=== PATIENT | female | born 1940 | race Caucasian/White ===

== ENCOUNTER → 2017-03-26 18:02 | Outpatient (CLI) | payer MEDICARE, BC, SELFPAY | PROVIDERS: Family Provider Family Medicine Geriatric Medicine; PCP Family Medicine Geriatric Medicine; Visit Provider Family Medicine Geriatric Medicine | DX: N39.0 Urinary tract infection, site not specified (principal) | CPT/HCPCS: 87086; 87088 ==

== ENCOUNTER → 2017-03-28 12:10 | Outpatient (CLI) | payer MEDICARE, BC, SELFPAY ==
[2017-03-28 13:37] LABS: Anion Gap 8 (5-15); BUN 12 mg/dL (7-18); BUN/Creat Ratio 18.7 RATIO (10-20); Chloride 98 mmol/L (98-107); Creatinine, Serum 0.64 mg/dL (0.55-1.02); EST Glomerular Filtration Rate 95 mL/min (>60); Est Glom Filt Rate - Afr Amer 115 mL/min (>60); Glucose 90 mg/dL (70-110); Magnesium 2.1 mg/dL (1.6-2.6); Potassium 3.8 mmol/L (3.5-5.1); Sodium Level 134 mmol/L (136-145); T4 Total, Thyroxin 9.8 ug/dL (4.8-13.9); Thyroid Stim Hormone (TSH) 2.08 uIU/mL (0.358-3.74)
== END ==
PROVIDERS: Family Provider Family Medicine Geriatric Medicine; PCP Family Medicine Geriatric Medicine; Visit Provider Internal Medicine Cardiovascular Disease
DX: I47.2 Ventricular tachycardia (principal); I10 Essential (primary) hypertension
CPT/HCPCS: 36415; 80048; 83735; 84436; 84443

== ENCOUNTER → 2017-04-12 06:36 | Outpatient (CLI) | payer MEDICARE, BC, SELFPAY ==
--- NOTE | 2017-04-12 09:44 | STRESSREP ---
Stress Test Report Date: 04/12/2017 Procedure: Oncologic stress nuclear imaging study Indications: Ventricular tachycardia; CAD; status post PCI; ICD: Preoperative cardiovascular evaluation Consent: Per the patient Procedure: The patient underwent pharmacologic (Regadenoson) evaluation with a peak heart rate of 83 bpm (58% predicted maximal heart rate) with a peak blood pressure 158/82 mmHg. The baseline ECG demonstrated normal sinus rhythm with anteroseptal MS pattern of indeterminate age cannot be excluded. The peak pharmacologic ECG demonstrated no obvious ECG changes. There was an occasional PVC pretest, during infusion, and recovery. The patient had no complaint of chest discomfort during pharmacologic infusion or recovery. The examination was discontinued secondary to completion of protocol. Impression: 1. Pharmacologic (Regadenoson) evaluation 2. Peak pharmacologic ECG with no obvious ECG changes 3. Occasional PVC pretest, during infusion, and recovery 4. Nuclear images pending Myocardial perfusion imaging study: Technique: The patient was injected with 11.1 mCi of technetium 99m Cardiolite and subsequently rest SPECT Cardiolite nuclear imaging was obtained in the horizontal long, vertical long, and short axis views. The patient underwent pharmacologic (Regadenoson) evaluation with a peak heart rate of 83 bpm (58% predicted maximal heart rate) with a peak blood pressure 158/82 mmHg area the patient was injected with 33.3 mCi of technetium 99m Cardiolite and subsequently stress SPECT Cardiolite nuclear imaging was obtained in the horizontal long, vertical long, and short axis views. A gated Cardiolite study at peak stress was obtained. Interpretation: Rest and stress SPECT Cardiolite nuclear imaging status post realignment, normalization, and attenuation correction, demonstrates an area of diminished absence of myocardial perfusion/tracer uptake involving portions of the basal towards distal lateral segments which status post stress appear to be somewhat more prominent compared with rest. There is notation of diminished end systolic thickening and brightening in the aforementioned areas. The gated Cardiolite study demonstrates diminished myocardial thickening and inward wall motion in the aforementioned areas. The reported LVEF is 34%. Impression: 1. Rest and stress SPECT current nuclear imaging demonstrate myocardial perfusion changes appearing compatible with an area of previous myocardial injury/infarction involving the basal towards distal lateral segments with post stress myocardial perfusion changes appearing compatible with mild roberto-infarct related myocardial ischemia. 2. The gated Cardiolite study reports an LVEF of 34%. This note was generated with [employer] software. It may contain incorrect words, spelling, and punctuation that were not noted in checking the note before signing.
--- NOTE | 2017-04-12 09:49 | STRESSREP_ITS ---
Stress Test Report Date: 04/12/2017 Procedure: Oncologic stress nuclear imaging study Indications: Ventricular tachycardia; CAD; status post PCI; ICD: Preoperative cardiovascular evaluation Consent: Per the patient Procedure: The patient underwent pharmacologic (Regadenoson) evaluation with a peak heart rate of 83 bpm (58% predicted maximal heart rate) with a peak blood pressure 158 /82 mmHg. The baseline ECG demonstrated normal sinus rhythm with anteroseptal MT pattern of indeterminate age cannot be excluded. The peak pharmacologic ECG demonstrated no obvious ECG changes. There was an occasional PVC pretest, during infusion, and recovery. The patient had no complaint of chest discomfort during pharmacologic infusion or recovery. The examination was discontinued secondary to completion of protocol. Impression: 1. Pharmacologic (Regadenoson) evaluation 2. Peak pharmacologic ECG with no obvious ECG changes 3. Occasional PVC pretest, during infusion, and recovery 4. Nuclear images pending Myocardial perfusion imaging study: Technique: The patient was injected with 11.1 mCi of technetium 99m Cardiolite and subsequently rest SPECT Cardiolite nuclear imaging was obtained in the horizontal long, vertical long, and short axis views. The patient underwent pharmacologic (Regadenoson) evaluation with a peak heart rate of 83 bpm (58% predicted maximal heart rate) with a peak blood pressure 158/82 mmHg area the patient was injected with 33.3 mCi of technetium 99m Cardiolite and subsequently stress SPECT Cardiolite nuclear imaging was obtained in the horizontal long, vertical long, and short axis views. A gated Cardiolite study at peak stress was obtained. Interpretation: Rest and stress SPECT Cardiolite nuclear imaging status post realignment, normalization, and attenuation correction, demonstrates an area of diminished absence of myocardial perfusion/tracer uptake involving portions of the basal towards distal lateral segments which status post stress appear to be somewhat more prominent compared with rest. There is notation of diminished end systolic thickening and brightening in the aforementioned areas. The gated Cardiolite study demonstrates diminished myocardial thickening and inward wall motion in the aforementioned areas. The reported LVEF is 34%. Impression: 1. Rest and stress SPECT current nuclear imaging demonstrate myocardial perfusion changes appearing compatible with an area of previous myocardial injury/infarction involving the basal towards distal lateral segments with post stress myocardial perfusion changes appearing compatible with mild roberto-infarct related myocardial ischemia. 2. The gated Cardiolite study reports an LVEF of 34%. This note was generated with [employer] software. It may contain incorrect words, spelling, and punctuation that were not noted in checking the note before signing.
--- NOTE | 2017-04-12 10:00 | ECHOD_ITS ---
Reason For Study: CAD Procedure This was a 2D Doppler, Color Flow transthoracic echocardiogram. The exam was of adequate technical quality. Exam performed in department. Left Ventricle Mildly dilated left ventricle. Moderate segmental systolic dysfunction (see wall motion). The estimated ejection fraction is 35 %. Transmitral diastolic flow velocities suggest moderate (stage 2) diastolic dysfunction (pseudonormal pattern). Lateral-Basal: Akinetic. Posterior-Basal: Hypokinetic. Mid-Lateral : Akinetic. Mid-Posterior: Akinetic. Lateral [place] : Hypokinetic. Right Ventricle Normal RV size. ICD or pacer leads identified within the right ventricle. Normal systolic function. Atria The left atrium is mildly enlarged. Normal right atrium. ICD or pacer leads identified within the right atrium. No doppler evidence for ASD. Mitral Valve There is no mitral annular calcification. Normal mitral valve. Trivial mitral valve insufficiency. Tricuspid Valve Normal tricuspid valve. Trivial tricuspid valve insufficiency. Right ventricular systolic pressure estimated to be 25 mmHg. Aortic Valve Trisinus/trileaflet aortic valve. Mild focal aortic valve calcification. Pulmonic Valve The pulmonic valve is not well visualized. Great Vessels Normal sized aortic root. Pericardium/Pleural No pericardial effusion. MMode/2D Measurements & Calculations LVIDd: 5.8 cm IVSd: 1.1 cm Ao root diam: 3.2 cm LVIDs: 5.2 cm LVPWd: 1.1 cm LA dimension: 4.5 cm RVDd: 2.8 cm FS: 9.5 % LAV(MOD-bp): 51.4 ml LA A4 area: 17.1 cm2 RA A4 area: 16.3 cm2 LAV(MOD-bp) Indexed: 31.1 ml/m2 LAV(MOD-sp2): 53.7 ml LAV(MOD-sp4): 45.3 ml Doppler Measurements & Calculations MV E max joshua: 60.4 cm/sec Lat Peak E' Joshua: 6.0 cm/sec Med Peak E' Joshua: 2.9 cm/sec MV A max joshua: 97.4 cm/sec E/E' lat: 10.1 E/E' med: 20.8 MV E/A: 0.62 Ao V2 max: 128.3 cm/sec LV V1 max: 82.4 cm/sec PA V2 max: 87.6 cm/sec Ao max P.6 mmHg LV V1 max P.7 mmHg TR max joshua: 232.4 cm/sec TR max P.6 mmHg Interpretation Summary Moderate segmental systolic dysfunction (see wall motion). The estimated ejection fraction is 35 %. The left atrium is mildly enlarged. Trivial mitral valve insufficiency. Trivial tricuspid valve insufficiency. Mild focal aortic valve calcification. Right ventricular systolic pressure estimated to be 25 mmHg. Transmitral diastolic flow velocities suggest diastolic dysfunction (pseudonormal pattern). ICD or pacer leads identified within the right atrium ICD or pacer leads identified within the right ventricle. Ordering Physician: Miller Weber Referring Physician: Enrike Dobbins Chi Performed By: Teagan Alan RDCS
== END ==
PROVIDERS: Family Provider Family Medicine Geriatric Medicine; PCP Family Medicine Geriatric Medicine; Visit Provider Internal Medicine Cardiovascular Disease
DX: I25.10 Atherosclerotic heart disease of native coronary artery without angina pectoris (principal); I47.2 Ventricular tachycardia
CPT/HCPCS: 78452; 93017; 93306; A9500; A4216; J2785

== ENCOUNTER → 2017-04-17 13:48 | Outpatient (CLI) | payer MEDICARE, BC, SELFPAY ==
--- NOTE | 2017-04-17 13:50 | RAD_ITS ---
STUDY: X-RAY CHEST REASON FOR EXAM: Female, 76 years old. Cardiac stent pacemaker TECHNIQUE: PA and lateral views of the chest. COMPARISON: June 05, 2014 chest x-ray FINDINGS: There is a left-sided pacer defibrillator. There is a stable calcified granuloma in the right apex measuring 3.7 mm. Otherwise, The lungs are clear and expanded. There is no demonstrated pleural abnormality. There is mild cardiac enlargement. Normal mediastinum and wili. Normal visualized pulmonary arteries. There is atherosclerotic tortuosity of the aortic arch and descending thoracic aorta. Normal visualized thoracic spine. Normal visualized ribs, clavicles, and shoulders. There is no demonstrated abnormality of the visualized soft tissue structures of the upper abdomen. RAD/Chest PA and Lateral IMPRESSION: Stable chest no evidence of acute focal infiltrate. Electronically Signed: Coral Marr MD at 15:34 EST Tel , Service support ,
== END ==
PROVIDERS: Family Provider Family Medicine Geriatric Medicine; PCP Family Medicine Geriatric Medicine; Visit Provider Internal Medicine Cardiovascular Disease
DX: I25.10 Atherosclerotic heart disease of native coronary artery without angina pectoris (principal); I25.5 Ischemic cardiomyopathy; Z95.810 Presence of automatic (implantable) cardiac defibrillator; I25.2 Old myocardial infarction; Z95.5 Presence of coronary angioplasty implant and graft
CPT/HCPCS: 71046

== ENCOUNTER → 2017-04-18 07:42 | Day surgery (SDC) | payer MEDICARE, BC, SELFPAY ==
[2017-04-17 08:17] VITALS: BMI 29.2
[2017-04-17 15:18] LABS: Hemoglobin 16.3 g/dl (12.0-15.0); Mean Corp Hgb Conc 32.6 g/gl (32-36); Mean Corpuscular Volume 79.6 fL (81-99); Mean Platelet Vol. 9.6 fl (6.2-12.0); Platelet Count 299 K/mm3 (150-450); RBC Distribution Width CV 17.5 % (11.6-14.6); RBC Distribution Width SD 50.5 fl (35.1-43.9); Red Blood Count 6.28 M/mm3 (4.2-5.4); White Blood Count 13.6 K/mm3 (4.4-11.0)
[2017-04-17 15:31] LABS: International Normalized Ratio 1.1; Prothrombin Time (Protime)PT. 13.9 SECONDS (11.7-14.9)
[2017-04-17 15:42] LABS: Scan Indicated on CBC? Y/N NO
--- NOTE | 2017-04-18 10:27 | CL.D_ITS ---
Patient Name: STANLEY RODRIGUEZ Study Date: 04/18/2017 Performing: Miller Weber MD Ht: 59.84 inches 152 cm : 1940 Wt: 149.91 lbs 68 kg Age: 76 Gender: female BSA: 1.65 PROCEDURE(S) PERFORMED GF85-ISI/COR/LV CLINICAL PROFILE AND INDICATIONS INDICATIONS: Ventricular Tachyarrythmias, Abnormal cardiac stress test Stress/Imaging Stress Test w/SPECT MPI: Yes Result: PositiveStress Test with SPECT MPI: Positive Angina Classification Anginal Classification w/in 2 Weeks: No symptoms CAD Presentations: Other: Ventricular Tachyarrhythmias CONCLUSIONS Elevated Left Ventricular End Diastolic Pressure Segmented LV systolic dysfunction- Mild LVEF: by LV gram 45 % [place] Multivessel CAD RECOMMENDATIONS Risk factor modification Medical therapy Staged percutaneous intervention DESCRIPTION OF PROCEDURE The patient arrived to the procedure lab. The risks and benefits of the procedure as well as a full d escription of our services here and current unavailability of surgical backup were fully explained to the patient and/or their significant other prior to the catheterization. The Timeout was completed, verifying the correct patient and procedure. The patient's procedural site was prepped and draped in the usual fashion. Local anesthetic was given subcutaneously to right groin region with Lidocaine 2%. Using a modified Seldinger technique, arterial access was obtained via the right femoral artery, a 4 Fr sheath was inserted Right Coronary Artery selective angiography was then performed in multiple vi ews using a 4 Fr. 3DRC catheter. Left Coronary Artery selective angiography was performed in multiple views using a 4 Fr. JL5 catheter. Left Ventriculography was performed in RIBEIRO projection using a 4 Fr . Pigtail catheter. LV to AO pullback pressures were then recorded.The arterial sheath was pulled and manual compression applied until hemostasis is achieved. CORONARY ANGIOGRAPHY DOMINANCE: Right Dominant LEFT HEART ASSESSMENT Left Ventricular Ejection Fraction: by LV Gram 45 % Inferior Basal Hypokinesis. Inferior Mid Hypokinesis Elevated Left Ventricular End Diastolic Pressure LVEDP: 24 mmHg LEFT MAIN: Mild luminal irregularities LEFT ANTERIOR DECENDING ARTERY: PROX LAD: Mild calcification, 25 % Stenosis MID LAD: 25 % Stenosis DIAGONAL 1: Ostial - 25 % Stenosis CIRCUMFLEX ARTERY: PROX CIRC: Previously placed stent is occluded OM 1: Mid - Fills late, faintly, and partially from left to left collateral flow RIGHT CORONARY ARTERY: Mild luminal irregularities OSTIAL RCA: Mild calcification MID RCA: Hazy: 75 % Stenosis COLLATERAL FLOW: Collateral flow from Left to Left Collateral flow from Right to Left VALVE FINDINGS: Normal Aortic Valve function Normal Mitral Valve function AORTIC ROOT: Angiographically normal COMPLICATIONS No Complications PROCEDURE MEDICATIONS Versed 1 mg IV Versed 1 mg IV Oxygen: 2 L/min via nasal cannula SUMMARY OF HEMODYNAMIC DATA Time AIR REST ECG 08:15:56 ECG 09:26:41 AO 123/71 (96) SA 09:47:18 LV 166/0, 24 09:57:01 LV 168/0, 23 09:57:07 LV 155/6, 22 09:58:02 LVp 154/3, 21 09:58:10 AOp 154/70 (103) 09:58:15 Signed By Miller Weber MD On 04/18/2017 10:26:40 Miller Weber MD
== END ==
PROVIDERS: Family Provider Family Medicine Geriatric Medicine; PCP Family Medicine Geriatric Medicine; Visit Provider Internal Medicine Cardiovascular Disease
DX: I25.10 Atherosclerotic heart disease of native coronary artery without angina pectoris (principal); R94.39 Abnormal result of other cardiovascular function study; I47.2 Ventricular tachycardia; I25.5 Ischemic cardiomyopathy; I10 Essential (primary) hypertension; Z95.810 Presence of automatic (implantable) cardiac defibrillator; Z95.5 Presence of coronary angioplasty implant and graft; I25.2 Old myocardial infarction; E78.5 Hyperlipidemia, unspecified; M19.90 Unspecified osteoarthritis, unspecified site; E87.6 Hypokalemia; D75.1 Secondary polycythemia; Z85.51 Personal history of malignant neoplasm of bladder; Z87.19 Personal history of other diseases of the digestive system; Z86.79 Personal history of other diseases of the circulatory system; Z90.49 Acquired absence of other specified parts of digestive tract; Z87.891 Personal history of nicotine dependence; Z79.82 Long term (current) use of aspirin; Z79.899 Other long term (current) drug therapy
CPT/HCPCS: 36415; 85027; 85610; 85730; 93458; 99152; 99153; J7040; Q9967; C1769; C1894

== ENCOUNTER → 2017-05-17 16:26 | Outpatient (CLI) | payer MEDICARE, BC, SELFPAY ==
--- NOTE | 2017-05-17 16:41 | RAD_ITS ---
STUDY: X-RAY CHEST REASON FOR EXAM: Female, 76 years old. Short of breath TECHNIQUE: PA and lateral COMPARISON: April 17, 2017 FINDINGS: There appears to be interstitial thickening bilaterally most pronounced the mid and lower lung zones. Tiny calcified granuloma in the right upper lobe.. There is no demonstrated pleural abnormality. Heart is mildly enlarged. Normal mediastinum and wili. Normal visualized pulmonary arteries. Tortuous aortic arch and descending thoracic aorta. Pacer noted on the left with electrode in right ventricle. Normal visualized thoracic spine. Normal visualized ribs, clavicles, and shoulders. There is no demonstrated abnormality of the visualized soft tissue structures of the upper abdomen. The interstitial thickening appears to have increased since prior exam particularly in the right lower lobe and possibly superimposed acute inflammatory changes not excluded. RAD/Chest PA and Lateral IMPRESSION: Bilateral interstitial thickening more pronounced in the right lower lobe which may be consistent with superimposed inflammatory disease Electronically Signed: César Guthrie MD at 17:45 EDT , Service support ,
--- NOTE | 2017-05-17 17:02 | EKG12_ITS ---
Test Reason : CP Blood Pressure : / mmHG Vent. Rate : 084 BPM Atrial Rate : 084 BPM P-R Int : 152 ms QRS Dur : 102 ms QT Int : 430 ms P-R-T Axes : 027 004 083 degrees QTc Int : 508 ms Sinus rhythm with frequent Premature ventricular complexes in a pattern of bigeminy Possible Left atrial enlargement Nonspecific ST and T wave abnormality Prolonged QT Abnormal ECG Confirmed by MARINO GRAVES, ANDREW ([id number]), visual effects editor KACIE POLK ([id number]) on 05/18/2017 8:12:40 AM Referred By: Enrike Dobbins Confirmed By:ANDREW PICHARDO MD
[2017-05-17 17:05] LABS: Absolute Lymphocyte Count 2.07 X10^3/ul (0.83-4.51); Absolute Neutrophil Count 13.4 X10^3/uL (2.0-7.7); Basophil# 0.04 X10^3/uL; Basophil% 0.2 % (0-1); Eosinophil# 0.02 X10^3/uL; Eosinophils% 0.1 % (0-5); Hemoglobin 15.6 g/dl (12.0-15.0); Lymphocyte # 2.07 X10^3/ul (4.0); Lymphocyte % 12.1 % (19-41); Mean Corp Hgb Conc 33.9 g/gl (32-36); Mean Corpuscular Hgb 26.5 pg (27.0-32.0); Mean Corpuscular Volume 78.2 fL (81-99); Mean Platelet Vol. 10.1 fl (6.2-12.0); Monocyte# 1.55 X10^3/uL; Monocyte% 9.1 % (0-10); Neutrophil # 13.37 X10^3/uL (2.7-7.7); Neutrophil % 78.2 % (47-70); Platelet Count 267 K/mm3 (150-450); RBC Distribution Width CV 18.4 % (11.6-14.6); RBC Distribution Width SD 51.8 fl (35.1-43.9); Red Blood Count 5.88 M/mm3 (4.2-5.4); White Blood Count 17.1 K/mm3 (4.4-11.0)
[2017-05-17 17:07] LABS: Differential Indicated SCAN CRITERIA MET; POSITIVE COUNT NO; POSITIVE DIFFERENTIAL YES; POSITIVE MORPHOLOGY NO
[2017-05-17 17:34] LABS: Anion Gap 8 (5-15); BUN 12 mg/dL (7-18); BUN/Creat Ratio 15.2 RATIO (10-20); CPK Total, Creatine Kinase 46 U/L (26-192); Chloride 96 mmol/L (98-107); Creatinine, Serum 0.79 mg/dL (0.55-1.02); EST Glomerular Filtration Rate 75 mL/min (>60); Est Glom Filt Rate - Afr Amer 90 mL/min (>60); Glucose 105 mg/dL (74-106); Potassium 3.6 mmol/L (3.5-5.1); Sodium Level 132 mmol/L (136-145)
[2017-05-17 18:09] LABS: Differential Comment SCANNED
[2017-05-19 08:36] LABS: Myoglobin, Serum 29 ng/mL (25-58)
== END ==
PROVIDERS: Family Provider Family Medicine Geriatric Medicine; PCP Family Medicine Geriatric Medicine; Visit Provider Family Medicine Geriatric Medicine
DX: R07.9 Chest pain, unspecified (principal); R06.02 Shortness of breath
CPT/HCPCS: 36415; 71046; 80048; 82550; 83874; 84484; 85025; 93005

== ENCOUNTER → 2017-05-18 10:38 | Outpatient (CLI) | payer MEDICARE, BC, SELFPAY | PROVIDERS: Family Provider Family Medicine Geriatric Medicine; PCP Family Medicine Geriatric Medicine; Visit Provider Family Medicine Geriatric Medicine | DX: R07.9 Chest pain, unspecified (principal) | CPT/HCPCS: 36415; 84484 ==

== ENCOUNTER 2017-06-07 11:52 | Day surgery (SDC) | payer MEDICARE, BC, SELFPAY ==
[2017-05-31 13:26] VITALS: BP 144/90; PULSE 62; RESP 16; TEMP 36.3; O2SAT 98; BMI 26.8
[2017-05-31 14:06] LABS: Hematocrit 48.3 % (37-47); Hemoglobin 15.8 g/dl (12.0-15.0); Mean Corp Hgb Conc 32.7 g/gl (32-36); Mean Corpuscular Hgb 26.1 pg (27.0-32.0); Mean Corpuscular Volume 79.7 fL (81-99); Mean Platelet Vol. 9.4 fl (6.2-12.0); Platelet Count 276 K/mm3 (150-450); RBC Distribution Width SD 51.6 fl (35.1-43.9); Red Blood Count 6.06 M/mm3 (4.2-5.4); White Blood Count 18.6 K/mm3 (4.4-11.0)
[2017-05-31 14:07] LABS: Scan Indicated on CBC? Y/N NO
[2017-06-07 12:09] VITALS: BP 153/90; PULSE 66; RESP 16; TEMP 36.1; O2SAT 99; BMI 26.8
[2017-06-07] MEDS: Clindamycin 900 MG/50 ML BAG 75 MG IV (13:36)
[2017-06-07] MEDS: Bupivacaine Mpf 0.5% 30 ML VIAL (13:49)
[2017-06-07 14:34] VITALS: BP 153/90; BP 183/85; PULSE 64; RESP 16; TEMP 36.1; O2SAT 97
[2017-06-07 14:45] VITALS: BP 146/82; BP 153/90; PULSE 62; RESP 16; O2SAT 96
[2017-06-07 15:00] VITALS: BP 141/76; BP 153/90; PULSE 60; RESP 16; O2SAT 97
[2017-06-07 15:03] VITALS: BP 138/75; BP 153/90; PULSE 74; RESP 16; TEMP 36.1; O2SAT 97
--- NOTE | 2017-06-07 15:15 | PCM.OPRPT ---
Problem List (1) Chronic dental infection Status: Acute Report of Operation Date of Procedure: 06/07/17 Pre-Operative Diagnosis: Chronic dental disease Post-Operative Diagnosis: Same Surgery/Procedure Performed:: Total Odontectomy Maxilla and removal tooth 29 Description of Surgical Findings:: Non restorable teeth Special Medications: None Specimen's removed: Teeth Drains: None Description of Procedure: Patient Identified in pre-op and the risks and benefits of the procedure were explained. Risks included pain ,injury to adjacent structures such as nerves and sinus cavities. Consent obtained. She was taken to OR and placed in supine position and then prepped and draped in the usual fashion for oral surgery. With the aid of IV sedation and local anesthesia the teeth were removed using full thickness flaps and elevation of the teeth. All sockets were de-granulated and suturing was done in a interrupted fashion. The patient tolerated it well and was taken to recovery in stable condition. The denture was placed at the completion of the procedure. All sponge and needle counts were correct.
[2017-06-07 15:26] VITALS: BP 153/90
== END 2017-06-07 15:31 | disposition home or self-care (01) ==
LOC: SDC 11:53 → AC 11:54
PROVIDERS: Family Provider Family Medicine Geriatric Medicine; PCP Family Medicine Geriatric Medicine; Visit Provider Dentist Oral and Maxillofacial Surgery
PROC: (CPT 41899; principal; 2017-06-07 13:15)
DX: K04.7 Periapical abscess without sinus (principal); Z85.51 Personal history of malignant neoplasm of bladder; F41.9 Anxiety disorder, unspecified; E78.00 Pure hypercholesterolemia, unspecified; Z79.899 Other long term (current) drug therapy; I49.3 Ventricular premature depolarization; I10 Essential (primary) hypertension; I25.5 Ischemic cardiomyopathy; I25.2 Old myocardial infarction; I25.10 Atherosclerotic heart disease of native coronary artery without angina pectoris; Z87.891 Personal history of nicotine dependence
CPT/HCPCS: 41899; 85027; J7120; J2405

== ENCOUNTER → 2017-06-19 15:58 | Outpatient (CLI) | payer MEDICARE, BC, SELFPAY ==
[2017-06-19 18:00] LABS: Absolute Lymphocyte Count 1.83 X10^3/ul (0.83-4.51); Absolute Neutrophil Count 9.3 X10^3/uL (2.0-7.7); Basophil# 0.03 X10^3/uL; Basophil% 0.2 % (0-1); Eosinophil# 0.06 X10^3/uL; Eosinophils% 0.5 % (0-5); Hematocrit 47.2 % (37-47); Hemoglobin 15.3 g/dl (12.0-15.0); Lymphocyte # 1.83 X10^3/ul (4.0); Lymphocyte % 14.8 % (19-41); Mean Corp Hgb Conc 32.4 g/gl (32-36); Mean Corpuscular Hgb 25.9 pg (27.0-32.0); Monocyte# 1.01 X10^3/uL; Monocyte% 8.2 % (0-10); Neutrophil # 9.34 X10^3/uL (2.7-7.7); Neutrophil % 75.8 % (47-70); POSITIVE COUNT NO; POSITIVE DIFFERENTIAL NO; POSITIVE MORPHOLOGY NO; Platelet Count 322 K/mm3 (150-450); RBC Distribution Width SD 49.4 fl (35.1-43.9); White Blood Count 12.3 K/mm3 (4.4-11.0)
[2017-06-19 18:27] LABS: ALB/GLOB Ratio 1.1 RATIO (0.9-2.4); AST(SGOT) 27 U/L (15-37); Alanine Aminotransfer ALT/SGPT 36 U/L (13-56); Albumin, Serum 3.5 g/dL (3.2-5.0); Alkaline Phosphatase 119 U/L (45-117); Anion Gap 8 (5-15); BUN 11 mg/dL (7-18); BUN/Creat Ratio 14.2 RATIO (10-20); Calcium,Total 8.9 mg/dL (8.5-10.1); Chloride 98 mmol/L (98-107); Creatinine, Serum 0.77 mg/dL (0.55-1.02); EST Glomerular Filtration Rate 77 mL/min (>60); Est Glom Filt Rate - Afr Amer 93 mL/min (>60); Globulin 3.3 g/dL (2.2-4.2); Glucose 89 mg/dL (74-106); Potassium 3.5 mmol/L (3.5-5.1); Protein, Total 6.8 g/dL (6.4-8.2); Sodium Level 133 mmol/L (136-145); Thyroid Stim Hormone (TSH) 1.92 uIU/mL (0.358-3.74)
[2017-06-20 09:50] LABS: Vitamin D,25 Hydroxy 21.3 ng/mL (29.95-100.01)
== END ==
PROVIDERS: Family Provider Family Medicine Geriatric Medicine; PCP Family Medicine Geriatric Medicine; Visit Provider Family Medicine Geriatric Medicine
DX: E55.9 Vitamin D deficiency, unspecified (principal); I10 Essential (primary) hypertension
CPT/HCPCS: 36415; 80053; 82306; 84443; 85025

== ENCOUNTER → 2017-09-25 13:23 | Outpatient (CLI) | payer MEDICARE, BC, SELFPAY ==
[2017-09-25 14:45] LABS: Absolute Lymphocyte Count 1.56 X10^3/ul (0.83-4.51); Absolute Neutrophil Count 9.5 X10^3/uL (2.0-7.7); Basophil# 0.04 X10^3/uL; Basophil% 0.3 % (0-1); Eosinophil# 0.11 X10^3/uL; Eosinophils% 0.9 % (0-5); Hematocrit 47.8 % (37-47); Hemoglobin 15.9 g/dl (12.0-15.0); Lymphocyte # 1.56 X10^3/ul (4.0); Lymphocyte % 12.7 % (19-41); Mean Corp Hgb Conc 33.3 g/gl (32-36); Mean Corpuscular Hgb 26.8 pg (27.0-32.0); Mean Corpuscular Volume 80.6 fL (81-99); Mean Platelet Vol. 9.8 fl (6.2-12.0); Monocyte# 1.09 X10^3/uL; Monocyte% 8.9 % (0-10); Neutrophil # 9.47 X10^3/uL (2.7-7.7); Platelet Count 279 K/mm3 (150-450); RBC Distribution Width CV 16.6 % (11.6-14.6); RBC Distribution Width SD 49.1 fl (35.1-43.9); Red Blood Count 5.93 M/mm3 (4.2-5.4); White Blood Count 12.3 K/mm3 (4.4-11.0)
[2017-09-25 14:47] LABS: POSITIVE COUNT NO; POSITIVE DIFFERENTIAL NO; POSITIVE MORPHOLOGY NO
[2017-09-25 14:50] LABS: International Normalized Ratio 1.1; Prothrombin Time (Protime)PT. 14.4 SECONDS (11.7-14.9)
[2017-09-25 15:06] LABS: Anion Gap 9 (5-15); BUN 13 mg/dL (7-18); BUN/Creat Ratio 18.9 RATIO (10-20); Calcium,Total 8.8 mg/dL (8.5-10.1); Chloride 96 mmol/L (98-107); Creatinine, Serum 0.69 mg/dL (0.55-1.02); EST Glomerular Filtration Rate 88 mL/min (>60); Est Glom Filt Rate - Afr Amer 106 mL/min (>60); Glucose 69 mg/dL (74-106); Potassium 3.7 mmol/L (3.5-5.1); Sodium Level 135 mmol/L (136-145)
== END ==
PROVIDERS: Family Provider Family Medicine Geriatric Medicine; PCP Family Medicine Geriatric Medicine; Visit Provider Internal Medicine Cardiovascular Disease
DX: R94.39 Abnormal result of other cardiovascular function study (principal); I10 Essential (primary) hypertension; I25.10 Atherosclerotic heart disease of native coronary artery without angina pectoris; I25.5 Ischemic cardiomyopathy; I25.2 Old myocardial infarction; Z79.899 Other long term (current) drug therapy
CPT/HCPCS: 36415; 80048; 85025; 85610

== ENCOUNTER 2017-10-02 10:03 | Observation (INO) | payer MEDICARE, BC, SELFPAY ==
[2017-10-01 09:58] VITALS: BMI 26.6
[2017-10-02] VITALS (63 sets, daily range): BP systolic 102–203; BP diastolic 56–108; PULSE 57–70; RESP 11–27; TEMP 36.6–36.8; O2SAT 19–100; BMI 27.5
--- NOTE | 2017-10-02 09:41 | CL.I_ITS ---
Patient Name: STANLEY RODRIGUEZ Study Date: 10/02/2017 Performing: August Pandey MD Ht: 61.81 inches 157 cm : 1940 Wt: 145.51 lbs 66 kg Age: 77 Gender: female BSA: 1.67 PROCEDURE(S) PERFORMED [id number] W OR WO PTCA, SINGLE CORONARY ARTERY CLINICAL PROFILE AND CO-MORBIDITIES Indications: Stable Known CAD, Cardiomyopathy, LV Dysfunction, Cardiac Arrythmia Heart Failure: NYHA Class: 2, Newly Diagnosed: No, Heart Failure Type: Systolic Stress/Imaging Stress Test w/SPECT MPI: Yes Result: Positive Intermediate Risk Stress Test with S PECT MPI: Positive Intermediate Risk Angina Classification Anginal Classification w/in 2 Weeks: No symptoms CAD Presentations: No Sxs, no angina. Comorbidities/Risk Factors: Hypertension Dyslipidemia Prior CHF Prior PCI Peripheral Arterial Disease CONCLUSIONS Successful PTCA/OLIVER of the of proximal RCA with a 3.5 x 38 Promus stent, post dilated throughout with a 4.0 x 12 NC balloon at 14 yulia; 75%-->0%, no dissection. Long 55 cm sheath used due to severe aorto iliac tortosity. RECOMMENDATIONS Highly recommend quitting all tobacco products Follow up with primary aquatic life laborer Risk factor modification ASA Indefinitley Plavix for at least 12 months Routine post interventional care Refer for Outpatient Cardiac Rehab Manual sheath removal per protocol Follow up with Dr. Weber Medical management of LCX ISR given mature L to L and R to L collaterals and akinetic lateral wall an d infarcted lateral wall on nuclear imaging. Unable to close RFA given severe aorto-iliac tortuosity. DESCRIPTION OF PROCEDURE The patient arrived to the procedure lab. The risks and benefits of the procedure as well as a full d escription of our services here and current unavailability of surgical backup were fully explained to the patient and/or their significant other prior to the catheterization. The Timeout was completed, verifying the correct patient and procedure. The patient's procedural site was prepped and draped in the usual fashion. Local anesthetic was given subcutaneously to right groin region with Lidocaine 2%. Using a modified Seldinger technique, arterial access was obtained via the right femoral artery, a 6 Fr sheath was inserted.. The images were reviewed and options discussed. A decision was then made to proceed with an Intervention, IVUS or other adjunct procedure. Arterial sheath was exchanged for a 6 Fr 45cm Sheath. HSII Guide catheter was inserted and engaged in to the RCA. BMW Guide wire was advanced to the RCA. 2.5x12 Emerge Balloon catheter was inserted. Ball oon catheter was advanced across lesion in the right coronary, proximal. PTCA balloon inflated at 8 a tms for 12 secs. PTCA balloon inflated at 6 atms for 10 secs. PTCA balloon inflated at 8 atms for 12 secs. Angiogram performed post balloon dilatation. 3.5x38 Synergy Drug Eluting stent was inserted. Dr ug Eluting stent was advanced across the lesion in the right coronary, proximal. 4x12 NC Emerge Ballo on catheter was inserted. Balloon catheter was advanced across lesion in the right coronary, proximal . PTCA balloon inflated at 4 atms for 12 secs. PTCA balloon inflated at 12 atms for 10 secs. PTCA bal loon inflated at 12 atms for 10 secs. PTCA balloon inflated at 14 atms for 8 secs. PTCA balloon infla guille at 16 atms for 12 secs. PTCA balloon inflated at 14 atms for 10 secs. Angiogram performed post st ent deployment. Arterial sheath was exchanged for a 6 Fr 11cm Sheath. The arterial sheath was suture d in place and capped INTERVENTION INFORMATION LESION SITE: RCA (Proximal) Lesion Complexity: High/C, lesion at bifurcation: No, thrombus present: No, lesion length: 38 mm, cul prit lesion: Yes Pre Stenosis: 75 % Pre intervention PRIMITIVO flow: 3 PROCEDURE: Drug Eluting Stent with pre and post dilatation Post Stenosis: 0 % Post intervention PRIMITIVO flow: 3 Lesion Devices: Benoit .014 BMW [place] Straight 190cm Medtronic 6 Fr HSII 100cm Guide Catheter Gamal Sci EMERGE MR 2.50x12 BALLOON Gamal Sci Synergy MR OLIVER 3.50x38 Gamal Sci NC EMERGE MR 4.00x12 BALLOON COMPLICATIONS No Complications PROCEDURE MEDICATIONS Versed 1 mg IV Versed 1 mg IV Morphine 2 mg IV Oxygen: 2 L/min via nasal cannula Heparin 6000 unit(s) IV 10/02/2017 08:57:52 Nitro 200 mcg IC 10/02/2017 08:59:45 Nitro 200 mcg IC 10/02/2017 08:59:45 Nitro glycerin 25mg / 250ml D5W @ 5 mcg/min IV started 10/02/2017 09:14:38 Nitro 200 mcg IC 10/02/2017 09:15:57 Nitro 200 mcg IC 10/02/2017 09:17:54 Zofran 4 mg IV 10/02/2017 09:40:38 SUMMARY OF HEMODYNAMIC DATA Time AIR REST ECG 07:07:20 AO 195/99 (129) SA 08:59:04 AO 138/62 (95) 09:05:58 Signed By August Pandey MD On 10/02/2017 09:41:41 Signed By August Pandey MD On 10/02/2017 09:40:59 August Pandey MD
[2017-10-02 09:46] LABS: ACT Activated Clotting Time 246 sec (74-137)
--- NOTE | 2017-10-02 10:36 | EKG12_ITS ---
Test Reason : POST-STENT Blood Pressure : / mmHG Vent. Rate : 061 BPM Atrial Rate : 061 BPM P-R Int : 162 ms QRS Dur : 114 ms QT Int : 486 ms P-R-T Axes : -07 -11 081 degrees QTc Int : 489 ms Normal sinus rhythm Nonspecific ST and T wave abnormality Prolonged QT Abnormal ECG Confirmed by JENAE GRAVES, DESIRAE ([id number]), manuscript editor KACIE POLK ([id number]) on 10/05/2017 2:22:54 PM Referred By: August Pandey Confirmed By:DESIRAE EMANUEL MD
[2017-10-02 10:51] LABS: ACT Activated Clotting Time 180 sec (74-137)
--- NOTE | 2017-10-02 12:49 | CRPHASE1 ---
Patient Data/Charges Phase II Referral:: [facility] Start Phase II:: FOLLOWING CARDIOLOGY OFFICE VISIT Risk Factors/Lifestyle Smoking Status: Former smoker Hx Hypertension: Yes Hx Diabetes Mellitus Type 1: No Hx Diabetes Mellitus Type 2: No Hx Metabolic Disorders: No Hx Dyslipidemia: Yes Hx Obesity: No Height: 5 ft 2 in - BMI 26.7 Post-Menopausal: Yes Stress: Home/Family Risk Factor for Sedentary Lifestyle: Moderate Risk Family History: Family History (Last Reviewed 09/03/17 @ 14:39 by Angelica Chan) Mother Heart disease Myocardial infarction Brother Cancer CAD (coronary artery disease) Brother CAD (coronary artery disease) Brother CAD (coronary artery disease) Past Cardiac Illness: Coronary Artery Disease, Myocardial Infarction, Previous PCI w/Stent Phase I Education Given On:: [place], Nutrition, Antiplatelet medication Issues Affecting Care:: None Knowledge of Condition:: Yes Learning Preferences: Verbal, Written Medical/Surgical History [place]:: No Angina:: No CAD:: Yes Cardiomyopathy:: Yes - HISTORY OF ISCHEMIC CARDIOMYOPATHY Diabetes:: No Hypertension:: Yes Dyslipidemia:: Yes PVD:: Yes Discharge/Home/Social Eval Discharge Disposition: Home
--- NOTE | 2017-10-02 12:52 | CRPHASE1_ITS ---
Patient Data/Charges Phase II Referral:: [facility] Start Phase II:: FOLLOWING CARDIOLOGY OFFICE VISIT Risk Factors/Lifestyle Smoking Status: Former smoker Hx Hypertension: Yes Hx Diabetes Mellitus Type 1: No Hx Diabetes Mellitus Type 2: No Hx Metabolic Disorders: No Hx Dyslipidemia: Yes Hx Obesity: No Height: 5 ft 2 in - BMI 26.7 Post-Menopausal: Yes Stress: Home/Family Risk Factor for Sedentary Lifestyle: Moderate Risk Family History: Family History (Last Reviewed 09/03/17 @ 14:39 by Angelica Chan) Mother Heart disease Myocardial infarction Brother Cancer CAD (coronary artery disease) Brother CAD (coronary artery disease) Brother CAD (coronary artery disease) Past Cardiac Illness: Coronary Artery Disease, Myocardial Infarction, Previous PCI w/Stent Phase I Education Given On:: [place], Nutrition, Antiplatelet medication Issues Affecting Care:: None Knowledge of Condition:: Yes Learning Preferences: Verbal, Written Medical/Surgical History [place]:: No Angina:: No CAD:: Yes Cardiomyopathy:: Yes - HISTORY OF ISCHEMIC CARDIOMYOPATHY Diabetes:: No Hypertension:: Yes Dyslipidemia:: Yes PVD:: Yes Discharge/Home/Social Eval Discharge Disposition: Home
--- NOTE | 2017-10-02 12:53 | CRPH1.INST_ITS ---
General Education CAD and cardiac anatomy and function:: Patient communicates acknowledgment Explanation of diagnoses and procedures:: Patient communicates acknowledgment Sign/Symptoms of KS:: Patient communicates acknowledgment Antiplatelet therapy: Patient communicates acknowledgment Proper use of NTG-SL: Patient communicates acknowledgment Emergency procedures and activation of EMS: Patient communicates acknowledgment Compliance of all prescribed medications: Patient communicates acknowledgment Smoking Patient Nicotine/Smoking Risk Factors Are:: Cigarettes Recommendations Include:: Previous smoker; encourage continued cessation Nicotine/Smoking Response Code:: Patient communicates acknowledgment Dyslipidemia Patient Dyslipidemia Risk Factors Are:: Total Cholesterol, Triglycerides, HDL, LDL Recommendations Include:: Lipid profile not available, Reviewed NCEP/ATP guidelines, Therapeutic Lifestyle Change dietary guidelines Dyslipidemia Response Code:: Patient communicates acknowledgment Overweight/Obesity Patient Overweight/Obesity Risk Factors Are:: BMI Normal [24-29 & > 65 years old ] Hypertension Recommendations Include:: Maintain BP <130/85, DASH dietary guidelines, Decrease /maintain normal body weight, Moderation of ETOH Hypertension:: Patient communicates acknowledgment Heart Disease Patient Heart Disease Risk Factors Are:: Previous cardiac event Heart Disease Response Code:: Patient communicates acknowledgment Diabetes Patient Diabetes Risk Factors Are:: No documented hx of diabetes Metabolic Syndrome Recommendations Include:: Does not meet criteria Sedentary Patient Sedentary Risk Factors Are:: Lack of regular exercise Recommendations Include:: Aerobic exercise 5-7 times/week for 20-30 minutes continuously, Benefits of regular exercise, Discussed home walking program, Monitored Outpatient Cardiac Rehab Sedentary Response Code:: Patient communicates acknowledgment Stress Recommendations Include:: Identification of stressors, and assessment of coping skills, Stress management techniques Stress Response Code:: Patient communicates acknowledgment
[2017-10-02] MEDS: 0.9% Normal Saline 1,000 ML 150 ML IV (12:55)
[2017-10-02] MEDS: hydroCHLOROthiazide 25 MG Tablet PO (16:37)
[2017-10-02] MEDS: fentaNYL 100 MCG/2 ML Ampul 25 MCG IV (17:58)
[2017-10-02] MEDS: Midazolam 2 MG/2 ML Syringe 1 MG IV (17:58)
[2017-10-02] MEDS: Morphine 2 MG/ML Syringe IV ×2 (18:29→22:46)
--- NOTE | 2017-10-02 19:41 | NURSING ---
174-Pt bedrest up at 1730. Got pt up to bedside commode with no issues. Pt urinated and then attempted to wipe. [place] a POP. Nurse looked at the floor and blood was on the floor. Immediately put pressure on cath site and called for help. RN x 4 lifted pt back to bed and immediately 2 RNs applied pressure. 174- Dr. Pandey paged via veneer slicing machine operator 1746-Updated Dr. Pandey. Per Dr. Pandey, give 1 mg versed IV x 1, 25 mcg fentanyl IV x 1, apply femstop at 40 mmhg of pressure after holding manual pressure for at least 30 minutes. Insert romero. Keep complete bedrest until tomorrow. 1757- fentanyl and versed given as ordered. 1821- pt still complaining of severe pain. Dr. Pandey paged. Ordered to give previously ordered 2 mg morphine. 1824-Manual pressure released. While holding manual pressure, hematoma noted and pressed out over pubic bone by 1 RN while 2 RN's held pressure. 1828-Morphine given. 184- romero placed. 184- Femstop placed.
[2017-10-02] MEDS: Metoprolol(XL)Succ 50 MG Tablet PO (21:59)
[2017-10-02] MEDS: Atorvastatin Calcium 40 MG Tablet PO (21:59)
[2017-10-02] MEDS: Lisinopril 20 MG Tablet PO (22:00)
[2017-10-02] MEDS: Zolpidem Tartrate 5 MG Tablet PO (22:00)
[2017-10-02] MEDS: 0.9% NaCl Peripheral Flush Adult/Peds IV (22:47)
[2017-10-03] VITALS (34 sets, daily range): BP systolic 106–180; BP diastolic 56–94; PULSE 57–69; RESP 14–26; TEMP 36.6–37; O2SAT 95–99
[2017-10-03 04:25] LABS: Hematocrit 40.9 % (37-47); Hemoglobin 13.8 g/dl (12.0-15.0); Mean Corp Hgb Conc 33.7 g/gl (32-36); Mean Corpuscular Hgb 26.6 pg (27.0-32.0); Mean Platelet Vol. 9.6 fl (6.2-12.0); Platelet Count 257 K/mm3 (150-450); RBC Distribution Width CV 16.8 % (11.6-14.6); RBC Distribution Width SD 48.2 fl (35.1-43.9); Red Blood Count 5.18 M/mm3 (4.2-5.4); Scan Indicated on CBC? Y/N NO; White Blood Count 14.2 K/mm3 (4.4-11.0)
[2017-10-03 04:42] LABS: Anion Gap 11 (5-15); BUN 10 mg/dL (7-18); BUN/Creat Ratio 17.3 RATIO (10-20); Calcium,Total 8.2 mg/dL (8.5-10.1); Chloride 99 mmol/L (98-107); Cholesterol 102 mg/dL (200); Creatinine, Serum 0.58 mg/dL (0.55-1.02); EST Glomerular Filtration Rate 108 mL/min (>60); Est Glom Filt Rate - Afr Amer 130 mL/min (>60); Estimated Creatinine Clearance 36.67 ml/min; Glucose 107 mg/dL (74-106); High Density Lipoprotein 63 mg/dL; Potassium 3.3 mmol/L (3.5-5.1); Sodium Level 135 mmol/L (136-145); Triglycerides 59 mg/dL; Very Low Density Lipoprotein 12 mg/dL (5-40)
[2017-10-03] MEDS: Aspirin E.C. 81 MG Tablet PO (07:45)
[2017-10-03] MEDS: hydroCHLOROthiazide 25 MG Tablet PO (07:45)
[2017-10-03] MEDS: Isosorbide Mononitrate 30 MG Tablet PO ×2 (07:45→11:34)
[2017-10-03] MEDS: Multivitamins,Therapeutic Tablet 1 TABLET PO (07:45)
[2017-10-03] MEDS: Metoprolol(XL)Succ 50 MG Tablet PO (07:46)
[2017-10-03] MEDS: Clopidogrel Bisulfate 75 MG Tablet PO (07:46)
[2017-10-03] MEDS: Lisinopril 20 MG Tablet PO (07:46)
--- NOTE | 2017-10-03 08:23 | NURSING ---
Give medications this am per dr. Pandey request. fem-stop off with shift manager nurse,desirae, at 0715.
--- NOTE | 2017-10-03 08:47 | PCM.DC.CCA ---
Discharge Diet: Low fat/ Low Cholesterol May shower in (days): 1 Lifting Restrictions: 10 pounds and also avoid any pushing or pulling for 3 days after your test. Call your doctor if your incision/area has: Continuous Slow Oozing, Increased Pain/ Swelling, Increased Redness, Foul Smelling Discharge, Swelling at the incision site Call your doctor if you observe: Fever of 101 or Higher, Shortness of breath, Chest pain Remove Dressing in (days):: 1 Cleanse incision/area with: Soap & Water Additional Dressing/Incision Instructions:: Keep the dressing (bandage) on until the next morning. You may then shower, but do not take a tub bath for 5 days after your test. It is normal to have some tenderness and discomfort at the puncture site. Sometimes bruising also occurs. However, if pain, numbness, or coldness occurs below the puncture site (in your leg, toes, arms or fingers) call your doctor at once. You may have a small, marble sized knot at the puncture site. This is normal. Do not rub it. It will go away in 4-6 weeks. Bleeding can occur from the area where the puncture was done. Blood may spurt or drip from the site. If blood spurts, apply pressure right away to stop bleeding and call 911. Although rare, bleeding into the tissue (hematoma) can also occur. If this happens, a large, firm area goose egg under the skin will appear. If any of these occur, lie down as flat as you can and have someone apply firm pressure to the cath site with a gauze pad or a clean washcloth for 10-15 minutes. Call 911 or go to the Emergency Department. Additional Instructions: You will need to stay on your plavix for at least one year before it is stopped for any reason Allergies/Adverse Reactions: Allergies doxazosin [From Cardura] Allergy (Severe, Verified 10/01/17 10:05) Itching Influenza Virus Vaccines Adverse Reaction (Verified 10/01/17 10:05) Unknown Medications to take at Discharge Alprazolam [Xanax] 0.25 tab PO DAILY 05/24/16 Aspirin [Aspirin EC] 81 mg PO DAILY 05/24/16 Multivitamins,Therapeutic [Multivitamin] 1 tab PO DAILY 05/24/16 Nitroglycerin 0.4 mg SL UD PRN MDD Q5min prn 05/24/16 atorvastatin 40 mg tablet 40 mg PO QDAY 03/27/17 lisinopril 10 mg tablet 20 mg PO BID tab 03/27/17 metoprolol succinate ER 50 mg tablet,extended release 24 hr 50 mg PO BID #180 tab 03/28/17 hydrochlorothiazide 25 mg tablet 25 mg PO DAILY #90 tab 06/18/17 isosorbide mononitrate ER 60 mg tablet,extended release 24 hr 30 mg PO QAM #30 tab 09/03/17 clopidogrel 75 mg tablet 75 mg PO QDAY #30 tab 09/20/17 Lorazepam [Ativan] 1 mg PO Q6H PRN PRN tablet 10/03/17 Primary Care Physician: Enrike Dobbins Chi, MD [Primary Care Provider] - Test Results: Test results from this visit will be discussed in further detail at your follow-up appointment, if applicable. Please Follow Up With: Kuldip Jeffrey NP-C When: 10/17/2017 at 0930 Cardiac Rehabilitation Info Cardiac Rehabilitation Program Information: Cardiac Rehabilitation is important for patients like you who are recovering from a heart problem. Cardiac rehabilitation programs are recognized as integral to the continued care of the patient with coronary heart disease. The cardiac rehabilitation program is designed to optimize a patient's physical, psychological, and social functioning. Health care director work in cardiac rehabilitation programs and assist you with getting the treatments you need to get stronger and healthier - like exercise, healthy eating habits, and medications. Cardiac rehabilitation has been show to help people with heart problems live longer and have better life enjoyment than people who do not go to cardiac rehabilitation. Please contact the Cardiac Rehabilitation Program at [facility] at in two weeks if you have not heard from them.
--- NOTE | 2017-10-03 08:53 | DCINST_ITS ---
Discharge Diet: Low fat/ Low Cholesterol May shower in (days): 1 Lifting Restrictions: 10 pounds and also avoid any pushing or pulling for 3 days after your test. Call your doctor if your incision/area has: Continuous Slow Oozing, Increased Pain/ Swelling, Increased Redness, Foul Smelling Discharge, Swelling at the incision site Call your doctor if you observe: Fever of 101 or Higher, Shortness of breath, Chest pain Remove Dressing in (days):: 1 Cleanse incision/area with: Soap & Water Additional Dressing/Incision Instructions:: Keep the dressing (bandage) on until the next morning. You may then shower, but do not take a tub bath for 5 days after your test. It is normal to have some tenderness and discomfort at the puncture site. Sometimes bruising also occurs. However, if pain, numbness, or coldness occurs below the puncture site (in your leg, toes, arms or fingers) call your doctor at once. You may have a small, marble sized knot at the puncture site. This is normal. Do not rub it. It will go away in 4-6 weeks. Bleeding can occur from the area where the puncture was done. Blood may spurt or drip from the site. If blood spurts, apply pressure right away to stop bleeding and call 911. Although rare, bleeding into the tissue (hematoma) can also occur. If this happens, a large, firm area goose egg under the skin will appear. If any of these occur, lie down as flat as you can and have someone apply firm pressure to the cath site with a gauze pad or a clean washcloth for 10-15 minutes. Call 911 or go to the Emergency Department. Additional Instructions: You will need to stay on your plavix for at least one year before it is stopped for any reason Allergies/Adverse Reactions: Allergies doxazosin [From Cardura] Allergy (Severe, Verified 10/01/17 10:05) Itching Influenza Virus Vaccines Adverse Reaction (Verified 10/01/17 10:05) Unknown Medications to take at Discharge Alprazolam [Xanax] 0.25 tab PO DAILY 05/24/16 Aspirin [Aspirin EC] 81 mg PO DAILY 05/24/16 Multivitamins,Therapeutic [Multivitamin] 1 tab PO DAILY 05/24/16 Nitroglycerin 0.4 mg SL UD PRN MDD Q5min prn 05/24/16 atorvastatin 40 mg tablet 40 mg PO QDAY 03/27/17 lisinopril 10 mg tablet 20 mg PO BID tab 03/27/17 metoprolol succinate ER 50 mg tablet,extended release 24 hr 50 mg PO BID #180 tab 03/28/17 hydrochlorothiazide 25 mg tablet 25 mg PO DAILY #90 tab 06/18/17 isosorbide mononitrate ER 60 mg tablet,extended release 24 hr 30 mg PO QAM #30 tab 09/03/17 clopidogrel 75 mg tablet 75 mg PO QDAY #30 tab 09/20/17 Lorazepam [Ativan] 1 mg PO Q6H PRN PRN tablet 10/03/17 Primary Care Physician: Enrike Dobbins Chi, MD [Primary Care Provider] - Test Results: Test results from this visit will be discussed in further detail at your follow- up appointment, if applicable. Please Follow Up With: Kuldip Jeffrey NP-C When: 10/17/2017 at 0930 Cardiac Rehabilitation Info Cardiac Rehabilitation Program Information: Cardiac Rehabilitation is important for patients like you who are recovering from a heart problem. Cardiac rehabilitation programs are recognized as integral to the continued care of the patient with coronary heart disease. The cardiac rehabilitation program is designed to optimize a patient's physical, psychological, and social functioning. Health customer care voice consultant work in cardiac rehabilitation programs and assist you with getting the treatments you need to get stronger and healthier - like exercise, healthy eating habits, and medications. Cardiac rehabilitation has been show to help people with heart problems live longer and have better life enjoyment than people who do not go to cardiac rehabilitation. Please contact the Cardiac Rehabilitation Program at [facility] at in two weeks if you have not heard from them.
--- NOTE | 2017-10-03 10:00 | EKG12_ITS ---
Test Reason : AM EJG Blood Pressure : / mmHG Vent. Rate : 060 BPM Atrial Rate : 060 BPM P-R Int : 170 ms QRS Dur : 116 ms QT Int : 486 ms P-R-T Axes : -05 -10 098 degrees QTc Int : 486 ms Normal sinus rhythm Left ventricular hypertrophy with QRS widening T wave abnormality, consider lateral ischemia Prolonged QT Abnormal ECG Confirmed by JENAE GRAVES, DESIRAE ([id number]), sound editor KACIE POLK ([id number]) on 10/05/2017 2:09:54 PM Referred By: August Pandey Confirmed By:DESIRAE EMANUEL MD
--- NOTE | 2017-10-03 10:06 | PCM.PN.CARD ---
Subjectve: Patient doing well this morning. Patient had an episode of right groin bleeding yesterday while she was on the commode, immediately carried back to her bed and direct manual pressure was held for an additional half hour. FemoStop device was placed overnight at 40 mmHg, and this morning her right groin is clean/dry/intact without evidence of thrills, hematoma or bruit, or tenderness. She has some mild ecchymosis in the medial portion but it is nontender. She has 2+ DP PT pulses bilaterally. Hemoglobin and creatinine appear to be within nominal limits. EKG this morning shows normal sinus rhythm with resolving J-point elevation in V1 V2. No chest pain overnight. Telemetry normal sinus rhythm with PVCs and ventricular triplets. No sustained ventricular arrhythmias. Nitro drip still in place given her hypertension from yesterday. Objective: Vital Signs Temp Pulse Resp BP Pulse Ox 98.6 F 65 16 126/61 H 95 10/03/17 07:00 10/03/17 09:00 10/03/17 09:00 10/03/17 09:00 10/03/17 09:00 Oxygen Flow Rate (L/min) 2 Oxygen Delivery Method Room Air Weight: 141 lb 5.061 oz Body Mass Index (BMI) 27.5 Intake and Output for Last 24 Hours 10/01/17 10/02/17 10/03/17 23:59 23:59 23:59 Intake Total 1378 / 1378 798.0 / 798.0 Output Total 450 / 450 Balance 1378 / 1378 348.0 / 348.0 General: Awake, Alert, Oriented x 3 HEENT: PERRL, EOMI, Sclera Non Icteric Neck: Supple, Good ROM, No Lymph Node Enlargement Lungs: Clear to auscultation Cardiovascular: Regular Rhythm, Normal S1, Normal S2, No Murmurs, No Rubs, No Gallops Vascular: No Carotid Bruits, Normal Femoral Pulses, Normal Radial Pulses, Normal Dorsalis Pedal Pulse, Normal Posterior Tibial Pulses Abdomen: Bowel Sounds Present, Soft, Non Tender, No HSM, No Organomegaly Extremities: No Cyanosis, No Clubbing, No edema Neurological: No Focal Motor or Sensory Deficit 10/03/17 04:17: WBC 14.2 H, RBC 5.18, Hgb 13.8, Hct 40.9, MCV 79.0 L, MCH 26.6 L, MCHC 33.7, RDW 16.8 H, RDW Differential 48.2 H, Plt Count 257, MPV 9.6 10/03/17 04:17: Sodium 135 L, Potassium 3.3 L, Chloride 99, Carbon Dioxide 25.0, Anion Gap 11, BUN 10, Creatinine 0.58, Est GFR (MDRD) Af Amer 130, Est GFR (MDRD) Non-Af 108, BUN/Creatinine Ratio 17.3, Glucose 107 H, Calcium 8.2 L, Triglycerides 59, Cholesterol 102, LDL Cholesterol 27, VLDL Cholesterol 12, HDL Cholesterol 63 Rhythm: EKG: ECHO: Stress Test: Cardiac Cath: PCI: CT Surgery: Holter monitor: EPS: PPM: CXR: Chest CT Scan: Medical Necessity - Tobacco Use Smoking Status: Former smoker Assessment/Plan 1. Coronary artery disease: No chest pain overnight. Patient did have some mouth and jaw pain after the angioplasty yesterday most likely from plaque shift down a small acute marginal branch. Her symptoms have completely resolved. Her EKG has normalized. She has no further chest pain or jaw pain. Her right groin appears to be clean/dry/intact without evidence of thrills, bruits or hematoma. She did have a groin bleed after 6 hours of bedrest yesterday, but I cannot detect any bruits that would suggest pseudoaneurysm at this time. I recommend the patient continue her aspirin, Plavix, Lopressor, Imdur, lisinopril, and hydrochlorothiazide. Would recommend titrating up her Imdur to maintain an MIP of greater than 60 and a systolic pressure in the 130s given her severe LV dysfunction. 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 2. Hyperlipidemia: Continue statin based medications. Repeat lipid profile after cardiac rehab. 3. The patient will be discharged home after we have successfully gotten her off her nitroglycerin drip and assuming her blood pressure and groin are stable. She will follow-up with Dr. Weber going forward. Code Visit Inpatient E&M: 48167 Subs Hosp L2
--- NOTE | 2017-10-03 10:11 | PN.CARD_ITS ---
Subjectve: Patient doing well this morning. Patient had an episode of right groin bleeding yesterday while she was on the commode, immediately carried back to her bed and direct manual pressure was held for an additional half hour. FemoStop device was placed overnight at 40 mmHg, and this morning her right groin is clean/dry/intact without evidence of thrills, hematoma or bruit, or tenderness. She has some mild ecchymosis in the medial portion but it is nontender. She has 2+ DP PT pulses bilaterally. Hemoglobin and creatinine appear to be within nominal limits. EKG this morning shows normal sinus rhythm with resolving J-point elevation in V1 V2. No chest pain overnight. Telemetry normal sinus rhythm with PVCs and ventricular triplets. No sustained ventricular arrhythmias. Nitro drip still in place given her hypertension from yesterday. Objective: Vital Signs Temp Pulse Resp BP Pulse Ox 98.6 F 65 16 126/61 H 95 10/03/17 07:00 10/03/17 09:00 10/03/17 09:00 10/03/17 09:00 10/03/17 09:00 Oxygen Flow Rate (L/min) 2 Oxygen Delivery Method Room Air Weight: 141 lb 5.061 oz Body Mass Index (BMI) 27.5 Intake and Output for Last 24 Hours 10/01/17 10/02/17 10/03/17 23:59 23:59 23:59 Intake Total 1378 / 1378 798.0 / 798.0 Output Total 450 / 450 Balance 1378 / 1378 348.0 / 348.0 General: Awake, Alert, Oriented x 3 HEENT: PERRL, EOMI, Sclera Non Icteric Neck: Supple, Good ROM, No Lymph Node Enlargement Lungs: Clear to auscultation Cardiovascular: Regular Rhythm, Normal S1, Normal S2, No Murmurs, No Rubs, No Gallops Vascular: No Carotid Bruits, Normal Femoral Pulses, Normal Radial Pulses, Normal Dorsalis Pedal Pulse, Normal Posterior Tibial Pulses Abdomen: Bowel Sounds Present, Soft, Non Tender, No HSM, No Organomegaly Extremities: No Cyanosis, No Clubbing, No edema Neurological: No Focal Motor or Sensory Deficit 10/03/17 04:17: WBC 14.2 H, RBC 5.18, Hgb 13.8, Hct 40.9, MCV 79.0 L, MCH 26.6 L , MCHC 33.7, RDW 16.8 H, RDW Differential 48.2 H, Plt Count 257, MPV 9.6 10/03/17 04:17: Sodium 135 L, Potassium 3.3 L, Chloride 99, Carbon Dioxide 25.0 , Anion Gap 11, BUN 10, Creatinine 0.58, Est GFR (MDRD) Af Amer 130, Est GFR ( MDRD) Non-Af 108, BUN/Creatinine Ratio 17.3, Glucose 107 H, Calcium 8.2 L, Triglycerides 59, Cholesterol 102, LDL Cholesterol 27, VLDL Cholesterol 12, HDL Cholesterol 63 Rhythm: EKG: ECHO: Stress Test: Cardiac Cath: PCI: CT Surgery: Holter monitor: EPS: PPM: CXR: Chest CT Scan: Medical Necessity - Tobacco Use Smoking Status: Former smoker Assessment/Plan 1. Coronary artery disease: No chest pain overnight. Patient did have some mouth and jaw pain after the angioplasty yesterday most likely from plaque shift down a small acute marginal branch. Her symptoms have completely resolved. Her EKG has normalized. She has no further chest pain or jaw pain. Her right groin appears to be clean/dry/intact without evidence of thrills, bruits or hematoma. She did have a groin bleed after 6 hours of bedrest yesterday, but I cannot detect any bruits that would suggest pseudoaneurysm at this time. I recommend the patient continue her aspirin, Plavix, Lopressor, Imdur, lisinopril, and hydrochlorothiazide. Would recommend titrating up her Imdur to maintain an MIP of greater than 60 and a systolic pressure in the 130s given her severe LV dysfunction. 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 2. Hyperlipidemia: Continue statin based medications. Repeat lipid profile after cardiac rehab. 3. The patient will be discharged home after we have successfully gotten her off her nitroglycerin drip and assuming her blood pressure and groin are stable. She will follow-up with Dr. Weber going forward. Code Visit Inpatient E&M: [id number] Subs Hosp L2
== END 2017-10-03 15:00 | disposition home or self-care (01) ==
LOC: ICU 19:57 → CLSP 10-03 09:19
PROVIDERS: Admitting Provider Internal Medicine Cardiovascular Disease; Family Provider Family Medicine Geriatric Medicine; PCP Family Medicine Geriatric Medicine; Visit Provider Internal Medicine Cardiovascular Disease
DX: I25.10 Atherosclerotic heart disease of native coronary artery without angina pectoris (principal); Z95.810 Presence of automatic (implantable) cardiac defibrillator; I25.5 Ischemic cardiomyopathy; E78.5 Hyperlipidemia, unspecified; Z95.5 Presence of coronary angioplasty implant and graft; R06.02 Shortness of breath; Z79.899 Other long term (current) drug therapy; Z79.82 Long term (current) use of aspirin; Z85.51 Personal history of malignant neoplasm of bladder; I25.2 Old myocardial infarction; Z87.891 Personal history of nicotine dependence; I11.0 Hypertensive heart disease with heart failure; I50.20 Unspecified systolic (congestive) heart failure; I73.9 Peripheral vascular disease, unspecified
CPT/HCPCS: 80048; 80061; 85027; 85347; 92928; 93005; 99152; 99153; J7030; J7040; A4216; C1725; C1769; C1874; C1887; C1894; C9600; J2405; Q9967

== ENCOUNTER 2017-10-04 07:44 | Inpatient (IN) | payer MEDICARE, BC, SELFPAY ==
[2017-10-04] VITALS (28 sets, daily range): BP systolic 92–193; BP diastolic 57–114; PULSE 74–169; RESP 16–24; TEMP 36–37.2; O2SAT 92–100; BMI 26.5; BMI 26.4
--- NOTE | 2017-10-04 07:54 | RAD_ITS ---
STUDY: X-RAY CHEST REASON FOR EXAM: Female, 77 years old. Acute chest pain this a.m. Heart catheterization with cardiac stent placement. TECHNIQUE: Single AP upright portable chest. COMPARISON: 05/17/2017 through 10/05/2014 chest studies FINDINGS: Left pacemaker/defibrillator battery projects over the left lateral hemithorax and shows a single contiguous intraventricularly which appears well-positioned. EKG wires overlie left thorax. The lungs show suboptimal inspiration with mild right greater than left elevated diaphragm but no finding of active focal pulmonary consolidation with air bronchograms, large pleural effusion or abnormally dilated pulmonary vascularity is seen of the aerated lung zones visualized. There is no demonstrated pleural abnormality. No large gross pneumothorax suggested. Moderate left greater right biapical hyperexpansion/hyperlucency changes appear stable consistent with COPD. Heart appears enlarged but heart size appears mildly accentuated by suboptimal inspiration. Stable appearing mediastinum and wili. Stable visualized pulmonary arteries. Stable moderately calcified visualized aortic knob. Stable severe degenerative visualized thoracic spine with mild S-shaped thoracic scoliosis. No acute osseous abnormality identified. There is no demonstrated abnormality of the visualized soft tissue structures of the upper abdomen. No subdiaphragmatic free air seen grossly. RAD/Chest 1 View (Portable) IMPRESSION: Mild suboptimal inspiration without active pulmonary disease identified. Cardiomegaly which appears stable and may be accentuated by suboptimal inspiration. No change position of pacemaker/defibrillator with single continuous appearing intraventricular lead. Stable appearing COPD. Electronically Signed: Gm Ward, at 8:51 EDT Tel , Service support ,
[2017-10-04] MEDS: Aspirin 81 MG TAB.CHEW 324 MG PO (07:58)
[2017-10-04] MEDS: morphine 8 MG/ML Syringe IV (08:05)
[2017-10-04] MEDS: Ondansetron 4 MG/2 ML Vial IV (08:06)
[2017-10-04] MEDS: Isosorbide Mononitrate 60 MG Tablet PO (08:13)
[2017-10-04] MEDS: LORazepam 2 MG/ML Syringe 1 MG IV ×3 (08:14→12:29)
[2017-10-04 08:18] LABS: Absolute Lymphocyte Count 1.58 X10^3/ul (0.83-4.51); Absolute Neutrophil Count 9.6 X10^3/uL (2.0-7.7); Basophil# 0.02 X10^3/uL; Basophil% 0.2 % (0-1); Eosinophil# 0.23 X10^3/uL; Eosinophils% 1.8 % (0-5); Hemoglobin 14.3 g/dl (12.0-15.0); Lymphocyte # 1.58 X10^3/ul (4.0); Lymphocyte % 12.5 % (19-41); Mean Corp Hgb Conc 32.5 g/gl (32-36); Mean Corpuscular Hgb 26.1 pg (27.0-32.0); Mean Corpuscular Volume 80.4 fL (81-99); Mean Platelet Vol. 9.7 fl (6.2-12.0); Monocyte# 1.12 X10^3/uL; Monocyte% 8.9 % (0-10); Neutrophil # 9.64 X10^3/uL (2.7-7.7); Neutrophil % 76.3 % (47-70); Platelet Count 216 K/mm3 (150-450); RBC Distribution Width CV 16.3 % (11.6-14.6); RBC Distribution Width SD 47.8 fl (35.1-43.9); Red Blood Count 5.47 M/mm3 (4.2-5.4); White Blood Count 12.6 K/mm3 (4.4-11.0)
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
[2017-10-04 08:25] LABS: POSITIVE COUNT NO; POSITIVE DIFFERENTIAL NO; POSITIVE MORPHOLOGY NO
[2017-10-04 08:26] LABS: Anion Gap 7 (5-15); BUN 7 mg/dL (7-18); BUN/Creat Ratio 10.9 RATIO (10-20); Calcium,Total 8.6 mg/dL (8.5-10.1); Chloride 97 mmol/L (98-107); Creatinine, Serum 0.64 mg/dL (0.55-1.02); EST Glomerular Filtration Rate 95 mL/min (>60); Est Glom Filt Rate - Afr Amer 115 mL/min (>60); Estimated Creatinine Clearance 36.67 ml/min; Glucose 110 mg/dL (74-106); Potassium 3.3 mmol/L (3.5-5.1); Sodium Level 133 mmol/L (136-145)
--- NOTE | 2017-10-04 08:27 | ED.RN ---
TROP 2.[address] LAB[address] DR SLADEED AWARE
--- NOTE | 2017-10-04 11:00 | ED.RN ---
trop 2.54 called from the lab. dr villalobosed aware
--- NOTE | 2017-10-04 11:29 | ED.DEP ---
ED Disposition - Plan for ED Patient: Chief Complaint: Chest Pain Instructions: ED Chest Pain Atypical Unkn Cause Referrals: Enrike Dobbins Chi, MD [Primary Care Provider] -
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
[2017-10-04] MEDS: Morphine 4 MG/ML Syringe IV (12:08)
--- NOTE | 2017-10-04 12:12 | ED.RN ---
magnet placed on patient at this time
[2017-10-04] MEDS: Metoprolol Tartrate 5 MG/5 ML Vial IV (12:13)
--- NOTE | 2017-10-04 12:16 | HP.PCM_ITS ---
Problem List (1) Chest pain Status: Acute History of Present Illness Date of Admission: 10/04/17 Chief Complaint: chest pain The patient is a 77 year old F with history of CAD status post stent which was placed 1 day ago, heart failure with reduced ejection fraction status post ICD placement, hypertension hyperlipidemia. She was admitted by the ED on 10/04/2017 with a complaint of chest pain. Chest pain was pressure-like, radiated up to her neck. She therefore came into the ED where she was found to have elevated blood pressure of 190/80. Troponin done in the ED was elevated at 2.9 and a second troponin had trended down to about 2.5. EKG done showed chronic V1 and V2 changes. Case was discussed with Dr. Pandey will place the stents the day before he thought that they may have been to a small vessel being occluded in the stenting procedure. Blood pressure came down to 03/27/2017 patient felt better and so she was going to be discharged. She has been discharged to go back home, she started complaining that her cardiac defibrillator had fired and so she was brought back to her bed and placed on a court monitor. She was found to be in A. fib with heart rate been in the 180s she was given a dose of Lopressor 5 mg which did not help. She was given a bolus of amiodarone and had regained about 120s. However patient is a 89 back into A. fib with RVR and was started on amiodarone drip. Case was discussed by ED doctor with policy intern who recommended that patient be cardioverted since she had been in sinus rhythm and had just gone into A. fib. An attempt at cardioversion was made after she was medicated with IV Ativan and she was cardioverted with 300 J which had no effect. She still remained in A. fib with RVR with heart rate being between the 150s-130s. Patient was seen and reviewed during cardioversion. Patient was drowsy due to Ativan that had been administered and only could tell me that she had had chest pain but could not really give me any further history. She documented above was as taken from the ED note and as tolerated by nurse was present when she was being taken. [] Past Medical History Past Medical History (Chronic Problems): Chronic Problems (Last Updated 10/03/17 @ 08:49 by JELANI Vail) Hypertension (Chronic) Atherosclerotic heart disease of [place] coronary artery without angina pectoris (Chronic) Successful PTCA/OLIVER of the of proximal RCA with a 3.5 x 38 Promus stent, post dilated throughout with a 4.0 x 12 NC balloon at 14 yulia; 75%-->0%, no dissection 10/02/2017 Presence of cardiac defibrillator (Chronic ~2005) gen change 11/02/11 Polycythemia (Chronic) Hx of heart artery stent (Chronic) Hypertension (Chronic) Dyslipidemia (Chronic) Medical History: Medical History (Last Updated 10/03/17 @ 08:49 by JELANI Vail) Abnormal stress test (Acute) R94.39 Hypertension (Chronic) I10 Atherosclerotic heart disease of [place] coronary artery without angina pectoris (Chronic) I25.10 Successful PTCA/OLIVER of the of proximal RCA with a 3.5 x 38 Promus stent, post dilated throughout with a 4.0 x 12 NC balloon at 14 yulia; 75%-->0%, no dissection 10/02/2017 Ischemic cardiomyopathy (Acute) I25.5 Ventricular tachycardia (Acute) I47.2 Presence of cardiac defibrillator (Chronic) Onset Date: ~2005 Z95.810 gen change 11/02/11 Long-term use of high-risk medication (Acute) Z79.899 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: ~1997 I25.2 Hyperlipidemia (Acute) E78.5 Arthritis M19.90 Bladder cancer C67.9 Bladder tumor D49.4 Erythrocytosis D75.1 GI bleed K92.2 Hypocalcemia E83.51 Hypokalemia E87.6 Polycythemia D75.1 Tobacco abuse Z72.0 A-fib I48.91 Arthritis M19.90 KNEES Back problem M53.9 Bladder cancer C67.9 Bladder tumor D49.4 Heart disease I51.9 Past heart attack Onset Date: ~1997 I25.2 Polycythemia vera D45 Allergies doxazosin [From Cardura] Allergy (Severe, Verified 10/04/17 07:49) Itching Influenza Virus Vaccines Adverse Reaction (Verified 10/04/17 07:49) Unknown Home Medications: Ambulatory Orders Medication Instructions Recorded Alprazolam [Xanax] 0.25 tab PO DAILY 05/24/16 Aspirin [Aspirin EC] 81 mg PO DAILY 05/24/16 Multivitamins,Therapeutic 1 tab PO DAILY 05/24/16 [Multivitamin] Nitroglycerin 0.4 mg SL UD PRN MDD Q5min prn 05/24/16 atorvastatin 40 mg tablet 40 mg PO QDAY 03/27/17 lisinopril 10 mg tablet 20 mg PO BID tab 03/27/17 metoprolol succinate ER 50 mg 50 mg PO BID #180 tab 03/28/17 tablet,extended release 24 hr hydrochlorothiazide 25 mg tablet 25 mg PO DAILY #90 tab 06/18/17 isosorbide mononitrate ER 60 mg 30 mg PO QAM #30 tab 09/03/17 tablet,extended release 24 hr clopidogrel 75 mg tablet 75 mg PO QDAY #30 tab 09/20/17 Lorazepam [Ativan] 1 mg PO Q6H PRN PRN tablet 10/03/17 Surgical History: Surgical History (Last Reviewed 09/03/17 @ 14:39 by Angelica Chan) History of back surgery Z98.890 History of cataract extraction Z98.49 History of cholecystectomy Z98.890, Z90.49 History of mandibular surgery Z98.890 H/O cataract extraction Z98.49 History of back surgery Z98.890 History of mandibular surgery Z98.890 Hx of cholecystectomy Z98.890, Z90.49 ICD SURGERY 2005 AND 2011 Surgical History: cholecystectomy, coronary bypass surgery, pacemaker implantation - with defibrillator x 2. resection of bladder tumor., tonsillectomy, - - jaw surgeries x 2. Cardiac stent placement. Psychiatric History: No pertinent psych hx Smoking Status: Current every day smoker - *Family History Maternal Family History: Family History (Last Reviewed 09/03/17 @ 14:39 by Angelica Chan) Mother Heart disease Myocardial infarction Brother Cancer CAD (coronary artery disease) Brother CAD (coronary artery disease) Brother CAD (coronary artery disease) History Items: No pertinent history Review of Systems Cardiovascular: Reports: Chest Pain, Chest Pressure Unable to obtain accurate/complete ROS d/t: unable to do a complete ROS as patient is quite drowsy from ativan given. VTE Information - Inpt Only VTE Present on Admission: No VTE Mechan Device Prophylaxis: SCD's VTE Pharm Prophylaxis ordered?: No Patient Problems: Active and Suspected Problems (Last Updated 08/08/18 @ 08:49 by JELANI Vail) Chest pain (Acute) - Physical Exam General: - - drowsy HEENT: Atraumatic, PERRLA, EOMI, Normocephalic Oral: Moist Mucosa Neck: Supple, No JVD, Negative Carotid Bruits Lungs: Clear to auscultation, Normal air movement, No rhonchi, No wheeze, No rales Cardiovascular: Normal S1, Normal S2, Tachycardic - irregularly irregular. Abdomen: Bowel Sounds Present, Soft, Non Tender, Non-Distended, No Hepato- splenomegaly Extremities: No clubbing, No cyanosis, No edema, Capillary Refill Less than 3 Seconds Skin: No rashes, No breakdown, - - ecchymotic patches over skin Musculoskeletal: No Tenderness to Palpation of Joints or Extremities Lymphatic: No Cervical, Supraclavicular, or Inguinal Adenopathy Neurological: Cranial nerves II-XII grossly intact, Neuro grossly intact, - - drowsy Psych/Mental Status: - - drowsy and lethargic Vital Signs Temp Pulse Resp BP Pulse Ox 98.4 F 169 H 20 H 121/78 H 100 10/04/17 07:45 10/04/17 12:09 10/04/17 12:09 10/04/17 12:09 10/04/17 12:09 Oxygen Flow Rate (L/min) 2 Oxygen Delivery Method Room Air Weight: 145 lb Body Mass Index (BMI) 26.5 Laboratory Tests Past 24 Hrs 10/04/17 10/04/17 10/04/17 07:50 07:50 10:30 WBC 12.6 H RBC 5.47 H Hgb 14.3 Hct 44.0 MCV 80.4 L MCH 26.1 L MCHC 32.5 RDW 16.3 H RDW Differential 47.8 H Plt Count 216 MPV 9.7 Immature Gran % (Auto) 0.300 Neut % (Auto) 76.3 H Lymph % (Auto) 12.5 L [place] % (Auto) 8.9 Eos % (Auto) 1.8 Baso % (Auto) 0.2 Absolute Neuts (auto) 9.6 H Absolute Lymphs (auto) 1.58 Total Counted Not Reportable Sodium 133 L Potassium 3.3 L Chloride 97 L Carbon Dioxide 29.0 Anion Gap 7 BUN 7 Creatinine 0.64 Estim Creat Clear Calc 36.67 Est GFR (MDRD) Af Amer 115 Est GFR (MDRD) Non-Af 95 BUN/Creatinine Ratio 10.9 Glucose 110 H Calcium 8.6 Troponin I 2.950 H* 2.540 H* Diagnostic Data Chest X-Ray 10/04/17 07:54 IMPRESSION: Mild suboptimal inspiration without active pulmonary disease identified. Cardiomegaly which appears stable and may be accentuated by suboptimal inspiration. No change position of pacemaker/defibrillator with single continuous appearing intraventricular lead. Stable appearing COPD. 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 Afib with RVR * has a history of AFib, which was rate controlled. * found to be in Afib with RVR today after presenting with a complaint of chest pain * HR didnt improve with administration of IV lopressor and amiodarone bolus * ICD started firing incessantly today * currently on IV amiodarone drip; didnt cardiovert with shocking with 300J * echo(): Mildly dilated left ventricle with moderate segmental systolic dysfunction and EF of 35%. He continues to left lateral basal wall and hypokinesia of the posterior basal, mid lateral and lateral apical julian. LA mildly enlarged; RVSP is 25mmHg' ICD or pacer leads in right atrium. * admit to ICU * continue iV amiodarone drip; start heparin drip. * urgent cardiology consult placed * will optimise magnesium and potassium levels * will check BNP * 2. CAD s/p stent * had stent placed in RCA 1 day ago * on aspirin, plavix, statin and beta maritza * presented with chest pain; troponin was elevated at 2.9 on admission; EKG showed some T wave inversions in leads V1-V2 * ED physician discussed with cardiology; they think it may be due to difficulty with a small vessel during stenting yesterday * troponin trended down to 2.4; will continue monitoring * 3. HFrEF * echo(04/15) as mentioned above * not on any diuretic, per EMR * will check BNP 4. HTN * fairly controlled * on HCTZ and lisinopril * 5. HYpokalemia * K is 3.3; will replace and monitor * will check magnesium levels to and monitor as needed. * DVT prophylaxis: start heparin drip GI prophylaxis: PPI Code status: full code This note was generated with [employer] dictation software. It may contain incorrect words, spelling, and punctuation that were not noted in checking the note before signing. Code Visit Inpatient E&M: 26587 Init Hosp L3
--- NOTE | 2017-10-04 14:33 | CASEMGMT ---
RN CM Assessment. See Link for details. -Pt's niece states pt is independent @ home, cares for self. Friend was staying with her after dc on Sun, will be able to stay with her again on this dc. Bisi PHILLIPSN RN ACM
[2017-10-04 15:34] LABS: International Normalized Ratio 1.2; Prothrombin Time (Protime)PT. 15.6 SECONDS (11.7-14.9)
[2017-10-04 15:35] LABS: Partial Thromboplast Time 28.6 Seconds (24.1-36.2)
[2017-10-04 16:15] LABS: M R Staph aureus DNA By PCR Negative (Negative); Probe Check PASS; Specimen Processing Control PASS
--- NOTE | 2017-10-04 16:35 | CON.PCM_ITS ---
Problem List (1) ICD (implantable cardioverter-defibrillator) discharge Status: Acute (2) Atrial fibrillation Status: Acute Qualifiers: Atrial fibrillation type: paroxysmal Qualified Code(s): I48.0 - Paroxysmal atrial fibrillation (3) Ventricular tachycardia Status: Chronic (4) Atherosclerotic heart disease of [place] coronary artery without angina pectoris Status: Chronic Qualifiers: [place] vs. transplanted heart: [place] heart Qualified Code(s): I25.10 - Atherosclerotic heart disease of [place] coronary artery without angina pectoris Comment: Successful PTCA/OLIVER of the of proximal RCA with a 3.5 x 38 Promus stent , post dilated throughout with a 4.0 x 12 NC balloon at 14 yulia; 75%-->0%, no dissection 10/02/2017 (5) Hx of heart artery stent Status: Chronic (6) Ischemic cardiomyopathy Status: Chronic (7) Dyslipidemia Status: Chronic (8) Hypertension Status: Chronic Qualifiers: Hypertension type: essential hypertension Qualified Code(s): I10 - Essential (primary) hypertension Reason for Consult Date of Consultation: 10/04/17 History of Present Illness: The patient is a 77 year old white female with a history of underlying CAD, status post PTCA/stent-remote/recent, ischemic mediated cardiomyopathy, ventricular tachycardia, status post ICD placement, superimposed on hyperlipidemia and hypertension, who is now referred for ICD discharge thought secondary to atrial fibrillation with rapid ventricular response. She recently underwent evaluation and care of her cardiovascular status leading to a recent RCA PTCA/stent performed by August Pandey MD on 10/02/2017. According to the ICU staff following that event, during her recuperative time, the patient did have cardiac catheterization site related hemorrhage/hematoma requiring prolonged manual compression. She was monitored overnight and the following day she was reported as being symptomatically and hemodynamically stable and was released home for continued outpatient follow-up. She presented back to the emergency department earlier this day with concerns of hypertension and chest discomfort. She was evaluated by the emergency department staff. They discussed the case with Dr. Pandey. It appeared the concern at the time was to treat her hypertension and continue with outpatient follow-up. She did have abnormal troponin I levels at the time which were apparently attributed to her PCI procedure and did not require additional evaluation or care. It appeared the patient was being prepared for release from the emergency department. She then experienced ICD discharge. According to the emergency department staff she had several episodes of ICD discharge. She was reassessed and there were concerns that her neck rhythm had changed and she had gone into atrial fibrillation with rapid ventricular response which may have arrived at the detector range for her ICD leading to ICD discharge. She was then treated with additional medical therapy. This included IV amiodarone. She did have slowing of her heart rate. She then underwent synchronized biphasic DC cardioversion by the emergency department staff. This was reported as 300 J ?1. Initially it was thought this was unsuccessful however on subsequent evaluation the patient was noted to have sinus rhythm with episodes of paroxysmal atrial fibrillation. She was then placed in the ICU for further evaluation and care. She was noted to have chest soreness from her ICD discharge and synchronized biphasic DC cardioversion. There was no acute respiratory related events. There was no report of any near-syncope or syncope. She had continued tenderness over her right inguinal area which demonstrated areas of ecchymoses. It was also noted during her evaluation that her potassium level was low. She was receiving potassium supplements in addition to the IV amiodarone. Her ICD was subsequently interrogated. Based upon the preliminary interrogation it did appear the patient had underlying atrial dysrhythmias with atrial fibrillation and/or atrial flutter with rapid ventricular response in the detect rate of her ICD leading to ICD discharge. The final interrogation report is pending. [] Past Medical History Allergies/Adverse Reactions: Allergies doxazosin [From Cardura] Allergy (Severe, Verified 10/04/17 07:49) Itching Influenza Virus Vaccines Adverse Reaction (Verified 10/04/17 07:49) Unknown Home Medications: Ambulatory Orders Medication Instructions Recorded Alprazolam [Xanax] 0.25 tab PO DAILY 05/24/16 Aspirin [Aspirin EC] 81 mg PO DAILY 05/24/16 Multivitamins,Therapeutic 1 tab PO DAILY 05/24/16 [Multivitamin] Nitroglycerin 0.4 mg SL UD PRN MDD Q5min prn 05/24/16 atorvastatin 40 mg tablet 40 mg PO QDAY 03/27/17 lisinopril 10 mg tablet 20 mg PO BID tab 03/27/17 metoprolol succinate ER 50 mg 50 mg PO BID #180 tab 03/28/17 tablet,extended release 24 hr hydrochlorothiazide 25 mg tablet 25 mg PO DAILY #90 tab 06/18/17 isosorbide mononitrate ER 60 mg 30 mg PO QAM #30 tab 09/03/17 tablet,extended release 24 hr clopidogrel 75 mg tablet 75 mg PO QDAY #30 tab 09/20/17 Lorazepam [Ativan] 1 mg PO Q6H PRN PRN tablet 10/03/17 Past Medical History (Chronic Problems): Chronic Problems (Last Updated 10/03/17 @ 08:49 by JELANI Vail) Hypertension (Chronic) Atherosclerotic heart disease of [place] coronary artery without angina pectoris (Chronic) Successful PTCA/OLIVER of the of proximal RCA with a 3.5 x 38 Promus stent, post dilated throughout with a 4.0 x 12 NC balloon at 14 yulia; 75%-->0%, no dissection 10/02/2017 Ischemic cardiomyopathy (Chronic) Ventricular tachycardia (Chronic) Presence of cardiac defibrillator (Chronic ~2005) gen change 11/02/11 Polycythemia (Chronic) Hx of heart artery stent (Chronic) Hypertension (Chronic) Dyslipidemia (Chronic) Surgical History: cholecystectomy, coronary bypass surgery, pacemaker implantation - with defibrillator x 2. resection of bladder tumor., tonsillectomy, - - jaw surgeries x 2. Cardiac stent placement. Psychiatric History: No pertinent psych hx - *Family History Maternal Family History: Family History (Last Reviewed 09/03/17 @ 14:39 by Angelica Chan) Mother Heart disease Myocardial infarction Brother Cancer CAD (coronary artery disease) Brother CAD (coronary artery disease) Brother CAD (coronary artery disease) History Items: No pertinent history Smoking Status: Current every day smoker Alcohol: None Drugs: None Review of Systems - Review of Systems General: Denies: Fever, Night Sweats, Fatigue Cardiovascular: Reports: Chest Discomfort, Palpitations. Denies: Shortness of Breath, Orthopnea, PND, Peripheral Edema, Lightheadedness, Dizziness, Near Syncope, Syncope Respiratory: Denies: Cough, Sputum Production, Hemoptysis Gastrointestinal: Denies: Hematemesis, Hematochezia, Melena Genitourinary: Denies: Dysuria, Hematuria Muscoloskeletal: Reports: - - Right inguinal area tenderness to palpation Objective: Vital Signs Temp Pulse Resp BP Pulse Ox 97.8 F 91 21 H 96/70 96 10/04/17 13:25 10/04/17 15:29 10/04/17 15:00 10/04/17 15:00 10/04/17 15:00 Oxygen Flow Rate (L/min) 15 Oxygen Delivery Method Room Air Weight: 143 lb 11.862 oz Body Mass Index (BMI) 26.4 General: Awake, Alert, Oriented x 3 Neck: No JVD Lungs: Clear to auscultation Cardiovascular: Regular Rhythm, Premature Ectopic Beats, Normal S1, Normal S2 Abdomen: Bowel Sounds Present, Soft, Non Tender Extremities: - - Right inguinal area ecchymoses 10/04/17 15:15: PT 15.6 H, INR 1.2, APTT 28.6 Rhythm: Sinus rhythm with episodes of paroxysmal atrial fibrillation EKG: Atrial fibrillation with rapid ventricular response with associated nonspecific ST and T-wave abnormality ECHO: 04/12/2017: Left ventricle with left ventricular regional wall motion abnormalities with an overall LVEF of 35%; mild left atrial enlargement; trivial MR/TR; mild focal aortic valve calcification; estimated RV systolic pressure of 25 mmHg; decreased diastolic compliance; ICD leads in the right atrium and right ventricle Stress Test: 04/12/2017: Pharmacologic stress nuclear imaging study: Findings compatible with an area of previous myocardial injury/infarction involving the basal towards distal lateral segments with post stress myocardial perfusion changes appearing compatible with mild roberto-infarct related myocardial ischemia with a gated LVEF of 34% Cardiac Cath: 04/18/2017: Left ventricle: Regional wall motion abnormalities with hypokinesis involving the inferior segments with an estimated LVEF of 45%; left main coronary artery with mild luminal irregularities; LAD with proximal mild calcification with 25% stenosis, mid 25% stenosis, and diagonal branch #1 with ostial 25% stenosis; LCx proximally stented and occluded, OM1 fills late faintly and partially from left to left collateral flow; RCA with ostial mild calcification and mid right hazy 75% stenosis; collateral flow from left to left and right to left PCI: 10/02/2017: RCA PTCA/OLIVER CXR: Preliminary evaluation: Post procedure related changes: No acute cardiopulmonary disease process: Please see official report Assessment/Plan 1. ICD discharge The patient did have ICD discharge (multiple). This appears to have been secondary to her atrial dysrhythmia/possible atrial flutter with rapid ventricular response. At the present time the patient is in the ICU. She is being monitored. She is being treated with respect to her hypokalemia as well as her cardiac dysrhythmia with a combination of electrolyte supplements and IV amiodarone. She has demonstrated return to sinus rhythm with paroxysmal atrial dysrhythmias. At the present time she will continue to be monitored. She will continue her medical management. Her ICD has been interrogated. The final report is pending. 2. Atrial fibrillation with rapid ventricular response The patient did demonstrate what appears to be atrial fibrillation and/or atrial fibrillation/flutter with rapid ventricular response. This appears to have triggered her ICD. This may be secondary to a combination of etiologies including her age, blood pressure, cardiovascular concerns, electrolyte concerns, etc. At the present time she is being monitored. Her electrolytes are being supplemented. Her cardiac rhythm is being evaluated and treated as noted above. 3. Ventricular tachycardia She does have a history of underlying ventricular tachycardia. This is thought related to her ischemic mediated cardiomyopathy. She does have an ICD in place. At the present time she will continue medical management. She is undergone revascularization therapy. Her ICD has been interrogated. It appears to been functioning appropriately. 4. CAD status post PCI remote and recent She does have a history of revascularization therapy as noted above. Again she will continue her current medical management and follow-up. She will be monitored for any other obvious acute changes status post her recent events. 5. Ischemic mediated cardiomyopathy She will be monitored for any obvious evidence of a change in her volume status such as acute CHF or pulmonary edema. She has undergone noninvasive and invasive evaluation as revascularization therapy. She will continue medical management. 6. Hyperlipidemia The patient will continue risk factor evaluation care as deemed appropriate. 7. Hypertension The patient has had issues with her blood pressure being elevated in the past. Her medications have been adjusted to try and compensate for this. Her blood pressures will be followed and her medications can be adjusted again as needed. Comment: The patient's case was discussed and reviewed with the [facility] emergency department staff. This note was generated with [employer] dictation software. It may contain incorrect words, spelling, and punctuation that were not noted in checking the note before signing.
[2017-10-04] MEDS: Clopidogrel Bisulfate 75 MG Tablet PO (17:54)
[2017-10-04] MEDS: Atorvastatin Calcium 40 MG Tablet PO (21:29)
[2017-10-04] MEDS: Metoprolol(XL)Succ 50 MG Tablet PO (21:29)
[2017-10-04] MEDS: Lisinopril 20 MG Tablet PO (21:30)
[2017-10-05] VITALS (33 sets, daily range): BP systolic 116–158; BP diastolic 67–125; PULSE 62–137; RESP 14–27; TEMP 36.2–37.4; O2SAT 94–100
[2017-10-05 04:34] LABS: Absolute Lymphocyte Count 1.07 X10^3/ul (0.83-4.51); Absolute Neutrophil Count 8.9 X10^3/uL (2.0-7.7); Basophil# 0.02 X10^3/uL; Basophil% 0.2 % (0-1); Eosinophil# 0.05 X10^3/uL; Eosinophils% 0.4 % (0-5); Hematocrit 39.3 % (37-47); Hemoglobin 12.8 g/dl (12.0-15.0); Lymphocyte # 1.07 X10^3/ul (4.0); Lymphocyte % 9.4 % (19-41); Mean Corp Hgb Conc 32.6 g/gl (32-36); Mean Corpuscular Hgb 26.1 pg (27.0-32.0); Mean Corpuscular Volume 80.2 fL (81-99); Mean Platelet Vol. 9.5 fl (6.2-12.0); Monocyte# 1.37 X10^3/uL; Neutrophil # 8.88 X10^3/uL (2.7-7.7); Neutrophil % 77.7 % (47-70); Platelet Count 168 K/mm3 (150-450); RBC Distribution Width CV 16.5 % (11.6-14.6); RBC Distribution Width SD 48.5 fl (35.1-43.9); White Blood Count 11.4 K/mm3 (4.4-11.0)
[2017-10-05 04:35] LABS: POSITIVE COUNT NO; POSITIVE DIFFERENTIAL NO; POSITIVE MORPHOLOGY NO
[2017-10-05 04:46] LABS: Anion Gap 10 (5-15); BUN 7 mg/dL (7-18); BUN/Creat Ratio 11.9 RATIO (10-20); Calcium,Total 8.2 mg/dL (8.5-10.1); Chloride 98 mmol/L (98-107); Creatinine, Serum 0.59 mg/dL (0.55-1.02); EST Glomerular Filtration Rate 105 mL/min (>60); Est Glom Filt Rate - Afr Amer 128 mL/min (>60); Estimated Creatinine Clearance 34.99 ml/min; Glucose 118 mg/dL (74-106); Magnesium 1.8 mg/dL (1.6-2.6); Potassium 3.9 mmol/L (3.5-5.1); Sodium Level 133 mmol/L (136-145)
[2017-10-05] MEDS: Amiodarone 200 MG Tablet 400 MG PO ×2 (07:58→22:11)
--- NOTE | 2017-10-05 08:58 | PCM.PN.CARD ---
Subjectve: Patient doing quite well this morning. Blood pressure much better controlled. Remains in sinus rhythm overnight. IV amiodarone drip infusing. No chest pain or angina. Telemetry showed normal sinus rhythm. Her right groin is clean/dry/intact, no thrills or bruit. Objective: Vital Signs Temp Pulse Resp BP Pulse Ox 97.2 F L 65 20 H 133/76 H 100 10/05/17 08:00 10/05/17 08:00 10/05/17 08:00 10/05/17 08:00 10/05/17 08:00 Oxygen Flow Rate (L/min) 15 Oxygen Delivery Method Room Air Weight: 147 lb 7.828 oz Body Mass Index (BMI) 26.4 Intake and Output for Last 24 Hours 10/03/17 10/04/17 10/05/17 23:59 23:59 23:59 Intake Total 1471 / 1471 103 / 103 Output Total 251 / 251 275 / 275 Balance 1220 / 1220 -172 / -172 General: Awake, Alert, Oriented x 3 HEENT: PERRL, EOMI, Sclera Non Icteric Neck: Supple, Good ROM, No Lymph Node Enlargement Lungs: Clear to auscultation Cardiovascular: Regular Rhythm, Normal S1, Normal S2, No Murmurs, No Rubs, No Gallops Vascular: No Carotid Bruits, Normal Femoral Pulses, Normal Radial Pulses, Normal Dorsalis Pedal Pulse, Normal Posterior Tibial Pulses Abdomen: Bowel Sounds Present, Soft, Non Tender, No HSM, No Organomegaly Extremities: No Cyanosis, No Clubbing, No edema Neurological: No Focal Motor or Sensory Deficit 10/04/17 15:15: PT 15.6 H, INR 1.2, APTT 28.6 10/05/17 04:00: Sodium 133 L, Potassium 3.9, Chloride 98, Carbon Dioxide 25.0, Anion Gap 10, BUN 7, Creatinine 0.59, Est GFR (MDRD) Af Amer 128, Est GFR (MDRD) Non-Af 105, BUN/Creatinine Ratio 11.9, Glucose 118 H, Calcium 8.2 L, Magnesium 1.8 10/05/17 04:00: WBC 11.4 H, RBC 4.90, Hgb 12.8, Hct 39.3, MCV 80.2 L, MCH 26.1 L, MCHC 32.6, RDW 16.5 H, RDW Differential 48.5 H, Plt Count 168, MPV 9.5, Immature Gran % (Auto) 0.300, Neut % (Auto) 77.7 H, Lymph % (Auto) 9.4 L, [place] % (Auto) 12.0 H, Eos % (Auto) 0.4, Baso % (Auto) 0.2, Absolute Neuts (auto) 8.9 H, Total Counted Not Reportable Rhythm: EKG: ECHO: Stress Test: Cardiac Cath: PCI: CT Surgery: Holter monitor: EPS: PPM: CXR: Chest CT Scan: Medical Necessity - Tobacco Use Smoking Status: Current every day smoker Assessment/Plan 1. Severe hypertension: The patient presented yesterday with hypertensive crisis and after adjusting her medications getting her blood pressure down she developed atrial fibrillation with RVR which apparently triggered her defibrillator to go off. Patient was given IV amiodarone and converted from atrial fibrillation to sinus rhythm which has remained durable. This is the second time her tib-fib later is gone off for both atrial and ventricular arrhythmias so I recommend that she continue lifelong amiodarone therapy. We will switch her from IV amiodarone to amiodarone 400 mg p.o. twice daily for 3 days followed by 200 mg a day. We will obtain an EKG this morning to track her QT corrected interval. In addition we will adjust the patient's Imdur to 30 mg p.o. twice daily in addition to her other antihypertensive medications. Assuming her blood pressure remained stable, she will be discharged home tomorrow. 2. Atrial fibrillation: Given the patient's severe LV dysfunction and paroxysmal atrial fibrillation which can trigger her detection zone on her defibrillator and cause any ICD discharge, I recommend lifelong amiodarone therapy. Continue Toprol as well. Would not recommend in a coagulation at this time. 3. Coronary artery disease: The patient is status post angioplasty and stenting to her RCA recently, would recommend continuing baby aspirin Plavix. She will be set up for cardiac rehab should she be a candidate in 2 weeks time. 4. Patient may be downgraded to PCU status, and will follow-up with Dr. Weber going forward. Code Visit Inpatient E&M: [id number] Subs Hosp L2
--- NOTE | 2017-10-05 09:01 | PN.CARD_ITS ---
Subjectve: Patient doing quite well this morning. Blood pressure much better controlled. Remains in sinus rhythm overnight. IV amiodarone drip infusing. No chest pain or angina. Telemetry showed normal sinus rhythm. Her right groin is clean/dry/ intact, no thrills or bruit. Objective: Vital Signs Temp Pulse Resp BP Pulse Ox 97.2 F L 65 20 H 133/76 H 100 10/05/17 08:00 10/05/17 08:00 10/05/17 08:00 10/05/17 08:00 10/05/17 08:00 Oxygen Flow Rate (L/min) 15 Oxygen Delivery Method Room Air Weight: 147 lb 7.828 oz Body Mass Index (BMI) 26.4 Intake and Output for Last 24 Hours 10/03/17 10/04/17 10/05/17 23:59 23:59 23:59 Intake Total 1471 / 1471 103 / 103 Output Total 251 / 251 275 / 275 Balance 1220 / 1220 -172 / -172 General: Awake, Alert, Oriented x 3 HEENT: PERRL, EOMI, Sclera Non Icteric Neck: Supple, Good ROM, No Lymph Node Enlargement Lungs: Clear to auscultation Cardiovascular: Regular Rhythm, Normal S1, Normal S2, No Murmurs, No Rubs, No Gallops Vascular: No Carotid Bruits, Normal Femoral Pulses, Normal Radial Pulses, Normal Dorsalis Pedal Pulse, Normal Posterior Tibial Pulses Abdomen: Bowel Sounds Present, Soft, Non Tender, No HSM, No Organomegaly Extremities: No Cyanosis, No Clubbing, No edema Neurological: No Focal Motor or Sensory Deficit 10/04/17 15:15: PT 15.6 H, INR 1.2, APTT 28.6 10/05/17 04:00: Sodium 133 L, Potassium 3.9, Chloride 98, Carbon Dioxide 25.0, Anion Gap 10, BUN 7, Creatinine 0.59, Est GFR (MDRD) Af Amer 128, Est GFR (MDRD ) Non-Af 105, BUN/Creatinine Ratio 11.9, Glucose 118 H, Calcium 8.2 L, Magnesium 1.8 10/05/17 04:00: WBC 11.4 H, RBC 4.90, Hgb 12.8, Hct 39.3, MCV 80.2 L, MCH 26.1 L , MCHC 32.6, RDW 16.5 H, RDW Differential 48.5 H, Plt Count 168, MPV 9.5, Immature Gran % (Auto) 0.300, Neut % (Auto) 77.7 H, Lymph % (Auto) 9.4 L, [place] % (Auto) 12.0 H, Eos % (Auto) 0.4, Baso % (Auto) 0.2, Absolute Neuts (auto) 8.9 H, Total Counted Not Reportable Rhythm: EKG: ECHO: Stress Test: Cardiac Cath: PCI: CT Surgery: Holter monitor: EPS: PPM: CXR: Chest CT Scan: Medical Necessity - Tobacco Use Smoking Status: Current every day smoker Assessment/Plan 1. Severe hypertension: The patient presented yesterday with hypertensive crisis and after adjusting her medications getting her blood pressure down she developed atrial fibrillation with RVR which apparently triggered her defibrillator to go off. Patient was given IV amiodarone and converted from atrial fibrillation to sinus rhythm which has remained durable. This is the second time her tib-fib later is gone off for both atrial and ventricular arrhythmias so I recommend that she continue lifelong amiodarone therapy. We will switch her from IV amiodarone to amiodarone 400 mg p.o. twice daily for 3 days followed by 200 mg a day. We will obtain an EKG this morning to track her QT corrected interval. In addition we will adjust the patient's Imdur to 30 mg p.o. twice daily in addition to her other antihypertensive medications. Assuming her blood pressure remained stable, she will be discharged home tomorrow. 2. Atrial fibrillation: Given the patient's severe LV dysfunction and paroxysmal atrial fibrillation which can trigger her detection zone on her defibrillator and cause any ICD discharge, I recommend lifelong amiodarone therapy. Continue Toprol as well. Would not recommend in a coagulation at this time. 3. Coronary artery disease: The patient is status post angioplasty and stenting to her RCA recently, would recommend continuing baby aspirin Plavix. She will be set up for cardiac rehab should she be a candidate in 2 weeks time. 4. Patient may be downgraded to PCU status, and will follow-up with Dr. Weber going forward. Code Visit Inpatient E&M: [id number] Subs Hosp L2
--- NOTE | 2017-10-05 09:03 | PCM.PN.HOSP ---
Patient Problems: Active and Suspected Problems (Last Updated 10/03/17 @ 08:49 by JELANI Vail) Chest pain (Acute) ICD (implantable cardioverter-defibrillator) discharge (Acute) Atrial fibrillation (Acute) Subjective: Patient is a 77-year-old female with a history of CAD status post stent which was placed on 10/03/2017, heart failure with reduced ejection fraction status post ICD placement, hypertension hyperlipidemia. She is admitted by the ED on 10/04/2017 with a complaint of chest pain. Blood pressure was found to be elevated in the ED at 190/18 troponins were also elevated at 2.9 with trend down to 2.5. Patient was scheduled to be discharged if the blood pressure came down with IV Lopressor but she was being discharged ICD fired and so she was brought back in and found to be in A. fib with RVR. Attempts to cardiovert her with stroking was not successful. Patient was admitted and managed for A. fib with RVR. He was started on amiodarone drip. Patient seen and examined. Patient looks much better than yesterday. She remains on amiodarone drip but has converted to sinus rhythm. She has been transitioned to oral amiodarone by cardiology and she is due to stop IV amiodarone ~ 6 hours after starting oral amiodarone. She denies any chest pain, but complains of a cough and says she can bring up the sputum. She denies any shortness of breath, dizziness or palpitations, diarrhea vomiting. Review of systems otherwise negative. Heparin drip was stopped yesterday per cardiology Vitals/I&O's: Vital Signs Temp Pulse Resp BP Pulse Ox 97.2 F L 65 20 H 133/76 H 100 10/05/17 08:00 10/05/17 08:00 10/05/17 08:00 10/05/17 08:00 10/05/17 08:00 Oxygen Flow Rate (L/min) 15 Oxygen Delivery Method Room Air Weight: 147 lb 7.828 oz Body Mass Index (BMI) 26.4 Intake and Output for Last 24 Hours 10/03/17 10/04/17 10/05/17 23:59 23:59 23:59 Intake Total 1471 / 1471 103 / 103 Output Total 251 / 251 275 / 275 Balance 1220 / 1220 -172 / -172 General: Alert, Oriented x3, Cooperative, No apparent distress HEENT: Atraumatic, PERRLA, EOMI, Normocephalic Oral: Moist Mucosa Neck: Supple, No JVD, Negative Carotid Bruits, No Nodes Lungs: Clear to auscultation, Normal air movement, No rhonchi, No wheeze, No rales Cardiovascular: Regular rate, Regular Rhythm, Normal S1, Normal S2, No murmurs Abdomen: Bowel Sounds Present, Soft, Non Tender, Non-Distended, No Hepato-splenomegaly Extremities: No clubbing, No cyanosis, No edema, Capillary Refill Less than 3 Seconds Skin: No rashes, No breakdown Musculoskeletal: No Tenderness to Palpation of Joints or Extremities Lymphatic: No Cervical, Supraclavicular, or Inguinal Adenopathy Neurological: Cranial nerves II-XII grossly intact, Motor Exam 5/5 strength throughout Psych/Mental Status: Normal Affect, Appropriate, Alert and oriented to time, place, person, mood and affect Laboratory Results 10/04/17 14:30: MRSA (PCR) Negative 10/04/17 15:15: PT 15.6 H, INR 1.2, APTT 28.6 10/05/17 04:00: Sodium 133 L, Potassium 3.9, Chloride 98, Carbon Dioxide 25.0, Anion Gap 10, BUN 7, Creatinine 0.59, Estim Creat Clear Calc 34.99, Est GFR (MDRD) Af Amer 128, Est GFR (MDRD) Non-Af 105, BUN/Creatinine Ratio 11.9, Glucose 118 H, Calcium 8.2 L, Magnesium 1.8 10/05/17 04:00: WBC 11.4 H, RBC 4.90, Hgb 12.8, Hct 39.3, MCV 80.2 L, MCH 26.1 L, MCHC 32.6, RDW 16.5 H, RDW Differential 48.5 H, Plt Count 168, MPV 9.5, Immature Gran % (Auto) 0.300, Neut % (Auto) 77.7 H, Lymph % (Auto) 9.4 L, [place] % (Auto) 12.0 H, Eos % (Auto) 0.4, Baso % (Auto) 0.2, Absolute Neuts (auto) 8.9 H, Absolute Lymphs (auto) 1.07, Total Counted Not Reportable Current Medications Alprazolam (Xanax) 0.25 mg PO DAILY [facility] Amiodarone HCl (Cordarone) 400 mg PO BID [facility] Last Admin: 10/05/17 07:58 Dose: 400 mg Aspirin (Ecotrin) 81 mg PO DAILY [facility] Atorvastatin Calcium (Lipitor) 40 mg PO QHS [facility] Last Admin: 10/04/17 21:29 Dose: 40 mg Clopidogrel Bisulfate (Plavix) 75 mg PO DAILY [facility] Last Admin: 10/04/17 17:54 Dose: 75 mg Heparin Sodium (Porcine) (Heparin Na) 0 unit IV UD PRN PRN Reason: Protocol Hydrochlorothiazide (Hctz) 25 mg PO DAILY [facility] Sodium Chloride () 250 mls @ 15 mls/hr IV .[id number] PRN PRN Reason: SALINE FLUSH Amiodarone HCl/Dextrose (Nexterone 360 Mg/200 Ml Bag) 360 mg in 200 mls @ 16.667 mls/hr CONT INF .Q12H [facility] PRN Reason: 0.5 MG/MIN Stop: 10/05/17 15:00 Isosorbide Mononitrate (Imdur) 30 mg PO BID [facility] Lisinopril (Zestril) 20 mg PO BID [facility] Last Admin: 10/04/17 21:30 Dose: 20 mg Lorazepam (Ativan) 1 mg PO Q6H PRN PRN PRN Reason: BACK SPASMS/ANXIETY Magnesium Hydroxide (Milk Of Magnesia) 30 ml PO DAILY PRN PRN PRN Reason: Constipation Metoprolol Succinate (Toprol Xl (Beta Ansley)) 50 mg PO BID [facility] Last Admin: 10/04/17 21:29 Dose: 50 mg Multivitamins (Multivitamin) 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 Afib with RVR Now rate and rhythm controlled. Was admitted and found to be in A. fib with RVR after presenting with chest pain and ICD firing Lasix times in the ED yesterday. Was shocked once in the ED but didnt cardiovert transitioned to oral amiodarone 400mg bid today; amiodarone drip to be stopped ~ 4-6 hours after starting PO amiodarone to be on oral amiodarone 400mg bic x 3 days, then to continue PO amiodarone 200mg daily. Per cardiology, will recommend lifelong amiodarone therapy. echo(): Mildly dilated left ventricle with moderate segmental systolic dysfunction and EF of 35%. He continues to left lateral basal wall and hypokinesia of the posterior basal, mid lateral and lateral apical but did not cardiovert.. LA mildly enlarged; RVSP is 25mmHg' ICD or pacer leads in right atrium. cardiology on board will monitor magnesium and potassium levels no anticoagulation o/a of history of GI blee 2. CAD s/p stent had stent placed in RCA 2 days ago on aspirin, plavix, statin and metoprolol imdur dose increased to 30mg bid. troponin was elevated on admission-2.9; per cardiology, thought it may have been due to difficulty with a small vessel during stenting 2 days ago. troponin trended down to 2.54 will monitor 3. HFrEF echo(04/15) as mentioned above on HCTZ; not on lasix. I'm not sure why BNP was only 51, therefore no evidence of acute exacerbation of heart failure 4. HTN controlled. was admitted with severely elevated blood pressure, [facility] BP being in in the 190s systolic. on HCTZ and lisinopril as well as metoprolol; imur increased to 30mg bid to help with BP control 5. HYpokalemia Potassium was 3.8 on admission and was replaced. Potassium is now 3.9. Magnesium is 1.8. Will monitor. DVT prophylaxis: SCDs; no anticoagulation o/a of history of GI bleed GI prophylaxis: PPI Code status: full code Disposition: for dc home tomorrow This note was generated with [employer] dictation software. It may contain incorrect words, spelling, and punctuation that were not noted in checking the note before signing. Code Visit Inpatient E&M: 83874 Subs Hosp L3
--- NOTE | 2017-10-05 09:11 | PN_ITS ---
Patient Problems: Active and Suspected Problems (Last Updated 10/03/17 @ 08:49 by JELANI Vail) Chest pain (Acute) ICD (implantable cardioverter-defibrillator) discharge (Acute) Atrial fibrillation (Acute) Subjective: Patient is a 77-year-old female with a history of CAD status post stent which was placed on 10/03/2017, heart failure with reduced ejection fraction status post ICD placement, hypertension hyperlipidemia. She is admitted by the ED on with a complaint of chest pain. Blood pressure was found to be elevated in the ED at 190/18 troponins were also elevated at 2.9 with trend down to 2.5. Patient was scheduled to be discharged if the blood pressure came down with IV Lopressor but she was being discharged ICD fired and so she was brought back in and found to be in A. fib with RVR. Attempts to cardiovert her with stroking was not successful. Patient was admitted and managed for A. fib with RVR. He was started on amiodarone drip. Patient seen and examined. Patient looks much better than yesterday. She remains on amiodarone drip but has converted to sinus rhythm. She has been transitioned to oral amiodarone by cardiology and she is due to stop IV amiodarone ~ 6 hours after starting oral amiodarone. She denies any chest pain , but complains of a cough and says she can bring up the sputum. She denies any shortness of breath, dizziness or palpitations, diarrhea vomiting. Review of systems otherwise negative. Heparin drip was stopped yesterday per cardiology Vitals/I&O's: Vital Signs Temp Pulse Resp BP Pulse Ox 97.2 F L 65 20 H 133/76 H 100 10/05/17 08:00 10/05/17 08:00 10/05/17 08:00 10/05/17 08:00 10/05/17 08:00 Oxygen Flow Rate (L/min) 15 Oxygen Delivery Method Room Air Weight: 147 lb 7.828 oz Body Mass Index (BMI) 26.4 Intake and Output for Last 24 Hours 10/03/17 10/04/17 10/05/17 23:59 23:59 23:59 Intake Total 1471 / 1471 103 / 103 Output Total 251 / 251 275 / 275 Balance 1220 / 1220 -172 / -172 General: Alert, Oriented x3, Cooperative, No apparent distress HEENT: Atraumatic, PERRLA, EOMI, Normocephalic Oral: Moist Mucosa Neck: Supple, No JVD, Negative Carotid Bruits, No Nodes Lungs: Clear to auscultation, Normal air movement, No rhonchi, No wheeze, No rales Cardiovascular: Regular rate, Regular Rhythm, Normal S1, Normal S2, No murmurs Abdomen: Bowel Sounds Present, Soft, Non Tender, Non-Distended, No Hepato- splenomegaly Extremities: No clubbing, No cyanosis, No edema, Capillary Refill Less than 3 Seconds Skin: No rashes, No breakdown Musculoskeletal: No Tenderness to Palpation of Joints or Extremities Lymphatic: No Cervical, Supraclavicular, or Inguinal Adenopathy Neurological: Cranial nerves II-XII grossly intact, Motor Exam 5/5 strength throughout Psych/Mental Status: Normal Affect, Appropriate, Alert and oriented to time, place, person, mood and affect Laboratory Results 10/04/17 14:30: MRSA (PCR) Negative 10/04/17 15:15: PT 15.6 H, INR 1.2, APTT 28.6 10/05/17 04:00: Sodium 133 L, Potassium 3.9, Chloride 98, Carbon Dioxide 25.0, Anion Gap 10, BUN 7, Creatinine 0.59, Estim Creat Clear Calc 34.99, Est GFR ( MDRD) Af Amer 128, Est GFR (MDRD) Non-Af 105, BUN/Creatinine Ratio 11.9, Glucose 118 H, Calcium 8.2 L, Magnesium 1.8 10/05/17 04:00: WBC 11.4 H, RBC 4.90, Hgb 12.8, Hct 39.3, MCV 80.2 L, MCH 26.1 L , MCHC 32.6, RDW 16.5 H, RDW Differential 48.5 H, Plt Count 168, MPV 9.5, Immature Gran % (Auto) 0.300, Neut % (Auto) 77.7 H, Lymph % (Auto) 9.4 L, [place] % (Auto) 12.0 H, Eos % (Auto) 0.4, Baso % (Auto) 0.2, Absolute Neuts (auto) 8.9 H, Absolute Lymphs (auto) 1.07, Total Counted Not Reportable Current Medications Alprazolam (Xanax) 0.25 mg PO DAILY [facility] Amiodarone HCl (Cordarone) 400 mg PO BID [facility] Last Admin: 10/05/17 07:58 Dose: 400 mg Aspirin (Ecotrin) 81 mg PO DAILY [facility] Atorvastatin Calcium (Lipitor) 40 mg PO QHS [facility] Last Admin: 10/04/17 21:29 Dose: 40 mg Clopidogrel Bisulfate (Plavix) 75 mg PO DAILY [facility] Last Admin: 10/04/17 17:54 Dose: 75 mg Heparin Sodium (Porcine) (Heparin Na) 0 unit IV UD PRN PRN Reason: Protocol Hydrochlorothiazide (Hctz) 25 mg PO DAILY [facility] Sodium Chloride () 250 mls @ 15 mls/hr IV .[id number] PRN PRN Reason: SALINE FLUSH Amiodarone HCl/Dextrose (Nexterone 360 Mg/200 Ml Bag) 360 mg in 200 mls @ 16.667 mls/hr CONT INF .Q12H [facility] PRN Reason: 0.5 MG/MIN Stop: 10/05/17 15:00 Isosorbide Mononitrate (Imdur) 30 mg PO BID [facility] Lisinopril (Zestril) 20 mg PO BID [facility] Last Admin: 10/04/17 21:30 Dose: 20 mg Lorazepam (Ativan) 1 mg PO Q6H PRN PRN PRN Reason: BACK SPASMS/ANXIETY Magnesium Hydroxide (Milk Of Magnesia) 30 ml PO DAILY PRN PRN PRN Reason: Constipation Metoprolol Succinate (Toprol Xl (Beta Ans[place])) 50 mg PO BID [facility] Last Admin: 10/04/17 21:29 Dose: 50 mg Multivitamins (Multivitamin) [facility] Nitroglycerin (Nitrostat) 0.4 mg SUBLINGUAL UD PRN PRN Reason: CARDIAC/CHEST PAIN Sodium Chloride () 5 - 30 ml IV UD PRN PRN Reason: SALINE FLUSH Medical Necessity - Tobacco Use Smoking Status: Current every day smoker Assessment/Plan All Active Problems (Last Updated 10/03/17 @ 08:49 by JELANI Vail) Chest pain (Acute) ICD (implantable cardioverter-defibrillator) discharge (Acute) Atrial fibrillation (Acute) Chronic dental infection (Acute) Abnormal stress test (Acute) Long-term use of high-risk medication (Acute) Old myocardial infarction (Resolved ~1997) Right WRIST monoarticular arthritis (Acute) Acute gouty arthritis (Acute) Cellulitis of right upper extremity (Acute) Hyperlipidemia (Acute) 1. Afib with RVR * Now rate and rhythm controlled. * Was admitted and found to be in A. fib with RVR after presenting with chest pain and ICD firing Lasix times in the ED yesterday. Was shocked once in the ED but didnt cardiovert * transitioned to oral amiodarone 400mg bid today; amiodarone drip to be stopped ~ 4-6 hours after starting PO amiodarone * to be on oral amiodarone 400mg bic x 3 days, then to continue PO amiodarone 200mg daily. Per cardiology, will recommend lifelong amiodarone therapy. * echo(): Mildly dilated left ventricle with moderate segmental systolic dysfunction and EF of 35%. He continues to left lateral basal wall and hypokinesia of the posterior basal, mid lateral and lateral apical but did not cardiovert.. LA mildly enlarged; RVSP is 25mmHg' ICD or pacer leads in right atrium. * cardiology on board * will monitor magnesium and potassium levels * no anticoagulation o/a of history of GI blee * * 2. CAD s/p stent * had stent placed in RCA 2 days ago * on aspirin, plavix, statin and metoprolol * imdur dose increased to 30mg bid. * troponin was elevated on admission-2.9; per cardiology, thought it may have been due to difficulty with a small vessel during stenting 2 days ago. * troponin trended down to 2.54 * will monitor * 3. HFrEF * echo(04/15) as mentioned above * on HCTZ; not on lasix. I'm not sure why * BNP was only 51, therefore no evidence of acute exacerbation of heart failure 4. HTN * controlled. was admitted with severely elevated blood pressure, [facility] BP being in in the 190s systolic. * on HCTZ and lisinopril as well as metoprolol; imur increased to 30mg bid to help with BP control * 5. HYpokalemia * Potassium was 3.8 on admission and was replaced. * Potassium is now 3.9. Magnesium is 1.8. Will monitor. * DVT prophylaxis: SCDs; no anticoagulation o/a of history of GI bleed GI prophylaxis: PPI Code status: full code Disposition: for dc home tomorrow This note was generated with [employer]ation software. It may contain incorrect words, spelling, and punctuation that were not noted in checking the note before signing. Code Visit Inpatient E&M: 47531 Subs Hosp L3
[2017-10-05] MEDS: Aspirin E.C. 81 MG Tablet PO (09:25)
[2017-10-05] MEDS: hydroCHLOROthiazide 25 MG Tablet PO (09:25)
[2017-10-05] MEDS: Multivitamins,Therapeutic Tablet 1 TABLET PO (09:25)
[2017-10-05] MEDS: Isosorbide Mononitrate 30 MG Tablet PO ×2 (09:25→22:11)
[2017-10-05] MEDS: Clopidogrel Bisulfate 75 MG Tablet PO (09:26)
[2017-10-05] MEDS: Lisinopril 20 MG Tablet PO ×2 (09:26→22:11)
[2017-10-05] MEDS: Metoprolol(XL)Succ 50 MG Tablet PO ×2 (09:26→22:11)
--- NOTE | 2017-10-05 16:14 | PCM.PN.BLA ---
Progress Note Patient is scheduled for a one week post hospital EKG and blood pressure check with [facility] MA on 10/12/2017 at 9:15 AM. She will keep already scheduled follow-up with [facility] office on 10/17/2017 at 9:30 AM with Kuldip Andino Nurse Practitioner.
[2017-10-05] MEDS: 0.9% NaCl Peripheral Flush Adult/Peds IV ×2 (16:30→23:09)
[2017-10-05] MEDS: Metoprolol Tartrate 5 MG/5 ML Vial IV (16:30)
[2017-10-05] MEDS: CLARIFY ORDER NOTE (17:18)
[2017-10-05] MEDS: dilTIAZem 25 MG/5 ML Vial 10 MG IV BOLUS (21:57)
[2017-10-05] MEDS: Atorvastatin Calcium 40 MG Tablet PO (22:12)
[2017-10-06] VITALS (10 sets, daily range): BP systolic 103–131; BP diastolic 59–89; PULSE 63–115; RESP 14–24; TEMP 36.6–36.9; O2SAT 93–98
[2017-10-06 06:33] LABS: Absolute Lymphocyte Count 1.22 X10^3/ul (0.83-4.51); Absolute Neutrophil Count 9.6 X10^3/uL (2.0-7.7); Basophil# 0.03 X10^3/uL; Basophil% 0.2 % (0-1); Eosinophil# 0.15 X10^3/uL; Eosinophils% 1.2 % (0-5); Hematocrit 40.4 % (37-47); Hemoglobin 13.6 g/dl (12.0-15.0); Lymphocyte # 1.22 X10^3/ul (4.0); Mean Corp Hgb Conc 33.7 g/gl (32-36); Mean Corpuscular Hgb 26.2 pg (27.0-32.0); Mean Corpuscular Volume 77.8 fL (81-99); Monocyte# 1.16 X10^3/uL; Monocyte% 9.5 % (0-10); Neutrophil # 9.55 X10^3/uL (2.7-7.7); Neutrophil % 78.8 % (47-70); Platelet Count 248 K/mm3 (150-450); RBC Distribution Width CV 16.4 % (11.6-14.6); RBC Distribution Width SD 46.4 fl (35.1-43.9); Red Blood Count 5.19 M/mm3 (4.2-5.4); White Blood Count 12.2 K/mm3 (4.4-11.0)
[2017-10-06 06:34] LABS: POSITIVE COUNT NO; POSITIVE DIFFERENTIAL NO; POSITIVE MORPHOLOGY NO
[2017-10-06 06:43] LABS: Anion Gap 12 (5-15); BUN 8 mg/dL (7-18); BUN/Creat Ratio 16.1 RATIO (10-20); Calcium,Total 8.3 mg/dL (8.5-10.1); Chloride 99 mmol/L (98-107); EST Glomerular Filtration Rate 128 mL/min (>60); Est Glom Filt Rate - Afr Amer 155 mL/min (>60); Estimated Creatinine Clearance 34.99 ml/min; Glucose 106 mg/dL (74-106); Magnesium 1.8 mg/dL (1.6-2.6); Potassium 3.5 mmol/L (3.5-5.1); Sodium Level 135 mmol/L (136-145)
[2017-10-06] MEDS: Multivitamins,Therapeutic Tablet 1 TABLET PO (09:46)
[2017-10-06] MEDS: Clopidogrel Bisulfate 75 MG Tablet PO (09:46)
[2017-10-06] MEDS: Metoprolol(XL)Succ 50 MG Tablet PO (09:46)
[2017-10-06] MEDS: Lisinopril 20 MG Tablet PO (09:46)
[2017-10-06] MEDS: Amiodarone 200 MG Tablet 400 MG PO (09:46)
[2017-10-06] MEDS: Aspirin E.C. 81 MG Tablet PO (09:47)
[2017-10-06] MEDS: Isosorbide Mononitrate 30 MG Tablet PO (09:47)
[2017-10-06] MEDS: hydroCHLOROthiazide 25 MG Tablet PO (09:47)
--- NOTE | 2017-10-06 10:52 | PCM.DC ---
- Discharge Diagnoses Current Active Problems: Current Active and Chronic Problems (Last Updated 10/03/17 @ 08:49 by JELANI Vail) Chest pain (Acute) ICD (implantable cardioverter-defibrillator) discharge (Acute) Atrial fibrillation (Acute) You will use the following diet at home:: Cardiac - <2 g sodium daily Your food should be the consistency of: Regular Your liquids should be the consistency of: Regular/Thin Discharge Activity: Return to Normal Activity Instructions: ED Chest Pain Atypical Unkn Cause Allergies/Adverse Reactions: Allergies doxazosin [From Cardura] Allergy (Severe, Verified 10/04/17 07:49) Itching Influenza Virus Vaccines Adverse Reaction (Verified 10/04/17 07:49) Unknown Medications to take at Discharge Alprazolam [Xanax] 0.25 tab PO DAILY 05/24/16 Aspirin [Aspirin EC] 81 mg PO DAILY 05/24/16 Multivitamins,Therapeutic [Multivitamin] 1 tab PO DAILY 05/24/16 Nitroglycerin 0.4 mg SL UD PRN MDD Q5min prn 05/24/16 atorvastatin 40 mg tablet 40 mg PO QDAY 03/27/17 lisinopril 10 mg tablet 20 mg PO BID tab 03/27/17 metoprolol succinate ER 50 mg tablet,extended release 24 hr 50 mg PO BID #180 tab 03/28/17 hydrochlorothiazide 25 mg tablet 25 mg PO DAILY #90 tab 06/18/17 clopidogrel 75 mg tablet 75 mg PO QDAY #30 tab 09/20/17 Lorazepam [Ativan] 1 mg PO Q6H PRN PRN tablet 10/03/17 Amiodarone HCl 200 mg PO BID #60 tab 10/06/17 Amiodarone HCl [Cordarone] 400 mg PO BID #6 tab 10/06/17 Isosorbide Mononitrate [Imdur] 30 mg PO BID #60 tab 10/06/17 The following prescriptions were given: Amiodarone HCl 200 mg PO BID #60 tab Amiodarone HCl [Cordarone] 400 mg PO BID #6 tab Isosorbide Mononitrate [Imdur] 30 mg PO BID #60 tab Primary Care Physician: Enrike Dobbins Chi, MD [Primary Care Provider] - Please follow up with your Primary Care Physician in: 2 weeks Test Results: Test results from this visit will be discussed in further detail at your follow-up appointment, if applicable. Please Follow Up With: August Pandey MD - EKG/BP check 10/12, follow up with PURCHASING SUPERVISOR 10/17 When: As directed Proposed Discharge Date: 10/06/17
--- NOTE | 2017-10-06 13:59 | PCM.DC.SUM ---
<Adolfo Snider - Last Filed: 10/06/17 13:59> Discharge Date and Diagnosis Date of Admission: 10/04/17 Date of Discharge: 10/06/17 - Primary Discharge Diagnosis AF with RVR Defibrillator discharge CAD s/p stent, recent, RCA HTN Anxiety - Secondary Discharge Diagnosis Chronic Problems (Last Updated 10/03/17 @ 08:49 by JELANI Vail) Hypertension (Chronic) Atherosclerotic heart disease of [place] coronary artery without angina pectoris (Chronic) Successful PTCA/OLIVER of the of proximal RCA with a 3.5 x 38 Promus stent, post dilated throughout with a 4.0 x 12 NC balloon at 14 yulia; 75%-->0%, no dissection 10/02/2017 Ischemic cardiomyopathy (Chronic) Ventricular tachycardia (Chronic) Presence of cardiac defibrillator (Chronic ~2005) gen change 11/02/11 Polycythemia (Chronic) Hx of heart artery stent (Chronic) Hypertension (Chronic) Dyslipidemia (Chronic) Hospital Course and Treatment Imaging Results: RAD/Chest 1 View (Portable) IMPRESSION: Mild suboptimal inspiration without active pulmonary disease identified. Cardiomegaly which appears stable and may be accentuated by suboptimal inspiration. No change position of pacemaker/defibrillator with single continuous appearing intraventricular lead. Stable appearing COPD. Consults: Gus/Dannie - cardiology Operations: None Procedures: None Summary of Care Provided: Physical exam on day of discharge: General: Resting comfortably NAD Psych: A/Ox3 normal affect HEENT: PEARRLA AT NC Neck: Supple NT CV: RRR no m/t/r/g/h Resp: CTA Abd: [id number] Soft NT no guarding or rigidity Ext: DP2+= no edema Skin: W/D normal turgor Lymph/Heme: No active bleeding or adenopathy Neuro: CN2-12 intact Hospital course: The patient is a 77 year old F with a hx of CAD who recently was discharged from the hospital following successful stent placement to the RCA, hx of ischemic cardiomyopathy with defibrillator in place, HLD, HTN, who presented to the ER after defibrillator discharged 6 times. She came to the ER following this and complaining of chest pain. She was found to be in Afib with RVR. Cardiology was contacted, and the ER physician cardioverted the patient unsuccessfully. She was given IV amiodarone. She was admitted to the PCU on amio drip. Her rate successfully converted to normal rate controlled sinus rhythm. She was transitioned to PO admio. She remained stable. She was not felt to be a candidate for OAC. She did have a hx of vaginal bleeding following a cardiac procedure and easy bruising with plavix. She was Rx's to continue 3 days total amiodarone 400mg BID, followed by 200 BID. She was discharged home in stable condition. 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 This patient was seen by Adolfo Snider PA-C under the supervision of Doctor Madhu. [] Discharge Diet: Low fat/ Low Cholesterol, 2000 mg Sodium Diet Discharge Activity: Return to Normal Activity Home Medications: Medications to take at Discharge Alprazolam [Xanax] 0.25 tab PO DAILY 05/24/16 Aspirin [Aspirin EC] 81 mg PO DAILY 05/24/16 Multivitamins,Therapeutic [Multivitamin] 1 tab PO DAILY 05/24/16 Nitroglycerin 0.4 mg SL UD PRN MDD Q5min prn 05/24/16 atorvastatin 40 mg tablet 40 mg PO QDAY 03/27/17 lisinopril 10 mg tablet 20 mg PO BID tab 03/27/17 metoprolol succinate ER 50 mg tablet,extended release 24 hr 50 mg PO BID #180 tab 03/28/17 hydrochlorothiazide 25 mg tablet 25 mg PO DAILY #90 tab 06/18/17 clopidogrel 75 mg tablet 75 mg PO QDAY #30 tab 09/20/17 Lorazepam [Ativan] 1 mg PO Q6H PRN PRN tablet 10/03/17 Amiodarone HCl 200 mg PO BID #60 tab 10/06/17 Amiodarone HCl [Cordarone] 400 mg PO BID #6 tab 10/06/17 Isosorbide Mononitrate [Imdur] 30 mg PO BID #60 tab 10/06/17 Following Prescrptions Were Given to Patient: Amiodarone HCl 200 mg PO BID #60 tab Amiodarone HCl [Cordarone] 400 mg PO BID #6 tab Isosorbide Mononitrate [Imdur] 30 mg PO BID #60 tab Primary Care Physician: Enrike Dobbins Chi, MD [Primary Care Provider] - Please follow up with your Primary Care Physician in: 2 weeks Please Follow Up With: August Pandey MD - EKG/BP check 10/12, follow up with CORPORATE DEVELOPMENT MANAGER 10/17 When: As directed Patient Instructions: ED Chest Pain Atypical Unkn Cause Disposition: Home Minutes spent on discharge:: 35 Patient Condition:: Stable Medical Necessity - Tobacco Use Smoking Status: Current every day smoker Meaningful Use Info Meaningful Use Diagnoses (Choose all that apply): None applicable <Alcon Leung E - Last Filed: 10/06/17 14:42> Discharge Date and Diagnosis - Secondary Discharge Diagnosis Chronic Problems (Last Updated 10/03/17 @ 08:49 by JELANI Vail) Hypertension (Chronic) Atherosclerotic heart disease of [place] coronary artery without angina pectoris (Chronic) Successful PTCA/OLIVER of the of proximal RCA with a 3.5 x 38 Promus stent, post dilated throughout with a 4.0 x 12 NC balloon at 14 yulia; 75%-->0%, no dissection 10/02/2017 Ischemic cardiomyopathy (Chronic) Ventricular tachycardia (Chronic) Presence of cardiac defibrillator (Chronic ~2005) gen change 11/02/11 Polycythemia (Chronic) Hx of heart artery stent (Chronic) Hypertension (Chronic) Dyslipidemia (Chronic) Hospital Course and Treatment Summary of Care Provided: Hospitalist note: Discharge summary above reviewed as well as physical examination and I agree with above discharge and treatment plan. Patient was admitted for chest pain, found to have A. fib with RVR in context of successful PTCA/OLIVER to proximal RCA 2 days before this admission. Patient came back 2 days after discharge with chest pain, found to be in A. fib with RVR and she underwent successful cardioversion and she converted back to sinus rhythm. She was treated with IV amiodarone drip and eventually, transitioned to oral amiodarone. During this admission, her troponin was elevated which is attributed to the recent heart catheter and stent placement. Cardiology consulted and recommended no interventions or more cardiac workup. After cardioversion, patient remained in sinus rhythm with stable heart rate, blood pressure and her other vital signs were stable. Patient discharged home in a stable medical condition, discharged on amiodarone, continued on aspirin, statins, Plavix, nitrates, metoprolol and lisinopril. She was not a candidate for anticoagulation because of history of vaginal bleeding and she has extensive bruises because of Plavix. Plan to follow-up with cardiology according to Dr. Pnadey recommendation, follow-up with PCP in 2 weeks. - Physical Exam General: Alert, Oriented x3, Cooperative, No apparent distress. HEENT: Atraumatic, PERRLA, EOMI. Neck: Supple, No JVD, Negative Carotid Bruits, Trachea Midline, Thyroid Normal. Lungs: Diminished breath sounds bilateral, otherwise clear, No rhonchi, No wheeze, No rales. Cardiovascular: Regular rate, Regular Rhythm, Normal S1, Normal S2, PMI Normal. Abdomen: Bowel Sounds Present, Soft, Non Tender, Non-Distended, No Hepato-splenomegaly. Extremities: No clubbing, No cyanosis, No edema Skin: No rashes, No breakdown Neurological: Neuro grossly intact Vital Signs are stable. This note was generated with [employer] dictation software. It may contain incorrect words, spelling, and punctuation that were not noted in checking the note before signing. Meaningful Use Info Meaningful Use Diagnoses (Choose all that apply): None applicable Code Visit Inpatient E&M: 46844 Disch Hosp
--- NOTE | 2017-10-06 14:05 | DS.PCM_ITS ---
<Adolfo Snider - Last Filed: 10/06/17 13:59> Discharge Date and Diagnosis Date of Admission: 10/04/17 Date of Discharge: 10/06/17 - Primary Discharge Diagnosis AF with RVR Defibrillator discharge CAD s/p stent, recent, RCA HTN Anxiety - Secondary Discharge Diagnosis Chronic Problems (Last Updated 10/03/17 @ 08:49 by JELANI Vail) Hypertension (Chronic) Atherosclerotic heart disease of [place] coronary artery without angina pectoris (Chronic) Successful PTCA/OLIVER of the of proximal RCA with a 3.5 x 38 Promus stent, post dilated throughout with a 4.0 x 12 NC balloon at 14 yulia; 75%-->0%, no dissection 10/02/2017 Ischemic cardiomyopathy (Chronic) Ventricular tachycardia (Chronic) Presence of cardiac defibrillator (Chronic ~2005) gen change 11/02/11 Polycythemia (Chronic) Hx of heart artery stent (Chronic) Hypertension (Chronic) Dyslipidemia (Chronic) Hospital Course and Treatment Imaging Results: RAD/Chest 1 View (Portable) IMPRESSION: Mild suboptimal inspiration without active pulmonary disease identified. Cardiomegaly which appears stable and may be accentuated by suboptimal inspiration. No change position of pacemaker/defibrillator with single continuous appearing intraventricular lead. Stable appearing COPD. Consults: Gus/Dannie - cardiology Operations: None Procedures: None Summary of Care Provided: Physical exam on day of discharge: General: Resting comfortably NAD Psych: A/Ox3 normal affect HEENT: [place] AT NC Neck: Supple NT CV: RRR no m/t/r/g/h Resp: CTA Abd: [id number] Soft NT no guarding or rigidity Ext: DP2+= no edema Skin: W/D normal turgor Lymph/Heme: No active bleeding or adenopathy Neuro: CN2-12 intact Hospital course: The patient is a 77 year old F with a hx of CAD who recently was discharged from the hospital following successful stent placement to the RCA, hx of ischemic cardiomyopathy with defibrillator in place, HLD, HTN, who presented to the ER after defibrillator discharged 6 times. She came to the ER following this and complaining of chest pain. She was found to be in Afib with RVR. Cardiology was contacted, and the ER physician cardioverted the patient unsuccessfully. She was given IV amiodarone. She was admitted to the PCU on amio drip. Her rate successfully converted to normal rate controlled sinus rhythm. She was transitioned to PO admio. She remained stable. She was not felt to be a candidate for OAC. She did have a hx of vaginal bleeding following a cardiac procedure and easy bruising with plavix. She was Rx's to continue 3 days total amiodarone 400mg BID, followed by 200 BID. She was discharged home in stable condition. She will need to follow up with her PCP and manager of international 1- 2 weeks. This patient was seen by Adolfo Snider PA-C under the supervision of Doctor Madhu. [] Discharge Diet: Low fat/ Low Cholesterol, 2000 mg Sodium Diet Discharge Activity: Return to Normal Activity Home Medications: Medications to take at Discharge Alprazolam [Xanax] 0.25 tab PO DAILY 05/24/16 Aspirin [Aspirin EC] 81 mg PO DAILY 05/24/16 Multivitamins,Therapeutic [Multivitamin] 1 tab PO DAILY 05/24/16 Nitroglycerin 0.4 mg SL UD PRN MDD Q5min prn 05/24/16 atorvastatin 40 mg tablet 40 mg PO QDAY 03/27/17 lisinopril 10 mg tablet 20 mg PO BID tab 03/27/17 metoprolol succinate ER 50 mg tablet,extended release 24 hr 50 mg PO BID #180 tab 03/28/17 hydrochlorothiazide 25 mg tablet 25 mg PO DAILY #90 tab 06/18/17 clopidogrel 75 mg tablet 75 mg PO QDAY #30 tab 09/20/17 Lorazepam [Ativan] 1 mg PO Q6H PRN PRN tablet 10/03/17 Amiodarone HCl 200 mg PO BID #60 tab 10/06/17 Amiodarone HCl [Cordarone] 400 mg PO BID #6 tab 10/06/17 Isosorbide Mononitrate [Imdur] 30 mg PO BID #60 tab 10/06/17 Following Prescrptions Were Given to Patient: Amiodarone HCl 200 mg PO BID #60 tab Amiodarone HCl [Cordarone] 400 mg PO BID #6 tab Isosorbide Mononitrate [Imdur] 30 mg PO BID #60 tab Primary Care Physician: Enrike Dobbins Chi, MD [Primary Care Provider] - Please follow up with your Primary Care Physician in: 2 weeks Please Follow Up With: August Pandey MD - EKG/BP check 10/12, follow up with FACTORY LABORER 10/17 When: As directed Patient Instructions: ED Chest Pain Atypical Unkn Cause Disposition: Home Minutes spent on discharge:: 35 Patient Condition:: Stable Medical Necessity - Tobacco Use Smoking Status: Current every day smoker Meaningful Use Info Meaningful Use Diagnoses (Choose all that apply): None applicable <Alcon Leung E - Last Filed: 10/06/17 14:42> Discharge Date and Diagnosis - Secondary Discharge Diagnosis Chronic Problems (Last Updated 10/03/17 @ 08:49 by JELANI Vail) Hypertension (Chronic) Atherosclerotic heart disease of [place] coronary artery without angina pectoris (Chronic) Successful PTCA/OLIVER of the of proximal RCA with a 3.5 x 38 Promus stent, post dilated throughout with a 4.0 x 12 NC balloon at 14 yulia; 75%-->0%, no dissection 10/02/2017 Ischemic cardiomyopathy (Chronic) Ventricular tachycardia (Chronic) Presence of cardiac defibrillator (Chronic ~2005) gen change 11/02/11 Polycythemia (Chronic) Hx of heart artery stent (Chronic) Hypertension (Chronic) Dyslipidemia (Chronic) Hospital Course and Treatment Summary of Care Provided: Hospitalist note: Discharge summary above reviewed as well as physical examination and I agree with above discharge and treatment plan. Patient was admitted for chest pain, found to have A. fib with RVR in context of successful PTCA/OLIVER to proximal RCA 2 days before this admission. Patient came back 2 days after discharge with chest pain, found to be in A. fib with RVR and she underwent successful cardioversion and she converted back to sinus rhythm. She was treated with IV amiodarone drip and eventually, transitioned to oral amiodarone. During this admission, her troponin was elevated which is attributed to the recent heart catheter and stent placement. Cardiology consulted and recommended no interventions or more cardiac workup. After cardioversion, patient remained in sinus rhythm with stable heart rate, blood pressure and her other vital signs were stable. Patient discharged home in a stable medical condition, discharged on amiodarone, continued on aspirin, statins, Plavix, nitrates, metoprolol and lisinopril. She was not a candidate for anticoagulation because of history of vaginal bleeding and she has extensive bruises because of Plavix. Plan to follow-up with cardiology according to Dr. Pandey recommendation, follow-up with PCP in 2 weeks. - Physical Exam General: Alert, Oriented x3, Cooperative, No apparent distress. HEENT: Atraumatic, PERRLA, EOMI. Neck: Supple, No JVD, Negative Carotid Bruits, Trachea Midline, Thyroid Normal. Lungs: Diminished breath sounds bilateral, otherwise clear, No rhonchi, No wheeze, No rales. Cardiovascular: Regular rate, Regular Rhythm, Normal S1, Normal S2, PMI Normal. Abdomen: Bowel Sounds Present, Soft, Non Tender, Non-Distended, No Hepato- splenomegaly. Extremities: No clubbing, No cyanosis, No edema Skin: No rashes, No breakdown Neurological: Neuro grossly intact Vital Signs are stable. This note was generated with [employer] dictation software. It may contain incorrect words, spelling, and punctuation that were not noted in checking the note before signing. Meaningful Use Info Meaningful Use Diagnoses (Choose all that apply): None applicable Code Visit Inpatient E&M: 98125 Disch Hosp
--- NOTE | 2017-10-08 12:00 | CASEMGMT ---
BEBO MILLER DC Phone Call: Call to home phone. Intro role of CM to patient's [id number] who is helping care for pt. DC DATE: 10/06/2017 LACE/STRATA: 10/ -Per [id number] pt is improving, however not sleeping well at night. No questions regarding medications, f/u or instructions. No f/u appointment has been made yet. BEBO MILLER offered to assist, but she declined, stating they would help her make appt. BEBO MILLER recommended they speak with nurse, let her know pt was in hospital and is having difficulty sleeping. They may assist in an earlier appointment. [id number] is agreeable. States no further questions or concerns. Bisi PHILLIPSN RN AC
== END 2017-10-06 12:04 | disposition home or self-care (01) | DRG 309 ==
LOC: ED 08:03 → ICU 12:32 → PCU 10-05 15:33
PROVIDERS: Admitting Provider Student in an Organized Health Care Education/Training Program; Emergency Provider Emergency Medicine; Family Provider Family Medicine Geriatric Medicine; PCP Family Medicine Geriatric Medicine; Visit Provider Hospitalist
DX: I48.91 Unspecified atrial fibrillation (principal); I50.20 Unspecified systolic (congestive) heart failure; I25.10 Atherosclerotic heart disease of native coronary artery without angina pectoris; I47.2 Ventricular tachycardia; Z95.5 Presence of coronary angioplasty implant and graft; E78.5 Hyperlipidemia, unspecified; F17.200 Nicotine dependence, unspecified, uncomplicated; E87.6 Hypokalemia; I25.5 Ischemic cardiomyopathy; I11.0 Hypertensive heart disease with heart failure; F41.9 Anxiety disorder, unspecified; D75.1 Secondary polycythemia; I25.2 Old myocardial infarction; Z95.810 Presence of automatic (implantable) cardiac defibrillator
CPT/HCPCS: 36415; 71045; 80048; 80061; 83735; 83880; 84484; 85025; 85027; 85347; 85610; 85730; 87641; 92928; 92960; 93005; 96365; 96366; 96375; 99152; 99153; 99218; 99285; J7030; J7040; A4216; C1725; C1769; C1874; C1887; C1894; C9600; G0378; G0379; J2405; Q9967

== ENCOUNTER → 2017-10-18 16:06 | Outpatient (CLI) | payer MEDICARE, BC, SELFPAY | PROVIDERS: Family Provider Family Medicine Geriatric Medicine; PCP Family Medicine Geriatric Medicine; Visit Provider Family Medicine Geriatric Medicine | DX: N39.0 Urinary tract infection, site not specified (principal) | CPT/HCPCS: 87077; 87086; 87088; 87186 ==

== ENCOUNTER → 2017-12-18 15:59 | Outpatient (CLI) | payer MEDICARE, BC, SELFPAY ==
[2017-12-18 17:16] LABS: Absolute Lymphocyte Count 1.17 X10^3/ul (0.83-4.51); Absolute Neutrophil Count 5.6 X10^3/uL (2.0-7.7); Basophil# 0.05 X10^3/uL; Basophil% 0.6 % (0-1); Eosinophil# 0.18 X10^3/uL; Eosinophils% 2.3 % (0-5); Hematocrit 45.5 % (37-47); Hemoglobin 15.3 g/dl (12.0-15.0); Lymphocyte # 1.17 X10^3/ul (4.0); Lymphocyte % 14.9 % (19-41); Mean Corp Hgb Conc 33.6 g/gl (32-36); Mean Corpuscular Hgb 26.3 pg (27.0-32.0); Mean Corpuscular Volume 78.2 fL (81-99); Mean Platelet Vol. 10.1 fl (6.2-12.0); Monocyte# 0.86 X10^3/uL; Neutrophil # 5.55 X10^3/uL (2.7-7.7); Neutrophil % 70.9 % (47-70); Platelet Count 353 K/mm3 (150-450); RBC Distribution Width CV 17.8 % (11.6-14.6); RBC Distribution Width SD 50.7 fl (35.1-43.9); Red Blood Count 5.82 M/mm3 (4.2-5.4); White Blood Count 7.8 K/mm3 (4.4-11.0)
[2017-12-18 17:29] LABS: POSITIVE COUNT NO; POSITIVE DIFFERENTIAL NO; POSITIVE MORPHOLOGY NO
[2017-12-18 17:36] LABS: ALB/GLOB Ratio 1.1 RATIO (0.9-2.4); AST(SGOT) 30 U/L (15-37); Alanine Aminotransfer ALT/SGPT 40 U/L (13-56); Albumin, Serum 3.7 g/dL (3.2-5.0); Alkaline Phosphatase 108 U/L (45-117); Anion Gap 9 (5-15); BUN 11 mg/dL (7-18); BUN/Creat Ratio 13.3 RATIO (10-20); Calcium,Total 9.2 mg/dL (8.5-10.1); Chloride 95 mmol/L (98-107); Creatinine, Serum 0.83 mg/dL (0.55-1.02); EST Glomerular Filtration Rate 71 mL/min (>60); Est Glom Filt Rate - Afr Amer 85 mL/min (>60); Globulin 3.5 g/dL (2.2-4.2); Glucose 99 mg/dL (74-106); Potassium 3.6 mmol/L (3.5-5.1); Protein, Total 7.2 g/dL (6.4-8.2); Sodium Level 133 mmol/L (136-145); Thyroid Stim Hormone (TSH) 3.39 uIU/mL (0.358-3.74)
[2017-12-18 18:11] LABS: Vitamin D,25 Hydroxy 18.6 ng/mL (29.95-100.01)
== END ==
PROVIDERS: Family Provider Family Medicine Geriatric Medicine; PCP Family Medicine Geriatric Medicine; Visit Provider Family Medicine Geriatric Medicine
DX: E55.9 Vitamin D deficiency, unspecified (principal); I10 Essential (primary) hypertension
CPT/HCPCS: 36415; 80053; 82306; 84443; 85025

== ENCOUNTER → 2018-01-03 16:51 | Outpatient (CLI) | payer MEDICARE, BC, SELFPAY | PROVIDERS: Family Provider Family Medicine Geriatric Medicine; PCP Family Medicine Geriatric Medicine; Visit Provider Family Medicine Geriatric Medicine | DX: N39.0 Urinary tract infection, site not specified (principal) | CPT/HCPCS: 87086; 87088; 87186 ==

== ENCOUNTER → 2018-06-18 | Outpatient (CLI) | payer MEDICARE, BC, SELFPAY ==
[2018-03-06 14:16] VITALS: BMI 27.5
[2018-06-18 17:19] LABS: ALB/GLOB Ratio 1.1 RATIO (0.9-2.4); AST(SGOT) 16 U/L (15-37); Alanine Aminotransfer ALT/SGPT 24 U/L (13-56); Albumin, Serum 3.6 g/dL (3.2-5.0); Alkaline Phosphatase 119 U/L (45-117); Anion Gap 7 (5-15); BUN 15 mg/dL (7-18); BUN/Creat Ratio 18.2 RATIO (10-20); Calcium,Total 9.1 mg/dL (8.5-10.1); Chloride 102 mmol/L (98-107); Creatinine, Serum 0.82 mg/dL (0.55-1.02); EST Glomerular Filtration Rate 71 mL/min (>60); Est Glom Filt Rate - Afr Amer 86 mL/min (>60); Globulin 3.3 g/dL (2.2-4.2); Glucose 95 mg/dL (74-106); Potassium 3.6 mmol/L (3.5-5.1); Protein, Total 6.9 g/dL (6.4-8.2); Sodium Level 136 mmol/L (136-145); Thyroid Stim Hormone (TSH) 1.88 uIU/mL (0.358-3.74)
[2018-06-18 17:24] LABS: Vitamin D,25 Hydroxy 24.5 ng/mL (29.95-100.01)
[2018-06-18 17:35] LABS: Absolute Lymphocyte Count 1.98 X10^3/ul (0.83-4.51); Absolute Neutrophil Count 7.4 X10^3/uL (2.0-7.7); Basophil# 0.07 X10^3/uL; Basophil% 0.7 % (0-1); Eosinophil# 0.22 X10^3/uL; Eosinophils% 2.1 % (0-5); Hematocrit 47.1 % (37-47); Hemoglobin 15.7 g/dl (12.0-15.0); Lymphocyte # 1.98 X10^3/ul (4.0); Lymphocyte % 18.8 % (19-41); Mean Corp Hgb Conc 33.3 g/gl (32-36); Mean Corpuscular Hgb 26.2 pg (27.0-32.0); Mean Corpuscular Volume 78.6 fL (81-99); Mean Platelet Vol. 9.6 fl (6.2-12.0); Monocyte% 7.6 % (0-10); Neutrophil # 7.43 X10^3/uL (2.7-7.7); Neutrophil % 70.7 % (47-70); Platelet Count 328 K/mm3 (150-450); RBC Distribution Width CV 16.8 % (11.6-14.6); RBC Distribution Width SD 47.6 fl (35.1-43.9); Red Blood Count 5.99 M/mm3 (4.2-5.4); White Blood Count 10.5 K/mm3 (4.4-11.0)
[2018-06-18 17:36] LABS: POSITIVE COUNT NO; POSITIVE DIFFERENTIAL NO; POSITIVE MORPHOLOGY NO
== END | disposition home or self-care (01) ==
LOC: POLAB3 14:49
PROVIDERS: Family Provider Family Medicine Geriatric Medicine; PCP Family Medicine Geriatric Medicine; Visit Provider Family Medicine Geriatric Medicine
DX: E55.9 Vitamin D deficiency, unspecified (principal); I10 Essential (primary) hypertension
CPT/HCPCS: 36415; 80053; 82306; 84443; 85025

== ENCOUNTER → 2018-06-26 | Outpatient (CLI) | payer MEDICARE, BC, SELFPAY ==
[2018-06-26 08:07] VITALS: BMI 27.5
--- NOTE | 2018-06-26 14:14 | RAD_ITS ---
STUDY: X-RAY - CERVICAL SPINE REASON FOR EXAM: Female, 77 years old. Pain. TECHNIQUE: 5 view(s) of the cervical spine were obtained. COMPARISON: None FINDINGS: There are degenerative changes of the anterior atlantoaxial articulation. Normal odontoid process. Normal cervical lordosis. There is multi-level endplate spondylosis. There is multi-level degenerative disc disease with multilevel disc space narrowing. Normal visualized intervertebral neuroforamina. The soft tissue structures are unremarkable. RAD/Cerv Spine 4 or 5 Views IMPRESSION: There is multi-level endplate spondylosis. There is multi-level degenerative disc disease with multilevel disc space narrowing. Electronically Signed: Stanley Colón, at 8:12 EDT Tel , Service support ,
--- NOTE | 2018-06-26 14:22 | RAD_ITS ---
STUDY: X-RAY - LEFT SHOULDER REASON FOR EXAM: Female, 77 years old. Pain. Fall. TECHNIQUE: 4 view(s) of the shoulder. COMPARISON: None. FINDINGS: There are degenerative changes of the glenohumeral articulation. There are degenerative changes of the acromioclavicular joint. Normal acromion. Normal humeral head and visualized proximal humerus. There is periarticular soft tissue calcification consistent with a calcific tendinitis. There is a pacemaker device in place projecting over the left hemithorax. RAD/Shoulder min 2 Views IMPRESSION: Degenerative changes. Calcific tendinitis. Electronically Signed: Padmini Bales MD at 17:27 EDT Tel , Service support ,
== END | disposition home or self-care (01) ==
LOC: HPRAD 14:13
PROVIDERS: Family Provider Family Medicine Geriatric Medicine; PCP Family Medicine Geriatric Medicine; Referring Provider Orthopaedic Surgery; Visit Provider Orthopaedic Surgery
DX: M54.2 Cervicalgia (principal); M25.512 Pain in left shoulder
CPT/HCPCS: 72050; 73030

== ENCOUNTER → 2018-08-15 | Outpatient (CLI) | payer MEDICARE, BC, SELFPAY ==
[2018-06-26 08:07] VITALS: BMI 27.5
--- NOTE | 2018-08-15 15:44 | RAD_ITS ---
STUDY: X-RAY - CERVICAL SPINE REASON FOR EXAM: Female, 78 years old. Neck pain, Fall one year ago. TECHNIQUE: view(s) of the cervical spine were obtained. COMPARISON: None FINDINGS: The odontoid and lateral masses appear intact and aligned without significant degenerative features. Prominent multilevel facet arthropathy/hypertrophy of the upper and mid cervical spine. Mild low cervical spine. Normal cervical body height and alignment with preserved lordosis. Mild disc narrowing is present at C3-C4, C4-C5, C5-C6. Prevertebral soft tissues normal. Airways normal. Prominent calcification of the carotid bulbs bilaterally. Apical lungs clear. RAD/Cerv Spine 2 or 3 Views IMPRESSION: Multilevel cervical spondylosis, mild multilevel degenerative disc disease, severe multilevel facet arthropathy/hypertrophy. Bilateral carotid atherosclerosis. Electronically Signed: Rickie Ivan MD at 15:44 EDT Tel , Service support ,
== END | disposition home or self-care (01) ==
LOC: RAD 15:42
PROVIDERS: Family Provider Family Medicine Geriatric Medicine; PCP Family Medicine Geriatric Medicine; Referring Provider Anesthesiology Pain Medicine; Visit Provider Anesthesiology Pain Medicine
DX: M54.2 Cervicalgia (principal)
CPT/HCPCS: 72040

== ENCOUNTER → 2018-08-26 | Outpatient (CLI) | payer MEDICARE, BC, SELFPAY ==
[2018-06-26 08:07] VITALS: BMI 27.5
--- NOTE | 2018-08-26 14:48 | CT_ITS ---
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 2D reformats were reviewed. A radiation dose optimization technique was used for this scan. COMPARISON: May 30, 2016 CT scan the abdomen and pelvis with sagittal and coronal reformats that include the lower thoracic, lumbar spine, and sacrum FINDINGS: # of images incl. paperwork: 440 Dextroscoliosis remains. Fusion of the L2 and L3 vertebral bodies is the same. The apex of the dextroscoliosis is at the L3 level. Left lateral subluxation of L1 on L2 is the same. Right lateral subluxation of L3 on L4 is the same. Right lateral subluxation of L4 on L5 is the same. Narrowing of disc space with disc gas phenomenon and enthesophytes about the lumbar spine is the same. Facet arthropathy is present throughout. Severe calcific atherosclerotic set plaque within the abdominal aorta with tortuosity, but without aneurysm is the same. Cardiac defibrillator/pacer lead persists. No hydronephrosis. The uterus is atrophic. At the L1-L2 level there is some gas extending posteriorly into the spinal canal in a left paraspinal position. This is indicative of severe degenerative disc disease, and annular tear, and disc gas phenomenon from the disc space herniating through a tear in the annulus fibrosis and extending anteriorly into the epidural space. Although the gas within this location is new since the the previous study, the presence of the gas within the epidural space does not imply that the annular tear is new. The severity of the degenerative disc disease at the L1-L2 level is similar. Mild spinal canal stenosis at the L2-L3 level. Moderate spinal canal stenosis at the L3-L4 level. Severe spinal canal stenosis is present at the L5-S1 level. This disease is due to malalignment, facet arthropathy, ligamentum thickening, and disc bulge. The severity of the spinal canal stenosis appears to be similar to the previous study. Comparing current study, series 3 image 68, the previous study, series [address]/Spine Lumbar without Contrast IMPRESSION: Severe multilevel degenerative disc disease. Severe enthesophytes and malalignment at many levels. Severe facet arthropathy at many levels. Chronic fusion of the L2 and L3 vertebral bodies with bulky enthesophytes at many levels. This degenerative disease disc disease, facet arthropathy, ligamentum thickening, and malalignment contributes to spinal canal stenosis at many levels. It is most severe at the L4-L5 level where it is severe. These findings appear to be very similar to previous CT scan the head and pelvis dated May 30, 2016. Individualized dose optimization techniques were used for this CT. at 0058 Reported and signed by: Kd George MD Electronically Signed: Kd George MD at 0:57 EDT Tel , Service support ,
== END | disposition home or self-care (01) ==
LOC: CT 14:47
PROVIDERS: Family Provider Family Medicine Geriatric Medicine; PCP Family Medicine Geriatric Medicine; Referring Provider Anesthesiology Pain Medicine; Visit Provider Anesthesiology Pain Medicine
DX: M54.9 Dorsalgia, unspecified (principal); M79.606 Pain in leg, unspecified
CPT/HCPCS: 72131

== ENCOUNTER → 2018-11-12 09:45 | Outpatient (CLI) | payer MEDICARE, BC, SELFPAY ==
[2018-10-09 14:12] VITALS: BMI 25.9
--- NOTE | 2018-11-13 09:31 | PFT ---
INTRODUCTION: The patient is a 78-year-old female that presents for pulmonary function studies secondary to a diagnosis of high risk medication use. Respiratory therapy reports good patient effort. Bronchodilators were used during testing. INTERPRETATION: Forced expiration spirometry demonstrates no evidence of a large airways obstructive ventilatory defect. There was no significant response to aerosolized bronchodilators, based upon strict ATS criteria. Spirograms are of suboptimal quality and terminate prior to 6 seconds, likely underestimating FVC. Body plethysmography was performed and reveals lung volumes to be within normal limits. Diffusing capacity by single breath CO is within normal limits at 82% of predicted. IMPRESSION: Normal pulmonary function studies.
== END ==
PROVIDERS: Family Provider Family Medicine Geriatric Medicine; PCP Family Medicine Geriatric Medicine; Referring Provider Internal Medicine Cardiovascular Disease; Visit Provider Internal Medicine Cardiovascular Disease
DX: I25.10 Atherosclerotic heart disease of native coronary artery without angina pectoris (principal); Z95.5 Presence of coronary angioplasty implant and graft; I25.5 Ischemic cardiomyopathy; I48.0 Paroxysmal atrial fibrillation; I47.2 Ventricular tachycardia; Z95.810 Presence of automatic (implantable) cardiac defibrillator; E78.5 Hyperlipidemia, unspecified; Z79.899 Other long term (current) drug therapy
CPT/HCPCS: 94060; 94726; 94729

== ENCOUNTER → 2018-12-17 16:00 | Outpatient (CLI) | payer MEDICARE, BC, SELFPAY ==
[2018-10-09 14:12] VITALS: BMI 25.9
--- NOTE | 2018-12-17 16:14 | RAD_ITS ---
STUDY: X-RAY - LEFT FOOT CLINICAL: Female, 78 years old. Foot pain. Swelling and bruising. TECHNIQUE: 3 view(s) of the foot. COMPARISON: None. FINDINGS: Normal talus, calcaneus, and tarsal bones. Normal visualized subtalar, talonavicular, calcaneocuboid, tarsal and tarsometatarsal articulations. Normal metatarsi. Normal metatarsophalangeal joint of the great toe. Normal tibial and fibular sesamoid bones. Normal interphalangeal joint of the great toe. Normal phalanges of the great toe. Normal second through fifth metatarsophalangeal joints. Normal interphalangeal joints and phalanges of the lesser toes. The soft tissue structures are unremarkable. RAD/Foot min 3 Views IMPRESSION: No fracture or dislocation. Electronically Signed: Yair Serrano DO at 22:44 EDT Tel [phone], Service support ,
--- NOTE | 2018-12-17 16:20 | RAD_ITS ---
STUDY: X-RAY - RIGHT FOOT CLINICAL: Female, 78 years old. Foot pain. Bruising and swelling. No injury. TECHNIQUE: 3 view(s) of the foot. COMPARISON: None. FINDINGS: Normal talus, calcaneus, and tarsal bones. Normal visualized subtalar, talonavicular, calcaneocuboid, tarsal and tarsometatarsal articulations. Normal metatarsi. 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 Normal tibial and fibular sesamoid bones. There is degenerative arthrosis of the interphalangeal joint of the great toe. Normal phalanges of the great toe. Normal second through fifth metatarsophalangeal joints. Normal interphalangeal joints and phalanges of the lesser toes. The soft tissue structures are unremarkable. RAD/Foot min 3 Views IMPRESSION: Degenerative changes of the first digit. Electronically Signed: Yair Serrano DO at 22:45 EDT Tel [phone], Service support ,
[2018-12-17 16:56] LABS: Absolute Lymphocyte Count 1.82 X10^3/uL (0.83-4.51); Absolute Neutrophil Count 10.5 X10^3/uL (2.0-7.7); Basophil# 0.12 X10^3/uL; Basophil% 0.9 % (0-1); Eosinophil# 0.14 X10^3/uL; Hematocrit 48.8 % (37-47); Hemoglobin 15.7 g/dL (12.0-15.0); Lymphocyte # 1.82 X10^3/ul (4.0); Lymphocyte % 13.1 % (19-41); Mean Corp Hgb Conc 32.2 g/dL (32-36); Mean Corpuscular Hgb 26.3 pg (27.0-32.0); Mean Corpuscular Volume 81.6 fL (81-99); Mean Platelet Vol. 9.3 fl (6.2-12.0); Monocyte# 1.24 X10^3/uL; Monocyte% 8.9 % (0-10); NRBC Flagged by Analyzer 0 % (0-5); Neutrophil # 10.45 X10^3/uL (2.7-7.7); Neutrophil % 75.2 % (47-70); Platelet Count 321 K/mm3 (150-450); RBC Distribution Width CV 17.1 % (11.6-14.6); RBC Distribution Width SD 47.8 fl (35.1-43.9); Red Blood Count 5.98 M/mm3 (4.2-5.4); White Blood Count 13.9 K/mm3 (4.4-11.0)
== END ==
PROVIDERS: Family Provider Family Medicine Geriatric Medicine; PCP Family Medicine Geriatric Medicine; Referring Provider Family Medicine Geriatric Medicine; Visit Provider Family Medicine Geriatric Medicine
DX: M79.671 Pain in right foot (principal); M79.672 Pain in left foot
CPT/HCPCS: 36415; 73630; 85025

== ENCOUNTER → 2018-12-24 | Outpatient (CLI) | payer MEDICARE, BC, SELFPAY ==
[2018-10-09 14:12] VITALS: BMI 25.9
[2018-12-24 17:48] LABS: Absolute Lymphocyte Count 1.53 X10^3/uL (0.83-4.51); Absolute Neutrophil Count 8.4 X10^3/uL (2.0-7.7); Basophil# 0.07 X10^3/uL; Basophil% 0.6 % (0-1); Eosinophil# 0.16 X10^3/uL; Eosinophils% 1.4 % (0-5); Hematocrit 49.4 % (37-47); Hemoglobin 15.7 g/dL (12.0-15.0); Lymphocyte # 1.53 X10^3/ul (4.0); Lymphocyte % 13.6 % (19-41); Mean Corp Hgb Conc 31.8 g/dL (32-36); Mean Corpuscular Hgb 25.9 pg (27.0-32.0); Mean Corpuscular Volume 81.5 fL (81-99); Mean Platelet Vol. 9.5 fl (6.2-12.0); Monocyte# 1.03 X10^3/uL; Monocyte% 9.1 % (0-10); NRBC Flagged by Analyzer 0 % (0-5); Neutrophil # 8.42 X10^3/uL (2.7-7.7); Neutrophil % 74.9 % (47-70); Platelet Count 305 K/mm3 (150-450); RBC Distribution Width CV 17.4 % (11.6-14.6); RBC Distribution Width SD 48.7 fl (35.1-43.9); Red Blood Count 6.06 M/mm3 (4.2-5.4); White Blood Count 11.3 K/mm3 (4.4-11.0)
[2018-12-24 18:05] LABS: ALB/GLOB Ratio 1.1 RATIO (0.9-2.4); AST(SGOT) 17 U/L (15-37); Alanine Aminotransfer ALT/SGPT 25 U/L (13-56); Albumin, Serum 3.5 g/dL (3.2-5.0); Alkaline Phosphatase 106 U/L (45-117); Anion Gap 5 (5-15); BUN 15 mg/dL (7-18); BUN/Creat Ratio 18.9 RATIO (10-20); Calcium,Total 8.8 mg/dL (8.5-10.1); Chloride 99 mmol/L (98-107); Creatinine, Serum 0.79 mg/dL (0.55-1.02); EST Glomerular Filtration Rate 74 mL/min (>60); Est Glom Filt Rate - Afr Amer 90 mL/min (>60); Globulin 3.3 g/dL (2.2-4.2); Glucose 90 mg/dL (74-106); Potassium 3.7 mmol/L (3.5-5.1); Protein, Total 6.8 g/dL (6.4-8.2); Sodium Level 133 mmol/L (136-145); Thyroid Stim Hormone (TSH) 2.75 uIU/mL (0.358-3.74); Uric Acid 3.6 mg/dL (2.6-6.0)
[2018-12-24 18:08] LABS: Vitamin D,25 Hydroxy 22.7 ng/mL (29.95-100.01)
== END | disposition home or self-care (01) ==
LOC: POLAB3 14:11
PROVIDERS: Family Provider Family Medicine Geriatric Medicine; PCP Family Medicine Geriatric Medicine; Visit Provider Family Medicine Geriatric Medicine
DX: E55.9 Vitamin D deficiency, unspecified (principal); I10 Essential (primary) hypertension; M10.9 Gout, unspecified
CPT/HCPCS: 36415; 80053; 82306; 84443; 84550; 85025

== ENCOUNTER 2019-02-17 13:30 | Outpatient (RCR) | payer MEDICARE, BC, SELFPAY ==
[2018-06-26 08:07] VITALS: BMI 27.5
--- NOTE | 2018-09-24 16:03 | HP.PTEVAL_ITS ---
Patient's Visit Information STANLEY RODRIGUEZ is a 78 year old F referred to Physical Therapy by Melissa Oconnell MD with a diagnosis of BACK PAIN AND SHOULDER PAIN. Date of Evaluation: 09/24/18 Physical Therapist: Koko Solis PT, Cert MDT, OCS - Visit Plan Frequency: 2x /Week Duration: 4 Weeks Plan: PT INTERVENTIONS POSTURE EX'S,RTC/SCAPLAR STRENGTHENING,ROM,DLS ABD/BACK,MODALTIES PRN - Subjective Findings: This 78 y/o female presents to physical therapy with back and shoulder pain. Patient slipped and fell foward 8 months ago. Location L > R shoulder and symmtical lumbar . Patient didnt see Dr Suazo did x-rays tried cortizone injection. Patient then seen DR Masterson tried epdural injections lumbar x2. Patient had CAT SCAN due to pacemaker. Patient has had lumbar surgery 20 years. Patient denies parathesai/tingling. Bowel/bladder -. Coughig/sneezing -. Patient shoulder pain is global affects ADL's and activities above 90 and self hyginE . Aggravating factors lumbar walking,standing bending. Alleviating factors sitting. Patient pain in lumbar and shoulder affects ADL'S and housework tasks. Patient pain affects QOL and function. SOCIAL: . VOCATION: retired - Pain Left Scapula Pain Intensity (Out of 10): 4 Pain Intensity Range: 10 Bilateral Back Pain Intensity (Out of 10): 3 - Objective POSTURE: mild foward posture thoracic. NEURO: denies parathesia/tingling,reflexes L3-4,L4-5,L5-S1 1/3. GAIT: reciprocal pattern mild foard posture. PALAPTION: L-S. AROM:left shoulder flexion 130 degrees,130 abd in scapation ,ER 75 degrees,IR 60 pain at range,right shoulder flexion 160 flexion/abduction ER 80 degrres. PROM: SHOULDER flexion 160,abd 160 degrres ,ER 75 degrres. MMT: RTC 4/5,deltoid 4-/5. LUMBAR ROM: flexion min loss,extension mod loss,side glides mod loss. MMT: quads/hams 4/5,hip flexion 4-/5,ankle 4/5. FLEXABLITY: hams min tight - Special Tests L/S Slump test left side: Negative L/S Slump test right side: Negative L/S Left Straight Leg Raise: Negative L/S Right Straight Leg Raise: Negative L Shoulder External Rotation Lag Test - RC Tear: Negative L Shoulder Supine Impingement Test - RC Tear: Negative L Shoulder Lift Off Test - Subscapular Tear: Negative L Shoulder Drop Sign - IS Test: Negative L Shoulder Empty Can - SS: Negative L Shoulder Belly Press - SupScap: Negative L Shoulder Neer - Impingement: Positive L Shoulder [place] - Impingement: Positive - Goals Goal 1:: Independant for HEP. Goal Time Frame: 4-6 Weeks Goal 2:: Patient decrease pain left shoulder and lumbar pain by 50% or greater to improve function Goal Time Frame: 4-6 Weeks Goal 3:: Patient bto increase AROM left shoulder flexion symmtrical to right to improve function/ADL'S Goal Time Frame: 2-4 Weeks Goal 4:: Patient to improve lumbar ROM for function of recovery Goal Time Frame: 4-6 Weeks Goal 5:: Patient increase dash owestry by 5 points or > to improve QOL. Goal Time Frame: 4-6 Weeks - Rehabilitation Potential Physical Therapy Diagnosis: This patient feel many months ago with over period of time left [place] pain and lumbar pain presisted with decrease ROM ,strength left shoulder ,back pain ,decrease posture affects ADLS'a nd function Rehabilitation Potential: Good - Anticipated Interventions Patient/Client Instruction: Educate patient on: Condition, Plan of Care For the Purpose of:: To decrease pain, To increase ROM, To improve muscle performance and motor function, To improve ability to perform ADL's, To increase tolerance to activity/condition/position, To improve ability of physical actions for home/community/work/leisure, To improve health of tissue, To decrease soft tissue restriction, To increase flexibility/ROM, To improve ability to perform tasks related to life management Therapeutic Exercise to Include: Strength training, Postural training, Flexibilty training, Dynamic Lumbar Stabilization, Scapular Strength/Stabilization Comment: RTC For the Purpose of:: To decrease pain, To increase ROM, To improve muscle performance and motor function, To improve ability to perform ADL's, To increase tolerance to activity/condition/position, To improve health of tissue, To decrease soft tissue restriction, To increase flexibility/ROM, To improve ability to perform tasks related to life management TENS: Yes IF ES: Yes Cryotherapy (ice pack, ice massage): Yes Thermo therapy (hot pack): Yes Ultrasound (thermal/non thermal): Yes For the Purpose of:: To decrease pain, To increase ROM, To improve nutrient delivery to tissue, To increase oxygenation perfusion, To improve health of ti ssue, To decrease soft tissue restriction Thank you for the opportunity to evaluate your patient. For Medicare and Medicare HMO plans, please review the plan of care and approve it. It will need to be FAXED BACK to us at [phone] for Medicare purposes. For Medicare only, by signing this I certify the plan of care. Please let me know if there are questions or concerns regarding this plan of care. Physician Signature: Date:
--- NOTE | 2018-10-29 14:32 | HP.PTREVAL_ITS ---
Melissa Oconnell MD, It has been my pleasure to treat STANLEY RODRIGUEZ over the last 9 visits for BACK PAIN AND SHOULDER PAIN. Please see the progress note below for an update on the physical therapy plan of care! Subjective: Doing okay .Exercises at home. Pain is back better. Shoulder is getting better [place] but reaching back Objective/Function: POSTURE: rounded. GAIT:receprocal pattetrn mild foward. LUMBAR ROM: flexion WFL,exyension mod loss,side glides mid loss. MMT: quads/hams 4/5,hip flexion 4-/5. AROM:shoulder flexion 132 degrees,ER 78 DEGREES,140 in scapular ,IR T9. MMT: RTC 4/5 supraspinatous 4-/5,deltoid 3+/5 Plan Plan: PRECAUTION: pacemaker ( estim). PT INTERVENTIONS 1-2XWK FOR 4WKS POSTURE EX'S,RTC/SCAPLAR STRENGTHENING,ROM,DLS ABD/BACK,MODALTIES -US /P Goals Goal 1:: Independant for HEP. Goal Time Frame: 4-6 Weeks Goal Progress: Progressing Goal 2:: Patient decrease pain left shoulder and lumbar pain by 50% or greater to improve function Goal Time Frame: 4-6 Weeks Goal Progress: Progressing Goal 3:: Patient bto increase AROM left shoulder flexion symmtrical to right to improve function/ADL'S Goal Time Frame: 2-4 Weeks Goal Progress: Progressing Goal 4:: Patient to improve lumbar ROM for function of recovery Goal Time Frame: 4-6 Weeks Goal Progress: Progressing Goal 5:: Patient increase dash owestry by 5 points or > to improve QOL. Goal Time Frame: 4-6 Weeks Goal Progress: Progressing Anticipated Interventions Patient/Client Instruction: Educate patient on: Condition, Plan of Care For the Purpose of:: To decrease pain, To increase ROM, To improve muscle performance and motor function, To improve ability to perform ADL's, To increase tolerance to activity/condition/position, To improve ability of physical actions for home/community/work/leisure, To improve health of tissue, To decrease soft tissue restriction, To increase flexibility/ROM, To improve ability to perform tasks related to life management Therapeutic Exercise to Include: Strength training, Postural training, Flexibilty training, Dynamic Lumbar Stabilization, Scapular Strength/Stabilization Comment: RTC For the Purpose of:: To decrease pain, To increase ROM, To improve muscle performance and motor function, To improve ability to perform ADL's, To increase tolerance to activity/condition/position, To improve health of tissue, To decrea se soft tissue restriction, To increase flexibility/ROM, To improve ability to perform tasks related to life management TENS: Yes IF ES: Yes Cryotherapy (ice pack, ice massage): Yes Thermo therapy (hot pack): Yes Ultrasound (thermal/non thermal): Yes For the Purpose of:: To decrease pain, To increase ROM, To improve nutrient delivery to tissue, To increase oxygenation perfusion, To improve health of tissue, To decrease soft tissue restriction Please do not hesitate to contact me at [phone] by phone or if you have questions or concerns regarding this new plan of care! Sincerely, Koko Solis, PT, Cert MDT, OCS
--- NOTE | 2019-01-16 14:59 | HP.PTREVAL ---
Melissa Oconnell MD, It has been my pleasure to treat STANLEY RODRIGUEZ over the last 17 visits for BACK PAIN AND SHOULDER PAIN. Please see the progress note below for an update on the physical therapy plan of care! Subjective: Doing okay better in back ,shoulder improve with ROM Objective/Function: POSTURE: mild thoracic kyphosis. GAIT: reciprocal pattern mild foward posture. NEURO: denies parathesia/tingling,redlexes intact. PALPATION: unremarkable. MMT: quads/hams 4/5,4/5 hip flexion ,ankle 4/5. RTC 4/5 DELTOID 4-/5,ANTERIOR 4-/5,LATERAL 3+/5 soreness. AROM: shoulder flexion,abd in scapation 130 degrees Plan Plan: PRECAUTION: pacemaker ( estim). PT INTERVENTIONS 1-XWK FOR 4WKS POSTURE EX'S,RTC/SCAPLAR STRENGTHENING,ROM,DLS ABD/BACK,MODALTIES -US /P Goals Goal 1:: Independant for HEP. Goal Time Frame: 4-6 Weeks Goal Progress: Progressing Goal 2:: Patient decrease pain left shoulder and lumbar pain by 60% or greater to improve function Goal Time Frame: 4-6 Weeks Goal Progress: Progressing Goal 3:: Patient to increase AROM left shoulder flexion symmtrical to right to improve function/ADL'S Goal Time Frame: 4-6 Weeks Goal Progress: Progressing Goal 4:: Patient to improve lumbar ROM for function of recovery Goal Time Frame: 4-6 Weeks Goal Progress: Progressing Goal 5:: Patient increase dash owestry by 5 points or > to improve QOL. Goal Time Frame: 4-6 Weeks Goal Progress: Progressing Anticipated Interventions Patient/Client Instruction: Educate patient on: Condition, Plan of Care For the Purpose of:: To decrease pain, To increase ROM, To improve muscle performance and motor function, To improve ability to perform ADL's, To increase tolerance to activity/condition/position, To improve ability of physical actions for home/community/work/leisure, To improve health of tissue, To decrease soft tissue restriction, To increase flexibility/ROM, To improve ability to perform tasks related to life management Therapeutic Exercise to Include: Strength training, Postural training, Flexibilty training, Dynamic Lumbar Stabilization, Scapular Strength/Stabilization Comment: RTC For the Purpose of:: To decrease pain, To increase ROM, To improve muscle performance and motor function, To improve ability to perform ADL's, To increase tolerance to activity/condition/position, To improve health of tissue, To decrease soft tissue restriction, To increase flexibility/ROM, To improve ability to perform tasks related to life management TENS: Yes IF ES: Yes Cryotherapy (ice pack, ice massage): Yes Thermo therapy (hot pack): Yes Ultrasound (thermal/non thermal): Yes For the Purpose of:: To decrease pain, To increase ROM, To improve nutrient delivery to tissue, To increase oxygenation perfusion, To improve health of tissue, To decrease soft tissue restriction Please do not hesitate to contact me at [phone] by phone or if you have questions or concerns regarding this new plan of care! Sincerely, Koko Solis, PT, Cert MDT, OCS
--- NOTE | 2019-02-17 14:16 | HP.PTDCSUM ---
HP - PT D/C Summary It has been my pleasure to treat STANLEY RODRIGUEZ under orders from Melissa Oconnell MD, for the diagnosis of BACK PAIN AND SHOULDER PAIN for a total of 21 visit(s). Discharge Date: 02/17/19 Please see the following information for a summary of their discharge status. - Subjective Subjective: Doing okay but I have more back pain today . Shoulder seems better. 2 days ago developed increase lumbar pain . - Pain Left Scapula Pain Intensity (Out of 10): 0 Bilateral Back Pain Intensity (Out of 10): 5 - Overall Improvement % Improvement: 50 - Objective Objective/Function: POSTURE: mild foward posture. GAIT: reciprocal pattern. PALPATION: unremarkable. AROM: shoulder flexion 130 degrees,abd 120mdegrees scapation,. MMT: 4/5 deltoid RTC 4-/5. LUMBAR ROM: flexion min loss,extension mod ,side glides mod loss. MMT: QUADS/HAMS 4/5,4-/5 HIP - Goals Goal 1:: Independant for HEP. Goal Progress: Goal Met Goal 2:: Patient decrease pain left shoulder and lumbar pain by 60% or greater to improve function Goal Progress: Progressing Goal 3:: Patient to increase AROM left shoulder flexion symmtrical to right to improve function/ADL'S Goal Progress: Progressing Goal 4:: Patient to improve lumbar ROM for function of recovery Goal Progress: Progressing Goal 5:: Patient increase dash owestry by 5 points or > to improve QOL. Goal Progress: Progressing - Plan Plan: D/C TO HEP - D/C Information Discharge Comments: HEP If there are questions or concerns regarding this patient's physical therapy, please feel free to call me at [phone]. Thank you for the referral of this patient. Sincerely, Koko Solis, PT, Cert MDT, OCS
== END 2019-02-17 19:00 | disposition home or self-care (01) ==
LOC: PT 13:30
PROVIDERS: Family Provider Family Medicine Geriatric Medicine; PCP Family Medicine Geriatric Medicine; Referring Provider Anesthesiology Pain Medicine; Visit Provider Anesthesiology Pain Medicine
DX: M54.9 Dorsalgia, unspecified (principal); M25.519 Pain in unspecified shoulder
CPT/HCPCS: 97110; 97162; 97530

== ENCOUNTER → 2019-06-24 15:52 | Outpatient (CLI) | payer MEDICARE, BC, SELFPAY ==
[2019-05-01 12:50] VITALS: BMI 25.9
[2019-06-24 16:53] LABS: Absolute Lymphocyte Count 1.68 X10^3/uL (0.83-4.51); Absolute Neutrophil Count 7.1 X10^3/uL (2.0-7.7); Basophil# 0.09 X10^3/uL; Basophil% 0.9 % (0-1); Hematocrit 50.3 % (37-47); Hemoglobin 16.3 g/dL (12.0-15.0); Lymphocyte # 1.68 X10^3/ul (4.0); Lymphocyte % 16.6 % (19-41); Mean Corp Hgb Conc 32.4 g/dL (32-36); Mean Corpuscular Hgb 26.4 pg (27.0-32.0); Mean Corpuscular Volume 81.4 fL (81-99); Mean Platelet Vol. 9.7 fl (6.2-12.0); Monocyte# 0.98 X10^3/uL; Monocyte% 9.7 % (0-10); NRBC Flagged by Analyzer 0 % (0-5); Neutrophil # 7.09 X10^3/uL (2.7-7.7); Neutrophil % 70.1 % (47-70); Platelet Count 339 K/mm3 (150-450); RBC Distribution Width CV 17.8 % (11.6-14.6); RBC Distribution Width SD 48.6 fl (35.1-43.9); Red Blood Count 6.18 M/mm3 (4.2-5.4); White Blood Count 10.1 K/mm3 (4.4-11.0)
[2019-06-24 17:19] LABS: Vitamin D,25 Hydroxy 26.8 ng/mL
[2019-06-24 17:29] LABS: ALB/GLOB Ratio 1.2 RATIO (0.9-2.4); AST(SGOT) 25 U/L (15-37); Alanine Aminotransfer ALT/SGPT 28 U/L (13-56); Alkaline Phosphatase 115 U/L (45-117); Anion Gap 6 (5-15); BUN 15 mg/dL (7-18); BUN/Creat Ratio 20.1 RATIO (10-20); Calcium,Total 9.2 mg/dL (8.5-10.1); Chloride 96 mmol/L (98-107); Creatinine, Serum 0.75 mg/dL (0.55-1.02); EST Glomerular Filtration Rate 79 mL/min (>60); Est Glom Filt Rate - Afr Amer 96 mL/min (>60); Globulin 3.4 g/dL (2.2-4.2); Glucose 99 mg/dL (74-106); Potassium 3.6 mmol/L (3.5-5.1); Protein, Total 7.4 g/dL (6.4-8.2); Sodium Level 132 mmol/L (136-145); Thyroid Stim Hormone (TSH) 2.91 uIU/mL (0.358-3.74)
== END ==
LOC: LAB.FUTURE 15:54 → LAB 15:56
PROVIDERS: PCP Family Medicine Geriatric Medicine; Referring Provider Family Medicine Geriatric Medicine; Visit Provider Family Medicine Geriatric Medicine
DX: I10 Essential (primary) hypertension (principal); E55.9 Vitamin D deficiency, unspecified
CPT/HCPCS: 36415; 80053; 82306; 84443; 85025

== ENCOUNTER → 2019-12-29 14:11 | Outpatient (CLI) | payer MEDICARE, BC, SELFPAY ==
[2019-07-31 14:00] VITALS: BMI 25.5
[2019-12-29 16:59] LABS: Absolute Lymphocyte Count 1.71 X10^3/uL (0.83-4.51); Absolute Neutrophil Count 8.9 X10^3/uL (2.0-7.7); Basophil# 0.07 X10^3/uL; Basophil% 0.6 % (0-1); Eosinophil# 0.05 X10^3/uL; Eosinophils% 0.4 % (0-5); Hematocrit 50.1 % (37-47); Lymphocyte # 1.71 X10^3/ul (4.0); Lymphocyte % 14.6 % (19-41); Mean Corp Hgb Conc 31.9 g/dL (32-36); Mean Corpuscular Hgb 27.2 pg (27.0-32.0); Mean Corpuscular Volume 85.1 fL (81-99); Mean Platelet Vol. 9.5 fl (6.2-12.0); Monocyte# 0.95 X10^3/uL; Monocyte% 8.1 % (0-10); NRBC Flagged by Analyzer 0 % (0-5); Neutrophil # 8.87 X10^3/uL (2.7-7.7); Neutrophil % 75.5 % (47-70); Platelet Count 363 K/mm3 (150-450); RBC Distribution Width CV 16.6 % (11.6-14.6); RBC Distribution Width SD 51.8 fl (35.1-43.9); Red Blood Count 5.89 M/mm3 (4.2-5.4); White Blood Count 11.7 K/mm3 (4.4-11.0)
[2019-12-29 17:20] LABS: AST(SGOT) 16 U/L (15-37); Alanine Aminotransfer ALT/SGPT 28 U/L (13-56); Albumin, Serum 3.5 g/dL (3.2-5.0); Alkaline Phosphatase 101 U/L (45-117); Anion Gap 7 (5-15); BUN 18 mg/dL (7-18); BUN/Creat Ratio 21.1 RATIO (10-20); Calcium,Total 8.9 mg/dL (8.5-10.1); Chloride 98 mmol/L (98-107); Creatinine, Serum 0.85 mg/dL (0.55-1.02); EST Glomerular Filtration Rate 68 mL/min (>60); Est Glom Filt Rate - Afr Amer 82 mL/min (>60); Globulin 3.5 g/dL (2.2-4.2); Glucose 95 mg/dL (74-106); Potassium 3.2 mmol/L (3.5-5.1); Sodium Level 134 mmol/L (136-145); Thyroid Stim Hormone (TSH) 2.59 uIU/mL (0.358-3.74)
== END ==
PROVIDERS: PCP Family Medicine Geriatric Medicine; Visit Provider Family Medicine Geriatric Medicine
DX: I10 Essential (primary) hypertension (principal); E55.9 Vitamin D deficiency, unspecified
CPT/HCPCS: 36415; 80053; 82306; 84443; 85025

== ENCOUNTER → 2020-01-09 11:31 | Outpatient (CLI) | payer MEDICARE, BC, SELFPAY ==
[2019-07-31 14:00] VITALS: BMI 25.5
[2020-01-09 12:49] LABS: Anion Gap 9 (5-15); BUN 11 mg/dL (7-18); Calcium,Total 8.9 mg/dL (8.5-10.1); Chloride 96 mmol/L (98-107); Creatinine, Serum 0.79 mg/dL (0.55-1.02); EST Glomerular Filtration Rate 75 mL/min (>60); Est Glom Filt Rate - Afr Amer 91 mL/min (>60); Glucose 101 mg/dL (74-106); Potassium 3.5 mmol/L (3.5-5.1); Sodium Level 132 mmol/L (136-145)
== END ==
PROVIDERS: PCP Family Medicine Geriatric Medicine; Visit Provider Family Medicine Geriatric Medicine
DX: E87.6 Hypokalemia (principal)
CPT/HCPCS: 36415; 80048

== ENCOUNTER → 2020-03-01 13:50 | Outpatient (CLI) | payer MEDICARE, BC, SELFPAY ==
[2019-07-31 14:00] VITALS: BMI 25.5
[2020-02-25 11:41] VITALS: BMI 25.5
--- NOTE | 2020-03-01 13:53 | CT_ITS ---
STUDY: CT CERVICAL SPINE WITHOUT CONTRAST REASON FOR EXAM: Female, 79 years old. NECK PAIN, HX-HTN, BLADDER CA, HAS DEFIBRILLATOR RADIATION DOSAGE (If Supplied By Facility): CTDIvol = ( 13.85 ) mGy, DLP = ( 260.29 ) mGycm TECHNIQUE: High resolution transaxial imaging was performed without contrast material. Sagittal and coronal images were reconstructed. Individualized dose optimization techniques were used for this CT. COMPARISON: None FINDINGS: Normal craniovertebral junction. There are degenerative changes of the anterior atlantoaxial articulation. There is an unfused odontoid process. There is straightening of the normal cervical lordosis. No acute fracture or compression deformity is present. C2-3: Normal endplates. Mild disc space narrowing and minimal annular bulging. Minimal anterolisthesis of C2 on C3 of 2 to 3 mm. Normal central canal and intervertebral neuroforamina. C3-4: Normal endplates. Minimal anterolisthesis of C3 on C4 of less than 2 mm. Mild to moderate disc space narrowing. Normal central canal and intervertebral neuroforamina. Moderate to significant lateral facet joint hypertrophy. C4-5: Mild posterior disc space narrowing. Anterior endplate osteophytes are present. Normal central canal. Severe left foraminal stenosis with nerve root compression is present secondary to significant facet joint hypertrophy and uncovertebral hypertrophy. Normal right neural foramen. C5-6: Moderate disc space narrowing with a diffuse disc osteophyte complex. Normal central canal. Moderate left foraminal stenosis with nerve root compression due to uncovertebral facet joint hypertrophy. Mild right foraminal stenosis without nerve root compression. C6-7: Moderate disc space narrowing with a diffuse disc osteophyte complex. Normal central canal and intervertebral neuroforamina. C7-T1: Normal endplates. Minimal anterolisthesis of C7 on T1 of less than 2 mm. Mild to moderate disc space narrowing. Normal central canal and intervertebral neuroforamina. Normal visualized soft tissue structures. Paraseptal cystic changes are seen in the lung apices. CT/Spine Cervical without Contras IMPRESSION: 1. Multilevel degenerative changes, as described above. 2. Largest severe foraminal stenosis with nerve root compression at C4-C5 and C5-C6. Electronically Signed: Gavin Mullins MD at 11:40 EST , Service support ,
== END ==
PROVIDERS: PCP Family Medicine Geriatric Medicine; Referring Provider Family Medicine Geriatric Medicine; Visit Provider Family Medicine Geriatric Medicine
DX: M54.2 Cervicalgia (principal)
CPT/HCPCS: 72125

== ENCOUNTER → 2020-03-31 16:07 | Outpatient (CLI) | payer MEDICARE, BC, SELFPAY ==
[2020-03-31 14:51] VITALS: BMI 25.6
--- NOTE | 2020-03-31 16:23 | RAD_ITS ---
STUDY: X-RAY CHEST REASON FOR EXAM: Female, 79 years old. AMIODARONE therapy. History of atrial fibrillation and tachycardia. TECHNIQUE: PA and lateral views of the chest. COMPARISON: 10/04/2017. FINDINGS: The lungs are clear and expanded. There is no demonstrated pleural abnormality. Normal size heart. Normal stable cardiac pacemaker/ICD. Mediastinum and wili. Normal visualized pulmonary arteries. There is atherosclerotic calcification of the aortic arch with tortuosity. There are degenerative changes of the thoracic spine with mild levoscoliosis. Normal visualized ribs, clavicles, and shoulders. There is no demonstrated abnormality of the visualized soft tissue structures of the upper abdomen. RAD/Chest PA and Lateral IMPRESSION: 1. No evidence of acute pulmonary disease. 2. Stable cardiac pacemaker. Electronically Signed: Yair Serrano DO at 16:53 EST Tel [phone], Service support ,
== END ==
PROVIDERS: PCP Family Medicine Geriatric Medicine; Referring Provider Internal Medicine Cardiovascular Disease; Visit Provider Internal Medicine Cardiovascular Disease
DX: I25.10 Atherosclerotic heart disease of native coronary artery without angina pectoris (principal); E78.5 Hyperlipidemia, unspecified; I25.5 Ischemic cardiomyopathy; I47.2 Ventricular tachycardia; I48.0 Paroxysmal atrial fibrillation; Z79.899 Other long term (current) drug therapy; Z95.5 Presence of coronary angioplasty implant and graft; Z95.810 Presence of automatic (implantable) cardiac defibrillator
CPT/HCPCS: 71046

== ENCOUNTER → 2020-07-07 14:58 | Outpatient (CLI) | payer MEDICARE, BC, SELFPAY ==
[2020-03-31 14:51] VITALS: BMI 25.6
[2020-07-07 17:03] LABS: Absolute Lymphocyte Count 1.37 X10^3/uL (0.83-4.51); Absolute Neutrophil Count 11.7 X10^3/uL (2.0-7.7); Basophil# 0.07 X10^3/uL; Basophil% 0.5 % (0-1); Eosinophil# 0.05 X10^3/uL; Eosinophils% 0.3 % (0-5); Hematocrit 48.3 % (37-47); Hemoglobin 15.5 g/dL (12.0-15.0); Lymphocyte # 1.37 X10^3/ul (0.83-4.51); Lymphocyte % 9.4 % (19-41); Mean Corp Hgb Conc 32.1 g/dL (32-36); Mean Corpuscular Hgb 25.8 pg (27.0-32.0); Mean Corpuscular Volume 80.4 fL (81-99); Mean Platelet Vol. 9.9 fl (6.2-12.0); Monocyte# 1.34 X10^3/uL; Monocyte% 9.2 % (0-10); NRBC Flagged by Analyzer 0 % (0-5); Neutrophil # 11.65 X10^3/uL (2.7-7.7); Neutrophil % 79.9 % (47-70); Platelet Count 328 K/mm3 (150-450); RBC Distribution Width CV 17.3 % (11.6-14.6); RBC Distribution Width SD 47.2 fl (35.1-43.9); Red Blood Count 6.01 M/mm3 (4.2-5.4); White Blood Count 14.6 K/mm3 (4.4-11.0)
[2020-07-07 17:25] LABS: Vitamin D,25 Hydroxy 25.9 ng/mL
[2020-07-07 17:29] LABS: ALB/GLOB Ratio 0.9 RATIO (0.9-2.4); AST(SGOT) 19 U/L (15-37); Alanine Aminotransfer ALT/SGPT 29 U/L (13-56); Albumin, Serum 3.3 g/dL (3.2-5.0); Alkaline Phosphatase 97 U/L (45-117); Anion Gap 9 (5-15); BUN 18 mg/dL (7-18); BUN/Creat Ratio 24.3 RATIO (10-20); Chloride 100 mmol/L (98-107); Creatinine, Serum 0.74 mg/dL (0.55-1.02); EST Glomerular Filtration Rate 80 mL/min (>60); Est Glom Filt Rate - Afr Amer 97 mL/min (>60); Globulin 3.5 g/dL (2.2-4.2); Glucose 82 mg/dL (74-106); Potassium 3.7 mmol/L (3.5-5.1); Protein, Total 6.8 g/dL (6.4-8.2); Sodium Level 135 mmol/L (136-145); Uric Acid 3.9 mg/dL (2.6-6.0)
== END ==
PROVIDERS: PCP Family Medicine Geriatric Medicine; Visit Provider Family Medicine Geriatric Medicine
DX: E55.9 Vitamin D deficiency, unspecified (principal); I10 Essential (primary) hypertension; M10.9 Gout, unspecified
CPT/HCPCS: 36415; 80053; 82306; 84443; 84550; 85025

== ENCOUNTER → 2021-01-10 14:40 | Outpatient (CLI) | payer MEDICARE, BC, SELFPAY ==
[2021-01-10 17:45] LABS: Absolute Lymphocyte Count 1.18 X10^3/uL (0.83-4.51); Absolute Neutrophil Count 14.1 X10^3/uL (2.0-7.7); Basophil# 0.09 X10^3/uL; Basophil% 0.5 % (0-1); Eosinophil# 0.03 X10^3/uL; Eosinophils% 0.2 % (0-5); Hematocrit 46.7 % (37-47); Hemoglobin 15.2 g/dL (12.0-15.0); Lymphocyte # 1.18 X10^3/ul (0.83-4.51); Lymphocyte % 7.1 % (19-41); Mean Corp Hgb Conc 32.5 g/dL (32-36); Mean Platelet Vol. 9.7 fl (6.2-12.0); Monocyte# 0.81 X10^3/uL; Monocyte% 4.9 % (0-10); NRBC Flagged by Analyzer 0 % (0-5); Neutrophil # 14.11 X10^3/uL (2.7-7.7); Neutrophil % 85.5 % (47-70); Platelet Count 401 K/mm3 (150-450); RBC Distribution Width CV 17.8 % (11.6-14.6); Red Blood Count 5.84 M/mm3 (4.2-5.4); White Blood Count 16.5 K/mm3 (4.4-11.0)
[2021-01-10 18:35] LABS: Vitamin D,25 Hydroxy 20.1 ng/mL
[2021-01-10 18:49] LABS: AST(SGOT) 20 U/L (15-37); Alanine Aminotransfer ALT/SGPT 29 U/L (13-56); Albumin, Serum 3.4 g/dL (3.2-5.0); Alkaline Phosphatase 85 U/L (45-117); Anion Gap 8 (5-15); BUN 22 mg/dL (7-18); BUN/Creat Ratio 24.9 RATIO (10-20); Calcium,Total 9.3 mg/dL (8.5-10.1); Chloride 95 mmol/L (98-107); Creatinine, Serum 0.88 mg/dL (0.55-1.02); EST Glomerular Filtration Rate 65 mL/min (>60); Est Glom Filt Rate - Afr Amer 79 mL/min (>60); Globulin 3.4 g/dL (2.2-4.2); Glucose 100 mg/dL (74-106); Potassium 3.6 mmol/L (3.5-5.1); Protein, Total 6.8 g/dL (6.4-8.2); Sodium Level 130 mmol/L (136-145); Thyroid Stim Hormone (TSH) 2.62 uIU/mL (0.358-3.74)
== END ==
PROVIDERS: PCP Family Medicine Geriatric Medicine; Visit Provider Family Medicine Geriatric Medicine
DX: I10 Essential (primary) hypertension (principal); E55.9 Vitamin D deficiency, unspecified
CPT/HCPCS: 36415; 80053; 82306; 84443; 85025

== ENCOUNTER → 2021-01-13 14:09 | Outpatient (CLI) | payer MEDICARE, BC, SELFPAY ==
[2021-01-13 18:50] LABS: Urine Sodium 41 mmol/L (Not Establ.)
[2021-01-13 21:24] LABS: Osmolality, Serum 273 mOsm/KG (280-301)
[2021-01-13 21:25] LABS: Osmolality, Urine 493 mOsm/KG
== END ==
PROVIDERS: PCP Family Medicine Geriatric Medicine; Visit Provider Family Medicine Geriatric Medicine
DX: E87.1 Hypo-osmolality and hyponatremia (principal)
CPT/HCPCS: 36415; 83930; 83935; 84300

== ENCOUNTER → 2021-07-12 | Outpatient (CLI) | payer MEDICARE, BC, SELFPAY ==
[2021-07-12 17:42] LABS: Absolute Lymphocyte Count 1.84 X10^3/uL (0.83-4.51); Absolute Neutrophil Count 7.7 X10^3/uL (2.0-7.7); Basophil% 0.9 % (0-1); Eosinophil# 0.34 X10^3/uL; Hematocrit 48.2 % (37-47); Hemoglobin 15.2 g/dL (12.0-15.0); Lymphocyte # 1.84 X10^3/ul (0.83-4.51); Lymphocyte % 16.5 % (19-41); Mean Corp Hgb Conc 31.5 g/dL (32-36); Mean Corpuscular Hgb 25.6 pg (27.0-32.0); Mean Corpuscular Volume 81.3 fL (81-99); Mean Platelet Vol. 9.8 fl (6.2-12.0); Monocyte# 1.09 X10^3/uL; Monocyte% 9.8 % (0-10); NRBC Flagged by Analyzer 0 % (0-5); Neutrophil # 7.73 X10^3/uL (2.7-7.7); Neutrophil % 69.4 % (47-70); Platelet Count 352 K/mm3 (150-450); RBC Distribution Width CV 16.3 % (11.6-14.6); RBC Distribution Width SD 47.7 fl (35.1-43.9); Red Blood Count 5.93 M/mm3 (4.2-5.4); White Blood Count 11.2 K/mm3 (4.4-11.0)
[2021-07-12 18:30] LABS: Vitamin D,25 Hydroxy 29.5 ng/mL
[2021-07-12 19:07] LABS: AST(SGOT) 20 U/L (15-37); Alanine Aminotransfer ALT/SGPT 23 U/L (13-56); Albumin, Serum 3.6 g/dL (3.2-5.0); Alkaline Phosphatase 102 U/L (45-117); Anion Gap 7 (5-15); BUN 20 mg/dL (7-18); BUN/Creat Ratio 19.8 RATIO (10-20); Calcium,Total 9.3 mg/dL (8.5-10.1); Chloride 100 mmol/L (98-107); Creatinine, Serum 1.01 mg/dL (0.55-1.02); EST Glomerular Filtration Rate 56 mL/min (>60); Est Glom Filt Rate - Afr Amer 68 mL/min (>60); Globulin 3.6 g/dL (2.2-4.2); Glucose 87 mg/dL (74-106); Potassium 3.6 mmol/L (3.5-5.1); Protein, Total 7.2 g/dL (6.4-8.2); Sodium Level 135 mmol/L (136-145); Thyroid Stim Hormone (TSH) 4.28 uIU/mL (0.358-3.74)
== END | disposition home or self-care (01) ==
LOC: POLAB3 14:06
PROVIDERS: PCP Family Medicine Geriatric Medicine; Visit Provider Family Medicine Geriatric Medicine
DX: I10 Essential (primary) hypertension (principal); M10.9 Gout, unspecified; E55.9 Vitamin D deficiency, unspecified
CPT/HCPCS: 36415; 80053; 82306; 84443; 84550; 85025

== ENCOUNTER → 2021-10-26 | Outpatient (CLI) | payer MEDICARE, BC, SELFPAY ==
--- NOTE | 2021-10-26 14:36 | RAD_ITS ---
STUDY: X-RAY XR Forearm 2 Views REASON FOR EXAM: Female, 81 years old. PAIN TECHNIQUE: XR Forearm 2 Views RIGHT COMPARISON: None. FINDINGS: There is no demonstrated soft tissue swelling. Normal visualized radius. Normal visualized ulna. RAD/Forearm 2 Views IMPRESSION: Normal x-ray examination of the radius and ulna. Electronically Signed: Geronimo Hernández MD at 16:59 EDT ,
--- NOTE | 2021-10-26 14:40 | RAD_ITS ---
STUDY: XR Wrist Min 3 Views REASON FOR EXAM: Female, 81 years old. PAIN IN RT WRIST TECHNIQUE: XR Wrist Min 3 Views RIGHT COMPARISON: 12.3.17 FINDINGS: There are no acute findings of the visualized distal radius and ulna. There are no acute findings of the radiocarpal articulation. Normal distal radioulnar articulation. Normal carpal bones. Normal carpal articulations. There are no acute findings of the carpometacarpal articulation of the thumb. Normal second through fifth carpometacarpal articulations. There are no acute findings of the visualized metacarpal bones. The soft tissue structures are unremarkable. RAD/Wrist min 3 Views IMPRESSION: There are no acute findings of the wrist. Electronically Signed: Geronimo Hernández MD at 17:11 EDT ,
[2021-10-26 16:37] LABS: Absolute Lymphocyte Count 1.41 X10^3/uL (0.83-4.51); Basophil# 0.07 X10^3/uL; Basophil% 0.5 % (0-1); Eosinophil# 0.14 X10^3/uL; Hematocrit 46.9 % (37-47); Hemoglobin 15.4 g/dL (12.0-15.0); Lymphocyte # 1.41 X10^3/ul (0.83-4.51); Lymphocyte % 10.2 % (19-41); Mean Corp Hgb Conc 32.8 g/dL (32-36); Mean Corpuscular Hgb 26.8 pg (27.0-32.0); Mean Corpuscular Volume 81.6 fL (81-99); Mean Platelet Vol. 10.2 fl (6.2-12.0); Monocyte# 1.12 X10^3/uL; Monocyte% 8.1 % (0-10); NRBC Flagged by Analyzer 0 % (0-5); Neutrophil % 79.7 % (47-70); Platelet Count 291 K/mm3 (150-450); RBC Distribution Width CV 17.3 % (11.6-14.6); RBC Distribution Width SD 49.3 fl (35.1-43.9); Red Blood Count 5.75 M/mm3 (4.2-5.4); White Blood Count 13.8 K/mm3 (4.4-11.0)
[2021-10-26 16:46] LABS: Erythrocyte Sedimentation Rate 28 mm/hr (0-30)
[2021-10-26 16:58] LABS: Anion Gap 8 (5-15); BUN 14 mg/dL (7-18); BUN/Creat Ratio 16.1 RATIO (10-20); Calcium,Total 9.2 mg/dL (8.5-10.1); Chloride 99 mmol/L (98-107); Creatinine, Serum 0.87 mg/dL (0.55-1.02); EST Glomerular Filtration Rate 66 mL/min (>60); Est Glom Filt Rate - Afr Amer 80 mL/min (>60); Glucose 127 mg/dL (74-106); Potassium 3.8 mmol/L (3.5-5.1); Sodium Level 133 mmol/L (136-145); Uric Acid 3.9 mg/dL (2.6-6.0)
== END | disposition home or self-care (01) ==
LOC: POLAB3 14:16 → RAD 14:31
PROVIDERS: PCP Family Medicine Geriatric Medicine; Visit Provider Family Medicine Geriatric Medicine
DX: M25.531 Pain in right wrist (principal); M10.9 Gout, unspecified
CPT/HCPCS: 36415; 73090; 73110; 80048; 84550; 85025; 85652; 86140

== ENCOUNTER → 2021-12-06 | Outpatient (CLI) | payer MEDICARE, BC, SELFPAY ==
--- NOTE | 2021-12-06 16:36 | CT_ITS ---
STUDY: CT BRAIN WITH AND WITHOUT CONTRAST REASON FOR EXAM: Female, 81 years old. VISUAL DISTURBANCES RADIATION DOSAGE (If Supplied By Facility): CTDIvol = ( 44.99 ) mGy, DLP = ( 1558.48 ) mGycm TECHNIQUE: Transaxial CT imaging of the brain was performed pre and post contrast administration. The examination was performed with intravenous administration of 100mL Isovue-370. Individualized dose optimization techniques were used for this CT. COMPARISON: None. FINDINGS: Normal soft tissue structures. There is orbital lens replacement. Normal calvarium. There is mild cerebral atrophy with widening of the extra-axial spaces and ventricular dilatation. There are areas of decreased attenuation within the white matter tracts of the supratentorial brain, consistent with microvascular disease changes. Normal basal ganglia and thalami. Normal brainstem. Normal cerebellum. There is no intracranial hemorrhage. There are no findings of an acute ischemic infarction. Normal visualized paranasal sinuses. There is no abnormal enhancement. CT/Brain/Head W/WO Contrast IMPRESSION: Chronic involutional changes of the brain. Electronically Signed: Carlos Issa MD at 18:23 EDT ,
--- NOTE | 2021-12-06 16:38 | CT_ITS ---
ACR Level 3 findings have been noted. An addendum which confirms receipt of the report will follow. STUDY: CTA HEAD AND NECK WITH CONTRAST REASON FOR EXAM: Female, 81 years old. VISUAL DISTURBANCE RADIATION DOSAGE (If Supplied By Facility): CTDIvol = ( 8.21 ) mGy, DLP = ( 200.87 ) mGycm TECHNIQUE: CT angiography was performed with a multi-detector CT scanner. Data acquisition was obtained from the skull base through the vertex following intravenous administration of 100mL Isovue-370. MIP images were reconstructed from the axial data set. Post-processing of the angiographic images was performed, with multiplanar reformation and 3D reconstruction. Individualized dose optimization techniques were used for this CT. COMPARISON: No relevant priors. FINDINGS: Normal bilateral petrous carotid arteries. 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 Normal left cavernous carotid artery with a normal supraclinoid bifurcation. Normal right A1 segments of the anterior cerebral artery. Normal left A1 segments of the anterior cerebral artery. Normal intact anterior communicating artery (ACOM). Normal bilateral A2 segments of the anterior cerebral arteries. Normal right M1 and M2 segments of the middle cerebral arteries, with a normal M1 bifurcation. Normal left M1 and M2 segments of the middle cerebral arteries, with a normal M1 bifurcation. 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 There is a persistent origin of the left posterior cerebral artery with absence of the posterior communicating artery (PCOM). There is a small atretic right vertebral artery with a dominant left vertebral artery. The basilar artery terminates in the superior cerebellar (SCA) arteries . Normal bilateral P1, P2 and visualized P3 segments of the posterior cerebral arteries. There is no demonstrated aneurysm of the [place] of [place]. There is no acute abnormality of the visualized brain. AORTIC ARCH: Normal visualized aortic arch. Normal origins of the brachiocephalic, left common carotid, and left subclavian arteries. RIGHT CAROTID ARTERIES: Normal right common carotid artery (CCA). There is moderate atherosclerotic plaque formation with moderate narrowing of the right carotid bulb. There is extensive atherosclerotic plaque formation of the origin of the right internal carotid artery with an estimated stenosis of greater than 70%. There is motion artifact degrading detail. There is atherosclerotic tortuous elongation of the cervical portion of the right internal carotid artery. Normal origin of the right external carotid artery (ECA). LEFT CAROTID ARTERIES: Normal left common carotid artery (CCA). There is mild atherosclerotic plaque formation with minimal narrowing of the left carotid bulb. There is mild atherosclerotic plaque formation of the origin of the left internal carotid artery with less than 50% cross sectional diameter stenosis. There is atherosclerotic tortuous elongation of the cervical portion of the left internal carotid artery. Normal origin of the left external carotid artery (ECA). VERTEBRAL ARTERIES: There is enhancement within the bilateral vertebral arteries with a small right vertebral artery, and a dominant left vertebral artery. 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 Severe right internal carotid artery stenosis. Electronically Signed: Carlos Issa MD at 18:37 EDT ,
== END | disposition home or self-care (01) ==
LOC: CT 16:34
PROVIDERS: PCP Family Medicine Geriatric Medicine; Referring Provider Ophthalmology; Visit Provider Ophthalmology
DX: H53.9 Unspecified visual disturbance (principal); H34.212 Partial retinal artery occlusion, left eye
CPT/HCPCS: 70470; 70498; Q9967

== ENCOUNTER 2022-01-11 13:56 | Outpatient (CLI) | payer MEDICARE, BC, SELFPAY ==
[2022-01-11 17:57] LABS: Absolute Lymphocyte Count 1.33 X10^3/uL (0.83-4.51); Absolute Neutrophil Count 7.8 X10^3/uL (2.0-7.7); Basophil# 0.09 X10^3/uL; Basophil% 0.9 % (0-1); Eosinophil# 0.18 X10^3/uL; Eosinophils% 1.7 % (0-5); Hematocrit 48.3 % (37-47); Hemoglobin 15.5 g/dL (12.0-15.0); Lymphocyte # 1.33 X10^3/ul (0.83-4.51); Lymphocyte % 12.8 % (19-41); Mean Corp Hgb Conc 32.1 g/dL (32-36); Mean Corpuscular Hgb 26.8 pg (27.0-32.0); Mean Corpuscular Volume 83.4 fL (81-99); Mean Platelet Vol. 10.1 fl (6.2-12.0); Monocyte# 0.91 X10^3/uL; Monocyte% 8.8 % (0-10); NRBC Flagged by Analyzer 0 % (0-5); Neutrophil # 7.79 X10^3/uL (2.7-7.7); Neutrophil % 75.2 % (47-70); Platelet Count 315 K/mm3 (150-450); RBC Distribution Width CV 16.3 % (11.6-14.6); RBC Distribution Width SD 49.6 fl (35.1-43.9); Red Blood Count 5.79 M/mm3 (4.2-5.4); White Blood Count 10.4 K/mm3 (4.4-11.0)
[2022-01-11 18:19] LABS: Vitamin D,25 Hydroxy 25.6 ng/mL
[2022-01-11 18:45] LABS: ALB/GLOB Ratio 1.1 RATIO (0.9-2.4); AST(SGOT) 19 U/L (15-37); Alanine Aminotransfer ALT/SGPT 22 U/L (13-56); Albumin, Serum 3.6 g/dL (3.2-5.0); Alkaline Phosphatase 100 U/L (45-117); Anion Gap 8 (5-15); BUN 13 mg/dL (7-18); BUN/Creat Ratio 15.7 RATIO (10-20); Calcium,Total 9.5 mg/dL (8.5-10.1); Chloride 96 mmol/L (98-107); Creatinine, Serum 0.83 mg/dL (0.55-1.02); EST Glomerular Filtration Rate 70 mL/min (>60); Est Glom Filt Rate - Afr Amer 85 mL/min (>60); Globulin 3.2 g/dL (2.2-4.2); Glucose 67 mg/dL (74-106); Potassium 3.3 mmol/L (3.5-5.1); Protein, Total 6.8 g/dL (6.4-8.2); Sodium Level 134 mmol/L (136-145); Thyroid Stim Hormone (TSH) 3.82 uIU/mL (0.358-3.74)
[2022-01-12 15:28] LABS: Uric Acid 3.6 mg/dL (2.6-6.0)
== END 2022-01-11 23:59 | disposition home or self-care (01) ==
LOC: POLAB3 13:57
PROVIDERS: PCP Family Medicine Geriatric Medicine; Visit Provider Family Medicine Geriatric Medicine
DX: I10 Essential (primary) hypertension (principal); E55.9 Vitamin D deficiency, unspecified; M10.9 Gout, unspecified
CPT/HCPCS: 36415; 80053; 82306; 84443; 84550; 85025

== ENCOUNTER 2022-01-21 10:35 | Outpatient (CLI) | payer MEDICARE, BC, SELFPAY ==
[2022-01-21 11:20] LABS: Anion Gap 6 (5-15); BUN 13 mg/dL (7-18); BUN/Creat Ratio 15.9 RATIO (10-20); Calcium,Total 8.6 mg/dL (8.5-10.1); Chloride 97 mmol/L (98-107); Creatinine, Serum 0.82 mg/dL (0.55-1.02); EST Glomerular Filtration Rate 71 mL/min (>60); Est Glom Filt Rate - Afr Amer 86 mL/min (>60); Glucose 109 mg/dL (74-106); Potassium 3.5 mmol/L (3.5-5.1); Sodium Level 133 mmol/L (136-145)
== END 2022-01-21 23:59 | disposition home or self-care (01) ==
LOC: LAB 10:36
PROVIDERS: PCP Family Medicine Geriatric Medicine; Visit Provider Family Medicine Geriatric Medicine
DX: E87.6 Hypokalemia (principal)
CPT/HCPCS: 36415; 80048

== ENCOUNTER 2022-02-08 05:11 | Inpatient (IN) | payer MEDICARE, BC, SELFPAY ==
--- NOTE | 2022-01-31 15:41 | EKG12_ITS ---
Test Reason : PRE OP Blood Pressure : / mmHG Vent. Rate : 061 BPM Atrial Rate : 061 BPM P-R Int : 178 ms QRS Dur : 118 ms QT Int : 492 ms P-R-T Axes : 038 033 069 degrees QTc Int : 495 ms Sinus rhythm with occasional Premature ventricular complexes Left ventricular hypertrophy with QRS widening Abnormal ECG Confirmed by MARINO GRAVES, ANDREW ([id number]), film editor supervisor OXANA KEANE ([id number]) on 02/02/2022 9:40:22 AM Referred By: STEVIE Confirmed By:ANDREW PICHARDO MD
[2022-01-31 15:50] LABS: Hematocrit 49.4 % (37-47); Hemoglobin 15.9 g/dL (12.0-15.0); Mean Corp Hgb Conc 32.2 g/dL (32-36); Mean Corpuscular Hgb 26.8 pg (27.0-32.0); Mean Corpuscular Volume 83.2 fL (81-99); Mean Platelet Vol. 9.6 fl (6.2-12.0); Platelet Count 328 K/mm3 (150-450); RBC Distribution Width SD 47.3 fl (35.1-43.9); Red Blood Count 5.94 M/mm3 (4.2-5.4); White Blood Count 11.6 K/mm3 (4.4-11.0)
[2022-01-31 16:32] LABS: Anion Gap 5 (5-15); BUN 20 mg/dL (7-18); BUN/Creat Ratio 20.7 RATIO (10-20); Calcium,Total 9.5 mg/dL (8.5-10.1); Chloride 99 mmol/L (98-107); Creatinine, Serum 0.97 mg/dL (0.55-1.02); EST Glomerular Filtration Rate 59 mL/min (>60); Est Glom Filt Rate - Afr Amer 71 mL/min (>60); Glucose 93 mg/dL (74-106); Potassium 4.1 mmol/L (3.5-5.1); Sodium Level 134 mmol/L (136-145)
[2022-02-08] VITALS (23 sets, daily range): BP systolic 103–229; BP diastolic 11–130; PULSE 49–64; RESP 11–20; TEMP 35.8–36.6; O2SAT 94–100; BMI 24.2
[2022-02-08] MEDS: Lactated Ringers 1,000 ML 15 ML IV (06:14)
--- NOTE | 2022-02-08 07:30 | PLAQ_PTH ---
PATIENT: STANLEY RODRIGUEZ LOC: ICU U#:[id number] AGE/SX: 81/F ROOM: ICU07 RE02/08/[address]: Dr. Mitchel Khan MD : [id number] BED: 1 DIS: 02/10/2022 SPEC #: [id number] RECD: 02/08/22 12:33 STATUS: LINK REQ #: [id number] ROSHNI: 02/08/22 07:[address]: Mitchel Khan DEPT: SURGICAL PATHOLOGY RECD BY: Cleo Espitia ENTERED: 02/09/22 09:00 SP TYPE: PLAQUE OTHR DR: MD Dr. Enrike Herrera Chi, MD Tissues: PLAQUE Procedures: Decalcification bone/plaque Surgery Specimen Level III HEADER OPERATION: Carotid endarterectomy PRE-OP DIAGNOSIS: Right carotid stenosis TISSUE SUBMITTED: Carotid plaque MICROSCOPIC DIAGNOSIS Carotid plaque, endarterectomy: Atherosclerotic tissue with calcifications (plaque). SJ:myranda 02/15/2022 GROSS DESCRIPTION Received in fixative is one container labeled with the patient's name and designated carotid plaque. The specimen consists of two irregular fragments of yellow-lay calcific tissue resembling plaque that in aggregate measure 3 x 2 x 1 cm. The specimen is sectioned and totally submitted in one cassette after decalcification. / AM:myranda 02/09/2022 TC:5 CPT: 03664, 36457
--- NOTE | 2022-02-08 07:40 | PCM.HP.STD ---
HPI - General General Date of Admission: 02/08/22 HPI Narrative STANLEY RODRIGUEZ, is a 81 F who presents with right ICA stenosis discovered during evaluation of visual disturbances/splitting vision. No loss of vision, no numbness/weakness/speech difficulty. Since initial episodes no new neurologic changes. CTA revealed high grade right ICA stenosis with dense calcification. Since office visit she has been seen be Dr. Weber who states she is optimized for surgery from cardiac standpoint. [facility] Medical History Acute gouty arthritis Anxiety Arthritis Atherosclerotic heart disease of [place] coronary artery without angina pectoris Atrial fibrillation Back pain Back problem Bladder cancer Bladder disease Bladder tumor Cancer Cardiology follow-up encounter Cellulitis of right upper extremity Chronic dental infection Difficulty chewing Erythrocytosis Essential hypertension Essential hypertension Former smoker GI bleed High cholesterol History of echocardiogram History of heart attack History of irregular heartbeat History of pacemaker History of stress test Hyperlipidemia Hypocalcemia Hypokalemia ICD (implantable cardioverter-defibrillator) discharge Ischemic cardiomyopathy Long-term use of high-risk medication Old myocardial infarction (~1997) Polycythemia vera Presence of cardiac defibrillator (~2005) Presence of stent in coronary artery (~10/02/17) Right WRIST monoarticular arthritis TIA (transient ischemic attack) Tobacco abuse Ventricular tachycardia Wears dentures Wears glasses Home Medications alprazolam 0.25 mg tablet 0.25 tab PO QHS jaw pain 05/24/16 [History Last Taken 02/07/22] aspirin 81 mg tablet,delayed release 81 mg PO QHS heart health 05/24/16 [History Last Taken 01/30/22] Zestril 20 mg tablet (lisinopril) 20 mg PO BID Must be name brand #180 tabs 02/07/21 [Rx Last Taken 02/07/22] Lipitor 40 mg tablet (atorvastatin) 40 mg PO QDAY cholesterol #90 tabs 09/13/21 [Rx Last Taken 02/07/22] isosorbide mononitrate 30 mg tablet,extended release 24 hr 30 mg PO BID heart 10/05/21 [History Last Taken 02/08/22] amiodarone 200 mg tablet 100 mg PO DAILY heart 01/26/22 [History Last Taken 02/08/22] hydrochlorothiazide 25 mg tablet 25 mg PO DAILY bp 01/26/22 [History Last Taken 02/08/22] metoprolol succinate 50 mg tablet,extended release 24 hr 50 mg PO BID bp 01/26/22 [History Last Taken 02/08/22] potassium chloride 20 mEq oral packet 20 meq PO BID supplement 01/26/22 [History Last Taken 02/07/22] nitroglycerin 0.4 mg sublingual tablet 0.4 mg sublingual UD PRN Cardiac/Chest Pain #90 tabs 02/03/22 [Rx Last Taken Unknown] Allergy/AdvReac Type Severity Reaction Status Date / Time amlodipine Allergy Severe rash Verified 02/08/22 06:10 doxazosin [From Cardura] AdvReac Severe Itching Verified 02/08/22 06:10 Influenza Virus Vaccines AdvReac Unknown Verified 02/08/22 06:10 Family History Mother Heart disease Myocardial infarction Brother Cancer CAD (coronary artery disease) Brother CAD (coronary artery disease) Brother CAD (coronary artery disease) Surgical History H/O cataract extraction History of back surgery History of back surgery History of cataract extraction History of cholecystectomy History of implantable cardiac defibrillator (ICD) History of mandibular surgery History of mandibular surgery Hx of cholecystectomy ICD SURGERY Presence of coronary angioplasty implant and graft (~10/02/17) Social History Smoking Status: Former smoker how long ago did patient quit smokin years ago alcohol intake: current alcohol intake frequency: holidays/special occasions only Alcohol type: wine caffeine: Yes Type: coffee Number of servings: 4 ROS Constitutional Constitutional: Denies chills, fatigue, fever(s) or weakness Eyes Eyes: Reports double vision Cardiovascular Cardiovascular: Denies chest pain or edema Respiratory/Chest Respiratory/Chest: Denies cough, shortness of breath at rest or shortness of breath with exertion Genitourinary Genitourinary: Denies dysuria or hematuria Neurologic Neurologic: Denies abnormal gait, abnormal speech, confusion, focal weakness or numbness Psychiatric Psychiatric: Denies anxiety or depression Vital Signs Vital Signs Vital Signs: 02/08/22 06:15 02/08/22 06:15 02/08/22 06:15 Temperature 98 F Temperature Source Temporal Pulse Rate 50 L Respiratory Rate 18 Respiratory Pattern Normal Blood Pressure 123/72 H Blood Pressure [2nd BP] 147/61 H Blood Pressure Mean 89 Blood Pressure Mean [2nd BP] 89 Blood Pressure Source Monitor Blood Pressure Source [2nd BP] Monitor Blood Pressure Position Semi-Fowlers Blood Pressure Position [2nd BP] Semi-Fowlers Blood Pressure Location Right Arm Blood Pressure Location [2nd BP] Left Arm Pulse Ox 98 Oxygen Delivery Method Room Air Weight Weight: 124 lb Body Mass Index (BMI) 24.2 Physical Exam Const alert, oriented x3, no apparent distress and healthy appearing General Appearance: cooperative; Negative for combative or lethargic Orientation / Consciousness: awake Exam Limitations: no limitations HEENT Head and Scalp: normocephalic and atraumatic Eyes EOMs intact bilaterally General Eye: normal appearance of both eyes Neck full ROM, no lymphadenopathy and thyroid normal General: trachea midline; Negative for lymphadenopathy or tenderness Thyroid: thyroid normal Lymph Lymphatic: Negative for no lymphadenopathy noted Resp normal respiratory effort and no use of accessory muscles Effort and Inspection: Negative for labored, stridor or audible wheezes Cardio regular rate and regular rhythm Peripheral Pulses: radial pulses present Back/Spine Cervical Spine: cervical ROM normal Extremity full ROM, normal capillary refill and no clubbing, cyanosis or edema Skin no rashes or lesions noted and no wounds Neuro oriented x3, CN's II-XII intact bilaterally, no focal motor deficits and no sensory deficits noted Psych thought process normal, cooperative, affect normal, speech normal and activity/motor behavior normal Results Lab / Micro Data Result Diagrams: 01/31/22 15:35 01/31/22 15:35 Assessment & Plan Assessment/Plan (1) Carotid stenosis, right: PLAN: -right CEA -after recovery will help arrange Neuro interventional visit at [facility]
[2022-02-08] MEDS: Cefazolin 2 GM in 0.9% Normal Saline 100 ML IV (08:02)
[2022-02-08] MEDS: Heparin Injection (Vial) 5,000 UNIT/ML VIAL 5000 UNIT (09:00)
[2022-02-08] MEDS: Bupivacaine 0.25% 30 ML Vial (10:58)
[2022-02-08] MEDS: Nitroglycerin Infusion 250 ML 3 MG CONT INF (11:45)
[2022-02-08] MEDS: 0.9% Saline Lock 10 ML Syringe IV (12:04)
[2022-02-08] MEDS: Dext 5%-0.45% NS 1,000 ML 75 ML IV (12:04)
[2022-02-08] MEDS: Labetalol (Prefilled) 20 MG/4 ML 10 MG IV ×2 (12:04→21:32)
--- NOTE | 2022-02-08 12:15 | CON.PCM.HO_ITS ---
Assessment & Plan Assessment/Plan (1) Carotid stenosis, right: PLAN: Plan #Right high grade carotid artery stenosis * s/p carotid endarterectomy * management as per vascular surgery * #History of CAD s/p stents: on aspirin and high intensity statin. Also on imdur #Ventricular tachycardia: s/p cardiac defibrillator. #Hypertension: on hyodrochlorthiazide and zestril as well as metoprolol #Hyperlipidemia: on statin #paroxysmal afib: on amiodarone and metoprolol DVT prophylaxis: as per primary team Thank you for the courtesy of the consult. we will continue to follow with you. HPI Consult Data Date of Consult: 02/08/22 HPI Narrative Reason for Consultation: medical management HPI Narrative: STANLEY RORDIGUEZ, is a 81 F with a PMh as outlined who was admitted to the vascular surgery service o/a of right ICA stenosis with dense calcification. She was admitted for carotid endarterectomy on 02/08/2022. Hospitalist service was c onsulted for medical management. Patient was seen after surgery. She was seen in the ICU. She had no active complaint. Pain was well controlled. Review of systems otherwise negative labs and vitals reviewed. Home medication reviewed and reconciled. [facility] Medical History Acute gouty arthritis Anxiety Arthritis Atherosclerotic heart disease of [place] coronary artery without angina pectoris Atrial fibrillation Back pain Back problem Bladder cancer Bladder disease Bladder tumor Cancer Cardiology follow-up encounter Cellulitis of right upper extremity Chronic dental infection Difficulty chewing Erythrocytosis Essential hypertension Essential hypertension Former smoker GI bleed High cholesterol History of echocardiogram History of heart attack History of irregular heartbeat History of pacemaker History of stress test Hyperlipidemia Hypocalcemia Hypokalemia ICD (implantable cardioverter-defibrillator) discharge Ischemic cardiomyopathy Long-term use of high-risk medication Old myocardial infarction (~1997) Polycythemia vera Presence of cardiac defibrillator (~2005) Presence of stent in coronary artery (~10/02/17) Right WRIST monoarticular arthritis TIA (transient ischemic attack) Tobacco abuse Ventricular tachycardia Wears dentures Wears glasses Home Medications alprazolam 0.25 mg tablet 0.25 tab PO QHS jaw pain 05/24/16 [History Last Taken 02/07/22] aspirin 81 mg tablet,delayed release 81 mg PO QHS heart health 05/24/16 [History Last Taken 01/30/22] Lipitor 40 mg tablet (atorvastatin) 40 mg PO QDAY cholesterol #90 tabs 09/13/21 [Rx Last Taken 02/07/22] isosorbide mononitrate 30 mg tablet,extended release 24 hr 30 mg PO BID heart 10/05/21 [History Last Taken 02/08/22] amiodarone 200 mg tablet 100 mg PO DAILY heart 01/26/22 [History Last Taken 02/08/22] hydrochlorothiazide 25 mg tablet 25 mg PO DAILY bp 01/26/22 [History Last Taken 02/08/22] metoprolol succinate 50 mg tablet,extended release 24 hr 50 mg PO BID bp 01/26/22 [History Last Taken 02/08/22] potassium chloride 20 mEq oral packet 20 meq PO BID supplement 01/26/22 [History Last Taken 02/07/22] nitroglycerin 0.4 mg sublingual tablet 0.4 mg sublingual UD PRN Cardiac/Chest Pain #90 tabs 02/03/22 [Rx Last Taken Unknown] Zestril 20 mg tablet (lisinopril) 20 mg PO BID Must be name brand #180 tabs 02/08/22 [Rx Last Taken Unknown] Allergy/AdvReac Type Severity Reaction Status Date / Time amlodipine Allergy Severe rash Verified 02/08/22 06:10 doxazosin [From Cardura] AdvReac Severe Itching Verified 02/08/22 06:10 Influenza Virus Vaccines AdvReac Unknown Verified 02/08/22 06:10 Family History Mother Heart disease Myocardial infarction Brother Cancer CAD (coronary artery disease) Brother CAD (coronary artery disease) Brother CAD (coronary artery disease) Surgical History H/O cataract extraction History of back surgery History of back surgery History of cataract extraction History of cholecystectomy History of implantable cardiac defibrillator (ICD) History of mandibular surgery History of mandibular surgery Hx of cholecystectomy ICD SURGERY Presence of coronary angioplasty implant and graft (~10/02/17) Social History Smoking Status: Former smoker how long ago did patient quit smokin years ago alcohol intake: current alcohol intake frequency: holidays/special occasions only Alcohol type: wine caffeine: Yes Type: coffee Number of servings: 4 ROS Constitutional Constitutional: Denies anorexia, chills, fatigue, fever(s) or weakness Eyes Eyes: Denies blurry vision or change in vision ENT HEENT: Denies dysphagia, headache(s) or sore throat Cardiovascular Cardiovascular: Denies chest pain, dyspnea on exertion, edema, lightheadedness, orthopnea, palpitations, paroxysmal nocturnal dyspnea, rapid heart rate or syncope Respiratory/Chest Respiratory/Chest: Denies cough, dyspnea, shortness of breath at rest or shortness of breath with exertion Gastrointestinal Gastrointestinal: Denies abdominal pain, constipation, nausea or vomiting Genitourinary Genitourinary: Denies burning urination or dysuria Musculoskeletal Musculoskeletal: Denies arthralgias or back pain Neurologic Neurologic: Denies confusion, dizziness, focal weakness, headache(s), seizure- like activity or seizures Psychiatric Psychiatric: Denies anxiety Physical Exam Const alert, oriented x3 and no apparent distress HEENT normocephalic, head/scalp atraumatic, hearing grossly normal bilaterally and moist oral mucous membranes HEENT Narrative: drain in right carotid surgical site. clean surgical wound over right carotid, on right neck Mouth: oral and palatal mucosa normal Eyes PERRL and EOMs intact bilaterally Neck no lymphadenopathy and supple Resp normal respiratory effort, no retractions, no use of accessory muscles and clear to auscultation bilaterally Cardio regular rate, regular rhythm, S1 normal heart sound, S2 normal heart sound and no murmurs GI normal to inspection, nondistended, normoactive bowel sounds, soft to palpation, non-tender and non-distended Extremity normal to inspection, full ROM and no clubbing, cyanosis or edema Neuro oriented x3, CN's II-XII intact bilaterally, moves all extremities and no focal motor deficits Sensorium / Orientation: awake and alert Motor Exam: strength 5/5 throughout Psych affect normal Lab / Micro Data Result Diagrams: 01/31/22 15:35 01/31/22 15:35 Charges/Coding Visit Charges Office Visits / Consults: [id number] IP Consult L4
[2022-02-08] MEDS: Ondansetron 4 MG/2 ML Vial IV ×2 (12:46→18:50)
[2022-02-08] MEDS: hydrALAZINE 20 MG/ML Vial 10 MG IV (12:46)
[2022-02-08] MEDS: Acetaminophen 500 MG Tablet 1000 MG PO ×2 (15:23→21:05)
[2022-02-08 16:08] LABS: ACT Activated Clotting Time 143 sec (74-137)
[2022-02-08 16:10] LABS: ACT Activated Clotting Time 251 sec (74-137)
[2022-02-08 16:11] LABS: ACT Activated Clotting Time 239 sec (74-137)
[2022-02-08 16:11] LABS: ACT Activated Clotting Time 372 sec (74-137)
[2022-02-08] MEDS: Cefazolin 1 GM/50 ML BAG IV (16:39)
[2022-02-08] MEDS: Potassium Chloride Oral Tablet 20 MEQ PO (16:39)
--- NOTE | 2022-02-08 18:04 | OP.PCM_ITS ---
Report of Operation Date of Procedure: 02/08/22 Pre-Operative Diagnosis: right carotid stenosis Post-Operative Diagnosis: same Surgery/Procedure Performed:: right carotid endarterectomy Surgeon: Mitchel Khan Type of Anesthesia: General Specimen's removed: plaque Drains: MARIBETH 10 mm Estimated Blood Loss (mL): 100 Description of Procedure: HPI: Patient is an 81-year-old female who was found to have high-grade right internal carotid artery stenosis which was asymptomatic. She was noted to have a intracranial aneurysm originating from the terminus of the right internal carotid. She was medically optimized and presents now for elective endarterectomy. Description of procedure: Upon obtaining informed consent and verification correct patient procedure and site the patient was taken to the operating where she was placed under general anesthesia. She was then positioned prepped and draped in the usual sterile fashion and timeout was performed. Ultrasound was used to morelia the location of the carotid bifurcation as well as the distal extent of the plaque, both of which were fairly distal. Oblique incision was made along the anterior border of the sternocleidomastoid and Bovie electrocautery used to dissect down through the subcutaneous tissue to the level of platysma. Platysma was then divided and self-retaining retractors put in position, and further dissection carried down to the anterior border of the sternocleidomastoid. The sternocleidomastoid was then freed along with to be retracted laterally and the self-retaining retractors moved deeper into the wound. Sharp resection was then used to dissect free the anterior border of the internal jugular vein, and the facial vein identified, ligated with silk ties and divided. The jugular was then retracted laterally exposing the carotid vessels, and sharp resection was used to dissect down to the proximal common carotid artery. Care was taken to identify and protect the vagus nerve, and once the common carotid artery was dissected free circumferentially a right angle was used to place a vessel loop. Dissection was then carried laterally along the edge of the carotid sheath, and dissection carried distally on the internal carotid artery beyond any palpable or visible plaque. The vessel had very irregular looking plaque with what appeared to be intra mural hemorrhage visible from externally, which suggested more friable lesion. Given this, prior to any further dissection the patient was heparinized and allowed to circulate for 3 minutes. Sharp dissection sas then used to dissect free the distal internal carotid artery, with care taken to identify and protect the hypoglossal nerve. Once the vessel was dissected free circumferentially a right angle used to place a vessel loop, and attention was turned to the external carotid artery. Once this was dissected free a right angle was used to place a vessel loop around the origin of the external carotid artery. Next the vessels were clamped, first the internal carotid artery followed by the common and external carotid arteries. A longitudinal arteriotomy was created with 11 blade on the distal common carotid artery and extended with Arias scissors onto the internal carotid artery beyond the area of plaque. A 12 [place] shunt was then placed first distally into the internal carotid artery, allowed to backbleed and then placed proximally in the common carotid artery. The shunt was interrogated with Doppler and found to be patent with low resistance signal. We then performed our endarterectomy using a freer elevator, with satisfactory endpoint distally on the internal carotid artery and eversion endarterectomy of the external carotid artery. The lumen was then flushed with heparinized saline and cleared of any debris, and the distal endpoint tacked with 7-0 Prolene interrupted sutures. Next a bovine pericardial patch was brought in the field and prepped for manufactures instructions. This was then secured in position using 6-0 Prolene in a running fashion, and prior to completing the suture line the shunt removed and vessels backbled. After completing the suture line the internal carotid artery was unclamped allowed to backbleed into the bifurcation, and then reoccluded as origin. Clamps were then removed from the external and common carotid artery allowing 10 heartbeats of antegrade flow to flush into the external carotid artery before releasing the internal carotid artery allowing antegrade flow. Vessels were then interrogated with Doppler and the internal carotid artery was patent with low resistance signal, and the external carotid artery patent. There is satisfactory hemostasis noted from the suture line, and this point the patient was reversed with protamine. The vessels were then read interrogated with Doppler and found to be remaining patent and there is satisfactory hemostasis in the field. A 10 mm channel MARIBETH was then placed via separate stab incision, and the incision was closed with 2-0 Vicryl, 3-0 Vicryl, 4-0 Monocryl and Dermabond for the skin. At the conclusion of the case the patient was awakened anesthesia following commands with equal strength bilaterally cranial nerves intact. Patient then taken to the intensive care unit for close hemodynamic and neurologic monitoring.
[2022-02-08] MEDS: Lisinopril 20 MG Tablet PO ×2 (21:01→21:05)
[2022-02-08] MEDS: ALPRAZolam 0.25 MG Tablet PO (21:01)
[2022-02-08] MEDS: Aspirin E.C. 81 MG Tablet PO (21:05)
--- NOTE | 2022-02-08 21:32 | NURSING ---
Pt experienced hypertension of 226/125, symptomatic including dizziness, nausea, and dry heaving. PRN Labetalol given per orders. Medication was effective and symptoms resolved. NIH assessed following episode and scored 0 at this time. Will continue to monitor.
[2022-02-09] VITALS (26 sets, daily range): BP systolic 106–184; BP diastolic 57–118; PULSE 53–95; RESP 14–22; TEMP 35.9–36.6; O2SAT 92–99
[2022-02-09] MEDS: Dext 5%-0.45% NS 1,000 ML 75 ML IV ×2 (00:24→14:01)
[2022-02-09] MEDS: 0.9% Saline Lock 10 ML Syringe IV (00:25)
[2022-02-09] MEDS: Cefazolin 1 GM/50 ML BAG IV (00:25)
[2022-02-09] MEDS: Ondansetron 4 MG/2 ML Vial IV (02:21)
[2022-02-09 03:47] LABS: Absolute Lymphocyte Count 1.14 X10^3/uL (0.83-4.51); Absolute Neutrophil Count 8.3 X10^3/uL (2.0-7.7); Basophil# 0.06 X10^3/uL; Basophil% 0.6 % (0-1); Hematocrit 40.3 % (37-47); Hemoglobin 12.7 g/dL (12.0-15.0); Lymphocyte # 1.14 X10^3/ul (0.83-4.51); Mean Corp Hgb Conc 31.5 g/dL (32-36); Mean Corpuscular Hgb 26.2 pg (27.0-32.0); Mean Corpuscular Volume 83.3 fL (81-99); Monocyte# 0.72 X10^3/uL; Monocyte% 6.9 % (0-10); NRBC Flagged by Analyzer 0 % (0-5); Neutrophil # 8.29 X10^3/uL (2.7-7.7); Neutrophil % 79.8 % (47-70); Platelet Count 244 K/mm3 (150-450); RBC Distribution Width CV 15.8 % (11.6-14.6); RBC Distribution Width SD 47.3 fl (35.1-43.9); Red Blood Count 4.84 M/mm3 (4.2-5.4); White Blood Count 10.4 K/mm3 (4.4-11.0)
[2022-02-09 03:58] LABS: Anion Gap 6 (5-15); BUN 10 mg/dL (7-18); BUN/Creat Ratio 15.6 RATIO (10-20); Calcium,Total 7.8 mg/dL (8.5-10.1); Chloride 98 mmol/L (98-107); Creatinine, Serum 0.64 mg/dL (0.55-1.02); EST Glomerular Filtration Rate 94 mL/min (>60); Est Glom Filt Rate - Afr Amer 114 mL/min (>60); Estimated Creatinine Clearance 31.15 ml/min; Glucose 133 mg/dL (74-106); Magnesium 1.7 mg/dL (1.6-2.6); Phosphorus 2.9 mg/dL (2.5-4.9); Potassium 3.1 mmol/L (3.5-5.1); Sodium Level 131 mmol/L (136-145)
--- NOTE | 2022-02-09 11:00 | CASEMGMT ---
RN PAUL BAG ADJUSTER CM to room to meet with patient for initial transition planning/care coordination assessment. RN PAUL introduced self and role at [facility]. Pt voices understanding and consents to assessment at this time. Pt sitting up in bed in no distress at this time. Pt is A/O at this time and answers all questions appropriately. Care providers, pharmacy, and demographics verified/updated at this time. PCP: Dr Dobbins Specialists: Dr Khan-vas surgeon, Dr Weber-cardiology Preferred Pharmacy:[facility] [place] Insurance: Becky PIERRE Prescription Benefit: Yes Living Will/HPOA: Has both LW and HCPOA, who is her nephewKuldip LNOK: Nephew/POAKuldip. Niece, Liliam Living Arrangements: Lives alone in one-story home w/basement w/3 steps to enter. Pt states does okay with the stairs. Independent w/ADL's and IADL's. Pt states has good support, should she need assistance, stating, I have a lot of people on stand-by. She states her neighbor plans to stop by at least once a day for awhile. Transportation: Pt states drives self and states no transportation concerns at this time. Family will take pt home @ d/c. DME: Denies using any DME and denies needs. HHC/SNF: No hx of either. Has had private-duty aides in the past and is interested in having an aide come again. Pt provided w/list of Private Duty Agencies. Pt declines wanting/needing HHC for nursing or therapy. Pt wishes to return home and states has no concerns with going home at time of discharge. CM to follow for any further discharge planning/needs. Pt voices no further concerns/needs at this time. Advised pt to ask for CM if any further questions/concerns/needs arise. Voices understanding. PLAN: Home Rafal SIMENTAL RN, CM
[2022-02-09] MEDS: Amiodarone 200 MG Tablet 100 MG PO (11:08)
[2022-02-09] MEDS: Isosorbide Mononitrate 30 MG Tablet PO (11:08)
[2022-02-09] MEDS: Potassium Chloride Oral Tablet 20 MEQ 40 MEQ PO (11:09)
[2022-02-09] MEDS: hydroCHLOROthiazide 25 MG Tablet PO (11:09)
[2022-02-09] MEDS: Potassium Chloride Oral Tablet 20 MEQ PO ×2 (11:09→17:37)
[2022-02-09] MEDS: Enoxaparin 40 MG/0.4 ML Syringe SC (11:10)
--- NOTE | 2022-02-09 13:50 | PN.HOSP_ITS ---
Subjective Subjective Patient seen and examined. She says she feels much better today. Pain is better controlled. She did have some nausesa and vomiting overnight, but that has improved. She has remained hemodynamically stable. Objective Data Objective Data Vital Signs: Vital Signs Temp Pulse Resp BP Pulse Ox O2 Del Method O2 Flow Rate 96.8 F L 74 18 163/58 H 98 Room Air 2 02/09/22 12:00 02/09/22 12:00 02/09/22 12:00 02/09/22 12:00 02/09/22 12:00 02/09/22 12:00 02/08/22 13:11 Oxygen Flow Rate (L/min) 2 Oxygen Delivery Method Room Air Weight: 124 lb 12.506 oz Body Mass Index (BMI) 24.2 Intake & Output: Intake and Output for Last 24 Hours 02/07/22 02/08/22 02/09/22 23:59 23:59 23:59 Intake Total 468.25 / 468.25 975 / 975 Output Total 920 / 920 575 / 575 Balance -451.75 / -451.75 400 / 400 Lab / Micro Data Result Diagrams: 02/09/22 03:30 02/09/22 03:30 Labs: Laboratory Results - last 24 hr 02/08/22 07:45: Activated Clotting Time 143 H 02/08/22 09:00: Activated Clotting Time 251 H 02/08/22 09:30: Activated Clotting Time 372 H 02/08/22 10:00: Activated Clotting Time 239 H 02/09/22 03:30: WBC 10.4, RBC 4.84, Hgb 12.7, Hct 40.3, MCV 83.3, MCH 26.2 L, MCHC 31.5 L, RDW Std Deviation 47.3 H, RDW Coeff of Hood 15.8 H, Plt Count 244, MPV 10.0, Immature Gran % (Auto) 0.700, Neut % (Auto) 79.8 H, Lymph % (Auto) 11.0 L, [place] % (Auto) 6.9, Eos % (Auto) 1.0, Baso % (Auto) 0.6, Absolute Neuts (auto) 8.3 H, Absolute Lymphs (auto) 1.14, Nucleated RBC % 0 02/09/22 03:30: Sodium 131 L, Potassium 3.1 L, Chloride 98, Carbon Dioxide 27.0, Anion Gap 6, BUN 10, Creatinine 0.64, Estim Creat Clear Calc 31.15, Est GFR (MDRD) Af Amer 114, Est GFR (MDRD) Non-Af 94, BUN/Creatinine Ratio 15.6, Glucose 133 H, Calcium 7.8 L, Phosphorus 2.9, Magnesium 1.7 Physical Exam Const alert, oriented x3 and no apparent distress HEENT normocephalic, head/scalp atraumatic, hearing grossly normal bilaterally and moist oral mucous membranes Head and Scalp: normocephalic Mouth: oral and palatal mucosa normal and dry mucous membranes Eyes PERRL and EOMs intact bilaterally Neck no lymphadenopathy and supple Resp normal respiratory effort, no retractions, no use of accessory muscles and clear to auscultation bilaterally Cardio regular rate, regular rhythm, S1 normal heart sound, S2 normal heart sound and no murmurs GI normal to inspection, nondistended, normoactive bowel sounds, soft to palpation, non-tender and non-distended Extremity normal to inspection, full ROM and no clubbing, cyanosis or edema Skin Skin Narrative: clean looking surgical wound over right side of neck, with subcutaneous drain in situ Neuro oriented x3, CN's II-XII intact bilaterally, moves all extremities and no focal motor deficits Sensorium / Orientation: awake and alert Motor Exam: strength 5/5 throughout Psych affect normal Assessment & Plan Assessment/Plan (1) Carotid stenosis, right: PLAN: Plan #Right high grade carotid artery stenosis * s/p carotid endarterectomy * management as per vascular surgery * #History of CAD s/p stents: on aspirin and high intensity statin. Also on imdur #Ventricular tachycardia: s/p cardiac defibrillator. #Hypertension: on hyodrochlorthiazide and zestril as well as metoprolol #Hyperlipidemia: on statin #paroxysmal afib: on amiodarone and metoprolol DVT prophylaxis: as per primary team Thank you for the courtesy of the consult. we will continue to follow with you. Charges/Coding Visit Charges Inpatient E&M: 28449 Subs Hosp L2
[2022-02-09] MEDS: Acetaminophen 500 MG Tablet 1000 MG PO ×2 (14:01→21:19)
[2022-02-09] MEDS: Aspirin E.C. 81 MG Tablet PO (21:18)
[2022-02-09] MEDS: Atorvastatin Calcium 40 MG Tablet PO (21:19)
[2022-02-09] MEDS: Metoprolol(XL)Succ 50 MG Tablet PO (21:19)
[2022-02-09] MEDS: ALPRAZolam 0.25 MG Tablet PO (21:20)
[2022-02-09] MEDS: Lisinopril 20 MG Tablet PO (21:22)
[2022-02-10] VITALS (10 sets, daily range): BP systolic 136–173; BP diastolic 63–83; PULSE 57–67; RESP 16–20; TEMP 36.6–36.7; O2SAT 94–96
[2022-02-10] MEDS: 0.9% Saline Lock 10 ML Syringe IV (03:36)
[2022-02-10] MEDS: Labetalol (Prefilled) 20 MG/4 ML 10 MG IV (03:36)
[2022-02-10] MEDS: Acetaminophen 500 MG Tablet 1000 MG PO (06:04)
--- NOTE | 2022-02-10 10:52 | CASEMGMT ---
BEBO MILLER NOTE: Therapy note from yesterday reviewed. Pt ambulated w/min assist of one, but unsteady and impulsive. Additional therapy recommended. BEBO MILLER to room to talk w/pt. She was made aware of recommendations for additional therapy. BEBO MILLER broached topic of HHC and OP therapy, but pt declines wanting or needing either one. BEBO MILLER also inquired about pt getting a walker, but she adamantly declines, stating, I'm okay. I would take it if I needed it, but I don't need it. She states, I just need to get home and I'll be okay. Pt states she just wants an aide to stay with her overnight, but the last time she checked into it, they only stay until 4 PM. Pt was provided w/list of Private duty agencies yesterday, but she does not recall getting a list and BEBO MILLER unable to locate it in her room. Another list of agencies provided at this time. Pt states she feels safe to return home alone and does not have any further discharge planning needs or concerns. BEBO MILLER instructed her to contact her PCP to discuss HHC or OP therapy if she changes her mind once returning home. She voices understanding. Rafal SIMENTLA RN, CM
--- NOTE | 2022-02-10 11:41 | PN.HOSP_ITS ---
Subjective Subjective Patient seen and examined. She had no active complaints today and felt well. She had an uneventful night. Review of systems otherwise negative. He has remained hemodynamically stable. Objective Data Objective Data Vital Signs: Vital Signs Temp Pulse Resp BP Pulse Ox O2 Del Method O2 Flow Rate 97.8 F 65 16 162/81 H 96 Room Air 2 02/10/22 08:00 02/10/22 08:00 02/10/22 08:00 02/10/22 08:00 02/10/22 08:00 02/10/22 08:00 02/09/22 20:00 Oxygen Flow Rate (L/min) 2 Oxygen Delivery Method Room Air Weight: 128 lb 11.999 oz Body Mass Index (BMI) 24.2 Intake & Output: Intake and Output for Last 24 Hours 02/08/22 02/09/22 02/10/22 23:59 23:59 23:59 Intake Total 468.25 / 468.25 2626.25 / 2626.25 360 / 360 Output Total 920 / 920 2150 / 2150 500 / 500 Balance -451.75 / -451.75 476.25 / 476.25 -140 / -140 Lab / Micro Data Result Diagrams: 02/09/22 03:30 02/09/22 03:30 Physical Exam Const alert, oriented x3 and no apparent distress HEENT normocephalic, head/scalp atraumatic, hearing grossly normal bilaterally and moist oral mucous membranes Head and Scalp: normocephalic Mouth: oral and palatal mucosa normal Eyes PERRL and EOMs intact bilaterally Neck no lymphadenopathy, supple and no JVD Resp normal respiratory effort, no retractions, no use of accessory muscles and clear to auscultation bilaterally Cardio regular rate, regular rhythm, S1 normal heart sound, S2 normal heart sound and no murmurs GI normal to inspection, nondistended, normoactive bowel sounds, soft to palpation, non-tender and non-distended Extremity normal to inspection, full ROM and no clubbing, cyanosis or edema Skin Skin Narrative: clean looking surgical wound over right side of neck, intact dressing over wound. Drain removed. Neuro oriented x3, CN's II-XII intact bilaterally, moves all extremities and no focal motor deficits Sensorium / Orientation: awake and alert Motor Exam: strength 5/5 throughout Psych affect normal Assessment & Plan Assessment/Plan (1) Carotid stenosis, right: PLAN: Plan #Right high grade carotid artery stenosis * s/p carotid endarterectomy * management as per vascular surgery * #History of CAD s/p stents: on aspirin and high intensity statin. Also on imdur #Ventricular tachycardia: s/p cardiac defibrillator. #Hypertension: on hydrochlorothiazide and zestril as well as metoprolol. BP remains a bit elevated this morning. Will monitor. #Hyperlipidemia: on statin #paroxysmal afib: on amiodarone and metoprolol DVT prophylaxis: as per primary team. on SCDs Charges/Coding Visit Charges Inpatient E&M: 74680 Subs Hosp L2
[2022-02-10] MEDS: hydroCHLOROthiazide 25 MG Tablet PO (12:16)
[2022-02-10] MEDS: Lisinopril 20 MG Tablet PO (12:16)
[2022-02-10] MEDS: Isosorbide Mononitrate 30 MG Tablet PO (12:16)
[2022-02-10] MEDS: Amiodarone 200 MG Tablet 100 MG PO (12:17)
[2022-02-10] MEDS: Metoprolol(XL)Succ 50 MG Tablet PO (12:17)
[2022-02-10] MEDS: Potassium Chloride Oral Tablet 20 MEQ PO (12:17)
--- NOTE | 2022-02-10 13:32 | DCINST_ITS ---
Discharge Instructions Diet Discharge Diet: No restrictions Activity Discharge Activity: Return to Normal Activity and May Shower May resume sexual activity in: No Restrictions Weight Bearing Status: Weight bearing as tolerated Dressing / Incision Call your doctor if your incision/area has: Sudden Increased Bleeding and Increased Pain/ Swelling Cleanse incision/area with: Soap & Water Follow Up Care Test Results: Test results from this visit will be discussed in further detail at your follow- up appointment, if applicable. Discharge Plan Admission Admit Date/Time: 02/08/22 05:11 Attending Provider: Mitchel Khan Primary Care Provider: Enrike Dobbins [employer] Providers: Mignon Stephens Discharge Orders/Prescriptions Prescriptions: No Action isosorbide mononitrate 30 mg tablet extended release 24 hr 30 mg PO BID Rx Instructions: Must be white pill not red pill nitroglycerin 0.4 mg tablet, sublingual 0.4 mg SUBLINGUAL UD MDD Q5min prn PRN (Reason: Cardiac/Chest Pain) Qty: 90 6RF aspirin 81 MG tablet,delayed release (DR/EC) 81 mg PO QHS alprazolam 0.25 MG tablet 0.25 tab PO QHS Label Comments: for jaw, takes in the late evening amiodarone 200 mg tablet 100 mg PO DAILY metoprolol succinate 50 mg tablet extended release 24 hr 50 mg PO BID Rx Instructions: MUST BE BRAND NAME MEDICATION hydrochlorothiazide 25 mg tablet 25 mg PO DAILY potassium chloride 20 mEq Packet 20 meq PO BID atorvastatin [Lipitor] 40 mg tablet 40 mg PO QDAY Qty: 90 4RF Rx Instructions: Must be Brand Name, no generic. lisinopril [Zestril] 20 mg tablet 20 mg PO BID Qty: 180 3RF Other Ambulatory Orders: 12 Lead EKG (Routine) Timeframe: [id number] Location: None Selected Ordered By: Dr. Jeff Gerber Referrals / Follow Up: Enrike Dobbins Chi, MD [Primary Care Provider] -
--- NOTE | 2022-02-10 14:45 | PCM.DC ---
Discharge Instructions Diet Discharge Diet: No restrictions Activity Discharge Activity: Return to Normal Activity and May Shower May shower in (days): 2 May resume sexual activity in: No Restrictions Weight Bearing Status: Weight bearing as tolerated Lifting Restrictions: Do not lift >20 lbs for 3 weeks Dressing / Incision Call your doctor if your incision/area has: Sudden Increased Bleeding, Increased Pain/ Swelling and Foul Smelling Discharge Call your doctor if you observe: Fever of 101 or Higher Cleanse incision/area with: Soap & Water Additional Dressing/Incision Instructions:: Surgical glue is protecting the incision site, this will peel off on its own over the course of 1-2 weeks. Do not submerge the incision site in water for 3 weeks. Follow Up Care Please Follow Up With: Mitchel Khan MD When: 02/23/2022 at 10:30 AM Discharge Plan Admission Admit Date/Time: 02/08/22 05:11 Primary Reason for Your Visit: Right Carotid Endarterectomy Attending Provider: Mitchel Khan Primary Care Provider: Enrike Dobbins [employer] Providers: Mignon Stephens Instructions Additional Instructions / Restrictions: You may shower in 2 days. Do not submerge incision in water/take a bath for 3 weeks. Do not lift anything greater than 20 pounds for 3 weeks. Keep incision site clean and dry. Monitor for severe headache and symptoms of stroke such as significant one-sided weakness, total loss of vision in one eye, asymmetry of the face, and slurred speech. If these occur, present to the emergency room. As requested will not send in prescription for pain medication. Recommend scheduled tylenol every 4-6 hours for pain. Return to the vascular surgery office for your appointment on 02/23/2022 at 10:30 AM. Discharge Orders/Prescriptions Prescriptions: Continued isosorbide mononitrate 30 mg tablet extended release 24 hr 30 mg PO BID Rx Instructions: Must be white pill not red pill nitroglycerin 0.4 mg tablet, sublingual 0.4 mg SUBLINGUAL UD MDD Q5min prn PRN (Reason: Cardiac/Chest Pain) Qty: 90 6RF aspirin 81 MG tablet,delayed release (DR/EC) 81 mg PO QHS alprazolam 0.25 MG tablet 0.25 tab PO QHS Label Comments: for jaw, takes in the late evening amiodarone 200 mg tablet 100 mg PO DAILY metoprolol succinate 50 mg tablet extended release 24 hr 50 mg PO BID Rx Instructions: MUST BE BRAND NAME MEDICATION hydrochlorothiazide 25 mg tablet 25 mg PO DAILY potassium chloride 20 mEq Packet 20 meq PO BID atorvastatin [Lipitor] 40 mg tablet 40 mg PO QDAY Qty: 90 4RF Rx Instructions: Must be Brand Name, no generic. lisinopril [Zestril] 20 mg tablet 20 mg PO BID Qty: 180 3RF Other Ambulatory Orders: 12 Lead EKG (Routine) Timeframe: [id number] Location: None Selected Ordered By: Dr. Jeff Gerber Referrals / Follow Up: Enrike Dobbins Chi, MD [Primary Care Provider] - Disposition Disposition (needs filled in before D/C Order can be placed): Home, Self Care
--- NOTE | 2022-02-10 15:55 | PCM.DC.SUM ---
Providers Date of Admission: 02/08/22 Date of Discharge: 02/10/22 Primary Care Physician: Dr. Enrike Dobbins MD Reason For Visit: RT CAROTID ENDARTERECTOMY Diagnosis Discharge Diagnosis (1) Carotid stenosis, right: Status: Chronic Code(s): I65.21 - Occlusion and stenosis of right carotid artery Plan: S/p right carotid endarterectomy Medications at Discharge Home Medications alprazolam 0.25 mg tablet 0.25 tab PO QHS jaw pain 05/24/16 aspirin 81 mg tablet,delayed release 81 mg PO QHS heart health 05/24/16 Lipitor 40 mg tablet (atorvastatin) 40 mg PO QDAY cholesterol #90 tabs 09/13/21 isosorbide mononitrate 30 mg tablet,extended release 24 hr 30 mg PO BID heart 10/05/21 amiodarone 200 mg tablet 100 mg PO DAILY heart 01/26/22 hydrochlorothiazide 25 mg tablet 25 mg PO DAILY bp 01/26/22 metoprolol succinate 50 mg tablet,extended release 24 hr 50 mg PO BID bp 01/26/22 potassium chloride 20 mEq oral packet 20 meq PO BID supplement 01/26/22 nitroglycerin 0.4 mg sublingual tablet 0.4 mg sublingual UD PRN Cardiac/Chest Pain #90 tabs 02/03/22 Zestril 20 mg tablet (lisinopril) 20 mg PO BID Must be name brand #180 tabs 02/08/22 Hospital Course Operations - (Right Carotid Endarterectomy) Summary of Care Provided Hospital Course: Patient was routinely admitted following right carotid endarterectomy performed on 02/08/2022 for hemodynamic and neurologic monitoring. The operation proceeded as expected without incident. Patient tolerated the procedure well and remained hemodynamically and neurologically stable throughout her hospital course. The surgical drain placed at time of operation was removed without issue on POD 1. At time of discharge, she was hemodynamically stable and her incision site was clean and intact with no bleeding, hematoma or significant swelling. She was not noted to have any hoarseness of her voice, tongue deviation, or other neurologic deficit. She had no complaints, denied pain, headache, chest pain, shortness of breath. She felt comfortable with discharge to her home where she lives independently without reported issue. Her niece and nephew will provide transportation and be available to assist her as needed. She was offered prescription pain medication for home, but patient adamantly declined. She will use tylenol as needed for pain at home. She understands restrictions and return precautions. She will follow-up in vascular surgery office in two weeks. 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 Cardio regular rate and regular rhythm Extremity normal to inspection, full ROM, no clubbing, cyanosis or edema and no calf tenderness Skin no rashes or lesions noted Skin Narrative: Surgical site incision to right neck appears clean, minimal swelling, drain removed. Weight / BMI Weight Weight: 128 lb 11.999 oz Body Mass Index (BMI) 24.2 ABG / Lab / Microbiology Data Result Diagrams: 02/09/22 03:30 02/09/22 03:30 D/C Instructions Discharge Diet: No restrictions May shower in (days): 2 May resume sexual activity in: No Restrictions Weight Bearing Status: Weight bearing as tolerated Call your doctor if your incision/area has: Sudden Increased Bleeding, Increased Pain/ Swelling and Foul Smelling Discharge Call your doctor if you observe: Fever of 101 or Higher Cleanse incision/area with: Soap & Water Additional Dressing/Incision Instructions: Surgical glue is protecting the incision site, this will peel off on its own over the course of 1-2 weeks. Do not submerge the incision site in water for 3 weeks. Please Follow Up With: Mitchel Khan MD When: 02/23/2022 at 10:30 AM Meaningful Use Info Meaningful Use Diagnoses (Choose all that apply): None applicable Discharge Plan Admission Admit Date/Time: 02/08/22 05:11 Primary Reason for Your Visit: Right Carotid Endarterectomy Attending Provider: Mitchel Khan Primary Care Provider: Enrike Dobbins [employer] Providers: Mignon Stephens Instructions Additional Instructions / Restrictions: You may shower in 2 days. Do not submerge incision in water/take a bath for 3 weeks. Do not lift anything greater than 20 pounds for 3 weeks. Keep incision site clean and dry. Monitor for severe headache and symptoms of stroke such as significant one-sided weakness, total loss of vision in one eye, asymmetry of the face, and slurred speech. If these occur, present to the emergency room. As requested will not send in prescription for pain medication. Recommend scheduled tylenol every 4-6 hours for pain. Return to the vascular surgery office for your appointment on 02/23/2022 at 10:30 AM. Discharge Orders/Prescriptions Prescriptions: Continued isosorbide mononitrate 30 mg tablet extended release 24 hr 30 mg PO BID Rx Instructions: Must be white pill not red pill nitroglycerin 0.4 mg tablet, sublingual 0.4 mg SUBLINGUAL UD MDD Q5min prn PRN (Reason: Cardiac/Chest Pain) Qty: 90 6RF aspirin 81 MG tablet,delayed release (DR/EC) 81 mg PO QHS alprazolam 0.25 MG tablet 0.25 tab PO QHS Label Comments: for jaw, takes in the late evening amiodarone 200 mg tablet 100 mg PO DAILY metoprolol succinate 50 mg tablet extended release 24 hr 50 mg PO BID Rx Instructions: MUST BE BRAND NAME MEDICATION hydrochlorothiazide 25 mg tablet 25 mg PO DAILY potassium chloride 20 mEq Packet 20 meq PO BID atorvastatin [Lipitor] 40 mg tablet 40 mg PO QDAY Qty: 90 4RF Rx Instructions: Must be Brand Name, no generic. lisinopril [Zestril] 20 mg tablet 20 mg PO BID Qty: 180 3RF Other Ambulatory Orders: 12 Lead EKG (Routine) Timeframe: [id number] Location: None Selected Ordered By: Dr. Jeff Gerber Referrals / Follow Up: Enrike Dobbins Chi, MD [Primary Care Provider] - Disposition Disposition (needs filled in before D/C Order can be placed): Home, Self Care Charges/Coding Visit Charges Inpatient E&M: 94570 Disch Hosp
== END 2022-02-10 14:02 | disposition home or self-care (01) | DRG 38 ==
LOC: ACINP 05:13 → ICU 11:19
PROVIDERS: Admitting Provider Surgery Trauma Surgery; PCP Family Medicine Geriatric Medicine; Referring Provider Surgery Trauma Surgery; Visit Provider Surgery Trauma Surgery
PROC: 03CM0ZZ Extirpation of Matter from Right External Carotid Artery, Open Approach (ICD-10-PCS; CPT 35301; principal; 2022-02-08 07:10)
DX: I65.21 Occlusion and stenosis of right carotid artery (principal); I47.20 Ventricular tachycardia, unspecified; I48.0 Paroxysmal atrial fibrillation; E78.00 Pure hypercholesterolemia, unspecified; I25.10 Atherosclerotic heart disease of native coronary artery without angina pectoris; I10 Essential (primary) hypertension; I25.5 Ischemic cardiomyopathy; Z87.891 Personal history of nicotine dependence; Z79.82 Long term (current) use of aspirin; Z95.810 Presence of automatic (implantable) cardiac defibrillator
CPT/HCPCS: 36415; 80048; 83735; 84100; 85025; 85027; 85347; 86850; 86900; 86901; 88304; 88311; 93005; 97162; 97166; 97802; J7040; J7120; A4216; J2405; J7799

== ENCOUNTER 2022-02-19 16:07 | Inpatient (IN) | payer MEDICARE, BC, SELFPAY ==
[2022-02-19 16:08] VITALS: BP 144/101; PULSE 100; RESP 20; TEMP 36.7; O2SAT 98; BMI 25.1
[2022-02-19 16:20] VITALS: BP 149/97
--- NOTE | 2022-02-19 16:38 | EDS_ITS ---
HPI History of Present Illness Chief Complaint: Weakness Informant: patient Onset/Context/Timing Onset: Days Context: Gradual Onset Timing: Continuous Current Severity: Mild Maximum Severity: Mild Narrative Narrative: 81-year-old female status post recent right carotid endarterectomy she was hospitalized for 3 days was discharged home. She has a history of A. fib, [place], defibrillator, TIA. Said since Sunday she has had diffuse body aches. She denies nausea, vomiting or diarrhea. No fever or chills. She has had a nonproductive cough and is just felt weak all over. She also has a pain in her left shoulder to the point where it is difficult to move the shoulder due to the discomfort. She denies any falls or trauma. No redness or swelling. Says she has had difficulty sleeping and even getting around her house. She denies any dysuria. Prior similar symptoms: No Recent Illness/Hospitalization: Yes [facility] Medical History Acute gouty arthritis Anxiety Arthritis Atherosclerotic heart disease of [place] coronary artery without angina pectoris Atrial fibrillation Back pain Back problem Bladder cancer Bladder disease Bladder tumor Cancer Cardiology follow-up encounter Carotid stenosis, right Cellulitis of right upper extremity Chronic dental infection Difficulty chewing Erythrocytosis Essential hypertension Essential hypertension Former smoker GI bleed High cholesterol History of echocardiogram History of heart attack History of irregular heartbeat History of pacemaker History of stress test Hyperlipidemia Hypocalcemia Hypokalemia ICD (implantable cardioverter-defibrillator) discharge Ischemic cardiomyopathy Long-term use of high-risk medication Old myocardial infarction (~1997) Polycythemia vera Presence of cardiac defibrillator (~2005) Presence of stent in coronary artery (~10/02/17) Right WRIST monoarticular arthritis TIA (transient ischemic attack) Tobacco abuse Ventricular tachycardia Wears dentures Wears glasses Home Medications alprazolam 0.25 mg tablet 0.25 tab PO QHS jaw pain 05/24/16 [History Last Taken 02/07/22] aspirin 81 mg tablet,delayed release 81 mg PO QHS heart health 05/24/16 [History Last Taken 01/30/22] Lipitor 40 mg tablet (atorvastatin) 40 mg PO QDAY cholesterol #90 tabs 09/13/21 [Rx Last Taken 02/07/22] isosorbide mononitrate 30 mg tablet,extended release 24 hr 60 mg PO BID heart 10/05/21 [History Last Taken 02/08/22] amiodarone 200 mg tablet 100 mg PO DAILY heart 01/26/22 [History Last Taken 02/08/22] hydrochlorothiazide 25 mg tablet 25 mg PO DAILY bp 01/26/22 [History Last Taken 02/08/22] metoprolol succinate 50 mg tablet,extended release 24 hr 50 mg PO BID bp 01/26/22 [History Last Taken 02/08/22] potassium chloride 20 mEq oral packet 20 meq PO BID supplement 01/26/22 [History Last Taken 02/07/22] nitroglycerin 0.4 mg sublingual tablet 0.4 mg sublingual UD PRN Cardiac/Chest Pain #90 tabs 02/03/22 [Rx Last Taken Unknown] clonidine HCl 0.1 mg tablet 20 mg PO QHS 02/19/22 [History Last Taken Unknown] lisinopril 20 mg tablet 20 mg PO DAILY 02/19/22 [History Last Taken Unknown] Allergy/AdvReac Type Severity Reaction Status Date / Time amlodipine Allergy Severe rash Verified 02/19/22 16:11 doxazosin [From Cardura] AdvReac Severe Itching Verified 02/19/22 16:11 Influenza Virus Vaccines AdvReac Unknown Verified 02/19/22 16:11 Family History Mother Heart disease Myocardial infarction Brother Cancer CAD (coronary artery disease) Brother CAD (coronary artery disease) Brother CAD (coronary artery disease) Surgical History H/O cataract extraction History of back surgery History of back surgery History of cataract extraction History of cholecystectomy History of implantable cardiac defibrillator (ICD) History of mandibular surgery History of mandibular surgery Hx of cholecystectomy ICD SURGERY Presence of coronary angioplasty implant and graft (~10/02/17) Social History Smoking Status: Former smoker how long ago did patient quit smokin years ago alcohol intake: current alcohol intake frequency: holidays/special occasions only Alcohol type: wine caffeine: Yes Type: coffee Number of servings: 4 ROS ROS ED ROS Narrative Nonproductive cough. Weakness. Atraumatic left shoulder pain. Review of Systems ROS Unobtainable: Denies due to encephalopathy Constitutional Constitutional ED: Denies chills or fever(s) Eyes Eyes: Denies blurry vision ENT ENT ED: Denies ear pain Cardiovascular Cardiovascular: Denies chest pain or palpitations Respiratory/Chest Respiratory/Chest: Reports cough; Denies dyspnea Gastrointestinal Gastrointestinal: Denies abdominal pain, constipation, diarrhea, melena, nausea or vomiting Genitourinary Genitourinary ED: Denies dysuria or hematuria Musculoskeletal Musculoskeletal: Reports arthralgias and myalgias Integumentary Denies abscess or Abrasions Neurologic Neurologic: Denies headache(s) Psychiatric Psychiatric: Denies anxiety Endocrine Endocrinology: Denies cold intolerance Hematologic/Lymphatic Hematologic/Lymphatic: Reports none; Denies anemia Allergic/Immunologic Allergic/Immunologic ED: Denies mouth swelling, tongue swelling or urticaria EXAM Physical Exam Narrative Exam Narrative: 7-year-old female no acute distress. Vital signs stable afebrile. Pulse ox 90% on room air no hypoxia. H EENT exam unremarkable except for dry mucous membranes. Neck nontender no lymphadenopathy. Well-healing right carotid endarterectomy incision. Dry and clean. Lungs clear to auscultation bilaterally. Dry cough. Heart regular rhythm rate about 100. Abdomen soft nontender. Moving all 4 extremities. Tender to the left shoulder. No redness or warmth. She has normal donor floor technician strength bilaterally. Normal flexion-extension of the wrist and left elbow. She does not want to move the left shoulder due to pain. There is no obvious fracture or dislocation. There is no signs of a septic joint. Back nontender. Neurologically she is awake and alert with no focal motor deficits. Both lower extremities calves are nontender without edema. Const Vital Signs: 02/19/22 16:08 02/19/22 16:20 02/19/22 16:20 Temperature 98.0 F Temperature Source Temporal Pulse Rate 100 Respiratory Rate 20 H Respiratory Effort Normal Non-Labored Respiratory Pattern Normal Blood Pressure 144/101 H 149/97 H Blood Pressure Mean 115 114 Pulse Ox 98 Oxygen Delivery Method Room Air Positive well nourished and well developed; Negative for obese, cachectic, contractures or unkempt General Appearance ED: well developed and NAD; Negative for unkempt, cachectic, contractures, cyanotic or diaphoretic Nutritional Appearance: Negative for cachectic or obese HEENT Reports dry mucous membranes; Denies moist mucous membranes Negative for trauma or tenderness Mouth ED: Yes dry mucous membranes Mouth: dry mucous membranes Eyes PERRL and EOMs intact bilaterally General Eye ED: Negative for pale conjunctiva or scleral icterus Neck no lymphadenopathy, supple and no JVD General: Negative for tenderness Lymph Lymphatic: Negative for other Chest Wall inspection of chest normal and palpation of chest normal Chest: Negative for other Resp normal respiratory effort and clear to auscultation bilaterally Effort and Inspection: Negative for retractions or pain with movement Auscultation: Negative for rales, rhonchi or wheezes Cardio regular rate, S1 normal heart sound, S2 normal heart sound and no murmurs GI normal to inspection, nondistended, normoactive bowel sounds, non-tender, non- distended and no masses; Negative for hepatosplenomegaly Inspection: Negative for abdominal distention Auscultation: normoactive bowel sounds Palpation: soft; Negative for tender or guarding Back/Spine no CVA tenderness General Back: Negative for CVA tenderness Cervical Spine: Negative for cervical spine tenderness Thoracic Spine / Upper Back: Negative for thoracic spinal tenderness Lumbar Spine / Lower Back: Negative for lumbar spinal tenderness Extremity Negative for normal to inspection Extremity Narrative: Tenderness left shoulder. No redness or swelling. No warmth. No septic joint. No dislocation or fracture. General Extremety ED: Negative for edema or tenderness General Extremity: Negative for edema Neuro oriented x3 and CN's II-XII intact bilaterally Sensorium / Orientation: alert; Negative for orientation impaired, lethargic or stuporous Motor Exam: strength 5/5 throughout Psych mental status grossly normal Appearance: Negative for unkempt Attitude: No agitated Mood & Affect: Negative for depressed, anxious or tearful Skin no rashes or lesions noted and no wounds General Skin Exam: Negative for elasticity normal Lesions: No lesion noted Rashes: No rashes noted Trauma: Negative for abrasion Wounds: Negative for wounds noted MDM MDM MDM Narrative Medical decision making narrative: 81-year-old female generalized weakness with a cough this could be just a viral URI versus influenza versus COVID versus pneumonia. Chest x-ray and labs are being obtained. She also has a traumatic she pain in her left shoulder with trouble moving the shoulder which could be arthritis or gout. X-ray will be obtained. Patient also be treated with IV fluids. Multiple repeat exams no significant change. She has had improvement in the left shoulder discomfort after an intra-articular injection of Kenalog and lidocaine. Lab Data Attestation: I reviewed the patient's lab results. Lab results narrative: CBC showed an elevated white count at 19.5 her last set of labs from this facility showed a normal white count. Her H&H is 15.2 and 45. Platelets of 367. Electrolytes show a sodium 132. Potassium 3.3. Gap at 9. Normal BUN and creatinine. Normal liver enzymes. Glucose 160. Rapid COVID-negative. Influenza negative. Suspect UA negative. Urinalysis is negative. Blood cultures were sent and are pending. Labs: Laboratory Results - last 24 hr 02/19/22 02/19/22 02/19/22 16:47 16:47 17:45 WBC 19.5 H RBC 5.67 H Hgb 15.2 H Hct 45.1 MCV 79.5 L MCH 26.8 L MCHC 33.7 RDW Std Deviation 43.0 RDW Coeff of [place] 14.8 H Plt Count 367 MPV 9.1 Immature Gran % (Auto) 0.600 Neut % (Auto) 86.7 H Lymph % (Auto) 3.7 L [place] % (Auto) 8.7 Eos % (Auto) 0.0 Baso % (Auto) 0.3 Absolute Neuts (auto) 16.9 H Absolute Lymphs (auto) 0.72 L Nucleated RBC % 0 Differential Comment SCANNED Diff Path Review May foll Sodium 132 L Potassium 3.3 L Chloride 96 L Carbon Dioxide 27.0 Anion Gap 9 BUN 14 Creatinine 0.91 Estim Creat Clear Calc 34.24 Est GFR (MDRD) Af Amer 76 Est GFR (MDRD) Non-Af 63 BUN/Creatinine Ratio 15.5 Glucose 160 H Calcium 8.9 Total Bilirubin 1.20 H AST 16 ALT 18 Alkaline Phosphatase 98 Total Protein 7.2 Albumin 3.0 L Globulin 4.2 Albumin/Globulin Ratio 0.7 L Urine Color Yellow Urine Clarity Clear Urine pH 7.0 Ur Specific [place] 1.010 Urine Protein 30 H Urine Glucose (UA) Normal Urine Ketones 15 H Urine Occult Blood 25 H Urine Nitrite Negative Urine Bilirubin Negative Urine Urobilinogen 1 H Ur Leukocyte Esterase Negative Urine RBC 0-5 SEEN Urine WBC 0-5 SEEN Ur Squamous Epith Cells 0 SEEN Urine Bacteria 0 SEEN Urine Mucus 0 SEEN Radiography Chest X-Ray - ED: 1 View, Read by ED Physician, Heart, Lungs, Mediastinum, Bony Structures, No Acute Disease and Chronic Changes Diagnostic Testing: Clinical Impression(s) from Imaging Studies Chest X-Ray 02/19/22 17:15 IMPRESSION: No acute cardiopulmonary disease. No significant interval change. Electronically Signed: Yesenia Carbajal MD at 18:08 EST Reading Location ID and State: [place] , Service support , Shoulder X-Ray 02/19/22 17:15 IMPRESSION: Progression of glenohumeral degenerative changes. Stable degenerative changes acromioclavicular joint. Previously seen periarticular soft tissue calcification have resolved. Electronically Signed: Yesenia Carbajal MD at 18:07 EST Reading Location ID and State: [place] , Service support , Chest x-ray, portable, single view interpreted by myself shows no acute abnormality. Chronic changes. Left-sided pacemaker defibrillator. No infiltrates. Left shoulder x-ray, full review, interpreted by myself shows no acute abnormality. Chronic arthritic changes. No fracture or dislocation. Rhythm Strip Rhythm Strip: Sinus Rhythm Rate: 89 Ectopy: PVC(s) EKG Initial EKG: Attestation: I personally reviewed and interpreted this EKG as follows: Interpretation: Sinus Rhythm and No Acute Injury Pattern Comments: Normal sinus rhythm rate 89. No acute signs of KS or ischemia. LVH. PVCs. Procedures Other Procedures Procedure(s): Left shoulder joint injection. Patient having shoulder pain worse with movement. No signs of a septic joint. Is not red, hot or swollen. Patient reportedly been worked up for gout in the past which was negative according to her. She and I discussed a shoulder injection. Left shoulder was cleaned using alcohol wipes. Using a lateral approach I placed approximately 10 cc of lidocaine and Kenalog 40 mg in the left shoulder joint. She tolerated it well. Again it was cleaned with alcohol and a band aid was applied. Discharge Plan Triage Chief Complaint: Weakness ED Provider: Neto Sanchez Dx/Rx/DC Orders Clinical Impression: Leukocytosis, Weakness, History of atrial fibrillation, History of right-sided carotid endarterectomy Prescriptions: No Action isosorbide mononitrate 30 mg tablet extended release 24 hr 60 mg PO BID Rx Instructions: Must be white pill not red pill nitroglycerin 0.4 mg tablet, sublingual 0.4 mg SUBLINGUAL UD MDD Q5min prn PRN (Reason: Cardiac/Chest Pain) Qty: 90 6RF aspirin 81 MG tablet,delayed release (DR/EC) 81 mg PO QHS alprazolam 0.25 MG tablet 0.25 tab PO QHS Label Comments: for jaw, takes in the late evening amiodarone 200 mg tablet 100 mg PO DAILY metoprolol succinate 50 mg tablet extended release 24 hr 50 mg PO BID Rx Instructions: MUST BE BRAND NAME MEDICATION hydrochlorothiazide 25 mg tablet 25 mg PO DAILY potassium chloride 20 mEq Packet 20 meq PO BID lisinopril 20 mg tablet 20 mg PO DAILY Label Comments: TAKE 1 TABLET BY MOUTH TWICE A DAY clonidine HCl 0.1 mg tablet 20 mg PO QHS Label Comments: TAKE 1 TABLET BY MOUTH EVERY MORNING AT BEDTIME atorvastatin [Lipitor] 40 mg tablet 40 mg PO QDAY Qty: 90 4RF Rx Instructions: Must be Brand Name, no generic. Primary Care Provider: Enrike Dobbins Chi Referrals: Enrike Dobbins Chi, MD [Primary Care Provider] - Disposition Disposition: Acute Care Hospital [facility]
[2022-02-19] MEDS: 0.9% Normal Saline 1,000 ML 999 ML IV (16:51)
[2022-02-19 16:54] LABS: Absolute Lymphocyte Count 0.72 X10^3/uL (0.83-4.51); Absolute Neutrophil Count 16.9 X10^3/uL (2.0-7.7); Basophil# 0.05 X10^3/uL; Basophil% 0.3 % (0-1); Hematocrit 45.1 % (37-47); Hemoglobin 15.2 g/dL (12.0-15.0); Lymphocyte # 0.72 X10^3/ul (0.83-4.51); Lymphocyte % 3.7 % (19-41); Mean Corp Hgb Conc 33.7 g/dL (32-36); Mean Corpuscular Hgb 26.8 pg (27.0-32.0); Mean Corpuscular Volume 79.5 fL (81-99); Mean Platelet Vol. 9.1 fl (6.2-12.0); Monocyte# 1.69 X10^3/uL; Monocyte% 8.7 % (0-10); NRBC Flagged by Analyzer 0 % (0-5); Neutrophil # 16.89 X10^3/uL (2.7-7.7); Neutrophil % 86.7 % (47-70); POSITIVE DIFFERENTIAL YES; Platelet Count 367 K/mm3 (150-450); RBC Distribution Width CV 14.8 % (11.6-14.6); Red Blood Count 5.67 M/mm3 (4.2-5.4); White Blood Count 19.5 K/mm3 (4.4-11.0)
[2022-02-19 17:06] LABS: Differential Indicated SCAN CRITERIA MET
--- NOTE | 2022-02-19 17:15 | RAD_ITS ---
STUDY: X-RAY - LEFT SHOULDER REASON FOR EXAM: Female, 81 years old. atraumatic left shoulder pain TECHNIQUE: 4 view(s) of the shoulder. COMPARISON: 06/26/2018 FINDINGS: There is moderate to severe degenerative arthrosis of the glenohumeral articulation. There is degenerative arthrosis of the acromioclavicular joint without inferior osseous spur formation. Normal acromion. Normal humeral head and visualized proximal humerus. Superimposed pacer pack. Normal visualized pulmonary apex. RAD/Shoulder min 2 Views IMPRESSION: Progression of glenohumeral degenerative changes. Stable degenerative changes acromioclavicular joint. Previously seen periarticular soft tissue calcification have resolved. Electronically Signed: Yesenia Carbajal MD at 18:07 EST Reading Location ID and State: , Service support ,
--- NOTE | 2022-02-19 17:15 | RAD_ITS ---
STUDY: X-RAY CHEST REASON FOR EXAM: Female, 81 years old. cough TECHNIQUE: Single AP portable view of the chest. COMPARISON: 03/31/2020 FINDINGS: There are superimposed monitor leads. There is an anterior chest wall single chamber permanent pacemaker. Stable calcification right upper lung parenchyma. Echo focal There is no demonstrated pleural abnormality. Normal size heart. Normal mediastinum and wili. Normal visualized pulmonary arteries. There is atherosclerotic calcification of the aortic arch with tortuosity. There is demineralization of the osseous structures. There are degenerative changes of the acromioclavicular joints. There is no demonstrated abnormality of the visualized soft tissue structures of the upper abdomen. RAD/Chest 1 View (Portable) IMPRESSION: No acute cardiopulmonary disease. No significant interval change. Electronically Signed: Yesenia Carbajal MD at 18:08 EST Reading Location ID and State: , Service support ,
[2022-02-19 17:18] LABS: ALB/GLOB Ratio 0.7 RATIO (0.9-2.4); AST(SGOT) 16 U/L (15-37); Alanine Aminotransfer ALT/SGPT 18 U/L (13-56); Alkaline Phosphatase 98 U/L (45-117); Anion Gap 9 (5-15); BUN 14 mg/dL (7-18); BUN/Creat Ratio 15.5 RATIO (10-20); Calcium,Total 8.9 mg/dL (8.5-10.1); Chloride 96 mmol/L (98-107); Creatinine, Serum 0.91 mg/dL (0.55-1.02); EST Glomerular Filtration Rate 63 mL/min (>60); Est Glom Filt Rate - Afr Amer 76 mL/min (>60); Estimated Creatinine Clearance 34.24 ml/min; Globulin 4.2 g/dL (2.2-4.2); Glucose 160 mg/dL (74-106); Potassium 3.3 mmol/L (3.5-5.1); Protein, Total 7.2 g/dL (6.4-8.2); Sodium Level 132 mmol/L (136-145)
[2022-02-19 17:29] LABS: Differential Comment SCANNED
[2022-02-19 17:54] LABS: Bacteria 0 SEEN /hpf (None Seen); Mucous, Urine 0 SEEN /hpf (<or=2+); Squamous Epithelial Cells - UA 0 SEEN /hpf (5-10)
[2022-02-19 17:55] LABS: Color, Urine Yellow (Yellow); Glucose, Dipstick Normal (Normal); Ketone-Dipstick 15 mg/dl (Negative); Leukocyte Esterase-Dipstick Negative /ul (Negative); Nitrite-Dipstick Negative (Negative); Occult Blood-Urine 25 /ul (Negative); Protein-Dipstick 30 mg/dl (Negative); Urine Bilirubin Dipstick Negative (Negative); Urine Clarity Clear (Clear); Urine Urobilinogen 1 mg/dl (Normal)
[2022-02-19 18:26] LABS: Red Blood Cells-Urine 0-5 SEEN /hpf (0-5); White Blood Cells 0-5 SEEN /hpf (0-5)
[2022-02-19] MEDS: Triamcinolone Acetonide 40 MG/ML Vial INTRAARTIC (18:55)
[2022-02-19] MEDS: Lidocaine 1% (20 ml mdv) 20 ML Vial 10 ML INFILT (18:55)
--- NOTE | 2022-02-19 19:00 | HP.PCM.HOS_ITS ---
HPI - General General Date of Admission: 02/19/22 Date of Service: 02/19/22 Chief Complaint: Cough, myalgia, shoulder pain. HPI Narrative The patient is an 81 y/o F w/ PMHx: Chronic hyponatremia, OA, Anxiety and Deperssion, Hx Bladder CA, CAD w/ Hx DE s/p PCI, Ischemic cardiomyopathy s/p AICD placement, PCV, PAF, Carotid disease s/p R CEA, Former tobacco use, HTN, HLD, Hx TIA, recent 02/08/22 admission for R CEA who [facility] with history of progressively worsening weakness, fatigue since recent surgery over the last week with onset of bodyaches, non-productive cough, L shoulder discomfort above her OA baseline with decreased movement ability as a result with no recent falls or trauma prompting ED evaluation. She notes she has had difficulty sleeping or even functioning in her own home. She denies any rec ent fevers, chills, urinary symptoms, N/V/D. She denies having ill contacts and reports not going out from her home often but she does report having visitors to her home. Work-up in the ED included T 98, HR 100, BP 144/101, RR 20, 98% on RA, CBC w/ WBC 19.5, Hgb 15.2, Plts 367 with L shift and lymphopenia, CMP with Na 132, K 3.3, Chl 96, glucose 160, T bili 1.20, hepatic profile otherwise unremark able, UA unremarkable for UTI, CXR with no acute cardiopulmonary findings, plain film of the L shoulder with progression of glenohumeral degenerative changes, stable degenerative changes acromioclavicular joint with no acute findings, Bld Cx x 2 pending per ED, rapid SARS COVID and influenza negative. In the ED patient administered NS 1L bolus, intraarticular injection performed with lidocaine and triamcinolone per ED physician. COUNT INCLUDES THE [facility] Medical History Acute gouty arthritis Anxiety Arthritis Atherosclerotic heart disease of [place] coronary artery without angina pectoris Atrial fibrillation Back pain Back problem Bladder cancer Bladder disease Bladder tumor Cancer Cardiology follow-up encounter Carotid stenosis, right Cellulitis of right upper extremity Chronic dental infection Difficulty chewing Erythrocytosis Essential hypertension Essential hypertension Former smoker GI bleed High cholesterol History of echocardiogram History of heart attack History of irregular heartbeat History of pacemaker History of stress test Hyperlipidemia Hypocalcemia Hypokalemia ICD (implantable cardioverter-defibrillator) discharge Ischemic cardiomyopathy Long-term use of high-risk medication Old myocardial infarction (~1997) Polycythemia vera Presence of cardiac defibrillator (~2005) Presence of stent in coronary artery (~10/02/17) Right WRIST monoarticular arthritis TIA (transient ischemic attack) Tobacco abuse Ventricular tachycardia Wears dentures Wears glasses Home Medications alprazolam 0.25 mg tablet 0.25 tab PO QHS jaw pain 05/24/16 [History Last Taken 02/07/22] aspirin 81 mg tablet,delayed release 81 mg PO QHS heart health 05/24/16 [History Last Taken 01/30/22] Lipitor 40 mg tablet (atorvastatin) 40 mg PO QDAY cholesterol #90 tabs 09/13/21 [Rx Last Taken 02/07/22] isosorbide mononitrate 30 mg tablet,extended release 24 hr 60 mg PO BID heart 10/05/21 [History Last Taken 02/08/22] amiodarone 200 mg tablet 100 mg PO DAILY heart 01/26/22 [History Last Taken 02/08/22] hydrochlorothiazide 25 mg tablet 25 mg PO DAILY bp 01/26/22 [History Last Taken 02/08/22] metoprolol succinate 50 mg tablet,extended release 24 hr 50 mg PO BID bp 01/26/22 [History Last Taken 02/08/22] potassium chloride 20 mEq oral packet 20 meq PO BID supplement 01/26/22 [History Last Taken 02/07/22] nitroglycerin 0.4 mg sublingual tablet 0.4 mg sublingual UD PRN Cardiac/Chest Pain #90 tabs 02/03/22 [Rx Last Taken Unknown] clonidine HCl 0.1 mg tablet 20 mg PO QHS 02/19/22 [History Last Taken Unknown] lisinopril 20 mg tablet 20 mg PO DAILY 02/19/22 [History Last Taken Unknown] Allergy/AdvReac Type Severity Reaction Status Date / Time amlodipine Allergy Severe rash Verified 02/19/22 16:11 doxazosin [From Cardura] AdvReac Severe Itching Verified 02/19/22 16:11 Influenza Virus Vaccines AdvReac Unknown Verified 02/19/22 16:11 Family History Mother Heart disease Myocardial infarction Brother Cancer CAD (coronary artery disease) Brother CAD (coronary artery disease) Brother CAD (coronary artery disease) Surgical History H/O cataract extraction History of back surgery History of back surgery History of cataract extraction History of cholecystectomy History of implantable cardiac defibrillator (ICD) History of mandibular surgery History of mandibular surgery Hx of cholecystectomy ICD SURGERY Presence of coronary angioplasty implant and graft (~10/02/17) Social History (Updated 02/19/22 @ 19:[address] Marielos Azul MD) household members: none Smoking Status: Former smoker how long ago did patient quit smokin years ago alcohol intake: current alcohol intake frequency: holidays/special occasions only Alcohol type: wine caffeine: Yes Type: coffee Number of servings: 4 ROS ROS Narrative Admission Review of Systems: CONSTITUTIONAL: No weight loss, fever, chills, + weakness or fatigue. HEENT: Eyes: No visual loss, blurred vision, double vision or yellow sclerae. Ears, Nose, Throat: No hearing loss, sneezing, congestion, runny nose or sore throat. SKIN: No rash or itching, lesions, wounds. CARDIOVASCULAR: No chest pain, chest pressure or chest discomfort, palpitations, edema, orthopnea, syncopal events. RESPIRATORY: + Cough without marked sputum. No shortness of breath, wheezing, hemoptysis. GASTROINTESTINAL: + anorexia, No nausea, vomiting or diarrhea, abdominal pain, melena, BRBPR. GENITOURINARY: No dysuria, frequency, urgency or retention. NEUROLOGICAL: No headache, dizziness, syncope, paralysis, ataxia, numbness or tingling in the extremities, focal weakness, change in bowel or bladder control, seizure. MUSCULOSKELETAL: + muscle, back pain, joint pain or stiffness. HEMATOLOGIC: No anemia, bleeding or bruising. LYMPHATICS: No enlarged nodes. No history of splenectomy. PSYCHIATRIC:+ history of depression or anxiety. ENDOCRINOLOGIC: No reports of sweating, cold or heat intolerance. No polyuria or polydipsia. ALLERGIES: No history of asthma, hives, eczema or rhinitis. Vital Signs Vital Signs Vital Signs: 02/19/22 16:08 02/19/22 16:20 02/19/22 16:20 Temperature 98.0 F Temperature Source Temporal Pulse Rate 100 Respiratory Rate 20 H Respiratory Effort Normal Non-Labored Respiratory Pattern Normal Blood Pressure 144/101 H 149/97 H Blood Pressure Mean 115 114 Pulse Ox 98 Oxygen Delivery Method Room Air Weight Weight: 128 lb 8.472 oz Body Mass Index (BMI) 25.1 Physical Exam Narrative Physical Examination: General: Awake, alert, oriented x 3 and cooperative, seated upright in the ED bed, not markedly ill appearing although did does occasionally cough and reports feeling in general poorly. Skin: Normal color, normal turgor, no icterus, no cyanosis, well appearing R neck s/p recent R CEA, L shoulder also well appearing, no redness or marked warmth. HEENT: AT/NC, EOMI, PERRLA, mildly dry MM, no carotid bruits or JVD noted. Lungs: Mildly diminished, > bases, appropriate effort, occasional dry cough during exam, no rales, ronchi or wheezing. Heart: Regular rate and rhythm; no gallop, rub audible. Abdomen: Soft, NTTP, ND, mildly hyperactive BS, no HSM. Extremities: No cyanosis, clubbing, or edema, see skin, also LUE/shoulder with decreased ROM primarily secondary to discomfort, no erythema or marked edema, not warm to palpation. Neurological: Patient awake, alert, oriented as noted, cognitive function intact; pupils equally reactive to light and accommodation, cranial nerves II- XII grossly normal, moving all 4 extremities; however, limited LUE movement secondary to discomfort, no focal deficits otherwise, strength moderately to severely globally decreased. Psychiatric: Affect appears mildly fatigued otherwise normal, no acute evidence of depressive or anxiety feelings. Results Lab / Micro Data Result Diagrams: 02/19/22 16:47 02/19/22 16:47 Labs: Laboratory Results - last 24 hr 02/19/22 16:47: WBC 19.5 H, RBC 5.67 H, Hgb 15.2 H, Hct 45.1, MCV 79.5 L, MCH 26.8 L, MCHC 33.7, RDW Std Deviation 43.0, RDW Coeff of [place] 14.8 H, Plt Count 367, MPV 9.1, Immature Gran % (Auto) 0.600, Neut % (Auto) 86.7 H, Lymph % (Auto) 3.7 L, [place] % (Auto) 8.7, Eos % (Auto) 0.0, Baso % (Auto) 0.3, Absolute Neuts (auto) 16.9 H, Absolute Lymphs (auto) 0.72 L, Nucleated RBC % 0, Differential Comment SCANNED, Diff Path Review June foll 02/19/22 16:47: Sodium 132 L, Potassium 3.3 L, Chloride 96 L, Carbon Dioxide 27.0, Anion Gap 9, BUN 14, Creatinine 0.91, Estim Creat Clear Calc 34.24, Est GFR (MDRD) Af Amer 76, Est GFR (MDRD) Non-Af 63, BUN/Creatinine Ratio 15.5, Glucose 160 H, Calcium 8.9, Total Bilirubin 1.20 H, AST 16, ALT 18, Alkaline Phosphatase 98, Total Protein 7.2, Albumin 3.0 L, Globulin 4.2, Albumin/Globulin Ratio 0.7 L 02/19/22 17:45: Urine Color Yellow, Urine Clarity Clear, Urine pH 7.0, Ur Specific [place] 1.010, Urine Protein 30 H, Urine Glucose (UA) Normal, Urine Ketones 15 H, Urine Occult Blood 25 H, Urine Nitrite Negative, Urine Bilirubin Negative, Urine Urobilinogen 1 H, Ur Leukocyte Esterase Negative, Urine RBC 0-5 SEEN, Urine WBC 0-5 SEEN, Ur Squamous Epith Cells 0 SEEN, Urine Bacteria 0 SEEN, Urine Mucus 0 SEEN Micro: Microbiology 02/19/22 16:47 Nasal Secretion SARS-CoV-2 & FLU Antigen (Rapid) - Final Rhythm Strip Rhythm Strip: Sinus Rhythm Rate: 89 Ectopy: PVC(s) Radiology Impression Chest X-Ray 02/19/22 17:15 IMPRESSION: No acute cardiopulmonary disease. No significant interval change. Electronically Signed: Yesenia Carbajal MD at 18:08 EST Reading Location ID and State: , Service support , Shoulder X-Ray 02/19/22 17:15 IMPRESSION: Progression of glenohumeral degenerative changes. Stable degenerative changes acromioclavicular joint. Previously seen periarticular soft tissue calcification have resolved. Electronically Signed: Yesenia Carbajal MD at 18:07 EST Reading Location ID and State: , Service support , Assessment & Plan Assessment/Plan (1) Weakness: PLAN: Plan The patient is an 81 y/o F w/ PMHx: Chronic hyponatremia, OA, Anxiety and Deperssion, Hx Bladder CA, CAD w/ Hx DE s/p PCI, Ischemic cardiomyopathy s/p AICD placement, PCV, PAF, Carotid disease s/p R CEA, Former tobacco use, HTN, HLD, Hx TIA, recent 02/08/22 admission for R CEA who [facility] with history of progressively worsening weakness, fatigue since recent surgery with onset of bodyaches, nonproductive cough, L shoulder discomfort above her OA baseline with decreased movement ability as a result with no recent falls or trauma prompting ED evaluation. #1. Myalgia, Nonproductive cough, Leukocytosis, Lymphopenia, Suspected Acute Viral Syndrome with Adult FTT: Will admit to [facility], maintain on fall precautions, given #2 PT/OT/CM consultations requested, will obtain procalcitonin as well as full respiratory viral panel, plan judicious overnight hydration given cardiomyopathy history with repeat CXR in AM to assure no developing superimposed bacterial PNA, obtain urine antigens and if onset productive sputum Cx as well. If any concern for bacterial etiology will add abx therapy. UCx and Bld Cx pending per ED. #2. Acute on Chronic L shoulder pain: Not warm or red, no fluid able to be drawn from joint per ED physician, does have leukocytosis but low suspicion for septic joint, will obtain procalcitonin to be cautious, will have PRN oral pain regimen, PRN tylenol as well as usage of topical arthritic pain compound. #3. Hyperglycemia: Admission 160, no DM history, HgbA1c pending, likely stress response/reactive. #4. Hypokalemia: Admission K 3.3, supplementation ordered, mag pending, will repeat level in AM. #5. Carotid disease: s/p R CEA 02/08/[address] Khan, no post-operative complications, well appearing surgical region, recommend continued follow-up with Vascular as previously arranged. #6. PAF: Will continue home metoprolol, amiodarone, not chronically anticoagulated per current list with history prior GI bleed. #7. CAD, Ischemic Cardiomyopathy: s/p AICD and s/p PCI w/ Hx DE, following w/ Dr. Sanchez, will continue asa, statin, metoprolol, lisinopril home regimen. ECHO last noted 04/12/17 w/ moderate segmental systolic dysfx, EF 35%, trivial MVI, trivial TVI, RVSP 25 mmHgb. #8. Hx TIA: s/p recent CEA as noted, continue asa, statin, HTN regimen as noted, pending HgbA1c given hyperglycemia. #9. Hypertension: Will continue home clonidine, metoprolol, lisinopril, HCTZ, isosorbide, PRN IV hydralazine. #10. Hyperlipidemia: Will continue home statin therapy. #11. Anxiety and Depression: Will continue home low dose ativan regimen. #12. Chronic PCV: Admission CBC w/ Hgb 15.2, continue outpatient follow-up with Hematology, Plt count normal. #13. Chronic Hyponatremia: Normocytic, unclear exact etiology but on chronic HCTZ, admission Na 132, similar to prior baseline, trend CMP. #14. Former tobacco use: Encourage continued tobacco cessation. #15. DVT prophylaxis: SCDS, lovenox. #16. CODE status: Patient AMMY is her nephew and living will is currently in place she notes. Discussed CODE status at length including difference between FULL code, DNR-CCA and DNR-CC status. Following discussions about the differences in these status, requested Full Code status. Advanced Care Planning Face to Face Time: 16 minutes. Charges/Coding Visit Charges OBSV E&M: 86946 Initial observation care L2 Procedures Hospitalists Procedures: 55267 Advncd Care Plan 30 Min
[2022-02-19 19:21] VITALS: BP 171/72; PULSE 84; RESP 16; TEMP 37; O2SAT 99
[2022-02-19 19:50] LABS: Procalcitonin 0.11 ng/mL (0.00-0.09)
[2022-02-19 20:28] VITALS: BMI 22.8
[2022-02-19 20:31] VITALS: BP 176/83; PULSE 84; RESP 18; TEMP 37.9; O2SAT 95
[2022-02-19] MEDS: Potassium Chloride Oral Tablet 20 MEQ 40 MEQ PO (21:30)
[2022-02-19] MEDS: Aspirin E.C. 81 MG Tablet PO (21:31)
[2022-02-19] MEDS: Isosorbide Mononitrate 60 MG Tablet PO (21:32)
[2022-02-19] MEDS: Arthritis Pain Compound 60 CLICK TUBE TOPICAL (21:35)
[2022-02-19 21:51] VITALS: BP 176/83; PULSE 84; RESP 18; TEMP 37.9; O2SAT 95
[2022-02-19] MEDS: 0.9% Normal Saline 1,000 ML 100 ML IV (21:58)
[2022-02-19] MEDS: ALPRAZolam 0.25 MG Tablet PO (21:59)
[2022-02-19 23:40] VITALS: O2SAT 95
[2022-02-20] VITALS (7 sets, daily range): BP systolic 122–172; BP diastolic 67–92; PULSE 65–74; RESP 16–18; TEMP 36.4–36.9; O2SAT 97–99
--- NOTE | 2022-02-20 05:10 | RAD_ITS ---
EXAM: XR CHEST, 1 VIEW CLINICAL INDICATION: Cough, leukocytosis TECHNIQUE: Frontal view of the chest. This report was created using [employer] report generation technology. COMPARISON: 02/19/2022 FINDINGS: LUNGS AND PLEURAL SPACES: Unremarkable. No consolidation or edema. No pneumothorax. No effusion. HEART: Unremarkable. Cardiac silhouette not enlarged. MEDIASTINUM: Central airways and mediastinal contour are unremarkable. BONES/JOINTS: Unremarkable. SOFT TISSUES: Unremarkable. TUBES, LINES AND DEVICES: Left chest pacer. RAD/Chest 1 View (Portable) IMPRESSION: No acute findings in the chest. Electronically Signed: Geronimo Emery MD at 6:52 EST ,
[2022-02-20] MEDS: Arthritis Pain Compound 60 CLICK TUBE TOPICAL ×3 (05:57→21:02)
[2022-02-20 06:25] LABS: Absolute Lymphocyte Count 0.58 X10^3/uL (0.83-4.51); Basophil# 0.02 X10^3/uL; Basophil% 0.1 % (0-1); Hematocrit 40.4 % (37-47); Hemoglobin 13.6 g/dL (12.0-15.0); Lymphocyte # 0.58 X10^3/ul (0.83-4.51); Lymphocyte % 4.3 % (19-41); Mean Corp Hgb Conc 33.7 g/dL (32-36); Mean Corpuscular Volume 80.3 fL (81-99); Monocyte# 0.95 X10^3/uL; NRBC Flagged by Analyzer 0 % (0-5); Neutrophil # 11.98 X10^3/uL (2.7-7.7); Neutrophil % 87.9 % (47-70); POSITIVE DIFFERENTIAL YES; Platelet Count 388 K/mm3 (150-450); RBC Distribution Width CV 14.8 % (11.6-14.6); Red Blood Count 5.03 M/mm3 (4.2-5.4); White Blood Count 13.6 K/mm3 (4.4-11.0)
[2022-02-20 06:34] LABS: Differential Indicated SCAN CRITERIA MET
[2022-02-20 07:08] LABS: ALB/GLOB Ratio 0.6 RATIO (0.9-2.4); AST(SGOT) 14 U/L (15-37); Alanine Aminotransfer ALT/SGPT 16 U/L (13-56); Albumin, Serum 2.5 g/dL (3.2-5.0); Alkaline Phosphatase 86 U/L (45-117); Anion Gap 8 (5-15); BUN 14 mg/dL (7-18); BUN/Creat Ratio 22.3 RATIO (10-20); Calcium,Total 8.8 mg/dL (8.5-10.1); Chloride 101 mmol/L (98-107); Creatinine, Serum 0.63 mg/dL (0.55-1.02); EST Glomerular Filtration Rate 96 mL/min (>60); Est Glom Filt Rate - Afr Amer 117 mL/min (>60); Estimated Creatinine Clearance 31.15 ml/min; Globulin 4.1 g/dL (2.2-4.2); Glucose 119 mg/dL (74-106); Potassium 4.2 mmol/L (3.5-5.1); Protein, Total 6.6 g/dL (6.4-8.2); Sodium Level 134 mmol/L (136-145)
[2022-02-20] MEDS: Potassium Chloride Oral Tablet 20 MEQ PO ×2 (09:06→16:00)
[2022-02-20] MEDS: Lisinopril 20 MG Tablet PO (09:06)
[2022-02-20] MEDS: Metoprolol(XL)Succ 50 MG Tablet PO ×2 (09:06→21:04)
[2022-02-20] MEDS: Enoxaparin 40 MG/0.4 ML Syringe SC (09:06)
[2022-02-20] MEDS: Isosorbide Mononitrate 60 MG Tablet PO ×2 (09:07→21:01)
[2022-02-20] MEDS: Amiodarone 200 MG Tablet 100 MG PO (09:07)
[2022-02-20] MEDS: hydroCHLOROthiazide 25 MG Tablet PO (09:07)
--- NOTE | 2022-02-20 09:11 | NURSING ---
did not give prn apresoline at this time for sbp>160 because all of he other bp meds wer given at this time. will recheck bp
[2022-02-20] MEDS: Ensure Plus High Protein 120 ML LIQUID PO ×3 (09:14→15:59)
[2022-02-20 09:39] LABS: Hemoglobin A1c 5.4 % (3.8-5.6)
--- NOTE | 2022-02-20 13:20 | PCM.PN.HOSP ---
Subjective Subjective Patient does indicate that she feels much better since admission. Her body aches have improved and she reports 60 to 70% improvement overall. She does states she is however not quite ready to go home as she does live alone and is concerned about her stability. She was able to walk with physical therapy earlier today and states that she did fairly well. Her white count is dramatically better and infectious work-up thus far is unremarkable however blood cultures are still pending. Objective Data Objective Data Vital Signs: Vital Signs Temp Pulse Resp BP Pulse Ox O2 Del Method 97.5 F L 74 16 172/92 H 97 Room Air 02/20/22 09:00 02/20/22 09:06 02/20/22 09:00 02/20/22 09:00 02/20/22 09:00 02/20/22 09:00 Oxygen Delivery Method Room Air Weight: 53.155 kg Body Mass Index (BMI) 22.8 Intake & Output: Intake and Output for Last 24 Hours 02/18/22 02/19/22 02/20/22 23:59 23:59 23:59 Intake Total 1000 / 1000 805 / 805 Balance 1000 / 1000 805 / 805 Medical Nutrition Assessment Dietitian: Malnutrition Criteria Met Start: 02/20/22 11:29 Freq: Status: Active Protocol: Document 02/20/22 11:29 VIRAJ (Rec: 02/20/22 11:29 VIRAJ [id number]) Nutrition Malnutrition Evidence of Malnutrition Exists Yes Malnutrition (severe): Acute Illness/Injury Evidenced By Suboptimal Energy Intake ( Severe),Weight Loss (Severe) Clinical Problem Acute Disease or Injury Related Malnutrition Etiology related to decreased po intake since R CEA (02/10) Signs/Symptoms as evidenced by 2.5% wt loss and <50% of usual po intake x 10 days 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 Status Active Problem Recommendation Dietitian Recommendations/Changes Will liberalize diet to Regular w/ fortified foods as able d/t signs and symptoms of malnutrition Will continue ensure plus high protein 3x/day w/ medpass Lab / Micro Data Result Diagrams: 02/20/22 05:25 02/20/22 05:25 Labs: Laboratory Results - last 24 hr 02/19/22 16:47: WBC 19.5 H, RBC 5.67 H, Hgb 15.2 H, Hct 45.1, MCV 79.5 L, MCH 26.8 L, MCHC 33.7, RDW Std Deviation 43.0, RDW Coeff of [place] 14.8 H, Plt Count 367, MPV 9.1, Immature Gran % (Auto) 0.600, Neut % (Auto) 86.7 H, Lymph % (Auto) 3.7 L, [place] % (Auto) 8.7, Eos % (Auto) 0.0, Baso % (Auto) 0.3, Absolute Neuts (auto) 16.9 H, Absolute Lymphs (auto) 0.72 L, Nucleated RBC % 0, Differential Comment SCANNED, Diff Path Review June02/19/22 16:47: Sodium 132 L, Potassium 3.3 L, Chloride 96 L, Carbon Dioxide 27.0, Anion Gap 9, BUN 14, Creatinine 0.91, Estim Creat Clear Calc 34.24, Est GFR (MDRD) Af Amer 76, Est GFR (MDRD) Non-Af 63, BUN/Creatinine Ratio 15.5, Glucose 160 H, Calcium 8.9, Total Bilirubin 1.20 H, AST 16, ALT 18, Alkaline Phosphatase 98, Total Protein 7.2, Albumin 3.0 L, Globulin 4.2, Albumin/Globulin Ratio 0.7 L 02/19/22 17:45: Urine Color Yellow, Urine Clarity Clear, Urine pH 7.0, Ur Specific [place] 1.010, Urine Protein 30 H, Urine Glucose (UA) Normal, Urine Ketones 15 H, Urine Occult Blood 25 H, Urine Nitrite Negative, Urine Bilirubin Negative, Urine Urobilinogen 1 H, Ur Leukocyte Esterase Negative, Urine RBC 0-5 SEEN, Urine WBC 0-5 SEEN, Ur Squamous Epith Cells 0 SEEN, Urine Bacteria 0 SEEN, Urine Mucus 0 SEEN 02/19/22 19:15: Magnesium 2.0 02/19/22 19:15: Procalcitonin 0.11 H 02/20/22 05:25: WBC 13.6 H, RBC 5.03, Hgb 13.6, Hct 40.4, MCV 80.3 L, MCH 27.0, MCHC 33.7, RDW Std Deviation 43.0, RDW Coeff of [place] 14.8 H, Plt Count 388, MPV 10.0, Immature Gran % (Auto) 0.700, Neut % (Auto) 87.9 H, Lymph % (Auto) 4.3 L, [place] % (Auto) 7.0, Eos % (Auto) 0.0, Baso % (Auto) 0.1, Absolute Neuts (auto) 12.0 H, Absolute Lymphs (auto) 0.58 L, Nucleated RBC % 0 02/20/22 05:25: Sodium 134 L, Potassium 4.2, Chloride 101, Carbon Dioxide 25.0, Anion Gap 8, BUN 14, Creatinine 0.63, Estim Creat Clear Calc 31.15, Est GFR (MDRD) Af Amer 117, Est GFR (MDRD) Non-Af 96, BUN/Creatinine Ratio 22.3 H, Glucose 119 H, Calcium 8.8, Total Bilirubin 1.20 H, AST 14 L, ALT 16, Alkaline Phosphatase 86, Total Protein 6.6, Albumin 2.5 L, Globulin 4.1, Albumin/Globulin Ratio 0.6 L 02/20/22 05:25: Hemoglobin A1c 5.4 Micro: Microbiology 02/19/22 23:40 Mucosa - Nasopharyngeal Respiratory Panel (PCR) - Final 02/19/22 17:45 Urine Catheter - Catheter Legionella Antigen - Final 02/19/22 17:45 Urine Catheter - Catheter Streptococcus pneumoniae Antigen (M - Final 02/19/22 16:47 Nasal Secretion SARS-CoV-2 & FLU Antigen (Rapid) - Final Radiography Diagnostic Testing: Radiology Impression Chest X-Ray 02/19/22 17:15 IMPRESSION: No acute cardiopulmonary disease. No significant interval change. Electronically Signed: Yesenia Carbajal MD at 18:08 EST Reading Location ID and State: , Service support , Shoulder X-Ray 02/19/22 17:15 IMPRESSION: Progression of glenohumeral degenerative changes. Stable degenerative changes acromioclavicular joint. Previously seen periarticular soft tissue calcification have resolved. Electronically Signed: Yesenia Carbajal MD at 18:07 EST , Chest X-Ray 02/20/22 05:10 IMPRESSION: No acute findings in the chest. Electronically Signed: Geronimo Emery MD at 6:52 EST , Rhythm Strip Rhythm Strip: Sinus Rhythm Rate: 89 Ectopy: PVC(s) Physical Exam Const alert, oriented x3, no apparent distress, average body habitus and well nourished Constitutional Narrative: Very pleasant elderly white female sitting up in chair at the bedside, watching television, nontoxic HEENT head/scalp atraumatic and moist oral mucous membranes HEENT Narrative: Mild to moderate hearing deficits, Head and Scalp: normocephalic Neck Neck Narrative: postoperative right CEA incision that appears to be healing well without any signs of infection or drainage on the right neck, trachea midline, no thyroid enlargement Resp normal respiratory effort, no retractions, no use of accessory muscles and clear to auscultation bilaterally Auscultation: Negative for crackles, rhonchi or wheezes Cardio regular rate, regular rhythm, S1 normal heart sound, S2 normal heart sound, no murmurs, no rub, no gallops and no clicks GI normal to inspection, nondistended, normoactive bowel sounds, soft to palpation and non-tender Extremity no clubbing, cyanosis or edema Extremity Narrative: 2+ pedal pulses Neuro oriented x3, CN's II-XII intact bilaterally, moves all extremities and no focal motor deficits Neuro Narrative: Mild generalized weakness-proximal greater than distal Speech: speech normal Psych affect normal Psych Narrative: Very pleasant and appropriately interactive Assessment & Plan Assessment/Plan (1) Leukocytosis: (2) Weakness: PLAN: Plan Generalized weakness/myalgia/leukocytosis/lymphopenia -Suspect viral syndrome -Patient did indicate she has had a cough for approximately 1 week that is improving -Procalcitonin is just mildly elevated at 0.11 -Cultures remain pending -Strep pneumo and Legionella antigens are negative -Respiratory viral panel is negative -Repeat chest x-ray unremarkable and patient remains on room air -Overall clinically much improved -Continue PT/OT with hopeful discharge home if patient remains stable tomorrow -White count is trending down Acute on chronic left shoulder pain -Pain is resolved at this time -Imaging negative for -Continue as needed oral medication Hypokalemia -Resolved with replacement -Repeat lab in a.m. -Mag level is 2.0 Hyperglycemia -Suspect reactive -Hemoglobin A1c was obtained and found to be 5.4 Carotid artery stenosis -CEA on 02/08/[address] Khan -Surgical area looks good overall -No signs of infection -Outpatient follow-up is already scheduled PAF -Continue home metoprolol/amiodarone -Not anticoagulated secondary to history of GI bleed CAD/ischemic cardiomyopathy -Previous PCI and follows with Dr. Sanchez -Status post AICD -Most recent echo from 2018 shows EF of 35% with moderate segmental dysfunction and trivial mitral valve insufficiency with a right ventricular systolic pressure of 25 mmHg -Continue home medications History of TIA -Continue aspirin -Continue statin -Therapy as ordered Hypertension -Continue home clonidine/metoprolol/lisinopril/HCTZ/isosorbide -As needed IV hydralazine Hyperlipidemia -Continue home statin History of chronic hyponatremia -Sodium is stable -Patient is on HCTZ at baseline and if her sodium becomes problematic would recommend discontinuation of this Chronic polycythemia -Follows with oncology -No current treatment -Recommend continued outpatient follow-up -To be related to baseline tobacco abuse History of tobacco abuse -Recommend continue sensation -Patient recently quit DVT prophylaxis -SCDs -Subcu Lovenox CODE STATUS -Full code Charges/Coding Visit Charges OBSV E&M: 55220 Subsequent observation care L2
[2022-02-20] MEDS: cloNIDine HCl 0.1 MG Tablet PO (21:00)
[2022-02-20] MEDS: ALPRAZolam 0.25 MG Tablet PO (21:00)
[2022-02-20] MEDS: Atorvastatin Calcium 40 MG Tablet PO (21:01)
[2022-02-20] MEDS: Aspirin E.C. 81 MG Tablet PO (21:01)
[2022-02-21] VITALS (7 sets, daily range): BP systolic 139–182; BP diastolic 73–76; PULSE 50–65; RESP 16–18; TEMP 36.4–36.8; O2SAT 92–100
[2022-02-21] MEDS: Arthritis Pain Compound 60 CLICK TUBE TOPICAL ×3 (05:19→21:06)
[2022-02-21 06:49] LABS: Absolute Lymphocyte Count 1.01 X10^3/uL (0.83-4.51); Absolute Neutrophil Count 17.2 X10^3/uL (2.0-7.7); Basophil# 0.02 X10^3/uL; Basophil% 0.1 % (0-1); Hematocrit 36.3 % (37-47); Hemoglobin 11.6 g/dL (12.0-15.0); Lymphocyte # 1.01 X10^3/ul (0.83-4.51); Lymphocyte % 5.2 % (19-41); Mean Corpuscular Hgb 25.9 pg (27.0-32.0); Mean Platelet Vol. 9.9 fl (6.2-12.0); Monocyte# 1.05 X10^3/uL; Monocyte% 5.4 % (0-10); NRBC Flagged by Analyzer 0 % (0-5); Neutrophil # 17.22 X10^3/uL (2.7-7.7); Neutrophil % 88.4 % (47-70); Platelet Count 446 K/mm3 (150-450); RBC Distribution Width CV 14.9 % (11.6-14.6); RBC Distribution Width SD 43.6 fl (35.1-43.9); Red Blood Count 4.48 M/mm3 (4.2-5.4); White Blood Count 19.5 K/mm3 (4.4-11.0)
[2022-02-21 07:06] LABS: Anion Gap 8 (5-15); BUN 28 mg/dL (7-18); BUN/Creat Ratio 44.2 RATIO (10-20); Calcium,Total 8.7 mg/dL (8.5-10.1); Chloride 99 mmol/L (98-107); Creatinine, Serum 0.63 mg/dL (0.55-1.02); EST Glomerular Filtration Rate 96 mL/min (>60); Est Glom Filt Rate - Afr Amer 116 mL/min (>60); Estimated Creatinine Clearance 31.15 ml/min; Glucose 102 mg/dL (74-106); Magnesium 2.2 mg/dL (1.6-2.6); Phosphorus 2.1 mg/dL (2.5-4.9); Potassium 4.1 mmol/L (3.5-5.1); Sodium Level 130 mmol/L (136-145)
[2022-02-21] MEDS: Amiodarone 200 MG Tablet 100 MG PO (10:44)
[2022-02-21] MEDS: Lisinopril 20 MG Tablet PO (10:44)
[2022-02-21] MEDS: Isosorbide Mononitrate 60 MG Tablet PO ×2 (10:44→21:06)
--- NOTE | 2022-02-21 10:44 | CASEMGMT ---
BEBO MILLER NOTE: Intro role of CM to patient and REYNAGA form explained re: Observation status for treatment of failure to thrive and viral syndrome.? Explained hospitalization will be paid per her? insurance policy for Outpatient billing?and condition will continue to be evaluated for Inpt necessity. Also let pt know that [facility] sends paper in the billing packet with their phone number if questions arise. Pt verbalizes understanding and does not have further questions. ?Form signed, copy made and placed in chart, and original given to pt. PT/OT notes reviewed. BEBO MILLER discussed discharge planning w/pt. Pt lives alone. She denies wanting any HHC for nursing or therapy, but states is interested in having an aide stay over night w/her a couple nights a week. Pt does not recall this BEBO MILLER providing a list of [employer]'s last admission and is interested in getting another list. A list was provided at this time. Pt states she will call the agencies to inform if any of them provide over night aides. She is aware it would be private-pay. She denies needs of a walker or any other DME. She states she feels safe returning home and states her nephew will most likely be who will be taking her home @ discharge. Rafal SIMENTAL RN, CM
[2022-02-21] MEDS: Enoxaparin 40 MG/0.4 ML Syringe SC (10:45)
[2022-02-21] MEDS: 0.9% Saline Lock 10 ML Syringe IV (10:46)
[2022-02-21] MEDS: Potassium Chloride Oral Tablet 20 MEQ PO ×2 (10:46→16:00)
[2022-02-21] MEDS: hydroCHLOROthiazide 25 MG Tablet PO (10:46)
[2022-02-21 14:08] LABS: Pathologist Review Reviewed
--- NOTE | 2022-02-21 14:37 | PCM.PN.HOSP ---
Subjective Subjective Overall feeling much better and states that she thinks he would likely be able to go home however she has an elevated white count still and she has a blood culture that is positive with her recent surgical intervention. I think we need to make sure her cultures are negative and all bottles prior to sending her home given her leukocytosis remains present despite her clinical improvement. Objective Data Objective Data Vital Signs: Vital Signs Temp Pulse Resp BP Pulse Ox O2 Del Method 98.2 F 62 18 139/73 H 100 Room Air 02/21/22 14:32 02/21/22 14:32 02/21/22 14:32 02/21/22 14:32 02/21/22 14:32 02/21/22 14:32 Oxygen Delivery Method Room Air Weight: 57 kg Body Mass Index (BMI) 22.8 Intake & Output: Intake and Output for Last 24 Hours 02/19/22 02/20/22 02/21/22 23:59 23:59 23:59 Intake Total 1000 / 1000 805 / 805 53.27 / 53.27 Balance 1000 / 1000 805 / 805 53.27 / 53.27 Medical Nutrition Assessment Dietitian: Malnutrition Criteria Met Start: 02/20/22 11:29 Freq: Status: Active Protocol: Document 02/20/22 11:29 VIRAJ (Rec: 02/20/22 11:29 VIRAJ [id number]) Nutrition Malnutrition Evidence of Malnutrition Exists Yes Malnutrition (severe): Acute Illness/Injury Evidenced By Suboptimal Energy Intake ( Severe),Weight Loss (Severe) Clinical Problem Acute Disease or Injury Related Malnutrition Etiology related to decreased po intake since R CEA (02/10) Signs/Symptoms as evidenced by 2.5% wt loss and <50% 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 Active Problem Recommendation Dietitian Recommendations/Changes Will liberalize diet to Regular w/ fortified foods as able d/t signs and symptoms of malnutrition Will continue ensure plus high protein 3x/day w/ medpass Lab / Micro Data Result Diagrams: 02/21/22 05:04 02/21/22 05:04 Labs: Laboratory Results - last 24 hr 02/19/22 16:47: Diff Path Review Reviewed 02/21/22 05:04: WBC 19.5 H, RBC 4.48, Hgb 11.6 L, Hct 36.3 L, MCV 81.0, MCH 25.9 L, MCHC 32.0 D, RDW Std Deviation 43.6, RDW Coeff of Hood 14.9 H, Plt Count 446, MPV 9.9, Immature Gran % (Auto) 0.900, Neut % (Auto) 88.4 H, Lymph % (Auto) 5.2 L, [place] % (Auto) 5.4, Eos % (Auto) 0.0, Baso % (Auto) 0.1, Absolute Neuts (auto) 17.2 H, Absolute Lymphs (auto) 1.01, Nucleated RBC % 0 02/21/22 05:04: Sodium 130 L, Potassium 4.1, Chloride 99, Carbon Dioxide 23.0, Anion Gap 8, BUN 28 H, Creatinine 0.63, Estim Creat Clear Calc 31.15, Est GFR (MDRD) Af Amer 116, Est GFR (MDRD) Non-Af 96, BUN/Creatinine Ratio 44.2 H, Glucose 102, Calcium 8.7, Phosphorus 2.1 L, Magnesium 2.2 Micro: Microbiology 02/20/22 21:15 Sputum, Expectorated/Coughed Gram Stain - Final 02/20/22 21:15 Sputum, Expectorated/Coughed Respiratory Culture - Preliminary Appears to be normal respiratory halle. Further studies to follow. 02/19/22 18:55 Blood Culture (Wb) - Anticubital Right Blood Culture - Preliminary 02/19/22 23:40 Mucosa - Nasopharyngeal Respiratory Panel (PCR) - Final 02/19/22 17:45 Urine Catheter - Catheter Legionella Antigen - Final 02/19/22 17:45 Urine Catheter - Catheter Streptococcus pneumoniae Antigen (M - Final 02/19/22 16:47 Nasal Secretion SARS-CoV-2 & FLU Antigen (Rapid) - Final Rhythm Strip Rhythm Strip: Sinus Rhythm Rate: 89 Ectopy: PVC(s) Physical Exam Const alert, oriented x3, no apparent distress, average body habitus and well nourished Constitutional Narrative: Very pleasant elderly white female sitting up in in bed, watching television, nontoxic, appears well HEENT head/scalp atraumatic and moist oral mucous membranes Head and Scalp: normocephalic Neck Neck Narrative: postoperative right CEA incision that appears to be healing well without any signs of infection or drainage on the right neck Resp normal respiratory effort, no retractions, no use of accessory muscles and clear to auscultation bilaterally Auscultation: Negative for crackles, rhonchi or wheezes Cardio regular rate, regular rhythm, S1 normal heart sound, S2 normal heart sound, no murmurs, no rub, no gallops and no clicks GI normal to inspection, nondistended, normoactive bowel sounds, soft to palpation and non-tender Extremity no clubbing, cyanosis or edema Extremity Narrative: 2+ pedal pulses Neuro oriented x3, moves all extremities and no focal motor deficits Speech: speech normal Psych affect normal Psych Narrative: Very pleasant and appropriately interactive Assessment & Plan Assessment/Plan (1) Leukocytosis: (2) Weakness: PLAN: Plan Generalized weakness/myalgia/leukocytosis/lymphopenia -Suspect viral syndrome -Patient did indicate she has had a cough for approximately 1 week that is improving -Procalcitonin is just mildly elevated at 0.11 -Blood cultures show 1 bottle positive for gram-positive cocci in chains -Ceftriaxone initiated -Strep pneumo and Legionella antigens are negative -Respiratory viral panel is negative -Repeat chest x-ray unremarkable and patient remains on room air -Overall clinically much improved -White count is trending down Positive blood culture -Gram-positive cocci in chains currently 1 bottle -Called micro and they will have finalized results tomorrow morning -This could be contaminant however she still has a leukocytosis with a left shift having an 88.4% neutrophilia -With her recent carotid endarterectomy and hospitalization her risk for having an infection is high and despite her clinical improvement I think we need to make sure her blood cultures are negative or having only contaminant prior to discharge especially with an ongoing leukocytosis despite her clinical improvement Acute on chronic left shoulder pain -Acute pain remains resolved -Imaging negative for -Continue as needed oral medication Hypokalemia -Solved Hyperglycemia -Suspect reactive -Hemoglobin A1c was obtained and found to be 5.4 Carotid artery stenosis -CEA on 02/08/[address] Khan -Surgical area looks good overall -No signs of infection -Outpatient follow-up is already scheduled PAF -Continue home metoprolol/amiodarone -Not anticoagulated secondary to history of GI bleed CAD/ischemic cardiomyopathy -Previous PCI and follows with Dr. Sanchez -Status post AICD -Most recent echo from 2018 shows EF of 35% with moderate segmental dysfunction and trivial mitral valve insufficiency with a right ventricular systolic pressure of 25 mmHg -Continue home medications History of TIA -Continue aspirin -Continue statin -Therapy as ordered Hypertension -Continue home clonidine/metoprolol/lisinopril/HCTZ/isosorbide -As needed IV hydralazine Hyperlipidemia -Continue home statin History of chronic hyponatremia -Sodium is stable -Patient is on HCTZ at baseline and if her sodium becomes problematic would recommend discontinuation of this Chronic polycythemia -Follows with oncology -No current treatment -Recommend continued outpatient follow-up -To be related to baseline tobacco abuse History of tobacco abuse -Recommend continue sensation -Patient recently quit DVT prophylaxis -SCDs -Subcu Lovenox CODE STATUS -Full code Charges/Coding Visit Charges OBSV E&M: 01847 Subsequent observation care L2
[2022-02-21] MEDS: Metoprolol(XL)Succ 50 MG Tablet PO (21:05)
[2022-02-21] MEDS: ALPRAZolam 0.25 MG Tablet PO (21:05)
[2022-02-21] MEDS: Aspirin E.C. 81 MG Tablet PO (21:05)
[2022-02-21] MEDS: Atorvastatin Calcium 40 MG Tablet PO (21:05)
[2022-02-21] MEDS: cloNIDine HCl 0.1 MG Tablet PO (21:05)
[2022-02-22] VITALS (8 sets, daily range): BP systolic 143–175; BP diastolic 63–95; PULSE 54–69; RESP 15–18; TEMP 36.6; O2SAT 98–100
[2022-02-22 05:36] LABS: Absolute Neutrophil Count 11.2 X10^3/uL (2.0-7.7); Basophil# 0.01 X10^3/uL; Basophil% 0.1 % (0-1); Hematocrit 35.8 % (37-47); Hemoglobin 11.7 g/dL (12.0-15.0); Lymphocyte % 7.7 % (19-41); Mean Corp Hgb Conc 32.7 g/dL (32-36); Mean Corpuscular Hgb 26.3 pg (27.0-32.0); Mean Corpuscular Volume 80.4 fL (81-99); Mean Platelet Vol. 9.5 fl (6.2-12.0); Monocyte# 0.58 X10^3/uL; Monocyte% 4.5 % (0-10); NRBC Flagged by Analyzer 0 % (0-5); Neutrophil # 11.22 X10^3/uL (2.7-7.7); Neutrophil % 86.9 % (47-70); Platelet Count 450 K/mm3 (150-450); RBC Distribution Width SD 43.9 fl (35.1-43.9); Red Blood Count 4.45 M/mm3 (4.2-5.4); White Blood Count 12.9 K/mm3 (4.4-11.0)
[2022-02-22] MEDS: Arthritis Pain Compound 60 CLICK TUBE TOPICAL ×3 (05:36→20:30)
[2022-02-22 05:58] LABS: Anion Gap 5 (5-15); BUN 24 mg/dL (7-18); BUN/Creat Ratio 34.4 RATIO (10-20); Calcium,Total 8.4 mg/dL (8.5-10.1); Chloride 104 mmol/L (98-107); EST Glomerular Filtration Rate 86 mL/min (>60); Est Glom Filt Rate - Afr Amer 103 mL/min (>60); Estimated Creatinine Clearance 31.15 ml/min; Glucose 104 mg/dL (74-106); Potassium 4.4 mmol/L (3.5-5.1); Sodium Level 134 mmol/L (136-145)
[2022-02-22] MEDS: hydroCHLOROthiazide 25 MG Tablet PO (07:46)
[2022-02-22] MEDS: Amiodarone 200 MG Tablet 100 MG PO (07:46)
[2022-02-22] MEDS: Lisinopril 20 MG Tablet PO (07:46)
[2022-02-22] MEDS: Potassium Chloride Oral Tablet 20 MEQ PO ×2 (07:47→18:01)
[2022-02-22] MEDS: Isosorbide Mononitrate 60 MG Tablet PO ×2 (07:47→20:29)
[2022-02-22] MEDS: Enoxaparin 40 MG/0.4 ML Syringe SC (07:47)
[2022-02-22] MEDS: hydrALAZINE 20 MG/ML Vial 10 MG IV (07:47)
[2022-02-22] MEDS: 0.9% Saline Lock 10 ML Syringe IV ×2 (07:49→10:09)
--- NOTE | 2022-02-22 08:19 | NURSING ---
emergency documentation initiated
--- NOTE | 2022-02-22 08:25 | ECHOD_ITS ---
Reason For Study: bacteremia Procedure This was a 2D Doppler, Color Flow transthoracic echocardiogram. The study was technically difficult. PT very anxious about the bacteremia, had a hard time lying still for exam. Exam performed portable in patient room. Left Ventricle Normal LV size. Mild segmental systolic dysfunction (see wall motion). The estimated ejection fraction is 50 %. Stage 2 diastolic dysfunction. Anterio-Basal: Hypokinetic. Lateral-Basal: Akinetic. Posterior-Basal: Hypokinetic. Mid-Anterior : Hypokinetic. Mid-Lateral : Akinetic. Mid- Posterior: Hypokinetic. Lateral [place] : Hypokinetic. Right Ventricle Normal RV size. ICD or pacer leads identified within the right ventricle. Normal systolic function. Atria The left atrium is mildly enlarged. Normal right atrium. ICD or pacer leads identified within the right atrium. No doppler evidence for ASD. Mitral Valve There is no mitral annular calcification. Mild diffuse mitral valve thickening. The mitral valve chordae are thickened and/or calcified. Trivial mitral valve insufficiency. Tricuspid Valve Normal tricuspid valve. Trivial tricuspid valve insufficiency. Right ventricular systolic pressure estimated to be 25 mmHg. Aortic Valve Trisinus/trileaflet aortic valve. Mild focal aortic valve calcification. Pulmonic Valve The pulmonic valve is not well visualized. Great Vessels Borderline enlarged aortic root. Pericardium/Pleural No pericardial effusion. MMode/2D Measurements & Calculations LVIDd: 5.3 cm IVSd: 1.2 cm Ao root diam: 3.9 cm LVIDs: 4.3 cm LVPWd: 1.3 cm RVDd: 2.9 cm FS: 18.7 % LAV(MOD-sp4): 74.9 ml LVAd ap4: 32.2 cm2 LVAd ap2: 28.9 cm2 LVLd ap4: 8.4 cm LVLd ap2: 8.3 cm EDV(MOD-sp4): 102.1 ml EDV(MOD-sp2): 86.0 ml EDV(sp4-el): 105.1 ml EDV(sp2-el): 85.4 ml LVAs ap4: 22.3 cm2 LVAs ap2: 18.4 cm2 LVLs ap4: 7.0 cm LVLs ap2: 7.4 cm ESV(MOD-sp4): 59.0 ml ESV(MOD-sp2): 42.1 ml ESV(sp4-el): 60.3 ml ESV(sp2-el): 39.0 ml EF(MOD-sp4): 42.3 % EF(MOD-sp2): 51.1 % EF(sp4-el): 42.6 % SV(MOD-sp4): 43.2 ml SV(MOD-sp2): 43.9 ml SV(sp4-el): 44.8 ml LA dimension(2D): 4.3 cm LA A4 area: 23.8 cm2 Time Measurements MV dec time: 0.24 sec Doppler Measurements & Calculations MV E max joshua: 80.6 cm/sec Lat Peak E' Joshua: 6.6 cm/sec Med Peak E' Joshua: 4.4 cm/sec MV A max joshua: 108.7 cm/sec E/E' lat: 12.1 E/E' med: 18.2 MV E/A: 0.74 MV dec slope: 336.1 cm/sec2 Ao V2 max: 150.4 cm/sec LV V1 max: 87.7 cm/sec Ao max P.1 mmHg LV V1 max P.1 mmHg Ao V2 mean: 99.5 cm/sec LV V1 mean P.6 mmHg Ao mean P.6 mmHg LV V1 mean: 60.0 cm/sec Ao V2 VTI: 30.1 cm LV V1 VTI: 22.4 cm AV (velocity ratio): 0.74 PA V2 max: 113.6 cm/sec TR max joshua: 231.6 cm/sec PA V2 mean: 78.9 cm/sec TR max P.5 mmHg ECHO/Echo Complete Interpretation Summary The study was technically difficult. Mild segmental systolic dysfunction (see wall motion). The estimated ejection fraction is 50 %. The left atrium is mildly enlarged. Mild diffuse mitral valve thickening. The mitral valve chordae are thickened and/or calcified. Trivial mitral valve insufficiency. Trivial tricuspid valve insufficiency. Mild focal aortic valve calcification. Borderline enlarged aortic root. Right ventricular systolic pressure estimated to be 25 mmHg. Stage 2 diastolic dysfunction. Ordering Physician: Madelaine Liriano Referring Physician: Enrike Dobbins Chi Performed By: Nae Guillen RDCS, RVT
--- NOTE | 2022-02-22 13:57 | CON.PCM.ID_ITS ---
Assessment & Plan Assessment/Plan (1) Leukocytosis: PLAN: Single bcx with granulicatella, paired bcx remains neg. Started on ceftriaxone 02/21. Wbc improved this AM. Sx resolved. Echo showed no veg. No fever here. Doubt veronika bacteremia, ok to keep ceftriaxone while here in the hospital and paired cx still pending. Will follow, thank you, d/w Dr. Liriano (2) Weakness: HPI Consult Data Date of Consult: 02/22/22 HPI Narrative Reason for Consultation: (+) bcx HPI Narrative: STANLEY RODRIGUEZ, is a 81 F with recent R carotid entarterectomy, presented 02/19 with 2-3 days of weakness, fatigue, aches/cramping in legs, dry cough. Was unable to get out of bed for 2-3 days. No fever or chills, no issues with surgical site, no dysuria, no sputum, no change in taste or smell. Taken to ED, admitted. Had worsened wbc and 1 of 2 bcx (+), so started on ceftriaxone 02/21. Feeling better. Full ROS performed and neg except as noted above. [facility] Medical History Acute gouty arthritis Anxiety Arthritis Atherosclerotic heart disease of [place] coronary artery without angina pectoris Atrial fibrillation Back pain Back problem Bladder cancer Bladder disease Bladder tumor Cancer Cardiology follow-up encounter Carotid stenosis, right Cellulitis of right upper extremity Chronic dental infection Difficulty chewing Erythrocytosis Essential hypertension Essential hypertension Former smoker GI bleed High cholesterol History of echocardiogram History of heart attack History of irregular heartbeat History of pacemaker History of stress test Hyperlipidemia Hypocalcemia Hypokalemia ICD (implantable cardioverter-defibrillator) discharge Ischemic cardiomyopathy Long-term use of high-risk medication Old myocardial infarction (~1997) Polycythemia vera Presence of cardiac defibrillator (~2005) Presence of stent in coronary artery (~10/02/17) Right WRIST monoarticular arthritis TIA (transient ischemic attack) Tobacco abuse Ventricular tachycardia Wears dentures Wears glasses Home Medications alprazolam 0.25 mg tablet 0.25 tab PO QHS jaw pain 05/24/16 [History Last Taken 02/07/22] aspirin 81 mg tablet,delayed release 81 mg PO QHS heart health 05/24/16 [History Last Taken 01/30/22] Lipitor 40 mg tablet (atorvastatin) 40 mg PO QDAY cholesterol #90 tabs 09/13/21 [Rx Last Taken 02/07/22] isosorbide mononitrate 30 mg tablet,extended release 24 hr 60 mg PO DAILY heart 10/05/21 [History Last Taken 02/08/22] amiodarone 200 mg tablet 100 mg PO DAILY heart 01/26/22 [History Last Taken 02/08/22] hydrochlorothiazide 25 mg tablet 25 mg PO DAILY bp 01/26/22 [History Last Taken 02/08/22] metoprolol succinate 50 mg tablet,extended release 24 hr 50 mg PO BID bp 01/26/22 [History Last Taken 02/08/22] potassium chloride 20 mEq oral packet 20 meq PO BID supplement 01/26/22 [History Last Taken 02/07/22] nitroglycerin 0.4 mg sublingual tablet 0.4 mg sublingual UD PRN Cardiac/Chest Pain #90 tabs 02/03/22 [Rx Last Taken Unknown] lisinopril 20 mg tablet 20 mg PO BID 02/19/22 [History Last Taken Unknown] Allergy/AdvReac Type Severity Reaction Status Date / Time amlodipine Allergy Severe rash Verified 02/19/22 16:11 doxazosin [From Cardura] AdvReac Severe Itching Verified 02/19/22 16:11 Influenza Virus Vaccines AdvReac Unknown Verified 02/19/22 16:11 Family History Mother Heart disease Myocardial infarction Brother Cancer CAD (coronary artery disease) Brother CAD (coronary artery disease) Brother CAD (coronary artery disease) Surgical History H/O cataract extraction History of back surgery History of back surgery History of cataract extraction History of cholecystectomy History of implantable cardiac defibrillator (ICD) History of mandibular surgery History of mandibular surgery Hx of cholecystectomy ICD SURGERY Presence of coronary angioplasty implant and graft (~10/02/17) Social History (Updated 02/19/22 @ 19:[address] Marielos Azul MD) household members: none Smoking Status: Former smoker how long ago did patient quit smokin years ago alcohol intake: current alcohol intake frequency: holidays/special occasions only Alcohol type: wine caffeine: Yes Type: coffee Number of servings: 4 Physical Exam Const alert, oriented x3 and no apparent distress General Appearance: cooperative HEENT normocephalic and head/scalp atraumatic Eyes PERRL and EOMs intact bilaterally Neck supple and No nodes Resp normal air movement and clear to auscultation bilaterally Cardio regular rate and regular rhythm GI soft to palpation, non-tender and non-distended Extremity General Extremity: Negative for edema Skin no rashes or lesions noted Neuro CN's II-XII intact bilaterally Medical Records Data Medical Nutrition Assessment Dietitian: Malnutrition Criteria Met Start: 02/20/22 11:29 Freq: Status: Active Protocol: Document 02/20/22 11:29 [facility] (Rec: 02/20/22 11:29 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 Result Diagrams: 02/22/22 04:51 02/22/22 04:51 Labs: Laboratory Results - last 24 hr 02/19/22 16:47: Diff Path Review Reviewed 02/22/22 04:51: WBC 12.9 H, RBC 4.45, Hgb 11.7 L, Hct 35.8 L, MCV 80.4 L, MCH 26.3 L, MCHC 32.7, RDW Std Deviation 43.9, RDW Coeff of Hood 15.0 H, Plt Count 450, MPV 9.5, Immature Gran % (Auto) 0.800, Neut % (Auto) 86.9 H, Lymph % (Auto) 7.7 L, [place] % (Auto) 4.5, Eos % (Auto) 0.0, Baso % (Auto) 0.1, Absolute Neuts (auto) 11.2 H, Absolute Lymphs (auto) 1.00, Nucleated RBC % 0 12/28/22 04:51: Sodium 134 L, Potassium 4.4, Chloride 104, Carbon Dioxide 25.0, Anion Gap 5, BUN 24 H, Creatinine 0.70, Estim Creat Clear Calc 31.15, Est GFR (MDRD) Af Amer 103, Est GFR (MDRD) Non-Af 86, BUN/Creatinine Ratio 34.4 H, Glucose 104, Calcium 8.4 L Micro: Microbiology 02/20/22 21:15 Sputum, Expectorated/Coughed Gram Stain - Final 02/20/22 21:15 Sputum, Expectorated/Coughed Respiratory Culture - Final 02/19/22 18:55 Blood Culture (Wb) - Anticubital Right Blood Culture - Final Granulicatella adiacens 02/19/22 18:06 Blood Culture (Wb) - Anticubital Right Blood Culture - Preliminary No growth in 48 hours. Rhythm Strip Rhythm Strip: Sinus Rhythm Rate: 89 Ectopy: PVC(s) Radiology Impression Echocardiogram 02/22/22 08:25 Interpretation Summary The study was technically difficult. Mild segmental systolic dysfunction (see wall motion). The estimated ejection fraction is 50 %. The left atrium is mildly enlarged. Mild diffuse mitral valve thickening. The mitral valve chordae are thickened and/or calcified. Trivial mitral valve insufficiency. Trivial tricuspid valve insufficiency. Mild focal aortic valve calcification. Borderline enlarged aortic root. Right ventricular systolic pressure estimated to be 25 mmHg. Stage 2 diastolic dysfunction. Ordering Physician: Madelaine Liriano Referring Physician: Enrike Dobbins Chi Performed By: Nae Guillen, ZEHRA, RVT
--- NOTE | 2022-02-22 15:21 | PN.HOSP_ITS ---
Subjective Subjective Feeling very well and anxious to go home. Has no concerns or complaints at this time. Objective Data Objective Data Vital Signs: Vital Signs Temp Pulse Resp BP Pulse Ox O2 Del Method 97.9 F 58 L 18 160/74 H 100 Room Air 02/22/22 14:26 02/22/22 14:26 02/22/22 14:26 02/22/22 14:26 02/22/22 14:26 02/22/22 14:26 Oxygen Delivery Method Room Air Weight: 57.4 kg Body Mass Index (BMI) 22.8 Intake & Output: Intake and Output for Last 24 Hours 02/20/22 02/21/22 02/22/22 23:59 23:59 23:59 Intake Total 805 / 805 324.77 / 324.77 569 / 569 Balance 805 / 805 324.77 / 324.77 569 / 569 Medical Nutrition Assessment Dietitian: Malnutrition Criteria Met Start: 02/20/22 11:29 Freq: Status: Active Protocol: Document 02/20/22 11:29 VIRAJ (Rec: 02/20/22 11:29 [id number]) Nutrition Malnutrition Evidence of Malnutrition Exists Yes Malnutrition (severe): Acute Illness/Injury Evidenced By Suboptimal Energy Intake ( Severe),Weight Loss (Severe) Clinical Problem Acute Disease or Injury Related Malnutrition Etiology related to decreased po intake since R CEA (02/10) Signs/Symptoms as evidenced by 2.5% wt loss and <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 Active Problem Recommendation Dietitian Recommendations/Changes Will liberalize diet to Regular w/ fortified foods as able d/t signs and symptoms of malnutrition Will continue ensure plus high protein 3x/day w/ medpass Lab / Micro Data Result Diagrams: 02/22/22 04:51 02/22/22 04:51 Labs: Laboratory Results - last 24 hr 02/22/22 04:51: WBC 12.9 H, RBC 4.45, Hgb 11.7 L, Hct 35.8 L, MCV 80.4 L, MCH 26.3 L, MCHC 32.7, RDW Std Deviation 43.9, RDW Coeff of Hood 15.0 H, Plt Count 450, MPV 9.5, Immature Gran % (Auto) 0.800, Neut % (Auto) 86.9 H, Lymph % (Auto) 7.7 L, [place] % (Auto) 4.5, Eos % (Auto) 0.0, Baso % (Auto) 0.1, Absolute Neuts (auto) 11.2 H, Absolute Lymphs (auto) 1.00, Nucleated RBC % 0 02/22/22 04:51: Sodium 134 L, Potassium 4.4, Chloride 104, Carbon Dioxide 25.0, Anion Gap 5, BUN 24 H, Creatinine 0.70, Estim Creat Clear Calc 31.15, Est GFR (MDRD) Af Amer 103, Est GFR (MDRD) Non-Af 86, BUN/Creatinine Ratio 34.4 H, Glucose 104, Calcium 8.4 L Micro: Microbiology 02/20/22 21:15 Sputum, Expectorated/Coughed Gram Stain - Final 02/20/22 21:15 Sputum, Expectorated/Coughed Respiratory Culture - Final 02/19/22 18:55 Blood Culture (Wb) - Anticubital Right Blood Culture - Final Granulicatella adiacens 02/19/22 18:06 Blood Culture (Wb) - Anticubital Right Blood Culture - Preliminary No growth in 48 hours. 02/19/22 23:40 Mucosa - Nasopharyngeal Respiratory Panel (PCR) - Final 02/19/22 17:45 Urine Catheter - Catheter Legionella Antigen - Final 02/19/22 17:45 Urine Catheter - Catheter Streptococcus pneumoniae Antigen (M - Final 02/19/22 16:47 Nasal Secretion SARS-CoV-2 & FLU Antigen (Rapid) - Final Radiography Diagnostic Testing: Radiology Impression Echocardiogram 02/22/22 08:25 Interpretation Summary The study was technically difficult. Mild segmental systolic dysfunction (see wall motion). The estimated ejection fraction is 50 %. The left atrium is mildly enlarged. Mild diffuse mitral valve thickening. The mitral valve chordae are thickened and/or calcified. Trivial mitral valve insufficiency. Trivial tricuspid valve insufficiency. Mild focal aortic valve calcification. Borderline enlarged aortic root. Right ventricular systolic pressure estimated to be 25 mmHg. Stage 2 diastolic dysfunction. Ordering Physician: Madelaine Liriano Referring Physician: Enrike Dobbins Chi Performed By: Nae Guillen, ZEHRA, RVT Rhythm Strip Rhythm Strip: Sinus Rhythm Rate: 89 Ectopy: PVC(s) Physical Exam Const alert, oriented x3, no apparent distress, average body habitus and well nourished Constitutional Narrative: Very pleasant elderly white female sitting up in in bed, watching television, nontoxic, appears well HEENT head/scalp atraumatic and moist oral mucous membranes Neck Neck Narrative: postoperative right CEA incision that appears to be healing well without any signs of infection or drainage on the right neck Resp normal respiratory effort, no retractions, no use of accessory muscles and clear to auscultation bilaterally Auscultation: Negative for crackles, rhonchi or wheezes Cardio regular rate, regular rhythm, S1 normal heart sound, S2 normal heart sound, no murmurs, no rub, no gallops and no clicks GI normal to inspection, nondistended, normoactive bowel sounds, soft to palpation and non-tender Extremity no clubbing, cyanosis or edema Extremity Narrative: 2+ pedal pulses Neuro oriented x3, moves all extremities and no focal motor deficits Neuro Narrative: Mild generalized weakness-proximal greater than distal Speech: speech normal Psych affect normal Psych Narrative: Very pleasant and appropriately interactive Assessment & Plan Assessment/Plan (1) Leukocytosis: (2) Weakness: PLAN: Plan Generalized weakness/myalgia/leukocytosis/lymphopenia -Secondary to bacteremia -Clinically much improved -Ceftriaxone to continue -Strep pneumo and Legionella antigens are negative -Respiratory viral panel is negative -Repeat chest x-ray unremarkable and patient remains on room air -Overall clinically much improved -White count is trending down Granulicatella Bacteremia -Ceftriaxone started yesterday morning -Continue IV antibiotics -Echocardiogram did not show any signs of vegetation -Patient clinically improving and white count is normalizing -ID is consulted and recommends continuing ceftriaxone at this time -Patient will likely be able to do discharged home on oral antibiotics tomorrow Acute on chronic left shoulder pain -Acute pain remains resolved -Imaging negative for -Continue as needed oral medication Hyperglycemia -Suspect reactive -Hemoglobin A1c was obtained and found to be 5.4 Carotid artery stenosis -CEA on 02/08/[address] Khan -Surgical area looks good overall -No signs of infection -Outpatient follow-up is already scheduled PAF -Continue home metoprolol/amiodarone -Not anticoagulated secondary to history of GI bleed CAD/ischemic cardiomyopathy -Previous PCI and follows with Dr. Sanchez -Status post AICD -Most recent echo from 2018 shows EF of 35% with moderate segmental dysfunction and trivial mitral valve insufficiency with a right ventricular systolic pressure of 25 mmHg -Continue home medications History of TIA -Continue aspirin -Continue statin -Therapy as ordered Hypertension -Continue home clonidine/metoprolol/lisinopril/HCTZ/isosorbide -As needed IV hydralazine Hyperlipidemia -Continue home statin History of chronic hyponatremia -Sodium is stable -Patient is on HCTZ at baseline and if her sodium becomes problematic would recommend discontinuation of this Chronic polycythemia -Follows with oncology -No current treatment -Recommend continued outpatient follow-up -To be related to baseline tobacco abuse History of tobacco abuse -Recommend continue sensation -Patient recently quit DVT prophylaxis -SCDs -Subcu Lovenox CODE STATUS -Full code Charges/Coding Visit Charges Inpatient E&M: 70273 Subs Hosp L2
--- NOTE | 2022-02-22 15:53 | CASEMGMT ---
[facility]BO CM Readmission Note Previous Admission:? 02/08/22-02/10/22?? Diagnosis: R carotid endartarectomy? DC Disposition: Home Current Admission? Current Diagnosis: FTT Adult, viral syndrome Pt with recent R carotid entarterectomy, presented 02/19 with 2-3 days of weakness, fatigue, aches/cramping in legs, dry cough.? Was unable to get out of bed for 2-3 days.? No fever or chills, no issues with surgical site, no dysuria, no sputum, no change in taste or smell.?Had worsened wbc and 1 of 2 bcx (+), so started on ceftriaxone 02/21.? Single bcx with granulicatella, paired bcx remains neg.? Wbc improved this.? Symptoms resolved.? Echo showed no veg.? No fever.?Paired blood culture pending. Patient denies needing any homegoing services. 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 Plan: DC home tomorrow
[2022-02-22] MEDS: Metoprolol(XL)Succ 50 MG Tablet PO (20:28)
[2022-02-22] MEDS: Aspirin E.C. 81 MG Tablet PO (20:29)
[2022-02-22] MEDS: ALPRAZolam 0.25 MG Tablet PO (22:21)
[2022-02-23] VITALS (8 sets, daily range): BP systolic 165–191; BP diastolic 74–77; PULSE 56–63; RESP 15–18; TEMP 36.3–36.6; O2SAT 97–99
[2022-02-23 06:11] LABS: Absolute Lymphocyte Count 1.38 X10^3/uL (0.83-4.51); Absolute Neutrophil Count 9.5 X10^3/uL (2.0-7.7); Basophil# 0.02 X10^3/uL; Basophil% 0.2 % (0-1); Eosinophil# 0.02 X10^3/uL; Eosinophils% 0.2 % (0-5); Hematocrit 38.4 % (37-47); Hemoglobin 12.9 g/dL (12.0-15.0); Lymphocyte # 1.38 X10^3/ul (0.83-4.51); Lymphocyte % 11.7 % (19-41); Mean Corp Hgb Conc 33.6 g/dL (32-36); Mean Corpuscular Hgb 26.8 pg (27.0-32.0); Mean Corpuscular Volume 79.8 fL (81-99); Monocyte# 0.67 X10^3/uL; Monocyte% 5.7 % (0-10); NRBC Flagged by Analyzer 0 % (0-5); Neutrophil % 80.7 % (47-70); Platelet Count 525 K/mm3 (150-450); RBC Distribution Width CV 15.1 % (11.6-14.6); RBC Distribution Width SD 43.8 fl (35.1-43.9); Red Blood Count 4.81 M/mm3 (4.2-5.4); White Blood Count 11.8 K/mm3 (4.4-11.0)
[2022-02-23] MEDS: Arthritis Pain Compound 60 CLICK TUBE TOPICAL ×2 (06:19→14:02)
[2022-02-23 06:33] LABS: Anion Gap 3 (5-15); BUN 21 mg/dL (7-18); BUN/Creat Ratio 33.2 RATIO (10-20); Calcium,Total 8.4 mg/dL (8.5-10.1); Chloride 105 mmol/L (98-107); Creatinine, Serum 0.63 mg/dL (0.55-1.02); EST Glomerular Filtration Rate 96 mL/min (>60); Est Glom Filt Rate - Afr Amer 116 mL/min (>60); Estimated Creatinine Clearance 31.15 ml/min; Glucose 94 mg/dL (74-106); Potassium 4.7 mmol/L (3.5-5.1); Sodium Level 134 mmol/L (136-145)
[2022-02-23] MEDS: Isosorbide Mononitrate 60 MG Tablet PO (09:06)
[2022-02-23] MEDS: Lisinopril 20 MG Tablet PO (09:06)
[2022-02-23] MEDS: Metoprolol(XL)Succ 50 MG Tablet PO (09:06)
[2022-02-23] MEDS: hydroCHLOROthiazide 25 MG Tablet PO (09:07)
[2022-02-23] MEDS: Enoxaparin 40 MG/0.4 ML Syringe SC (09:07)
[2022-02-23] MEDS: Amiodarone 200 MG Tablet 100 MG PO (09:07)
[2022-02-23] MEDS: Potassium Chloride Oral Tablet 20 MEQ PO (09:09)
--- NOTE | 2022-02-23 11:56 | DS.PCM_ITS ---
Providers Date of Admission: 02/21/22 Date of Discharge: 02/23/22 Primary Care Physician: Dr. Enrike Dobbins MD Consultations 02/22/22 08:25 Consult: Infectious Disease Routine Consulting Provider: Gm Peck Reason for Consult: bactermia EMERGENT Consult: No MD Notified: Yes Date Notified: 02/22/22 Time Notified: 08:28 Method of Notification: Verbal Reason For Visit: FTT ADULT, VIRAL SYNDROME Diagnosis Discharge Diagnosis (1) Leukocytosis: Status: Acute Code(s): D72.829 - Elevated white blood cell count, unspecified (2) Weakness: Status: Acute Code(s): R53.1 - Weakness Medications at Discharge Home Medications alprazolam 0.25 mg tablet 0.25 tab PO QHS jaw pain 05/24/16 aspirin 81 mg tablet,delayed release 81 mg PO QHS heart health 05/24/16 Lipitor 40 mg tablet (atorvastatin) 40 mg PO QDAY cholesterol #90 tabs 09/13/21 isosorbide mononitrate 30 mg tablet,extended release 24 hr 60 mg PO DAILY heart 10/05/21 amiodarone 200 mg tablet 100 mg PO DAILY heart 01/26/22 hydrochlorothiazide 25 mg tablet 25 mg PO DAILY bp 01/26/22 metoprolol succinate 50 mg tablet,extended release 24 hr 50 mg PO BID bp 01/26/22 potassium chloride 20 mEq oral packet 20 meq PO BID supplement 01/26/22 nitroglycerin 0.4 mg sublingual tablet 0.4 mg sublingual UD PRN Cardiac/Chest Pain #90 tabs 02/03/22 lisinopril 20 mg tablet 20 mg PO BID 02/19/22 cefdinir 300 mg capsule 300 mg PO Q12H #22 caps 02/23/22 Hospital Course Procedures 2-D Echocardiogram and - (Chest x-ray x2, shoulder x-ray) Summary of Care Provided Minutes Spent on Discharge: 38 Hospital Course: Mrs. Hernandez is an 81-year-old white female who presented to the emergency department was coming hospital on 02/19/2022 with cough, myalgia, and shoulder pain. Patient had a recent admission for carotid endarterectomy from 02/08/2022 through 02/10/2022. She had been doing well after this but after returning home she developed some fatigue, myalgias, nonproductive cough and some left shoulder pain that was worse than her baseline. She had no falls at home. She noted she had difficulty sleeping or even functioning in her own home. She denied any fever or chills, urinary symptoms, nausea vomiting or diarrhea and had no ill contacts. Work-up in the ED included T 98, HR 100, BP 144/101, RR 20, 98% on RA, CBC w/ WBC 19.5, Hgb 15.2, Plts 367 with L shift and lymphopenia, CMP with Na 132, K 3.3, Chl 96, glucose 160, T bili 1.20, hepatic profile otherwise unremarkable, UA unremarkable for UTI, CXR with no acute cardiopulmonary findings, plain film of the L shoulder with progression of glenohumeral degenerative changes, stable degenerative changes acromioclavicular joint with no acute findings, Bld Cx x 2 pending per ED, rapid SARS COVID and influenza negative. In the ED patient administered NS 1L bolus, intraarticular injection performed with lidocaine and triamcinolone per ED physician. She was admitted the medical floor and there was concern that this was viral etiology in nature. She was given a liter of IV fluids. Strep pneumo and Legionella antigens were negative. Her urine culture was unremarkable. Her respiratory viral panel was normal. 1 of 2 blood cultures Granulicatella adiacens and she was started on ceftriaxone. She did have a white count that initially trended down but on her second day of hospitalization went back up to 19,000 with a left shift so I suspect this blood culture is real. An echocardiogram was performed as this organism is known to cause infective endocarditis. Her echocardiogram showed no vegetations, EF of 50% with mild left atrial enlargement and a borderline enlarged aortic root with stage II diastolic dysfunction. She clinically was much improved within 24 hours of her hospital stay however with the positive blood cultures we need to keep her longer to assure treatment was appropriate. She was seen by physical and Occupational Therapy and they recommended home health care however the patient deferred at discharge. She was maintained on ceftriaxone throughout her hospital course. She was discharged on cefdinir 300 mg p.o. twice daily and is to continue this for the next 11 days and then discontinue. I suspect this is an oral source of bacteremia as she does have poor dentition and has been having ongoing dental care. No other medications were were changed at the time of discharge. She was discharged home in stable condition on 02/23/2022. Discharge diagnoses: Granulicatella Bacteremia Generalized weakness-resolved Myalgias-resolved Leukocytosis-improving Acute shoulder pain-resolved Chronic left shoulder pain Carotid artery stenosis status post CEA PAF CAD Ischemic cardiomyopathy History of TIA Hypertension Hyperlipidemia History of chronic hyponatremia Chronic polycythemia History of tobacco abuse Physical Exam Narrative Const alert, oriented x3, no apparent distress, average body habitus and well violet shed Constitutional Narrative: Very pleasant elderly white female sitting up in in bed, watching television, nontoxic, appears well General Appearance: cooperative, comfortable, well kempt and well developed Orientation / Consciousness: awake, oriented to person, oriented to place and oriented to time Exam Limitations: no limitations HEENT normocephalic, head/scalp atraumatic and moist oral mucous membranes HEENT Narrative: Moderate hearing loss, dentition is poor, Mallampati 2 Eyes PERRL, EOMs intact bilaterally and conjunctivae normal Eyes Narrative: No scleral icterus Neck no lymphadenopathy and supple Neck Narrative: postoperative right CEA incision that appears to be healing well without any signs of infection or drainage on the right neck, trachea midline, no thyroid enlargement Resp normal respiratory effort, no retractions, no use of accessory muscles and clear to auscultation bilaterally Auscultation: Negative for crackles, rhonchi or wheezes Cardio regular rate, regular rhythm, S1 normal heart sound, S2 normal heart sound, no murmurs, no rub, no gallops and no clicks GI normal to inspection, nondistended, normoactive bowel sounds, soft to palpation and non-tender Extremity no clubbing, cyanosis or edema Extremity Narrative: 2+ pedal pulses Skin no rashes or lesions noted, no wounds, skin turgor normal and no jaundice Neuro oriented x3, CN's II-XII intact bilaterally, moves all extremities and no focal motor deficits Neuro Narrative: Mild generalized weakness-proximal greater than distal Sensorium / Orientation: awake, alert, oriented to person, oriented to place and oriented to time Speech: speech normal Psych affect normal Psych Narrative: Very pleasant and appropriately interactive Medical Records Data Medical Nutrition Assessment Dietitian: Malnutrition Criteria Met Start: 02/20/22 11:29 Freq: Status: Active Protocol: Document 02/20/22 11:29 VIRAJ (Rec: 02/20/22 11:29 SLA [id number]) Nutrition Malnutrition Evidence of Malnutrition Exists Yes Malnutrition (severe): Acute Illness/Injury Evidenced By Suboptimal Energy Intake ( Severe),Weight Loss (Severe) Clinical Problem Acute Disease or Injury Related Malnutrition Etiology related to decreased po intake since R CEA (02/10) Signs/Symptoms as evidenced by 2.5% wt loss and <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 Problem Recommendation Dietitian Recommendations/Changes Will liberalize diet to Regular w/ fortified foods as able d/t signs and symptoms of malnutrition Will continue ensure plus high protein 3x/day w/ medpass Weight / BMI Weight Weight: 56.2 kg Body Mass Index (BMI) 22.8 ABG / Lab / Microbiology Data Result Diagrams: 02/23/22 05:44 02/23/22 05:44 Laboratory: Laboratory Results - last 24 hr 02/23/22 05:44: WBC 11.8 H, RBC 4.81, Hgb 12.9, Hct 38.4, MCV 79.8 L, MCH 26.8 L , MCHC 33.6, RDW Std Deviation 43.8, RDW Coeff of [place] 15.1 H, Plt Count 525 H, MPV 9.0, Immature Gran % (Auto) 1.500 H, Neut % (Auto) 80.7 H, Lymph % (Auto) 11.7 L, [place] % (Auto) 5.7, Eos % (Auto) 0.2, Baso % (Auto) 0.2, Absolute Neuts (auto) 9.5 H, Absolute Lymphs (auto) 1.38, Nucleated RBC % 0 02/23/22 05:44: Sodium 134 L, Potassium 4.7, Chloride 105, Carbon Dioxide 26.0, Anion Gap 3 L, BUN 21 H, Creatinine 0.63, Estim Creat Clear Calc 31.15, Est GFR (MDRD) Af Amer 116, Est GFR (MDRD) Non-Af 96, BUN/Creatinine Ratio 33.2 H, Glucose 94, Calcium 8.4 L Microbiology: Microbiology 02/20/22 21:15 Sputum, Expectorated/Coughed Gram Stain - Final 02/20/22 21:15 Sputum, Expectorated/Coughed Respiratory Culture - Final 02/19/22 18:55 Blood Culture (Wb) - Anticubital Right Blood Culture - Final Granulicatella adiacens 02/19/22 18:06 Blood Culture (Wb) - Anticubital Right Blood Culture - Preliminary No growth in 48 hours. 02/19/22 23:40 Mucosa - Nasopharyngeal Respiratory Panel (PCR) - Final 02/19/22 17:45 Urine Catheter - Catheter Legionella Antigen - Final 02/19/22 17:45 Urine Catheter - Catheter Streptococcus pneumoniae Antigen (M - Final 02/19/22 16:47 Nasal Secretion SARS-CoV-2 & FLU Antigen (Rapid) - Final Radiography Diagnostic Testing: Radiology Impression Echocardiogram 02/22/22 08:25 Interpretation Summary The study was technically difficult. Mild segmental systolic dysfunction (see wall motion). The estimated ejection fraction is 50 %. The left atrium is mildly enlarged. Mild diffuse mitral valve thickening. The mitral valve chordae are thickened and/or calcified. Trivial mitral valve insufficiency. Trivial tricuspid valve insufficiency. Mild focal aortic valve calcification. Borderline enlarged aortic root. Right ventricular systolic pressure estimated to be 25 mmHg. Stage 2 diastolic dysfunction. Ordering Physician: Madelaine Liriano Referring Physician: Enrike Dobbins Chi Performed By: Nae Guillen RDCS, RVT D/C Instructions Discharge Diet: Low fat / Low cholesterol Discharge Activity: Return to Normal Activity Meaningful Use Info Meaningful Use Diagnoses (Choose all that apply): None applicable Discharge Plan Admission Admit Date/Time: 02/21/22 16:08 Primary Reason for Your Visit: Myalgias Attending Provider: Madelaine Liriano Primary Care Provider: Enrike Dobbins Chi Consulting Providers: Marielos Azul ; Gm Peck Discharge Orders/Prescriptions Prescriptions: New cefdinir 300 mg capsule 300 mg PO Q12H Qty: 22 0RF Continued isosorbide mononitrate 30 mg tablet extended release 24 hr 60 mg PO DAILY Rx Instructions: Must be white pill not red pill nitroglycerin 0.4 mg tablet, sublingual 0.4 mg SUBLINGUAL UD MDD Q5min prn PRN (Reason: Cardiac/Chest Pain) Qty: 90 6RF aspirin 81 MG tablet,delayed release (DR/EC) 81 mg PO QHS alprazolam 0.25 MG tablet 0.25 tab PO QHS Label Comments: for jaw, takes in the late evening amiodarone 200 mg tablet 100 mg PO DAILY metoprolol succinate 50 mg tablet extended release 24 hr 50 mg PO BID Rx Instructions: MUST BE BRAND NAME MEDICATION hydrochlorothiazide 25 mg tablet 25 mg PO DAILY potassium chloride 20 mEq Packet 20 meq PO BID lisinopril 20 mg tablet 20 mg PO BID Label Comments: TAKE 1 TABLET BY MOUTH TWICE A DAY atorvastatin [Lipitor] 40 mg tablet 40 mg PO QDAY Qty: 90 4RF Rx Instructions: Must be Brand Name, no generic. Referrals / Follow Up: Mitchel Khan MD [Med Staff - Active Staff] - See Referral Note (As scheduled) Enrike Dobbins Chi, MD [Primary Care Provider] - Within 2 Weeks Disposition Disposition (needs filled in before D/C Order can be placed): Home, Self Care Charges/Coding Visit Charges Inpatient E&M: 28542 Disch Hosp
--- NOTE | 2022-02-23 13:21 | CASEMGMT ---
BEBO CM into pt room, pt sitting in chair. Pt denies any homegoing needs at this time. Pt then up indep in the room, appears steady on her feet. Pt questioned where her rx was called to. She is aware that it is [facility]. Pt denies further needs.
== END 2022-02-23 14:59 | disposition home or self-care (01) | DRG 872 ==
LOC: ED 18:58 → MS3 20:38
PROVIDERS: Admitting Provider Family Medicine; Emergency Provider Emergency Medicine; PCP Family Medicine Geriatric Medicine; Visit Provider Internal Medicine
DX: R78.81 Bacteremia (principal); R62.7 Adult failure to thrive; I48.0 Paroxysmal atrial fibrillation; D45 Polycythemia vera; D72.810 Lymphocytopenia; I25.5 Ischemic cardiomyopathy; E78.5 Hyperlipidemia, unspecified; I10 Essential (primary) hypertension; D72.829 Elevated white blood cell count, unspecified; E87.6 Hypokalemia; M79.10 Myalgia, unspecified site; I25.10 Atherosclerotic heart disease of native coronary artery without angina pectoris; E78.00 Pure hypercholesterolemia, unspecified; M25.512 Pain in left shoulder; I25.2 Old myocardial infarction; B95.4 Other streptococcus as the cause of diseases classified elsewhere; G89.29 Other chronic pain; Z20.822 Contact with and (suspected) exposure to COVID-19; R73.9 Hyperglycemia, unspecified; R53.1 Weakness; Z68.22 Body mass index [BMI] 22.0-22.9, adult; Z79.82 Long term (current) use of aspirin; Z79.899 Other long term (current) drug therapy; Z87.891 Personal history of nicotine dependence; Z86.73 Personal history of transient ischemic attack (TIA), and cerebral infarction without residual deficits; Z95.5 Presence of coronary angioplasty implant and graft; Z95.810 Presence of automatic (implantable) cardiac defibrillator
CPT/HCPCS: 36415; 71045; 73030; 80048; 80053; 81001; 83036; 83735; 84100; 84145; 85025; 87040; 87070; 87077; 87205; 87428; 87449; 87633; 93005; 93306; 97110; 97162; 97165; 97530; 97535; 97802; 99251; 99285; J7030; J7050; A4216; G0463; J0696

== ENCOUNTER → 2022-07-12 | Outpatient (CLI) | payer MEDICARE, BC, SELFPAY ==
[2022-07-12 16:38] LABS: Absolute Lymphocyte Count 1.53 X10^3/uL (0.83-4.51); Absolute Neutrophil Count 5.6 X10^3/uL (2.0-7.7); Basophil# 0.11 X10^3/uL; Basophil% 1.3 % (0-1); Eosinophil# 0.38 X10^3/uL; Eosinophils% 4.5 % (0-5); Hematocrit 47.5 % (37-47); Hemoglobin 15.2 g/dL (12.0-15.0); Lymphocyte # 1.53 X10^3/ul (0.83-4.51); Lymphocyte % 18.2 % (19-41); Mean Corpuscular Volume 78.1 fL (81-99); Mean Platelet Vol. 9.6 fl (6.2-12.0); Monocyte# 0.76 X10^3/uL; NRBC Flagged by Analyzer 0 % (0-5); Neutrophil # 5.59 X10^3/uL (2.7-7.7); Neutrophil % 66.6 % (47-70); Platelet Count 332 K/mm3 (150-450); RBC Distribution Width CV 17.1 % (11.6-14.6); RBC Distribution Width SD 45.1 fl (35.1-43.9); Red Blood Count 6.08 M/mm3 (4.2-5.4); White Blood Count 8.4 K/mm3 (4.4-11.0)
[2022-07-12 16:59] LABS: Vitamin D,25 Hydroxy 27.6 ng/mL
[2022-07-12 17:13] LABS: AST(SGOT) 25 U/L (15-37); Alanine Aminotransfer ALT/SGPT 17 U/L (13-56); Albumin, Serum 3.6 g/dL (3.2-5.0); Alkaline Phosphatase 130 U/L (45-117); Anion Gap 8 (5-15); BUN 18 mg/dL (7-18); BUN/Creat Ratio 17.3 RATIO (10-20); Calcium,Total 9.3 mg/dL (8.5-10.1); Chloride 100 mmol/L (98-107); Creatinine, Serum 1.04 mg/dL (0.55-1.02); EST Glomerular Filtration Rate 54 mL/min (>60); Est Glom Filt Rate - Afr Amer 65 mL/min (>60); Globulin 3.5 g/dL (2.2-4.2); Glucose 109 mg/dL (74-106); Potassium 3.9 mmol/L (3.5-5.1); Protein, Total 7.1 g/dL (6.4-8.2); Sodium Level 133 mmol/L (136-145); Thyroid Stim Hormone (TSH) 7.68 uIU/mL (0.358-3.74); Uric Acid 3.9 mg/dL (2.6-6.0)
== END | disposition home or self-care (01) ==
LOC: POLAB3 13:18
PROVIDERS: PCP Family Medicine Geriatric Medicine; Visit Provider Family Medicine Geriatric Medicine
DX: I10 Essential (primary) hypertension (principal); M10.9 Gout, unspecified; E55.9 Vitamin D deficiency, unspecified
CPT/HCPCS: 36415; 80053; 82306; 84443; 84550; 85025

== ENCOUNTER → 2022-09-07 | Outpatient (CLI) | payer MEDICARE, BC, SELFPAY ==
[2022-09-07 17:52] LABS: Absolute Lymphocyte Count 1.63 X10^3/uL (0.83-4.51); Absolute Neutrophil Count 5.7 X10^3/uL (2.0-7.7); Basophil# 0.12 X10^3/uL; Basophil% 1.4 % (0-1); Eosinophils% 4.7 % (0-5); Hematocrit 45.1 % (37-47); Hemoglobin 14.1 g/dL (12.0-15.0); Lymphocyte # 1.63 X10^3/ul (0.83-4.51); Mean Corp Hgb Conc 31.3 g/dL (32-36); Mean Corpuscular Hgb 25.2 pg (27.0-32.0); Mean Corpuscular Volume 80.5 fL (81-99); Mean Platelet Vol. 9.9 fl (6.2-12.0); Monocyte# 0.72 X10^3/uL; Monocyte% 8.4 % (0-10); NRBC Flagged by Analyzer 0 % (0-5); Neutrophil # 5.67 X10^3/uL (2.7-7.7); Neutrophil % 66.1 % (47-70); Platelet Count 322 K/mm3 (150-450); RBC Distribution Width CV 17.6 % (11.6-14.6); RBC Distribution Width SD 49.3 fl (35.1-43.9); White Blood Count 8.6 K/mm3 (4.4-11.0)
[2022-09-07 18:41] LABS: ALB/GLOB Ratio 0.9 RATIO (0.9-2.4); AST(SGOT) 19 U/L (15-37); Alanine Aminotransfer ALT/SGPT 17 U/L (13-56); Albumin, Serum 3.3 g/dL (3.2-5.0); Alkaline Phosphatase 119 U/L (45-117); Anion Gap 8 (5-15); BUN 14 mg/dL (7-18); BUN/Creat Ratio 16.4 RATIO (10-20); Calcium,Total 8.9 mg/dL (8.5-10.1); Chloride 100 mmol/L (98-107); Creatinine, Serum 0.85 mg/dL (0.55-1.02); EST Glomerular Filtration Rate 68 mL/min (>60); Est Glom Filt Rate - Afr Amer 82 mL/min (>60); Globulin 3.6 g/dL (2.2-4.2); Glucose 103 mg/dL (74-106); Potassium 4.2 mmol/L (3.5-5.1); Protein, Total 6.9 g/dL (6.4-8.2); Sodium Level 133 mmol/L (136-145); Thyroid Stim Hormone (TSH) 2.83 uIU/mL (0.358-3.74)
== END | disposition home or self-care (01) ==
LOC: POLAB3 14:33
PROVIDERS: PCP Family Medicine Geriatric Medicine; Visit Provider Family Medicine Geriatric Medicine
DX: I10 Essential (primary) hypertension (principal)
CPT/HCPCS: 36415; 80053; 84443; 85025

== ENCOUNTER → 2022-11-02 | Outpatient (CLI) | payer MEDICARE, BC, SELFPAY ==
--- NOTE | 2022-11-03 08:31 | PFT ---
INTRODUCTION: The patient is an 82-year-old female that presents for pulmonary function studies secondary to a diagnosis of cardiomyopathy. Respiratory therapy reported good patient effort, but had difficulty performing DLCO. Bronchodilators were used during testing. INTERPRETATION: Forced expiration spirometry demonstrates no evidence of a large airways obstructive ventilatory defect. There was no significant response to aerosolized bronchodilators. Spirograms are of good quality and plateau normally. Body plethysmography was performed and revealed lung volumes to be within normal limits. Diffusing capacity by single breath CO was within normal limits. IMPRESSION: Grossly normal pulmonary function studies.
== END | disposition home or self-care (01) ==
LOC: PSN 12:08
PROVIDERS: PCP Family Medicine Geriatric Medicine; Referring Provider Internal Medicine Cardiovascular Disease; Visit Provider Internal Medicine Cardiovascular Disease
DX: I42.9 Cardiomyopathy, unspecified (principal); Z79.899 Other long term (current) drug therapy; Z95.810 Presence of automatic (implantable) cardiac defibrillator
CPT/HCPCS: 94060; 94726; 94729

== ENCOUNTER → 2023-01-15 | Outpatient (CLI) | payer MEDICARE, BC, SELFPAY ==
[2023-01-15 16:33] LABS: Absolute Lymphocyte Count 1.96 X10^3/uL (0.83-4.51); Absolute Neutrophil Count 7.3 X10^3/uL (2.0-7.7); Basophil# 0.14 X10^3/uL; Basophil% 1.4 % (0-1); Eosinophil# 0.14 X10^3/uL; Eosinophils% 1.4 % (0-5); Hematocrit 50.1 % (37-47); Hemoglobin 15.8 g/dL (12.0-15.0); Lymphocyte # 1.96 X10^3/ul (0.83-4.51); Lymphocyte % 19.3 % (19-41); Mean Corp Hgb Conc 31.5 g/dL (32-36); Mean Corpuscular Hgb 25.4 pg (27.0-32.0); Mean Corpuscular Volume 80.7 fL (81-99); Monocyte% 5.9 % (0-10); NRBC Flagged by Analyzer 0 % (0-5); Neutrophil # 7.28 X10^3/uL (2.7-7.7); Neutrophil % 71.7 % (47-70); Platelet Count 340 K/mm3 (150-450); RBC Distribution Width CV 17.8 % (11.6-14.6); RBC Distribution Width SD 49.1 fl (35.1-43.9); Red Blood Count 6.21 M/mm3 (4.2-5.4); White Blood Count 10.2 K/mm3 (4.4-11.0)
[2023-01-15 17:19] LABS: Vitamin D,25 Hydroxy 41.6 ng/mL
[2023-01-15 17:26] LABS: ALB/GLOB Ratio 1.1 RATIO (0.9-2.4); AST(SGOT) 17 U/L (15-37); Alanine Aminotransfer ALT/SGPT 14 U/L (13-56); Alkaline Phosphatase 114 U/L (45-117); Anion Gap 11 (5-15); BUN 16 mg/dL (7-18); BUN/Creat Ratio 16.9 RATIO (10-20); Calcium,Total 9.2 mg/dL (8.5-10.1); Chloride 100 mmol/L (98-107); Creatinine, Serum 0.95 mg/dL (0.55-1.02); EST Glomerular Filtration Rate 60 mL/min (>60); Est Glom Filt Rate - Afr Amer 73 mL/min (>60); Globulin 3.6 g/dL (2.2-4.2); Glucose 106 mg/dL (74-106); Potassium 3.9 mmol/L (3.5-5.1); Protein, Total 7.6 g/dL (6.4-8.2); Sodium Level 137 mmol/L (136-145); Thyroid Stim Hormone (TSH) 2.52 uIU/mL (0.358-3.74); Uric Acid 3.5 mg/dL (2.6-6.0)
== END | disposition home or self-care (01) ==
LOC: POLAB3 15:26
PROVIDERS: PCP Family Medicine Geriatric Medicine; Visit Provider Family Medicine Geriatric Medicine
DX: I10 Essential (primary) hypertension (principal); M10.9 Gout, unspecified; E55.9 Vitamin D deficiency, unspecified
CPT/HCPCS: 36415; 80053; 82306; 84443; 84550; 85025

== ENCOUNTER → 2023-03-26 | Outpatient (CLI) | payer MEDICARE, BC, SELFPAY ==
--- NOTE | 2023-03-26 12:43 | CDU_ITS ---
Reason For Study: S/P Right CEA Rt. Velocities/BP Lt. Velocities/BP Prox CCA 21.8/6.7 cm/sec. Prox CCA 57/15.4 cm/sec. Mid CCA 31.9/8.7 cm/sec. Mid CCA 62.6/18.2 cm/sec. Dist CCA 28.9/9.2 cm/sec. Dist CCA 77.8/19.2 cm/sec. Prox ICA 17/4.4 cm/sec. Prox ICA 40.9/10.2 cm/sec. Mid ICA 57.8/19.5 cm/sec. Mid ICA 52.2/16.3 cm/sec. Dist ICA 44.9/13.9 cm/sec. Dist ICA 74.9/20.1 cm/sec. Rt. ICA/CCA = 2.00. Lt. ICA/CCA = 1.20. Rt. Vert. 49.4/14.5 cm/sec. Prox ECA 74/13.5 cm/sec. Lt. Vert. 34.3/8.8 cm/sec. Right Extracranial There is homogeneous, smooth atherosclerotic plaque noted in the right common carotid artery. CCA distal measures 1.70 x 1.77 x 2.00 cm. There is homogeneous, smooth atherosclerotic plaque noted in the right internal carotid artery. No flow visualized in the right ECA. Antegrade flow is noted in the right vertebral artery. Left Extracranial There is heterogeneous, smooth atherosclerotic plaque noted in the left common carotid artery. There is heterogeneous, irregular atherosclerotic plaque noted in the left internal carotid artery. The left internal carotid artery is very tortuous. There is homogeneous, smooth atherosclerotic plaque noted in the left external carotid artery. Antegrade flow is noted in the left vertebral artery. Procedure Carotid Duplex [id number]. This is a Carotid Duplex examination using B-mode, color flow and specral Doppler. Exam performed in department. VL/Carotid Duplex Ultrasound Interpretation Summary Mild (<50%) stenosis right extracranial internal carotid. Aneurysmal distal com mon carotid Mild (<50%) stenosis left extracranial internal carotid. Patent and antegrade vertebrals bilaterally. Ordering Physician: Mitchel Khan Referring Physician: Enrike Dobbins Chi Performed By: Marlen Vides RVT
--- OUTSIDE RECORDS SUMMARY | 2023-03-26 13:05 | XMS RPT_ITS | CCD ---
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 Name Role Phone Unavailable Primary Care Provider Mitchell Doyle MD, Jailene-Chi Primary Care Provider [phone] Vivek GRAVES, Jailene-Lamont Primary Care Provider [phone] BURT DOYLE Primary Care Unavailable HARPREET JERNIGAN Referring Unavailable HARPREET JERNIGAN Attending Unavailable HARPREET JERNIGAN Admitting Unavailable BURT DOYLE Primary Care Unavailable HARPREET JERNIGAN Attending Unavailable RERE, HARPREET Attending Unavailable Allergies Allergy Classification Reported Allergen(s) Allergy Type Date of Onset Reaction(s) Facility (7 sources) amLODIPine Drug Allergy 12-08-2020 [facility] (7 sources) Doxazosin Drug Allergy 10-09-2018 [facility] (7 sources) Influenza Vaccines Drug Intolerance 10-09-2018 [facility] Medications Current Medications Medication Drug Class(es) Dates Sig (Normalized) Sig (Original) ALPRAZolam 0.25 mg oral tablet (7 sources) Benzodiazepine Start: 01-28-20 22 take 1 tablet by mouth once daily Xanax 0.25 MG tablet Take 0.25 mg by mouth daily. 0 01/27/2022 Active amiodarone hydrochloride 200 mg oral tablet (7 sources) Antiarrhythmic Start: 03-31-19 23 take 0.5 tablet by mouth once daily amiodarone (Pacerone) 200 MG tablet TAKE ONE-HALF TABLET(100 MG) BY MOUTH EVERY DAY 0 03/31/2022 Active aspirin 81 mg chewable tablet (5 sources) Platelet Aggregation Inhibitor, Nonsteroidal Anti-inflammatory Drug Start: 05-24-19 23 End: 05-23-19 24 aspirin 81 MG chewable tablet Chew 1 tablet (81 mg) daily. 30 tablet 2 05/23/2022 05/23/2023 Active atorvastatin 40 mg oral tablet (7 sources) HMG-CoA Reductase Inhibitor Start: 03-20-19 take 1 tablet by mouth once daily for hyperlipidemia Lipitor 40 MG tablet 40 MG ORALLY DAILY FOR CHOLESTEROL MUST BE BRAND NAME, NO GENERIC. 0 03/20/2022 Active hydroCHLOROthiazide 25 mg oral tablet (7 sources) Thiazide Diuretic Start: 03-31-19 take 1 tablet by mouth once daily hydroCHLOROthiazide (HYDRODiuril) 25 MG tablet Take 25 mg by mouth daily. 0 03/31/2022 Active 24 hr isosorbide mononitrate 30 mg extended release oral tablet (7 sources) Nitrate Vasodilator Start: 04-11-19 take 2 tablets by mouth twice daily isosorbide mononitrate ER (Imdur) 30 MG 24 hr tablet GIVE 2 TABS BY MOUTH TWICE A DAY MUST BE WHITE PILL NOT RED PILL 0 04/11/2022 Active lisinopril 20 mg oral tablet (7 sources) Angiotensin Converting Enzyme Inhibitor Start: 02-10-20 take 1 tablet by mouth twice daily Zestril 20 MG tablet Take 20 mg by mouth 2 times daily. 0 02/09/2022 Active 24 hr metoprolol succinate 50 mg extended release oral tablet (7 sources) beta-Adrenergic [place] Start: 11-04-19 take 1 tablet by mouth twice daily Toprol XL 50 MG 24 hr tablet Take 50 mg by mouth 2 times daily. 0 11/03/2021 Active potassium chloride 10 meq extended release oral tablet (7 sources) Start: 06-16-19 take 2 tablets by mouth once daily potassium chloride CR (Klor-Con) 10 MEQ ER tablet TAKE 2 TABLETS ORALLY ONCE PER DAY FOR 90 DAYS 0 06/15/2021 Active Completed/Discontinued Medications Medication Drug Class(es) Dates Sig (Normalized) Sig (Original) 2 ml fentaNYL 0.05 mg/ml injection (2 sources) Opioid Agonist Start: 05-23-2022 End: 05-23-2022 fentaNYL (Sublimaze) injection iopamidol (Isovue-300) 61 % injection 105 mL (2 sources) Start: 05-23-2022 End: 05-23-2022 iopamidol (Isovue-300) 61 % injection 105 mL 10 ml lidocaine hydrochloride 10 mg/ml injection (2 sources) Antiarrhythmic, Amide Local Anesthetic Start: 05-23-2022 End: 05-23-2022 lidocaine PF (Xylocaine) 1 % injection 2 ml midazolam 1 mg/ml injection (2 sources) Benzodiazepine Start: 05-23-2022 End: 05-23-2022 midazolam (Versed) injection 1000 ml sodium chloride 9 mg/ml injection (2 sources) Start: 05-23-2022 End: 05-24-2022 sodium chloride 0.9 % infusion Problems Problem Classification Problem Date Documented Da te Episodic/Chronic Other and ill-defined cerebrovascular disease (8 sources) Intracranial aneurysm; Translations: [Cerebral aneurysm, nonruptured] Onset: 05-23-2022 Chronic Other and ill-defined cerebrovascular disease (2 sources) Cerebral aneurysm, nonruptured; Translations: [Cerebral aneurysm, nonruptured] Onset: 05-23-2022 Chronic Unclassified (2 sources) New Patient; Translations: [New Patient] Onset: 05-02-2022 Results Test Name Value Interpretation Reference Range Facil ity Vital Signs Date Time Vital Sign Value Performing Clinician Jimmy rush 01-22-2023 11:31-0500 Body height 158.8 cm Harpreet Jernigan MD Work Phone: [facility] 01-22-2023 11:31-0500 Body mass index (BMI) [Ratio] 20.34 kg/m2 Harpreet Jernigan MD Work Phone: [facility] 01-22-2023 11:31-0500 Body weight 51.26 kg Harpreet Jernigan MD Work Phone: [facility] 01-22-2023 11:31-0500 Diastolic blood pressure 103 mm[Hg] Harpreet Jernigan MD Work Phone: [facility] 01-22-2023 11:31-0500 Heart rate 67 /min Harpreet Jernigan MD Work Phone: [facility] 01-22-2023 11:31-0500 Respiratory rate 18 /min Harpreet Jernigan MD Work Phone: [facility] 01-22-2023 11:31-0500 Systolic blood pressure 161 mm[Hg] Harpreet Jernigan MD Work Phone: [facility] 05-23-2022 14:15-0400 Diastolic blood pressure 142 mm[Hg] Harpreet Jernigan MD Work Phone: [facility] 05-23-2022 14:15-0400 Heart rate 52 /min Harpreet Jernigan MD Work Phone: [facility] 05-23-2022 14:15-0400 SaO2% (BldA) [Mass fraction] 96 % Harpreet Jernigan MD Work Phone: [facility] 05-23-2022 14:15-0400 Systolic blood pressure 172 mm[Hg] Harpreet Jernigan MD Work Phone: [facility] 05-23-2022 12:00-0400 Respiratory rate 10 /min Harpreet Jernigan MD Work Phone: [facility] 05-23-2022 08:39-0400 Body height 152.4 cm Harpreet Jernigan MD Work Phone: [facility] 05-23-2022 08:39-0400 Body mass index (BMI) [Ratio] 23.83 kg/m2 Harpreet Jernigan MD Work Phone: [facility] 05-23-2022 08:39-0400 Body temperature 97.39 [degF] Harpreet Jernigan MD Work Phone: [facility] 05-23-2022 08:39-0400 Body weight 55.34 kg Harpreet Jernigan MD Work Phone: [facility] Encounters Encounter Date Encounter Type Care Provider Facility Start: 01-22-2023 End: 01-22-2023 ambulatory JAILENE-CHI VIVEK [facility] Start: 01-22-2023 End: 01-22-2023 Office outpatient visit 25 minutes Harpreet Jernigan MD Work Phone: [facility] Endovascular Neurosurgery Procedures Date Procedure Procedure Detail Performing Clinician Start: 05-23-2022 RFA Cerebral arterie s Bilateral Views W contrast IA Harpreet Jernigan MD Work Phone: Start: 05-23-2022 Basic metabolic pane l calcium total Harpreet Jernigan MD Work Phone: Start: 12-18-2016 Lipid 1996 panel - S kacey or Plasma Conchis Thompson MA Start: 09-05-2016 Lipid 1996 panel - S kacey or Plasma Tamika Nayak RN Plan of Treatment Date Care Activity Detail Author Start: 05-23-2023 End: 01-23-2024 CTA Head vessels and Neck vessels WO and W contrast IV CTA head neck angio w and wo IV contrast Imaging Routine Cerebral aneurysm Expected: 05/23/2023, Expires: 01/23/2024 [facility] Work Phone: Payers Date Payer Category Payer Unknown ANTHEM BLUE CROS S AN[employer]M [employer]UE [employer]OSS [id number] 2006-Present [address] [place] [address] Commercial [id number] 2006 Unknown [id number] 2004 Medicare MEDICARE MEDICAR E PART A AND B [id number] 2004-Present [address] [place] [address] Medicare [id number] 2004 Medicare [id number] Social History Date Type Detail Facility Tobacco smoking status 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 [facility] Start: 1940 Sex Assigned At Not on file S [facility] Start: 04-22-2022 End: 05-23-2022 Exposure to SARS-CoV-2 (event) Not sure [facility] Start: 05-23-2022 Tobacco smoking status OHIS Ex-smoke r [facility] End: 02-26-2022 History of tobacco use Current smoker [facility] End: 02-26-2022 History of tobacco use Cigarette Smoker [facility] Start: 05-23-2022 End: 01-22-2023 Cigarettes smoked current (pack per day) - Reported 0.3 [facility] Start: 05-23-2022 End: 01-22-2023 Tobacco use and exposure Smokeless tobacco non-user [facility] Start: 05-23-2022 End: 01-22-2023 Alcohol intake Current drinker of alcohol (finding) [facility] Start: 05-23-2022 Alcohol Comment [facility]x/[address] 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 Per my last note: She was seen by Dr. Khan at [facility] 12/2021 for symptomatic severe right ICA stenosis. Recommendation at that time was for surgical intervention (CEA) due to circumferential calcification. Also noted was a 18mm x 13mm supraclinoid ICA aneurysm . She underwent surgical repair 01/2022 without event. 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 We discussed the benefits and risks of endovascular repair given her age and the asymptomatic nature of this dolichoectasia vessel and she (and her nephew) have opted for conservative management and observation. She has had no issues since her angiogram and declines any new weakness or headache. She is still smoking. Past Medical History: Diagnosis Date Arrhythmia Bladder cancer (HCC) Cancer (CMS/HCC) (HCC) Heart valve disease Hyperlipidemia Hypertension Myocardial infarction (HCC) Past Surgical History: Procedure Laterality Date BACK SURGERY 15 years ago, mid back BLADDER SURGERY CARDIAC CATHETERIZATION CARDIAC SURGERY INSERT / REPLACE / REMOVE PACEMAKER OTHER SURGICAL HISTORY 02/08/2022 pt states carotid surgery OTHER SURGICAL HISTORY jaw surgery 30 years ago Current Outpatient Medications: amiodarone (Pacerone) 200 MG tablet, TAKE ONE-HALF TABLET(100 MG) BY MOUTH EVERY DAY, Disp: , Rfl: aspirin 81 MG chewable tablet, Chew 1 tablet (81 mg) daily., Disp: 30 tablet, Rfl: 2 hydroCHLOROthiazide (HYDRODiuril) 25 MG tablet, Take 25 mg by mouth daily., Disp: , Rfl: isosorbide mononitrate ER (Imdur) 30 MG 24 hr tablet, GIVE 2 TABS BY MOUTH TWICE A DAY MUST BE WHITE PILL NOT RED PILL, Disp: , Rfl: Lipitor 40 MG tablet, 40 MG ORALLY DAILY FOR CHOLESTEROL MUST BE BRAND NAME, NO GENERIC., Disp: , Rfl: potassium chloride CR (Klor-Con) 10 MEQ ER tablet, TAKE 2 TABLETS ORALLY ONCE PER DAY FOR 90 DAYS, Disp: , Rfl: Toprol XL 50 MG 24 hr tablet, Take 50 mg by mouth 2 times daily., Disp: , Rfl: Xanax 0.25 MG tablet, Take 0.25 mg by mouth daily., Disp: , Rfl: Zestril 20 MG tablet, Take 20 mg by mouth 2 times daily., Disp: , Rfl: Social History Tobacco Use Smoking status: Every Day Packs/day: .25 Types: Cigarettes Last attempt to quit: 02/26/2022 Years since quittin.9 Smokeless tobacco: Never Substance Use Topics Alcohol use: Yes Comment: rare Family History Problem Relation Name Age of Onset Heart disease Mother Examination: BP Readings from Last 3 Encounters: 01/22/23 (!) 161/103 05/23/22 (!) 172/142 05/02/22 (!) 160/99 Wt Readings from Last 3 Encounters: 01/22/23 51.3 kg (113 lb) 05/23/22 55.3 kg (122 lb) 05/02/22 56.7 kg (125 lb) BP (!) 161/103 (BP Location: Right arm, Patient Position: Sitting, BP Cuff Size: Small adult) Pulse 67 Resp 18 Ht 1.588 m (5' 2.5 ) Wt 51.3 kg (113 lb) BMI 20.34 kg/m Physical Exam Neurological Examination: Higher Functions: Mental Status Exam: Level of Alertness:Awake Orientation: person , place , time , Memory:normal Fund of Knowledge: normal Attention/Concentration: normal Language: normal Dysarthria Not present Cranial Nerves: -II Visual acuity: normal -II Visual garcia: normal -III Pupils (~ 3 mm OD, 3 mm OS) equal, round, reactive to light -III-IV- Extraocular Movements: intact -Nystagmus Not present -Saccades and pursuits normal -V Facial sensation: intact -VII Facial strength: intact -VIII Hearing: intact -X Palate: intact -XI Shoulder shrug: intact -XII Tongue movement: normal Funduscopic Exam: normal Motor Examination: Tone Normal -Bulk: normal -Muscle Stretch : Drift:absent normal -Reflexes ; normal -Plantar responce: Flexor bilaterally Sensory Intact to light touch, pain / temperature, proprioception, Coordination: Arms Normal finger to nose, Tremors not present, Gait Normal Imaging reviewed with patient: Cerebral angiogram, CT imaging reviewed with patient and nephew. Impression/Plan: 82 yo woman here for fu fusiform dilation of a large segment of the distal right ICA. - We discussed the benefits, risks, and alternatives to endovascular repair of her this asymptomatic vessel. We discussed risks of both ischemic and hemorrhagic stroke and also the warning signs of each. Given her age and other clinical considerations we will pursue with conservative medical management (I.e. smoking cessation and improved BP control) and observation. Will plan CTA 1 year from prior examination (approx 04/2023) and 1 year clinic follow-up. Plan to call to see us sooner with worsening on CT or new clinical symptoms. Continue daily ASA for stroke prevention. MD Rere I spent 40 minutes with the patient discussing clinical history, imaging, and treatment options (medical, endovascular and surgical). They expressed understanding and agreement with the plan. Patient Education: ? 3 elements of education during at least one visit within a 12 month period - lifestyle, physical activity, diet and medications. Life Style Modification: Yes Smoking cessation counseling: Yes documented in this encounter [facility] 01-16-2023 Telephone encount er Note Patient has an appointment scheduled Monday 01/[address] Richter [facility] 01-16-2023 Miscellaneous Notes Formattin g of this note might be different from the original. Patient has an appointment scheduled Monday 01/[address] Richter noted Called and discussed with patient. She reports that she was told in April that she would be scheduled for surgery in December. Reviewed notes and the plan states to manage medically and monitor yearly with noninvasive monitoring. She is rescheduled to see Dr. Jernigan on 01/22 at 11:30 and we can review her images a determine a treatment plan at that time Patient got rescheduled but she will not be home the rest of the day States that she would really like a call tomorrow morning if possible I have been working on rescheduling- Will call her now I was going to call the patient today but I see she is still scheduled on the clinic next week that was supposed to be rescheduled. I don't want to call her before she gets rescheduled and cause confusion Patient called office and states that she has heard Nothing about follow up from the office. States that she had a procedure with Dr Jernigan on May 18 She had an angiogram but states that the procedure was a mapping of her brain States that she was suppose to have another procedure done but never heard anything. Per Procedure notes from angiogram 05/23/22: Fusiform dilatation and dolichoectasia of the distal right ICA. The fusiform aneurysmal vessel incorporates the supraclinoid ICA to the communicating segment (approximately 2cm) and also incorporates the proximal right posterior communicating artery and right POLYSTYRENE BEAD MOLDER. It measures almost 9 mm in the greatest diameter dimension. Aneurysm and stroke rupture risk were discussed in detail with the patient and her nephew. Treatment options were discussed as well as alternatives to treatment. At this time we will continue to manage medically (BP control, smoking cessation) and monitor with noninvasive imaging yearly. Stroke and rupture risk in the interim were discussed. I recommend she continue her daily home ASA Patient sounds a little confused and is insisting on a call from some one to discuss this with her and she states that she is really frightened something is going to happen with the Aneurysm. Would like A call from Dr Chisholm or Lisa if possible. FYI- I did make her an appointment with Dr Jernigan 01/08/23 @ 1230 PM for patient . If you think this appointment needs cancelled please let me know. - Will send encounter to Dr Bon Gonzalez Thank You documented in this encounter [employer] 01-09-2023 Telephone encount er Note noted [facility] 01-04-2023 Telephone encount er Note Called and discussed with patient. She reports that she was told in April that she would be scheduled for surgery in December. Reviewed notes and the plan states to manage medically and monitor yearly with noninvasive monitoring. She is rescheduled to see Dr. Jernigan on 01/22 at 11:30 and we can review her images a determine a treatment plan at that time [employer] Work Phone: 01-04-2023 Note Pt says she needs to talk to someone about her procedure she had done. She says this is very important. Pt says she has left multiple messages and no one has returned her call. [facility] 01-02-2023 Telephone encount er Note Patient got rescheduled but she will not be home the rest of the day States that she would really like a call tomorrow morning if possible [facility] 01-02-2023 Telephone encount er Note I have been working on rescheduling- Will call her now [facility] 01-02-2023 Telephone encount er Note I was going to call the patient today but I see she is still scheduled on the clinic next week that was supposed to be rescheduled. I don't want to call her before she gets rescheduled and cause confusion [facility] 12-27-2022 Telephone encount er Note Patient called office and states that she has heard Nothing about follow up from the office. States that she had a procedure with Dr Jernigan on May 18 She had an angiogram but states that the procedure was a mapping of her brain States that she was suppose to have another procedure done but never heard anything. Per Procedure notes from angiogram 05/23/22: Fusiform dilatation and dolichoectasia of the distal right ICA. The fusiform aneurysmal vessel incorporates the supraclinoid ICA to the communicating segment (approximately 2cm) and also incorporates the proximal right posterior communicating artery and right POLYSTYRENE BEAD MOLDER. It measures almost 9 mm in the greatest diameter dimension. Aneurysm and stroke rupture risk were discussed in detail with the patient and her nephew. Treatment options were discussed as well as alternatives to treatment. At this time we will continue to manage medically (BP control, smoking cessation) and monitor with noninvasive imaging yearly. Stroke and rupture risk in the interim were discussed. I recommend she continue her daily home ASA Patient sounds a little confused and is insisting on a call from some one to discuss this with her and she states that she is really frightened something is going to happen with the Aneurysm. Would like A call from Dr Chisholm or Lisa if possible. MACK Frazier did make her an appointment with Dr Jernigan 01/08/23 @ 1230 PM for patient . If you think this appointment needs cancelled please let me know. - Will send encounter to Dr Crockett / Lisa Thank You [facility] 05-23-2022 Note Formatting of this n ote might be different from the original. Patient discharged home through same day surgery department. Homegoing instructions given, IV removed, and patient left with her belongings and her nephew. [facility] 05-23-2022 Note Formatting of this n ote might be different from the original. Patient discharged home through same day surgery department. Homegoing instructions given, IV removed, and patient left with her belongings and her nephew. [facility] 05-23-2022 Miscellaneous Notes Formattin g of this note might be different from the original. Patient discharged home through same day surgery department. Homegoing instructions given, IV removed, and patient left with her belongings and her nephew. Pt states that ICD went off about 3 years ago when she was leaving the hospital after a heart surgery. Pt unsure if it was a valve surgery or a stent placement. documented in this encounter [facility] 05-23-2022 Note [facility] PreProcedure History and Physical Consults Name: Stanley Hernandez : 1940 (Age-81 y.o.) Date of Service: Pt seen/examined on 05/23/2022 Chief Complaint: 81 y.o. female who we are asked to see/evaluate Stanley Hernandez for pre-procedure evaluation prior to IR ANGIOGRAM CEREBRAL INTERVEN. History Of Present Illness: HPI: Here for cerebral arteriogram Severity: Mild Duration: > one week Review of systems negative except for items below: Past Medical History: Diagnosis Date Arrhythmia Bladder cancer (CMS/HCC) (HCC) Cancer (CMS/HCC) (HCC) Heart valve disease Hyperlipidemia Hypertension Myocardial infarction (CMS/HCC) (HCC) There are no problems to display for this patient. Past Surgical History: Procedure Laterality Date BACK SURGERY 15 years ago, mid back BLADDER SURGERY CARDIAC CATHETERIZATION CARDIAC SURGERY INSERT / REPLACE / REMOVE PACEMAKER OTHER SURGICAL HISTORY 02/08/2022 pt states carotid surgery OTHER SURGICAL HISTORY jaw surgery 30 years ago Family History Problem Relation Name Age of Onset Heart disease Mother Medications: Prior to Admission medications Medication Sig Start Date End Date Taking? Authorizing Provider amiodarone (Pacerone) 200 MG tablet TAKE ONE-HALF TABLET(100 MG) BY MOUTH EVERY DAY 03/31/22 Yes Historical Provider, hydroCHLOROthiazide (HYDRODiuril) 25 MG tablet Take 25 mg by mouth daily. 03/31/22 Yes Historical Provider, isosorbide mononitrate ER (Imdur) 30 MG 24 hr tablet GIVE 2 TABS BY MOUTH TWICE A DAY MUST BE WHITE PILL NOT RED PILL 04/11/22 Yes Historical Provider, Lipitor 40 MG tablet 40 MG ORALLY DAILY FOR CHOLESTEROL MUST BE BRAND NAME, NO GENERIC. 03/20/22 Yes Historical Provider, potassium chloride CR (Klor-Con) 10 MEQ ER tablet TAKE 2 TABLETS ORALLY ONCE PER DAY FOR 90 DAYS 06/15/21 Yes Historical Provider, Toprol XL 50 MG 24 hr tablet Take 50 mg by mouth 2 times daily. 11/03/21 Yes Historical Provider, Xanax 0.25 MG tablet Take 0.25 mg by mouth daily. 01/27/22 Yes Historical Provider, Zestril 20 MG tablet Take 20 mg by mouth 2 times daily. 02/09/22 Yes Historical Provider, Social history and Laboratory Data: Lab Results Component Value Date HGB 14.6 05/23/2022 HCT 44.1 05/23/2022 PLT 277 05/23/2022 WBC 8.6 05/23/2022 Social History Tobacco Use Smoking Status Former Packs/day: 0.25 Types: Cigarettes Quit date: 02/26/2022 Years since quittin.2 Smokeless Tobacco Never Social History Substance and Sexual Activity Alcohol Use Yes Comment: 1x/3 months Social History Substance and Sexual Activity Drug Use Not on file BP (!) 168/91 Pulse 65 Temp 36.3 ?C (97.4 ?F) (Temporal) Resp 18 Ht 1.524 m (5') Wt 55.3 kg (122 lb) SpO2 97% BMI 23.83 kg/m? Physical Examination: onstitutional: No apparent distress, well nourished, and in stable condition. Pt wearing a mask and I wore a mask. Performed a no touch examination due to Covid considerations. Cardiac: Regular rate and rhythm Per PT Abdomen: Soft and nonacute Per Pt Pulmonary: Clear bilaterally and no wheezing Per pt Neuro: Moves extremities X4 with no tremors HEENT: No gross cranial nerve defects and anicteric sclera Skin: Skin warm and dry with no visible rashes Vascular: Adequate perfusion of extremities with no cyanosis Psych: Alert and oriented x3 with appropriate affect Lymphatics: No swelling of arms/hands with no pedal edema Neck: FROM with no JVD Additional Notes:None After review of the medical history and physical assessment, medications, allergies, patient's current medical condition, and labs, this patient is at acceptable risk for the planned procedure at this facility. Electronically signed by: Gm Clark MD, MD Date: 05/23/2022 at 9:07 AM [facility] 05-23-2022 Nurse Note To IR prep and recovery, right groin site benign no bleeding or hematoma . Pt pleasant denies complaints. [facility] 05-23-2022 Nurse Note To IR prep and recovery, right groin site benign no bleeding or hematoma . Pt pleasant denies complaints. Patient arrived from home for diagnostic cerebral angiogram. Dr. Jernigan in to speak with the patient regarding procedure, and consent was obtained. Patient's lab values and allergies were reviewed. Patient was placed supine on exam table, prepped and draped in sterile fashion. Telemetry monitors were placed, and conscious sedation was administered. Patient tolerated the procedure well. Transfer to IR recovery area. documented in this encounter [facility] 05-23-2022 Nurse Note Patient arrived from home for diagnostic cerebral angiogram. Dr. Jernigan in to speak with the patient regarding procedure, and consent was obtained. Patient's lab values and allergies were reviewed. Patient was placed supine on exam table, prepped and draped in sterile fashion. Telemetry monitors were placed, and conscious sedation was administered. Patient tolerated the procedure well. Transfer to IR recovery area. [facility] 05-23-2022 History and physical note [facility] Comprehensive PreProcedure History and Physical Consults Name: Stanley Hernandez : 1940 (Age-81 y.o.) Date of Service: Pt seen/examined on 05/23/2022 Chief Complaint: 81 y.o. female who we are asked to see/evaluate Stanley Hernandez for pre-procedure evaluation prior to IR ANGIOGRAM CEREBRAL INTERVEN. History Of Present Illness: HPI: Here for cerebral arteriogram Severity: Mild Duration: > one week Review of systems negative except for items below: Past Medical History: Diagnosis Date Arrhythmia Bladder cancer (CMS/HCC) (HCC) Cancer (CMS/HCC) (HCC) Heart valve disease Hyperlipidemia Hypertension Myocardial infarction (CMS/HCC) (HCC) There are no problems to display for this patient. Past Surgical History: Procedure Laterality Date BACK SURGERY 15 years ago, mid back BLADDER SURGERY CARDIAC CATHETERIZATION CARDIAC SURGERY INSERT / REPLACE / REMOVE PACEMAKER OTHER SURGICAL HISTORY 02/08/2022 pt states carotid surgery OTHER SURGICAL HISTORY jaw surgery 30 years ago Family History Problem Relation Name Age of Onset Heart disease Mother Medications: Prior to Admission medications Medication Sig Start Date End Date Taking? Authorizing Provider amiodarone (Pacerone) 200 MG tablet TAKE ONE-HALF TABLET(100 MG) BY MOUTH EVERY DAY 03/31/22 Yes Historical Provider, hydroCHLOROthiazide (HYDRODiuril) 25 MG tablet Take 25 mg by mouth daily. 03/31/22 Yes Historical Provider, isosorbide mononitrate ER (Imdur) 30 MG 24 hr tablet GIVE 2 TABS BY MOUTH TWICE A DAY MUST BE WHITE PILL NOT RED PILL 04/11/22 Yes Historical Provider, Lipitor 40 MG tablet 40 MG ORALLY DAILY FOR CHOLESTEROL MUST BE BRAND NAME, NO GENERIC. 03/20/22 Yes Historical Provider, potassium chloride CR (Klor-Con) 10 MEQ ER tablet TAKE 2 TABLETS ORALLY ONCE PER DAY FOR 90 DAYS 06/15/21 Yes Historical Provider, Toprol XL 50 MG 24 hr tablet Take 50 mg by mouth 2 times daily. 11/03/21 Yes Historical Provider, Xanax 0.25 MG tablet Take 0.25 mg by mouth daily. 01/27/22 Yes Historical Provider, Zestril 20 MG tablet Take 20 mg by mouth 2 times daily. 02/09/22 Yes Historical Provider, Social history and Laboratory Data: Lab Results Component Value Date HGB 14.6 05/23/2022 HCT 44.1 05/23/2022 PLT 277 05/23/2022 WBC 8.6 05/23/2022 Social History Tobacco Use Smoking Status Former Packs/day: 0.25 Types: Cigarettes Quit date: 02/26/2022 Years since quittin.2 Smokeless Tobacco Never Social History Substance and Sexual Activity Alcohol Use Yes Comment: 1x/3 months Social History Substance and Sexual Activity Drug Use Not on file BP (!) 168/91 Pulse 65 Temp 36.3 C (97.4 F) (Temporal) Resp 18 Ht 1.524 m (5') Wt 55.3 kg (122 lb) SpO2 97% BMI 23.83 kg/m Physical Examination: onstitutional: No apparent distress, well nourished, and in stable condition. Pt wearing a mask and I wore a mask. Performed a no touch examination due to Covid considerations. Cardiac: Regular rate and rhythm Per PT Abdomen: Soft and nonacute Per Pt Pulmonary: Clear bilaterally and no wheezing Per pt Neuro: Moves extremities X4 with no tremors HEENT: No gross cranial nerve defects and anicteric sclera Skin: Skin warm and dry with no visible rashes Vascular: Adequate perfusion of extremities with no cyanosis Psych: Alert and oriented x3 with appropriate affect Lymphatics: No swelling of arms/hands with no pedal edema Neck: FROM with no JVD Additional Notes:None After review of the medical history and physical assessment, medications, allergies, patient's current medical condition, and labs, this patient is at acceptable risk for the planned procedure at this facility. Electronically signed by: Gm Clark MD, MD Date: 05/23/2022 at 9:07 AM [facility] [employer] Work Phone: 05-23-2022 History and physical note [facility] Comprehensive PreProcedure History and Physical Consults Name: Stanley Hernandez : 1940 (Age-81 y.o.) Date of Service: Pt seen/examined on 05/23/2022 Chief Complaint: 81 y.o. female who we are asked to see/evaluate Stanley Hernandez for pre-procedure evaluation prior to IR ANGIOGRAM CEREBRAL INTERVEN. History Of Present Illness: HPI: Here for cerebral arteriogram Severity: Mild Duration: > one week Review of systems negative except for items below: Past Medical History: Diagnosis Date Arrhythmia Bladder cancer (CMS/HCC) (HCC) Cancer (CMS/HCC) (HCC) Heart valve disease Hyperlipidemia Hypertension Myocardial infarction (CMS/HCC) (HCC) There are no problems to display for this patient. Past Surgical History: Procedure Laterality Date BACK SURGERY 15 years ago, mid back BLADDER SURGERY CARDIAC CATHETERIZATION CARDIAC SURGERY INSERT / REPLACE / REMOVE PACEMAKER OTHER SURGICAL HISTORY 02/08/2022 pt states carotid surgery OTHER SURGICAL HISTORY jaw surgery 30 years ago Family History Problem Relation Name Age of Onset Heart disease Mother Medications: Prior to Admission medications Medication Sig Start Date End Date Taking? Authorizing Provider amiodarone (Pacerone) 200 MG tablet TAKE ONE-HALF TABLET(100 MG) BY MOUTH EVERY DAY 03/31/22 Yes Historical Provider, hydroCHLOROthiazide (HYDRODiuril) 25 MG tablet Take 25 mg by mouth daily. 03/31/22 Yes Historical Provider, isosorbide mononitrate ER (Imdur) 30 MG 24 hr tablet GIVE 2 TABS BY MOUTH TWICE A DAY MUST BE WHITE PILL NOT RED PILL 04/11/22 Yes Historical Provider, Lipitor 40 MG tablet 40 MG ORALLY DAILY FOR CHOLESTEROL MUST BE BRAND NAME, NO GENERIC. 03/20/22 Yes Historical Provider, potassium chloride CR (Klor-Con) 10 MEQ ER tablet TAKE 2 TABLETS ORALLY ONCE PER DAY FOR 90 DAYS 06/15/21 Yes Historical Provider, Toprol XL 50 MG 24 hr tablet Take 50 mg by mouth 2 times daily. 11/03/21 Yes Historical Provider, Xanax 0.25 MG tablet Take 0.25 mg by mouth daily. 01/27/22 Yes Historical Provider, Zestril 20 MG tablet Take 20 mg by mouth 2 times daily. 02/09/22 Yes Historical Provider, Social history and Laboratory Data: Lab Results Component Value Date HGB 14.6 05/23/2022 HCT 44.1 05/23/2022 PLT 277 05/23/2022 WBC 8.6 05/23/2022 Social History Tobacco Use Smoking Status Former Packs/day: 0.25 Types: Cigarettes Quit date: 02/26/2022 Years since quittin.2 Smokeless Tobacco Never Social History Substance and Sexual Activity Alcohol Use Yes Comment: 1x/3 months Social History Substance and Sexual Activity Drug Use Not on file BP (!) 168/91 Pulse 65 Temp 36.3 C (97.4 F) (Temporal) Resp 18 Ht 1.524 m (5') Wt 55.3 kg (122 lb) SpO2 97% BMI 23.83 kg/m Physical Examination: onstitutional: No apparent distress, well nourished, and in stable condition. Pt wearing a mask and I wore a mask. Performed a no touch examination due to Covid considerations. Cardiac: Regular rate and rhythm Per PT Abdomen: Soft and nonacute Per Pt Pulmonary: Clear bilaterally and no wheezing Per pt Neuro: Moves extremities X4 with no tremors HEENT: No gross cranial nerve defects and anicteric sclera Skin: Skin warm and dry with no visible rashes Vascular: Adequate perfusion of extremities with no cyanosis Psych: Alert and oriented x3 with appropriate affect Lymphatics: No swelling of arms/hands with no pedal edema Neck: FROM with no JVD Additional Notes:None After review of the medical history and physical assessment, medications, allergies, patient's current medical condition, and labs, this patient is at acceptable risk for the planned procedure at this facility. Electronically signed by: Gm Clark MD, MD Date: 05/23/2022 at 9:07 AM documented in this encounter [facility] 05-23-2022 Note Formatting of this n ote might be different from the original. Pt states that ICD went off about 3 years ago when she was leaving the hospital after a heart surgery. Pt unsure if it was a valve surgery or a stent placement. [facility] 05-23-2022 Note Formatting of this n ote might be different from the original. Pt states that ICD went off about 3 years ago when she was leaving the hospital after a heart surgery. Pt unsure if it was a valve surgery or a stent placement. [facility] 05-19-2022 Note Spoke with patient. Reviewed instructions for procedure. Aware of arrival time at 8:00 am to Same Day Surgery ([facility]) on 05-23-22, nothing to eat after midnight, and may drink water or black coffee up until 2 hours prior to the procedure. It is ok to take your morning medications Will need a responsible person to drive you home after the procedure is completed. May not use public transportation unless accompanied by a responsible adult family member or friend. Questions answered. Verbalized understanding. Directions given for Same Day Surgery. Follow signs around the hospital to Main Entrance which is located at [address] from [facility]. You may use [employer]. Each patient to receive one validation ticket for [employer]. It is also possible to park in the Main Parking Garage. Proceed to bridge into hospital and check in with Same Day Surgery. [facility] 05-19-2022 Note Formatting of this n ote might be different from the original. Spoke with patient. Reviewed instructions for procedure. Aware of arrival time at 8:00 am to Same Day Surgery ([facility]) on 05-23-22, nothing to eat after midnight, and may drink water or black coffee up until 2 hours prior to the procedure. It is ok to take your morning medications Will need a responsible person to drive you home after the procedure is completed. May not use public transportation unless accompanied by a responsible adult family member or friend. Questions answered. Verbalized understanding. Directions given for Same Day Surgery. Follow signs around the hospital to Main Entrance which is located at [address] Turn onto [address] from [facility]. You may use [employer]. Each patient to receive one validation ticket for [employer]. It is also possible to park in the Main Parking Garage. Proceed to bridge into hospital and check in with Same Day Surgery. [facility] 05-19-2022 Miscellaneous Notes Formattin g of this note might be different from the original. Spoke with patient. Reviewed instructions for procedure. Aware of arrival time at 8:00 am to Same Day Surgery ([facility]) on 05-23-22, nothing to eat after midnight, and may drink water or black coffee up until 2 hours prior to the procedure. It is ok to take your morning medications Will need a responsible person to drive you home after the procedure is completed. May not use public transportation unless accompanied by a responsible adult family member or friend. Questions answered. Verbalized understanding. Directions given for Same Day Surgery. Follow signs around the hospital to Main Entrance which is located at [address] Turn onto [address] from [facility] [address]. You may use [employer]. Each patient to receive one validation ticket for [employer]. It is also possible to park in the Main Parking Garage. Proceed to bridge into hospital and check in with Same Day Surgery. documented in this encounter [facility] 05-05-2022 Note Pt can take all of h er medications the morning of her procedure [facility] 05-04-2022 Telephone encount er Note Error. [facility] 05-04-2022 Miscellaneous Notes Formattin g of this note might be different from the original. Error. documented in this encounter [facility] Cerebral aneurysm- Primary Cerebral aneurysm, nonruptured [facility] Attachments The following attachments cannot be sent through Care Everywhere. * [facility] Attachments The following attachments cannot be sent through Care Everywhere. * Risk Factors for Stroke ([place]akh) * Quitting Smoking ([place]) documented in [facility] Reason for Referral Specialty Diagnoses / Procedures Referred By Jillian aguiar Referred To Contact Radiology Diagnoses Cerebral aneurysm Procedures IR angiogram cerebral with possible intervention Harpreet Jernigan MD [address] [place] [id number] Referral ID Status Reason Start Date Expiration Date Visits Re quested Visits Authorized [id number] Closed 05/02/2022 10/29/2022 1 1 Specialty Diagnoses / Procedures Referred By Jillian aguiar Referred To Contact Radiology Diagnoses Cerebral aneurysm Procedures CTA head neck angio w and wo IV contrast Harpreet Jernigan MD [address] [place] [id number] Referral ID Status Reason Start Date Expiration Date V isits Requested Visits Authorized [id number] Pending Review 01/22/2023 01/22/2024 1 1 Summary Purpose Family History No Family History Records Found Advance Directives No Advanced Directives Records Found Additional Source Comments Reason for Visit (unrecogniz ed section and content) Specialty Diagnoses / Procedures Referred By Jillian aguiar Referred To Contact Radiology Diagnoses Cerebral aneurysm Procedures IR angiogram cerebral with possible intervention Harpreet Jernigan MD [address] [place] [phone] Referral ID Status Reason Start Date Expiration Date Visits Re quested Visits Authorized [id number] Closed 05/02/2022 10/29/2022 1 1 Reason Onset Date Comments Forms/questionnaires 12/27/2022 Questions a bout her follow up Reason Comments Follow-up [facility] Care Teams (unrecognized sec tion and content) Lime Mixer Tender Relationship Specialty Start Date End Date Burt Doyle MD [address] [facility] [address] [place] [address] PCP - General Geriatric Medicine 05/18/22 Lime Mixer Tender Relationship Specialty Start Date End Date Burt Doyle MD [address] [facility] [address] [place] [id number] PCP - General Geriatric Medicine 05/18/22 Lime Mixer Tender Relationship Specialty Start Date End Date Burt Doyle MD [address] [facility] [address] [place] [address] PCP - General Geriatric Medicine 05/18/22 INFORMATION SOURCE (unrecogn ized section and content) FOR RECORDS PERTAINING TO PATIENTS WHO ARE OR HAVE BEEN ENROLLED IN A CHEMICAL DEPENDENCY/SUBSTANCEABUSE PROGRAM, SOME INFORMATION MAY BE OMITTED. This clinical summary was aggregated from multiple sources. Caution should be exercised in using it in the provision of clinical care. This summary normalizes information from multiple sources, and as a consequence, information in this document may materially change the coding, format and clinical context of patient data. In addition, data may be omitted in some cases. CLINICAL DECISIONS SHOULD BE BASED ON THE PRIMARY CLINICAL RECORDS. [employer] provides no warranty or guarantee of the accuracy or completeness of information in this document.
== END | disposition home or self-care (01) ==
LOC: CVS 12:43
PROVIDERS: PCP Family Medicine Geriatric Medicine; Referring Provider Surgery Trauma Surgery; Visit Provider Surgery Trauma Surgery
DX: I65.21 Occlusion and stenosis of right carotid artery (principal)
CPT/HCPCS: 93880

== ENCOUNTER → 2023-04-10 | Outpatient (CLI) | payer MEDICARE, BC, SELFPAY ==
--- NOTE | 2023-04-10 12:57 | CT_ITS ---
STUDY: CTA HEAD AND NECK WITH CONTRAST REASON FOR EXAM: Female, 82 years old. 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 RADIATION DOSAGE (If Supplied By Facility): CTDIvol = ( 28 ) mGy, DLP = ( 1298.86 ) mGycm TECHNIQUE: CT angiography was performed with a multi-detector CT scanner. Data acquisition was obtained from the skull base through the vertex following intravenous administration of 50 mL of Isovue 370. MIP images were reconstructed from the axial data set. Post-processing of the angiographic images was performed, with multiplanar reformation and 3D reconstruction. Individualized dose optimization techniques were used for this CT. COMPARISON: Comparison is made with prior study dated December 06, 2021. FINDINGS: Normal bilateral petrous carotid arteries. Once again, there is evidence of dilatation of the cavernous portion of the right internal carotid artery at the level of the supraclinoid bifurcation and right posterior communicating artery. Normal left cavernous carotid artery with a normal supraclinoid bifurcation. Normal right A1 segments of the anterior cerebral artery. Normal left A1 segments of the anterior cerebral artery. Normal intact anterior communicating artery (ACOM). Normal bilateral A2 segments of the anterior cerebral arteries. Normal right M1 and M2 segments of the middle cerebral arteries, with a normal M1 bifurcation. Normal left M1 and M2 segments of the middle cerebral arteries, with a normal M1 bifurcation. Normal right posterior communicating artery (PCOM). Normal left posterior communicating artery (PCOM). Normal bilateral vertebral arteries. Normal basilar artery with a normal basilar bifurcation. The visualized bilateral superior cerebellar (SCA) arteries are normal. Normal bilateral P1, P2 and visualized P3 segments of the posterior cerebral arteries. There is no demonstrated aneurysm of the [place] of [place]. There is evidence of cerebral atrophy with decreased attenuation in the periventricular region suggestive of chronic ischemic changes. AORTIC ARCH: There is atherosclerotic calcific plaque formation of the aortic arch and great vessels arising from the aortic arch, without a hemodynamically significant stenosis. There is a normal origin of the brachiocephalic, left common carotid, and left subclavian arteries. Mild plaque formation of the right brachiocephalic artery. RIGHT CAROTID ARTERIES: Normal right common carotid artery (CCA). There is dilatation of the distal right common carotid artery and carotid bifurcation with a transverse dimension of 9.3 mm. Findings suggestive of prior right carotid endarterectomy. Normal origin of the right internal carotid (ICA) artery without a hemodynamically significant stenosis. Normal visualized cervical portion of the right internal carotid artery. Normal origin of the right external carotid artery (ECA). LEFT CAROTID ARTERIES: Normal left common carotid artery (CCA). Normal left common carotid bulb. There is moderate atherosclerotic plaque formation of the origin of the left internal carotid artery with an estimated stenosis of 50-69% stenosis. Normal visualized cervical portion of the left internal carotid artery. Normal origin of the left external carotid artery (ECA). VERTEBRAL ARTERIES: Normal bilateral vertebral arteries. 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 Prior endarterectomy of the right carotid bifurcation with dilatation. Electronically Signed: Derek Villalobos MD at 15:28 EST ,
[2023-04-10 13:22] LABS: CREATININE FINGERSTICK 1.2 mg/dL (0.55-1.02)
== END | disposition home or self-care (01) ==
LOC: CT 12:55
PROVIDERS: PCP Family Medicine Geriatric Medicine; Referring Provider Physician Assistant; Visit Provider Physician Assistant
DX: I77.9 Disorder of arteries and arterioles, unspecified (principal)
CPT/HCPCS: 70496; 70498; Q9967

== ENCOUNTER → 2023-04-18 | Outpatient (CLI) | payer MEDICARE, BC, SELFPAY ==
[2023-04-18 16:09] LABS: Color, Urine Yellow (Yellow); Glucose, Dipstick Normal (Normal); Ketone-Dipstick Negative (Negative); Leukocyte Esterase-Dipstick Negative /ul (Negative); Nitrite-Dipstick Negative (Negative); Occult Blood-Urine 25 /ul (Negative); Protein-Dipstick Negative (Negative); Urine Bilirubin Dipstick Negative (Negative); Urine Clarity Clear (Clear); Urine Urobilinogen Normal (Normal)
[2023-04-18 16:43] LABS: Syphilis Antibodies Reactive; Vitamin B12 402 pg/mL (211-911)
== END | disposition home or self-care (01) ==
LOC: POLAB3 15:18
PROVIDERS: PCP Family Medicine Geriatric Medicine; Visit Provider Family Medicine Geriatric Medicine
DX: G31.84 Mild cognitive impairment of uncertain or unknown etiology (principal); N39.0 Urinary tract infection, site not specified
CPT/HCPCS: 36415; 81002; 82607; 82746; 86780; 87086; 87088

== ENCOUNTER → 2023-06-08 | Outpatient (CLI) | payer MEDICARE, BC, SELFPAY ==
--- NOTE | 2023-06-11 08:53 | STRESSREP ---
Stress Test Report Date: 06/08/2023 Procedure: Pharmacologic stress nuclear imaging study Indications: Preoperative evaluation/history of CAD Consent: Per the patient Procedure: The patient underwent pharmacologic (Regadenoson 0.4mg ) evaluation with a peak heart rate of 81 beats per minute (59%predicted maximal heart rate) and a peak blood pressure of 146/96 mmHg. The baseline ECG demonstrated sinus rhythm with T wave changes suggestive of inferior lateral ischemia. Frequent PVCs. The peak pharmacologic ECG was nondiagnostic secondary to baseline abnormalities Frequent PVCs noted pretest and postinfusion. [There was no complaint of chest discomfort during pharmacologic infusion or recovery]. The patient was injected with 11 point millicuries of technetium 99m Cardiolite and subsequently rest SPECT Cardiolite nuclear imaging was obtained in the horizontal long, vertical long, and short axis views. The patient underwent pharmacologic (Regadenoson) evaluation. The patient was injected with 33.5 millicuries of technetium 99m Cardiolite and subsequently stress SPECT Cardiolite nuclear imaging was obtained in the horizontal long, vertical long, and short axis views. A gated Cardiolite study at peak stress was obtained. The examination was stopped secondary to completion of protocol. Rest and stress SPECT Cardiolite nuclear imaging status post realignment, normalization, and attenuation correction demonstrate a large predominantly lateral fixed defect extending into the inferior wall consistent with prior myocardial infarction. Inferior lateral hypokinesis on gated images. The reported LVEF is 42%. Impression: 1. Pharmacologic (Regadenoson) evaluation 2. Peak pharmacologic ECG nondiagnostic secondary to baseline abnormalities. 3. Frequent PVCs pretest, during pharmacological infusion and post infusion. 5. Large fixed lateral defect suggestive of previous myocardial infarction with no significant roberto-infarct ischemia. 6. The gated Cardiolite study reports an LVEF of 42%. This note was generated with [employer] software. It may contain incorrect words, spelling, and punctuation that were not noted in checking the note before signing.
== END | disposition home or self-care (01) ==
LOC: CVS 05:55
PROVIDERS: PCP Family Medicine Geriatric Medicine; Referring Provider Internal Medicine Cardiovascular Disease; Visit Provider Internal Medicine Cardiovascular Disease
DX: Z01.818 Encounter for other preprocedural examination (principal); I42.9 Cardiomyopathy, unspecified; I25.10 Atherosclerotic heart disease of native coronary artery without angina pectoris; I10 Essential (primary) hypertension; Z95.5 Presence of coronary angioplasty implant and graft
CPT/HCPCS: 78452; 93017; A9500; A4216; J2785

== ENCOUNTER 2023-06-12 05:29 | Inpatient (IN) | payer MEDICARE, BC, SELFPAY ==
--- NOTE | 2023-05-29 12:24 | VDLE_ITS ---
Reason For Study: Pre-Op bypass RIGHT LEFT GSV is normal. GSV is normal. GSV Prox Thigh - 0.32cm x 0.34cm GSV Prox Thigh - 0.36cm x 0.34cm GSV Mid Thigh - 0.30cm x 0.34cm GSV Mid Thigh - 0.38cm x 0.38cm GSV Dist Thigh - 0.37cm x 0.40cm GSV Dist Thigh - 0.43cm x 0.45cm GSV Knee - 0.34cm x 0.36cm GSV Knee - 0.43cm x 0.45cm GSV Prox Calf - 0.24cm x 0.25cm GSV Prox Calf - 0.38cm x 0.40cm GSV Mid Calf - 0.26cm x 0.28cm GSV Mid Calf - 0.31cm x 0.37cm GSV Dist Calf - 0.31cm x 0.32cm GSV Dist Calf - 0.35cm x 0.36cm SSV is compressible SSV is compressible SSV Prox Calf - 0.16cm x 0.15cm SSV Prox Calf - 0.18cm x 0.23cm SSV Mid Calf - 0.22cm x 0.25cm SSV Mid Calf - 0.21cm x 0.23cm SSV Dist Calf - 0.18cm x 0.20cm. SSV Dist Calf - 0.21cm x 0.27cm. Procedure This is a venous duplex using B-mode, color flow and spectral Doppler. Exam performed in department. The exam was diagnostic. VL/Saphenous Vein Mapping, Bilat Interpretation Summary Right great saphenous vein patent with measurements above Left great saphenous vein patent with measurements above Right small saphenous vein patent with measurements above Left small saphenous vein patent with measurements above Ordering Physician: Mitchel Khan Referring Physician: Enrike Dobbins Chi Performed By: Juan Mart RVT
--- NOTE | 2023-05-29 12:26 | EKG12_ITS ---
Test Reason : PRE OP Blood Pressure : / mmHG Vent. Rate : 061 BPM Atrial Rate : 061 BPM P-R Int : 146 ms QRS Dur : 122 ms QT Int : 502 ms P-R-T Axes : -01 009 136 degrees QTc Int : 505 ms Normal sinus rhythm Left ventricular hypertrophy with QRS widening T wave abnormality, consider lateral ischemia Abnormal ECG Confirmed by Deon Ortiz ([id number]), newspaper photo editor OXANA KEANE ([id number]) on 05/30/2023 6:37:04 AM Referred By: SARAY HUBBARD Confirmed By:Deon Ortiz
[2023-05-29 14:56] LABS: Hematocrit 45.3 % (37-47); Hemoglobin 14.5 g/dL (12.0-15.0); Mean Corpuscular Hgb 25.8 pg (27.0-32.0); Mean Corpuscular Volume 80.6 fL (81-99); Mean Platelet Vol. 9.9 fl (6.2-12.0); Platelet Count 290 K/mm3 (150-450); RBC Distribution Width CV 16.4 % (11.6-14.6); Red Blood Count 5.62 M/mm3 (4.2-5.4); White Blood Count 9.6 K/mm3 (4.4-11.0)
[2023-05-29 15:40] LABS: Anion Gap 7 (5-15); BUN 27 mg/dL (7-18); BUN/Creat Ratio 24.1 RATIO (10-20); Calcium,Total 9.2 mg/dL (8.5-10.1); Chloride 102 mmol/L (98-107); Creatinine, Serum 1.12 mg/dL (0.55-1.02); EST Glomerular Filtration Rate 49 mL/min (>60); Est Glom Filt Rate - Afr Amer 60 mL/min (>60); Glucose 100 mg/dL (74-106); Potassium 3.5 mmol/L (3.5-5.1); Sodium Level 137 mmol/L (136-145)
[2023-05-29 15:50] LABS: Thyroid Stim Hormone (TSH) 3.11 uIU/mL (0.358-3.74)
[2023-06-12] VITALS (24 sets, daily range): BP systolic 93–179; BP diastolic 48–95; PULSE 50–67; RESP 12–21; TEMP 36.1–36.4; O2SAT 95–100; BMI 20.2
[2023-06-12] MEDS: ALPRAZolam 0.25 MG Tablet PO (06:26)
[2023-06-12] MEDS: Lactated Ringers 1,000 ML 15 ML IV (06:42)
[2023-06-12] MEDS: Levothyroxine 25 MCG TABLET PO (06:42)
[2023-06-12] MEDS: Aspirin 81 MG TAB.CHEW PO (06:43)
[2023-06-12] MEDS: Metoprolol(XL)Succ 50 MG Tablet PO (06:43)
[2023-06-12] MEDS: Isosorbide Mononitrate 60 MG Tablet PO (06:43)
[2023-06-12] MEDS: amLODIPine 5 MG Tablet PO (06:43)
[2023-06-12] MEDS: Amiodarone 200 MG Tablet 100 MG PO (06:44)
--- NOTE | 2023-06-12 07:30 | ART_PTH ---
PATIENT: STANLEY RODRIGUEZ LOC: ICU U#:[id number] AGE/SX: 82/F ROOM: ICU03 RE06/12/[address]: Dr. Mitchel Khan MD : [id number] BED: 1 DIS: 06/15/2023 SPEC #: [id number] RECD: 06/12/23 12:24 STATUS: LINK REBurke #: [id number] ROSHNI: 06/12/23 07:[address]: Mitchel Khan DEPT: SURGICAL PATHOLOGY RECD BY: Cleo Espitia ENTERED: 06/13/23 08:55 SP TYPE: ARTERY OTHR DR: MD Dr. Benjamin Crane MD Dr. Tai Chi Kwok, MD Tissues: Artery, NOS Procedures: Surgery Specimen Level I HEADER OPERATION: Open repair, right carotid pseudoaneurysm with saphenous vein patch PRE-OP DIAGNOSIS: Aneurysm, carotid artery, internal TISSUE SUBMITTED: Right carotid pseudoaneurysm MICROSCOPIC DIAGNOSIS Right carotid pseudoaneurysm, repair: Fragments of blood vessel wall with numerous blood clots with focal area of organized blood clots, clinically pseudoaneurysm. / 06/14/2023 MICROSCOPIC DESCRIPTION Slides are reviewed. GROSS DESCRIPTION Received in fixative is one container labeled with the patient's name and designated Carotid pseudoaneurysm. The specimen consists of multiple irregular fragments of pink soft tissue mixed with blood clots that in aggregate measure 4.0 x 3.5 x 1.0 cm. The specimen is totally submitted in three cassettes. / 06/13/23 TC:5 CPT: 53187
--- NOTE | 2023-06-12 07:32 | HP.PCM_ITS ---
HPI - General General Date of Admission: 06/12/23 HPI Narrative STANLEY RODRIGUEZ, is a 82 F who presents with suspected right carotid bovine patch infection. She initially underwent CEA in 2021 and was doing well. Surveillance imaging in late 2022 suggested aneurysm at proximal extent of patch with significant thrombus. CTA obtained confirmed aneurysm with mural thrombus. Around same time as imaging she developed localized swelling over prior surgical site; this has been stable. She was found to have several teeth in poor condition and these have been extracted. [facility] Medical History (Updated 05/23/23 @ 15:56 by Summer Nelson) Abnormal stress test Acute gouty arthritis Aneurysm, carotid artery, internal Anxiety Arthritis Atherosclerotic heart disease of [place] coronary artery without angina pectoris Atrial fibrillation Back pain Back problem Bladder cancer Bladder disease Bladder tumor Cancer Cardiology follow-up encounter Carotid stenosis, right Carotid stenosis, right Cellulitis of right upper extremity Chest pain Chronic dental infection Difficulty chewing Erythrocytosis Essential hypertension Essential hypertension Former smoker GI bleed High cholesterol History of atrial fibrillation History of atrial fibrillation History of echocardiogram History of heart attack History of irregular heartbeat History of pacemaker History of stress test Hyperlipidemia Hypocalcemia Hypokalemia Hypothyroidism ICD (implantable cardioverter-defibrillator) discharge Ischemic cardiomyopathy Leukocytosis Long-term use of high-risk medication Loss of hearing Old myocardial infarction (~1997) Paroxysmal atrial fibrillation Polycythemia Polycythemia vera Preoperative cardiovascular examination Presence of cardiac defibrillator (~2005) Presence of stent in coronary artery (~10/02/17) Rash Right WRIST monoarticular arthritis Smoker Thyroid disease TIA (transient ischemic attack) Tobacco abuse Ventricular tachycardia Wears dentures Wears glasses Home Medications alprazolam 0.25 mg tablet 0.25 tab PO QHS PRN jaw pain 05/24/16 [History Last Taken 06/12/23] aspirin 81 mg tablet,delayed release 81 mg PO QHS heart health 05/24/16 [History Last Taken 06/12/23] potassium chloride 20 mEq oral packet 20 meq PO BID supplement 01/26/22 [History Last Taken 02/07/22] nitroglycerin 0.4 mg sublingual tablet 0.4 mg sublingual UD PRN Cardiac/Chest Pain #90 tabs 02/03/22 [Rx Last Taken Unknown] metoprolol succinate 50 mg tablet,extended release 24 hr 50 mg PO BID bp #180 tabs 05/11/22 [Rx Last Taken 06/11/23] Lipitor 40 mg tablet (atorvastatin) 40 mg PO QDAY cholesterol #90 tabs 08/22/22 [Rx Last Taken 06/11/23] amiodarone 200 mg tablet 100 mg (1/2 x 200 mg) PO DAILY heart #45 tabs 10/09/22 [Rx Last Taken 06/12/23] levothyroxine 25 mcg tablet 25 mcg PO DAILY HYPOTHYROID 10/16/22 [History Last Taken 06/12/23] Zestril 20 mg tablet (lisinopril) See Rx Instructions .Route .COMPLEX HLD #180 TABLETS 03/19/23 [Rx Last Taken 06/11/23] hydrochlorothiazide 25 mg tablet See Rx Instructions .Route .COMPLEX HYPERTENSION #90 TABLETS 04/24/23 [Rx Last Taken 06/11/23] isosorbide mononitrate 30 mg tablet,extended release 24 hr 60 mg (2 x 30 mg) PO DAILY heart #180 tabs 04/25/23 [Rx Last Taken 06/12/23] amlodipine 5 mg tablet 5 mg PO DAILY HEART 05/23/23 [History Last Taken 06/11] potassium chloride 20 mEq tablet,extended release(part/cryst) (Klor-Con M) 20 meq PO BID HYPOKALEMIA 05/23/23 [History Last Taken 06/11/23] Allergy/AdvReac Type Severity Reaction Status Date / Time doxazosin [From Cardura] AdvReac Severe Itching Verified 05/23/23 15:40 Influenza Virus Vaccines AdvReac Severe Other Verified 05/23/23 15:40 Family History Mother Heart disease Myocardial infarction Brother Cancer CAD (coronary artery disease) Brother CAD (coronary artery disease) Brother CAD (coronary artery disease) Surgical History (Updated 05/23/23 @ 15:56 by Summer Nelson) H/O cataract extraction History of back surgery History of back surgery History of bladder surgery History of cardiac catheterization History of carotid endarterectomy (~02/08/22) History of cataract extraction History of cholecystectomy History of implantable cardiac defibrillator (ICD) History of mandibular surgery History of mandibular surgery History of right-sided carotid endarterectomy Hx of cholecystectomy ICD SURGERY Presence of coronary angioplasty implant and graft (~10/02/17) Social History household members: none Smoking Status: Current some day smoker tobacco type: cigarettes how long ago did patient quit smokin years ago alcohol intake: current alcohol intake frequency: holidays/special occasions only Alcohol type: wine caffeine: Yes Type: coffee Number of servings: 4 ROS Constitutional Constitutional: Denies chills, fever(s), frequent falls, lethargy or weakness Eyes Eyes: Denies blind spots, change in vision or loss of vision ENT HEENT: Denies bleeding gums, hoarseness or sore throat Cardiovascular Cardiovascular: Denies abdominal pain, bluish discoloration of hand/feet, chest pain with activity, claudication, cold extremities, cyanosis, dyspnea on exertion, erythema on extremities, irregular heart rhythm, leg edema, leg ulcers, numbness in extremities or weakness in extremities Respiratory/Chest Respiratory/Chest: Denies cough, excessive phlegm production, shortness of breath at rest, shortness of breath with exertion or wheezing Gastrointestinal Gastrointestinal: Denies anorexia, change in stool character, constipation, diarrhea, melena or rectal bleeding Genitourinary Genitourinary: Denies dysuria or hematuria Musculoskeletal Musculoskeletal: Denies abnormal gait Integumentary Integumentary: Reports other Details: ; Denies erythema, non-healing lesions or wounds Neurologic Neurologic: Denies abnormal speech, focal weakness, headache(s), loss of vision, numbness, paresthesias or sensory deficit Hematologic/Lymphatic Hematologic/Lymphatic: Denies easy bleeding, easy bruising or lymphadenopathy Vital Signs Vital Signs Vital Signs: 06/12/23 06:32 06/12/23 06:32 06/12/23 06:43 Temperature 97.0 F L Temperature Source Temporal Pulse Rate 64 64 Respiratory Rate 18 Respiratory Pattern Normal Blood Pressure 134/67 H 134/67 H Blood Pressure Mean 89 Blood Pressure Source Monitor Blood Pressure Position Semi-Fowlers Blood Pressure Location Left Arm Pulse Ox 100 Oxygen Delivery Method Room Air Weight Weight: 103 lb 6.349 oz Body Mass Index (BMI) 20.2 Physical Exam Const alert, oriented x3, no apparent distress and healthy appearing General Appearance: cooperative; Negative for combative or lethargic Orientation / Consciousness: awake Exam Limitations: no limitations HEENT Head and Scalp: normocephalic and atraumatic Eyes EOMs intact bilaterally General Eye: normal appearance of both eyes Neck full ROM and thyroid normal General: trachea midline; Negative for tenderness Thyroid: thyroid normal Resp normal respiratory effort and no use of accessory muscles Effort and Inspection: Negative for labored, stridor or audible wheezes Cardio regular rate and regular rhythm Back/Spine Cervical Spine: cervical ROM normal Extremity full ROM, normal capillary refill and no clubbing, cyanosis or edema Skin no rashes or lesions noted and no wounds Neuro oriented x3, CN's II-XII intact bilaterally, no focal motor deficits and no sensory deficits noted Psych thought process normal, cooperative, affect normal, speech normal and activity/motor behavior normal Results Lab / Micro Data 05/29/23 13:43 05/29/23 13:43 Assessment & Plan Assessment/Plan (1) Aneurysm, carotid artery, internal: PLAN: -exploration with plans to repair; simple patch replacement with GSV vs interposition with GSV
[2023-06-12] MEDS: Cefazolin 2 GM in 0.9% Normal Saline (100mL Bag) 100 ML IV (07:42)
[2023-06-12] MEDS: Heparin 10,000 UNITS/10 ML Vial 10000 UNITS (08:23)
[2023-06-12] MEDS: AMPICILLIN OPERA.SITE (10:22)
[2023-06-12] MEDS: SULBACTAM OPERA.SITE (10:22)
[2023-06-12] MEDS: Heparin Injection (Vial) 5,000 UNIT/ML VIAL 5000 UNIT (10:25)
[2023-06-12] MEDS: Bupivacaine Mpf 0.5% 30 ML VIAL (11:47)
--- NOTE | 2023-06-12 11:50 | PCM.OPRPT ---
Report of Operation Date of Procedure: 06/12/23 Pre-Operative Diagnosis: right carotid patch pseudoaneurysm, suspected infection Post-Operative Diagnosis: same Surgery/Procedure Performed:: repair right carotid pseudoaneurysm with reversed GSV interposition bypass Description of Surgical Findings:: blow out of inferior 50% of lateral suture line Surgeon: Mitchel Khan Type of Anesthesia: General Special Medications: Unasyn irrigation Specimen's removed: patch/thrombus for culture Estimated Blood Loss (mL): 150 Description of Procedure: HPI: Patient is an 82-year-old female with prior right carotid endarterectomy with surveillance imaging that suggested pseudoaneurysm with thrombus. Follow-up CTA confirmed significant mural thrombus with hazy vessel wall appearance suggesting possible infection and thrombus. Patient does have history of poor dentition and after this finding she had multiple teeth pulled. She presents now for exploration with planned repair of pseudoaneurysm with autogenous vein. Description of procedure: Upon obtaining informed consent and verification correct patient procedure site patient was taken to the operating room where she was placed under general anesthesia. She was then positioned prepped and draped in usual sterile fashion and timeout performed. Oblique incision was made overlying the prior incision along the anterior border the sternocleidomastoid. Bovie electrocautery was dissect down through the subcutaneous tissue to the level of the platysma. The platysma was then divided and self-retaining retractors put in position. Further dissection was then carried down to the sternocleidomastoid which was dissected free along its anterior border and then retracted laterally. Sharp dissection was then used to dissect free the common carotid artery proximally inferior to the previous plane of dissection. Care was taken to identify and protect the vagus nerve and the right angle used to place a vessel loop around the proximal common carotid artery. Next dissection was carried distally with significant dense scarring and reaction around the carotid bulb and the proximal portion of the internal carotid artery. Dissection through this was very time consuming and meticulous adding approximately 1 hour of operative time justifying modifier 22. Dissection was continued distally on the internal carotid artery until relatively virgin plane was encountered and the hypoglossal nerve identified. The internal carotid arteries then dissected free distally circumferentially and a right angle was placed vessel loop. Finally sharp dissection used to dissect free the external carotid artery and a right angle used to place a vessel loop. Of note along the distal common carotid and proximal internal carotid artery along the lateral aspect where the patch had been secured there was significant staining suggestive of pseudoaneurysm deep to the scar tissue that we had not yet dissected out. Given the extent of what appeared to be disrupted we felt that the majority or entirety of the patch would need to be excised so skin incision was made over the left great saphenous vein in the proximal thigh and Bovie electrocautery was dissect down through the subcutaneous tissue. Sharp dissection used dissect free the saphenous vein proximal and distal with sidebranches ligated with silk ties and divided. After a sufficient length of vein had been dissected free a wet sponge was placed within the vein harvest wound and attention returned to the carotid. The patient was then heparinized and allowed to circulate for 3 minutes with subsequent heparin dosing based on ACT results. The vessels were then occluded first the internal followed by the common and the external carotid. Sharp dissection was then used to dissect into an anterior the pseudoaneurysm capsule with significant amount of thrombus encountered. This thrombus was extracted and sent for culture. Further dissection was utilized to mobilize the lateral aspect of the carotid and then Arias scissors used to extend the arteriotomy proximally to normal-appearing common carotid artery distally to the endpoint of the prior patch. A 14 [place] shunt was then placed first distally in the internal carotid artery then allowed to backbleed before placing approximately common carotid artery. The Doppler was then used to evaluate the shunt which was patent with low resistance signal. Again it was observed that the entirety of the inferior half of the lateral aspect of the patch was disrupted and that the pseudoaneurysm was quite large with significant suture line disruption. There is no gross purulence however there was still suspicion of infection and so the remainder of the patch that was excised and thrombus were also sent for culture. Portion of the vessel that were not involved in the suture line disruption and axillary appeared abnormal with significant ulceration and is felt that the entirety of the vessel was best to be replaced with interposition saphenous vein bypass. The distal aspect of the previously patch segment was then fully transected and the back wall mobilized. The proximal endpoint was tailored and T configuration with a backwall remaining. The saphenous vein was then ligated the proximal and distal extents of his mobilization and then divided. Then flushed with heparinized saline with sidebranches found to be secure. It was then oriented in reverse fashion and the back to the of the distal anastomosis initiated with 6-0 Prolene in a running fashion. Once the posterior 50% of the suture line was completed the vein was then pressurized and allowed to distend and elongate. The vein was then cut the length and beveled at a large branch confluence to match the proximal vessel size. The proximal anastomosis was then initiated on the posterior aspect with 6-0 Prolene in running fashion. After the posterior half of the suture line was completed the shunt was then withdrawn and the carotids flushed copiously and then reoccluded. The distal anastomosis was completed with a second 6-0 Prolene completing the anterior aspect of the anastomosis. After completing the suture line the proximal clamp was released allowing the vessel to flush into the new graft. The graft was then occluded at its midpoint with an atraumatic clamp and the proximal anastomosis was found to be hemostatic. Next the distal anastomosis anterior half was completed with an additional 6-0 Prolene suture. Prior to completing suture line the internal carotid arteries back flushed and the graft forward flushed. After completing suture line clamps removed and satisfactory stasis was noted. There is a palpable pulse throughout to the common carotid, the vein bypass, and the internal carotid artery. The vessels were interrogated Doppler and found to be patent with appropriate low resistance signal. The patient was then reversed with protamine and the incision inspected for hemostasis. There is generalized ooze from multiple surfaces but no focal point of hemorrhage. Floseal topical hemostatic was applied after which manual pressure was held and satisfactory stasis was noted. The wound was then irrigated with saline with concentrated Unasyn antibiotic. At this allowed to dwell for several minutes it was suctioned clear. 2 channel MARIBETH were then placed via separate stab incisions and placed adjacent to the carotid artery. The incision closed with 2-0 Vicryl, 3-0 Vicryl, 4 Monocryl and Dermabond for skin. The vein harvest site was closed with 2-0 Vicryl, 3-0 Vicryl, 4 Monocryl and Dermabond. At the conclusion the patient was awakened anesthesia moving all extremities to command with cranial nerves intact. She was then taken to recovery room with anticipated admission to the intensive care unit for hemodynamic monitoring.
[2023-06-12 12:10] LABS: ACT Activated Clotting Time 158 sec (74-137)
[2023-06-12 12:10] LABS: ACT Activated Clotting Time 228 sec (74-137)
[2023-06-12 12:10] LABS: ACT Activated Clotting Time 250 sec (74-137)
[2023-06-12 12:10] LABS: ACT Activated Clotting Time 244 sec (74-137)
--- NOTE | 2023-06-12 12:12 | SUR.PHASEI ---
CELL SAVER INFUSING ON PATIENT WHEN PATIENT ARRIVED FROM OR.
--- NOTE | 2023-06-12 12:14 | EKG12_ITS ---
Test Reason : POST-OP Blood Pressure : / mmHG Vent. Rate : 057 BPM Atrial Rate : 057 BPM P-R Int : 182 ms QRS Dur : 126 ms QT Int : 634 ms P-R-T Axes : 059 -31 084 degrees QTc Int : 617 ms Sinus bradycardia Left axis deviation Non-specific intra-ventricular conduction block Septal infarct , age undetermined Inferior infarct , age undetermined T wave abnormality, consider anterolateral ischemia Abnormal ECG When compared with ECG of 29-MAY-2023 12:40, QRS axis Shifted left T wave inversion more evident in Anterior leads QT has lengthened Confirmed by ROBY JOHNSON ([id number]), associate editor TIFF MERINO ([id number]) on 06/18/2023 9:28:28 AM Referred By: Mitchel Khan Confirmed By:ROBY JOHNSON
--- NOTE | 2023-06-12 13:08 | SUR.PHASEI ---
PATIENT HAS BEEN ABLE TO VERBALLY able to SAY E EVERY 15 MINUTE CHECK.
[2023-06-12 13:10] LABS: Troponin-I HS 9 pg/mL (3.0-54.0)
[2023-06-12] MEDS: Ampicillin/Sulbactam 3 GM in 0.9% Normal Saline (100mL MB+) 100 ML IV ×2 (13:16→21:07)
[2023-06-12] MEDS: 0.45% Normal Saline 1,000 ML 75 ML IV (14:23)
[2023-06-12] MEDS: Acetaminophen 500 MG Tablet 1000 MG PO ×2 (14:24→21:07)
[2023-06-12] MEDS: oxyCODONE 5 MG Tablet PO (14:28)
[2023-06-12] MEDS: hydrALAZINE 20 MG/ML Vial 10 MG IV (16:02)
[2023-06-12] MEDS: Potassium Chloride Oral Tablet 20 MEQ PO (17:54)
[2023-06-12] MEDS: Erythromycin Base 1 OPTH.TUBE 1 APPLIC OPHTHALMIC (21:06)
[2023-06-12] MEDS: Aspirin E.C. 81 MG Tablet PO (21:07)
[2023-06-13] VITALS (25 sets, daily range): BP systolic 108–187; BP diastolic 50–93; PULSE 48–84; RESP 13–22; TEMP 36.3–37.1; O2SAT 95–100; BMI 22.6
[2023-06-13] MEDS: 0.45% Normal Saline 1,000 ML 75 ML IV ×2 (03:43→17:54)
[2023-06-13 04:08] LABS: Absolute Lymphocyte Count 1.17 X10^3/uL (0.83-4.51); Absolute Neutrophil Count 8.1 X10^3/uL (2.0-7.7); Basophil# 0.03 X10^3/uL; Basophil% 0.3 % (0-1); Hematocrit 37.5 % (37-47); Lymphocyte # 1.17 X10^3/ul (0.83-4.51); Lymphocyte % 11.4 % (19-41); Mean Corpuscular Hgb 25.6 pg (27.0-32.0); Mean Platelet Vol. 10.2 fl (6.2-12.0); Monocyte# 0.87 X10^3/uL; Monocyte% 8.5 % (0-10); NRBC Flagged by Analyzer 0 % (0-5); Neutrophil # 8.11 X10^3/uL (2.7-7.7); Neutrophil % 79.4 % (47-70); Platelet Count 236 K/mm3 (150-450); RBC Distribution Width CV 15.9 % (11.6-14.6); RBC Distribution Width SD 45.7 fl (35.1-43.9); Red Blood Count 4.69 M/mm3 (4.2-5.4); White Blood Count 10.2 K/mm3 (4.4-11.0)
[2023-06-13 04:31] LABS: Anion Gap 4 (5-15); BUN 15 mg/dL (7-18); BUN/Creat Ratio 23.9 RATIO (10-20); Calcium,Total 7.1 mg/dL (8.5-10.1); Chloride 109 mmol/L (98-107); Creatinine, Serum 0.63 mg/dL (0.55-1.02); EST Glomerular Filtration Rate 96 mL/min (>60); Est Glom Filt Rate - Afr Amer 117 mL/min (>60); Estimated Creatinine Clearance 38.27 ml/min; Glucose 101 mg/dL (74-106); Potassium 3.5 mmol/L (3.5-5.1); Sodium Level 136 mmol/L (136-145)
[2023-06-13] MEDS: Acetaminophen 500 MG Tablet 1000 MG PO ×3 (05:17→21:11)
[2023-06-13] MEDS: Levothyroxine 25 MCG TABLET PO (05:17)
[2023-06-13] MEDS: Potassium Chloride Oral Tablet 20 MEQ PO ×2 (08:07→17:54)
[2023-06-13] MEDS: hydroCHLOROthiazide 25 MG Tablet PO (08:07)
[2023-06-13] MEDS: Amiodarone 200 MG Tablet 100 MG PO (08:07)
[2023-06-13] MEDS: Lisinopril 20 MG Tablet PO ×2 (08:07→21:12)
[2023-06-13] MEDS: Ampicillin/Sulbactam 3 GM in 0.9% Normal Saline (100mL MB+) 100 ML IV ×4 (08:32→23:08)
--- NOTE | 2023-06-13 09:40 | CASEMGMT ---
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 BEBO MILLER introduced self and role at [facility]. Pt voices understanding and consents to assessment at this time. Pt sitting up in bed in no distress at this time, eating breakfast. Pt is A/O at this time and answers all questions appropriately. Care providers, pharmacy, and demographics verified/updated at this time. PCP: Dr Dobbins Specialists: Dr Mclain surgeon, [facility]/cardiology Preferred Pharmacy:[facility] Insurance: Becky PIERRE Prescription Benefit: Yes Living Will/HPOA: Has both LW and HCPOA, who is her nephew, Kuldip LNOK: Nephew/POA, Kuldip. Niece, Liliam Living Arrangements: Lives alone in one-story home w/basement w/2 steps to enter. Laundry is in the basement w/railing on one side. Pt states does okay with the stairs. Independent w/ADL's and IADL's. 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 Pt states has good support, especially her nephew, Kuldip. She states he gets her groceries and brings many of her meals, and would be willing to assist w/anything she needs. Transportation: Pt states drives self and states no transportation concerns at this time. Kuldip will take pt home @ d/c. DME: Denies using any DME. She would like medical alert info. BEBO MILLER provided this to her at this time. HHC/SNF: No hx of either. Has had private-duty aides in the past and is interested in information on agencies ago. Pt provided w/list of Private Duty Agencies. Pt declines wanting/needing [facility] for nursing or therapy. Pt wishes to return home and states has no concerns with going home at time of discharge. CM to follow for any further discharge planning/needs. Pt voices no further concerns/needs at this time. Advised pt to ask for CM if any further questions/concerns/needs arise. Voices understanding. PLAN: Home [facility] BE[employer] MILLER
[2023-06-13] MEDS: amLODIPine 5 MG Tablet PO (10:46)
[2023-06-13] MEDS: Enoxaparin 40 MG/0.4 ML Syringe SC (10:46)
--- NOTE | 2023-06-13 13:23 | PN.SURG_ITS ---
Subjective Subjective Saima was seen resting comfortably in bed this morning and afternoon. She reports mild discomfort at the surgical site. She had some difficulty swallowing pills this morning but was able to chew and swallow breakfast/lunch without issue. She denies any headaches, vision changes, weakness, sensory deficits. No tongue deviation or hoarseness. No N/V, F/C. She is urinating without difficulty. Her BPs were elevated and HR low overnight. Her home BP meds were on hold. Zestril, HCTZ, and amlodipine were restarted today. BPs have improved. HR has been around 60 today. Objective Data Objective Data Vital Signs: Vital Signs Temp Pulse Resp BP Pulse Ox O2 Del Method 98.2 F 68 17 149/69 H 97 Room Air 06/13/23 09:00 06/13/23 10:00 06/13/23 10:00 06/13/23 10:00 06/13/23 12:33 06/13/23 12:33 Oxygen Delivery Method Room Air Weight: 115 lb 15.41 oz Body Mass Index (BMI) 22.6 Intake & Output: Intake and Output for Last 24 Hours 06/11/23 06/12/23 06/13/23 23:59 23:59 23:59 Intake Total 3749.75 / 3749.75 1112 / 1112 Output Total 1005 / 1005 770 / 770 Balance 2744.75 / 2744.75 342 / 342 Lab / Micro Data 06/13/23 04:00 06/13/23 04:00 Labs: Laboratory Results - last 24 hr 05/29/23 13:43: Crossmatch See Detail 06/13/23 04:00: WBC 10.2, RBC 4.69, Hgb 12.0, Hct 37.5, MCV 80.0 L, MCH 25.6 L, MCHC 32.0, RDW Std Deviation 45.7 H, RDW Coeff of Hood 15.9 H, Plt Count 236, MPV 10.2, Immature Gran % (Auto) 0.400, Neut % (Auto) 79.4 H, Lymph % (Auto) 11.4 L, Nicholas % (Auto) 8.5, Eos % (Auto) 0.0, Baso % (Auto) 0.3, Absolute Neuts (auto) 8.1 H, Absolute Lymphs (auto) 1.17, Nucleated RBC % 0, Sodium 136, Potassium 3.5, Chloride 109 H, Carbon Dioxide 23.0, Anion Gap 4 L, BUN 15, Creatinine 0.63, Estim Creat Clear Calc 38.27, Est GFR (MDRD) Af Amer 117, Est GFR (MDRD) Non-Af 96, BUN/Creatinine Ratio 23.9 H, Glucose 101, Calcium 7.1 L Micro: Microbiology 05/29/23 13:57 Swab (Method) Nasal Screen MRSA/MSSA - Final Physical Exam Const no apparent distress Constitutional Narrative: She is oriented x3 but does have some confusion HEENT normocephalic, head/scalp atraumatic, external ears normal and external nose normal Eyes EOMs intact bilaterally General Eye: normal appearance of both eyes Neck Neck Narrative: R neck incision site with surgical glue intact. No dehiscence, erythema, warmth. Minimal swelling and ecchymosis. MARIBETH drains with small amount of sanguineous output. Resp normal respiratory effort Cardio regular rate and regular rhythm Extremity normal to inspection and no clubbing, cyanosis or edema Skin no rashes or lesions noted Trauma: no lacerations or abrasions Neuro oriented x3, CN's II-XII intact bilaterally, moves all extremities, no focal motor deficits and no sensory deficits noted Speech: speech normal Assessment & Plan Assessment/Plan (1) Pseudoaneurysm of carotid artery: PLAN: Plan She is s/p R ICA pseudoaneurysm repair with reversed GSV interposition bypass. She had [address] following surgery. I removed the medial MARIBETH drain today without issue. Will plan to remove remaining MARIBETH drain tomorrow. Her amlodipine, HCTZ, and lisinopril have been restarted. Will continue to hold Imdur for now until pressures consistently equal or greater than 140 systolic. Appreciate ID input regarding antibiotic therapy.
[2023-06-13] MEDS: Erythromycin Base 1 OPTH.TUBE 1 APPLIC OPHTHALMIC ×2 (13:27→21:10)
--- NOTE | 2023-06-13 13:29 | PCM.CONS.GEN ---
Assessment & Plan Assessment/Plan (1) Pseudoaneurysm of carotid artery: PLAN: Suspected infection with possible dental source. Went to OR 06/12/[address] Khan for repair right carotid pseudoaneurysm with reversed GSV interposition bypass. Surgical samples are not in process in our system. Will check bcx x2, cont iv unasyn. Will follow, thank you HPI Consult Data Date of Consult: 06/13/23 HPI Narrative Reason for Consultation: suspected patch infection HPI Narrative: STANLEY RODRIGUEZ, is a 82 F with CAD, R CEA in 2021, presented with new swelling over R neck. Imaging showed thrombus and pseudoaneurysm. Also with dental pain, swelling, referred and had extraction done. Taken to OR 06/12/[address] Khan for I&D, removal of patch, and repair of pseudoaneurysm. Now in icu, on unasyn, feeling ok. No fever, pain controlled, no n/v/d. Full ROS performed and neg except as noted above. [facility] Medical History Abnormal stress test Acute gouty arthritis Aneurysm, carotid artery, internal Anxiety Arthritis Atherosclerotic heart disease of [place] coronary artery without angina pectoris Atrial fibrillation Back pain Back problem Bladder cancer Bladder disease Bladder tumor Cancer Cardiology follow-up encounter Carotid stenosis, right Carotid stenosis, right Cellulitis of right upper extremity Chest pain Chronic dental infection Difficulty chewing Erythrocytosis Essential hypertension Essential hypertension Former smoker GI bleed High cholesterol History of atrial fibrillation History of atrial fibrillation History of echocardiogram History of heart attack History of irregular heartbeat History of pacemaker History of stress test Hyperlipidemia Hypocalcemia Hypokalemia Hypothyroidism ICD (implantable cardioverter-defibrillator) discharge Ischemic cardiomyopathy Leukocytosis Long-term use of high-risk medication Loss of hearing Old myocardial infarction (~1997) Paroxysmal atrial fibrillation Polycythemia Polycythemia vera Preoperative cardiovascular examination Presence of cardiac defibrillator (~2005) Presence of stent in coronary artery (~10/02/17) Rash Right WRIST monoarticular arthritis Smoker Thyroid disease TIA (transient ischemic attack) Tobacco abuse Ventricular tachycardia Wears dentures Wears glasses Home Medications alprazolam 0.25 mg tablet 0.25 tab PO QHS PRN jaw pain 05/24/16 [History Last Taken 06/12/23] aspirin 81 mg tablet,delayed release 81 mg PO QHS heart health 05/24/16 [History Last Taken 06/12/23] potassium chloride 20 mEq oral packet 20 meq PO BID supplement 01/26/22 [History Last Taken 02/07/22] nitroglycerin 0.4 mg sublingual tablet 0.4 mg sublingual UD PRN Cardiac/Chest Pain #90 tabs 02/03/22 [Rx Last Taken Unknown] metoprolol succinate 50 mg tablet,extended release 24 hr 50 mg PO BID bp #180 tabs 05/11/22 [Rx Last Taken 06/11/23] Lipitor 40 mg tablet (atorvastatin) 40 mg PO QDAY cholesterol #90 tabs 08/22/22 [Rx Last Taken 06/11/23] amiodarone 200 mg tablet 100 mg (1/2 x 200 mg) PO DAILY heart #45 tabs 10/09/22 [Rx Last Taken 06/12/23] levothyroxine 25 mcg tablet 25 mcg PO DAILY HYPOTHYROID 10/16/22 [History Last Taken 06/12/23] Zestril 20 mg tablet (lisinopril) See Rx Instructions .Route .COMPLEX HLD #180 TABLETS 03/19/23 [Rx Last Taken 06/11/23] hydrochlorothiazide 25 mg tablet See Rx Instructions .Route .COMPLEX HYPERTENSION #90 TABLETS 04/24/23 [Rx Last Taken 06/11/23] isosorbide mononitrate 30 mg tablet,extended release 24 hr 60 mg (2 x 30 mg) PO DAILY heart #180 tabs 04/25/23 [Rx Last Taken 06/12/23] amlodipine 5 mg tablet 5 mg PO DAILY HEART 05/23/23 [History Last Taken 06/12/23] potassium chloride 20 mEq tablet,extended release(part/cryst) (Klor-Con M) 20 meq PO BID HYPOKALEMIA 05/23/23 [History Last Taken 06/11/23] Allergy/AdvReac Type Severity Reaction Status Date / Time doxazosin [From Cardura] AdvReac Severe Itching Verified 05/23/23 15:40 Influenza Virus Vaccines AdvReac Severe Other Verified 05/23/23 15:40 Family History Mother Heart disease Myocardial infarction Brother Cancer CAD (coronary artery disease) Brother CAD (coronary artery disease) Brother CAD (coronary artery disease) Surgical History (Updated 05/23/23 @ 15:56 by Summer Nelson) H/O cataract extraction History of back surgery History of back surgery History of bladder surgery History of cardiac catheterization History of carotid endarterectomy (~02/08/22) History of cataract extraction History of cholecystectomy History of implantable cardiac defibrillator (ICD) History of mandibular surgery History of mandibular surgery History of right-sided carotid endarterectomy Hx of cholecystectomy ICD SURGERY Presence of coronary angioplasty implant and graft (~10/02/17) Social History household members: none Smoking Status: Current some day smoker tobacco type: cigarettes how long ago did patient quit smokin years ago alcohol intake: current alcohol intake frequency: holidays/special occasions only Alcohol type: wine caffeine: Yes Type: coffee Number of servings: 4 Physical Exam Const alert, oriented x3 and no apparent distress General Appearance: cooperative HEENT normocephalic and head/scalp atraumatic Eyes PERRL and EOMs intact bilaterally Neck Neck Narrative: Redness over R neck with stain in place Resp normal air movement and clear to auscultation bilaterally Cardio regular rate and regular rhythm GI soft to palpation, non-tender and non-distended Extremity General Extremity: Negative for edema Skin Skin Narrative: no other rash Neuro CN's II-XII intact bilaterally Lab / Micro Data Attestation: I reviewed the patient's lab results. 06/13/23 04:00 06/13/23 04:00 Labs: Laboratory Results - last 24 hr 05/29/23 13:43: Crossmatch See Detail 06/13/23 04:00: WBC 10.2, RBC 4.69, Hgb 12.0, Hct 37.5, MCV 80.0 L, MCH 25.6 L, MCHC 32.0, RDW Std Deviation 45.7 H, RDW Coeff of Hood 15.9 H, Plt Count 236, MPV 10.2, Immature Gran % (Auto) 0.400, Neut % (Auto) 79.4 H, Lymph % (Auto) 11.4 L, Campbell % (Auto) 8.5, Eos % (Auto) 0.0, Baso % (Auto) 0.3, Absolute Neuts (auto) 8.1 H, Absolute Lymphs (auto) 1.17, Nucleated RBC % 0, Sodium 136, Potassium 3.5, Chloride 109 H, Carbon Dioxide 23.0, Anion Gap 4 L, BUN 15, Creatinine 0.63, Estim Creat Clear Calc 38.27, Est GFR (MDRD) Af Amer 117, Est GFR (MDRD) Non-Af 96, BUN/Creatinine Ratio 23.9 H, Glucose 101, Calcium 7.1 L
[2023-06-13] MEDS: Aspirin E.C. 81 MG Tablet PO (21:11)
[2023-06-14] VITALS (20 sets, daily range): BP systolic 109–162; BP diastolic 50–90; PULSE 54–74; RESP 14–24; TEMP 36.2–36.8; O2SAT 97–100; BMI 22.6
[2023-06-14] MEDS: Acetaminophen 500 MG Tablet 1000 MG PO ×3 (05:06→20:20)
[2023-06-14] MEDS: Ampicillin/Sulbactam 3 GM in 0.9% Normal Saline (100mL MB+) 100 ML IV ×3 (05:06→17:07)
[2023-06-14] MEDS: Erythromycin Base 1 OPTH.TUBE 1 APPLIC OPHTHALMIC (05:06)
[2023-06-14] MEDS: Levothyroxine 25 MCG TABLET PO (05:07)
[2023-06-14] MEDS: Amiodarone 200 MG Tablet 100 MG PO (09:28)
[2023-06-14] MEDS: Potassium Chloride Oral Tablet 20 MEQ PO ×2 (09:28→17:07)
[2023-06-14] MEDS: Isosorbide Mononitrate 30 MG Tablet 60 MG PO (09:29)
[2023-06-14] MEDS: Lisinopril 20 MG Tablet PO ×2 (09:29→20:19)
[2023-06-14] MEDS: hydroCHLOROthiazide 25 MG Tablet PO (09:29)
[2023-06-14] MEDS: amLODIPine 5 MG Tablet PO (09:29)
[2023-06-14] MEDS: Enoxaparin 40 MG/0.4 ML Syringe SC (09:30)
--- NOTE | 2023-06-14 10:24 | PCM.PN.ID ---
Physical Exam Narrative Feeling better, eating breakfast, no fever Const alert and no apparent distress General Appearance: cooperative Resp Auscultation: rhonchi Cardio regular rate and regular rhythm GI soft to palpation, non-tender and non-distended Skin Skin Narrative: R neck less red, drain in place ID ID: Route of nutrition/ use of supplements: [] Nutritional Intake: [] IV Site: [] Grant Catheter: [] Assessment & Plan Assessment/Plan (1) Pseudoaneurysm of carotid artery: PLAN: Suspected infection with possible dental source. Went to OR 06/12/[address] Khan for repair right carotid pseudoaneurysm with reversed GSV interposition bypass. Surgical samples are not in process in our system. Pending bcx x2, cont iv unasyn. Redness improved. Will follow
--- NOTE | 2023-06-14 10:41 | CASEMGMT ---
BEBO MILLER NOTE: Per JELANI Granda, pt's nephew is concerned about pt returning home and would like pt to go to [facility]CU, if possible. Therapy evals pending. CM or SW to f/u with pt and nephew once therapy evals completed. Rafal BSN BEBO CM
[2023-06-14] MEDS: 0.9% Saline Lock 10 ML Syringe IV ×2 (11:46→17:07)
--- NOTE | 2023-06-14 13:03 | PCM.PN.SRG ---
Subjective Subjective She was resting comfortably in bed this morning. She had finished her breakfast without issue. She continues to void without difficulty. She was up to the chair yesterday evening and reports that went well. She has not yet worked with PT/OT. She reports minimal discomfort at the surgical site. There has been minimal output from the remaining drain. The incision site has minimal swelling. She denies any NICOLE. Objective Data Objective Data Vital Signs: Vital Signs Temp Pulse Resp BP Pulse Ox O2 Del Method 97.2 F L 71 17 119/50 L 98 Room Air 06/14/23 12:00 06/14/23 12:00 06/14/23 12:00 06/14/23 12:00 06/14/23 12:00 06/14/23 12:00 Oxygen Delivery Method Room Air Weight: 115 lb 11.883 oz Body Mass Index (BMI) 22.6 Intake & Output: Intake and Output for Last 24 Hours 06/12/23 06/13/23 06/14/23 23:59 23:59 23:59 Intake Total 3749.75 / 3749.75 2448 / 2548 1784 / 1784 Output Total 1005 / 1005 2670 / 3670 3060 / 3060 Balance 2744.75 / 2744.75 -222 / -1122 -1276 / -1276 Lab / Micro Data 06/13/23 04:00 06/13/23 04:00 Micro: Microbiology 05/29/23 13:57 Swab (Method) Nasal Screen MRSA/MSSA - Final Physical Exam Const no apparent distress Constitutional Narrative: She is oriented x3 but does have some confusion HEENT normocephalic, head/scalp atraumatic, external ears normal and external nose normal Eyes EOMs intact bilaterally General Eye: normal appearance of both eyes Neck Neck Narrative: R neck incision site with surgical glue intact. No dehiscence, erythema, warmth. Minimal swelling and ecchymosis. MARIBETH drains with small amount of sanguineous output. Resp normal respiratory effort Cardio regular rate and regular rhythm Extremity normal to inspection and no clubbing, cyanosis or edema Skin no rashes or lesions noted Trauma: no lacerations or abrasions Neuro oriented x3, CN's II-XII intact bilaterally, moves all extremities, no focal motor deficits and no sensory deficits noted Speech: speech normal Assessment & Plan Assessment/Plan (1) Pseudoaneurysm of carotid artery: PLAN: Plan She is s/p R ICA pseudoaneurysm repair with reversed GSV interposition bypass. I removed the remaining MARIBETH drain today without issue. All home BP meds have been restarted and her BPs/HR have been stable. Blood cultures are still pending. Continuing with IV Unasyn for now. Her nephew has some concerns about her returning home immediately following discharge. Patient today also agreeable to go to TCU at discharge if possible. PT/OT evaluations are pending.
--- NOTE | 2023-06-14 13:41 | CASEMGMT ---
Addendum entered by Es Gibbs 06/14/23 16:14: Patient declined a list of longterm facilities as patient wants [facility] TCU. Es FRENCH Original Note: SW reviewed therapy notes and additional therapy is being recommended. SW was also informed patient and nephew are interested in TCU. SW met with patient. Introduced self and role at [facility]. Patient confirmed she would like to go to [facility]CU for short term rehab. SW will make referral. SW made referral to TCU. SW called patient's nephew Kuldip and left him a voice mail letting him know SW did talk with patient about TCU and that a referral was made to TCU. Plan: possible d/c to TCU pending acceptance. Es FRENCH
--- NOTE | 2023-06-14 14:43 | CASEMGMT ---
In order for patient to be accepted in TCU and ensure adherence to medication regimen patient will have to verify agreement in writing that she will agree to and understands she will be taking generic Lisinopril, Lipitor, and Toprol XL. SW will talk with patient's nephew and patient. Es FRENCH
--- NOTE | 2023-06-14 15:53 | CASEMGMT ---
SW met with patient. Patient remembered talking with SW earlier about TCU. SW explained to patient that in order for her to go to TCU , they would like to make sure she agrees to take the generic Lisinopril, Lipitor, and Toprol XL. Patient agreed to this and also signed the paper stating she agreed and understood. SW called patient's nephew and left him a voice mail letting him know this information. Plan: d/c to [facility]CU under skilled level of care. Es FRENCH
[2023-06-14] MEDS: Metoprolol(XL)Succ 50 MG Tablet PO (20:18)
[2023-06-14] MEDS: Aspirin E.C. 81 MG Tablet PO (20:18)
[2023-06-15] MEDS: Ampicillin/Sulbactam 3 GM in 0.9% Normal Saline (100mL MB+) 100 ML IV ×3 (00:18→11:31)
[2023-06-15 03:00] VITALS: BP 170/95; PULSE 58; RESP 16; TEMP 36.6; O2SAT 98
[2023-06-15] MEDS: Levothyroxine 25 MCG TABLET PO (05:13)
[2023-06-15] MEDS: Acetaminophen 500 MG Tablet 1000 MG PO (05:13)
[2023-06-15 07:37] VITALS: O2SAT 97
[2023-06-15] MEDS: hydroCHLOROthiazide 25 MG Tablet PO (08:24)
[2023-06-15] MEDS: Potassium Chloride Oral Tablet 20 MEQ PO (08:24)
[2023-06-15] MEDS: Atorvastatin Calcium 40 MG Tablet PO (08:24)
[2023-06-15] MEDS: Amiodarone 200 MG Tablet 100 MG PO (08:24)
[2023-06-15] MEDS: Isosorbide Mononitrate 30 MG Tablet 60 MG PO (08:24)
[2023-06-15] MEDS: Enoxaparin 40 MG/0.4 ML Syringe SC (08:25)
[2023-06-15] MEDS: amLODIPine 5 MG Tablet PO (08:25)
[2023-06-15] MEDS: Lisinopril 20 MG Tablet PO (08:25)
[2023-06-15 08:30] VITALS: BP 150/71; PULSE 50; RESP 20; TEMP 36.3; O2SAT 97
--- NOTE | 2023-06-15 10:28 | CASEMGMT ---
EMIGDIO notified PA that patient can be discharged to [facility]CU today. PA said patient will likely go today. Plan: d/c to [facility]CU under skilled level of care. Es FRENCH
[2023-06-15 11:15] VITALS: BP 89/58; PULSE 56
--- NOTE | 2023-06-15 11:50 | PCM.PN.ID ---
Physical Exam Narrative Drain removed yesterday, feeling better, no pain in neck, no fever Const alert and no apparent distress General Appearance: cooperative Resp normal air movement and clear to auscultation bilaterally Cardio regular rate and regular rhythm GI soft to palpation, non-tender and non-distended Extremity General Extremity: Negative for edema Skin Skin Narrative: drain out from neck, less red ID ID: Route of nutrition/ use of supplements: [] Nutritional Intake: [] IV Site: [] Grant Catheter: [] Assessment & Plan Assessment/Plan (1) Pseudoaneurysm of carotid artery: PLAN: Suspected infection with possible dental source. Went to OR 06/12/[address] Khan for repair right carotid pseudoaneurysm with reversed GSV interposition bypass. Surgical samples are not in process in our system. Neg bcx x2, cont iv unasyn. Redness improved. Plan on discharge with one week po augmentin 875mg bid. Will follow
--- NOTE | 2023-06-15 12:43 | PN.SURG_ITS ---
Subjective Subjective Patient was seen resting comfortably in bedside chair. She reports feeling tired but otherwise no complaints. She denies NICOLE. She reports she has been doing well with therapy. She is voiding without difficulty. Her pain is well controlled. Her blood cultures were negative. She remains without F/C or redness/swelling /drainage from the R neck incision. She has been accepted to TCU and remains agreeable to go there. Objective Data Objective Data Vital Signs: Vital Signs Temp Pulse Resp BP Pulse Ox O2 Del Method 97.4 F L 56 L 20 H 89/58 L 97 Room Air 06/15/23 08:30 06/15/23 11:15 06/15/23 08:30 06/15/23 11:15 06/15/23 08:30 06/15/23 08:30 Oxygen Delivery Method Room Air Weight: 115 lb 11.883 oz Body Mass Index (BMI) 22.6 Intake & Output: Intake and Output for Last 24 Hours 06/13/23 06/14/23 06/15/23 23:59 23:59 23:59 Intake Total 2448 / 2548 2376 / 2376 804 / 804 Output Total 2670 / 3670 3560 / 4185 2024 / 2024 Balance -222 / -1122 -1184 / -1809 -1221 / -1221 Lab / Micro Data 06/13/23 04:00 06/13/23 04:00 Micro: Microbiology 05/29/23 13:57 Swab (Method) Nasal Screen MRSA/MSSA - Final Physical Exam Const no apparent distress Constitutional Narrative: She is oriented x3 but does have some confusion HEENT normocephalic, head/scalp atraumatic, external ears normal and external nose normal Eyes EOMs intact bilaterally General Eye: normal appearance of both eyes Neck Neck Narrative: R neck incision site with surgical glue intact. No dehiscence, erythema, warmth. Minimal swelling and ecchymosis. Resp normal respiratory effort Cardio regular rate and regular rhythm Extremity normal to inspection and no clubbing, cyanosis or edema Extremity Narrative: L thigh incision site with surgical glue intact. No erythema, ecchymosis, warmth, drainage. Skin no rashes or lesions noted Trauma: no lacerations or abrasions Neuro oriented x3, CN's II-XII intact bilaterally, moves all extremities, no focal motor deficits and no sensory deficits noted Speech: speech normal Assessment & Plan Assessment/Plan (1) Pseudoaneurysm of carotid artery: PLAN: Plan She is s/p R ICA pseudoaneurysm repair with reversed GSV interposition bypass. R neck and L groin incisions with surgical glue intact and without signs of infection. She had low BP this morning after receiving her meds, it had improved an hour later to systolic 116 when I saw here. Blood cultures were negative. Dr. Peck recommended Augmentin 875mg BID x 1 week. She has been accepted to TCU. Will discharge this afternoon.
--- NOTE | 2023-06-15 12:58 | PCM.DC.SUM ---
Providers Date of Admission: 06/12/23 Primary Care Physician: Dr. Enrike Dobbins MD Consultations 06/12/23 15:37 Consult: Ophthamology Routine Consulting Provider: Benjamin Cleveland Reason for Consult: Eye pain EMERGENT Consult: No Notified: Yes Date Notified: 06/12/23 Time Notified: 15:38 Method of Notification: Answering Service 06/13/23 07:12 Consult: Infectious Disease Routine Consulting Provider: Gm Peck Reason for Consult: right carotid patch pseudoaneurysm, suspected infection EMERGENT Consult: No Notified: Yes Date Notified: 06/13/23 Time Notified: 08:20 Method of Notification: Answering Service Reason For Visit: open repair right carotid pseudoane Diagnosis Discharge Diagnosis (1) Pseudoaneurysm of carotid artery: Status: Acute Code(s): I72.0 - Aneurysm of carotid artery Plan She is s/p R ICA pseudoaneurysm repair with reversed GSV interposition bypass. R neck and L groin incisions with surgical glue intact and without signs of infection. She had low BP this morning after receiving her meds, it had improved an hour later to systolic 116 when I saw here. Blood cultures were negative. Dr. Peck recommended Augmentin 875mg BID x 1 week. She has been accepted to TCU. Will discharge this afternoon. Medications at Discharge Home Medications alprazolam 0.25 mg tablet 0.25 tab PO QHS PRN jaw pain 05/24/16 aspirin 81 mg tablet,delayed release 81 mg PO QHS heart health 05/24/16 nitroglycerin 0.4 mg sublingual tablet 0.4 mg sublingual UD PRN Cardiac/Chest Pain #90 tabs 02/03/22 metoprolol succinate 50 mg tablet,extended release 24 hr 50 mg PO BID bp #180 tabs 05/11/22 Lipitor 40 mg tablet (atorvastatin) 40 mg PO QDAY cholesterol #90 tabs 08/22/22 amiodarone 200 mg tablet 100 mg (1/2 x 200 mg) PO DAILY heart #45 tabs 10/09/22 levothyroxine 25 mcg tablet 25 mcg PO DAILY HYPOTHYROID 10/16/22 Zestril 20 mg tablet (lisinopril) See Rx Instructions .Route .COMPLEX HLD #180 TABLETS 03/19/23 hydrochlorothiazide 25 mg tablet See Rx Instructions .Route .COMPLEX HYPERTENSION #90 TABLETS 04/24/23 isosorbide mononitrate 30 mg tablet,extended release 24 hr 60 mg (2 x 30 mg) PO DAILY heart #180 tabs 04/25/23 amlodipine 5 mg tablet 5 mg PO DAILY HEART 05/23/23 potassium chloride 20 mEq tablet,extended release(part/cryst) (Klor-Con M) 20 meq PO BID HYPOKALEMIA 05/23/23 amoxicillin 875 mg-potassium clavulanate 125 mg tablet 1 tab PO BID 7 days #14 tabs 06/15/23 docusate sodium 100 mg capsule 100 mg PO BID PRN PRN Constipation #0 caps 06/15/23 oxycodone 5 mg tablet 5 mg PO Q6H PRN PRN Pain Score 4-10 5 days #20 tabs 06/15/23 Hospital Course Operations - (repair right carotid pseudoaneurysm with reversed GSV interposition bypass) Summary of Care Provided Hospital Course: Saima Hernandez is an 82 y/o female who underwent repair right carotid pseudoaneurysm with reversed GSV interposition bypass by on 06/12/23 secondary to right carotid patch pseudoaneurysm and infection. Intraoperative tissue/patch samples were taken but unfortunately mishandled by the lab so no cultures were able to be obtained. However, she did recently have dental infection identified and 4 dental extractions so the infection was felt to most likely be of dental origin. ID was consulted. Blood cultures were obtained which were fortunately negative. She was maintained on IV Unasyn throughout her admission and will discharge on Augment 8575mg PO BID for 7 days as per ID recommendations. The R neck incision site has been without signs/symptoms of infection since surgery. She has not had any F/C, N/V. She had 2 MARIBETH drains placed during surgery which were removed without issue. The R neck incision site and the L thigh GSV-harvest site are closed with surgical glue and are satisfactory in appearance and healing to this point. She has remained neurologically intact and hemodynamically stable following surgery. She has mild confusion/forgetfulness at her baseline. She has been tolerating a normal diet, voiding without difficulty, and her pain has been well controlled. She was evaluated by PT/OT who felt she could benefit from further therapy. Her nephew also had concerns about her returning directly to home following surgery. She was agreeable to TCU and was accepted there. She is medically stable for discharge to TCU today. Physical Exam Const no apparent distress Constitutional Narrative: She is oriented x3 but does have some confusion HEENT normocephalic, head/scalp atraumatic, external ears normal and external nose normal Eyes EOMs intact bilaterally General Eye: normal appearance of both eyes Neck Neck Narrative: R neck incision site with surgical glue intact. No dehiscence, erythema, warmth. Minimal swelling and ecchymosis. Resp normal respiratory effort Cardio regular rate and regular rhythm Extremity normal to inspection and no clubbing, cyanosis or edema Extremity Narrative: L thigh incision site with surgical glue intact. No erythema, ecchymosis, warmth, drainage. Skin no rashes or lesions noted Trauma: no lacerations or abrasions Neuro oriented x3, CN's II-XII intact bilaterally, moves all extremities, no focal motor deficits and no sensory deficits noted Speech: speech normal Weight / BMI Weight Weight: 115 lb 11.883 oz Body Mass Index (BMI) 22.6 ABG / Lab / Microbiology Data 06/13/23 04:00 06/13/23 04:00 Microbiology: Microbiology 05/29/23 13:57 Swab (Method) Nasal Screen MRSA/MSSA - Final D/C Instructions Discharge Diet: No restrictions May shower in (days): 1 Weight Bearing Status: Weight bearing as tolerated Lifting Restricted to (Lbs): 20 Lifting Restrictions: Do not lift greater than 20 pounds for 3 weeks Call your doctor if your incision/area has: Sudden Increased Bleeding, Foul Smelling Discharge and Swelling at the incision site Call your doctor if you observe: Fever of 101 or Higher and Uncontrolled pain Additional Instructions: You have a small bandage over the site from which the surgical drains were removed. You may remove this bandage tomorrow. As long as there is no residual drainage, you may leave this open to air. If you do notice some continued drainage, you may re-cover with a Band-Aid. Your incision sites (Right neck and L medial thigh) are covered with surgical glue which will continue to protect them. The surgical glue will peel/flake off on its own over the next few weeks. Please do not pick at it. You may shower tomorrow. It is okay for soap and water to rinse over the incision site, pat to dry. Do not submerge the incision site in water such as to take a bath or go swimming etc. for 3 weeks. Do not lift greater than 20 pounds for 3 weeks. Otherwise, please continue with activity as tolerated. Do not drive until you can turn your head well enough to safely check your blind spots. Follow-up in the office as scheduled on 06/28/23. If this appointment needs to be rescheduled or if there are any other questions please contact the office at [phone]. Please Follow Up With: Kalee Messer PA When: 06/28/23 Meaningful Use Info Meaningful Use Meaningful Use Diagnoses (Choose all that apply): None applicable Ischemic Stroke Statin Dosing Therapy Reference: STATIN DOSE THERAPY REFERENCE: * Patients > 75 years receive moderate or high dose statin therapy. * Patients 75 years or YOUNGER should receive HIGH intensity statin dose unless contraindicated. You will be required to document reason for non-treatment if statin daily dose does not meet guidelines. HIGH DOSE STATIN THERAPY DAILY Atorvastatin > than or = to 40 mg Rosuvastatin > than or = to 20 mg Amlodipine + Atorvastatin > than or = to 2.5/40 mg Ezetimibe + Simvastatin 10/80 mg Simvastatin 80mg Discharge Plan Admission Admit Date/Time: 06/12/23 05:29 Primary Reason for Your Visit: R carotid patch pseudoaneurysm repair with reversed GSV interposition bynegro Attending Provider: Mitchel Khan Primary Care Provider: Enrike Dobbins [employer] Providers: Benjamin Cleveland; Gm Peck Instructions Additional Instructions / Restrictions: You have a small bandage over the site from which the surgical drains were removed. You may remove this bandage tomorrow. As long as there is no residual drainage, you may leave this open to air. If you do notice some continued drainage, you may re-cover with a Band-Aid. Your incision sites (Right neck and L medial thigh) are covered with surgical glue which will continue to protect them. The surgical glue will peel/flake off on its own over the next few weeks. Please do not pick at it. You may shower tomorrow. It is okay for soap and water to rinse over the incision site, pat to dry. Do not submerge the incision site in water such as to take a bath or go swimming etc. for 3 weeks. Do not lift greater than 20 pounds for 3 weeks. Otherwise, please continue with activity as tolerated. Do not drive until you can turn your head well enough to safely check your blind spots. Follow-up in the office as scheduled on 06/28/23. If this appointment needs to be rescheduled or if there are any other questions please contact the office at [phone]. Discharge Orders/Prescriptions Prescriptions: New docusate sodium 100 mg Capsule 100 mg PO BID PRN PRN (Reason: Constipation) Qty: 0 0RF oxycodone 5 mg Tablet 5 mg PO Q6H PRN PRN (Reason: Pain Score 4-10) 5 Days Qty: 20 0RF amoxicillin-pot clavulanate 875-125 mg tablet 1 tab PO BID 7 Days Qty: 14 0RF Continued nitroglycerin 0.4 mg tablet, sublingual 0.4 mg SUBLINGUAL UD MDD Q5min prn PRN (Reason: Cardiac/Chest Pain) Qty: 90 6RF levothyroxine 25 mcg tablet 25 mcg PO DAILY aspirin 81 MG tablet,delayed release (DR/EC) 81 mg PO QHS alprazolam 0.25 MG tablet 0.25 tab PO QHS PRN (Reason: jaw pain) Patient Comments: for jaw, takes in the late evening potassium chloride [Klor-Con M20] 20 mEq tablet,ER particles/crystals 20 meq PO BID amlodipine 5 mg tablet 5 mg PO DAILY metoprolol succinate 50 mg tablet extended release 24 hr 50 mg PO BID Qty: 180 4RF Rx Instructions: MUST BE BRAND NAME MEDICATION atorvastatin [Lipitor] 40 mg tablet 40 mg PO QDAY Qty: 90 4RF Rx Instructions: Must be Brand Name, no generic. amiodarone 200 mg tablet 100 mg PO DAILY Qty: 45 3RF lisinopril [Zestril] 20 mg tablet See Rx Instructions .ROUTE .COMPLEX Qty: 180 3RF Dose Instruction: TAKE 1 TABLET BY MOUTH TWICE A DAY Rx Instructions: TAKE 1 TABLET BY MOUTH TWICE A DAY hydrochlorothiazide 25 mg tablet See Rx Instructions .ROUTE .COMPLEX Qty: 90 3RF Dose Instruction: TAKE 1 TAB BY MOUTH DAILY Rx Instructions: TAKE 1 TAB BY MOUTH DAILY isosorbide mononitrate 30 mg tablet extended release 24 hr 60 mg PO DAILY Qty: 180 3RF Rx Instructions: Must be white pill not red pill Discontinued potassium chloride 20 mEq Packet 20 meq PO BID Other Ambulatory Orders: 12 Lead EKG (Routine) Timeframe: [id number] Location: None Selected Ordered By: Dr. Jeff Gerber Referrals / Follow Up: Enrike Dobbins Chi, MD [Primary Care Provider] - Disposition Disposition (needs filled in before D/C Order can be placed): Assisted Facility
[2023-06-15 13:11] VITALS: BP 116/68; PULSE 56; RESP 15; TEMP 36.2; O2SAT 97
--- NOTE | 2023-06-15 13:16 | TREXTCAR_ITS ---
Diet Diet Order/Speech Therapy: 06/13/23 08:15 Diet: Regular - General Type of Dietary Supplement:: Ensure Compact Is pt able to select menu?: Yes Diet Comments: van ES compact w/ meals Routine Orders/Code Status Code Status: Full Code Wound(s) RIGHT SIDE OF NECK: Wound Type: Surgical Incision (closed with surgical glue, may remain open to air. Bandage over drain site may be removed tomorrow) LEFT GROIN: Wound Type: Surgical Incision (closed with surgical glue, may remain open to air) Left Buttock: Wound Type: Pressure Injury Therapies Physical Therapy: Eval and Treat Occupational Therapy: Eval and Treat Problem/Diagnosis (1) Pseudoaneurysm of carotid artery: Status: Acute Code(s): I72.0 - Aneurysm of carotid artery Plan She is s/p R ICA pseudoaneurysm repair with reversed GSV interposition bypass. R neck and L groin incisions with surgical glue intact and without signs of infection. She had low BP this morning after receiving her meds, it had improved an hour later to systolic 116 when I saw here. Blood cultures were negative. Dr. Peck recommended Augmentin 875mg BID x 1 week. She has been accepted to TCU. Will discharge this afternoon. Allergies/Procedures Done in Hospital Allergies doxazosin [From Cardura] Adverse Reaction (Severe, Verified 05/23/23 15:40) Itching Influenza Virus Vaccines Adverse Reaction (Severe, Verified 05/23/23 15:40) Other painful hands Type of Care/Length of Stay Estimated LOS: Convalescent Care Less Than 30 days Type of Care Needed: Skilled Rehab Potential: Good Prognosis: Good Additional Orders/Day of Discharge Day of Discharge: 06/15/23 Dietary and Speech Recommendations Dietitian Recommendations/Changes: Continue regular diet as tolerated, ES compact vanilla TID w/ meals. Monitor weights closely and reassess for possible malnutrition risk. Follow Up Care Please Follow Up With: Kalee Messer PA When: 06/28/2023 Discharge Plan Admission Admit Date/Time: 06/12/23 05:29 Primary Reason for Your Visit: R carotid patch pseudoaneurysm repair with reversed GSV interposition bynegro Attending Provider: Mitchel Khan Primary Care Provider: Enrike Dobbins [employer] Providers: Benjamin Cleveland; Gm Peck Instructions Additional Instructions / Restrictions: You have a small bandage over the site from which the surgical drains were removed. You may remove this bandage tomorrow. As long as there is no residual drainage, you may leave this open to air. If you do notice some continued drainage, you may re-cover with a Band-Aid. Your incision sites (Right neck and L medial thigh) are covered with surgical glue which will continue to protect them. The surgical glue will peel/flake off on its own over the next few weeks. Please do not pick at it. You may shower tomorrow. It is okay for soap and water to rinse over the incision site, pat to dry. Do not submerge the incision site in water such as to take a bath or go swimming etc. for 3 weeks. Do not lift greater than 20 pounds for 3 weeks. Otherwise, please continue with activity as tolerated. Do not drive until you can turn your head well enough to safely check your blind spots. Follow-up in the office as scheduled on 06/28/23. If this appointment needs to be rescheduled or if there are any other questions please contact the office at [phone]. Discharge Orders/Prescriptions Prescriptions: New docusate sodium 100 mg Capsule 100 mg PO BID PRN PRN (Reason: Constipation) Qty: 0 0RF oxycodone 5 mg Tablet 5 mg PO Q6H PRN PRN (Reason: Pain Score 4-10) 5 Days Qty: 20 0RF amoxicillin-pot clavulanate 875-125 mg tablet 1 tab PO BID 7 Days Qty: 14 0RF Continued nitroglycerin 0.4 mg tablet, sublingual 0.4 mg SUBLINGUAL UD MDD Q5min prn PRN (Reason: Cardiac/Chest Pain) Qty: 90 6RF levothyroxine 25 mcg tablet 25 mcg PO DAILY aspirin 81 MG tablet,delayed release (DR/EC) 81 mg PO QHS alprazolam 0.25 MG tablet 0.25 tab PO QHS PRN (Reason: jaw pain) Patient Comments: for jaw, takes in the late evening potassium chloride [Klor-Con M20] 20 mEq tablet,ER particles/crystals 20 meq PO BID amlodipine 5 mg tablet 5 mg PO DAILY metoprolol succinate 50 mg tablet extended release 24 hr 50 mg PO BID Qty: 180 4RF Rx Instructions: MUST BE BRAND NAME MEDICATION atorvastatin [Lipitor] 40 mg tablet 40 mg PO QDAY Qty: 90 4RF Rx Instructions: Must be Brand Name, no generic. amiodarone 200 mg tablet 100 mg PO DAILY Qty: 45 3RF lisinopril [Zestril] 20 mg tablet See Rx Instructions .ROUTE .COMPLEX Qty: 180 3RF Dose Instruction: TAKE 1 TABLET BY MOUTH TWICE A DAY Rx Instructions: TAKE 1 TABLET BY MOUTH TWICE A DAY hydrochlorothiazide 25 mg tablet See Rx Instructions .ROUTE .COMPLEX Qty: 90 3RF Dose Instruction: TAKE 1 TAB BY MOUTH DAILY Rx Instructions: TAKE 1 TAB BY MOUTH DAILY isosorbide mononitrate 30 mg tablet extended release 24 hr 60 mg PO DAILY Qty: 180 3RF Rx Instructions: Must be white pill not red pill Discontinued potassium chloride 20 mEq Packet 20 meq PO BID Other Ambulatory Orders: 12 Lead EKG (Routine) Timeframe: [id number] Location: None Selected Ordered By: Dr. Jeff Gerber Referrals / Follow Up: Enrike Dobbins Chi, MD [Primary Care Provider] - Disposition Disposition (needs filled in before D/C Order can be placed): [facility] Charges/Coding Visit Charges Inpatient E&M: 52149 Disch Hosp
--- NOTE | 2023-06-15 13:41 | NURSING ---
TCU unable to take report at this time, will call back
--- NOTE | 2023-06-15 14:47 | NURSING ---
Report given to Negin LAGUNAS in TCU, will call back when room is clean and ready for patient
--- NOTE | 2023-06-15 15:12 | CASEMGMT ---
Patient is ready for discharge to [facility] TCU. EMIGDIO notified Pat that patient will be coming today. EMIGDIO spoke with patient and she is aware she is being discharged today. EMIGDIO called patient's nephew Kuldip and left him a voice mail letting him know this information. Plan: d/c to [facility] TCU under skilled level of care. Es [facility]
== END 2023-06-15 15:30 | disposition skilled nursing facility (03) | DRG 253 ==
LOC: ACINP 05:30 → ICU 11:55
PROVIDERS: Anesthesiology; Admitting Provider Surgery Trauma Surgery; PCP Family Medicine Geriatric Medicine; Referring Provider Surgery Trauma Surgery; Visit Provider Surgery Trauma Surgery
PROC: 03WY07Z Revision of Autologous Tissue Substitute in Upper Artery, Open Approach (ICD-10-PCS; CPT 35301; principal; 2023-06-12 07:10)
DX: T81.718A Complication of other artery following a procedure, not elsewhere classified, initial encounter (principal); T85.79XA Infection and inflammatory reaction due to other internal prosthetic devices, implants and grafts, initial encounter; I67.1 Cerebral aneurysm, nonruptured; I10 Essential (primary) hypertension; E03.9 Hypothyroidism, unspecified; I25.5 Ischemic cardiomyopathy; I25.10 Atherosclerotic heart disease of native coronary artery without angina pectoris; F17.210 Nicotine dependence, cigarettes, uncomplicated; E78.00 Pure hypercholesterolemia, unspecified; K04.7 Periapical abscess without sinus; Z95.5 Presence of coronary angioplasty implant and graft; Z79.82 Long term (current) use of aspirin; Y71.2 Prosthetic and other implants, materials and accessory cardiovascular devices associated with adverse incidents; Z79.899 Other long term (current) drug therapy; Z79.890 Hormone replacement therapy; Z95.810 Presence of automatic (implantable) cardiac defibrillator
CPT/HCPCS: 36415; 80048; 84443; 84484; 85025; 85027; 85347; 86850; 86900; 86901; 86920; 86922; 87040; 87081; 88300; 93005; 93970; 94668; 97162; 97166; 97530; 97535; 97802; 97803; 99252; A4648; J7030; J7120; A4216; G0463; J0295; J2405

== ENCOUNTER 2023-06-15 15:43 | Inpatient (IN) | payer MEDICARE, BC, SELFPAY ==
[2023-06-15 16:13] VITALS: BP 95/51; PULSE 64; RESP 16; RESP 18; TEMP 35.6; O2SAT 94; BMI 22.6
[2023-06-15 16:16] VITALS: BMI 22.6
[2023-06-15] MEDS: Potassium Chloride Oral Tablet 20 MEQ PO (17:34)
--- NOTE | 2023-06-15 18:32 | HP.PCM_ITS ---
HPI - General General Date of Admission: 06/15/23 Date of Service: 06/15/23 Chief Complaint: Here for rehabilitation. HPI Narrative STANLEY RODRIGUEZ, is a 82 Female who presents with followin06/12/2023 Admit to [facility]. Suspected right carotid bovine patch infection. Right CEA 2022 surveillance imaging suggested aneurysm at proximal extent of patch with significant thrombus. CTA confirmed aneurysm with mural thrombus. Localized swelling over prior surgical site. Several infected teeth extracted recently. 06/12/2023 Dr. 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 06/13/2023 Minimal discomfort at surgical site. Difficulty swallowing pills, but eating okay. Blood pressure high overnight, now improved. MARIBETH drain removed, removed 2nd MARIBETH drain tomorrow. Restart Amlodipine, HCTZ, Lisinopril. 06/13/2023 Dr. Peck recommended IV Unasyn, blood cultures x 2. 06/14/2023 Redness improved. 06/14/2023 Ate breakfast, OOB to chair. Home blood pressure medication restarted. Unasyn IV, blood cultures pending. 06/15/2023 Blood cultures negative x 2, Continue Unasyn IV, Discharge on Augmentin twice daily x 1 week. 06/15/2023 Feeling tired. Accepted to TCU. Right neck, left groin incisions, clean, intact. Blood pressure low, now improved. 06/15/2023 Admit to TCU with debility, here for rehabilitation, strengthening, prior to discharge home. Resident has Alzheimer Disease, and is confused. She is also feisty. [facility] Medical History (Updated 06/15/23 @ 19:[address] Enrike Dobbins MD) Abnormal stress test Acute gouty arthritis Aneurysm, carotid artery, internal Anxiety Arthritis Atherosclerotic heart disease of [place] coronary artery without angina pectoris Atrial fibrillation Back pain Back problem Bladder cancer Bladder disease Bladder tumor Cancer Cardiology follow-up encounter Carotid stenosis, right Carotid stenosis, right Cellulitis of right upper extremity Chest pain Chronic dental infection Difficulty chewing Erythrocytosis Essential hypertension Essential hypertension Former smoker GI bleed High cholesterol History of atrial fibrillation History of atrial fibrillation History of echocardiogram History of heart attack History of irregular heartbeat History of pacemaker History of stress test Hyperlipidemia Hypocalcemia Hypokalemia Hypothyroidism ICD (implantable cardioverter-defibrillator) discharge Ischemic cardiomyopathy Leukocytosis Long-term use of high-risk medication Loss of hearing Old myocardial infarction (~1997) Paroxysmal atrial fibrillation Polycythemia Polycythemia vera Preoperative cardiovascular examination Presence of cardiac defibrillator (~2005) Presence of stent in coronary artery (~10/02/17) Rash Right WRIST monoarticular arthritis Smoker Thyroid disease TIA (transient ischemic attack) Tobacco abuse Ventricular tachycardia Wears dentures Wears glasses Home Medications alprazolam 0.25 mg tablet 0.25 tab PO QHS PRN jaw pain 05/24/16 [History Last Taken 06/12/23] aspirin 81 mg tablet,delayed release 81 mg PO QHS heart health 05/24/16 [History Last Taken 06/12/23] nitroglycerin 0.4 mg sublingual tablet 0.4 mg sublingual UD PRN Cardiac/Chest Pain #90 tabs 02/03/22 [Rx Last Taken Unknown] metoprolol succinate 50 mg tablet,extended release 24 hr 50 mg PO BID bp #180 tabs 05/11/22 [Rx Last Taken 06/11/23] Lipitor 40 mg tablet (atorvastatin) 40 mg PO QDAY cholesterol #90 tabs 08/22/22 [Rx Last Taken 06/11/23] amiodarone 200 mg tablet 100 mg (1/2 x 200 mg) PO DAILY heart #45 tabs 10/09/22 [Rx Last Taken 06/12/23] levothyroxine 25 mcg tablet 25 mcg PO DAILY HYPOTHYROID 10/16/22 [History Last Taken 06/12/23] Zestril 20 mg tablet (lisinopril) See Rx Instructions .Route .COMPLEX HLD #180 TABLETS 03/19/23 [Rx Last Taken 06/11/23] hydrochlorothiazide 25 mg tablet See Rx Instructions .Route .COMPLEX HYPERTENSION #90 TABLETS 04/24/23 [Rx Last Taken 06/11/23] isosorbide mononitrate 30 mg tablet,extended release 24 hr 60 mg (2 x 30 mg) PO DAILY heart #180 tabs 04/25/23 [Rx Last Taken 06/12/23] amlodipine 5 mg tablet 5 mg PO DAILY HEART 05/23/23 [History Last Taken 06/12/23] potassium chloride 20 mEq tablet,extended release(part/cryst) (Klor-Con M) 20 meq PO BID HYPOKALEMIA 05/23/23 [History Last Taken 06/11/23] amoxicillin 875 mg-potassium clavulanate 125 mg tablet 1 tab PO BID antibiotic 7 days #14 tabs 06/15/23 [Rx Last Taken Unknown] docusate sodium 100 mg capsule 100 mg PO BID PRN PRN Constipation #0 caps 06/15/23 [Rx Last Taken Unknown] oxycodone 5 mg tablet 5 mg PO Q6H PRN PRN Pain Score 4-10 5 days #20 tabs 06/15/23 [Rx Last Taken Unknown] Allergy/AdvReac Type Severity Reaction Status Date / Time doxazosin [From Cardura] AdvReac Severe Itching Verified 05/23/23 15:40 Influenza Virus Vaccines AdvReac Severe Other Verified 05/23/23 15:40 Family History Mother Heart disease Myocardial infarction Brother Cancer CAD (coronary artery disease) Brother CAD (coronary artery disease) Brother CAD (coronary artery disease) Surgical History H/O cataract extraction History of back surgery History of back surgery History of bladder surgery History of cardiac catheterization History of carotid endarterectomy (~02/08/22) History of cataract extraction History of cholecystectomy History of implantable cardiac defibrillator (ICD) History of mandibular surgery History of mandibular surgery History of right-sided carotid endarterectomy Hx of cholecystectomy ICD SURGERY Presence of coronary angioplasty implant and graft (~10/02/17) Social History household members: none Smoking Status: Current some day smoker tobacco type: cigarettes how long ago did patient quit smokin years ago alcohol intake: current alcohol intake frequency: holidays/special occasions only Alcohol type: wine caffeine: Yes Type: coffee Number of servings: 4 ROS Constitutional Constitutional: Denies chills, fever(s) or weight gain ENT HEENT: Denies headache(s), nasal congestion or nasal discharge Cardiovascular Cardiovascular: Denies chest pain or palpitations Respiratory/Chest Respiratory/Chest: Denies cough, excessive phlegm production or shortness of breath with exertion Gastrointestinal Gastrointestinal: Denies abdominal pain, nausea or vomiting Genitourinary Genitourinary: Denies dysuria Musculoskeletal Musculoskeletal: Denies joint pain or joint swelling Integumentary Integumentary: Denies rash or wounds Neurologic Neurologic: Denies focal weakness, numbness or tingling Psychiatric Psychiatric: Denies anxiety, auditory hallucinations, depression, homicidal ideation or suicidal ideation Vital Signs Vital Signs Vital Signs: 06/15/23 16:13 06/15/23 16:13 Temperature 96.1 F L Temperature Source Temporal Pulse Rate 64 Pulse Rhythm Regular Pulse Strength Normal (2+) Respiratory Rate 18 16 Respiratory Effort Normal Non-Labored Respiratory Depth Normal Respiratory Pattern Normal Blood Pressure 95/51 L Blood Pressure Mean 65 Blood Pressure Source Monitor Blood Pressure Position Sitting Blood Pressure Location Left Arm Pulse Ox 94 Oxygen Delivery Method Room Air Room Air Weight Weight: 50.848 kg Body Mass Index (BMI) 22.6 Physical Exam Const alert General Appearance: cooperative HEENT normocephalic Eyes PERRL and EOMs intact bilaterally Neck supple, no JVD and no carotid bruits Resp normal respiratory effort, normal air movement and clear to auscultation bilaterally Cardio regular rate and regular rhythm GI normal to inspection, nondistended, normoactive bowel sounds, non-tender and non-distended Extremity normal capillary refill General Extremity: Negative for edema Skin no rashes or lesions noted Skin Narrative: Right neck, left groin incisions clean, dry, intact. General Skin Exam: no breakdown Psych affect normal Appearance: appropriate Assessment & Plan Assessment/Plan (1) Debility: (2) Pseudoaneurysm of carotid artery: (3) Alzheimer disease: (4) Anxiety: (5) Benzodiazepine dependence: (6) Coronary artery disease: (7) Hyperlipidemia: QUALIFIERS: Hyperlipidemia type: unspecified Qualified Code(s): E78.5 - Hyperlipidemia, unspecified (8) Hypothyroidism: (9) Hypertension: (10) Hypokalemia: (11) Atrial fibrillation: QUALIFIERS: Atrial fibrillation type: paroxysmal Qualified Code(s): I48.0 - Paroxysmal atrial fibrillation (12) Tobacco abuse: PLAN: Plan 82 year old female with below past medical history hospitalized with right carotid pseudoaneurysm, infected bovine patch, underwent repair right carotid pseudoaneurysm with reversed GSV interposition bypass 06/12/[address] Khan, admitted to TCU with debility, here for rehabilitation, strengthening, prior to disposition determination. * Debility - PT/OT. * Pain - Tylenol 1000mg q6 prn pain (1-5), Oxycodone 5mg q4 prn pain (6-10). * Bowel - senna/colace 1 tablet bid, Ducolax 10mg pr daily prn. * Adult immunization - Administer pneumonia vaccine, covid vaccine, flu vaccine as appropriate. * DVT prophylaxis - Monitor. * Right carotid bovine patch infection - Augmentin 875mg bid thru 06/22/2023. * Anxiety - Xanax 0.25mg qhs prn, stable chronic detention use, GDR not recommended. * Atrial fibrillation - Metoprolol succinate 50mg bid, Amiodarone 100mg daily, Aspirin 81mg daily. * Coronary artery disease - Metoprolol succinate 50mg bid, Lisinopril 20mg bid, Imdur 60mg daily, NTG 0.4mg sl q5m prn. * Hyperlipidemia - Atorvastatin 40mg qhs. * Hypertension - Metoprolol succinate 50mg bid, Lisinopril 20mg bid, HCTZ 25mg daily. * Hypothyroidism - Levothyroxine 25mcg daily. * Hypokalemia - KCL 20meq bidcm. * Alzheimer Disease - Galantamine ER 8mg daily.
[2023-06-15 21:10] VITALS: BP 166/91; PULSE 65
[2023-06-15] MEDS: Amox/Clavulanate 875 MG Tablet PO (21:10)
[2023-06-15] MEDS: Aspirin E.C. 81 MG Tablet PO (21:10)
[2023-06-15] MEDS: Lisinopril 20 MG Tablet PO (21:10)
[2023-06-15] MEDS: Atorvastatin Calcium 40 MG Tablet PO (21:10)
[2023-06-15] MEDS: Metoprolol(XL)Succ 50 MG Tablet PO (21:10)
--- NOTE | 2023-06-15 21:30 | NURSING ---
Pt trying to get out of chair without staff help. Became very agitated at staff and and said this is the worse I have ever been treated. Also threatening to leave. Staff talked calmly to her and did not do anything to agitate. She eventually calmed down and is resting in bed.
[2023-06-16 05:25] LABS: Absolute Lymphocyte Count 2.05 X10^3/uL (0.83-4.51); Absolute Neutrophil Count 6.5 X10^3/uL (2.0-7.7); Basophil# 0.06 X10^3/uL; Basophil% 0.6 % (0-1); Eosinophil# 0.34 X10^3/uL; Eosinophils% 3.4 % (0-5); Hematocrit 39.5 % (37-47); Hemoglobin 12.5 g/dL (12.0-15.0); Lymphocyte # 2.05 X10^3/ul (0.83-4.51); Lymphocyte % 20.7 % (19-41); Mean Corp Hgb Conc 31.6 g/dL (32-36); Mean Corpuscular Hgb 25.3 pg (27.0-32.0); Mean Platelet Vol. 10.4 fl (6.2-12.0); Monocyte# 0.88 X10^3/uL; Monocyte% 8.9 % (0-10); NRBC Flagged by Analyzer 0 % (0-5); Neutrophil % 65.8 % (47-70); Platelet Count 271 K/mm3 (150-450); RBC Distribution Width CV 16.1 % (11.6-14.6); RBC Distribution Width SD 46.4 fl (35.1-43.9); Red Blood Count 4.94 M/mm3 (4.2-5.4); White Blood Count 9.9 K/mm3 (4.4-11.0)
[2023-06-16 05:44] LABS: Anion Gap 8 (5-15); BUN 12 mg/dL (7-18); BUN/Creat Ratio 20.3 RATIO (10-20); Calcium,Total 8.4 mg/dL (8.5-10.1); Chloride 104 mmol/L (98-107); Creatinine, Serum 0.59 mg/dL (0.55-1.02); EST Glomerular Filtration Rate 103 mL/min (>60); Est Glom Filt Rate - Afr Amer 125 mL/min (>60); Estimated Creatinine Clearance 38.27 ml/min; Glucose 94 mg/dL (74-106); Potassium 3.2 mmol/L (3.5-5.1); Sodium Level 136 mmol/L (136-145)
[2023-06-16] MEDS: Levothyroxine 25 MCG TABLET PO (06:17)
[2023-06-16 09:16] VITALS: BP 153/66; PULSE 57; RESP 18; TEMP 36.4; O2SAT 99
[2023-06-16] MEDS: Potassium Chloride Oral Tablet 20 MEQ PO ×2 (09:19→17:36)
[2023-06-16] MEDS: Amox/Clavulanate 875 MG Tablet PO ×2 (09:19→20:45)
[2023-06-16] MEDS: Isosorbide Mononitrate 30 MG Tablet 60 MG PO (09:19)
[2023-06-16] MEDS: hydroCHLOROthiazide 25 MG Tablet PO (09:20)
[2023-06-16] MEDS: Lisinopril 20 MG Tablet PO ×2 (09:20→20:44)
[2023-06-16] MEDS: Amiodarone 200 MG Tablet 100 MG PO (09:21)
[2023-06-16] MEDS: Galantamine Hydrobromide 4 MG Tablet PO ×2 (09:30→17:36)
[2023-06-16 10:40] VITALS: BP 144/71; PULSE 55; RESP 18
[2023-06-16] MEDS: Potassium Chloride Oral Tablet 20 MEQ 40 MEQ PO (11:12)
[2023-06-16] MEDS: Tuberculin,Purif.prot.deriv. 50 TU/ML Vial 0.1 ML ID (11:13)
[2023-06-16 11:14] VITALS: PULSE 55
[2023-06-16] MEDS: Metoprolol(XL)Succ 50 MG Tablet PO ×2 (11:14→20:44)
[2023-06-16 15:27] VITALS: BP 133/74; PULSE 55; RESP 16; TEMP 36.8; O2SAT 98
[2023-06-16 20:44] VITALS: BP 158/69; PULSE 55
[2023-06-16] MEDS: Aspirin E.C. 81 MG Tablet PO (20:44)
[2023-06-16] MEDS: Atorvastatin Calcium 40 MG Tablet PO (20:44)
[2023-06-17] MEDS: Levothyroxine 25 MCG TABLET PO (05:59)
[2023-06-17 07:08] LABS: Anion Gap 6 (5-15); BUN 17 mg/dL (7-18); BUN/Creat Ratio 25.6 RATIO (10-20); Calcium,Total 8.6 mg/dL (8.5-10.1); Chloride 104 mmol/L (98-107); Creatinine, Serum 0.66 mg/dL (0.55-1.02); EST Glomerular Filtration Rate 90 mL/min (>60); Est Glom Filt Rate - Afr Amer 109 mL/min (>60); Estimated Creatinine Clearance 38.27 ml/min; Glucose 97 mg/dL (74-106); Potassium 3.8 mmol/L (3.5-5.1); Sodium Level 134 mmol/L (136-145)
[2023-06-17 09:04] VITALS: BP 153/68; PULSE 54; RESP 17; TEMP 36.8; O2SAT 99
[2023-06-17] MEDS: Potassium Chloride Oral Tablet 20 MEQ PO ×2 (09:08→17:16)
[2023-06-17] MEDS: Galantamine Hydrobromide 4 MG Tablet PO ×2 (09:08→17:16)
[2023-06-17] MEDS: Amox/Clavulanate 875 MG Tablet PO ×2 (09:09→20:12)
[2023-06-17] MEDS: hydroCHLOROthiazide 25 MG Tablet PO (09:09)
[2023-06-17] MEDS: Amiodarone 200 MG Tablet 100 MG PO (09:09)
[2023-06-17 09:10] VITALS: PULSE 54
[2023-06-17] MEDS: Metoprolol(XL)Succ 50 MG Tablet PO ×2 (09:10→20:12)
[2023-06-17] MEDS: Isosorbide Mononitrate 30 MG Tablet 60 MG PO (09:10)
[2023-06-17] MEDS: Lisinopril 20 MG Tablet PO ×2 (09:11→20:13)
[2023-06-17 20:11] VITALS: BP 146/70; PULSE 55
[2023-06-17 20:12] VITALS: BP 146/70; PULSE 55
[2023-06-17] MEDS: Aspirin E.C. 81 MG Tablet PO (20:12)
[2023-06-17] MEDS: Atorvastatin Calcium 40 MG Tablet PO (20:13)
[2023-06-18] MEDS: Levothyroxine 25 MCG TABLET PO (06:04)
[2023-06-18] MEDS: Galantamine Hydrobromide 4 MG Tablet PO ×2 (09:32→16:50)
[2023-06-18] MEDS: Amox/Clavulanate 875 MG Tablet PO ×2 (09:32→22:00)
[2023-06-18] MEDS: Amiodarone 200 MG Tablet 100 MG PO (09:32)
[2023-06-18] MEDS: Lisinopril 20 MG Tablet PO ×2 (09:32→22:00)
[2023-06-18 09:33] VITALS: BP 143/66; PULSE 54
[2023-06-18] MEDS: hydroCHLOROthiazide 25 MG Tablet PO (09:33)
[2023-06-18] MEDS: Metoprolol(XL)Succ 50 MG Tablet PO ×2 (09:33→22:01)
[2023-06-18] MEDS: Isosorbide Mononitrate 30 MG Tablet 60 MG PO (09:33)
[2023-06-18] MEDS: Potassium Chloride Oral Tablet 20 MEQ PO ×2 (09:37→16:50)
[2023-06-18 09:49] VITALS: BP 143/66; PULSE 54
[2023-06-18 10:40] VITALS: PULSE 57; RESP 18; O2SAT 96
--- NOTE | 2023-06-18 10:59 | PCM.PN.DRR ---
Documented by User: Carmen Curtis 06/18/23 11:28 TCU RX Drug Regimen Review Subjective/Objective Subjective/Objective: Subjective: TCU Admission. 82 YOF hospitalized with right carotid pseudoaneurysm, infected bovine patch, underwent repair right carotid pseudoaneurysm with reversed GSV interposition bypass 06/12/[address] Khan. Admitted to TCU with debility for strengthening and rehabilitation. Objective: Allergies doxazosin [From Cardura] Adverse Reaction (Severe, Verified 05/23/23 15:40) Itching Influenza Virus Vaccines Adverse Reaction (Severe, Verified 05/23/23 15:40) Other painful hands Current Medications Generic Name Dose Route Start Last Admin Trade Name Freq PRN Reason Stop Dose Admin Acetaminophen 1,000 mg 06/15/23 19:17 Acetaminophen 500 Mg Tablet PO Q6H PRN PRN Pain Score 1-5 Alprazolam 0.25 mg 06/15/23 16:12 Alprazolam 0.25 Mg Tablet PO QHS PRN jaw pain Amiodarone HCl 100 mg 06/16/23 10:00 06/18/23 09:32 Amiodarone 200 Mg Tablet PO 100 mg DAILY HILARY Administration Amoxicillin/Clavulanate Potassium 875 mg 06/15/23 22:00 06/18/23 09:32 Amox/Clavulanate 875 Mg Tablet PO 06/22/23 22:01 875 mg BID HILARY Administration Aspirin 81 mg 06/15/23 22:00 06/17/23 20:12 Aspirin E.C. 81 Mg Tablet PO 81 mg QHS HILARY Administration Atorvastatin Calcium 40 mg 06/15/23 22:00 06/17/23 20:13 Atorvastatin Calcium 40 Mg Tablet PO 40 mg QHS HILARY Administration Bisacodyl 10 mg 06/15/23 19:17 Bisacodyl 10 Mg Suppository RC DAILY PRN Constipation Galantamine Hydrobromide 4 mg 06/16/23 08:00 06/18/23 09:32 Galantamine Hydrobromide 4 Mg Tablet PO 4 mg BIDCM [facility]ILARY Administration Hydrochlorothiazide 25 mg 06/16/23 10:00 06/18/23 09:33 Hydrochlorothiazide 25 Mg Tablet PO 25 mg DAILY HILARY Administration Protocol Isosorbide Mononitrate 60 mg 06/16/23 10:00 06/18/23 09:33 Isosorbide Mononitrate 30 Mg Tablet PO 60 mg DAILY [facility] Administration Protocol Levothyroxine Sodium 25 mcg 06/16/23 06:00 06/18/23 06:04 Levothyroxine 25 Mcg Tablet PO 25 mcg DAILY@0600 [facility] Administration Lisinopril 20 mg 06/15/23 22:00 06/18/23 09:32 Lisinopril 20 Mg Tablet PO 20 mg BID [facility] Administration Protocol Metoprolol Succinate 50 mg 06/15/23 22:00 06/18/23 09:33 Metoprolol(Xl)Succ 50 Mg Tablet PO 50 mg BID [facility] Administration Protocol Nitroglycerin 0.4 mg 06/15/23 19:12 Nitroglycerin (Inpatient Use) 0.4 Mg Tab.Subl SL Q5M PRN Cardiac/Chest Pain Oxycodone HCl 5 mg 06/15/23 19:18 Oxycodone 5 Mg Tablet PO Q4H PRN PRN Pain Score 6-10 or Pre PT/OT Potassium Chloride 20 meq 06/15/23 17:00 06/18/23 09:37 Potassium Chloride Oral Tablet 20 Meq PO 20 meq BIDCM [facility] Administration Senna/Docusate Sodium 1 tablet 06/15/23 22:00 06/18/23 09:31 Senna/Docusate Sodium 1 Tablet PO Not Given BID [facility] Tuberculin PPD 0.1 ml 06/23/23 10:00 Tuberculin,Purif.Prot.Deriv. 50 Tu/Ml Vial ID 06/23/23 10:01 X1 ONE Problem List (Updated 06/16/23 @ 00:42 by Background Daemon) Tobacco abuse (Acute) Atrial fibrillation (Acute) Hypokalemia (Acute) Hypertension (Chronic) Hypothyroidism (Acute) Benzodiazepine dependence (Acute) Anxiety (Acute) Alzheimer disease (Acute) Debility (Acute) Pseudoaneurysm of carotid artery (Acute) Coronary artery disease (Chronic) Hyperlipidemia (Chronic) Vital Signs Temp Pulse Resp BP Pulse Ox O2 Del Method 98.2 F 54 L 17 143/66 H 99 Room Air 06/17/23 09:04 06/18/23 09:49 06/17/23 09:04 06/18/23 09:49 06/17/23 09:04 06/17/23 12:38 Oxygen Delivery Method Room Air Weight: 50.848 kg Body Mass Index (BMI) 22.6 Sodium 134 mmol/L (136-145) L 06/17/23 06:27 Potassium 3.8 mmol/L (3.5-5.1) 06/17/23 06:27 Chloride 104 mmol/L (98-107) 06/17/23 06:27 Carbon Dioxide 24.0 mmol/L (21.0-32.0) 06/17/23 06:27 Anion Gap 6 (5-15) 06/17/23 06:27 BUN 17 mg/dL (7-18) 06/17/23 06:27 Creatinine 0.66 mg/dL (0.55-1.02) 06/17/23 06:27 Est GFR (MDRD) Af Amer 109 mL/min (>60) 06/17/23 06:27 Est GFR (MDRD) Non-Af 90 mL/min (>60) 06/17/23 06:27 BUN/Creatinine Ratio 25.6 RATIO (10-20) H 06/17/23 06:27 Glucose 97 mg/dL (74-106) 06/17/23 06:27 Assessment/Plan: 1. Pain: acetaminophen 1000mg PO Q6H PRN pain 1-5 and oxycodone 5mg PO Q4H PRN pain 6-10. Resident has not had any PRN doses. Please continue to monitor for increased pain and PRN usage. 2. Bowel: senna/docusate 1T PO BID and bisacodyl 10mg RC daily PRN constipation. Resident has refused all doses of senna/docusate. Please consider changing to PRN constipation. Thanks. No PRN doses of bisacodyl have been given. Please continue to monitor for constipation. Last documented bowel movement was 06/13. 3. Right carotid bovine patch infection: Augmentin 875mg PO BID thru 06/22/23. Please continue to monitor for S/S of infection, renal function and diarrhea. 4. Atrial fibrillation/CAD/hypertension: metoprolol succinate 50mg PO BID, amiodarone 100mg PO daily, lisinopril 20mg PO BID, isosorbide mononitrate 60mg PO daily, hydrochlorothiazide 25mg PO daily, aspirin 81mg PO daily and nitroglycerin 0.4mg SL Q5M PRN chest pain. Resident has not had any PRN does. Please continue to monitor BP (last 143/66), HR (last 54), potassium (last 3.8mmol/L), sodium (last 134mmol/L), swelling, chest pain, PRN usage, cough, SCr (last 0.66mg/dL), headaches, S/S of bleeding and hemoglobin (last 12.5g/dL). Please consider adding hold parameters for metoprolol succinate as the heart rate has been around 55 over the lat several readings. Thanks. 5. Hyperlipidemia: atorvastatin 40mg PO QHS. Please consider ordering a lipid panel (last 2018) if clinically appropriate. Thanks. Please continue to monitor LFTs (last 01/15/23) and muscle pain. 6. Hypothyroidism: levothyroxine 25mcg PO daily. Please continue to monitor TSH (last 05/29/23 WNL) and S/S of hypo/hyperthyroidism. 7. Alzheimer disease: galantamine ER 8mg PO daily. Please continue to monitor for GI symptoms and dementia. 8. Hypokalemia: potassium chloride 20mEq PO BIDCM. Please continue to monitor potassium. Assessment/Plan for indications treated with psychotropic medications: 1. Anxiety: alprazolam 0.25mg PO QHS PRN jaw pain. Please see physician note regarding GDR. No PRN doses so far. PRN reason is for jaw pain, please clarify is patient is using this for anxiety. Thanks. Please continue to monitor for S/S of anxiety and PRN usage. Medical chart and medication regimen reviewed. The following medication irregularities or issues were identified: 1. Senna/docusate 1T PO BID. Resident has refused all doses. Please consider changing to PRN constipation. Thanks. 2. Metoprolol succinate 25mg PO BID. Please consider adding hold parameters for metoprolol succinate as the heart rate has been around 55 over the last several readings. Thanks 3. Alprazolam 0.25mg PO QHS PRN jaw pain. PRN reason is for jaw pain, please clarify is patient is using this for anxiety. Thanks. Date Date of Note:: 06/18/23 Documented by User: Dr. Enrike Dobbins MD 06/18/23 12:02 TCU RX Drug Regimen Review Provider Comments Provider responsibility Provider Comments to Recommendations by Pharmacy: Agree
--- NOTE | 2023-06-18 11:55 | NURSING ---
Java Web Engineer Note; Activity Asset: Chantale Landaverde is independent in her choice of daily activities. She live at home alone and did everything for her self before being hospitalizes. Her Niece will visit with her and bring her items she may need along w/ [facility]. Saima will read, watch tv and work on word puzzles when not resting or w/ therapy. She welcomes visits from our e commerce analyst and therapy dog when available. Staff will remind her of weekly activities and respect her right to say no.
--- NOTE | 2023-06-18 15:28 | CASEMGMT ---
Social Work SW received notification that the patient is requesting to discharge to return home. SW met with patient and friend, James at bedside to address concerns regarding discharge. The patient informed SW that she would like to discharge because I am bored. Patient's friend encouraged patient to remain at TCU for continued therapy. SW reviewed benefits of remaining at TCU for strengthening and wound care support. Patient was agreeable to remain on TCU for care. SW inquired about patient activities. Patient informed SW that she has been watching TV, but she has not engaged with any activities. SW reviewed activities provided at TCU and went over the activities calendar. Patient expressed interest in BINGO. SW informed patient that the special education coordinator will be notified of interest in BINGO. SW discussed patient participation in therapy. Patient informed SW that she has participated in therapy today, 06/18/2023. Patient goal is to return home. Patient's wound was saturating dressing. SW notified patient's bedside RN of dressing change required. SW provided patient with BINGO card to play with visiting guest at bedside. SW informed patient that follow up will take place during care planning on 06/20/2023. MANOLO Laura
[2023-06-18 16:00] VITALS: BP 110/51; PULSE 55; RESP 16; TEMP 36.1; O2SAT 96
[2023-06-18] MEDS: Aspirin E.C. 81 MG Tablet PO (22:00)
[2023-06-18 22:01] VITALS: BP 125/58; PULSE 60
[2023-06-18] MEDS: Atorvastatin Calcium 40 MG Tablet PO (22:01)
[2023-06-18] MEDS: Menthol/Lanolin/Calamine/Znox 113 GM Tube 1 APPLIC TOPICAL (22:05)
[2023-06-19] MEDS: Levothyroxine 25 MCG TABLET PO (05:00)
[2023-06-19] MEDS: Potassium Chloride Oral Tablet 20 MEQ PO ×2 (08:08→17:32)
[2023-06-19] MEDS: Galantamine Hydrobromide 4 MG Tablet PO ×2 (08:08→17:32)
[2023-06-19] MEDS: Amox/Clavulanate 875 MG Tablet PO ×2 (08:08→21:46)
[2023-06-19] MEDS: hydroCHLOROthiazide 25 MG Tablet PO (08:08)
[2023-06-19] MEDS: Amiodarone 200 MG Tablet 100 MG PO (08:08)
[2023-06-19] MEDS: Menthol/Lanolin/Calamine/Znox 113 GM Tube 1 APPLIC TOPICAL ×2 (08:08→21:43)
[2023-06-19 08:09] VITALS: BP 137/53; PULSE 53
[2023-06-19] MEDS: Lisinopril 20 MG Tablet PO ×2 (08:09→21:46)
[2023-06-19] MEDS: Metoprolol(XL)Succ 50 MG Tablet PO ×2 (08:09→21:46)
[2023-06-19] MEDS: Isosorbide Mononitrate 30 MG Tablet 60 MG PO (08:09)
--- NOTE | 2023-06-19 08:24 | NURSING ---
Updated by Jeffrey ARCHER that patient decided against getting covid vaccine at this time. Order dc'd. She has VIS and will let nursing know if she changes her mind.
[2023-06-19 10:15] VITALS: BMI 22.7
[2023-06-19 13:54] VITALS: BP 101/49; PULSE 50; RESP 14; TEMP 36.1; O2SAT 98
[2023-06-19 21:46] VITALS: BP 153/68; PULSE 60
[2023-06-19] MEDS: Atorvastatin Calcium 40 MG Tablet PO (21:46)
[2023-06-19] MEDS: Aspirin E.C. 81 MG Tablet PO (21:46)
[2023-06-20] MEDS: Levothyroxine 25 MCG TABLET PO (05:00)
[2023-06-20] MEDS: Potassium Chloride Oral Tablet 20 MEQ PO ×2 (09:02→17:42)
[2023-06-20] MEDS: Amiodarone 200 MG Tablet 100 MG PO (09:02)
[2023-06-20] MEDS: Amox/Clavulanate 875 MG Tablet PO ×2 (09:02→21:54)
[2023-06-20] MEDS: Galantamine Hydrobromide 4 MG Tablet PO ×2 (09:02→17:43)
[2023-06-20] MEDS: Isosorbide Mononitrate 30 MG Tablet 60 MG PO (09:03)
[2023-06-20] MEDS: hydroCHLOROthiazide 25 MG Tablet PO (09:03)
[2023-06-20] MEDS: Lisinopril 20 MG Tablet PO ×2 (09:04→21:54)
[2023-06-20 09:05] VITALS: BP 137/64; PULSE 52
[2023-06-20] MEDS: Metoprolol(XL)Succ 50 MG Tablet PO ×2 (09:05→21:54)
[2023-06-20] MEDS: Menthol/Lanolin/Calamine/Znox 113 GM Tube 1 APPLIC TOPICAL ×2 (09:08→21:56)
--- NOTE | 2023-06-20 10:46 | CASEMGMT ---
Social Work IDT met with patient at bedside and nephKuldip cobb via phone to complete care plans. Discussed patient progress with therapy (PT/OT/ST), dietary, activities, and nursing. Patient is progressing with therapy, but requires additional support for safety awareness while ambulating and transferring. Patient informed IDT that she would like to discharge home. SW educated patient and nephew of Medicare insurance benefits and coverage; first 20 days 100% covered and co-pay of 204/day after. The patient prefers to discharge prior to co-pay days. Patient goal is to return home with assistance. Patient informed SW that she will contact nephew and niece for support as needed. SW recommended additional in home support from family for additional supervision and care. Patient would like home health care, if recommended. SW will continue to follow to assist with discharge planning. MANOLO Laura.
[2023-06-20 12:01] VITALS: BP 118/53; PULSE 58; RESP 18; TEMP 36.1; O2SAT 97
--- NOTE | 2023-06-20 15:25 | CASEMGMT ---
Addendum entered by Danni Balderas 06/20/23 15:50: Correction: BIM Original Note: Social Work SW met with patient at bedside to complete initial intake assessment. SW introduced self and role on TCU. Patient verified demographics and contact information. Patient confirmed code status as full code. Patient confirmed advanced directive has nephewKuldip assigned as POA. Patient has copy of advance directive in medical chart. Patient informed SW that she resides home alone. Patient does not utilize DME in home for ambulation support. Patient informed SW that her goal is to return home with support, if recommended. Patient informed SW that she will contact niece and nephew, if assistance is required in the home. SW discussed home health care support for in home therapy and nursing. Patient would like further details. SW educated patient of her Medicare benefits and coverage. Patient was informed that her Medicare covers 100% of first 20 days; co-pay days 204/day. Patient goal is to discharge prior to Medicare co-pay days. BIM 02/09 SW will continue to follow for discharge planning. MANOLO Laura
--- NOTE | 2023-06-20 16:20 | CHAPLAIN ---
Type of Pastoral Visit _x__ Initial Visit ___ Follow-up Visit ___ On-call Visit ___ General Patient Visit ___ Spiritual Assessment ___ Family Conference ___ Bereavement ___ Rapid Response ___ Code Blue ___ Other (describe below) Pastoral Care Referral From _x__ Patient ___ Family ___ Nurse ___ Physician ___ Clinical Resource Coordinator ___ Diesel Engine Ii Pipe Fitter ___ Other (describe below) Sacrament/Intervention _x__ Active listening ___ Anointing ___ Baptist ___ Bereavement ___ Communion _x__ Bessy exploration ___ _x__ Life review _x__ Prayer ___ Reconciliation ___ Sacrament of Sick _x__ Supportive presence ___ Wedding ___ Other (describe below) Pastoral Comments patient is welcoming and talkative about life, her who early, and her connections to bessy and the hindu; pt shows humor as well as an ability to be honest and forthright about her frustrations at getting older and more limited; pt also admits not understanding all of what has happened to her; validation of feelings and support through presence and prayer given
[2023-06-20 20:20] VITALS: PULSE 62; O2SAT 96
[2023-06-20 21:54] VITALS: BP 160/80; PULSE 62
[2023-06-20] MEDS: Atorvastatin Calcium 40 MG Tablet PO (21:54)
[2023-06-20] MEDS: Aspirin E.C. 81 MG Tablet PO (21:54)
[2023-06-20 21:55] VITALS: BP 160/80
[2023-06-21] MEDS: Levothyroxine 25 MCG TABLET PO (05:34)
[2023-06-21 05:35] VITALS: BP 161/74; PULSE 60
[2023-06-21 05:45] VITALS: O2SAT 96
[2023-06-21] MEDS: Menthol/Lanolin/Calamine/Znox 113 GM Tube 1 APPLIC TOPICAL ×2 (10:36→21:58)
[2023-06-21] MEDS: Galantamine Hydrobromide 4 MG Tablet PO ×2 (10:38→16:50)
[2023-06-21] MEDS: Potassium Chloride Oral Tablet 20 MEQ PO ×2 (10:38→16:50)
[2023-06-21] MEDS: Amox/Clavulanate 875 MG Tablet PO ×2 (10:38→21:55)
[2023-06-21] MEDS: Amiodarone 200 MG Tablet 100 MG PO (10:39)
[2023-06-21 10:41] VITALS: BP 109/53; PULSE 56
[2023-06-21] MEDS: Isosorbide Mononitrate 30 MG Tablet 60 MG PO (10:41)
[2023-06-21] MEDS: Losartan Potassium 100 MG Tablet PO (10:41)
[2023-06-21] MEDS: hydroCHLOROthiazide 25 MG Tablet PO (10:41)
[2023-06-21] MEDS: Metoprolol(XL)Succ 50 MG Tablet PO ×2 (10:41→21:56)
[2023-06-21 10:50] VITALS: BP 109/53; PULSE 56
[2023-06-21 15:17] VITALS: BP 137/71; PULSE 49; RESP 16; TEMP 36.2; O2SAT 98
[2023-06-21] MEDS: Aspirin E.C. 81 MG Tablet PO (21:55)
[2023-06-21 21:56] VITALS: PULSE 60
[2023-06-21] MEDS: Atorvastatin Calcium 40 MG Tablet PO (21:56)
[2023-06-22] MEDS: Levothyroxine 25 MCG TABLET PO (05:44)
[2023-06-22 05:49] LABS: Absolute Lymphocyte Count 2.23 X10^3/uL (0.83-4.51); Absolute Neutrophil Count 6.1 X10^3/uL (2.0-7.7); Basophil# 0.03 X10^3/uL; Basophil% 0.3 % (0-1); Eosinophil# 0.54 X10^3/uL; Eosinophils% 5.3 % (0-5); Hematocrit 39.9 % (37-47); Hemoglobin 12.8 g/dL (12.0-15.0); Lymphocyte # 2.23 X10^3/ul (0.83-4.51); Mean Corp Hgb Conc 32.1 g/dL (32-36); Mean Corpuscular Hgb 26.1 pg (27.0-32.0); Mean Corpuscular Volume 81.3 fL (81-99); Mean Platelet Vol. 9.6 fl (6.2-12.0); Monocyte# 1.11 X10^3/uL; NRBC Flagged by Analyzer 0 % (0-5); Neutrophil # 6.13 X10^3/uL (2.7-7.7); Neutrophil % 60.5 % (47-70); Platelet Count 356 K/mm3 (150-450); RBC Distribution Width CV 16.8 % (11.6-14.6); RBC Distribution Width SD 49.1 fl (35.1-43.9); Red Blood Count 4.91 M/mm3 (4.2-5.4); White Blood Count 10.1 K/mm3 (4.4-11.0)
[2023-06-22 06:28] LABS: Anion Gap 6 (5-15); BUN 15 mg/dL (7-18); BUN/Creat Ratio 18.5 RATIO (10-20); Calcium,Total 8.7 mg/dL (8.5-10.1); Chloride 104 mmol/L (98-107); Creatinine, Serum 0.81 mg/dL (0.55-1.02); EST Glomerular Filtration Rate 72 mL/min (>60); Est Glom Filt Rate - Afr Amer 87 mL/min (>60); Glucose 86 mg/dL (74-106); Potassium 3.7 mmol/L (3.5-5.1); Sodium Level 137 mmol/L (136-145)
[2023-06-22] MEDS: Potassium Chloride Oral Tablet 20 MEQ PO ×2 (08:46→17:04)
[2023-06-22] MEDS: Galantamine Hydrobromide 4 MG Tablet PO ×2 (08:46→17:04)
[2023-06-22 08:47] VITALS: BP 170/62; PULSE 51
[2023-06-22] MEDS: Losartan Potassium 100 MG Tablet PO (08:47)
[2023-06-22] MEDS: Metoprolol(XL)Succ 50 MG Tablet PO ×2 (08:47→22:57)
[2023-06-22] MEDS: Amiodarone 200 MG Tablet 100 MG PO (08:47)
[2023-06-22] MEDS: Amox/Clavulanate 875 MG Tablet PO ×2 (08:47→22:55)
[2023-06-22] MEDS: hydroCHLOROthiazide 25 MG Tablet PO (08:48)
[2023-06-22] MEDS: Menthol/Lanolin/Calamine/Znox 113 GM Tube 1 APPLIC TOPICAL ×2 (08:51→22:55)
--- NOTE | 2023-06-22 09:22 | NURSING ---
Stone Rougher Note; MDS for 06/22/2023 Complete
[2023-06-22] MEDS: Isosorbide Mononitrate 30 MG Tablet 60 MG PO (09:34)
--- NOTE | 2023-06-22 16:42 | CASEMGMT ---
Social Work SW met with patient to complete MDS. Patient completed BIM (12/10) and PHQ-2 () MANOLO Laura
[2023-06-22 22:45] VITALS: BP 108/45; PULSE 55; RESP 17; TEMP 36.4; O2SAT 96
[2023-06-22] MEDS: Aspirin E.C. 81 MG Tablet PO (22:54)
[2023-06-22] MEDS: Atorvastatin Calcium 40 MG Tablet PO (22:55)
[2023-06-22 22:57] VITALS: BP 108/45; PULSE 55
[2023-06-23] MEDS: Levothyroxine 25 MCG TABLET PO (05:25)
[2023-06-23 09:27] VITALS: BP 153/67; PULSE 50; RESP 18; TEMP 36.2; O2SAT 98
[2023-06-23 09:30] VITALS: PULSE 50
[2023-06-23] MEDS: Metoprolol(XL)Succ 50 MG Tablet PO ×2 (09:30→21:50)
[2023-06-23] MEDS: Potassium Chloride Oral Tablet 20 MEQ PO ×2 (09:30→17:30)
[2023-06-23] MEDS: Galantamine Hydrobromide 4 MG Tablet PO ×2 (09:31→17:29)
[2023-06-23] MEDS: hydroCHLOROthiazide 25 MG Tablet PO (09:31)
[2023-06-23] MEDS: Losartan Potassium 100 MG Tablet PO (09:31)
[2023-06-23] MEDS: Isosorbide Mononitrate 30 MG Tablet 60 MG PO (09:31)
[2023-06-23] MEDS: Amiodarone 200 MG Tablet 100 MG PO (09:32)
[2023-06-23] MEDS: Tuberculin,Purif.prot.deriv. 50 TU/ML Vial 0.1 ML ID (12:09)
[2023-06-23] MEDS: Menthol/Lanolin/Calamine/Znox 113 GM Tube 1 APPLIC TOPICAL ×2 (12:12→21:51)
[2023-06-23 21:50] VITALS: BP 142/76; PULSE 61
[2023-06-23] MEDS: Aspirin E.C. 81 MG Tablet PO (21:51)
[2023-06-23] MEDS: Atorvastatin Calcium 40 MG Tablet PO (21:51)
[2023-06-24] MEDS: Levothyroxine 25 MCG TABLET PO (06:09)
[2023-06-24] MEDS: Galantamine Hydrobromide 4 MG Tablet PO ×2 (08:16→17:51)
[2023-06-24] MEDS: Potassium Chloride Oral Tablet 20 MEQ PO ×2 (08:16→17:51)
[2023-06-24] MEDS: Menthol/Lanolin/Calamine/Znox 113 GM Tube 1 APPLIC TOPICAL ×2 (08:17→21:55)
[2023-06-24] MEDS: Amiodarone 200 MG Tablet 100 MG PO (08:17)
[2023-06-24] MEDS: hydroCHLOROthiazide 25 MG Tablet PO (08:18)
[2023-06-24] MEDS: Isosorbide Mononitrate 30 MG Tablet 60 MG PO (08:18)
[2023-06-24] MEDS: Losartan Potassium 100 MG Tablet PO (08:18)
[2023-06-24 08:19] VITALS: BP 149/69; PULSE 58
[2023-06-24] MEDS: Metoprolol(XL)Succ 50 MG Tablet PO ×2 (08:19→21:55)
[2023-06-24 10:00] VITALS: BP 149/69; PULSE 58; RESP 18; O2SAT 96
[2023-06-24 16:00] VITALS: TEMP 36.4
[2023-06-24 20:30] VITALS: PULSE 60; O2SAT 97
[2023-06-24 21:55] VITALS: BP 157/72; PULSE 60
[2023-06-24] MEDS: Aspirin E.C. 81 MG Tablet PO (21:55)
[2023-06-24] MEDS: Atorvastatin Calcium 40 MG Tablet PO (21:56)
[2023-06-25] MEDS: Levothyroxine 25 MCG TABLET PO (05:13)
[2023-06-25 05:18] VITALS: O2SAT 98
[2023-06-25] MEDS: Galantamine Hydrobromide 4 MG Tablet PO ×2 (08:49→17:59)
[2023-06-25] MEDS: Amiodarone 200 MG Tablet 100 MG PO (08:49)
[2023-06-25] MEDS: Potassium Chloride Oral Tablet 20 MEQ PO ×2 (08:49→17:59)
[2023-06-25] MEDS: Losartan Potassium 100 MG Tablet PO (08:50)
[2023-06-25] MEDS: hydroCHLOROthiazide 25 MG Tablet PO (08:50)
[2023-06-25] MEDS: Isosorbide Mononitrate 30 MG Tablet 60 MG PO (08:50)
[2023-06-25 08:55] VITALS: BP 157/70; PULSE 54
[2023-06-25] MEDS: Metoprolol(XL)Succ 50 MG Tablet PO ×2 (08:55→21:06)
[2023-06-25] MEDS: Menthol/Lanolin/Calamine/Znox 113 GM Tube 1 APPLIC TOPICAL ×2 (09:00→21:04)
[2023-06-25 15:29] VITALS: BP 141/73; PULSE 49; RESP 16; TEMP 36.4; O2SAT 98
[2023-06-25] MEDS: Aspirin E.C. 81 MG Tablet PO (21:05)
[2023-06-25] MEDS: Atorvastatin Calcium 40 MG Tablet PO (21:05)
[2023-06-25 21:06] VITALS: BP 115/58; PULSE 50
[2023-06-25 21:18] VITALS: BP 115/58; PULSE 50; O2SAT 94
[2023-06-26] MEDS: Levothyroxine 25 MCG TABLET PO (05:40)
[2023-06-26 08:50] VITALS: BP 149/77; PULSE 48; RESP 16; TEMP 36.2; O2SAT 93
[2023-06-26 08:51] VITALS: PULSE 48
[2023-06-26] MEDS: hydroCHLOROthiazide 25 MG Tablet PO (08:51)
[2023-06-26] MEDS: Galantamine Hydrobromide 4 MG Tablet PO ×2 (08:51→18:10)
[2023-06-26] MEDS: Potassium Chloride Oral Tablet 20 MEQ PO ×2 (08:51→18:10)
[2023-06-26] MEDS: Isosorbide Mononitrate 30 MG Tablet 60 MG PO (08:51)
[2023-06-26] MEDS: Metoprolol(XL)Succ 50 MG Tablet PO ×2 (08:51→20:16)
[2023-06-26] MEDS: Losartan Potassium 100 MG Tablet PO (08:52)
[2023-06-26] MEDS: Amiodarone 200 MG Tablet 100 MG PO (08:52)
[2023-06-26] MEDS: Menthol/Lanolin/Calamine/Znox 113 GM Tube 1 APPLIC TOPICAL ×2 (08:54→20:12)
[2023-06-26 10:17] VITALS: BMI 21.9
--- NOTE | 2023-06-26 13:16 | CASEMGMT ---
Social Work SW contacted patient's panda Liliam to discuss rehab concerns for patient care. Therapy recommends long term care pharmacist care support for patient due to cognition. EMIGDIO discussed recommendations for care assisted living v. Private Duty Care with long term care pharmacist support. Patient is unable to manage care independently. Liliam request that SW contact Kuldip Marlee for family discuss patient care. EMIGDIO contacted Kuldip to inform of aforementioned. Kuldip informed that he would like to be first person contact for patient care plans. EMIGDIO informed Kuldip of therapy recommendations for long term care pharmacist care. Kuldip suggested in home care. EMIGDIO discussed 24/hr care assistance. Kuldip informed EMIGDIO that he will be able to meet with EMIGDIO on 06/27/2023 at 1500. EMIGDIO will follow up with patient and nephew to discuss care plan meeting. MANOLO Laura
[2023-06-26] MEDS: Atorvastatin Calcium 40 MG Tablet PO (20:13)
[2023-06-26] MEDS: Aspirin E.C. 81 MG Tablet PO (20:13)
[2023-06-26 20:16] VITALS: BP 135/65; PULSE 50
[2023-06-26 20:26] VITALS: BP 135/65; PULSE 50; O2SAT 95
[2023-06-27] MEDS: Levothyroxine 25 MCG TABLET PO (05:12)
[2023-06-27 05:17] VITALS: O2SAT 98
[2023-06-27] MEDS: Potassium Chloride Oral Tablet 20 MEQ PO ×2 (09:14→16:25)
[2023-06-27] MEDS: Galantamine Hydrobromide 4 MG Tablet PO ×2 (09:15→16:25)
[2023-06-27] MEDS: Menthol/Lanolin/Calamine/Znox 113 GM Tube 1 APPLIC TOPICAL ×2 (09:15→20:57)
[2023-06-27 09:17] VITALS: BP 132/55; PULSE 46
[2023-06-27] MEDS: Metoprolol(XL)Succ 50 MG Tablet PO ×2 (09:17→20:57)
[2023-06-27] MEDS: Isosorbide Mononitrate 30 MG Tablet 60 MG PO (09:18)
[2023-06-27] MEDS: Losartan Potassium 100 MG Tablet PO (09:18)
[2023-06-27] MEDS: Amiodarone 200 MG Tablet 100 MG PO (09:18)
[2023-06-27] MEDS: hydroCHLOROthiazide 25 MG Tablet PO (09:18)
[2023-06-27 09:25] VITALS: BP 132/55; PULSE 46
--- NOTE | 2023-06-27 11:19 | MDS.RN ---
Information for the MDS was obtained from review of the clinical record, interview of resident, staff, and direct observation of resident?s care.
[2023-06-27 16:00] VITALS: BP 120/56; PULSE 52; RESP 16; TEMP 37.3; O2SAT 97
--- NOTE | 2023-06-27 16:31 | CASEMGMT ---
Addendum entered by Danni Balderas 06/27/23 17:44: Speech therapy recommended for home health ST to be added to referral. EMIGDIO updated discharge orders for home health care SN/PT/OT/ST/AREA DEVELOPMENT CONSULTANT Original Note: Social Work SW met with patient, nephew, Kuldip, and Kuldip's girlfriend, Genesis at [facility] to discuss transition of care plans. Patient has been requesting to discharge; SW discussed therapy concerns and recommendation for care. Patient's nephew, Kuldip informed SW that he would like patient to discharge home with assistance. Kuldip informed SW that the patient will return home with family assistance. Genesis is a nurse and will assist patient with medication management. Kuldip and Genesis informed patient that they will add grab bars in the bathroom, clean kitchen, and manage grocery shopping. Kuldip informed patient that he will assist with providing transportation for patient at discharge and in community. Genesis will assist with patient with managing personal care- weekly hair appointment. Patient and family were notified of driving restriction. Patient's nephew informed SW that he will assess patient driving. SW provided resources for patient care: private duty resource, medical alert device, driving rehab information, and meal delivery services. SW discussed discharge date with patient and family. Patient's nephew would like to discharge patient on 07/02/2023 at 1PM Patient's family would like home health care SN/PT/OT/AREA DEVELOPMENT CONSULTANT; no preference of agency Discharge: 07/02/23 Home with Home Health Care SN/PT/OT/AREA DEVELOPMENT CONSULTANT MANOLO Laura
--- NOTE | 2023-06-27 20:43 | DS.PCM_ITS ---
Providers Date of Admission: 06/15/23 Primary Care Physician: Dr. 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 Code(s): I72.0 - Aneurysm of carotid artery (3) Alzheimer disease: Status: Acute Code(s): G30.9 - Alzheimer's disease, unspecified; F02.80 - Dementia in other diseases classified elsewhere, unspecified severity, without behavioral disturbance, psychotic disturbance, mood disturbance, and anxiety (4) Anxiety: Status: Acute Code(s): F41.9 - Anxiety disorder, unspecified (5) Benzodiazepine dependence: Status: Acute Code(s): F13.20 - Sedative, hypnotic or anxiolytic dependence, uncomplicated (6) Coronary artery disease: Status: Chronic Code(s): I25.10 - Atherosclerotic heart disease of [place] coronary artery without angina pectoris (7) Hyperlipidemia: Status: Chronic Code(s): E78.5 - Hyperlipidemia, unspecified Qualifiers: Hyperlipidemia type: unspecified Qualified Code(s): E78.5 - Hyperlipidemia, unspecified (8) Hypothyroidism: Status: Acute Code(s): E03.9 - Hypothyroidism, unspecified (9) Hypertension: Status: Chronic Code(s): I10 - Essential (primary) hypertension (10) Hypokalemia: Status: Acute Code(s): E87.6 - Hypokalemia (11) Atrial fibrillation: Status: Acute Code(s): I48.91 - Unspecified atrial fibrillation Qualifiers: Atrial fibrillation type: paroxysmal Qualified Code(s): I48.0 - Paroxysmal atrial fibrillation (12) Tobacco abuse: Status: Acute Code(s): Z72.0 - Tobacco use Plan 82 year old female with below past medical history hospitalized with right ca rotid pseudoaneurysm, infected bovine patch, underwent repair right carotid pseudoaneurysm with reversed GSV interposition bypass 06/12/[address] Khan, admitted to TCU with debility, here for rehabilitation, strengthening, prior to disposition determination. * Debility - PT/OT. * Pain - Tylenol 1000mg q6 prn pain (1-5), Oxycodone 5mg q4 prn pain (6-10). * Bowel - senna/colace 1 tablet bid, Ducolax 10mg pr daily prn. * Adult immunization - Administer pneumonia vaccine, covid vaccine, flu vaccine as appropriate. * DVT prophylaxis - Monitor. * Right carotid bovine patch infection - Augmentin 875mg bid thru 06/22/2023. * Anxiety - Xanax 0.25mg qhs prn, stable chronic fdc use, GDR not recomm ended. * Atrial fibrillation - Metoprolol succinate 50mg bid, Amiodarone 100mg daily, Aspirin 81mg daily. * Coronary artery disease - Metoprolol succinate 50mg bid, Lisinopril 20mg bid, Imdur 60mg daily, NTG 0.4mg sl q5m prn. * Hyperlipidemia - Atorvastatin 40mg qhs. * Hypertension - Metoprolol succinate 50mg bid, Lisinopril 20mg bid, HCTZ 25mg daily. * Hypothyroidism - Levothyroxine 25mcg daily. * Hypokalemia - KCL 20meq bidcm. * Alzheimer Disease - Galantamine ER 8mg daily. Medications at Discharge Home Medications alprazolam 0.25 mg tablet 0.25 tab PO QHS PRN jaw pain 05/24/16 aspirin 81 mg tablet,delayed release 81 mg PO QHS heart health 05/24/16 nitroglycerin 0.4 mg sublingual tablet 0.4 mg sublingual UD PRN Cardiac/Chest Pain #90 tabs 02/03/22 metoprolol succinate 50 mg tablet,extended release 24 hr 50 mg PO BID bp #180 tabs 05/11/22 amiodarone 200 mg tablet 100 mg (1/2 x 200 mg) PO DAILY heart #45 tabs 10/09/22 levothyroxine 25 mcg tablet 25 mcg PO DAILY HYPOTHYROID 10/16/22 hydrochlorothiazide 25 mg tablet See Rx Instructions .Route .COMPLEX HYPERTENSION #90 TABLETS 04/24/23 isosorbide mononitrate 30 mg tablet,extended release 24 hr 60 mg (2 x 30 mg) PO DAILY heart #180 tabs 04/25/23 potassium chloride 20 mEq tablet,extended release(part/cryst) (Klor-Con M) 20 meq PO BID HYPOKALEMIA 05/23/23 atorvastatin 40 mg tablet 40 mg PO QHS 30 days #30 tabs 06/27/23 galantamine 4 mg tablet 4 mg PO BIDCM 30 days #60 tabs 06/27/23 losartan 100 mg tablet 100 mg PO DAILY 30 days #30 tabs 06/27/23 Hospital Course Operations - (See below.) Procedures None Summary of Care Provided Minutes Spent on Discharge: 35 Hospital Course: 82 year old female with below past medical history hospitalized with right carotid pseudoaneurysm, infected bovine patch, underwent repair right carotid pseudoaneurysm with reversed GSV interposition bypass 06/12/[address] Khan, admitted to TCU with debility, here for rehabilitation, strengthening, prior to disposition determination. Discharge home alone with nephew Kuldip Kuldip's girlfriend Genesis's assistance, [facility] PT/OT/ST/NICOLE/SN. Physical Exam Const alert General Appearance: cooperative HEENT normocephalic Eyes PERRL and EOMs intact bilaterally Neck supple, no JVD and no carotid bruits Resp normal respiratory effort, normal air movement and clear to auscultation bilaterally Cardio regular rate and regular rhythm GI normal to inspection, nondistended, normoactive bowel sounds, non-tender and non-distended Extremity normal capillary refill General Extremity: Negative for edema Skin no rashes or lesions noted General Skin Exam: no breakdown Psych affect normal Appearance: appropriate Weight / BMI Weight Weight: 49.305 kg Body Mass Index (BMI) 21.9 ABG / Lab / Microbiology Data 06/22/23 05:06 06/22/23 05:06 D/C Instructions Discharge Diet: No restrictions Discharge Activity: Return to Normal Activity, May Shower and Use Walker Weight Bearing Status: Weight bearing as tolerated Call your doctor if you observe: Fever of 101 or Higher, Inability to urinate, Inability to have a bowel movement, Shortness of breath, Dizziness, Fainting spells, Swelling in the ankles, Chest pain and Uncontrolled pain Additional Instructions: Discharge home alone with nephew KuldipKuldip's girlfriend Genesis's assistance, [facility] PT/OT/ST/NICOLE/SN. Please Follow Up With: Mitchel Khan MD When: As scheduled. Meaningful Use Info Meaningful Use Meaningful Use Diagnoses (Choose all that apply): None applicable Ischemic Stroke Statin Dosing Therapy Reference: STATIN DOSE THERAPY REFERENCE: * Patients > 75 years receive moderate or high dose statin therapy. * Patients 75 years or YOUNGER should receive HIGH intensity statin dose unless contraindicated. You will be required to document reason for non-treatment if statin daily dose does not meet guidelines. HIGH DOSE STATIN THERAPY DAILY Atorvastatin > than or = to 40 mg Rosuvastatin > than or = to 20 mg Amlodipine + Atorvastatin > than or = to 2.5/40 mg Ezetimibe + Simvastatin 10/80 mg Simvastatin 80mg Discharge Plan Admission Admit Date/Time: 06/15/23 15:43 Primary Reason for Your Visit: Debility. Attending Provider: Enrike Dobbins Chi Primary Care Provider: Enrike Dobbins Chi Instructions Additional Instructions / Restrictions: Discharge home alone with nephew Kuldip Kuldip's girlfriend Genesis's assistance, [facility] PT/OT/ST/NICOLE/SN. Discharge Orders/Prescriptions Prescriptions: New atorvastatin 40 mg Tablet 40 mg PO QHS 30 Days Qty: 30 0RF galantamine 4 mg Tablet 4 mg PO BIDCM 30 Days Qty: 60 0RF losartan 100 mg Tablet 100 mg PO DAILY 30 Days Qty: 30 0RF Continued nitroglycerin 0.4 mg tablet, sublingual 0.4 mg SUBLINGUAL UD MDD Q5min prn PRN (Reason: Cardiac/Chest Pain) Qty: 90 6RF levothyroxine 25 mcg tablet 25 mcg PO DAILY aspirin 81 MG tablet,delayed release (DR/EC) 81 mg PO QHS alprazolam 0.25 MG tablet 0.25 tab PO QHS PRN (Reason: jaw pain) Patient Comments: for jaw, takes in the late evening potassium chloride [Klor-Con M20] 20 mEq tablet,ER particles/crystals 20 meq PO BID metoprolol succinate 50 mg tablet extended release 24 hr 50 mg PO BID Qty: 180 4RF Rx Instructions: MUST BE BRAND NAME MEDICATION amiodarone 200 mg tablet 100 mg PO DAILY Qty: 45 3RF hydrochlorothiazide 25 mg tablet See Rx Instructions .ROUTE .COMPLEX Qty: 90 3RF Dose Instruction: TAKE 1 TAB BY MOUTH DAILY Rx Instructions: TAKE 1 TAB BY MOUTH DAILY isosorbide mononitrate 30 mg tablet extended release 24 hr 60 mg PO DAILY Qty: 180 3RF Rx Instructions: Must be white pill not red pill Discontinued amlodipine 5 mg tablet 5 mg PO DAILY docusate sodium 100 mg Capsule 100 mg PO BID PRN PRN (Reason: Constipation) Qty: 0 0RF oxycodone 5 mg Tablet 5 mg PO Q6H PRN PRN (Reason: Pain Score 4-10) 5 Days Qty: 20 0RF amoxicillin-pot clavulanate 875-125 mg tablet 1 tab PO BID 7 Days Qty: 14 0RF atorvastatin [Lipitor] 40 mg tablet 40 mg PO QDAY Qty: 90 4RF Rx Instructions: Must be Brand Name, no generic. lisinopril [Zestril] 20 mg tablet See Rx Instructions .ROUTE .COMPLEX Qty: 180 3RF Dose Instruction: TAKE 1 TABLET BY MOUTH TWICE A DAY Rx Instructions: TAKE 1 TABLET BY MOUTH TWICE A DAY Referrals / Follow Up: Enrike Dobbins Chi, MD [Primary Care Provider] - Within 1 Week Disposition Disposition (needs filled in before D/C Order can be placed): Home Health Service
[2023-06-27 20:55] VITALS: BP 146/89; PULSE 53
[2023-06-27 20:57] VITALS: BP 146/89; PULSE 53
[2023-06-27] MEDS: Atorvastatin Calcium 40 MG Tablet PO (20:57)
[2023-06-27] MEDS: Aspirin E.C. 81 MG Tablet PO (20:57)
[2023-06-28] MEDS: Levothyroxine 25 MCG TABLET PO (05:53)
[2023-06-28 09:29] VITALS: BP 134/58; PULSE 58; RESP 18; O2SAT 96
[2023-06-28 09:32] VITALS: PULSE 58
[2023-06-28] MEDS: Galantamine Hydrobromide 4 MG Tablet PO ×2 (09:32→17:15)
[2023-06-28] MEDS: Potassium Chloride Oral Tablet 20 MEQ PO ×2 (09:32→17:15)
[2023-06-28] MEDS: hydroCHLOROthiazide 25 MG Tablet PO (09:32)
[2023-06-28] MEDS: Losartan Potassium 100 MG Tablet PO (09:32)
[2023-06-28] MEDS: Metoprolol(XL)Succ 50 MG Tablet PO ×2 (09:32→21:19)
[2023-06-28] MEDS: Isosorbide Mononitrate 30 MG Tablet 60 MG PO (09:33)
[2023-06-28] MEDS: Menthol/Lanolin/Calamine/Znox 113 GM Tube 1 APPLIC TOPICAL ×2 (09:35→21:16)
[2023-06-28] MEDS: Amiodarone 200 MG Tablet 100 MG PO (11:03)
[2023-06-28 13:44] VITALS: TEMP 36.2
--- NOTE | 2023-06-28 17:18 | NURSING ---
Staff transports pt off unit for appt w/ Dr. Khan ([facility]) ~1120, returns to unit ~1230. No new orders at this time. Follow-up date scheduled and chart updated.
[2023-06-28] MEDS: Aspirin E.C. 81 MG Tablet PO (21:18)
[2023-06-28 21:19] VITALS: BP 161/78; PULSE 50
[2023-06-28] MEDS: Atorvastatin Calcium 40 MG Tablet PO (21:19)
[2023-06-28 21:23] VITALS: BP 161/78; PULSE 50
[2023-06-29] MEDS: Levothyroxine 25 MCG TABLET PO (05:29)
[2023-06-29 06:03] LABS: Absolute Neutrophil Count 4.7 X10^3/uL (2.0-7.7); Basophil# 0.11 X10^3/uL; Basophil% 1.3 % (0-1); Eosinophil# 0.57 X10^3/uL; Eosinophils% 6.7 % (0-5); Hematocrit 39.6 % (37-47); Hemoglobin 12.6 g/dL (12.0-15.0); Lymphocyte % 25.9 % (19-41); Mean Corp Hgb Conc 31.8 g/dL (32-36); Mean Corpuscular Hgb 25.9 pg (27.0-32.0); Mean Corpuscular Volume 81.3 fL (81-99); Mean Platelet Vol. 9.7 fl (6.2-12.0); Monocyte% 10.6 % (0-10); NRBC Flagged by Analyzer 0 % (0-5); Neutrophil # 4.69 X10^3/uL (2.7-7.7); Platelet Count 364 K/mm3 (150-450); RBC Distribution Width CV 16.6 % (11.6-14.6); RBC Distribution Width SD 48.6 fl (35.1-43.9); Red Blood Count 4.87 M/mm3 (4.2-5.4); White Blood Count 8.5 K/mm3 (4.4-11.0)
[2023-06-29 06:33] LABS: Anion Gap 6 (5-15); BUN 15 mg/dL (7-18); BUN/Creat Ratio 17.7 RATIO (10-20); Calcium,Total 8.7 mg/dL (8.5-10.1); Chloride 103 mmol/L (98-107); Creatinine, Serum 0.85 mg/dL (0.55-1.02); EST Glomerular Filtration Rate 68 mL/min (>60); Est Glom Filt Rate - Afr Amer 82 mL/min (>60); Estimated Creatinine Clearance 36.02 ml/min; Glucose 91 mg/dL (74-106); Potassium 3.8 mmol/L (3.5-5.1); Sodium Level 136 mmol/L (136-145)
[2023-06-29] MEDS: Isosorbide Mononitrate 30 MG Tablet 60 MG PO (09:39)
[2023-06-29] MEDS: Potassium Chloride Oral Tablet 20 MEQ PO ×2 (09:39→16:54)
[2023-06-29] MEDS: Losartan Potassium 100 MG Tablet PO (09:39)
[2023-06-29] MEDS: Galantamine Hydrobromide 4 MG Tablet PO ×2 (09:39→16:55)
[2023-06-29] MEDS: hydroCHLOROthiazide 25 MG Tablet PO (09:40)
[2023-06-29] MEDS: Amiodarone 200 MG Tablet 100 MG PO (09:40)
[2023-06-29 09:47] VITALS: BP 175/70; PULSE 50
[2023-06-29] MEDS: Metoprolol(XL)Succ 50 MG Tablet PO ×2 (09:47→22:03)
[2023-06-29] MEDS: amLODIPine 5 MG Tablet PO (09:47)
[2023-06-29] MEDS: Menthol/Lanolin/Calamine/Znox 113 GM Tube 1 APPLIC TOPICAL ×2 (09:51→22:03)
[2023-06-29 09:53] VITALS: BP 175/70; PULSE 50
[2023-06-29 15:35] VITALS: BP 110/62; PULSE 69; RESP 18; TEMP 36.1; O2SAT 99
[2023-06-29 20:30] VITALS: PULSE 50; O2SAT 96
[2023-06-29 22:03] VITALS: BP 129/60; PULSE 50
[2023-06-29] MEDS: Aspirin E.C. 81 MG Tablet PO (22:03)
[2023-06-29] MEDS: Atorvastatin Calcium 40 MG Tablet PO (22:03)
[2023-06-30] MEDS: Levothyroxine 25 MCG TABLET PO (06:12)
[2023-06-30 08:26] VITALS: BP 160/80; PULSE 47; RESP 16; TEMP 36.8; O2SAT 98
[2023-06-30] MEDS: Potassium Chloride Oral Tablet 20 MEQ PO ×2 (08:30→17:45)
[2023-06-30] MEDS: hydroCHLOROthiazide 25 MG Tablet PO (08:31)
[2023-06-30] MEDS: Galantamine Hydrobromide 4 MG Tablet PO ×2 (08:31→17:45)
[2023-06-30] MEDS: Isosorbide Mononitrate 30 MG Tablet 60 MG PO (08:31)
[2023-06-30] MEDS: Losartan Potassium 100 MG Tablet PO (08:31)
[2023-06-30] MEDS: Amiodarone 200 MG Tablet 100 MG PO (08:31)
[2023-06-30 08:32] VITALS: PULSE 68
[2023-06-30] MEDS: Metoprolol(XL)Succ 50 MG Tablet PO ×2 (08:32→21:55)
[2023-06-30] MEDS: amLODIPine 5 MG Tablet PO (08:32)
[2023-06-30] MEDS: Menthol/Lanolin/Calamine/Znox 113 GM Tube 1 APPLIC TOPICAL ×2 (08:35→21:52)
[2023-06-30 15:27] VITALS: PULSE 44; RESP 16; O2SAT 97
[2023-06-30 21:55] VITALS: BP 152/71; PULSE 53
[2023-06-30] MEDS: Aspirin E.C. 81 MG Tablet PO (21:55)
[2023-06-30] MEDS: Atorvastatin Calcium 40 MG Tablet PO (21:56)
[2023-06-30 22:00] VITALS: BP 152/71; PULSE 53; O2SAT 97
[2023-07-01] MEDS: Levothyroxine 25 MCG TABLET PO (05:24)
[2023-07-01] MEDS: Potassium Chloride Oral Tablet 20 MEQ PO ×2 (09:31→17:11)
[2023-07-01] MEDS: Amiodarone 200 MG Tablet 100 MG PO (09:32)
[2023-07-01] MEDS: Galantamine Hydrobromide 4 MG Tablet PO ×2 (09:32→17:11)
[2023-07-01] MEDS: Menthol/Lanolin/Calamine/Znox 113 GM Tube 1 APPLIC TOPICAL ×2 (09:33→21:23)
[2023-07-01] MEDS: hydroCHLOROthiazide 25 MG Tablet PO (09:34)
[2023-07-01] MEDS: Losartan Potassium 100 MG Tablet PO (09:34)
[2023-07-01 09:35] VITALS: BP 101/59; PULSE 52
[2023-07-01] MEDS: amLODIPine 5 MG Tablet PO (09:35)
[2023-07-01] MEDS: Metoprolol(XL)Succ 50 MG Tablet PO ×2 (09:35→21:25)
[2023-07-01] MEDS: Isosorbide Mononitrate 30 MG Tablet 60 MG PO (09:35)
[2023-07-01 09:39] VITALS: BP 101/59; PULSE 52
[2023-07-01 14:00] VITALS: PULSE 46; RESP 16; O2SAT 98
--- NOTE | 2023-07-01 14:57 | NURSING ---
PT ASKED IF SHE COULD GO FOR A WALK. THIS NURSE WALKED PT 2 LAPS IN BAUGH OF TCU. PT THANKED THIS NURSE. PT DID WELL.
[2023-07-01 15:58] VITALS: BP 115/56; PULSE 43; RESP 22; TEMP 36.1; O2SAT 96
[2023-07-01 21:25] VITALS: BP 177/81; PULSE 60
[2023-07-01] MEDS: Aspirin E.C. 81 MG Tablet PO (21:25)
[2023-07-01] MEDS: Atorvastatin Calcium 40 MG Tablet PO (21:25)
[2023-07-02] MEDS: Levothyroxine 25 MCG TABLET PO (06:04)
[2023-07-02 07:16] VITALS: PULSE 61; RESP 18; O2SAT 95
[2023-07-02] MEDS: Potassium Chloride Oral Tablet 20 MEQ PO (09:03)
[2023-07-02] MEDS: Amiodarone 200 MG Tablet 100 MG PO (09:05)
[2023-07-02 09:06] VITALS: BP 152/80; PULSE 46
[2023-07-02] MEDS: Metoprolol(XL)Succ 50 MG Tablet PO (09:06)
[2023-07-02] MEDS: amLODIPine 5 MG Tablet PO (09:06)
[2023-07-02] MEDS: Isosorbide Mononitrate 30 MG Tablet 60 MG PO (09:06)
[2023-07-02] MEDS: hydroCHLOROthiazide 25 MG Tablet PO (09:06)
[2023-07-02] MEDS: Losartan Potassium 100 MG Tablet PO (09:06)
[2023-07-02] MEDS: Menthol/Lanolin/Calamine/Znox 113 GM Tube 1 APPLIC TOPICAL (09:15)
[2023-07-02] MEDS: Galantamine Hydrobromide 4 MG Tablet PO (09:17)
[2023-07-02 09:20] VITALS: BP 154/80; PULSE 46
--- NOTE | 2023-07-02 11:29 | CASEMGMT ---
Addendum entered by Danni Balderas 07/02/23 12:51: SW received confirmation of acceptance for home health care via [facility]. Start of care on 07/03/2023 Original Note: Social Work SW met with patient at bedside to complete discharge MDS. BIM and PhQ-2 (00) SW discussed home health care; patient informed SW that she does not have a preference for home health. Patient requested that CM contact patient's nephew, Kuldip. SW attempted to contact Kuldip; no answer. Patient referral submitted to [facility] for PT/OT/ST/HYDROCHLORIC MANUFACTURING SUPERVISOR/SN Patient family to provide transportation to home MANOLO Laura
[2023-07-02 12:46] VITALS: BP 109/68; PULSE 94; RESP 16; TEMP 36.2; O2SAT 96
[2023-07-02 13:58] VITALS: BP 109/68; PULSE 94; RESP 16; TEMP 36.2; O2SAT 96
== END 2023-07-02 13:15 | disposition home health service (06) | DRG 950 ==
PROVIDERS: Admitting Provider Family Medicine Geriatric Medicine; PCP Family Medicine Geriatric Medicine; Visit Provider Family Medicine Geriatric Medicine
DX: T82.7XXD Infection and inflammatory reaction due to other cardiac and vascular devices, implants and grafts, subsequent encounter (principal); E03.9 Hypothyroidism, unspecified; F02.80 Dementia in other diseases classified elsewhere, unspecified severity, without behavioral disturbance, psychotic disturbance, mood disturbance, and anxiety; I48.0 Paroxysmal atrial fibrillation; G30.9 Alzheimer's disease, unspecified; I10 Essential (primary) hypertension; I25.5 Ischemic cardiomyopathy; F17.210 Nicotine dependence, cigarettes, uncomplicated; F41.9 Anxiety disorder, unspecified; I25.10 Atherosclerotic heart disease of native coronary artery without angina pectoris; E87.6 Hypokalemia; E78.00 Pure hypercholesterolemia, unspecified; Z79.82 Long term (current) use of aspirin; Z95.5 Presence of coronary angioplasty implant and graft; Z79.899 Other long term (current) drug therapy; Y71.2 Prosthetic and other implants, materials and accessory cardiovascular devices associated with adverse incidents
CPT/HCPCS: 36415; 80048; 85025; 92507; 92523; 92610; 97110; 97116; 97162; 97166; 97530; 97535; 97802

== ENCOUNTER → 2023-07-17 | Outpatient (CLI) | payer MEDICARE, BC, SELFPAY ==
[2023-07-17 16:09] LABS: Absolute Lymphocyte Count 1.54 X10^3/uL (0.83-4.51); Absolute Neutrophil Count 4.9 X10^3/uL (2.0-7.7); Basophil# 0.07 X10^3/uL; Eosinophil# 0.17 X10^3/uL; Eosinophils% 2.3 % (0-5); Hematocrit 45.1 % (37-47); Hemoglobin 14.3 g/dL (12.0-15.0); Lymphocyte # 1.54 X10^3/ul (0.83-4.51); Mean Corp Hgb Conc 31.7 g/dL (32-36); Mean Corpuscular Hgb 26.1 pg (27.0-32.0); Mean Corpuscular Volume 82.4 fL (81-99); Mean Platelet Vol. 9.8 fl (6.2-12.0); Monocyte% 8.2 % (0-10); NRBC Flagged by Analyzer 0 % (0-5); Neutrophil # 4.93 X10^3/uL (2.7-7.7); Platelet Count 290 K/mm3 (150-450); RBC Distribution Width CV 17.2 % (11.6-14.6); RBC Distribution Width SD 51.2 fl (35.1-43.9); Red Blood Count 5.47 M/mm3 (4.2-5.4); White Blood Count 7.4 K/mm3 (4.4-11.0)
[2023-07-17 16:36] LABS: Vitamin D,25 Hydroxy 25.1 ng/mL
[2023-07-17 16:45] LABS: ALB/GLOB Ratio 0.9 RATIO (0.9-2.4); AST(SGOT) 25 U/L (15-37); Alanine Aminotransfer ALT/SGPT 17 U/L (13-56); Albumin, Serum 3.5 g/dL (3.2-5.0); Alkaline Phosphatase 116 U/L (45-117); Anion Gap 8 (5-15); BUN 21 mg/dL (7-18); BUN/Creat Ratio 18.3 RATIO (10-20); Calcium,Total 9.3 mg/dL (8.5-10.1); Chloride 104 mmol/L (98-107); Creatinine, Serum 1.15 mg/dL (0.55-1.02); EST Glomerular Filtration Rate 48 mL/min (>60); Est Glom Filt Rate - Afr Amer 58 mL/min (>60); Globulin 3.7 g/dL (2.2-4.2); Glucose 89 mg/dL (74-106); Potassium 4.3 mmol/L (3.5-5.1); Protein, Total 7.2 g/dL (6.4-8.2); Sodium Level 137 mmol/L (136-145); Thyroid Stim Hormone (TSH) 1.81 uIU/mL (0.358-3.74); Uric Acid 3.8 mg/dL (2.6-6.0)
== END | disposition home or self-care (01) ==
LOC: LAB 14:42
PROVIDERS: PCP Family Medicine Geriatric Medicine; Referring Provider Family Medicine Geriatric Medicine; Visit Provider Family Medicine Geriatric Medicine
DX: I10 Essential (primary) hypertension (principal); M10.9 Gout, unspecified; E55.9 Vitamin D deficiency, unspecified
CPT/HCPCS: 36415; 80053; 82306; 84443; 84550; 85025

== ENCOUNTER → 2023-10-09 | Outpatient (CLI) | payer MEDICARE, BC, SELFPAY ==
--- NOTE | 2023-10-09 16:30 | RAD_ITS ---
STUDY: X-RAY - LUMBAR SPINE REASON FOR EXAM: Female, 83 years old. Low back pain. TECHNIQUE: 5 view(s) of the lumbar spine were obtained. COMPARISON: None FINDINGS: Marked osteopenia. Exaggerated lordosis. Marked thoracolumbar scoliosis. Normal alignment of the vertebral bodies. Endplate and cavities compatible with osteoporosis. Marked anterior wedging of the L2 and L3 vertebral bodies. Diffuse intervertebral disc space narrowing with marked osteophyte formation. Marked vascular calcification. RAD/L/S Spine Min 4 Views IMPRESSION: Substantial osteopenia with marked scoliosis and lower thoracic and lumbosacral spondylosis. Anterior wedging of L2 and L3, age indeterminate. Electronically Signed: Delonte Davis MD at 9:18 EDT ,
== END | disposition home or self-care (01) ==
LOC: RAD 16:21
PROVIDERS: PCP Family Medicine Geriatric Medicine; Referring Provider Family Medicine Geriatric Medicine; Visit Provider Family Medicine Geriatric Medicine
DX: M54.32 Sciatica, left side (principal); M54.50 Low back pain, unspecified
CPT/HCPCS: 72110

== ENCOUNTER → 2023-10-25 | Outpatient (CLI) | payer MEDICARE, BC, SELFPAY ==
--- NOTE | 2023-10-25 15:50 | RAD_ITS ---
STUDY: X-RAY - LEFT KNEE REASON FOR EXAM: Female, 83 years old. LEFT KNEE PAIN TECHNIQUE: 4 view(s) of the knee. COMPARISON: None. FINDINGS: Normal visualized distal femur. Normal visualized proximal tibia and fibula. Normal proximal tibiofibular articulation. There is mild degenerative arthrosis of the medial femorotibial compartment. Normal lateral femorotibial compartment. Normal patellofemoral articulation. There are atherosclerotic calcifications. RAD/Knee 4 or More Views IMPRESSION: Mild degree of joint space narrowing involving the medial compartment of the knee joint. Electronically Signed: Derek Villalobos MD at 13:27 EDT ,
== END | disposition home or self-care (01) ==
LOC: RAD 15:35
PROVIDERS: PCP Family Medicine Geriatric Medicine; Referring Provider Anesthesiology; Visit Provider Anesthesiology
DX: M25.569 Pain in unspecified knee (principal)
CPT/HCPCS: 73564

== ENCOUNTER → 2023-11-01 | Outpatient (CLI) | payer MEDICARE, BC, SELFPAY ==
--- NOTE | 2023-11-01 12:58 | BD_ITS ---
STUDY: DUAL ENERGY X-RAY ABSORPTIOMETRY / DXA REASON FOR EXAM: Female, 83 years old. 627.8Menopausal postmenopausalBONE DENSITY REASON FOR EXAM TECHNIQUE: Bone Mineral Density (BMD) measurements of lumbar spine and bilateral hips were obtained. COMPARISON: Comparison is made with prior study dated November 06, 2013. FINDINGS: Lumbar Spine (L1-L4): g/cm2 (1.048) / T-score (-0.3) / Z-score (2.6) Findings are suggestive of normal bone density with a low fracture risk. Left Femur Total: g/cm2 (0.664) / T-score (-2.3) / Z-score (0.0) Left Femoral Neck: g/cm2 (0.506) / T-score (-3.1) / Z-score (-0.6) Right Femur Total: g/cm2 (0.578) / T-score (-3.0) / Z-score (-0.7) Right Femoral Neck: g/cm2 (0.514) / T-score (-3.0) / Z-score (by 0.5) The T-Scores on the most recent prior examination were: Lumbar Spine (L1-L4): There has been worsening of bone density since the previous examination. Left Femur Total: which represents a worsening of 19%. Right Femur Total: which represents a worsening of 24%. BD/Dexa Bone Density Study IMPRESSION: The patient is considered osteoporotic as outlined below according to World Rene Organization (WHO) criteria with a high fracture risk. There has been worsening of bone density since the previous examination. Reference Information: The T-score is the number of standard deviations above or below the standard which is normal for young adults at their peak bone mineral density. The World Health Organization (WHO) interprets the T-scores as follows: Above -1 Normal bone density Between -1 and -2.5 Osteopenia Equal to / or below -2.5 Osteoporosis As a practical clinical guideline, osteopenia may be graded as follows: Mild -1 through -1.5 Moderate -1.6 through -2.0 Severe -2.1 through -2.4 The Z-score is the number of standard deviations above or below age-matched controls. A Z-score of less than -1.5 would be considered abnormal. References: 1. NIH Osteoporosis and Related Bone Diseases www osteo.org 2. International Society for Clinical Densitometry www iscd.org 3. National Osteoporosis Foundation www nof.org Electronically Signed: Derek Villalobos MD at 12:24 EDT ,
== END | disposition home or self-care (01) ==
LOC: OPBD 12:56
PROVIDERS: PCP Family Medicine Geriatric Medicine; Referring Provider Family Medicine Geriatric Medicine; Visit Provider Family Medicine Geriatric Medicine
DX: Z78.0 Asymptomatic menopausal state (principal)
CPT/HCPCS: 77080

== ENCOUNTER → 2023-11-19 | Outpatient (CLI) | payer MEDICARE, BC, SELFPAY ==
[2023-11-19 17:25] LABS: Absolute Neutrophil Count 8.4 X10^3/uL (2.0-7.7); Basophil# 0.05 X10^3/uL; Basophil% 0.4 % (0-1); Eosinophil# 0.05 X10^3/uL; Eosinophils% 0.4 % (0-5); Hematocrit 45.4 % (37-47); Hemoglobin 14.4 g/dL (12.0-15.0); Lymphocyte % 17.3 % (19-41); Mean Corp Hgb Conc 31.7 g/dL (32-36); Mean Corpuscular Hgb 26.8 pg (27.0-32.0); Mean Corpuscular Volume 84.5 fL (81-99); Mean Platelet Vol. 9.4 fl (6.2-12.0); Monocyte# 0.97 X10^3/uL; Monocyte% 8.4 % (0-10); NRBC Flagged by Analyzer 0 % (0-5); Neutrophil # 8.44 X10^3/uL (2.7-7.7); Neutrophil % 73.1 % (47-70); Platelet Count 287 K/mm3 (150-450); RBC Distribution Width CV 17.9 % (11.6-14.6); RBC Distribution Width SD 54.5 fl (35.1-43.9); Red Blood Count 5.37 M/mm3 (4.2-5.4); White Blood Count 11.6 K/mm3 (4.4-11.0)
[2023-11-19 18:13] LABS: ALB/GLOB Ratio 1.1 RATIO (0.9-2.4); AST(SGOT) 20 U/L (15-37); Alanine Aminotransfer ALT/SGPT 17 U/L (13-56); Albumin, Serum 3.5 g/dL (3.2-5.0); Alkaline Phosphatase 111 U/L (45-117); Anion Gap 7 (5-15); BUN 23 mg/dL (7-18); BUN/Creat Ratio 21.1 RATIO (10-20); Calcium,Total 9.2 mg/dL (8.5-10.1); Chloride 106 mmol/L (98-107); Creatinine, Serum 1.09 mg/dL (0.55-1.02); EST Glomerular Filtration Rate 51 mL/min (>60); Est Glom Filt Rate - Afr Amer 62 mL/min (>60); Globulin 3.3 g/dL (2.2-4.2); Glucose 99 mg/dL (74-106); Potassium 3.6 mmol/L (3.5-5.1); Protein, Total 6.8 g/dL (6.4-8.2); Sodium Level 140 mmol/L (136-145)
[2023-11-19 18:31] LABS: Vitamin D,25 Hydroxy 11.3 ng/mL
== END | disposition home or self-care (01) ==
LOC: POLAB3 16:51
PROVIDERS: PCP Family Medicine Geriatric Medicine; Visit Provider Family Medicine Geriatric Medicine
DX: I10 Essential (primary) hypertension (principal); E55.9 Vitamin D deficiency, unspecified
CPT/HCPCS: 36415; 80053; 82306; 84443; 85025

== ENCOUNTER → 2023-11-22 | Outpatient (CLI) | payer MEDICARE, BC, SELFPAY ==
--- NOTE | 2023-11-22 14:09 | CT_ITS ---
EXAM: CT LUMBAR SPINE WITHOUT INTRAVENOUS CONTRAST CLINICAL INDICATION: LOW BACK PAIN TECHNIQUE: Helically acquired images were obtained of the lumbar spine without intravenous contrast. 2D reformats were reviewed. This CT exam was performed using one or more of the following dose reduction techniques: automated exposure control, adjustment of the mA and/or kV according to patient size, and/or use of iterative reconstruction technique. RADIATION DOSE: CTDIvol = 9.52 mGy, DLP = 243.44 mGy-cm COMPARISON: Plain films October 09, 2023. FINDINGS: VERTEBRAE: There is moderate dextroscoliosis centered at level of fusion at L2-3. Multilevel spondylosis. DISCS/SPINAL CANAL/NEURAL FORAMINA: Markedly advanced degenerative change of the lumbar spine. There is fusion at L2-3. Marked disc space narrowing and vacuum disc at L4-5, L3-4, L1-2 12-L1. No high-grade spinal stenosis. Multilevel neural foraminal at least mild neural foraminal stenosis. Narrowing of the canal at multiple levels due to prominent spondylosis and annular disc bulge. VASCULATURE: Heavily calcified aorta and iliac arteries. Distal descending thoracic aorta is 2.8 cm, not frankly aneurysmal. No fractures. Demineralization. Intact sacral wings and SI joints. LYMPH NODES: Unremarkable. No retroperitoneal adenopathy. RETROPERITONEAL SPACE: Unremarkable as visualized. No retroperitoneal hematoma. Kidneys are not fully included but there appears to be at least [address]/Spine Lumbar without Contrast IMPRESSION: 1. Advanced degenerative changes, fusion L2-3, moderate dextroscoliosis, multilevel vacuum disc and marked disc space narrowing. 2. No evidence of high-grade spinal stenosis or fracture. Electronically Signed: Pam Morley MD at 2:18 EDT ,
== END | disposition home or self-care (01) ==
LOC: CT 14:06
PROVIDERS: PCP Family Medicine Geriatric Medicine; Referring Provider Family Medicine Geriatric Medicine; Visit Provider Family Medicine Geriatric Medicine
DX: M54.50 Low back pain, unspecified (principal); M54.32 Sciatica, left side; M54.16 Radiculopathy, lumbar region
CPT/HCPCS: 72131

== ENCOUNTER → 2023-12-10 | Outpatient (CLI) | payer MEDICARE, BC, SELFPAY ==
--- NOTE | 2023-12-10 14:58 | CDU_ITS ---
Reason For Study: S/P Rt ICA pseudoaneurysm repair Rt. Velocities/BP Lt. Velocities/BP Prox CCA 22.3/5.2 cm/sec. Prox CCA 44.8/8.1 cm/sec. Mid CCA 25.8/7.2 cm/sec. Mid CCA 66.6/12.5 cm/sec. CCA distal to ICA mid Bypass Dist CCA 77.9/13.3 cm/sec. Prox anastamosis, 58.9/14.5 cm/sec. Prox ICA 76.2/16.8 cm/sec. Prox graft, 62.6/16.3 cm/sec. Mid ICA 60.8/15.7 cm/sec. Mid graft, 65.5/14.5 cm/sec. Dist ICA 63/14.6 cm/sec. Distal graft, 59.8/16.3 cm/sec. Lt. ICA/CCA = 1.14. Distal anastamosis, 62.6/18.2 cm/sec. Prox ECA 85/5.8 cm/sec. Mid ICA 55.1/15.4 cm/sec. Lt. Vert. 25.8/8.8 cm/sec. Dist ICA 38.9/10.3 cm/sec. Rt. Vert. 28.6/6 cm/sec. Right Extracranial There is homogeneous, smooth atherosclerotic plaque noted in the right common carotid artery. CCA distal- ICA mid bypass noted. There is intimal thickening but no significant atherosclerotic plaque noted in the right internal carotid artery. ECA not visualized. Antegrade flow is noted in the right vertebral artery. Left Extracranial There is homogeneous, smooth atherosclerotic plaque noted in the left common carotid artery. There is heterogeneous, irregular atherosclerotic plaque noted in the left internal carotid artery. There is heterogeneous, irregular atherosclerotic plaque noted in the left external carotid artery. Antegrade flow is noted in the left vertebral artery. Procedure Carotid Duplex [id number]. This is a Carotid Duplex examination using B-mode, color flow and specral Doppler. Exam performed in department. VL/Carotid Duplex Ultrasound Interpretation Summary Patent right carotid bypass with normal velocities and no stenosis. Mild (<50%) stenosis left extracranial internal carotid. Patent and antegrade vertebrals bilaterally. Ordering Physician: Kalee Messer Referring Physician: Enrike Dobbins Chi Performed By: Marlen Vides RVT
== END | disposition home or self-care (01) ==
LOC: CVS 14:57
PROVIDERS: PCP Family Medicine Geriatric Medicine; Referring Provider Physician Assistant; Visit Provider Physician Assistant
DX: I65.21 Occlusion and stenosis of right carotid artery (principal)
CPT/HCPCS: 93880

== ENCOUNTER → 2023-12-20 | Outpatient (CLI) | payer MEDICARE, BC, SELFPAY ==
[2023-12-20 17:03] LABS: Absolute Lymphocyte Count 1.62 X10^3/uL (0.83-4.51); Absolute Neutrophil Count 11.2 X10^3/uL (2.0-7.7); Basophil# 0.05 X10^3/uL; Basophil% 0.4 % (0-1); Eosinophil# 0.04 X10^3/uL; Eosinophils% 0.3 % (0-5); Hematocrit 49.6 % (37-47); Hemoglobin 15.4 g/dL (12.0-15.0); Lymphocyte # 1.62 X10^3/ul (0.83-4.51); Lymphocyte % 11.6 % (19-41); Mean Corpuscular Hgb 26.4 pg (27.0-32.0); Mean Corpuscular Volume 85.1 fL (81-99); Mean Platelet Vol. 10.1 fl (6.2-12.0); Monocyte# 0.96 X10^3/uL; Monocyte% 6.9 % (0-10); NRBC Flagged by Analyzer 0 % (0-5); Neutrophil # 11.17 X10^3/uL (2.7-7.7); Neutrophil % 80.1 % (47-70); POSITIVE MORPHOLOGY YES; Platelet Count 239 K/mm3 (150-450); RBC Distribution Width CV 20.3 % (11.6-14.6); RBC Distribution Width SD 60.5 fl (35.1-43.9); Red Blood Count 5.83 M/mm3 (4.2-5.4); White Blood Count 13.9 K/mm3 (4.4-11.0)
[2023-12-20 17:07] LABS: Differential Indicated SCAN CRITERIA MET
[2023-12-20 17:38] LABS: ALB/GLOB Ratio 1.2 RATIO (0.9-2.4); AST(SGOT) 22 U/L (15-37); Alanine Aminotransfer ALT/SGPT 39 U/L (13-56); Albumin, Serum 3.7 g/dL (3.2-5.0); Alkaline Phosphatase 129 U/L (45-117); Anion Gap 6 (5-15); BUN 23 mg/dL (7-18); Calcium,Total 9.1 mg/dL (8.5-10.1); Chloride 109 mmol/L (98-107); EST Glomerular Filtration Rate 56 mL/min (>60); Est Glom Filt Rate - Afr Amer 68 mL/min (>60); Globulin 3.1 g/dL (2.2-4.2); Glucose 93 mg/dL (74-106); Potassium 4.2 mmol/L (3.5-5.1); Protein, Total 6.8 g/dL (6.4-8.2); Sodium Level 140 mmol/L (136-145)
[2023-12-20 17:56] LABS: Anisocytosis 1+; Differential Comment SCANNED
[2023-12-21 01:51] LABS: BNP,B-Type NATRIURETIC PEPTIDE 1294.7 pg/mL (0-100)
== END | disposition home or self-care (01) ==
LOC: POLAB3 16:44
PROVIDERS: PCP Family Medicine Geriatric Medicine; Visit Provider Family Medicine Geriatric Medicine
DX: I10 Essential (primary) hypertension (principal); R06.02 Shortness of breath
CPT/HCPCS: 36415; 80053; 83880; 85025

== ENCOUNTER → 2023-12-21 | Outpatient (CLI) | payer MEDICARE, BC, SELFPAY ==
--- NOTE | 2023-12-21 10:49 | VDLE_ITS ---
Reason For Study: Bilateral edema RIGHT LEFT GSV is normal. GSV is normal. CFV is compressible, spontaneous, phasic, CFV is compressible, spontaneous, phasic, competent and demonstrates normal competent, and demonstrates normal augmentation. augmentation. FV is compressible, spontaneous, phasic, FV is compressible, spontaneous, phasic, competent and demonstrates normal competent and demonstrates normal augmentation. augmentation. POP V is compressible, spontaneous, phasic, POP V is compressible, spontaneous, phasic, competent and demonstrates normal competent and demonstrates normal augmentation. augmentation. T/P Trunk is compressible. T/P Trunk is compressible. PTV is compressible. PTV is compressible. RT PerV is compressible. LT PerV is compressible. Acute deep vein thrombosis is noted in the [place] V. It is dilated and NONCOMPRESSIBLE. Procedure This is a venous duplex using B-mode, color flow and spectral Doppler. Exam performed in department. A preliminary report was called and/or faxed to [facility]. VL/Venous Duplex US - [place] Extrem Interpretation Summary Acute deep vein thrombosis is noted in the right soleus vein. Deep veins of the left lower extremity are patent and compressible segmentally. There is no evidence of left lower extremity deep vein thrombosis. The left bilateral saphenous vein s appear patent and compressible segmentally. Ordering Physician: Enrike Dobbins Chi Referring Physician: Enrike Dobbins Chi Performed By: Marlen Vides RVT
== END | disposition home or self-care (01) ==
LOC: CVS 10:49
PROVIDERS: PCP Family Medicine Geriatric Medicine; Referring Provider Family Medicine Geriatric Medicine; Visit Provider Family Medicine Geriatric Medicine
DX: R60.0 Localized edema (principal)
CPT/HCPCS: 93970

== ENCOUNTER → 2023-12-31 | Outpatient (CLI) | payer MEDICARE, BC, SELFPAY ==
--- NOTE | 2023-12-31 09:54 | ECHOD_ITS ---
Reason For Study: ISCHEMIC CARDIOMYOPATHY Procedure This was a 2D Doppler, Color Flow transthoracic echocardiogram. Exam performed in department. Left Ventricle Normal size and thickness. Mild generalized hypokinesis. Severe posterior basal and basal to mid lateral hypokinesis to akinesis. Estimated LVEF 40%. Right Ventricle ICD or pacer leads identified within the right ventricle. Atria There is mild biatrial dilatation. Mitral Valve Mild-Moderate (1-2+) mitral valve insufficiency. Tricuspid Valve Moderate (2+) tricuspid valve insufficiency. Right ventricular systolic pressure estimated to be 40 mmHg. Aortic Valve Aortic sclerosis, no stenosis. Pulmonic Valve Mild (1+) pulmonic valve insufficiency. Great Vessels Moderately dilated aortic root. Pericardium/Pleural No pericardial effusion. MMode/2D Measurements & Calculations LVIDd: 5.2 cm IVSd: 1.1 cm LVOT diam: 2.0 cm LVIDs: 4.3 cm LVPWd: 0.73 cm LVOT area: 3.2 cm2 RVDd: 2.6 cm FS: 16.8 % Ao root diam: 4.2 cm asc Aorta Diam: 4.0 cm LAV(MOD-sp4): 40.8 ml LVAd ap4: 27.1 cm2 LVAd ap2: 19.5 cm2 SV(MOD-sp4): 27.1 ml LVLd ap4: 7.4 cm LVLd ap2: 6.4 cm SI(MOD-sp4): 19.1 ml/m2 EDV(MOD-sp4): 82.5 ml EDV(MOD-sp2): 49.2 ml EDV(sp4-el): 83.9 ml EDV(sp2-el): 50.6 ml LVAs ap4: 21.5 cm2 LVAs ap2: 13.9 cm2 LVLs ap4: 6.8 cm LVLs ap2: 6.0 cm ESV(MOD-sp4): 55.3 ml ESV(MOD-sp2): 27.3 ml ESV(sp4-el): 57.5 ml ESV(sp2-el): 27.2 ml EF(MOD-sp4): 32.9 % EF(MOD-sp2): 44.6 % EF(sp4-el): 31.5 % SV(MOD-sp2): 22.0 ml SV(sp4-el): 26.5 ml Ao sinus diam: 3.2 cm SI(MOD-sp2): 15.5 ml/m2 Ao ST Junction: 2.8 cm LA A4 area: 15.0 cm2 LA dimension(2D): 3.6 cm RA A4 area: 12.1 cm2 TAPSE: 1.6 cm Time Measurements MV dec time: 0.23 sec Doppler Measurements & Calculations MV E max joshua: 56.6 cm/sec Lat Peak E' Joshua: 2.9 cm/sec Med Peak E' Joshua: 3.3 cm/sec MV A max joshua: 62.2 cm/sec E/E' lat: 19.5 E/E' med: 17.1 MV E/A: 0.91 MV dec slope: 243.3 cm/sec2 Ao V2 max: 98.7 cm/sec LV V1 max: 62.9 cm/sec Ao max P.9 mmHg LV V1 max P.6 mmHg Ao V2 mean: 68.1 cm/sec LV V1 mean P.92 mmHg Ao mean P.1 mmHg LV V1 mean: 45.3 cm/sec Ao V2 VTI: 19.0 cm LV V1 VTI: 14.3 cm AV (velocity ratio): 0.75 HECTOR(I,D): 2.4 cm2 HECTOR(V,D): 2.0 cm2 SV(LVOT): 45.1 ml PA V2 max: 82.1 cm/sec TR max joshua: 250.5 cm/sec PA max PG (full): 1.9 mmHg TR max P.1 mmHg ECHO/Echo Complete Interpretation Summary Mild generalized hypokinesis. Severe posterior basal and basal to mid lateral h ypokinesis to akinesis. Estimated LVEF 40%. There is mild biatrial dilatation. Mild-Moderate (1-2+) mitral valve insufficiency. Moderate (2+) tricuspid valve insufficiency. Right ventricular systolic pressure estimated to be 40 mmHg. Mild (1+) pulmonic valve insufficiency. Moderately dilated aortic root. Ordering Physician: Trina Tirado Referring Physician: Enrike Dobbins Chi Performed By: Marzena Hamilton RDCS and Student
== END | disposition home or self-care (01) ==
PROVIDERS: PCP Family Medicine Geriatric Medicine; Referring Provider Internal Medicine Cardiovascular Disease; Visit Provider Internal Medicine Cardiovascular Disease
DX: I50.9 Heart failure, unspecified (principal); I25.5 Ischemic cardiomyopathy
CPT/HCPCS: 93306

== ENCOUNTER 2024-01-03 10:47 | Observation (INO) | payer MEDICARE, BC, SELFPAY ==
--- NOTE | 2023-12-31 10:40 | RAD_ITS ---
INDICATION: Pre-Procedure (Heart Cath) EXAMINATION/TECHNIQUE: X-RAY - XR Chest 2 Views COMPARISON: Prior study dated: 02/20/2022 FINDINGS: LINES/DEVICES: Left-sided dual-chamber cardiac pacer device in stable position. LUNGS: No consolidation, edema or effusion. No pneumothorax. Small right upper lobe granuloma. MEDIASTINUM AND CARDIOVASCULAR STRUCTURES: Cardiac silhouette not enlarged. Central airways and mediastinal contour are unremarkable. BONES AND SOFT TISSUES: Unremarkable. RAD/Chest PA and Lateral IMPRESSION: No radiographic evidence of acute cardiopulmonary disease. Electronically Signed: Lg Ayala MD at 9:47 EST ,
[2023-12-31 11:27] LABS: International Normalized Ratio 1.6; Prothrombin Time (Protime)PT. 18.6 SECONDS (11.7-14.9)
[2024-01-02 08:31] VITALS: BMI 21.8
[2024-01-03] VITALS (12 sets, daily range): BP systolic 90–177; BP diastolic 36–109; PULSE 56–68; RESP 16–18; TEMP 36.2–36.4; O2SAT 97–100; BMI 21.0
--- NOTE | 2024-01-03 10:56 | PCM.DC ---
Discharge Instructions Diet Discharge Diet: Low fat / Low cholesterol Activity Discharge Activity: Return to Normal Activity Dressing / Incision Call your doctor if your incision/area has: Continuous Slow Oozing, Sudden Increased Bleeding, Increased Pain/ Swelling, Increased Redness and Foul Smelling Discharge Follow Up Care Please Follow Up With: Trina Tirado MD When: 2-4 weeks Test Results: Test results from this visit will be discussed in further detail at your follow-up appointment, if applicable. Discharge Plan Admission Attending Provider: Trina Tirado Primary Care Provider: Enrike Dobbins Chi Instructions Print Language: Swedish Discharge Orders/Prescriptions Prescriptions: New clopidogrel 75 mg Tablet 75 mg PO DAILY Qty: 30 11RF Continued nitroglycerin 0.4 mg tablet, sublingual 0.4 mg SUBLINGUAL UD MDD Q5min prn PRN (Reason: Cardiac/Chest Pain) Qty: 90 6RF levothyroxine 25 mcg tablet 25 mcg PO DAILY galantamine 4 mg tablet 8 mg PO BIDCM methotrexate sodium 7.5 mg tablet 7.5 mg PO DAILY amiodarone 200 mg tablet 200 mg PO QDAY Qty: 90 3RF metoprolol succinate 100 mg tablet extended release 24 hr 100 mg PO QDAY Qty: 90 3RF Eliquis 5 mg tablet 5 mg PO BID Qty: 60 6RF alprazolam 0.25 MG tablet 0.25 tab PO QHS PRN (Reason: jaw pain) Patient Comments: for jaw, takes in the late evening potassium chloride [Klor-Con M20] 20 mEq tablet,ER particles/crystals 20 meq PO BID atorvastatin 40 mg Tablet 40 mg PO QHS 30 Days Qty: 30 0RF losartan 100 mg Tablet 100 mg PO DAILY 30 Days Qty: 30 0RF hydrochlorothiazide 25 mg tablet See Rx Instructions .ROUTE .COMPLEX Qty: 90 3RF Dose Instruction: TAKE 1 TAB BY MOUTH DAILY Rx Instructions: TAKE 1 TAB BY MOUTH DAILY isosorbide mononitrate 30 mg tablet extended release 24 hr 60 mg PO DAILY Qty: 180 3RF Rx Instructions: Must be white pill not red pill Discontinued aspirin 81 MG tablet,delayed release (DR/EC) 81 mg PO QHS Referrals / Follow Up: Enrike Dobbins Chi, MD [Primary Care Provider] - Disposition Disposition (needs filled in before D/C Order can be placed): Home, Self Care
--- NOTE | 2024-01-03 11:00 | EKG12_ITS ---
Test Reason : Blood Pressure : */* mmHG Vent. Rate : 63 BPM Atrial Rate : 57 BPM P-R Int : 174 ms QRS Dur : 124 ms QT Int : 612 ms P-R-T Axes : 61 -42 219 degrees QTcB Int : 626 ms Critical Test Result: Long QTc Sinus rhythm with Afib with pacing and PVC's Left axis deviation Confirmed by MARINO GRAVES, ANDREW ([id number]), digital editor OXANA KEANE ([id number]) on 01/07/2024 12:36:26 PM Referred By: Trina Tirado Confirmed By: ANDREW PICHARDO MD
--- NOTE | 2024-01-03 11:20 | CL.I_ITS ---
Patient Name: STANLEY RODRIGUEZ Study Date: 01/03/2024 Performing: Trina Tirado MD Ht: 59 inches 149.86 cm : 1940 Wt: 108.1 lbs 48.99 kg Age: 83 Gender: female BSA: 1.42 PROCEDURE(S) PERFORMED DC02-(06232)LHC/COR IC12-([id number])OLIVER W/WO PTCA, SINGLE CORONARY ARTERY CLINICAL PROFILE AND CO-MORBIDITIES Indications: Cardiac Arrythmia Heart Failure: None Stress/Imaging Stress/Image Study Performed: No CAD Presentations: No Sxs, no angina. 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 The risks and benefits of the procedure as well as a full description of our services here and lack of surgical backup were fully explained to the patient and/or their significant other prior to the catheterization. The Timeout was completed, verifying the correct patient and procedure. The patient's procedural site was prepped and draped in the usual fashion. Local anesthetic was given subcutaneously to right radial region with Lidocaine 2%. Using a modified Seldinger technique, arterial access was obtained via the right radial artery, a 6Fr sheath was inserted.. Left Coronary Artery selective angiography was performed in multiple views using a 5 Fr. 4.0 [place] catheter. Right Coronary Artery selective angiography was then performed in multiple views using a 5 Fr. JR 4 catheterThe images were reviewed and options discussed. A decision was then made to proceed with an Intervention, IVUS or other adjunct procedure. XB 3 Guide catheter was inserted and engaged into the LCA. {L1} RUNTHROUGH Guide wire was advanced to the LAD. ISIS FRONTIER 2.5 X 22 Drug Eluting stent was inserted. Drug Eluting stent was advanced across the lesion in the LAD, mid. Angiogram performed pre stent deployment. Angiogram performed post stent deployment. NC EMERGE 3.5 X 15 Balloon catheter was inserted. Balloon catheter was inserted post stent. Angiogram performed post balloon dilatation. Angiogram performed post balloon dilatation. The arterial sheath was pulled and a TR Band was applied for hemostasis 12 ml of air CORONARY ANGIOGRAPHY DOMINANCE: Right Dominant LEFT MAIN: Angiographically normal LEFT ANTERIOR DESCENDING ARTERY: LAD: Tubular 80% Mid lesion in LAD DIAGONAL 1: Tubular 50% Proximal lesion in DIAG1 RIGHT CORONARY ARTERY: RCA: In-Stent Restenosis 40% Proximal lesion in RCA, STENT to 40% Tubular 50% Distal lesion in RCA RT PDA: Tubular 65% Proximal lesion in RT PDA Tubular 70% Ostial lesion in RT PDA INTERVENTION INFORMATION LESION SITE: LAD (Mid) Lesion Complexity: High/C, lesion length: 20 mm Pre Stenosis: 80 % Pre intervention PRIMITIVO flow: 3 PROCEDURE: Drug Eluting Stent with post dilatation Post Stenosis: 0 % Post intervention PRIMITIVO flow: 3 Lesion Devices: Terumo .014 180cm Runthrough Extra Floppy straight Cordis 6 Fr XB3.0 100cm Guide Catheter VideoCare 2.50 x 22 ISIS FRONTIER OLIVER Gamal Sci NC EMERGE MR 3.50x15 BALLOON COMPLICATIONS No Complications PROCEDURE MEDICATIONS Versed 2 mg IV Fentanyl 50 mcg IV Oxygen: 2 L/min via nasal cannula Baby Aspirin (81mg) 1 Tabs PO @ 01/03/2024 08:01:01 Heparin given IA 01/03/2024 09:57:29 Heparin 5000 unit(s) IV 01/03/2024 10:18:50 Nitro 200 mcg IC 01/03/2024 10:25:03 Nitro 200 mcg IC 01/03/2024 10:25:03 Nitro 200 mcg IC 01/03/2024 10:30:52 Plavix 180 mg PO 01/03/2024 10:18:57 Verapamil 2.5mg, Ntg 200mcgs, 2000 units of Heparin given IA 01/03/2024 09:57:29 SUMMARY OF HEMODYNAMIC DATA Time AIR REST ECG 08:03:01 AO 186/87 (122) SA 10:04:52 AO 149/83 (106) 10:05:58 AO 212/96 (138) 10:11:41 AO 185/94 (123) 10:21:29 AO 149/82 (108) 10:27:55 Signed By Trina Tirado MD On 01/03/2024 11:20:15 Trina Tirado MD
[2024-01-03 11:48] LABS: ACT Activated Clotting Time 275 sec (74-137)
[2024-01-03] MEDS: 0.9% Normal Saline (1000mL) 1,000 ML 75 ML IV (11:55)
--- NOTE | 2024-01-03 12:52 | CRPHASE1_ITS ---
Patient Communication Patient Information Former Patient:: Phase I PHII Cardiac Rehab Discussed with Patient:: Yes Guide to Cardiac Rehab Given to Patient:: Yes Cardiac Rehab Facility Choice List Given to Patient:: Yes Communication to Cardiac Rehab Industrial Maintenance Mechanic:: Trina Tirado Sessions:: 36 sessions - 3 days/wk, 12 weeks Cardiac Rehabilitation Info Program Information Cardiac Rehabilitation Program Information: Cardiac Rehab The cardiac rehab team at [facility] consists of highly skilled exercise physiologists, nurses, respiratory therapists and physicians working together with you. Our purpose is to help you have a full recovery and achieve the goals you set for yourself. Over the years many of our patients have returned to activities they assumed they would never do again! We can help restore your confidence and motivation to make lifestyle changes that can have a significant impact on your health and quality of life! We can help answer questions and concerns you may have about exercise, lifestyle, medications, diet, stress and anxiety which are common following a hospitalization. WE monitor ECG and vital signs during exercise and discuss your progress with you and report to your physician(s). Cardiac Rehab is proven to help reduce readmissions, improve functional capacity and lower recurrence of problems with your heart. Our Cardiac Rehab program is Certified by the [place] [employer] of Cardio-Vascular and Pulmonary [employer] (AACVPR) and Accredited by the [place] [employer] through our [facility]. You can contact us at . We invite you to call us with your questions or to get started in our program. If you have other questions or concerns be sure to ask your physician/provider during your follow-up visit. WE look forward to seeing you!
--- NOTE | 2024-01-03 12:53 | CRPH1.INSTRU ---
General Education Discussed with Patient CAD and cardiac anatomy and function:: Patient communicates acknowledgment Explanation of diagnoses and procedures:: Patient communicates acknowledgment Sign/Symptoms of PR:: Patient communicates acknowledgment Antiplatelet therapy: Patient communicates acknowledgment Proper use of NTG-SL: Patient communicates acknowledgment Emergency procedures and activation of EMS: Patient communicates acknowledgment Compliance of all prescribed medications: Patient communicates acknowledgment Smoking Recommendations Recommendations Include:: Previous smoker; encourage continued cessation Response Code Nicotine/Smoking Response Code:: Patient communicates acknowledgment Dyslipidemia Response Code Dyslipidemia Response Code:: Patient communicates acknowledgment Overweight/Obesity Response Code Overweight/Obesity:: Not instructed Comments:: pt is 108 pounds Hypertension Recommendations Recommendations Include:: Maintain BP <130/85, DASH dietary guidelines, Decrease/maintain normal body weight and Moderation of ETOH Response Code Hypertension:: Patient communicates acknowledgment Heart Disease Recommendations Recommendations Include:: Educated family members of their risk and Educated family members of importance of prevention of heart disease Response Code Heart Disease Response Code:: Patient communicates acknowledgment Diabetes Recommendations Recommendations Include:: Maintain fasting blood sugars 70-110 md/dL, Maintain HgbA1c of 6% or less, Monitor blood sugar as prescribed and Diabetic dietary guidelines Response Code Diabetes:: Patient communicates acknowledgment Metabolic Syndrome Risk Factors Patient Metabolic Syndrome Risk Factors Are [3 of 5]:: Fasting blood sugar > 100 mg/dL and Hypertension Recommendations Recommendations Include:: Encouraged follow-up with Primary Care Physician Response Code Metabolic Syndrome Response Code:: Patient communicates acknowledgment Sedentary Risk Factors Patient Sedentary Risk Factors Are:: Lack of regular exercise Recommendations Recommendations Include:: Aerobic exercise 5-7 times/week for 20-30 minutes continuously, Benefits of regular exercise, Discussed home walking program and Monitored Outpatient Cardiac Rehab Response Code Sedentary Response Code:: Patient communicates acknowledgment Stress Recommendations Recommendations Include:: Identification of stressors, and assessment of coping skills and Stress management techniques Response Code Stress Response Code:: Patient communicates acknowledgment
[2024-01-03] MEDS: Galantamine Hydrobromide 4 MG Tablet 8 MG PO (16:41)
[2024-01-03] MEDS: Clopidogrel Bisulfate 300 MG Tablet PO (16:43)
[2024-01-03] MEDS: Atorvastatin Calcium 40 MG Tablet PO (23:10)
[2024-01-03] MEDS: APIXABAN 5 MG TABLET PO (23:11)
[2024-01-04] VITALS (7 sets, daily range): BP systolic 122–187; BP diastolic 59–79; PULSE 63–76; RESP 16–18; TEMP 36.1–36.7; O2SAT 96–100
[2024-01-04] MEDS: amLODIPine 5 MG Tablet PO (00:46)
[2024-01-04] MEDS: Losartan Potassium 100 MG Tablet PO (04:46)
[2024-01-04] MEDS: Levothyroxine 25 MCG TABLET PO (06:38)
[2024-01-04 08:04] LABS: Hematocrit 43.7 % (37-47); Hemoglobin 13.6 g/dL (12.0-15.0); Mean Corp Hgb Conc 31.1 g/dL (32-36); Mean Corpuscular Hgb 26.6 pg (27.0-32.0); Mean Corpuscular Volume 85.4 fL (81-99); Platelet Count 319 K/mm3 (150-450); RBC Distribution Width CV 17.6 % (11.6-14.6); RBC Distribution Width SD 54.9 fl (35.1-43.9); Red Blood Count 5.12 M/mm3 (4.2-5.4); White Blood Count 10.5 K/mm3 (4.4-11.0)
[2024-01-04 08:39] LABS: ALB/GLOB Ratio 1.1 RATIO (0.9-2.4); AST(SGOT) 38 U/L (15-37); Alanine Aminotransfer ALT/SGPT 12 U/L (13-56); Alkaline Phosphatase 105 U/L (45-117); Anion Gap 6 (5-15); BUN 21 mg/dL (7-18); BUN/Creat Ratio 19.8 RATIO (10-20); Calcium,Total 8.7 mg/dL (8.5-10.1); Chloride 108 mmol/L (98-107); Creatinine, Serum 1.06 mg/dL (0.55-1.02); EST Glomerular Filtration Rate 52 mL/min (>60); Est Glom Filt Rate - Afr Amer 63 mL/min (>60); Estimated Creatinine Clearance 28.38 ml/min; Globulin 2.7 g/dL (2.2-4.2); Glucose 89 mg/dL (74-106); Potassium 3.4 mmol/L (3.5-5.1); Protein, Total 5.7 g/dL (6.4-8.2); Sodium Level 139 mmol/L (136-145)
[2024-01-04] MEDS: Amiodarone 200 MG Tablet PO (09:27)
[2024-01-04] MEDS: Potassium Chloride Oral Tablet 20 MEQ PO (09:27)
[2024-01-04] MEDS: Isosorbide Mononitrate 60 MG Tablet PO (09:27)
[2024-01-04] MEDS: Clopidogrel Bisulfate 75 MG Tablet PO (09:27)
[2024-01-04] MEDS: APIXABAN 5 MG TABLET PO (09:27)
[2024-01-04] MEDS: hydroCHLOROthiazide 25 MG Tablet PO (09:27)
[2024-01-04] MEDS: Galantamine Hydrobromide 4 MG Tablet 8 MG PO (09:27)
[2024-01-04] MEDS: Metoprolol(XL)Succ 200 MG Tablet PO (10:01)
--- NOTE | 2024-01-04 10:06 | DCINST_ITS ---
Discharge Instructions Diet Discharge Diet: Low fat / Low cholesterol Dressing / Incision Call your doctor if your incision/area has: Continuous Slow Oozing, Sudden Increased Bleeding, Increased Pain/ Swelling, Increased Redness and Foul Smelling Discharge Follow Up Care Please Follow Up With: Trina Tirado MD Test Results: Test results from this visit will be discussed in further detail at your follow- up appointment, if applicable. Discharge Plan Admission Admit Date/Time: 01/03/24 10:47 Primary Reason for Your Visit: Heart cath Attending Provider: Trina Tirado Primary Care Provider: Enrike Dobbins Chi Instructions Additional Instructions / Restrictions: Do not lift anything greater than 10 pounds for 3 days. You can take the bandage off your wrist tomorrow. We increased your metoprolol to 200 mg daily. You are to stop your aspirin and continue with your Eliquis and clopidogrel. You cannot stop your clopidogrel for any reason for at least 1 year. If you have any bleeding concerns please contact the [facility]. Discharge Orders/Prescriptions Prescriptions: New clopidogrel 75 mg Tablet 75 mg PO DAILY Qty: 30 11RF metoprolol succinate 200 mg Tablet Extended Release 24 Hr 200 mg PO DAILY Qty: 90 3RF Continued nitroglycerin 0.4 mg tablet, sublingual 0.4 mg SUBLINGUAL UD MDD Q5min prn PRN (Reason: Cardiac/Chest Pain) Qty: 90 6RF levothyroxine 25 mcg tablet 25 mcg PO DAILY galantamine 4 mg tablet 8 mg PO BIDCM amiodarone 200 mg tablet 200 mg PO QDAY Qty: 90 3RF metoprolol succinate 100 mg tablet extended release 24 hr 100 mg PO QDAY Qty: 90 3RF Eliquis 5 mg tablet 5 mg PO BID Qty: 60 6RF alprazolam 0.25 MG tablet 0.25 tab PO QHS PRN (Reason: jaw pain) Patient Comments: for jaw, takes in the late evening potassium chloride [Klor-Con M20] 20 mEq tablet,ER particles/crystals 20 meq PO BID atorvastatin 40 mg Tablet 40 mg PO QHS 30 Days Qty: 30 0RF losartan 100 mg Tablet 100 mg PO DAILY 30 Days Qty: 30 0RF hydrochlorothiazide 25 mg tablet See Rx Instructions .ROUTE .COMPLEX Qty: 90 3RF Dose Instruction: TAKE 1 TAB BY MOUTH DAILY Rx Instructions: TAKE 1 TAB BY MOUTH DAILY isosorbide mononitrate 30 mg tablet extended release 24 hr 60 mg PO DAILY Qty: 180 3RF Rx Instructions: Must be white pill not red pill Discontinued aspirin 81 MG tablet,delayed release (DR/EC) 81 mg PO QHS Referrals / Follow Up: Enrike Dobbins Chi, MD [Primary Care Provider] - Angelica Jackson PA [Med Staff - [facility]] - Disposition Disposition (needs filled in before D/C Order can be placed): Home, Self Care
--- NOTE | 2024-01-04 11:27 | CASEMGMT ---
BEBO MILLER NOTE: Discharge order is in. BEBO MILLER to room. Introduced self and role. Pt to discharge home on Plavix, which has been delivered to pt's room from [facility] retail pharmacy. Pt states she lives alone, is independent, and drives. She states she usually does not use any AD to ambulate, but occasionally will use walker @ home. She denies need for any further DME. She states her nephew, Kuldip, will be taking her home @ dc. Pt states I'm on a lot of medications and it's a lot to remember. Discussed CCN and pt interested in referral. She states her nephew's partner is a nurse and can assist her, but she is also interested in talking w/someone from [facility]. Referral made. Pt also provided w/[facility]N's rac card/contact info and she voices appreciation. She denies having other discharge needs/concerns. Rafal SIMENTAL RN, CM
--- NOTE | 2024-01-04 14:21 | PHA.DC_ITS ---
Pharmacy [facility] has performed discharge medication reconciliation and counseling for this patient. The patient's discharge medication list was reviewed for discrepancies and discrepancies were resolved. The patient was counseled on the following discharge medications and changes in medications for homegoing were reviewed. 1. PLAVIX 2. DISCONTINUATION OF ASPIRIN The Reason for Use, instructions for use, and potential side effects were reviewed for all new medications. The patient's questions regarding all of their medications were answered. The patient was able to verbally demonstrate an understanding of their discharge medications. Medications at Discharge Home Medications alprazolam 0.25 mg tablet 0.25 tab PO QHS PRN jaw pain 05/24/16 nitroglycerin 0.4 mg sublingual tablet 0.4 mg sublingual UD PRN Cardiac/Chest Pain #90 tabs 02/03/22 levothyroxine 25 mcg tablet 25 mcg PO DAILY HYPOTHYROID 10/16/22 hydrochlorothiazide 25 mg tablet See Rx Instructions .Route .COMPLEX HYPERTENSION #90 TABLETS 04/24/23 isosorbide mononitrate 30 mg tablet,extended release 24 hr 60 mg (2 x 30 mg) PO DAILY heart #180 tabs 04/25/23 potassium chloride 20 mEq tablet,extended release(part/cryst) (Klor-Con M) 20 meq PO BID HYPOKALEMIA 05/23/23 atorvastatin 40 mg tablet 40 mg PO QHS cholesterol 30 days #30 tabs 06/27/23 losartan 100 mg tablet 100 mg PO DAILY blood pressure 30 days #30 tabs 06/27/23 galantamine 4 mg tablet 8 mg PO BIDCM memory 08/01/23 amiodarone 200 mg tablet 200 mg PO QDAY heart rhythm #90 tabs 11/28/23 metoprolol succinate 100 mg tablet,extended release 24 hr 100 mg PO QDAY heart #90 tabs 12/24/23 apixaban 5 mg tablet (Eliquis) 5 mg PO BID blood thinner #60 tabs 01/03/24 clopidogrel 75 mg tablet 75 mg PO DAILY #30 tabs 01/03/24 metoprolol succinate 200 mg tablet,extended release 24 hr 200 mg PO DAILY #90 tabs 01/04/24
--- NOTE | 2024-01-07 10:12 | CCN.REFER ---
LM W/ SON TO DISCUSS CCN SERVICES. AWAITING CALL BACK.
--- NOTE | 2024-01-08 09:36 | CCN.REFER ---
PATIENT AGREEABLE TO CCN SERVICES.
== END 2024-01-04 10:00 | disposition home or self-care (01) ==
LOC: CLSP 10:57 → PCU 11:06
PROVIDERS: Admitting Provider Internal Medicine Cardiovascular Disease; PCP Family Medicine Geriatric Medicine; Referring Provider Internal Medicine Cardiovascular Disease; Visit Provider Internal Medicine Cardiovascular Disease
DX: R07.9 Chest pain, unspecified (principal); F03.90 Unspecified dementia, unspecified severity, without behavioral disturbance, psychotic disturbance, mood disturbance, and anxiety; I48.0 Paroxysmal atrial fibrillation; I47.20 Ventricular tachycardia, unspecified; D45 Polycythemia vera; Z95.810 Presence of automatic (implantable) cardiac defibrillator; E03.9 Hypothyroidism, unspecified; Z79.899 Other long term (current) drug therapy; Z79.890 Hormone replacement therapy; Z79.82 Long term (current) use of aspirin; E78.5 Hyperlipidemia, unspecified; M19.90 Unspecified osteoarthritis, unspecified site; F17.210 Nicotine dependence, cigarettes, uncomplicated; I10 Essential (primary) hypertension; I25.5 Ischemic cardiomyopathy
CPT/HCPCS: 36415; 71046; 80053; 85027; 85347; 85610; 92928; 93005; 93454; 96360; 96361; 99152; 99153; 99221; C1769; J7030; J7040; Q9967; C1725; C1874; C1887; C1894; C9600; G0378

== ENCOUNTER 2024-01-14 13:45 | Outpatient (RCR) | payer MEDICARE, BC, SELFPAY ==
--- NOTE | 2024-01-14 16:33 | HP.PTEVAL ---
Patient's Visit Information Visit Information Visit Information: STANLEY RODRIGUEZ is a 83 year old F referred to Physical Therapy by Dr. Felice Goldstein MD with a diagnosis of LBP and L LE radiculopathy. Date of Evaluation: 01/14/24 Physical Therapist: Geronimo Gong, PT, ATC Visit Plan Frequency: 2x /Week Duration: 4-6 Weeks Plan: SKTC/DKTC, core stab ex's, postural edu, and HEP Subjective Subjective: Pt reports she has had L leg pain for several months. Pt reports she has had several cortisone injections in her LB which really helped for a while. But the pain has gradually returned and it is bad right now. Pt reports she does not really have any back pain, but complains of pain radiating from her L hip region to the foot. Pt reports she has occasional sleep difficulty secondary to her L leg pain. Pt reports she always gets increased pain with standing and walking. Pt reports her pain goes away when she sits down. Pt reports she has stairs at home that she has to use, and negotiates them one step at a time sideways. Pt reports she is limited with most activity around her house as she gets increased pain with most activity. 0/10 pain while sitting here in the clinic, 9/10 at worst (when she is walking). Pain LBP and L leg: Pain Intensity (Out of 10): 0 Pain Intensity Range: 9 Objective Objective: Neuro: B LE sensation is WNL to light touch MMT: R LE is 5/5 throughout while L LE is grossly 4-/5 throughout ROM: Pt is severely limited with L/S extension ROM. All other ranges are WNL Repeated movements: SKTC/DKTC 3 x 10 sec ea decreased L leg pain TU seconds Balance/Special Test Scores Lower Extremity Functional Score: 46 Goals Goal 1:: Decrease LBP x 50% to aid with sleep Goal Time Frame: 4-6 Weeks Goal 2:: Decrease the frequency and intensity of L LE radiculopathy x 50% to aid with ambulation Goal Time Frame: 4-6 Weeks Goal 3:: Increase L LE strength x 1 grade to aid with ambulation Goal Time Frame: 4-6 Weeks Goal 4:: I with HEP Goal Time Frame: 4-6 Weeks Rehabilitation Potential Physical Therapy Diagnosis: Pt has LBP, L LE radiculopathy, and difficulty with ambulation secondary to degenerative changes in L/S Rehabilitation Potential: Good Anticipated Interventions Patient/Client Instruction: Educate patient on: Condition and Plan of Care For the Purpose of:: To improve self management Therapeutic Exercise to Include: Strength training, Balance training, Agility training, Postural training, Gait and locomotor training and Dynamic Lumbar Stabilization For the Purpose of:: To decrease pain, To increase ROM and To improve muscle performance and motor function Cryotherapy (ice pack, ice massage): Yes Thermo therapy (hot pack): Yes For the Purpose of:: To decrease pain Text: Thank you for the opportunity to evaluate your patient. For Medicare and Medicare HMO plans, please review the plan of care and approve it. It will need to be FAXED BACK to us at [phone] for Medicare purposes. For Medicare only, by signing this I certify the plan of care. Please let me know if there are questions or concerns regarding this plan of care. Physician Signature: Date:
--- NOTE | 2024-04-07 12:26 | HP.PT.NRP ---
Patient Information Patient Information: STANLEY RODRIGUEZ was seen in my office for initial evaluation on 01/14/24. The following Plan of Care was established for this patient: POC Established Initial Frequency: 2x /Week Initial Duration: 4-6 Weeks Anticipated Interventions Patient/Client Instruction: Educate patient on: Condition and Plan of Care For the Purpose of:: To improve self management Therapeutic Exercise to Include: Strength training, Balance training, Agility training, Postural training, Gait and locomotor training and Dynamic Lumbar Stabilization For the Purpose of:: To decrease pain, To increase ROM and To improve muscle performance and motor function Cryotherapy (ice pack, ice massage): Yes Thermo therapy (hot pack): Yes For the Purpose of:: To decrease pain Last Seen Last Seen: This patient was last seen in our office . Pertinent comments regarding their Physical therapy will appear below: Pt has not returned for physical therapy for greater than 30 days and is discontinued at this time. At this point I will be discontinuing this patient from physical therapy. I would be happy to see this patient again in the future if found appropriate by the physician. Thank you! Geronimo Gong, PT, ATC Balance/Gait/Functional tests Balance/Special Test Scores Lower Extremity Functional Score: 46
== END 2024-01-14 19:00 | disposition home or self-care (01) ==
LOC: PT 13:45
PROVIDERS: PCP Family Medicine Geriatric Medicine; Referring Provider Anesthesiology; Visit Provider Anesthesiology
DX: M54.16 Radiculopathy, lumbar region (principal); M79.605 Pain in left leg
CPT/HCPCS: 97161

== ENCOUNTER → 2024-01-17 | Outpatient (CLI) | payer MEDICARE, BC, SELFPAY ==
[2024-01-17 16:28] LABS: Absolute Lymphocyte Count 1.64 X10^3/uL (0.83-4.51); Basophil# 0.07 X10^3/uL; Basophil% 0.6 % (0-1); Eosinophil# 0.03 X10^3/uL; Eosinophils% 0.2 % (0-5); Hematocrit 46.2 % (37-47); Hemoglobin 14.3 g/dL (12.0-15.0); Lymphocyte # 1.64 X10^3/ul (0.83-4.51); Mean Corpuscular Volume 87.3 fL (81-99); Mean Platelet Vol. 9.7 fl (6.2-12.0); Monocyte# 0.86 X10^3/uL; Monocyte% 6.8 % (0-10); NRBC Flagged by Analyzer 0 % (0-5); Neutrophil # 9.98 X10^3/uL (2.7-7.7); Neutrophil % 78.8 % (47-70); Platelet Count 345 K/mm3 (150-450); RBC Distribution Width SD 56.8 fl (35.1-43.9); Red Blood Count 5.29 M/mm3 (4.2-5.4); White Blood Count 12.7 K/mm3 (4.4-11.0)
[2024-01-17 17:14] LABS: ALB/GLOB Ratio 1.2 RATIO (0.9-2.4); AST(SGOT) 42 U/L (15-37); Alanine Aminotransfer ALT/SGPT 43 U/L (13-56); Albumin, Serum 3.6 g/dL (3.2-5.0); Alkaline Phosphatase 124 U/L (45-117); Anion Gap 6 (5-15); BUN 28 mg/dL (7-18); BUN/Creat Ratio 22.4 RATIO (10-20); Calcium,Total 8.6 mg/dL (8.5-10.1); Chloride 113 mmol/L (98-107); Creatinine, Serum 1.25 mg/dL (0.55-1.02); EST Glomerular Filtration Rate 43 mL/min (>60); Est Glom Filt Rate - Afr Amer 53 mL/min (>60); Glucose 110 mg/dL (74-106); Potassium 4.4 mmol/L (3.5-5.1); Protein, Total 6.6 g/dL (6.4-8.2); Sodium Level 143 mmol/L (136-145); Uric Acid 5.2 mg/dL (2.6-6.0)
== END | disposition home or self-care (01) ==
LOC: POLAB3 16:04
PROVIDERS: PCP Family Medicine Geriatric Medicine; Visit Provider Family Medicine Geriatric Medicine
DX: I10 Essential (primary) hypertension (principal); M10.9 Gout, unspecified; E55.9 Vitamin D deficiency, unspecified
CPT/HCPCS: 36415; 80053; 82306; 84443; 84550; 85025

== ENCOUNTER 2024-04-03 16:24 | Inpatient (IN) | payer MEDICARE, BC, SELFPAY ==
[2024-04-03] VITALS (15 sets, daily range): BP systolic 144–195; BP diastolic 83–151; PULSE 55–97; RESP 13–29; TEMP 34.3–37.3; O2SAT 96–100; BMI 18.6; BMI 18.2
--- NOTE | 2024-04-03 16:47 | CT_ITS ---
PROCEDURE: CT BRAIN WITHOUT CONTRAST REASON FOR EXAM: Patient found in bathtub. TECHNIQUE: Contiguous axial scans of 3.75 mm slice thicknesses with sagittal and coronal reconstruction images. One or more dose reduction techniques were utilized (e.g., automated exposure control, adjustment of mA and/or kv according to patient size, use of iterative reconstruction technique). COMPARISON: CTA HEAD AND NECK DATED 04/10/2023. FINDINGS: No intraparenchymal hemorrhage. Mild encephalomalacia in the region of the posterior limb of the right internal capsule. Central white matter and subcortical diffuse hypoattenuation. No mass effect or midline shift. Ventricles and cisterns are appropriate size for patient's age. Age-appropriate senescent change. No extra-axial fluid collections. Mild atrophic changes of the cerebellum. No cerebellar hemorrhage or space- occupying lesions. Paranasal sinuses normal. Mastoid air cells are normal. Atherosclerotic calcific disease in the carotid siphons. Calvarium unremarkable. Soft tissues unremarkable. CT/Brain/Head without Contrast IMPRESSION: 1. Chronic microvascular ischemic changes. 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 2. No acute hemorrhage or ischemic infarctions. 3. Age-appropriate senescent change. Reading Location: [facility]
--- NOTE | 2024-04-03 16:48 | EKG12_ITS ---
Test Reason : VTACH Blood Pressure : */* mmHG Vent. Rate : 115 BPM Atrial Rate : 208 BPM P-R Int : * ms QRS Dur : 162 ms QT Int : 278 ms P-R-T Axes : * 269 -55 degrees QTcB Int : 384 ms Normal sinus rhythm with NSVT Non-specific intra-ventricular conduction block Abnormal ECG Confirmed by MARINO GRAVES, ANDREW ([id number]), managing editor OXANA KEANE ([id number]) on 04/05/2024 8:03:16 AM Referred By: Ryan Galicia Confirmed By: ANDREW PICHARDO MD
--- NOTE | 2024-04-03 16:59 | US_ITS ---
EXAM: VENOUS DUPLEX IMAG/NAKUL EXTREM CLINICAL HISTORY: Swelling. COMPARISON: None. TECHNIQUE: Grayscale, color flow and doppler analysis of the bilateral lower extremity deep venous system. FINDINGS: There is no intraluminal echogenicity to suggest acute or chronic deep venous thrombosis. Appropriate respiratory variation, augmentation and venous compression is noted. US/Venous Duplex Imag/Nakul Extrem IMPRESSION: No sonographic evidence of a deep venous thrombosis. Reading Location: [id number]
[2024-04-03 17:06] LABS: Hematocrit 53.3 % (37-47); Hemoglobin 16.8 g/dL (12.0-15.0); Mean Corp Hgb Conc 31.5 g/dL (32-36); Mean Corpuscular Hgb 26.2 pg (27.0-32.0); Mean Platelet Vol. 10.3 fl (6.2-12.0); POSITIVE MORPHOLOGY YES; Platelet Count 234 K/mm3 (150-450); RBC Distribution Width CV 20.1 % (11.6-14.6); RBC Distribution Width SD 56.4 fl (35.1-43.9); Red Blood Count 6.42 M/mm3 (4.2-5.4); White Blood Count 10.9 K/mm3 (4.4-11.0)
[2024-04-03] MEDS: 0.9% Normal Saline (1000mL) 1,000 ML 1000 ML IV (17:07)
--- NOTE | 2024-04-03 17:09 | EDS_ITS ---
HPI HPI - Fall History of Present Illness Chief Complaint: Fall Narrative Narrative: Chief complaint and HPI: Weakness. 83-year-old female with past medical history of HTN, HLD, CAD, HLD, atrial fibrillation on Eliquis, history of DVT, dementia who presents for evaluation of weakness and found down. Patient is intermittently confused and therefore history taken by patient as well as family members. Patient states that she she was in the bathtub with her walker outside the tub when she could not get up and get out. Patient states that she thinks she was only in the bathtub for 3 hours. Family disagrees with this. They state they think the patient has been in the bathtub for about 3 days as patient has not responded to phone calls. Patient was found in an empty bathtub with urine. Patient states she is hungry and thirsty. She endorses diffuse b odyaches. She denies any fever, shortness of breath, cough, abdominal pain, nausea, vomiting. Review of systems: See HPI Medications: As listed on the chart Allergies: As listed on the chart PFSH: Per chart Vital signs: As listed on the chart. Reviewed. Physical exam: Gen: A&O x2, intermittently confused but patient does have history of dementia Head: Normocephalic, atraumatic Eyes: No sclera icterus, conjunctiva clear, PERRL, EOMI ENT: TMs clear BL, very dry mucous membranes, no facial tenderness or injury Neck: Trachea midline, No JVD, Nontender but limited range of motion states she feels that her neck is stuck in extension but can move in flexion CV: RRR, no murmurs, no chest wall TTP, AICD Resp: Lungs CTA BL, no w/r/c GI: Abd soft, non-distended, non-tender, no r/r/g Musc: Moves all extremities no deformity, no spinal TTP, no manuel step-offs, multiple pressure sores on the back, generalized weakness, bilateral peripheral lower extremity edema-right worse than left Skin: Cool, odorous of urine Neuro: Alert, grossly intact, sensation intact Psych: Cooperative [facility] Medical History Loss of hearing Thyroid disease Smoker History of atrial fibrillation Hypothyroidism Carotid stenosis, right History of atrial fibrillation Preoperative cardiovascular examination Wears glasses Wears dentures Cancer Anxiety Back pain Bladder disease High cholesterol TIA (transient ischemic attack) Difficulty chewing Former smoker History of echocardiogram History of stress test History of pacemaker Cardiology follow-up encounter History of heart attack History of irregular heartbeat Aneurysm, carotid artery, internal Carotid stenosis, right Rash Essential hypertension Leukocytosis Paroxysmal atrial fibrillation Presence of stent in coronary artery (~10/02/17) Essential hypertension Atrial fibrillation ICD (implantable cardioverter-defibrillator) discharge Chest pain Chronic dental infection Abnormal stress test GI bleed Hypokalemia Bladder cancer Atherosclerotic heart disease of [place] coronary artery without angina pectoris Ischemic cardiomyopathy Ventricular tachycardia Presence of cardiac defibrillator (~2005) Long-term use of high-risk medication Tobacco abuse Erythrocytosis Old myocardial infarction (~1997) Back problem Arthritis Bladder tumor Polycythemia vera Hypocalcemia Hyperlipidemia Cellulitis of right upper extremity 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 Polycythemia Home Medications ?Medication ?Instructions ?Recorded ?Last Taken ?Type alprazolam 0.25 mg tablet 0.25 tab PO QHS PRN jaw pain 05/24/16 06/12/23 History hydrochlorothiazide 25 mg tablet See Rx Instructions . Route 04/24/23 06/11/23 Rx .COMPLEX HYPERTENSION #90 TABLETS isosorbide mononitrate 30 mg 60 mg (2 x 30 mg) PO CARTER Y heart 04/25/23 06/12/23 Rx tablet,extended release 24 hr #180 tabs potassium chloride 20 mEq 20 meq PO BID HYPOKALEMIA 06/11/23 History tablet,extended release(part/cryst) (Klor-Con M) atorvastatin 40 mg tablet 40 mg PO QHS cholesterol 30 days 06/27/23 Unknown Rx #30 tabs losartan 100 mg tablet 100 mg PO DAILY blood pressu re 30 06/27/23 Unknown Rx days #30 tabs galantamine 4 mg tablet 8 mg PO BIDCM memory 4 Unknown History amiodarone 200 mg tablet 200 mg PO QDAY heart rhythm #90 11/28/23 Unknown Rx tabs apixaban 5 mg tablet (Eliquis) 5 mg PO BID blood thinn er #60 tabs 01/03/24 Unknown Rx clopidogrel 75 mg tablet 75 mg PO DAILY #90 tabs 07/19 Unknown Rx nitroglycerin 0.4 mg sublingual 0.4 mg sublingual UD P RN 01/31/24 Unknown Rx tablet Cardiac/Chest Pain #25 tabs levothyroxine 50 mcg tablet 50 mcg PO QDAY 02/04/24 Un known History mirtazapine 7.5 mg tablet 7.5 mg PO QHS 02/04/24 Unkno wn History cholecalciferol (vitamin D3) 25 25 mcg PO DAILY Unknown History mcg (1,000 unit) tablet metoprolol succinate 200 mg 200 mg PO DAILY 04/03/24 U nknown History tablet,extended release 24 hr Allergy/AdvReac Type Severity Reaction Status Date / Time doxazosin (From Cardura) AdvReac Severe Itching Verified 04/03/24 16:25 Influenza Virus Vaccines AdvReac Severe Other Verified 04/03/24 16:25 Family History Mother Heart disease Myocardial infarction Brother Cancer CAD (coronary artery disease) Brother CAD (coronary artery disease) Brother CAD (coronary artery disease) Surgical History History of cardiac catheterization History of bladder surgery History of carotid endarterectomy History of right-sided carotid endarterectomy History of implantable cardiac defibrillator (ICD) Presence of coronary angioplasty implant and graft (01/03/24) History of cataract extraction History of back surgery History of cholecystectomy History of mandibular surgery History of mandibular surgery ICD SURGERY History of back surgery Hx of cholecystectomy H/O cataract extraction Social History household members: none Smoking Status: Current some day smoker tobacco type: cigarettes how long ago did patient quit smokin years ago alcohol intake: current alcohol intake frequency: holidays/special occasions only Alcohol type: wine caffeine: Yes Type: coffee Number of servings: 4 EXAM Physical Exam Const Vital Signs: 04/03/24 16:24 04/03/24 16:26 04/03/24 16:45 Temperature 98 F 93.7 F L Temperature Source Oral Rectal Pulse Rate 72 69 Respiratory Rate 20 H 20 H Respiratory Effort Respiratory Depth Respiratory Pattern Blood Pressure 188/151 H 195/105 H Blood Pressure Mean 163 135 Blood Pressure Source Pulse Ox 99 100 Oxygen Delivery Method Room Air Room Air 04/03/24 17:04 04/03/24 17:09 04/03/24 17:09 Temperature 96.4 F L 97.4 F L 97.5 F L Temperature Source Core Core Pulse Rate 97 Respiratory Rate 21 H Respiratory Effort Normal Non-Labored Respiratory Depth Normal Respiratory Pattern Normal Blood Pressure 174/92 H Blood Pressure Mean 119 Blood Pressure Source Pulse Ox 100 100 Oxygen Delivery Method Room Air Room Air 04/03/24 17:14 04/03/24 18:00 04/03/24 19:00 Temperature 97.7 F L Temperature Source Core Pulse Rate 59 L 55 L Respiratory Rate 16 15 Respiratory Effort Respiratory Depth Respiratory Pattern Blood Pressure 181/86 H 170/104 H Blood Pressure Mean 117 126 Blood Pressure Source Pulse Ox 96 100 Oxygen Delivery Method Room Air Room Air 04/03/24 20:00 04/03/24 20:12 04/03/24 20:22 Temperature 99.2 F H 99.1 F 99 F Temperature Source Core Core Core Pulse Rate 67 69 60 Respiratory Rate 21 H 29 H 16 Respiratory Effort Respiratory Depth Respiratory Pattern Blood Pressure 183/98 H 183/98 H 183/91 H Blood Pressure Mean 126 126 121 Blood Pressure Source Monitor Monitor Pulse Ox 100 100 100 Oxygen Delivery Method Room Air Room Air Room Air MDM MDM MDM Narrative Medical decision making narrative: 83-year-old female with past medical history of HTN, HLD, CAD, HLD, atrial fibrillation on Eliquis, history of DVT, dementia who presents for evaluation of weakness and found down in the bathtub. Patient has multiple pressure wounds and odorous of urine. Rectal temperature 93.7 degrees. Daya hugger placed with warm blankets. Will place temperature Grant and give 1 L warm saline. Differ ential diagnosis includes but is not limited to YAIMA, electrolyte abnormality, rhabdomyolysis, UTI, ACS, anemia. Given that it is unclear if patient fell in the bathtub we will get CT head and neck. Extensive laboratory workup ordered. Patient's bilateral lower extremity swelling may be secondary to dependent swelling from being in the bathtub however given her history of DVT and her not being able to take her blood thinners while laying in the bathtub will get bilateral venous duplex ultrasounds. EKG and chest x-ray reviewed see below. Lactic acid 3.1. Another NS bolus ordered. CBC without leukocytosis. Patient has hemoconcentration at 16.8. This is likely secondary to dehydration. Platelets unremarkable. Awaiting patient's CMP and electrolytes. Venous duplex negative for DVT. CT head with chronic microvascular ischemic changes. 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 CT of the cervical spine shows multilevel spondylosis and degenerative disc disease. Otherwise no acute findings. While is away seeing another patient it was reported by nursing that patient had an unresponsible episode with shaking. This was short-lived. Patient now alert and back to baseline. I did not witness this. This may have been a seizure however cannot confirm. Given patient has no history of seizures will not give antiepileptic at this time. Will continue to monitor. I still do not have the CMP or electrolytes back for the patient. We called lab multiple times. They are now stating that they have lost the blood. We will redraw this. UA negative for UTI. While waiting laboratory results patient developed ventricular tachycardia. As I was walking to the room nursing reports that she had become unresponsive for multiple seconds. By the time I got into the room patient's ventricular tachycardia has resolved. She is alert and talking at baseline. She denies being shocked by her ICD. Patient was placed on cardiac pads. Bolused with amiodarone and placed on amiodarone drip. Will get EKG, troponin, VBG, lactic acid. Patient just had repeat labs drawn for electrolytes therefore these were not ordered. Nursing as well as myself called multiple times to the lab stating that was emergent and that we needed these labs are resulted. They state they are currently running. EKGs reviewed. CMP shows hyponatremia at 146 and hy pokalemia of 2.9. 40 mg of IV potassium ordered. Will hold off on p.o. replacement given patient's episode of ventricular tachycardia. Patient has mild renal insufficiency of 1.06. Mild AST transaminitis.. Patient has hyperbilirubinemia of 2.1. Suspect this is secondary to dehydration. Patient has hypophosphatemia at 1.8. K-Phos ordered. This will also help with her potassium. Magnesium level unremarkable. CPK elevated at 598. Patient has rhabdomyolysis. Repeat lactic acid 2.1 and downtrending. Troponin 173 prior to ventricular tachycardia. 188 after. This is likely secondary to her episode of ventricular tachycardia. Patient not having any chest pain. Will continue to monitor. VBG without acidosis. Patient will warrant admission to the hospital. I spoke with Dr. Azul. She would like me to reach out to cardiology given patient's episode of ventricular tachycardia. We will interrogate the ICD. She accepted admission to the ICU. I spoke with Dr. Sanchez with cardiology, no further recommendations at this time. On chart review, patient does follow with Dr. Tirado. Her last cardiac catheterization was in December 2023 in which she received a drug-eluting stent. Patient's ICD report resulted and patient had an episode of ventricular fibrillation as well as ventricular tachycardia. She received multiple shocks for each arrhythmia. Dr. Azul was updated with this information. Patient as well as POA confirmed that patient is full code. EKG: Interpreted by me/EM physician: EKG shows ventricular paced rhythm with PVCs. Heart rate 61. Artifact. Diagnostic: Interpreted by me/EM physician: Chest x-ray without pneumonia, effusion, cardiomegaly, pneumothorax 60 minutes of critical care time utilized in managing the patient. This is due to high probability of and deterioration of the patient based on the patient's condition and excludes any separately billable procedures. Impression: 1. Unresponsive episode with ventricular tachycardia, defibrillated with ICD 2. Rhabdomyolysis 3. Lactic acidosis, multifactorial but likely secondary to dehydration 4. Hypokalemia 5. Hypophosphatemia 6. Hypernatremia 7. Hyperkalemia 8. Renal insufficiency 9. Hyperbilirubinemia 10. AST transaminitis 11. Generalized weakness Lab Data Labs: Laboratory Results - last 24 hr 04/03/24 04/03/24 04/03/24 16:35 16:54 20:05 WBC 10.9 RBC 6.42 H Hgb 16.8 H Hct 53.3 H MCV 83.0 MCH 26.2 L MCHC 31.5 L RDW Std Deviation 56.4 H RDW Coeff of Hood 20.1 H Plt Count 234 MPV 10.3 Neut % (Auto) Not Reportable Absolute Neuts (auto) 8.3 H Absolute Lymphs (auto) 2.20 Total Counted 100 Neutrophils % (Manual) 76 H Lymphocytes % (Manual) 20 Monocytes % (Manual) 3 Myelocytes % 1 H Diff Path Review May foll Reactive Lymphocytes 2+ Plt Morphology Comment CLUMPED Polychromasia 2+ Anisocytosis 2+ [place] Cells 1+ PT 16.3 H INR 1.3 APTT 27.3 Sodium 146 H Potassium 2.9 L Chloride 110 H Carbon Dioxide 27.0 Anion Gap 9 BUN 24 H Creatinine 1.06 H Estim Creat Clear Calc 28.88 Est GFR (MDRD) Af Amer 63 Est GFR (MDRD) Non-Af 52 L BUN/Creatinine Ratio 22.6 H Glucose 77 Lactic Acid 3.1 H* 2.1 H* Calcium 8.9 Phosphorus 1.8 L Magnesium 2.0 Total Bilirubin 2.10 H AST 65 H ALT 26 Alkaline Phosphatase 102 Total Creatine Kinase 598 H Troponin I High Sens 173 H* 188 H* Total Protein 6.6 Albumin 3.3 Globulin 3.3 Albumin/Globulin Ratio 1.0 Urine Color Urine Clarity Urine pH Ur Specific [place] Urine Protein Urine Glucose (UA) Urine Ketones Urine Occult Blood Urine Nitrite Urine Bilirubin Urine Urobilinogen Ur Leukocyte Esterase Urine RBC Urine WBC Ur Squamous Epith Cells Urine Bacteria Hyaline Casts Urine Mucus POC Glucose 60 L 04/03/24 20:08 WBC RBC Hgb Hct MCV MCH MCHC RDW Std Deviation RDW Coeff of Hood Plt Count MPV Neut % (Auto) Absolute Neuts (auto) Absolute Lymphs (auto) Total Counted Neutrophils % (Manual) Lymphocytes % (Manual) Monocytes % (Manual) Myelocytes % Diff Path Review Reactive Lymphocytes Plt Morphology Comment Polychromasia Anisocytosis Octavio Cells PT INR APTT Sodium Potassium Chloride Carbon Dioxide Anion Gap BUN Creatinine Estim Creat Clear Calc Est GFR (MDRD) Af Amer Est GFR (MDRD) Non-Af BUN/Creatinine Ratio Glucose Lactic Acid Calcium Phosphorus Magnesium Total Bilirubin AST ALT Alkaline Phosphatase Total Creatine Kinase Troponin I High Sens Total Protein Albumin Globulin Albumin/Globulin Ratio Urine Color Yellow Urine Clarity Clear Urine pH 6.0 Ur Specific [place] 1.015 Urine Protein 100 H Urine Glucose (UA) Normal Urine Ketones 5 H Urine Occult Blood 50 H Urine Nitrite Negative Urine Bilirubin Negative Urine Urobilinogen Normal Ur Leukocyte Esterase Negative Urine RBC 0-5 SEEN Urine WBC 0-5 SEEN Ur Squamous Epith Cells 0-5 SEEN Urine Bacteria 0 SEEN Hyaline Casts 0-5 SEEN Urine Mucus 1+ POC Glucose ABG Data ABG results: ABG 04/03/24 20:36 Specimen Type JOSE Sample Site Not entered VBG pH 7.40 VBG pO2 34 VBG HCO3 22 VBG Total CO2 23 VBG O2 Sat (Calc) 66 VBG Base Excess -3 L POC Mix VBG pCO2 Pt Tmp 35.2 L O2 Delivery Device Not entered Radiography Diagnostic Testing: Clinical Impression(s) from Imaging Studies Brain CT 04/03/24 16:47 IMPRESSION: 1. Chronic microvascular ischemic changes. 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 2. No acute hemorrhage or ischemic infarctions. 3. Age-appropriate senescent change. Reading Location: [facility] Venous Duplex 04/03/24 16:59 IMPRESSION: No sonographic evidence of a deep venous thrombosis. Reading Location: [facility] Cervical Spine CT 04/03/24 17:18 IMPRESSION: 1. No acute osseous abnormalities involving the cervical spine. 2. Multilevel spondylosis and degenerative disc disease. 3. No central canal narrowing. 4. Nonacute findings detailed above. Reading Location: [facility] Chest X-Ray 04/03/24 17:40 IMPRESSION: NEGATIVE SINGLE VIEW OF THE CHEST. Reading Location: [facility] Discharge Plan Disposition Disposition: Acute Care Hospital [facility] Discharge Date/Time: 04/03/24 23:16
[2024-04-03 17:12] LABS: Bedside Glucose 60 mg/dL (74-106)
--- NOTE | 2024-04-03 17:18 | CT_ITS ---
PROCEDURE: CT CERVICAL SPINE WITHOUT CONTRAST REASON FOR EXAM: PATIENT FOUND IN BATH. HISTORY OF DEMENTIA. TECHNIQUE: Contiguous axial scans of 2.5 mm slice thicknesses without intravenous contrast. Sagittal and coronal reconstruction images were also obtained. One or more dose reduction techniques were used (e.g., Automated exposure control, adjustment of the mA and/or kV according to patient size, use of iterative reconstruction technique). COMPARISON: CT cervical spine dated 03/01/2020 FINDINGS: Alignment: Normal. C1-C2: Stable. Degenerative arthritic changes, moderate. Vertebrae: No acute fracture multilevel spondylosis at C4 through T2. Discs: Multilevel disc space narrowing, most severe at C5 through T2. Facets: Multilevel bilateral facet arthropathy with degenerative cystic changes. Foramina: No evidence of foraminal narrowing. Stenosis: No central canal narrowing. Vascular structures: Atherosclerotic calcific disease of the left carotid. Metallic clips on the right side of the neck may be related to endarterectomy. Mild right carotid atherosclerotic calcifications. Soft Tissues: Remaining soft tissues unremarkable. CT/Spine Cervical without Contras IMPRESSION: 1. No acute osseous abnormalities involving the cervical spine. 2. Multilevel spondylosis and degenerative disc disease. 3. No central canal narrowing. 4. Nonacute findings detailed above. Reading Location: [facility]
--- NOTE | 2024-04-03 17:40 | RAD_ITS ---
PROCEDURE: CHEST 1 VIEW (PORTABLE) REASON FOR EXAM: Confusion. TECHNIQUE: Frontal view of the chest. COMPARISON: 12/31/2023. FINDINGS: The cardiac and mediastinal contours are normal. The lungs are clear. Left chest ICD. RAD/Chest 1 View (Portable) IMPRESSION: NEGATIVE SINGLE VIEW OF THE CHEST. Reading Location: [id number]
[2024-04-03 17:45] LABS: International Normalized Ratio 1.3; Partial Thromboplast Time 27.3 Seconds (24.1-36.2); Prothrombin Time (Protime)PT. 16.3 SECONDS (11.7-14.9)
--- NOTE | 2024-04-03 17:45 | ED.RN ---
pt had <1 min episode of posturing and shaking. not responding. then started responding but confused for few minutes and then oriented talking and back to baseline. aware of episode
[2024-04-03 17:57] LABS: Lactic Acid 3.1 mmol/L (0.4-1.9)
--- NOTE | 2024-04-03 18:14 | EKG12_ITS ---
Test Reason : Blood Pressure : */* mmHG Vent. Rate : 61 BPM Atrial Rate : 53 BPM P-R Int : * ms QRS Dur : 192 ms QT Int : 786 ms P-R-T Axes : * -82 96 degrees QTcB Int : 791 ms Ventricular-paced rhythm with occasional Premature ventricular complexes Abnormal ECG Confirmed by MARINO GRAVES, ANDREW ([id number]), managing editor OXANA KEANE ([id number]) on 04/05/2024 8:05:42 AM Referred By: Ryan Galicia Confirmed By: ANDREW PICHARDO MD
[2024-04-03 18:37] LABS: Differential Indicated MANUAL DIFF
[2024-04-03 18:46] LABS: Lymphocyte 20 % (19-41); Monocyte 3 % (0-10); Myelocyte 1 % (0-0); Neutrophil-Segmented 76 % (47-70); Total Cells Counted 100 (MANUAL DIFF)
[2024-04-03 18:47] LABS: Platelet Morphology CLUMPED; Polychromasia 2+; Reactive Lymphocyte 2+
[2024-04-03 18:48] LABS: Anisocytosis 2+; Burr Cells 1+
[2024-04-03 18:49] LABS: Absolute Neutrophil Count 8.3 X10^3/uL (2.0-7.7)
--- NOTE | 2024-04-03 19:21 | ED.RN ---
CALLED LAB TO DETERMINE HOW MUCH LONGER BMP LAB HAD LEFT TO BE RESULTED. STATED THAT THE TUBE WAS NOT RUN AND COULD NOT BE LOCATED. STATED TUBE WOULD BE LOOKED FOR AND WOULD CALL BACK IF TUBE IS NOT FOUND.
--- NOTE | 2024-04-03 19:49 | EKG12_ITS ---
Test Reason : VTACH Blood Pressure : */* mmHG Vent. Rate : 88 BPM Atrial Rate : 70 BPM P-R Int : 154 ms QRS Dur : 126 ms QT Int : 618 ms P-R-T Axes : 54 -39 238 degrees QTcB Int : 747 ms Critical Test Result: Long QTc Sinus rhythm with NSVT Left axis deviation Left ventricular hypertrophy with QRS widening ( Sokolow-Sol , Khari product , Romhilt-Montano ) Cannot rule out Anteroseptal infarct , age undetermined Marked T-wave abnormality, consider inferolateral ischemia Abnormal ECG Confirmed by MARINO GRAVES, ANDREW ([id number]), magazine editor OXANA KEANE ([id number]) on 04/05/2024 8:03:41 AM Referred By: Ryan Galicia Confirmed By: ANDREW PICHARDO MD
[2024-04-03] MEDS: 0.9% Normal Saline (1000mL) 1,000 ML 999 ML IV (19:57)
[2024-04-03] MEDS: Amiodarone 150 MG in Dextrose 5%-Water (100mL Bag) 100 ML 600 MG IV BOLUS (20:12)
[2024-04-03 20:14] LABS: Bacteria 0 SEEN /hpf (None Seen)
[2024-04-03 20:18] LABS: AST(SGOT) 65 U/L (15-37); Alanine Aminotransfer ALT/SGPT 26 U/L (13-56); Albumin, Serum 3.3 g/dL (3.2-5.0); Alkaline Phosphatase 102 U/L (45-117); Anion Gap 9 (5-15); BUN 24 mg/dL (7-18); BUN/Creat Ratio 22.6 RATIO (10-20); CPK Total, Creatine Kinase 598 U/L (26-192); Calcium,Total 8.9 mg/dL (8.5-10.1); Chloride 110 mmol/L (98-107); Creatinine, Serum 1.06 mg/dL (0.55-1.02); EST Glomerular Filtration Rate 52 mL/min (>60); Est Glom Filt Rate - Afr Amer 63 mL/min (>60); Estimated Creatinine Clearance 28.88 ml/min; Globulin 3.3 g/dL (2.2-4.2); Glucose 77 mg/dL (74-106); Phosphorus 1.8 mg/dL (2.5-4.9); Potassium 2.9 mmol/L (3.5-5.1); Protein, Total 6.6 g/dL (6.4-8.2); Sodium Level 146 mmol/L (136-145); Troponin-I HS 173 pg/mL (3.0-54.0)
[2024-04-03] MEDS: Amiodarone 360 MG in Dextrose 5% Viaflo Bag 192.8 ML 33.3 MG CONT INF (20:22)
[2024-04-03 20:29] LABS: Color, Urine Yellow (Yellow); Glucose, Dipstick Normal (Normal); Ketone-Dipstick 5 mg/dl (Negative); Leukocyte Esterase-Dipstick Negative /ul (Negative); Nitrite-Dipstick Negative (Negative); Occult Blood-Urine 50 /ul (Negative); Protein-Dipstick 100 mg/dl (Negative); Specific Gravity, Urine 1.015 (1.002-1.030); Urine Bilirubin Dipstick Negative (Negative); Urine Clarity Clear (Clear); Urine Urobilinogen Normal (Normal)
[2024-04-03 20:40] LABS: Blood Gas Specimen Type VEN; O2 Delivery Device Not entered; SITE Not entered; VBG BASE EXCESS -3 mmol/L (-1.0-3.5); VBG Bicarbonate 22 mmol/L (22-26); VBG PO2 34 mmHg (25-40); VBG SO2 66 % (50-70); VBG TCO2 23 mmol/L (23-33); VBG pCO2 35.2 mmHg (41-51)
[2024-04-03 20:47] LABS: Troponin-I HS 188 pg/mL (3.0-54.0)
[2024-04-03] MEDS: Potassium Phosphate 30 MM in 0.9% Normal Saline (250mL Bag) 250 ML 42 MM IV (20:54)
--- NOTE | 2024-04-03 20:57 | PCM.HP.STD ---
HPI - General General Date of Admission: 04/03/24 Date of Service: 04/03/24 Chief Complaint: Prolonged downtime, debility, weakness, unresponsive episode in the ED with VT. HPI Narrative The patient is an 83-year-old female with past medical history anxiety and depression, history of previous VTE, CKD stage III per GFR trending unclear subtype, PAF, hypothyroidism, PAF, anxiety and depression, history CVA/TIA, CAD status post PCI/ischemic cardiomyopathy, GERD with history of previous GI bleed, tobacco use, hypertension, hyperlipidemia, history of previous VT status post ICD placement, gout, carotid disease status post right-sided carotid endarterectomy, Alzheimer's disease with unclear dementia component with unclear behavior disturbance component who presents to the [facility] ED on 04/03/2024 with history of significant debility, weakness found down intermittently confused reporting that she been in the bathtub with her walker outside the tub when she did not get up and out possibly for several hours however family believes that she was in the bathtub potentially for days as patient not been responding to phone calls found by EMS in the bathtub disheveled and covered in urine noted to be hungry and thirsty with diffuse body aches. She denies any recent illness otherwise. Workup in the ED included T98, heart rate 69, BP 195/105, respiratory rate 20, 100% on room air with most recent repeat vital signs T99 core, heart rate 60, BP 183/91, respiratory rate 16, 100% room air, initial troponin 173 with repeat pending per ED, CBC with WC 10.9, hemoglobin 16.8, MCV 83, platelet 234 with left shift, coags with PT 16.3 otherwise unremarkable, initial lactic acid 3.1 with repeat pending per ED, CMP with sodium 146, calcium 2.9, chloride 100, CT of the brain with chronic microvascular ischemic changes with suspected remote lacunar infarct in the posterior limb, right internal capsule with age-appropriate senescent changes with no acute intracranial findings, bilateral lower extremity duplex ultrasound negative, CT cervical spine with no acute osseous abnormality, multilevel spondylosis and degenerative disc disease, no central canal narrowing, chest x-ray with no acute cardiopulmonary findings, noted left chest ICD in place, EKG with initial SR but while in the ED had episode of VT and was unresponsive for seconds, potentially 5 seconds, noted to be awake and talking immediately afterwards. In the ED patient administered potassium phosphate 30 mm IV x 1, potassium 40 mill equivalent IV, amiodarone bolus and drip also initiated, administered additionally 2 L normal saline. ED discussed case with Dr. Sanchez. [facility] Medical History Loss of hearing Thyroid disease Smoker History of atrial fibrillation Hypothyroidism Carotid stenosis, right History of atrial fibrillation Preoperative cardiovascular examination Wears glasses Wears dentures Cancer Anxiety Back pain Bladder disease High cholesterol TIA (transient ischemic attack) Difficulty chewing Former smoker History of echocardiogram History of stress test History of pacemaker Cardiology follow-up encounter History of heart attack History of irregular heartbeat Aneurysm, carotid artery, internal Carotid stenosis, right Rash Essential hypertension Leukocytosis Paroxysmal atrial fibrillation Presence of stent in coronary artery (~10/02/17) Essential hypertension Atrial fibrillation ICD (implantable cardioverter-defibrillator) discharge Chest pain Chronic dental infection Abnormal stress test GI bleed Hypokalemia Bladder cancer Atherosclerotic heart disease of [place] coronary artery without angina pectoris Ischemic cardiomyopathy Ventricular tachycardia Presence of cardiac defibrillator (~2005) Long-term use of high-risk medication Tobacco abuse Erythrocytosis Old myocardial infarction (~1997) Back problem Arthritis Bladder tumor Polycythemia vera Hypocalcemia Hyperlipidemia Cellulitis of right upper extremity 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 Polycythemia Home Medications ?Medication ?Instructions ?Recorded ?Last Taken ?Type alprazolam 0.25 mg tablet 0.25 tab PO QHS PRN jaw pain 05/24/16 06/12/23 History hydrochlorothiazide 25 mg tablet See Rx Instructions .Route 04/24/23 06/11/23 Rx .COMPLEX HYPERTENSION #90 TABLETS isosorbide mononitrate 30 mg 60 mg (2 x 30 mg) PO DAILY heart 04/25/23 06/12/23 Rx tablet,extended release 24 hr #180 tabs potassium chloride 20 mEq 20 meq PO BID HYPOKALEMIA 05/23/23 06/11/23 History tablet,extended release(part/cryst) (Klor-Con M) atorvastatin 40 mg tablet 40 mg PO QHS cholesterol 30 days 06/27/23 Unknown Rx #30 tabs losartan 100 mg tablet 100 mg PO DAILY blood pressure 30 06/27/23 Unknown Rx days #30 tabs galantamine 4 mg tablet 8 mg PO BIDCM memory 08/01/23 Unknown History amiodarone 200 mg tablet 200 mg PO QDAY heart rhythm #90 11/28/23 Unknown Rx tabs apixaban 5 mg tablet (Eliquis) 5 mg PO BID blood thinner #60 tabs 01/03/24 Unknown Rx clopidogrel 75 mg tablet 75 mg PO DAILY #90 tabs 01/31/24 Unknown Rx nitroglycerin 0.4 mg sublingual 0.4 mg sublingual UD PRN 01/31/24 Unknown Rx tablet Cardiac/Chest Pain #25 tabs levothyroxine 50 mcg tablet 50 mcg PO QDAY 02/04/24 Unknown History mirtazapine 7.5 mg tablet 7.5 mg PO QHS 02/04/24 Unknown History cholecalciferol (vitamin D3) 25 25 mcg PO DAILY 04/03/24 Unknown History mcg (1,000 unit) tablet metoprolol succinate 200 mg 200 mg PO DAILY 04/03/24 Unknown History tablet,extended release 24 hr Allergy/AdvReac Type Severity Reaction Status Date / Time doxazosin (From [employer]) AdvReac Severe Itching Verified 04/03/24 16:25 Influenza Virus Vaccines AdvReac Severe Other Verified 04/03/24 16:25 Family History Mother Heart disease Myocardial infarction Brother Cancer CAD (coronary artery disease) Brother CAD (coronary artery disease) Brother CAD (coronary artery disease) Surgical History History of cardiac catheterization History of bladder surgery History of carotid endarterectomy History of right-sided carotid endarterectomy History of implantable cardiac defibrillator (ICD) Presence of coronary angioplasty implant and graft (01/03/24) History of cataract extraction History of back surgery History of cholecystectomy History of mandibular surgery History of mandibular surgery ICD SURGERY History of back surgery Hx of cholecystectomy H/O cataract extraction Social History household members: none Smoking Status: Current some day smoker tobacco type: cigarettes how long ago did patient quit smokin years ago alcohol intake: current alcohol intake frequency: holidays/special occasions only Alcohol type: wine caffeine: Yes Type: coffee Number of servings: 4 ROS ROS Narrative Admission Review of Systems: CONSTITUTIONAL: No weight loss, fever, chills, +weakness or fatigue. HEENT: Eyes: No visual loss, blurred vision, double vision or yellow sclerae. Ears, Nose, Throat: No hearing loss, sneezing, congestion, runny nose or sore throat. SKIN: No rash or itching, lesions, wounds except + stage ecchymoses, abrasions with recent prolonged downtime. CARDIOVASCULAR: + Episode of unresponsiveness in the ED with evident VT. Chronic lower extremity distal ankle pitting edema. No chest pain, chest pressure or chest discomfort, palpitations, edema, orthopnea. RESPIRATORY: No shortness of breath, cough or sputum, wheezing, hemoptysis. GASTROINTESTINAL: No anorexia, nausea, vomiting or diarrhea, abdominal pain, melena, BRBPR. GENITOURINARY: No dysuria, frequency, urgency or retention. NEUROLOGICAL: + Unresponsive episode. Alzheimer's disease with underlying dementia of unclear extent and unclear behavioral disturbance history. No headache, dizziness, paralysis, ataxia, numbness or tingling in the extremities, focal weakness, change in bowel or bladder control, seizure. MUSCULOSKELETAL: + muscle, back pain, joint pain or stiffness. HEMATOLOGIC: No anemia. + Easy bleeding/bruising. LYMPHATICS: No enlarged nodes. No history of splenectomy. PSYCHIATRIC: + History of anxiety and depression. ENDOCRINOLOGIC: No reports of sweating, cold or heat intolerance. No polyuria or polydipsia. ALLERGIES: No history of asthma, hives, eczema or rhinitis. Vital Signs Vital Signs Vital Signs: 04/03/24 16:24 04/03/24 16:26 04/03/24 16:45 Temperature 98 F 93.7 F L Temperature Source Oral Rectal Pulse Rate 72 69 Respiratory Rate 20 H 20 H Respiratory Effort Respiratory Depth Respiratory Pattern Blood Pressure 188/151 H 195/105 H Blood Pressure Mean 163 135 Blood Pressure Source Pulse Ox 99 100 Oxygen Delivery Method Room Air Room Air 04/03/24 17:04 04/03/24 17:09 04/03/24 17:09 Temperature 96.4 F L 97.4 F L 97.5 F L Temperature Source Core Core Pulse Rate 97 Respiratory Rate 21 H Respiratory Effort Normal Non-Labored Respiratory Depth Normal Respiratory Pattern Normal Blood Pressure 174/92 H Blood Pressure Mean 119 Blood Pressure Source Pulse Ox 100 100 Oxygen Delivery Method Room Air Room Air 04/03/24 17:14 04/03/24 18:00 04/03/24 19:00 Temperature 97.7 F L Temperature Source Core Pulse Rate 59 L 55 L Respiratory Rate 16 15 Respiratory Effort Respiratory Depth Respiratory Pattern Blood Pressure 181/86 H 170/104 H Blood Pressure Mean 117 126 Blood Pressure Source Pulse Ox 96 100 Oxygen Delivery Method Room Air Room Air 04/03/24 20:00 04/03/24 20:12 04/03/24 20:22 Temperature 99.2 F H 99.1 F 99 F Temperature Source Core Core Core Pulse Rate 67 69 60 Respiratory Rate 21 H 29 H 16 Respiratory Effort Respiratory Depth Respiratory Pattern Blood Pressure 183/98 H 183/98 H 183/91 H Blood Pressure Mean 126 126 121 Blood Pressure Source Monitor Monitor Pulse Ox 100 100 100 Oxygen Delivery Method Room Air Room Air Room Air Weight Weight: 102 lb 1.184 oz Body Mass Index (BMI) 18.6 Physical Exam Narrative Physical Examination: General: Awake, alert, oriented to self, place, month and year, does have underlying dementia however and during conversation mentions her at home who is actually , currently following commands, appears significantly dehydrated, denies any chest pain or dyspnea. Skin: Normal color, normal turgor, no icterus, no cyanosis except for significant various staged ecchymoses, abrasions especially with recent downtime and anticoagulation. HEENT: AT/NC, EOMI, PERRLA, severely dry MM, no carotid bruits or JVD noted. Lungs: Diminished, greater bases, poor effort, no rales, ronchi or wheezing. Heart: Irregular; no gallop, rub audible. Abdomen: Soft, thin cachectic habitus, NTTP, ND, mildly hyperactive BS, no appreciated HSM. Extremities: No cyanosis, no clubbing, pedal to mid costello 2+ pitting edema. Neurological: Patient awake, alert, oriented as noted, cognitive function suspect near baseline intact but does have underlying dementia with some memory impairment; pupils equally reactive to light and accommodation, cranial nerves gross normal, moving all 4 extremities, no focal deficits, strength severely globally decreased Psychiatric: Affect appears fatigued, no acute evidence of depressive or anxiety feelings but does have underlying history. Results Lab / Micro Data 04/03/24 16:35 04/03/24 16:35 Labs: Laboratory Results - last 24 hr 04/03/24 16:35: WBC 10.9, RBC 6.42 H, Hgb 16.8 H, Hct 53.3 H, MCV 83.0, MCH 26.2 L, MCHC 31.5 L, RDW Std Deviation 56.4 H, RDW Coeff of Hood 20.1 H, Plt Count 234, MPV 10.3, Neut % (Auto) Not Reportable, Absolute Neuts (auto) 8.3 H, Absolute Lymphs (auto) 2.20, Total Counted 100, Neutrophils % (Manual) 76 H, Lymphocytes % (Manual) 20, Monocytes % (Manual) 3, Myelocytes % 1 H, Diff Path Review May foll, Reactive Lymphocytes 2+, Plt Morphology Comment CLUMPED, Polychromasia 2+, Anisocytosis 2+, Octavio Cells 1+, PT 16.3 H, INR 1.3, APTT 27.3, Sodium 146 H, Potassium 2.9 L, Chloride 110 H, Carbon Dioxide 27.0, Anion Gap 9, BUN 24 H, Creatinine 1.06 H, Estim Creat Clear Calc 28.88, Est GFR (MDRD) Af Amer 63, Est GFR (MDRD) Non-Af 52 L, BUN/Creatinine Ratio 22.6 H, Glucose 77, Lactic Acid 3.1 H*, Calcium 8.9, Phosphorus 1.8 L, Magnesium 2.0, Total Bilirubin 2.10 H, AST 65 H, ALT 26, Alkaline Phosphatase 102, Total Creatine Kinase 598 H, Troponin I High Sens 173 H*, Total Protein 6.6, Albumin 3.3, Globulin 3.3, Albumin/Globulin Ratio 1.0 04/03/24 16:54: POC Glucose 60 L 04/03/24 20:05: Troponin I High Sens 188 H* 04/03/24 20:08: Urine Color Yellow, Urine Clarity Clear, Urine pH 6.0, Ur Specific [place] 1.015, Urine Protein 100 H, Urine Glucose (UA) Normal, Urine Ketones 5 H, Urine Occult Blood 50 H, Urine Nitrite Negative, Urine Bilirubin Negative, Urine Urobilinogen Normal, Ur Leukocyte Esterase Negative ABG Data ABG results: ABG 04/03/24 20:36 Specimen Type JOSE Sample Site Not entered VBG pH 7.40 VBG pO2 34 VBG HCO3 22 VBG Total CO2 23 VBG O2 Sat (Calc) 66 VBG Base Excess -3 L POC Mix VBG pCO2 Pt Tmp 35.2 L O2 Delivery Device Not entered Imaging Radiology Impression Brain CT 04/03/24 16:47 IMPRESSION: 1. Chronic microvascular ischemic changes. 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 2. No acute hemorrhage or ischemic infarctions. 3. Age-appropriate senescent change. Reading Location: [facility] Venous Duplex 04/03/24 16:59 IMPRESSION: No sonographic evidence of a deep venous thrombosis. Reading Location: [facility] Cervical Spine CT 04/03/24 17:18 IMPRESSION: 1. No acute osseous abnormalities involving the cervical spine. 2. Multilevel spondylosis and degenerative disc disease. 3. No central canal narrowing. 4. Nonacute findings detailed above. Reading Location: [facility] Chest X-Ray 04/03/24 17:40 IMPRESSION: NEGATIVE SINGLE VIEW OF THE CHEST. Reading Location: [facility] Assessment & Plan Assessment/Plan (1) Rhabdomyolysis: (2) Unresponsive episode: (3) Ventricular tachycardia: PLAN: Plan The patient is an 83-year-old female with past medical history anxiety and depression, history of previous VTE, CKD stage III per GFR trending unclear subtype, PAF, hypothyroidism, PAF, anxiety and depression, history CVA/TIA, CAD status post PCI/ischemic cardiomyopathy, GERD with history of previous GI bleed, tobacco use, hypertension, hyperlipidemia, history of previous VT status post ICD placement, gout, carotid disease status post right-sided carotid endarterectomy, Alzheimer's disease with unclear dementia component with unclear behavior disturbance component who presents to the [facility] ED on 04/03/2024 with history of significant debility, weakness found down intermittently confused reporting that she been in the bathtub with her walker outside the tub when she did not get up and out possibly for several hours however family believes that she was in the bathtub potentially for days as patient not been responding to phone calls found by EMS in the bathtub disheveled and covered in urine noted to be hungry and thirsty with diffuse body aches. #1. Unresponsive episode with VT w/ notable electrolyte imbalances with associated significant debility, weakness, adult failure to thrive complicated by recent prolonged downtime as noted below: EKG in ED w/ paced but had episode in the ED with noted unresponsive status for seconds, potentially 5 seconds, noted to be awake and talking immediately afterwards. Patient administered amiodarone bolus and transition to drip in ED. Will admit to ICU, maintain on telemetry, obtain cardiac enzyme serial set although given episode of VT suspect that enzymes will be elevated, magnesium level normal, being supplemented potassium and phosphorus, most recent echo noted 12/31/2023 with mild generalized hypokinesis, severe posterior basal and basal to mid lateral hypokinesis to akinesis, LVEF 40%, mild biatrial dilatation, mild to moderate MVI, moderate TVI, RVSP 40 mmHg, mild PVI, moderately dilated aortic root but given current presentation will request repeat echocardiogram. Will continue amiodarone drip. Will continue chronic Eliquis regimen. Additionally will maintain on fall and aspiration cautions, continue hydration and evaluation as noted below, will obtain procalcitonin to ensure not elevated and missing a potential infectious etiology, if elevated would obtain blood cultures and will await urinalysis is not returned yet, continue to correct electrolytes, PT/OT/case management consulted for discharge planning. ED notes intention to interrogate AICD, especially given that it did not go off. Cardiology consulted and evaluation pending. #2. Lactic acidosis, suspect multifactorial, likely secondary to significant dehydration: No obvious source of infection although urinalysis is pending upon request evaluation of patient, evidence of at least mild rhabdo, initial lactic acid 3.1, hydrating as noted per ED, will continue, trending lactic acid per facility protocol. #3. Indeterminate cardiac enzyme of unclear significance, suspect related to VT episode as noted above: Admission troponin 173, EKG atrial fibrillation with RVR, chest x-ray not marked appearing, will maintain on telemetry and continue to cycle cardiac enzymes, magnesium level normal, will continue to correct electrolytes, if enzymes rise further low threshold to obtain echocardiogram but given current status as noted will request repeat echocardiogram. #4. Rhabdomyolysis, mild: Admission total creatinine kinase 598, will continue hydration with noted mild liver function changes, fortunately stable renal function, monitor I's and O's, repeat CMP in a.m., will repeat total creatinine kinase also in AM, encourage positional changes and offloading. #5. Hypernatremia/hyperchloremia, suspected dehydrated status, concentrated: Admission CMP with sodium 146, chloride 110, hemoglobin also elevated 16.8 although does have chart reported polycythemia vera but again this is higher than previously noted, will continue induration, repeat CBC, CMP in AM. #6. Hyperbilirubinemia, mild transaminitis: Admission total bilirubin 2.10, AST/ALT 65/26, suspect secondary to presentation as noted #1, dehydration, will continue hydration repeat CMP in AM. #7. Hypophosphatemia: Admission phosphorus per ED 1.8, supplementation given, repeat levels in AM. #8. Hypokalemia: Admission K+ 2.9, magnesium level per ED 2.0, supplementation given, repeat level in AM. #9. Alzheimer's disease with unclear dementia components and unclear behavioral disturbance history: Complicates presentation, maintain on fall precautions, continue galantamine home regimen, PT/OT/case management consulted for discharge planning. #10. History CVA/TIA: Noted findings on CT head likely remote stroke, will continue Plavix, Eliquis, statin, hypertensive regimen as noted. #11. History of previous VTE: Noted history of DVT, continued on Eliquis regimen. #12. Tobacco Abuse: Encouraged cessation, inpatient consultation per RT, NR if desired. #13. Chronic Kidney Disease Stage III, unclear subtype per GFR trend: Admission BUN/Cr 24/1.06, GFR 52, baseline renal function primarily 1.0-1.2, repeat BMP in AM. #14. CAD: status post previous PCI, continue patient Plavix, statin, apixaban, metoprolol, losartan home regimen. #15. Carotid disease: Status post right sided carotid endarterectomy, continue Plavix, apixaban, statin, hypertensive regimen as noted. #16. Anxiety and depression: Continue patient home mirtazapine and low-dose as needed alprazolam regimen cautiously with hold for sedation. #17. Hypertension: Continue home regimen including metoprolol, losartan, isosorbide with hold parameters as needed, temporarily holding diuretic, PRN hydralazine. #18. Hyperlipidemia: We will continue patient on statin therapy. #19. PAF: Continue patient home amiodarone, metoprolol and apixaban regimen. #20. Severe protein calorie malnutrition: Evidenced by significantly reduced BMI, obvious muscle and fat loss, nutrition consult for recommendations. #21. DVT prophylaxis: Continue patient home Eliquis regimen. #22. CODE status: Patient AMMY is her nephew and living will is currently in place. Discussed CODE status at length including difference between FULL code, DNR-CCA and DNR-CC status. Following discussions about the differences in these status, requested full CODE STATUS despite underlying comorbidities and history which was discussed. Advanced Care Planning Face to Face Time: 16 minutes. Charges/Coding Visit Charges Inpatient E&M: 56533 Init Hosp L3 Procedures Hospitalists Procedures: 77241 Advncd Care Plan 30 Min
[2024-04-03 21:00] LABS: Reflex Lactate? Y
[2024-04-03] MEDS: Potassium Chloride 10mEq/100mL 10 MEQ/100 ML IV.SOLN. 100 MEQ IV BOLUS ×3 (21:18→23:51)
[2024-04-03 21:19] LABS: Lactic Acid 2.1 mmol/L (0.4-1.9)
[2024-04-03 21:21] LABS: Hyaline Cast 0-5 SEEN /lpf (0-5); Mucous, Urine 1+ /hpf (<or=2+); Red Blood Cells-Urine 0-5 SEEN /hpf (0-5); Squamous Epithelial Cells - UA 0-5 SEEN /hpf (5-10); White Blood Cells 0-5 SEEN /hpf (0-5)
--- NOTE | 2024-04-03 21:40 | ED.RN ---
RN in room to start another IV. Pt stated that she felt a hot flash monitor not reading appropriately. RN fixed EKG leads. Pt then stated that feeling went olga. RN out of room to obtain IV fluids. Pt stated she felt that way again, this RN noticed arrhythmias on monitor. Called out for RT for EKG. Pt began to shake and was unresponsive. E. Smart RN into room, this RN to obtain crash cart. Upon arrival, pt more alert. EKG paced. Placed pads on pt. pt on continuous EKG. Dr. Quinn made aware, into room. Amiodarone ordered.
--- NOTE | 2024-04-03 21:48 | ED.RN ---
This RN clarified order for potassium phos and potassium chloride with Dr. Quinn. Was told that it is appropriate for both to be running at the same time. Verified with pharmacy that it is safe to run both at the same time. was told it is safe but to verify with Dr. Quinn.
[2024-04-03 21:54] LABS: Lactic Acid 1.9 mmol/L (0.4-1.9)
[2024-04-03 22:06] LABS: Procalcitonin 0.13 ng/mL (0.00-0.09)
--- NOTE | 2024-04-03 23:28 | ECHOL_ITS ---
Reason For Study: Arrhythmia Left Ventricle Normal LV size. The left ventricular ejection fraction is 45 %. Mild to moderate segmental systolic dysfunction (see wall motion). Mid-Lateral : Akinetic. Mid-Posterior: Hypokinetic. Infero-Basal: Akinetic. Posterior-Basal: Akinetic. The rest of the wall segments are normal. Right Ventricle Normal RV size. ICD or pacer leads identified within the right ventricle. Normal systolic function. Atria Normal left atrium. Normal right atrium. Mitral Valve Normal mitral valve. Mild (1+) mitral valve insufficiency. Tricuspid Valve Normal tricuspid valve. Mild tricuspid valve insufficiency. Pulmonary artery systolic pressure is 26 mmHg. Aortic Valve Trisinus/trileaflet aortic valve. Mild focal aortic valve thickening. Great Vessels Normal aortic root. The pulmonary artery is normal size. Inferior vena cava collapse with sniff. Pericardium/Pleural No pericardial effusion. MMode/2D Measurements & Calculations LVIDd: 5.2 cm IVSd: 1.1 cm LVAd ap4: 25.5 cm2 LVIDs: 4.0 cm LVPWd: 0.91 cm LVLd ap4: 7.0 cm FS: 22.1 % EDV(MOD-sp4): 77.5 ml EDV(sp4-el): 78.9 ml LVAs ap4: 17.3 cm2 LVLs ap4: 5.8 cm ESV(MOD-sp4): 46.9 ml ESV(sp4-el): 44.2 ml EF(MOD-sp4): 39.5 % EF(sp4-el): 44.0 % _ SV(MOD-sp4): 30.6 ml SV(MOD-sp2): 27.1 ml LVAd ap2: 25.2 cm2 LVLd ap2: 7.7 cm SI(MOD-sp4): 21.7 ml/m2 SI(MOD-sp2): 19.2 ml/m2 EDV(MOD-sp2): 67.7 ml EDV(sp2-el): 70.1 ml LVAs ap2: 18.9 cm2 LVLs ap2: 7.3 cm ESV(MOD-sp2): 40.7 ml ESV(sp2-el): 41.6 ml EF(MOD-sp2): 40.0 % _ SV(sp4-el): 34.7 ml Doppler Measurements & Calculations TR max ashley: 240.7 cm/sec TR max P.2 mmHg ECHO/Echo, Limited Study Interpretation Summary Normal LV size. The left ventricular ejection fraction is 45 %. Mild to moderate segmental systolic dysfunction (see wall motion). Mild (1+) mitral valve insufficiency. Pulmonary artery systolic pressure is 26 mmHg. Ordering Physician: Marielos Azul Referring Physician: Enrike Dobbins Chi Performed By: Nannette Jeffrey, ZEHRA, RVT
[2024-04-04] VITALS (26 sets, daily range): BP systolic 82–165; BP diastolic 50–89; PULSE 55–60; RESP 13–24; TEMP 36.5–38.1; O2SAT 96–99; BMI 18.2
[2024-04-04] MEDS: Menthol/Lanolin/Calamine/Znox 113 GM Tube 1 APPLIC TOPICAL ×5 (00:06→22:14)
[2024-04-04] MEDS: 0.9% Normal Saline (1000mL) 1,000 ML 100 ML IV (00:06)
[2024-04-04 00:09] LABS: Reflex Lactate? Y
[2024-04-04] MEDS: Potassium Chloride 10mEq/100mL 10 MEQ/100 ML IV.SOLN. 100 MEQ IV BOLUS (00:59)
[2024-04-04 01:43] LABS: Lactic Acid 2.1 mmol/L (0.4-1.9); Troponin-I HS 148 pg/mL (3.0-54.0)
[2024-04-04] MEDS: Amiodarone 360 MG in Dextrose 5% Viaflo Bag 192.8 ML 16.7 MG CONT INF ×2 (02:36→16:00)
[2024-04-04] MEDS: 0.9% Saline Lock 10 ML Syringe IV (02:39)
[2024-04-04 03:19] LABS: Troponin-I HS 151 pg/mL (3.0-54.0)
[2024-04-04 06:43] LABS: Absolute Lymphocyte Count 1.55 X10^3/uL (0.83-4.51); Absolute Neutrophil Count 6.7 X10^3/uL (2.0-7.7); Basophil# 0.05 X10^3/uL; Basophil% 0.5 % (0-1); Eosinophil# 0.03 X10^3/uL; Eosinophils% 0.3 % (0-5); Hematocrit 43.5 % (37-47); Hemoglobin 13.9 g/dL (12.0-15.0); Lymphocyte # 1.55 X10^3/ul (0.83-4.51); Lymphocyte % 16.7 % (19-41); Mean Corpuscular Hgb 26.4 pg (27.0-32.0); Mean Corpuscular Volume 82.5 fL (81-99); Mean Platelet Vol. 10.5 fl (6.2-12.0); Monocyte# 0.92 X10^3/uL; Monocyte% 9.9 % (0-10); NRBC Flagged by Analyzer 0 % (0-5); Neutrophil # 6.69 X10^3/uL (2.7-7.7); Neutrophil % 72.1 % (47-70); Platelet Count 181 K/mm3 (150-450); RBC Distribution Width CV 19.7 % (11.6-14.6); RBC Distribution Width SD 55.5 fl (35.1-43.9); Red Blood Count 5.27 M/mm3 (4.2-5.4); White Blood Count 9.3 K/mm3 (4.4-11.0)
[2024-04-04 07:01] LABS: CPK Total, Creatine Kinase 249 U/L (26-192); Phosphorus 3.9 mg/dL (2.5-4.9); Troponin-I HS 128 pg/mL (3.0-54.0)
--- NOTE | 2024-04-04 07:25 | PCM.PN.HOSP ---
Reason for Visit Reason for Visit: Diagnoses Ventricular tachycardia (04/03/24) Rhabdomyolysis (04/03/24) Transient alteration of awareness (04/03/24) Subjective Subjective Patient is an 83-year-old lady with multiple comorbidities who was apparently found in his bathtub by family brought to the emergency department was found to have significant electrolyte abnormalities as well as elevated troponin admitted to the intensive care unit for further management Objective Data Objective Data Vital Signs: Vital Signs Temp Pulse Resp BP Pulse Ox O2 Del Method 99.5 F H 55 L 21 H 112/67 96 Room Air 04/04/24 07:00 04/04/24 07:00 04/04/24 07:00 04/04/24 07:00 04/04/24 07:00 04/04/24 07:00 Oxygen Delivery Method Room Air Weight: 44.9 kg Body Mass Index (BMI) 18.2 Intake & Output: Intake and Output for Last 24 Hours 04/02/24 04/03/24 04/04/24 23:59 23:59 23:59 Intake Total 2303 / 2303 660 / 660 Output Total 1035 / 1035 Balance 2303 / 1303 -375 / -375 Lab / Micro Data 04/04/24 06:34 04/04/24 06:34 Labs: Laboratory Results - last 24 hr 04/03/24 16:35: WBC 10.9, RBC 6.42 H, Hgb 16.8 H, Hct 53.3 H, MCV 83.0, MCH 26.2 L, MCHC 31.5 L, RDW Std Deviation 56.4 H, RDW Coeff of [place] 20.1 H, Plt Count 234, MPV 10.3, Neut % (Auto) Not Reportable, Absolute Neuts (auto) 8.3 H, Absolute Lymphs (auto) 2.20, Total Counted 100, Neutrophils % (Manual) 76 H, Lymphocytes % (Manual) 20, Monocytes % (Manual) 3, Myelocytes % 1 H, Diff Path Review May foll, Reactive Lymphocytes 2+, Plt Morphology Comment CLUMPED, Polychromasia 2+, Anisocytosis 2+, Dana Cells 1+, PT 16.3 H, INR 1.3, APTT 27.3, Sodium 146 H, Potassium 2.9 L, Chloride 110 H, Carbon Dioxide 27.0, Anion Gap 9, BUN 24 H, Creatinine 1.06 H, Estim Creat Clear Calc 28.88, Est GFR (MDRD) Af Amer 63, Est GFR (MDRD) Non-Af 52 L, BUN/Creatinine Ratio 22.6 H, Glucose 77, Lactic Acid 3.1 H*, Calcium 8.9, Phosphorus 1.8 L, Magnesium 2.0, Total Bilirubin 2.10 H, AST 65 H, ALT 26, Alkaline Phosphatase 102, Total Creatine Kinase 598 H, Troponin I High Sens 173 H*, Total Protein 6.6, Albumin 3.3, Globulin 3.3, Albumin/Globulin Ratio 1.0 04/03/24 16:54: POC Glucose 60 L 04/03/24 20:05: Lactic Acid 2.1 H*, Troponin I High Sens 188 H* 04/03/24 20:08: Urine Color Yellow, Urine Clarity Clear, Urine pH 6.0, Ur Specific [place] 1.015, Urine Protein 100 H, Urine Glucose (UA) Normal, Urine Ketones 5 H, Urine Occult Blood 50 H, Urine Nitrite Negative, Urine Bilirubin Negative, Urine Urobilinogen Normal, Ur Leukocyte Esterase Negative, Urine RBC 0-5 SEEN, Urine WBC 0-5 SEEN, Ur Squamous Epith Cells 0-5 SEEN, Urine Bacteria 0 SEEN, Hyaline Casts 0-5 SEEN, Urine Mucus 1+ 04/03/24 21:06: Lactic Acid 1.9 04/03/24 21:29: Procalcitonin 0.13 H 04/04/24 00:35: Lactic Acid 2.1 H*, Troponin I High Sens 148 H* 04/04/24 02:30: Troponin I High Sens 151 H* 04/04/24 06:34: WBC 9.3, RBC 5.27, Hgb 13.9, Hct 43.5, MCV 82.5, MCH 26.4 L, MCHC 32.0, RDW Std Deviation 55.5 H, RDW Coeff of [place] 19.7 H, Plt Count 181, MPV 10.5, Immature Gran % (Auto) 0.500, Neut % (Auto) 72.1 H, Lymph % (Auto) 16.7 L, [place] % (Auto) 9.9, Eos % (Auto) 0.3, Baso % (Auto) 0.5, Absolute Neuts (auto) 6.7, Absolute Lymphs (auto) 1.55, Nucleated RBC % 0, Phosphorus 3.9, Total Creatine Kinase 249 H, Troponin I High Sens 128 H* ABG Data ABG results: ABG 04/03/24 20:36 Specimen Type JOSE Sample Site Not entered VBG pH 7.40 VBG pO2 34 VBG HCO3 22 VBG Total CO2 23 VBG O2 Sat (Calc) 66 VBG Base Excess -3 L POC Mix VBG pCO2 Pt Tmp 35.2 L O2 Delivery Device Not entered Radiography Diagnostic Testing: Radiology Impression Brain CT 04/03/24 16:47 IMPRESSION: 1. Chronic microvascular ischemic changes. 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 2. No acute hemorrhage or ischemic infarctions. 3. Age-appropriate senescent change. Reading Location: [facility] Venous Duplex 04/03/24 16:59 IMPRESSION: No sonographic evidence of a deep venous thrombosis. Reading Location: [facility] Cervical Spine CT 04/03/24 17:18 IMPRESSION: 1. No acute osseous abnormalities involving the cervical spine. 2. Multilevel spondylosis and degenerative disc disease. 3. No central canal narrowing. 4. Nonacute findings detailed above. Reading Location: [facility] Chest X-Ray 04/03/24 17:40 IMPRESSION: NEGATIVE SINGLE VIEW OF THE CHEST. Reading Location: [facility] Physical Exam Narrative GENERAL: cooperative but frail looking HEENT: Atraumatic; normocephalic EYES; Anicteric, Normal Conjunctiva NECK; supple, normal thyroid, RESPIRATORY: Diminished to auscultation CARDIOVASCULAR: Regular S1 S2, GI: soft, normoactive bowel sounds, : No Renal angle tenderness; EXTREMITIES: Both lower extremities in dimitris wrap MUSCULOSKELETAL: no muscle wasting NEURO: Awake; no lateralizing signs. SKIN: No Rash PSYCH; Flat affect Assessment & Plan Assessment/Plan (1) Rhabdomyolysis: (2) Unresponsive episode: (3) Ventricular tachycardia: PLAN: Plan Patient is an 83-year-old lady with multiple comorbidities who was apparently found in his bathtub by family brought to the emergency department was found to have significant electrolyte abnormalities as well as elevated troponin admitted to the intensive care unit for further management 1. Acute metabolic encephalopathy ? Multifactorial including fall with rhabdomyolysis and subsequent electrolyte abnormalities. Patient admitted to a monitored bed with treatment of the underlying etiology 2. Acute rhabdomyolysis ? Patient started on IV fluid with serial monitoring of CK levels ordered 3. Hyperchloremic hypernatremia ? Secondary to profound dehydration on IV fluid with subsequent monitoring of electrolyte ordered 4. Hypokalemia -Corrected per protocol 5. Lactic acidosis ? No evidence of infection. Patient lactic acidosis is secondary to hypovolemia from dehydration 6. Paroxysmal atrial fibrillation ? Rate controlled on amiodarone patient is also on systemic anticoagulation with apixaban continue 7. History of ventricular arrhythmias ? Status post AICD placement 8. Dyslipidemia ? Patient is on atorvastatin held given patient rhabdo 9. Essential hypertension ? Patient is on HCTZ held given patient's severe dehydration 10. Hypothyroidism ? Patient is on levothyroxine home dose continued 11. Carotid artery disease ? With history of right-sided endarterectomy patient is on antiplatelet therapy 12. Depression with anxiety ? Patient is on mirtazapine as well as alprazolam held given patient encephalopathy 13. History of previous VTE ? Patient is on apixaban 14. History of remote CVA ? With no residual effect 15. DVT prophylaxis ? Apixaban Time spent in the patient's overall evaluation,decision-making process, review of diagnostic data, adjustment of management, discussion with other providers, nursing nursing and ancillary staff involved in patient's care documentation, 52. Minutes Charges/Coding Visit Charges Inpatient E&M: [id number] [place] [id number]
[2024-04-04 07:31] LABS: AST(SGOT) 43 U/L (15-37); Alanine Aminotransfer ALT/SGPT 18 U/L (13-56); Albumin, Serum 2.4 g/dL (3.2-5.0); Alkaline Phosphatase 75 U/L (45-117); Anion Gap 8 (5-15); BUN 19 mg/dL (7-18); BUN/Creat Ratio 24.4 RATIO (10-20); Calcium,Total 7.3 mg/dL (8.5-10.1); Chloride 114 mmol/L (98-107); Creatinine, Serum 0.78 mg/dL (0.55-1.02); EST Glomerular Filtration Rate 75 mL/min (>60); Est Glom Filt Rate - Afr Amer 91 mL/min (>60); Globulin 2.5 g/dL (2.2-4.2); Glucose 77 mg/dL (74-106); Magnesium 1.6 mg/dL (1.6-2.6); Potassium 3.3 mmol/L (3.5-5.1); Protein, Total 4.9 g/dL (6.4-8.2); Sodium Level 146 mmol/L (136-145)
--- NOTE | 2024-04-04 07:45 | CON.PCM.CA_ITS ---
Assessment & Plan Assessment/Plan (1) Ventricular tachycardia: PLAN: She did have evidence of wide-complex tachycardia noted on her EKG as well as on her defibrillator evaluation. Her potassium was noted to be rather low and this may be contributing to the above. I would recommend we obtain an echocardiogram to assess her ventricular function, correct her electrolytes and continue her current medications. I do not think that she needs to have any invasive workup at this time. She will continue the IV amiodarone until the current bag is finished and then we will switch her back to p.o. amiodarone. (2) Ischemic cardiomyopathy: PLAN: She will continue the current medications and we will obtain an echocardiogram to assess her ventricular function. (3) Presence of stent in coronary artery: PLAN: She recently underwent PCI of the left anterior descending artery. Her cardiac troponin enzyme pattern was noted to be rather flat and I do not think that this is due to ischemia causing the ventricular tachycardia. Will reevaluate her echocardiogram and depending on the findings further recommendations will be made. (4) Essential hypertension: PLAN: Her blood pressure was noted to be rather elevated. Will continue to optimize her medical therapy. An EDGARDO inhibitor can be added to her regimen. (5) Presence of cardiac defibrillator: PLAN: She does have an implantable defibrillator and this was interrogated and will be reevaluated through our device clinic. (6) History of atrial fibrillation: PLAN: She does have evidence of atrial fibrillation and she will continue with anticoagulation as well as the rate limiting medications. Thank you for allowing me to participate in the care of your patient. Please don't hesitate to call if any issues arise. HPI Consult Data Date of Consult: 04/04/24 HPI Narrative HPI Narrative: STANLEY RODRIGUEZ, is a 83 F who presents to the emergency room after being found in the bathtub at home. The exact duration of time is not entirely clear but when the family found her she was poorly responsive and was brought to the emergency room. Her initial EKG did demonstrate atrial fibrillation but then she had an episode where she became unresponsive and it appears that she had a wide-complex tachycardia. She has a history of coronary artery disease disease status post PTCA/stent to RCA in September 2017 and mid LAD December 2023, ischemic mediated cardiomyopathy, PAF, ventricular tachycardia, status post ICD placement, hyperlipidemia, and hypertension. She had episode of ventricular tachycardia and possibly ventricular fibrillation on ICD report. Her amiodarone was increased to 200 mg p.o. daily. She underwent a heart catheterization on 01/03/2024 that resulted in drug-eluting stent to mid LAD. cardiac catheterization demonstrated an 80% stenosis to the mid LAD, 50% stenosis of the first diagonal vessel, a chronically occluded left circumflex artery with an obtuse marginal branch filling retrogradely via collaterals. The right coronary artery had a 40% in-stent stenosis, 70% ostial posterior descending artery stenosis unchanged from 2018 and 65% proximal posterior descending artery. The stents placed in the mid LAD was a 2.5 x 22 mm [place] frontier stent. Ejection fraction at this time was noted to be 40% with inferior posterior basal hypokinesis present she appears to have done fairly well. She denied any chest pain shortness of breath or paroxysmal nocturnal dyspnea though her history is rather unreliable at this time. [facility] Medical History Loss of hearing Thyroid disease Smoker History of atrial fibrillation Hypothyroidism Carotid stenosis, right History of atrial fibrillation Preoperative cardiovascular examination Wears glasses Wears dentures Cancer Anxiety Back pain Bladder disease High cholesterol TIA (transient ischemic attack) Difficulty chewing Former smoker History of echocardiogram History of stress test History of pacemaker Cardiology follow-up encounter History of heart attack History of irregular heartbeat Aneurysm, carotid artery, internal Carotid stenosis, right Rash Essential hypertension Leukocytosis Paroxysmal atrial fibrillation Presence of stent in coronary artery (~10/02/17) Essential hypertension Atrial fibrillation ICD (implantable cardioverter-defibrillator) discharge Chest pain Chronic dental infection Abnormal stress test GI bleed Hypokalemia Bladder cancer Atherosclerotic heart disease of [place] coronary artery without angina pectoris Ischemic cardiomyopathy Ventricular tachycardia Presence of cardiac defibrillator (~2005) Long-term use of high-risk medication Tobacco abuse Erythrocytosis Old myocardial infarction (~1997) Back problem Arthritis Bladder tumor Polycythemia vera Hypocalcemia Hyperlipidemia Cellulitis of right upper extremity 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 Polycythemia Home Medications ?Medication ?Instructions ?Recorded ?Last Taken ?Type alprazolam 0.25 mg tablet 0.25 tab PO QHS PRN jaw pain 05/24/16 06/12/23 History hydrochlorothiazide 25 mg tablet See Rx Instructions . Route 04/24/23 06/11/23 Rx .COMPLEX HYPERTENSION #90 TABLETS isosorbide mononitrate 30 mg 60 mg (2 x 30 mg) PO CARTER Y heart 04/25/23 06/12/23 Rx tablet,extended release 24 hr #180 tabs potassium chloride 20 mEq 20 meq PO BID HYPOKALEMIA 06/11/23 History tablet,extended release(part/cryst) (Klor-Con M) atorvastatin 40 mg tablet 40 mg PO QHS cholesterol 30 days 06/27/23 Unknown Rx #30 tabs losartan 100 mg tablet 100 mg PO DAILY blood pressu re 30 06/27/23 Unknown Rx days #30 tabs galantamine 4 mg tablet 8 mg PO BIDCM memory 4 Unknown History amiodarone 200 mg tablet 200 mg PO QDAY heart rhythm #90 11/28/23 Unknown Rx tabs apixaban 5 mg tablet (Eliquis) 5 mg PO BID blood thinn er #60 tabs 01/03/24 Unknown Rx clopidogrel 75 mg tablet 75 mg PO DAILY #90 tabs 07/19 Unknown Rx nitroglycerin 0.4 mg sublingual 0.4 mg sublingual UD P RN 01/31/24 Unknown Rx tablet Cardiac/Chest Pain #25 tabs levothyroxine 50 mcg tablet 50 mcg PO QDAY 02/04/24 Un known History mirtazapine 7.5 mg tablet 7.5 mg PO QHS 02/04/24 Unkno wn History cholecalciferol (vitamin D3) 25 25 mcg PO DAILY Unknown History mcg (1,000 unit) tablet metoprolol succinate 200 mg 200 mg PO DAILY 04/03/24 U nknown History tablet,extended release 24 hr Allergy/AdvReac Type Severity Reaction Status Date / Time doxazosin (From Cardura) AdvReac Severe Itching Verified 04/03/24 16:25 Influenza Virus Vaccines AdvReac Severe Other Verified 04/03/24 16:25 Family History Mother Heart disease Myocardial infarction Brother Cancer CAD (coronary artery disease) Brother CAD (coronary artery disease) Brother CAD (coronary artery disease) Surgical History History of cardiac catheterization History of bladder surgery History of carotid endarterectomy History of right-sided carotid endarterectomy History of implantable cardiac defibrillator (ICD) Presence of coronary angioplasty implant and graft (01/03/24) History of cataract extraction History of back surgery History of cholecystectomy History of mandibular surgery History of mandibular surgery ICD SURGERY History of back surgery Hx of cholecystectomy H/O cataract extraction Social History household members: none Smoking Status: Current some day smoker tobacco type: cigarettes how long ago did patient quit smokin years ago alcohol intake: current alcohol intake frequency: holidays/special occasions only Alcohol type: wine caffeine: Yes Type: coffee Number of servings: 4 ROS Constitutional Constitutional: Denies fever(s) or weight loss Eyes Eyes: Reports systems reviewed and no addt'l complaints, except as documented ENT HEENT: Reports systems reviewed and no addt'l complaints, except as documented Cardiovascular Cardiovascular: Denies chest pain at rest, chest pain with activity, dyspnea at rest, dyspnea on exertion, edema, palpitations or paroxysmal nocturnal dyspnea Respiratory/Chest Respiratory/Chest: Denies dyspnea on exertion, productive cough, shortness of breath at rest or shortness of breath with exertion Gastrointestinal Gastrointestinal: Denies change in bowel habits, nausea, vomiting or weight changes Genitourinary Genitourinary: Denies difficulty urinating Musculoskeletal Musculoskeletal: Denies joint stiffness or muscle weakness Integumentary Integumentary: Denies lesions Neurologic Neurologic: Denies dizziness or syncope Psychiatric Psychiatric: Denies anxiety Endocrine Endocrinology: Denies excessive sweating or fatigue Hematologic/Lymphatic Hematologic/Lymphatic: Denies anemia Allergic/Immunologic Allergic/Immunologic: Denies seasonal rhinorrhea Physical Exam Const alert, oriented x3 and no apparent distress General Appearance: cooperative HEENT hearing grossly normal bilaterally Head and Scalp: atraumatic Eyes EOMs intact bilaterally Neck General: normal visual inspection Chest inspection of chest normal and palpation of chest normal Resp normal respiratory effort Auscultation: clear to auscultation bilaterally Cardio regular rate, regular rhythm, S1 normal heart sound and S2 normal heart sound Jugular Venous Distention: JVD GI normal to inspection, nondistended, normoactive bowel sounds Extremity normal capillary refill and no pedal edema Peripheral Pulses: Yes pulses 2+ throughout and femoral pulses present Skin no rashes or lesions noted Neuro oriented x3 and CN's II-XII intact bilaterally Psych Appearance: grossly normal and appropriate Risk Stratification Risk Stratification Applicable: Yes Age >/= 65: Yes >/= 3 CAD Risk Factors (HTN, HLD, DM, family hx of CAD, or current smoker): Yes Aspirin Use in the Past 7 Days: Yes Severe Angina (>/= episodes in 24 hours): No EKG ST Changes >/= 0.5mm: No Positive Cardiac Marker: Yes PRIMITIVO Risk Stratification Score: 4 PRIMITIVO % Risk: 20% Risk Objective Data Vital Signs: Vital Signs Temp Pulse Resp BP Pulse Ox O2 Del Method 99.5 F H 55 L 21 H 112/67 96 Room Air 04/04/24 07:00 04/04/24 07:00 04/04/24 07:00 04/04/24 07:00 04/04/24 07:00 04/04/24 07:00 Oxygen Delivery Method Room Air Weight: 98 lb 15.801 oz Body Mass Index (BMI) 18.2 Intake & Output: Intake and Output for Last 24 Hours 04/02/24 04/03/24 04/04/24 23:59 23:59 23:59 Intake Total 2303 / 2303 660 / 660 Output Total 1035 / 1035 Balance 2303 / 1303 -375 / -375 Lab / Micro Data 04/04/24 06:34 04/04/24 06:34 Labs: Laboratory Results - last 24 hr 04/03/24 16:35: WBC 10.9, RBC 6.42 H, Hgb 16.8 H, Hct 53.3 H, MCV 83.0, MCH 26.2 L, MCHC 31.5 L, RDW Std Deviation 56.4 H, RDW Coeff of [place] 20.1 H, Plt Count 234, MPV 10.3, Neut % (Auto) Not Reportable, Absolute Neuts (auto) 8.3 H, Absolute Lymphs (auto) 2.20, Total Counted 100, Neutrophils % (Manual) 76 H, Lymphocytes % (Manual) 20, Monocytes % (Manual) 3, Myelocytes % 1 H, Diff Path Review May foll, Reactive Lymphocytes 2+, Plt Morphology Comment CLUMPED, Polychromasia 2+, Anisocytosis 2+, Octavio Cells 1+, PT 16.3 H, INR 1.3, APTT 27.3, Sodium 146 H, Potassium 2.9 L, Chloride 110 H, Carbon Dioxide 27.0, Anion Gap 9, BUN 24 H, Creatinine 1.06 H, Estim Creat Clear Calc 28.88, Est GFR (MDRD) Af Amer 63, Est GFR (MDRD) Non-Af 52 L, BUN/Creatinine Ratio 22.6 H, Glucose 77, L actic Acid 3.1 H*, Calcium 8.9, Phosphorus 1.8 L, Magnesium 2.0, Total Bilirubin 2.10 H, AST 65 H, ALT 26, Alkaline Phosphatase 102, Total Creatine Kinase 598 H, Troponin I High Sens 173 H*, Total Protein 6.6, Albumin 3.3, Globulin 3.3, Albumin/Globulin Ratio 1.0 04/03/24 16:54: POC Glucose 60 L 04/03/24 20:05: Lactic Acid 2.1 H*, Troponin I High Sens 188 H* 04/03/24 20:08: Urine Color Yellow, Urine Clarity Clear, Urine pH 6.0, Ur Specific [place] 1.015, Urine Protein 100 H, Urine Glucose (UA) Normal, Urine Ketones 5 H, Urine Occult Blood 50 H, Urine Nitrite Negative, Urine Bilirubin Negative, Urine Urobilinogen Normal, Ur Leukocyte Esterase Negative, Urine RBC 0-5 SEEN, Urine WBC 0-5 SEEN, Ur Squamous Epith Cells 0-5 SEEN, Urine Bacteria 0 SEEN, Hyaline Casts 0-5 SEEN, Urine Mucus 1+ 04/03/24 21:06: Lactic Acid 1.9 04/03/24 21:29: Procalcitonin 0.13 H 04/04/24 00:35: Lactic Acid 2.1 H*, Troponin I High Sens 148 H* 04/04/24 02:30: Troponin I High Sens 151 H* 04/04/24 06:34: WBC 9.3, RBC 5.27, Hgb 13.9, Hct 43.5, MCV 82.5, MCH 26.4 L, MCHC 32.0, RDW Std Deviation 55.5 H, RDW Coeff of [place] 19.7 H, Plt Count 181, MPV 10.5, Immature Gran % (Auto) 0.500, Neut % (Auto) 72.1 H, Lymph % (Auto) 16.7 L, [place] % (Auto) 9.9, Eos % (Auto) 0.3, Baso % (Auto) 0.5, Absolute Neuts (auto) 6.7, Absolute Lymphs (auto) 1.55, Nucleated RBC % 0, Sodium 146 H, Potassium 3.3 L, Chloride 114 H, Carbon Dioxide 24.0, Anion Gap 8, BUN 19 H, Creatinine 0.78, Estim Creat Clear Calc 37.10, Est GFR (MDRD) Af Amer 91, Est GFR (MDRD) Non-Af 75, BUN/Creatinine Ratio 24.4 H, Glucose 77, Calcium 7.3 L, Phosphorus 3.9, Magnesium 1.6, Total Bilirubin 1.60 H, AST 43 H, ALT 18, Alkaline Phosphatase 75, Total Creatine Kinase 249 H, Troponin I High Sens 128 H*, Total Protein 4.9 L, Albumin 2.4 L, Globulin 2.5, Albumin/Globulin Ratio 1.0, TSH 7.200 H ABG Data ABG results: ABG 04/03/24 20:36 Specimen Type JOSE Sample Site Not entered VBG pH 7.40 VBG pO2 34 VBG HCO3 22 VBG Total CO2 23 VBG O2 Sat (Calc) 66 VBG Base Excess -3 L POC Mix VBG pCO2 Pt Tmp 35.2 L O2 Delivery Device Not entered Cardiology Labs/Tests 04/03/24 16:35: WBC 10.9, RBC 6.42 H, Hgb 16.8 H, Hct 53.3 H, MCV 83.0, MCH 26.2 L, MCHC 31.5 L, Plt Count 234, MPV 10.3, Neut % (Auto) Not Reportable, Absolute Neuts (auto) 8.3 H, Total Counted 100, Neutrophils % (Manual) 76 H, Lymphocytes % (Manual) 20, Monocytes % (Manual) 3, Myelocytes % 1 H, PT 16.3 H, INR 1.3, APTT 27.3, Sodium 146 H, Potassium 2.9 L, Chloride 110 H, Carbon Dioxide 27.0, Anion Gap 9, BUN 24 H, Creatinine 1.06 H, Est GFR (MDRD) Af Amer 63, Est GFR (MDRD) Non-Af 52 L, BUN/Creatinine Ratio 22.6 H, Glucose 77, Lactic Acid 3.1 H*, Calcium 8.9, Phosphorus 1.8 L, Magnesium 2.0, Total Bilirubin 2.10 H 04/03/24 20:05: Lactic Acid 2.1 H* 04/03/24 20:08: Urine Color Yellow, Urine Clarity Clear, Urine pH 6.0, Ur Specific [place] 1.015, Urine Protein 100 H, Urine Glucose (UA) Normal, Urine Ketones 5 H, Urine Occult Blood 50 H, Urine Nitrite Negative, Urine Bilirubin Negative, Urine Urobilinogen Normal, Ur Leukocyte Esterase Negative, Urine RBC 0-5 SEEN, Urine WBC 0-5 SEEN 04/03/24 20:36: VBG pH 7.40, VBG pO2 34, VBG HCO3 22, VBG O2 Sat (Calc) 66, VBG Base Excess -3 L 04/03/24 21:06: Lactic Acid 1.9 04/04/24 00:35: Lactic Acid 2.1 H* 04/04/24 06:34: WBC 9.3, RBC 5.27, Hgb 13.9, Hct 43.5, MCV 82.5, MCH 26.4 L, MCHC 32.0, Plt Count 181, MPV 10.5, Immature Gran % (Auto) 0.500, Neut % (Auto) 72.1 H, Lymph % (Auto) 16.7 L, [place] % (Auto) 9.9, Eos % (Auto) 0.3, Baso % (Auto) 0.5, Absolute Neuts (auto) 6.7, Nucleated RBC % 0, Sodium 146 H, P otassium 3.3 L, Chloride 114 H, Carbon Dioxide 24.0, Anion Gap 8, BUN 19 H, Creatinine 0.78, Est GFR (MDRD) Af Amer 91, Est GFR (MDRD) Non-Af 75, B UN/Creatinine Ratio 24.4 H, Glucose 77, Calcium 7.3 L, Phosphorus 3.9, Magnesium 1.6, Total Bilirubin 1.60 H Rhythm: EKG: ECHO: Stress Test: Cardiac Cath: PCI: CT Surgery: Holter monitor: EPS: PPM: CXR: Chest CT Scan: Radiography Diagnostic Testing: Radiology Impression Brain CT 04/03/24 16:47 IMPRESSION: 1. Chronic microvascular ischemic changes. 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 2. No acute hemorrhage or ischemic infarctions. 3. Age-appropriate senescent change. Reading [facility] Venous Duplex 04/03/24 16:59 IMPRESSION: No sonographic evidence of a deep venous thrombosis. Reading Location: [facility] Cervical Spine CT 04/03/24 17:18 IMPRESSION: 1. No acute osseous abnormalities involving the cervical spine. 2. Multilevel spondylosis and degenerative disc disease. 3. No central canal narrowing. 4. Nonacute findings detailed above. Reading Location[facility] Chest X-Ray 04/03/24 17:40 IMPRESSION: NEGATIVE SINGLE VIEW OF THE CHEST. Reading Location: [facility]
[2024-04-04] MEDS: APIXABAN 5 MG TABLET PO ×2 (09:19→22:15)
[2024-04-04] MEDS: Clopidogrel Bisulfate 75 MG Tablet PO (09:20)
[2024-04-04] MEDS: Galantamine Hydrobromide 4 MG Tablet 8 MG PO ×2 (09:21→17:05)
[2024-04-04] MEDS: Isosorbide Mononitrate 60 MG Tablet PO (09:23)
[2024-04-04] MEDS: Potassium Chloride Oral Tablet 20 MEQ PO ×2 (09:23→17:04)
[2024-04-04] MEDS: Acetaminophen 325 MG Tablet 650 MG PO ×2 (09:25→22:19)
[2024-04-04] MEDS: Metoprolol(XL)Succ 50 MG Tablet PO (09:30)
--- NOTE | 2024-04-04 11:40 | CASEMGMT ---
BEBO MILLER Assessment Face to Face with patient for initial transition planning/care coordination assessment. RN PAUL introduced self and role at [facility], pt voices understanding. Pt does present some minor confusion/forgetfulness. Pt appears slow to answer some questions and is a poor historian but ultimately is A&Ox4 and is resting comfortably in bed and is calm. Pt states her name, , current location, the year, and the situation that brought her into the hospital. Care providers, pharmacy, and demographics verified. Admitting dx: Rhabdo, Unresponsive episode LACE Strata: 2 PCP: Mu Specialists: Erin (Vascular), LEILANI Preferred Pharmacy: [facility] Insurance: MCR A/B, [place] Prescription Benefit: Yes LNOK: Kuldip Whalen (Nephew), Liliam Garcia (Niece) Living Arrangements: Pt lives alone in a single story home with two steps to enter ADLs/IADLs: Pt reports that she is independent at baseline Transportation: Self, Kuldip DME: [facility]. Pt denies other DME uses currently. This BEBO MILLER inquired if the pt has a MAS. Pt declines. Handout provided to the pt and advised to set up. HHC/SNF: Pt is active with [facility]. Delfino from [facility] states that the pt has a hx of noncompliance and dementia. Delfino states that the pt will likely require SNF placement. PAUL and SW to follow. Pt also has a Hx at [facility] TCU. Pt?s goal: TBD Plan: TBD. Anticipate SNF vs HH. Current 6-Click score is 7. Therapy is ordered and pending. Pt states that she has wonderful support from her neighbors. Pt also states that her nephew's SO is a nurse. However, pt states that she is frightened to go home. At this time, the pt is unsure of what she is wanting or willing to do at the time of DC. Report given to ICU CM and SW. SW reports that she will provide the pt with a list of SNF options. PAUL and SW to follow. Alma Bruno RN, CM
--- NOTE | 2024-04-04 12:50 | CHAPLAIN ---
Type of Pastoral Visit _x__ Initial Visit ___ Follow-up Visit ___ On-call Visit ___ General Patient Visit ___ Spiritual Assessment ___ Family Conference ___ Bereavement ___ Rapid Response ___ Code Blue ___ Other (describe below) Pastoral Care Referral From _x__ Patient ___ Family ___ Nurse ___ Physician ___ Gamma Operator ___ Poolroom/Poolhall Manager ___ Other (describe below) Sacrament/Intervention ___ Active listening ___ Anointing ___ Scientology ___ Bereavement ___ Communion ___ Bessy exploration ___ ___ Life review _x__ Prayer ___ Reconciliation ___ Sacrament of Sick _x__ Supportive presence ___ Wedding ___ Other (describe below) Pastoral Comments patient reports I'm not real good, but okay I guess; pt welcomes prayer and presence for support
[2024-04-04 13:47] LABS: Pathologist Review Reviewed
[2024-04-04] MEDS: Ensure Plus High Protein 120 ML LIQUID PO ×2 (14:19→22:16)
--- NOTE | 2024-04-04 15:12 | CASEMGMT ---
Social Work Pt was not able to participate in therapy today. EMIGDIO created a list in [facility] of jail facilities in network w/pt's insurance, in pt's preferred geographic area and complete w/quality and resource use data. SW met w/pt and beto Ricketts in pt's room to discuss the possibility of pt going somewhere for rehab. SW gave pt the list. Pt seems open to the idea, but states would want to go somewhere she knows, seems open to TCU. Beto Ricketts states that pt's nephew Kuldip(who is POA) is coming to visit soon, SW will try to stop back in when Kuldip is here. SW will continue to follow. OMI Martinez
--- NOTE | 2024-04-04 15:15 | CASEMGMT ---
Social Work Power of assistant district attorney for healthcare, w/living will provision initialed, is in [employer]. Dominique Whalen is listed as healthcare POA. OMI Martinez
--- NOTE | 2024-04-04 16:10 | CASEMGMT ---
Social Work SW spoke w/pt's nephew Kuldip and his in the hallway prior to his going in to pt's room. We spoke about d/c plan, Kuldip does think pt needs SNF, possibly [facility]. SW let pt's nephew know that pt does have a SNF list, asked him to look at the list and will ask SW to call him tomorrow so he can let SW know options. Kuldip states understanding. SW will ask SW on Sunday to follow up as able. OMI Martinez
--- NOTE | 2024-04-04 17:12 | NURSING ---
Patients glasses are in the medication paving and surfacing labourer her room.
[2024-04-04] MEDS: Amiodarone 200 MG Tablet PO (22:14)
[2024-04-04] MEDS: MELATONIN 3 MG TABLET PO (22:19)
[2024-04-05] VITALS (9 sets, daily range): BP systolic 94–125; BP diastolic 58–77; PULSE 55; RESP 17–23; TEMP 36.6–38; O2SAT 97–100; BMI 18.2
[2024-04-05] MEDS: Levothyroxine 50 MCG Tablet PO (05:26)
[2024-04-05] MEDS: 0.9% Saline Lock 10 ML Syringe IV ×3 (05:26→12:35)
[2024-04-05 07:15] LABS: Absolute Lymphocyte Count 1.67 X10^3/uL (0.83-4.51); Basophil# 0.04 X10^3/uL; Basophil% 0.5 % (0-1); Eosinophil# 0.08 X10^3/uL; Eosinophils% 0.9 % (0-5); Hemoglobin 13.3 g/dL (12.0-15.0); Lymphocyte # 1.67 X10^3/ul (0.83-4.51); Lymphocyte % 19.5 % (19-41); Mean Corp Hgb Conc 30.9 g/dL (32-36); Mean Corpuscular Hgb 25.4 pg (27.0-32.0); Mean Corpuscular Volume 82.2 fL (81-99); Mean Platelet Vol. 10.4 fl (6.2-12.0); Monocyte# 0.68 X10^3/uL; NRBC Flagged by Analyzer 0 % (0-5); Neutrophil # 6.04 X10^3/uL (2.7-7.7); Neutrophil % 70.6 % (47-70); Platelet Count 189 K/mm3 (150-450); RBC Distribution Width CV 19.6 % (11.6-14.6); RBC Distribution Width SD 56.9 fl (35.1-43.9); Red Blood Count 5.23 M/mm3 (4.2-5.4); White Blood Count 8.6 K/mm3 (4.4-11.0)
--- NOTE | 2024-04-05 07:19 | PN.HOSP_ITS ---
Reason for Visit Reason for Visit: Diagnoses Ventricular tachycardia (04/03/24) Rhabdomyolysis (04/03/24) Transient alteration of awareness (04/03/24) Subjective Subjective Patient amiodarone drip weaned off and started on her p.o. amiodarone. Objective Data Objective Data Vital Signs: Vital Signs Temp Pulse Resp BP Pulse Ox O2 Del Method 100 F H 55 L 17 101/64 97 Room Air 04/05/24 03:00 04/05/24 03:00 04/05/24 03:00 04/05/24 03:00 04/05/24 07:17 04/05/24 07:17 Oxygen Delivery Method Room Air Weight: 44.9 kg Body Mass Index (BMI) 18.2 Intake & Output: Intake and Output for Last 24 Hours 04/03/24 04/04/24 04/05/24 23:59 23:59 23:59 Intake Total 2303 / 2303 2406.8 / 2406.8 Output Total 1260 / 1345 105 / 105 Balance 2303 / 1303 1146.8 / 1061.8 -105 / -105 Lab / Micro Data 04/05/24 06:57 04/05/24 06:57 Labs: Laboratory Results - last 24 hr 04/03/24 16:35: Diff Path Review Reviewed 04/04/24 06:34: Sodium 146 H, Potassium 3.3 L, Chloride 114 H, Carbon Dioxide 24.0, Anion Gap 8, BUN 19 H, Creatinine 0.78, Estim Creat Clear Calc 37.10, Est GFR (MDRD) Af Amer 91, Est GFR (MDRD) Non-Af 75, BUN/Creatinine Ratio 24.4 H, Glucose 77, Calcium 7.3 L, Magnesium 1.6, Total Bilirubin 1.60 H, AST 43 H, ALT 18, Alkaline Phosphatase 75, Total Protein 4.9 L, Albumin 2.4 L, Globulin 2.5, Albumin/Globulin Ratio 1.0, TSH 7.200 H 04/05/24 06:57: WBC 8.6, RBC 5.23, Hgb 13.3, Hct 43.0, MCV 82.2, MCH 25.4 L, M CHC 30.9 L, RDW Std Deviation 56.9 H, RDW Coeff of Hood 19.6 H, Plt Count 189, MPV 10.4, Immature Gran % (Auto) 0.500, Neut % (Auto) 70.6 H, Lymph % (Auto) 19.5, [place] % (Auto) 8.0, Eos % (Auto) 0.9, Baso % (Auto) 0.5, Absolute Neuts (auto) 6.0, Absolute Lymphs (auto) 1.67, Nucleated RBC % 0 Radiography Diagnostic Testing: Radiology Impression Echocardiogram 04/03/24 23:28 Interpretation Summary Normal LV size. The left ventricular ejection fraction is 45 %. Mild to moderate segmental systolic dysfunction (see wall motion). Mild (1+) mitral valve insufficiency. Pulmonary artery systolic pressure is 26 mmHg. Ordering Physician: Marielos Azul Referring Physician: Enrike Dobbins Chi Performed By: Nannette Jeffrey, ZEHRA, RVT Physical Exam Narrative GENERAL: cooperative but frail looking HEENT: Atraumatic; normocephalic EYES; Anicteric, Normal Conjunctiva NECK; supple, normal thyroid, RESPIRATORY: Diminished to auscultation CARDIOVASCULAR: Regular S1 S2, GI: soft, normoactive bowel sounds, : No Renal angle tenderness; EXTREMITIES: Both lower extremities in dimitris wrap MUSCULOSKELETAL: no muscle wasting NEURO: Awake; no lateralizing signs. SKIN: No Rash PSYCH; Flat affect Assessment & Plan Assessment/Plan (1) Rhabdomyolysis: (2) Unresponsive episode: (3) Ventricular tachycardia: PLAN: Plan Patient is an 83-year-old lady with multiple comorbidities who was apparently found in his bathtub by family brought to the emergency department was found to have significant electrolyte abnormalities as well as elevated troponin admitted to the intensive care unit for further management 1. Acute metabolic encephalopathy ? Multifactorial including fall with rhabdomyolysis and subsequent electrolyte abnormalities. Patient admitted to a monitored bed with treatment of the underlying etiology 2. Acute rhabdomyolysis ? Patient started on IV fluid with serial monitoring of CK levels ordered 3. Hyperchloremic hypernatremia ? Secondary to profound dehydration on IV fluid with subsequent monitoring of electrolyte ordered 4. Hypokalemia -Corrected per protocol 5. Lactic acidosis ? No evidence of infection. Patient lactic acidosis is secondary to hypovolemia from dehydration 6. Paroxysmal atrial fibrillation ? Rate controlled on amiodarone patient is also on systemic anticoagulation with apixaban continue 7. History of ventricular arrhythmias ? Status post AICD placement ? 04/05/2024; patient had persistent firing of her AICD was started on amiodarone drip has been weaned off.2D echo obtained did show Normal LV size. The left ventricular ejection fraction is 45 %. Mild to moderate segmental systolic dysfunction (see wall motion). Mild (1+) mitral valve insufficiency. Pulmonary artery systolic pressure is 26 mmHg. 8. Dyslipidemia ? Patient is on atorvastatin held given patient rhabdo 9. Essential hypertension ? Patient is on HCTZ held given patient's severe dehydration 10. Hypothyroidism ? Patient is on levothyroxine home dose continued 11. Carotid artery disease ? With history of right-sided endarterectomy patient is on antiplatelet therapy 12. Depression with anxiety ? Patient is on mirtazapine as well as alprazolam held given patient encephalopathy 13. History of previous VTE ? Patient is on apixaban 14. History of remote CVA ? With no residual effect 15. DVT prophylaxis ? Apixaban 16. Physical deconditioning ? Requested for PT OT eval and social service manager to assist with discharge planning Time spent in the patient's overall evaluation,decision-making process, review of diagnostic data, adjustment of management, discussion with other providers, nursing nursing and ancillary staff involved in patient's care documentation, 40 Minutes Charges/Coding Visit Charges Inpatient E&M: 51482 Subs Hosp L2
[2024-04-05 07:42] LABS: Anion Gap 6 (5-15); BUN 29 mg/dL (7-18); BUN/Creat Ratio 24.8 RATIO (10-20); CPK Total, Creatine Kinase 155 U/L (26-192); Calcium,Total 7.7 mg/dL (8.5-10.1); Chloride 114 mmol/L (98-107); Creatinine, Serum 1.17 mg/dL (0.55-1.02); EST Glomerular Filtration Rate 47 mL/min (>60); Est Glom Filt Rate - Afr Amer 57 mL/min (>60); Estimated Creatinine Clearance 25.37 ml/min; Glucose 107 mg/dL (74-106); Magnesium 1.6 mg/dL (1.6-2.6); Phosphorus 2.3 mg/dL (2.5-4.9); Potassium 3.7 mmol/L (3.5-5.1); Sodium Level 142 mmol/L (136-145)
[2024-04-05] MEDS: Sodium Phosphate/Na Biphos 15 MMOL in 0.9% Normal Saline (250mL Bag) 250 ML 125 MMOL IV (09:52)
[2024-04-05] MEDS: Galantamine Hydrobromide 4 MG Tablet 8 MG PO ×2 (09:55→16:31)
[2024-04-05] MEDS: Potassium Chloride Oral Tablet 20 MEQ PO ×2 (09:55→16:31)
[2024-04-05] MEDS: Amiodarone 200 MG Tablet PO ×2 (09:58→21:07)
[2024-04-05] MEDS: APIXABAN 5 MG TABLET PO ×2 (09:58→21:07)
[2024-04-05] MEDS: Clopidogrel Bisulfate 75 MG Tablet PO (09:58)
[2024-04-05] MEDS: Menthol/Lanolin/Calamine/Znox 113 GM Tube 1 APPLIC TOPICAL ×4 (10:01→21:06)
--- NOTE | 2024-04-05 10:02 | PN.CARD_ITS ---
Subjective Subjective Patient seen and evaluated Objective Data Vital Signs: Vital Signs Temp Pulse Resp BP Pulse Ox O2 Del Method 99.2 F H 55 L 22 H 106/77 97 Room Air 04/05/24 08:00 04/05/24 08:00 04/05/24 08:00 04/05/24 08:00 04/05/24 08:00 04/05/24 08:00 Oxygen Delivery Method Room Air Weight: 98 lb 15.801 oz Body Mass Index (BMI) 18.2 Intake & Output: Intake and Output for Last 24 Hours 04/03/24 04/04/24 04/05/24 23:59 23:59 23:59 Intake Total 2303 / 2303 2406.8 / 2406.8 Output Total 1260 / 1345 105 / 105 Balance 2303 / 1303 1146.8 / 1061.8 -105 / -105 Lab / Micro Data 04/05/24 06:57 04/05/24 06:57 Labs: Laboratory Results - last 24 hr 04/03/24 16:35: Diff Path Review Reviewed 04/05/24 06:57: WBC 8.6, RBC 5.23, Hgb 13.3, Hct 43.0, MCV 82.2, MCH 25.4 L, M CHC 30.9 L, RDW Std Deviation 56.9 H, RDW Coeff of Hood 19.6 H, Plt Count 189, MPV 10.4, Immature Gran % (Auto) 0.500, Neut % (Auto) 70.6 H, Lymph % (Auto) 19.5, [place] % (Auto) 8.0, Eos % (Auto) 0.9, Baso % (Auto) 0.5, Absolute Neuts (auto) 6.0, Absolute Lymphs (auto) 1.67, Nucleated RBC % 0, Sodium 142, Potassium 3.7, Chloride 114 H, Carbon Dioxide 22.0, Anion Gap 6, BUN 29 H, C reatinine 1.17 H, Estim Creat Clear Calc 25.37, Est GFR (MDRD) Af Amer 57 L, Est GFR (MDRD) Non-Af 47 L, BUN/Creatinine Ratio 24.8 H, Glucose 107 H, Calcium 7.7 L, Phosphorus 2.3 L, Magnesium 1.6, Total Creatine Kinase 155 Cardiology Labs/Tests 04/05/24 06:57: WBC 8.6, RBC 5.23, Hgb 13.3, Hct 43.0, MCV 82.2, MCH 25.4 L, M CHC 30.9 L, Plt Count 189, MPV 10.4, Immature Gran % (Auto) 0.500, Neut % (Auto) 70.6 H, Lymph % (Auto) 19.5, [place] % (Auto) 8.0, Eos % (Auto) 0.9, Baso % (Auto) 0.5, Absolute Neuts (auto) 6.0, Nucleated RBC % 0, Sodium 142, Potassium 3.7, C hloride 114 H, Carbon Dioxide 22.0, Anion Gap 6, BUN 29 H, Creatinine 1.17 H, E st GFR (MDRD) Af Amer 57 L, Est GFR (MDRD) Non-Af 47 L, BUN/Creatinine Ratio 24.8 H, Glucose 107 H, Calcium 7.7 L, Phosphorus 2.3 L, Magnesium 1.6 Rhythm: EKG: ECHO: Stress Test: Cardiac Cath: PCI: CT Surgery: Holter monitor: EPS: PPM: CXR: Chest CT Scan: Radiography Diagnostic Testing: Radiology Impression Echocardiogram 04/03/24 23:28 Interpretation Summary Normal LV size. The left ventricular ejection fraction is 45 %. Mild to moderate segmental systolic dysfunction (see wall motion). Mild (1+) mitral valve insufficiency. Pulmonary artery systolic pressure is 26 mmHg. Ordering Physician: Marielos Azul Referring Physician: Enrike Dobbins Chi Performed By: Nannette Jeffrey, ZEHRA, RVT Physical Exam Const alert, oriented x3 and no apparent distress General Appearance: cooperative HEENT hearing grossly normal bilaterally Head and Scalp: atraumatic Eyes EOMs intact bilaterally Neck General: normal visual inspection Chest inspection of chest normal and palpation of chest normal Resp normal respiratory effort Auscultation: clear to auscultation bilaterally Cardio regular rate, regular rhythm, S1 normal heart sound and S2 normal heart sound Jugular Venous Distention: JVD GI normal to inspection, nondistended, normoactive bowel sounds Extremity normal capillary refill and no pedal edema Peripheral Pulses: Yes pulses 2+ throughout and femoral pulses present Skin no rashes or lesions noted Neuro oriented x3 and CN's II-XII intact bilaterally Psych Appearance: grossly normal and appropriate Assessment & Plan Assessment/Plan (1) Ventricular tachycardia: PLAN: She did have evidence of wide-complex tachycardia noted on her EKG as well as on her defibrillator evaluation. Her potassium was noted to be rather low and this may be contributing to the above. I would recommend we obtain an echocardiogram to assess her ventricular function, correct her electrolytes and continue her current medications. I do not think that she needs to have any invasive workup at this time. She will continue p.o. amiodarone. (2) Ischemic cardiomyopathy: PLAN: She will continue the current medications and we will obtain an echocardiogram to assess her ventricular function. (3) Presence of stent in coronary artery: PLAN: She recently underwent PCI of the left anterior descending artery. Her cardiac troponin enzyme pattern was noted to be rather flat and I do not think that this is due to ischemia causing the ventricular tachycardia. Will reevaluate her echocardiogram and depending on the findings further recommendations will be made. (4) Essential hypertension: PLAN: Her blood pressure was noted to be rather elevated. Will continue to optimize her medical therapy. An EDGARDO inhibitor can be added to her regimen. (5) Presence of cardiac defibrillator: PLAN: She does have an implantable defibrillator and this was interrogated and will be reevaluated through our device clinic. (6) History of atrial fibrillation: PLAN: She does have evidence of atrial fibrillation and she will continue with anticoagulation as well as the rate limiting medications. Thank you for allowing me to participate in the care of your patient. Please don't hesitate to call if any issues arise.
[2024-04-05] MEDS: Ensure Plus High Protein 120 ML LIQUID PO ×4 (10:03→21:09)
[2024-04-05 13:46] LABS: Phosphorus 3.4 mg/dL (2.5-4.9)
--- NOTE | 2024-04-05 15:33 | CASEMGMT ---
Social Work- SW called pt nephew to follow up on conversation for discharge planning. Pt nephew reports that she has been and continues to be out of town and has not had the opportunity to review the SNF list provided. Pt nephew reports he will be back in town tomorrow and review the list at that time. EMIGDIO to follow up on Sunday. SHAYY Escalante
[2024-04-05] MEDS: Acetaminophen 325 MG Tablet 650 MG PO (16:31)
--- NOTE | 2024-04-05 19:38 | PCM.HOSP.N ---
Hospitalist Note Notified pt with almost no uop over the course of the day. Reviewed chart, given hx of HF will hydrate cautiously and monitor UOP, can adjust fluids further pending response to IVF challenge
[2024-04-05] MEDS: 0.9% Normal Saline (1000mL) 1,000 ML 50 ML IV (20:55)
[2024-04-05 23:04] LABS: Mucous, Urine 0 SEEN /hpf (<or=2+)
[2024-04-05 23:11] LABS: Color, Urine Amber (Yellow); Glucose, Dipstick Normal (Normal); Ketone-Dipstick 5 mg/dl (Negative); Leukocyte Esterase-Dipstick 500 /ul (Negative); Nitrite-Dipstick Positive (Negative); Occult Blood-Urine 250 /ul (Negative); Protein-Dipstick 100 mg/dl (Negative); Specific Gravity, Urine 1.015 (1.002-1.030); Urine Bilirubin Dipstick Negative (Negative); Urine Clarity Cloudy (Clear); Urine Urobilinogen Normal (Normal)
[2024-04-05 23:34] LABS: Bacteria 4+ /hpf (None Seen); Hyaline Cast 5-10 SEEN /lpf (0-5); Red Blood Cells-Urine 50-100 SEEN /hpf (0-5); Squamous Epithelial Cells - UA 5-10 SEEN /hpf (5-10); White Blood Cells >100 SEEN /hpf (0-5)
[2024-04-05 23:36] LABS: Fine Granular Cast- Urine 0-5 SEEN /lpf (0-5); Other Crystals-Urine 2+ /hpf (None Seen)
[2024-04-06] VITALS (7 sets, daily range): BP systolic 146–167; BP diastolic 75–97; PULSE 55–60; RESP 22–24; TEMP 36.5–36.7; O2SAT 96–99; BMI 18.3
[2024-04-06 06:06] LABS: Absolute Lymphocyte Count 1.25 X10^3/uL (0.83-4.51); Absolute Neutrophil Count 7.8 X10^3/uL (2.0-7.7); Basophil# 0.04 X10^3/uL; Basophil% 0.4 % (0-1); Eosinophil# 0.07 X10^3/uL; Eosinophils% 0.7 % (0-5); Hematocrit 44.6 % (37-47); Hemoglobin 13.9 g/dL (12.0-15.0); Lymphocyte # 1.25 X10^3/ul (0.83-4.51); Lymphocyte % 12.8 % (19-41); Mean Corp Hgb Conc 31.2 g/dL (32-36); Mean Corpuscular Hgb 25.6 pg (27.0-32.0); Mean Platelet Vol. 10.1 fl (6.2-12.0); Monocyte# 0.56 X10^3/uL; Monocyte% 5.7 % (0-10); NRBC Flagged by Analyzer 0 % (0-5); Neutrophil # 7.75 X10^3/uL (2.7-7.7); Neutrophil % 79.7 % (47-70); Platelet Count 192 K/mm3 (150-450); RBC Distribution Width CV 19.7 % (11.6-14.6); RBC Distribution Width SD 56.5 fl (35.1-43.9); Red Blood Count 5.44 M/mm3 (4.2-5.4); White Blood Count 9.7 K/mm3 (4.4-11.0)
[2024-04-06 06:28] LABS: Anion Gap 6 (5-15); BUN 25 mg/dL (7-18); BUN/Creat Ratio 26.9 RATIO (10-20); CPK Total, Creatine Kinase 114 U/L (26-192); Calcium,Total 7.7 mg/dL (8.5-10.1); Chloride 112 mmol/L (98-107); Creatinine, Serum 0.93 mg/dL (0.55-1.02); EST Glomerular Filtration Rate 61 mL/min (>60); Est Glom Filt Rate - Afr Amer 74 mL/min (>60); Estimated Creatinine Clearance 32.06 ml/min; Glucose 88 mg/dL (74-106); Potassium 3.9 mmol/L (3.5-5.1); Sodium Level 141 mmol/L (136-145)
[2024-04-06] MEDS: Levothyroxine 50 MCG Tablet PO (07:14)
--- NOTE | 2024-04-06 07:19 | PN.HOSP_ITS ---
Reason for Visit Reason for Visit: Diagnoses Essential (primary) hypertension (04/03/24) Ischemic cardiomyopathy (04/03/24) Ventricular tachycardia (04/03/24) Rhabdomyolysis (04/03/24) Transient alteration of awareness (04/03/24) Personal history of other diseases of the circulatory system (04/03/24) Presence of coronary angioplasty implant and graft (04/03/24) Presence of automatic (implantable) cardiac defibrillator (04/03/24) Subjective Subjective Patient was found to have low-grade fever ordered urinalysis which came back consistent with acute cystitis subsequently started on ceftriaxone Objective Data Objective Data Vital Signs: Vital Signs Temp Pulse Resp BP Pulse Ox O2 Del Method 98.1 F 60 23 H 167/93 H 98 Nasal Cannula 04/06/24 02:00 04/06/24 02:00 04/06/24 02:00 04/06/24 02:00 04/06/24 02:40 04/06/24 02:40 Oxygen Delivery Method Nasal Cannula Weight: 45.1 kg Body Mass Index (BMI) 18.3 Intake & Output: Intake and Output for Last 24 Hours 04/04/24 04/05/24 04/06/24 23:59 23:59 23:59 Intake Total 2406.8 / 2406.8 605 / 605 446.67 / 446.67 Output Total 1260 / 1345 330 / 330 50 / 50 Balance 1146.8 / 1061.8 275 / 275 396.67 / 396.67 Lab / Micro Data 04/06/24 05:29 04/06/24 05:29 Labs: Laboratory Results - last 24 hr 04/05/24 06:57: Sodium 142, Potassium 3.7, Chloride 114 H, Carbon Dioxide 22.0, Anion Gap 6, BUN 29 H, Creatinine 1.17 H, Estim Creat Clear Calc 25.37, Est GFR (MDRD) Af Amer 57 L, Est GFR (MDRD) Non-Af 47 L, BUN/Creatinine Ratio 24.8 H, G lucose 107 H, Calcium 7.7 L, Phosphorus 2.3 L, Magnesium 1.6, Total Creatine Kinase 155 04/05/24 13:10: Phosphorus 3.4 04/05/24 23:00: Urine Color Sherry, Urine Clarity Cloudy, Urine pH 9.0, Ur Specific [place] 1.015, Urine Protein 100 H, Urine Glucose (UA) Normal, Urine Ketones 5 H, Urine Occult Blood 250 H, Urine Nitrite Positive H, Urine Bilirubin Negative, Urine Urobilinogen Normal, Ur Leukocyte Esterase 500 H, Urine RBC 50- 100 SEEN, Urine WBC >100 SEEN, Ur Squamous Epith Cells 5-10 SEEN, Other Crystals 2+, Urine Bacteria 4+, Hyaline Casts 5-10 SEEN, Fine Granular Casts 0-5 SEEN, Urine Mucus 0 SEEN 04/06/24 05:29: WBC 9.7, RBC 5.44 H, Hgb 13.9, Hct 44.6, MCV 82.0, MCH 25.6 L, M CHC 31.2 L, RDW Std Deviation 56.5 H, RDW Coeff of Hood 19.7 H, Plt Count 192, MPV 10.1, Immature Gran % (Auto) 0.700, Neut % (Auto) 79.7 H, Lymph % (Auto) 12.8 L, [place] % (Auto) 5.7, Eos % (Auto) 0.7, Baso % (Auto) 0.4, Absolute Neuts (auto) 7.8 H, Absolute Lymphs (auto) 1.25, Nucleated RBC % 0, Sodium 141, Potassium 3.9, Chloride 112 H, Carbon Dioxide 23.0, Anion Gap 6, BUN 25 H, Creatinine 0.93, Estim Creat Clear Calc 32.06, Est GFR (MDRD) Af Amer 74, Est GFR (MDRD) Non-Af 61, BUN/Creatinine Ratio 26.9 H, Glucose 88, Calcium 7.7 L, Total Creatine Kinase 114 Micro: Microbiology 04/05/24 14:08 Mucosa - Nasopharyngeal Coronavirus COVID-19 PCR - Final 04/05/24 14:08 Mucosa - Nasopharyngeal Respiratory Panel (PCR) - Final Physical Exam Narrative GENERAL: cooperative but frail looking HEENT: Atraumatic; normocephalic EYES; Anicteric, Normal Conjunctiva NECK; supple, normal thyroid, RESPIRATORY: Diminished to auscultation CARDIOVASCULAR: Regular S1 S2, GI: soft, normoactive bowel sounds, : No Renal angle tenderness; EXTREMITIES: Both lower extremities in dimitris wrap MUSCULOSKELETAL: no muscle wasting NEURO: Awake; no lateralizing signs. SKIN: No Rash PSYCH; Flat affect Assessment & Plan Assessment/Plan (1) Rhabdomyolysis: (2) Unresponsive episode: (3) Ventricular tachycardia: PLAN: Plan Patient is an 83-year-old lady with multiple comorbidities who was apparently found in his bathtub by family brought to the emergency department was found to have significant electrolyte abnormalities as well as elevated troponin admitted to the intensive care unit for further management 1. Acute metabolic encephalopathy ? Multifactorial including fall with rhabdomyolysis, acute cystitis and subsequent electrolyte abnormalities. Patient admitted to a monitored bed with treatment of the underlying etiology 2. Acute rhabdomyolysis ? Patient started on IV fluid with serial monitoring of CK levels ordered 3. Hyperchloremic hypernatremia ? Secondary to profound dehydration on IV fluid with subsequent monitoring of electrolyte ordered 4. Hypokalemia -Corrected per protocol 5. Lactic acidosis ? No evidence of infection. Patient lactic acidosis is secondary to hypovolemia from dehydration 6. Paroxysmal atrial fibrillation ? Rate controlled on amiodarone patient is also on systemic anticoagulation with apixaban continue 7. History of ventricular arrhythmias ? Status post AICD placement ? 04/05/2024; patient had persistent firing of her AICD was started on amiodarone drip has been weaned off.2D echo obtained did show Normal LV size. The left ventricular ejection fraction is 45 %. Mild to moderate segmental systolic dysfunction (see wall motion). Mild (1+) mitral valve insufficiency. Pulmonary artery systolic pressure is 26 mmHg. 8. Dyslipidemia ? Patient is on atorvastatin held given patient rhabdo 9. Essential hypertension ? Patient is on HCTZ held given patient's severe dehydration 10. Hypothyroidism ? Patient is on levothyroxine home dose continued 11. Carotid artery disease ? With history of right-sided endarterectomy patient is on antiplatelet therapy 12. Depression with anxiety ? Patient is on mirtazapine as well as alprazolam held given patient encephalopathy 13. History of previous VTE ? Patient is on apixaban 14. History of remote CVA ? With no residual effect 15. DVT prophylaxis ? Apixaban 16. Physical deconditioning ? Requested for PT OT eval and sr. social media & mobile manager to assist with discharge planning 17. Acute cystitis (Probably present on admission) ? Patient was started on ceftriaxone cultures sent Time spent in the patient's overall evaluation,decision-making process, review of diagnostic data, adjustment of management, discussion with other providers, nursing nursing and ancillary staff involved in patient's care documentation, 40 Minutes Charges/Coding Visit Charges Inpatient E&M: 78785 Subs Hosp L2
[2024-04-06] MEDS: Metoprolol(XL)Succ 50 MG Tablet PO (09:49)
[2024-04-06] MEDS: Isosorbide Mononitrate 60 MG Tablet PO (09:49)
[2024-04-06] MEDS: Losartan Potassium 25 MG Tablet PO (09:49)
[2024-04-06] MEDS: Acetaminophen 325 MG Tablet 650 MG PO (09:49)
[2024-04-06] MEDS: Clopidogrel Bisulfate 75 MG Tablet PO (09:49)
[2024-04-06] MEDS: Potassium Chloride Oral Tablet 20 MEQ PO ×2 (09:50→17:46)
[2024-04-06] MEDS: Amiodarone 200 MG Tablet PO ×2 (09:50→20:47)
[2024-04-06] MEDS: APIXABAN 5 MG TABLET PO ×2 (09:50→20:47)
[2024-04-06] MEDS: Menthol/Lanolin/Calamine/Znox 113 GM Tube 1 APPLIC TOPICAL ×4 (09:50→20:46)
[2024-04-06] MEDS: Galantamine Hydrobromide 4 MG Tablet 8 MG PO ×2 (09:50→17:45)
[2024-04-06] MEDS: Ensure Plus High Protein 120 ML LIQUID PO ×3 (09:53→20:48)
--- NOTE | 2024-04-06 10:26 | PN.CARD_ITS ---
Subjective Subjective Patient seen and evaluated. Objective Data Vital Signs: Vital Signs Temp Pulse Resp BP Pulse Ox O2 Del Method 97.7 F L 58 L 24 H 151/75 H 96 Room Air 04/06/24 08:00 04/06/24 09:49 04/06/24 08:00 04/06/24 08:00 04/06/24 08:00 04/06/24 08:00 Oxygen Delivery Method Room Air Weight: 99 lb 6.856 oz Body Mass Index (BMI) 18.3 Intake & Output: Intake and Output for Last 24 Hours 04/04/24 04/05/24 04/06/24 23:59 23:59 23:59 Intake Total 2406.8 / 2406.8 605 / 605 446.67 / 446.67 Output Total 1260 / 1345 330 / 330 50 / 50 Balance 1146.8 / 1061.8 275 / 275 396.67 / 396.67 Lab / Micro Data 04/06/24 05:29 04/06/24 05:29 Labs: Laboratory Results - last 24 hr 04/05/24 13:10: Phosphorus 3.4 04/05/24 23:00: Urine Color Sherry, Urine Clarity Cloudy, Urine pH 9.0, Ur Specific [place] 1.015, Urine Protein 100 H, Urine Glucose (UA) Normal, Urine Ketones 5 H, Urine Occult Blood 250 H, Urine Nitrite Positive H, Urine Bilirubin Negative, Urine Urobilinogen Normal, Ur Leukocyte Esterase 500 H, Urine RBC 50- 100 SEEN, Urine WBC >100 SEEN, Ur Squamous Epith Cells 5-10 SEEN, Other Crystals 2+, Urine Bacteria 4+, Hyaline Casts 5-10 SEEN, Fine Granular Casts 0-5 SEEN, Urine Mucus 0 SEEN 04/06/24 05:29: WBC 9.7, RBC 5.44 H, Hgb 13.9, Hct 44.6, MCV 82.0, MCH 25.6 L, M CHC 31.2 L, RDW Std Deviation 56.5 H, RDW Coeff of [place] 19.7 H, Plt Count 192, MPV 10.1, Immature Gran % (Auto) 0.700, Neut % (Auto) 79.7 H, Lymph % (Auto) 12.8 L, [place] % (Auto) 5.7, Eos % (Auto) 0.7, Baso % (Auto) 0.4, Absolute Neuts (auto) 7.8 H, Absolute Lymphs (auto) 1.25, Nucleated RBC % 0, Sodium 141, Potassium 3.9, Chloride 112 H, Carbon Dioxide 23.0, Anion Gap 6, BUN 25 H, Creatinine 0.93, Estim Creat Clear Calc 32.06, Est GFR (MDRD) Af Amer 74, Est GFR (MDRD) Non-Af 61, BUN/Creatinine Ratio 26.9 H, Glucose 88, Calcium 7.7 L, Total Creatine Kinase 114 Micro: Microbiology 04/05/24 14:08 Mucosa - Nasopharyngeal Coronavirus COVID-19 PCR - Final 04/05/24 14:08 Mucosa - Nasopharyngeal Respiratory Panel (PCR) - Final Cardiology Labs/Tests 04/05/24 13:10: Phosphorus 3.4 04/05/24 23:00: Urine Color Sherry, Urine Clarity Cloudy, Urine pH 9.0, Ur Specific [place] 1.015, Urine Protein 100 H, Urine Glucose (UA) Normal, Urine Ketones 5 H, Urine Occult Blood 250 H, Urine Nitrite Positive H, Urine Bilirubin Negative, Urine Urobilinogen Normal, Ur Leukocyte Esterase 500 H, Urine RBC 50- 100 SEEN, Urine WBC >100 SEEN 04/06/24 05:29: WBC 9.7, RBC 5.44 H, Hgb 13.9, Hct 44.6, MCV 82.0, MCH 25.6 L, M CHC 31.2 L, Plt Count 192, MPV 10.1, Immature Gran % (Auto) 0.700, Neut % (Auto) 79.7 H, Lymph % (Auto) 12.8 L, [place] % (Auto) 5.7, Eos % (Auto) 0.7, Baso % (Auto) 0.4, Absolute Neuts (auto) 7.8 H, Nucleated RBC % 0, Sodium 141, Potassium 3.9, Chloride 112 H, Carbon Dioxide 23.0, Anion Gap 6, BUN 25 H, Creatinine 0.93, Est GFR (MDRD) Af Amer 74, Est GFR (MDRD) Non-Af 61, B UN/Creatinine Ratio 26.9 H, Glucose 88, Calcium 7.7 L Rhythm: EKG: ECHO: Stress Test: Cardiac Cath: PCI: CT Surgery: Holter monitor: EPS: PPM: CXR: Chest CT Scan: Physical Exam Const alert, oriented x3 and no apparent distress General Appearance: cooperative HEENT hearing grossly normal bilaterally Head and Scalp: atraumatic Eyes EOMs intact bilaterally Neck General: normal visual inspection Chest inspection of chest normal and palpation of chest normal Resp normal respiratory effort Auscultation: clear to auscultation bilaterally Cardio regular rate, regular rhythm, S1 normal heart sound and S2 normal heart sound Jugular Venous Distention: JVD GI normal to inspection, nondistended, normoactive bowel sounds Extremity normal capillary refill and no pedal edema Peripheral Pulses: Yes pulses 2+ throughout and femoral pulses present Skin no rashes or lesions noted Neuro oriented x3 and CN's II-XII intact bilaterally Psych Appearance: grossly normal and appropriate Assessment & Plan Assessment/Plan (1) Ventricular tachycardia: PLAN: She did have evidence of wide-complex tachycardia noted on her EKG as well as on her defibrillator evaluation. Her potassium was noted to be rather low and this may be contributing to the above. She has had no more VT since admission. I do not think that she needs to have any invasive workup at this time. She will continue p.o. amiodarone. (2) Ischemic cardiomyopathy: PLAN: She will continue the current medications and echo demonstrated ejection fraction of 45% with segmental wall motion abnormalities. (3) Presence of stent in coronary artery: PLAN: She recently underwent PCI of the left anterior descending artery. Her cardiac troponin enzyme pattern was noted to be rather flat and I do not think that this is due to ischemia causing the ventricular tachycardia. (4) Essential hypertension: PLAN: Her blood pressure was noted to be rather elevated. Will continue to optimize her medical therapy. An EDGARDO inhibitor can be added to her regimen. (5) Presence of cardiac defibrillator: PLAN: She does have an implantable defibrillator and this was interrogated and will be reevaluated through our device clinic. (6) History of atrial fibrillation: PLAN: She does have evidence of atrial fibrillation and she will continue with anticoagulation as well as the rate limiting medications. Thank you for allowing me to participate in the care of your patient. Please don't hesitate to call if any issues arise.
[2024-04-06] MEDS: Ceftriaxone 1 GM/50 ML BAG IV (11:33)
[2024-04-07] VITALS (7 sets, daily range): BP systolic 107–181; BP diastolic 69–106; PULSE 55–63; RESP 18–25; TEMP 36.4–36.8; O2SAT 94–99; BMI 20.7
[2024-04-07] MEDS: Levothyroxine 50 MCG Tablet PO (06:05)
[2024-04-07 06:37] LABS: Basophil# 0.07 X10^3/uL; Basophil% 0.7 % (0-1); Eosinophil# 0.15 X10^3/uL; Eosinophils% 1.4 % (0-5); Hematocrit 44.5 % (37-47); Hemoglobin 14.4 g/dL (12.0-15.0); Lymphocyte % 14.9 % (19-41); Mean Corp Hgb Conc 32.4 g/dL (32-36); Mean Corpuscular Hgb 26.3 pg (27.0-32.0); Mean Corpuscular Volume 81.4 fL (81-99); Mean Platelet Vol. 10.9 fl (6.2-12.0); Monocyte# 0.76 X10^3/uL; Monocyte% 7.1 % (0-10); NRBC Flagged by Analyzer 0 % (0-5); Neutrophil # 8.02 X10^3/uL (2.7-7.7); Neutrophil % 74.9 % (47-70); Platelet Count 216 K/mm3 (150-450); RBC Distribution Width CV 19.8 % (11.6-14.6); RBC Distribution Width SD 55.3 fl (35.1-43.9); Red Blood Count 5.47 M/mm3 (4.2-5.4); White Blood Count 10.7 K/mm3 (4.4-11.0)
[2024-04-07 07:03] LABS: Anion Gap 6 (5-15); BUN 32 mg/dL (7-18); BUN/Creat Ratio 41.1 RATIO (10-20); CPK Total, Creatine Kinase 91 U/L (26-192); Calcium,Total 8.1 mg/dL (8.5-10.1); Chloride 109 mmol/L (98-107); Creatinine, Serum 0.78 mg/dL (0.55-1.02); EST Glomerular Filtration Rate 75 mL/min (>60); Est Glom Filt Rate - Afr Amer 91 mL/min (>60); Glucose 91 mg/dL (74-106); Potassium 4.6 mmol/L (3.5-5.1); Sodium Level 138 mmol/L (136-145)
--- NOTE | 2024-04-07 07:49 | PCM.PN.CARD ---
Subjective Subjective Patient seen and evaluted Objective Data Vital Signs: Vital Signs Temp Pulse Resp BP Pulse Ox O2 Del Method 97.5 F L 60 18 131/79 H 97 Room Air 04/07/24 02:00 04/07/24 02:00 04/07/24 02:00 04/07/24 02:00 04/07/24 02:00 04/07/24 03:00 Oxygen Delivery Method Room Air Weight: 112 lb 6.4 oz Body Mass Index (BMI) 20.7 Intake & Output: Intake and Output for Last 24 Hours 04/05/24 04/06/24 04/07/24 23:59 23:59 23:59 Intake Total 605 / 605 496.67 / 496.67 Output Total 330 / 330 450 / 450 200 / 200 Balance 275 / 275 46.67 / 46.67 -200 / -200 Lab / Micro Data 04/07/24 06:22 04/07/24 06:22 Labs: Laboratory Results - last 24 hr 04/05/24 23:00: Urine Color Sherry, Urine Clarity Cloudy, Urine pH 9.0, Ur Specific [place] 1.015, Urine Protein 100 H, Urine Glucose (UA) Normal, Urine Ketones 5 H, Urine Occult Blood 250 H, Urine Nitrite Positive H, Urine Bilirubin Negative, Urine Urobilinogen Normal, Ur Leukocyte Esterase 500 H, Urine RBC 50-100 SEEN, Urine WBC >100 SEEN, Ur Squamous Epith Cells 5-10 SEEN, Other Crystals 2+, Urine Bacteria 4+, Hyaline Casts 5-10 SEEN, Fine Granular Casts 0-5 SEEN, Urine Mucus 0 SEEN 04/07/24 06:22: WBC 10.7, RBC 5.47 H, Hgb 14.4, Hct 44.5, MCV 81.4, MCH 26.3 L, MCHC 32.4, RDW Std Deviation 55.3 H, RDW Coeff of [place] 19.8 H, Plt Count 216, MPV 10.9, Immature Gran % (Auto) 1.000 H, Neut % (Auto) 74.9 H, Lymph % (Auto) 14.9 L, [place] % (Auto) 7.1, Eos % (Auto) 1.4, Baso % (Auto) 0.7, Absolute Neuts (auto) 8.0 H, Absolute Lymphs (auto) 1.60, Nucleated RBC % 0, Sodium 138, Potassium 4.6, Chloride 109 H, Carbon Dioxide 23.0, Anion Gap 6, BUN 32 H, Creatinine 0.78, Estim Creat Clear Calc 39.50, Est GFR (MDRD) Af Amer 91, Est GFR (MDRD) Non-Af 75, BUN/Creatinine Ratio 41.1 H, Glucose 91, Calcium 8.1 L, Total Creatine Kinase 91 Micro: Microbiology 04/05/24 23:00 Urine Catheter - Catheter Urine Culture - Preliminary Gram negative sulaiman Cardiology Labs/Tests 04/05/24 23:00: Urine Color Sherry, Urine Clarity Cloudy, Urine pH 9.0, Ur Specific [place] 1.015, Urine Protein 100 H, Urine Glucose (UA) Normal, Urine Ketones 5 H, Urine Occult Blood 250 H, Urine Nitrite Positive H, Urine Bilirubin Negative, Urine Urobilinogen Normal, Ur Leukocyte Esterase 500 H, Urine RBC 50-100 SEEN, Urine WBC >100 SEEN 04/07/24 06:22: WBC 10.7, RBC 5.47 H, Hgb 14.4, Hct 44.5, MCV 81.4, MCH 26.3 L, MCHC 32.4, Plt Count 216, MPV 10.9, Immature Gran % (Auto) 1.000 H, Neut % (Auto) 74.9 H, Lymph % (Auto) 14.9 L, [place] % (Auto) 7.1, Eos % (Auto) 1.4, Baso % (Auto) 0.7, Absolute Neuts (auto) 8.0 H, Nucleated RBC % 0, Sodium 138, Potassium 4.6, Chloride 109 H, Carbon Dioxide 23.0, Anion Gap 6, BUN 32 H, Creatinine 0.78, Est GFR (MDRD) Af Amer 91, Est GFR (MDRD) Non-Af 75, BUN/Creatinine Ratio 41.1 H, Glucose 91, Calcium 8.1 L Rhythm: EKG: ECHO: Stress Test: Cardiac Cath: PCI: CT Surgery: Holter monitor: EPS: PPM: CXR: Chest CT Scan: Physical Exam Const alert, oriented x3 and no apparent distress General Appearance: cooperative HEENT hearing grossly normal bilaterally Head and Scalp: atraumatic Eyes EOMs intact bilaterally Neck General: normal visual inspection Chest inspection of chest normal and palpation of chest normal Resp normal respiratory effort Auscultation: clear to auscultation bilaterally Cardio regular rate, regular rhythm, S1 normal heart sound and S2 normal heart sound Jugular Venous Distention: JVD GI normal to inspection, nondistended, normoactive bowel sounds Extremity normal capillary refill and no pedal edema Peripheral Pulses: Yes pulses 2+ throughout and femoral pulses present Skin no rashes or lesions noted Neuro oriented x3 and CN's II-XII intact bilaterally Psych Appearance: grossly normal and appropriate Assessment & Plan Assessment/Plan (1) Ventricular tachycardia: PLAN: She did have evidence of wide-complex tachycardia noted on her EKG as well as on her defibrillator evaluation. Her potassium was noted to be rather low and this may be contributing to the above. She has had no more VT since admission. I do not think that she needs to have any invasive workup at this time. She will continue p.o. amiodarone. (2) Ischemic cardiomyopathy: PLAN: She will continue the current medications and echo demonstrated ejection fraction of 45% with segmental wall motion abnormalities. (3) Presence of stent in coronary artery: PLAN: She recently underwent PCI of the left anterior descending artery. Her cardiac troponin enzyme pattern was noted to be rather flat and I do not think that this is due to ischemia causing the ventricular tachycardia. (4) Essential hypertension: PLAN: Her blood pressure was noted to be rather elevated. Will continue to optimize her medical therapy. An EDGARDO inhibitor can be added to her regimen. (5) Presence of cardiac defibrillator: PLAN: She does have an implantable defibrillator and this was interrogated and will be reevaluated through our device clinic. (6) History of atrial fibrillation: PLAN: She does have evidence of atrial fibrillation and she will continue with anticoagulation as well as the rate limiting medications. Thank you for allowing me to participate in the care of your patient. Please don't hesitate to call if any issues arise. PLAN: Plan Will sign off at this stage. Please reconsult as necessary.
--- NOTE | 2024-04-07 08:06 | PCM.PN.HOSP ---
Reason for Visit Reason for Visit: Diagnoses Essential (primary) hypertension (04/03/24) Ischemic cardiomyopathy (04/03/24) Ventricular tachycardia (04/03/24) Rhabdomyolysis (04/03/24) Transient alteration of awareness (04/03/24) Personal history of other diseases of the circulatory system (04/03/24) Presence of coronary angioplasty implant and graft (04/03/24) Presence of automatic (implantable) cardiac defibrillator (04/03/24) Subjective Subjective No further defibrillatory events. Objective Data Objective Data Vital Signs: Vital Signs Temp Pulse Resp BP Pulse Ox O2 Del Method 36.4 C L 60 18 131/79 H 97 Room Air 04/07/24 02:00 04/07/24 02:00 04/07/24 02:00 04/07/24 02:00 04/07/24 02:00 04/07/24 03:00 Oxygen Delivery Method Room Air Weight: 50.984 kg Body Mass Index (BMI) 20.7 Intake & Output: Intake and Output for Last 24 Hours 04/05/24 04/06/24 04/07/24 23:59 23:59 23:59 Intake Total 605 / 605 496.67 / 496.67 Output Total 330 / 330 450 / 450 200 / 200 Balance 275 / 275 46.67 / 46.67 -200 / -200 Lab / Micro Data 04/07/24 06:22 04/07/24 06:22 Labs: Laboratory Results - last 24 hr 04/05/24 23:00: Urine Color Sherry, Urine Clarity Cloudy, Urine pH 9.0, Ur Specific [place] 1.015, Urine Protein 100 H, Urine Glucose (UA) Normal, Urine Ketones 5 H, Urine Occult Blood 250 H, Urine Nitrite Positive H, Urine Bilirubin Negative, Urine Urobilinogen Normal, Ur Leukocyte Esterase 500 H, Urine RBC 50-100 SEEN, Urine WBC >100 SEEN, Ur Squamous Epith Cells 5-10 SEEN, Other Crystals 2+, Urine Bacteria 4+, Hyaline Casts 5-10 SEEN, Fine Granular Casts 0-5 SEEN, Urine Mucus 0 SEEN 04/07/24 06:22: WBC 10.7, RBC 5.47 H, Hgb 14.4, Hct 44.5, MCV 81.4, MCH 26.3 L, MCHC 32.4, RDW Std Deviation 55.3 H, RDW Coeff of [place] 19.8 H, Plt Count 216, MPV 10.9, Immature Gran % (Auto) 1.000 H, Neut % (Auto) 74.9 H, Lymph % (Auto) 14.9 L, [place] % (Auto) 7.1, Eos % (Auto) 1.4, Baso % (Auto) 0.7, Absolute Neuts (auto) 8.0 H, Absolute Lymphs (auto) 1.60, Nucleated RBC % 0, Sodium 138, Potassium 4.6, Chloride 109 H, Carbon Dioxide 23.0, Anion Gap 6, BUN 32 H, Creatinine 0.78, Estim Creat Clear Calc 39.50, Est GFR (MDRD) Af Amer 91, Est GFR (MDRD) Non-Af 75, BUN/Creatinine Ratio 41.1 H, Glucose 91, Calcium 8.1 L, Total Creatine Kinase 91 Micro: Microbiology 04/05/24 23:00 Urine Catheter - Catheter Urine Culture - Preliminary Gram negative sulaiman 04/05/24 14:08 Mucosa - Nasopharyngeal Coronavirus COVID-19 PCR - Final 04/05/24 14:08 Mucosa - Nasopharyngeal Respiratory Panel (PCR) - Final Physical Exam HEENT head/scalp atraumatic and moist oral mucous membranes Resp normal respiratory effort and no retractions Cardio regular rate, regular rhythm, S1 normal heart sound and S2 normal heart sound GI normal to inspection, nondistended, normoactive bowel sounds, soft to palpation, non-tender and non-distended Extremity normal to inspection and full ROM Neuro Sensorium / Orientation: awake Assessment & Plan Assessment/Plan (1) Rhabdomyolysis: (2) Unresponsive episode: (3) Ventricular tachycardia: PLAN: Plan Acute metabolic encephalopathy Multifactorial including fall with rhabdomyolysis, acute cystitis and subsequent electrolyte abnormalities. head CT negative. Acute mild rhabdomyolysis CPK at highest was 598. Since resolved. 2/ fall, no additional work up at this time. Hypokalemia resolved with replacement. Ventricular tachycardia had firing of her AICD. Since resolved. May have been affected by severe hypokalemia, which has since been corrected. Cardiology input appreciated. 2D echo obtained did show: Normal LV size. The left ventricular ejection fraction is 45 %. Mild to moderate segmental systolic dysfunction (see wall motion). Mild (1+) mitral valve insufficiency. Pulmonary artery systolic pressure is 26 mmHg. UTI: on CTX. UCx showing GNR VTE prophylaxis: not indicated as already on apixaban. Disposition: plan for SNF upon discharge. If no further events, should be medically ready on 04/08. Charges/Coding Visit Charges Inpatient E&M: 05258 Subs Hosp L2
[2024-04-07] MEDS: Clopidogrel Bisulfate 75 MG Tablet PO (09:25)
[2024-04-07] MEDS: Amiodarone 200 MG Tablet PO ×2 (09:25→20:33)
[2024-04-07] MEDS: Galantamine Hydrobromide 4 MG Tablet 8 MG PO ×2 (09:25→16:07)
[2024-04-07] MEDS: Losartan Potassium 25 MG Tablet PO (09:25)
[2024-04-07] MEDS: Isosorbide Mononitrate 60 MG Tablet PO (09:25)
[2024-04-07] MEDS: APIXABAN 5 MG TABLET PO ×2 (09:26→20:33)
[2024-04-07] MEDS: Potassium Chloride Oral Tablet 20 MEQ PO ×2 (09:26→16:08)
[2024-04-07] MEDS: Metoprolol(XL)Succ 50 MG Tablet PO (09:26)
[2024-04-07] MEDS: Menthol/Lanolin/Calamine/Znox 113 GM Tube 1 APPLIC TOPICAL ×3 (09:27→20:34)
[2024-04-07] MEDS: Ensure Plus High Protein 120 ML LIQUID PO ×2 (09:28→20:33)
[2024-04-07] MEDS: Ceftriaxone 1 GM/50 ML BAG IV (09:31)
--- NOTE | 2024-04-07 11:05 | CASEMGMT ---
Social Work- SW spoke with pt nephew to follow up on SNF preferences. Pt nephew selected [facility], [facility], [facility], [facility], and [facility] as F[facility] in order of preference. SW completed referral to TCU and advised [facility] of selctions. SW provided education on LTC vs skilled care to nephew. SW remains available to follow. SHAYY Escalante
[2024-04-07] MEDS: hydrALAZINE 20 MG/ML Vial 10 MG IV (23:41)
[2024-04-08] VITALS: BP 142/66
[2024-04-08 05:03] VITALS: BP 130/100; PULSE 59; RESP 22; TEMP 37.1; O2SAT 97; BMI 20.6
[2024-04-08] MEDS: Levothyroxine 50 MCG Tablet PO (05:15)
[2024-04-08 07:31] LABS: Absolute Lymphocyte Count 1.53 X10^3/uL (0.83-4.51); Absolute Neutrophil Count 7.7 X10^3/uL (2.0-7.7); Basophil# 0.06 X10^3/uL; Basophil% 0.6 % (0-1); Eosinophil# 0.14 X10^3/uL; Eosinophils% 1.3 % (0-5); Hematocrit 40.1 % (37-47); Hemoglobin 13.4 g/dL (12.0-15.0); Lymphocyte # 1.53 X10^3/ul (0.83-4.51); Lymphocyte % 14.6 % (19-41); Mean Corp Hgb Conc 33.4 g/dL (32-36); Mean Corpuscular Hgb 26.4 pg (27.0-32.0); Mean Corpuscular Volume 79.1 fL (81-99); Mean Platelet Vol. 10.3 fl (6.2-12.0); Monocyte# 0.87 X10^3/uL; Monocyte% 8.3 % (0-10); NRBC Flagged by Analyzer 0 % (0-5); Neutrophil % 73.8 % (47-70); Platelet Count 214 K/mm3 (150-450); RBC Distribution Width CV 19.3 % (11.6-14.6); RBC Distribution Width SD 53.6 fl (35.1-43.9); Red Blood Count 5.07 M/mm3 (4.2-5.4); White Blood Count 10.5 K/mm3 (4.4-11.0)
[2024-04-08 08:07] LABS: Anion Gap 5 (5-15); BUN 29 mg/dL (7-18); BUN/Creat Ratio 43.1 RATIO (10-20); Calcium,Total 8.3 mg/dL (8.5-10.1); Chloride 106 mmol/L (98-107); Creatinine, Serum 0.67 mg/dL (0.55-1.02); EST Glomerular Filtration Rate 89 mL/min (>60); Est Glom Filt Rate - Afr Amer 107 mL/min (>60); Glucose 90 mg/dL (74-106); Potassium 3.6 mmol/L (3.5-5.1); Sodium Level 137 mmol/L (136-145)
[2024-04-08] MEDS: Potassium Chloride Oral Tablet 20 MEQ PO (09:01)
[2024-04-08 09:02] VITALS: PULSE 61
[2024-04-08] MEDS: Metoprolol(XL)Succ 50 MG Tablet PO (09:02)
[2024-04-08] MEDS: Galantamine Hydrobromide 4 MG Tablet 8 MG PO (09:02)
[2024-04-08] MEDS: Clopidogrel Bisulfate 75 MG Tablet PO (09:02)
[2024-04-08] MEDS: APIXABAN 5 MG TABLET PO (09:02)
[2024-04-08] MEDS: Amiodarone 200 MG Tablet PO (09:02)
[2024-04-08] MEDS: Isosorbide Mononitrate 60 MG Tablet PO (09:02)
[2024-04-08] MEDS: Losartan Potassium 25 MG Tablet PO (09:02)
[2024-04-08] MEDS: Menthol/Lanolin/Calamine/Znox 113 GM Tube 1 APPLIC TOPICAL (09:03)
--- NOTE | 2024-04-08 09:05 | PN.HOSP_ITS ---
Reason for Visit Reason for Visit: Diagnoses Essential (primary) hypertension (04/03/24) Ischemic cardiomyopathy (04/03/24) Ventricular tachycardia (04/03/24) Rhabdomyolysis (04/03/24) Transient alteration of awareness (04/03/24) Personal history of other diseases of the circulatory system (04/03/24) Presence of coronary angioplasty implant and graft (04/03/24) Presence of automatic (implantable) cardiac defibrillator (04/03/24) Subjective Subjective Denies complaints. Objective Data Objective Data Vital Signs: Vital Signs Temp Pulse Resp BP Pulse Ox O2 Del Method 37.1 C 59 L 22 H 130/100 H 97 Room Air 04/08/24 05:03 04/08/24 05:03 04/08/24 05:03 04/08/24 05:03 04/08/24 05:03 04/08/24 05:03 Oxygen Delivery Method Room Air Weight: 50.938 kg Body Mass Index (BMI) 20.6 Intake & Output: Intake and Output for Last 24 Hours 04/06/24 04/07/24 04/08/24 23:59 23:59 23:59 Intake Total 496.67 / 496.67 50 / 50 Output Total 450 / 450 775 / 775 120 / 120 Balance 46.67 / 46.67 -725 / -725 -120 / -120 Lab / Micro Data 04/08/24 07:04 04/08/24 07:04 Labs: Laboratory Results - last 24 hr 04/08/24 07:04: WBC 10.5, RBC 5.07, Hgb 13.4, Hct 40.1, MCV 79.1 L, MCH 26.4 L, MCHC 33.4, RDW Std Deviation 53.6 H, RDW Coeff of [place] 19.3 H, Plt Count 214, MPV 10.3, Immature Gran % (Auto) 1.400 H, Neut % (Auto) 73.8 H, Lymph % (Auto) 14.6 L, [place] % (Auto) 8.3, Eos % (Auto) 1.3, Baso % (Auto) 0.6, Absolute Neuts (auto) 7.7, Absolute Lymphs (auto) 1.53, Nucleated RBC % 0, Sodium 137, Potassium 3.6, Chloride 106, Carbon Dioxide 25.0, Anion Gap 5, BUN 29 H, Creatinine 0.67, Estim Creat Clear Calc 39.50, Est GFR (MDRD) Af Amer 107, Est GFR (MDRD) Non-Af 89, B UN/Creatinine Ratio 43.1 H, Glucose 90, Calcium 8.3 L Micro: Microbiology 04/05/24 23:00 Urine Catheter - Catheter Urine Culture - Final Proteus mirabilis 04/05/24 14:08 Mucosa - Nasopharyngeal Coronavirus COVID-19 PCR - Final 04/05/24 14:08 Mucosa - Nasopharyngeal Respiratory Panel (PCR) - Final Physical Exam Const alert and no apparent distress HEENT head/scalp atraumatic and moist oral mucous membranes Resp normal respiratory effort, no retractions, no use of accessory muscles and clear to auscultation bilaterally Cardio regular rate, regular rhythm, S1 normal heart sound and S2 normal heart sound GI normal to inspection, nondistended, normoactive bowel sounds, soft to palpation, non-tender and non-distended Extremity normal to inspection and full ROM Assessment & Plan Assessment/Plan (1) Rhabdomyolysis: (2) Unresponsive episode: (3) Ventricular tachycardia: PLAN: Plan Acute metabolic encephalopathy * Multifactorial including fall with rhabdomyolysis, acute cystitis and subsequent electrolyte abnormalities. * head CT negative. Acute mild rhabdomyolysis * CPK at highest was 598. Since resolved. 03/30 fall, no additional work up at this time. Hypokalemia * resolved with replacement. Ventricular tachycardia * had firing of her AICD. Since resolved. May have been affected by severe hypokalemia, which has since been corrected. * Cardiology input appreciated. * 2D echo obtained did show: Normal LV size. The left ventricular ejection fraction is 45 %. Mild to moderate segmental systolic dysfunction (see wall motion). Mild (1+) mitral valve insufficiency. Pulmonary artery systolic pressure is 26 mmHg. Severe protein calorie malnutrition * supplements UTI: on CTX. UCx showing GNR VTE prophylaxis: not indicated as already on apixaban. Disposition: to TCU today.
[2024-04-08] MEDS: Ensure Plus High Protein 120 ML LIQUID PO (09:16)
[2024-04-08] MEDS: Ceftriaxone 1 GM/50 ML BAG IV (09:17)
[2024-04-08 10:19] VITALS: BP 168/86; PULSE 61; RESP 16; TEMP 36.6; O2SAT 97
--- NOTE | 2024-04-08 10:27 | CASEMGMT ---
Addendum entered by Dee Dee Salamanca 04/08/24 12:07: Social Work Pt is ready for discharge to TCU today. EMIGDIO faxed over all discharge paperwork. EMIGDIO let RN know pt can go to TCU today. EMIGDIO let Pat in TCU know she will go to TCU today. EMIGDIO called pt's nephew/DUC Christiansen, let him know pt will go to TCU today. OMI Martinez Original Note: Social Work SW spoke w/Pat in TCU, TCU can take pt when ready. SW texted physician to let him know, SW will await determination on if pt is medically ready for d/c today, yesterday's progress note did indicate today as the anticipated discharge date. EMIGDIO called pt's nephew Kuldip, let him know that pt was accepted into [facility], and now just waiting for the physician on whether or not pt is ready for discharge today. Kuldip states understanding, in agreement w/plan. Plan: [facility]CU, likely later today. OMI Martinez
[2024-04-08 10:37] VITALS: PULSE 55
--- NOTE | 2024-04-08 11:40 | WOUNDNOTE ---
skin photo: left shoulder
--- NOTE | 2024-04-08 11:41 | WOUNDNOTE ---
wound photo: left knee/lower leg
--- NOTE | 2024-04-08 11:42 | WOUNDNOTE ---
wound photo: right foot
--- NOTE | 2024-04-08 11:42 | WOUNDNOTE ---
wound photo: left medial ankle
--- NOTE | 2024-04-08 11:43 | WOUNDNOTE ---
wound photo: right lateral foot
--- NOTE | 2024-04-08 11:44 | WOUNDNOTE ---
wound photo: left lateral ankle
--- NOTE | 2024-04-08 11:45 | WOUNDNOTE ---
wound photo: mid back
--- NOTE | 2024-04-08 11:45 | WOUNDNOTE ---
wound photo: right hip
--- NOTE | 2024-04-08 11:46 | WOUNDNOTE ---
wound photo: right upper back
--- NOTE | 2024-04-08 11:47 | TREXTCAR_ITS ---
Diet Diet Order/Speech Therapy: 04/04/24 13:29 Diet: Regular - General Food consistency:: Easy to Chew Liquid Consistency:: Regular/Thin Type of Dietary Supplement:: Ari Diet Comments: Ari BID Routine Orders/Code Status Code Status: Full Code DC O2, CPAP, BIPAP needs Home O2 Discharge instructions: No Wound(s) Right Scapula: Wound Type: Pressure Injury Left Shoulder: Wound Type: Pressure Injury Midline Mid Back: Wound Type: Pressure Injury Dressing Change: foam dressing Left Lower Back: Wound Type: Pressure Injury Right Hip: Wound Type: Pressure Injury Dressing Change: foam dressing Left Elbow: Wound Type: skin tear/ bruising Left ankle: Wound Type: Skin Tear right upper back: Wound Type: Abrasion Dressing Change: foam dressing left lateral ankle: Wound Type: open blister Dressing Change: Adaptic left medial ankle: Wound Type: open blister Dressing Change: Adaptic right lateral foot: Wound Type: Pressure Injury Dressing Change: dry, well padded dressing Therapies Weight Bearing: Full weight bearing Physical Therapy: Eval and Treat Occupational Therapy: Eval and Treat Problem/Diagnosis (1) Rhabdomyolysis: Status: Acute Code(s): M62.82 - Rhabdomyolysis (2) Unresponsive episode: Status: Acute Code(s): R40.4 - Transient alteration of awareness (3) Ventricular tachycardia: Status: Chronic Code(s): I47.2 - Ventricular tachycardia Plan Acute metabolic encephalopathy * Multifactorial including fall with rhabdomyolysis, acute cystitis and subsequent electrolyte abnormalities. * head CT negative. Acute mild rhabdomyolysis * CPK at highest was 598. Since resolved. 2/2 fall, no additional work up at this time. Hypokalemia * resolved with replacement. Ventricular tachycardia * had firing of her AICD. Since resolved. May have been affected by severe hypokalemia, which has since been corrected. * Cardiology input appreciated. * 2D echo obtained did show: Normal LV size. The left ventricular ejection fraction is 45 %. Mild to moderate segmental systolic dysfunction (see wall motion). Mild (1+) mitral valve insufficiency. Pulmonary artery systolic pressure is 26 mmHg. Severe protein calorie malnutrition * supplements UTI: on CTX. UCx showing GNR VTE prophylaxis: not indicated as already on apixaban. Disposition: to TCU today. Allergies/Procedures Done in Hospital Allergies doxazosin (From Cardura) Adverse Reaction (Severe, Verified 04/03/24 16:25) Itching Influenza Virus Vaccines Adverse Reaction (Severe, Verified 04/03/24 16:25) Other painful hands Procedures: None Type of Care/Length of Stay Estimated LOS: Convalescent Care Less Than 30 days Type of Care Needed: Skilled Rehab Potential: Fair Prognosis: Fair Additional Orders/Day of Discharge Day of Discharge: 04/08/24 Dietary and Speech Recommendations Dietitian Recommendations/Changes: Continue liberal regular diet d/t signs and symptoms of malnutrition. With easy to chew consistency per pt request d/t difficulty chewing. Continue 120ml ensure plus high protein 4x daily with mepass, prefers strawberry. Continue ari BID with meals to promote wound healing. Will monitor weight trends closely. Discharge Plan Admission Admit Date/Time: 04/03/24 20:59 Primary Reason for Your Visit: ventricular tachycardia. Attending Provider: Mitchel Pires Primary Care Provider: Enrike Dobbins Chi Consulting Providers: Marielos Azul; Niall Chacon; Rocco Sanchez Discharge Orders/Prescriptions Prescriptions: New acetaminophen 325 mg Tablet 650 mg PO Q4H PRN PRN (Reason: Fever, pain 1-12/05) Qty: 0 0RF amiodarone 200 mg Tablet 200 mg PO BID Qty: 0 0RF Ensure Plus High Protein 0.08 gram-1.5 kcal/mL Liquid 120 ml PO 4X/DAY Qty: 120 0RF metoprolol succinate 50 mg Tablet Extended Release 24 Hr 50 mg PO DAILY Qty: 0 0RF losartan 25 mg Tablet 25 mg PO DAILY Qty: 0 0RF ceftriaxone 1 gram recon soln 1 g IM DAILY 4 Days Qty: 4 0RF Continued galantamine 4 mg tablet 8 mg PO BIDCM Eliquis 5 mg tablet 5 mg PO BID Qty: 60 6RF levothyroxine 50 mcg tablet 50 mcg PO QDAY potassium chloride [Klor-Con M20] 20 mEq tablet,ER particles/crystals 20 meq PO BID atorvastatin 40 mg Tablet 40 mg PO QHS 30 Days Qty: 30 0RF cholecalciferol (vitamin D3) 25 mcg (1,000 unit) tablet 25 mcg PO DAILY isosorbide mononitrate 30 mg tablet extended release 24 hr 60 mg PO DAILY Qty: 180 3RF Rx Instructions: Must be white pill not red pill nitroglycerin 0.4 mg tablet, sublingual 0.4 mg SUBLINGUAL UD MDD Q5min prn PRN (Reason: Cardiac/Chest Pain) Qty: 25 3RF clopidogrel 75 mg tablet 75 mg PO DAILY Qty: 90 3RF Discontinued amiodarone 200 mg tablet 200 mg PO QDAY Qty: 90 3RF mirtazapine 7.5 mg tablet 7.5 mg PO QHS alprazolam 0.25 MG tablet 0.25 tab PO QHS PRN (Reason: jaw pain) Patient Comments: for jaw, takes in the late evening losartan 100 mg Tablet 100 mg PO DAILY 30 Days Qty: 30 0RF metoprolol succinate 200 mg tablet extended release 24 hr 200 mg PO DAILY hydrochlorothiazide 25 mg tablet See Rx Instructions .ROUTE .COMPLEX Qty: 90 3RF Dose Instruction: TAKE 1 TAB BY MOUTH DAILY Rx Instructions: TAKE 1 TAB BY MOUTH DAILY Referrals / Follow Up: [facility] [Provider Group] - Within 1 Month Enrike Dobbins Chi, MD [Primary Care Provider] - Within 1 Week Disposition Disposition (needs filled in before D/C Order can be placed): Longterm Facility
--- NOTE | 2024-04-08 11:59 | DS.PCM_ITS ---
Providers Date of Admission: 04/03/24 Primary Care Physician: Dr. Enrike Dobbins MD Consultations 04/03/24 23:28 Consult: Cardiology Routine Consulting Provider: Rocco Sanchez Reason for Consult: Unresponsive episode with VT, AICD without firing. EMERGENT Consult: No MD Notified: Yes Date Notified: 04/03/24 Time Notified: 21:18 Method of Notification: ED Physician Initiated 04/05/24 21:33 Consult: Onc/Wound/pediatric social worker Routine Comment: Reason for Consult:: multi wounds on back, hip, and legs Reason For Visit: RHABDO UNRESPONSIVE EPISODE Diagnosis Discharge Diagnosis (1) Rhabdomyolysis: Status: Acute Code(s): M62.82 - Rhabdomyolysis (2) Unresponsive episode: Status: Acute Code(s): R40.4 - Transient alteration of awareness (3) Ventricular tachycardia: Status: Chronic Code(s): I47.2 - Ventricular tachycardia Plan Acute metabolic encephalopathy * Multifactorial including fall with rhabdomyolysis, acute cystitis and subsequent electrolyte abnormalities. * head CT negative. Acute mild rhabdomyolysis * CPK at highest was 598. Since resolved. / fall, no additional work up at this time. Hypokalemia * resolved with replacement. Ventricular tachycardia * had firing of her AICD. Since resolved. May have been affected by severe hypokalemia, which has since been corrected. * Cardiology input appreciated. * 2D echo obtained did show: Normal LV size. The left ventricular ejection fraction is 45 %. Mild to moderate segmental systolic dysfunction (see wall motion). Mild (1+) mitral valve insufficiency. Pulmonary artery systolic pressure is 26 mmHg. Severe protein calorie malnutrition * supplements UTI: on CTX. UCx showing GNR VTE prophylaxis: not indicated as already on apixaban. Disposition: to TCU today. Medications at Discharge Home Medications isosorbide mononitrate 30 mg tablet,extended release 24 hr 60 mg (2 x 30 mg) PO DAILY heart #180 tabs 04/25/23 potassium chloride 20 mEq tablet,extended release(part/cryst) (Klor-Con M) 20 meq PO BID HYPOKALEMIA 05/23/23 atorvastatin 40 mg tablet 40 mg PO QHS cholesterol 30 days #30 tabs 06/27/23 galantamine 4 mg tablet 8 mg PO BIDCM memory 08/01/23 apixaban 5 mg tablet (Eliquis) 5 mg PO BID blood thinner #60 tabs 01/03/24 clopidogrel 75 mg tablet 75 mg PO DAILY #90 tabs 01/31/24 nitroglycerin 0.4 mg sublingual tablet 0.4 mg sublingual UD PRN Cardiac/Chest Pain #25 tabs 01/31/24 levothyroxine 50 mcg tablet 50 mcg PO QDAY 02/04/24 cholecalciferol (vitamin D3) 25 mcg (1,000 unit) tablet 25 mcg PO DAILY 04/03/24 acetaminophen 325 mg tablet 650 mg (2 x 325 mg) PO Q4H PRN PRN Fever, pain 1- 12/05 #0 tabs 04/08/24 amiodarone 200 mg tablet 200 mg PO BID #0 tabs 04/08/24 ceftriaxone 1 gram solution for injection 1 g IM DAILY 4 days #4 ea 04/08/24 food supplemt, lactose-reduced 0.08 gram-1.5 kcal/mL oral liquid (Ensure Plus High Protein) 120 ml PO 4X/DAY #120 mL 04/08/24 losartan 25 mg tablet 25 mg PO DAILY #0 tabs 04/08/24 metoprolol succinate 50 mg tablet,extended release 24 hr 50 mg PO DAILY #0 tabs 04/08/24 Hospital Course Operations None Procedures 2-D Echocardiogram Summary of Care Provided Minutes Spent on Discharge: 32 Hospital Course: This is a 83-year-old female presents with syncope. Patient was found to have defibrillator firing due to ventricular tachycardia. This is likely due to severe hypocalcemia which was replaced and had no further events. Patient was also found to have a Proteus urinary tract infection and had been on ceftriaxone and will continue with that upon discharge. The ceftriaxone be IM rather than IV that she has been receiving here. There were oral options but those would be incompatible with the amiodarone that she takes. Patient's medications were adjusted including her amiodarone was increased. Patient has an appointment already scheduled for May with [facility]. Recommendation is to try to see if she can follow-up sooner if possible. Weight / BMI Weight Weight: 50.938 kg Body Mass Index (BMI) 20.6 ABG / Lab / Microbiology Data 04/08/24 07:04 04/08/24 07:04 Laboratory: Laboratory Results - last 24 hr 04/08/24 07:04: WBC 10.5, RBC 5.07, Hgb 13.4, Hct 40.1, MCV 79.1 L, MCH 26.4 L, MCHC 33.4, RDW Std Deviation 53.6 H, RDW Coeff of [place] 19.3 H, Plt Count 214, MPV 10.3, Immature Gran % (Auto) 1.400 H, Neut % (Auto) 73.8 H, Lymph % (Auto) 14.6 L, [place] % (Auto) 8.3, Eos % (Auto) 1.3, Baso % (Auto) 0.6, Absolute Neuts (auto) 7.7, Absolute Lymphs (auto) 1.53, Nucleated RBC % 0, Sodium 137, Potassium 3.6, Chloride 106, Carbon Dioxide 25.0, Anion Gap 5, BUN 29 H, Creatinine 0.67, Estim Creat Clear Calc 39.50, Est GFR (MDRD) Af Amer 107, Est GFR (MDRD) Non-Af 89, B UN/Creatinine Ratio 43.1 H, Glucose 90, Calcium 8.3 L Microbiology: Microbiology 04/05/24 23:00 Urine Catheter - Catheter Urine Culture - Final Proteus mirabilis 04/05/24 14:08 Mucosa - Nasopharyngeal Coronavirus COVID-19 PCR - Final 04/05/24 14:08 Mucosa - Nasopharyngeal Respiratory Panel (PCR) - Final D/C Instructions Discharge Diet: No restrictions DC O2, CPAP, BIPAP Needs Home O2 Discharge instructions: No Meaningful Use Info Meaningful Use Meaningful Use Diagnoses (Choose all that apply): None applicable Ischemic Stroke Statin Dosing Therapy Reference: STATIN DOSE THERAPY REFERENCE: * Patients > 75 years receive moderate or high dose statin therapy. * Patients 75 years or YOUNGER should receive HIGH intensity statin dose unless contraindicated. You will be required to document reason for non-treatment if statin daily dose does not meet guidelines. HIGH DOSE STATIN THERAPY DAILY Atorvastatin > than or = to 40 mg Rosuvastatin > than or = to 20 mg Amlodipine + Atorvastatin > than or = to 2.5/40 mg Ezetimibe + Simvastatin 10/80 mg Simvastatin 80mg Discharge Plan Admission Admit Date/Time: 04/03/24 20:59 Primary Reason for Your Visit: ventricular tachycardia. Attending Provider: Mitchel Pires Primary Care Provider: Enrike Dobbins Chi Consulting Providers: Marielos Azlu; Niall Chacon; Rocco Sanchez Discharge Orders/Prescriptions Prescriptions: New acetaminophen 325 mg Tablet 650 mg PO Q4H PRN PRN (Reason: Fever, pain 1-12/05) Qty: 0 0RF amiodarone 200 mg Tablet 200 mg PO BID Qty: 0 0RF Ensure Plus High Protein 0.08 gram-1.5 kcal/mL Liquid 120 ml PO 4X/DAY Qty: 120 0RF metoprolol succinate 50 mg Tablet Extended Release 24 Hr 50 mg PO DAILY Qty: 0 0RF losartan 25 mg Tablet 25 mg PO DAILY Qty: 0 0RF ceftriaxone 1 gram recon soln 1 g IM DAILY 4 Days Qty: 4 0RF Continued galantamine 4 mg tablet 8 mg PO BIDCM Eliquis 5 mg tablet 5 mg PO BID Qty: 60 6RF levothyroxine 50 mcg tablet 50 mcg PO QDAY potassium chloride [Klor-Con M20] 20 mEq tablet,ER particles/crystals 20 meq PO BID atorvastatin 40 mg Tablet 40 mg PO QHS 30 Days Qty: 30 0RF cholecalciferol (vitamin D3) 25 mcg (1,000 unit) tablet 25 mcg PO DAILY isosorbide mononitrate 30 mg tablet extended release 24 hr 60 mg PO DAILY Qty: 180 3RF Rx Instructions: Must be white pill not red pill nitroglycerin 0.4 mg tablet, sublingual 0.4 mg SUBLINGUAL UD MDD Q5min prn PRN (Reason: Cardiac/Chest Pain) Qty: 25 3RF clopidogrel 75 mg tablet 75 mg PO DAILY Qty: 90 3RF Discontinued amiodarone 200 mg tablet 200 mg PO QDAY Qty: 90 3RF mirtazapine 7.5 mg tablet 7.5 mg PO QHS alprazolam 0.25 MG tablet 0.25 tab PO QHS PRN (Reason: jaw pain) Patient Comments: for jaw, takes in the late evening losartan 100 mg Tablet 100 mg PO DAILY 30 Days Qty: 30 0RF metoprolol succinate 200 mg tablet extended release 24 hr 200 mg PO DAILY hydrochlorothiazide 25 mg tablet See Rx Instructions .ROUTE .COMPLEX Qty: 90 3RF Dose Instruction: TAKE 1 TAB BY MOUTH DAILY Rx Instructions: TAKE 1 TAB BY MOUTH DAILY Referrals / Follow Up: [facility] [Provider Group] - Within 1 Month Enrike Dobbins Chi, MD [Primary Care Provider] - Within 1 Week Disposition Disposition (needs filled in before D/C Order can be placed): Custodial Facility Charges/Coding Visit Charges Inpatient E&M: 73004 Disch Hosp >30min
[2024-04-08 12:09] VITALS: BP 125/77; PULSE 55; RESP 24; TEMP 36.5; O2SAT 97
== END 2024-04-08 12:35 | disposition skilled nursing facility (03) | DRG 308 ==
LOC: ED 17:29 → ICU 23:18
PROVIDERS: Internal Medicine; Admitting Provider Family Medicine; Emergency Provider Surgery; PCP Family Medicine Geriatric Medicine; Referring Provider Surgery
DX: I47.20 Ventricular tachycardia, unspecified (principal); E43 Unspecified severe protein-calorie malnutrition; G93.41 Metabolic encephalopathy; M62.82 Rhabdomyolysis; E87.0 Hyperosmolality and hypernatremia; E87.20 Acidosis, unspecified; Z68.1 Body mass index [BMI] 19.9 or less, adult; N30.00 Acute cystitis without hematuria; E83.39 Other disorders of phosphorus metabolism; E86.0 Dehydration; N18.30 Chronic kidney disease, stage 3 unspecified; G30.9 Alzheimer's disease, unspecified; I12.9 Hypertensive chronic kidney disease with stage 1 through stage 4 chronic kidney disease, or unspecified chronic kidney disease; F32.A Depression, unspecified; I48.0 Paroxysmal atrial fibrillation; I25.10 Atherosclerotic heart disease of native coronary artery without angina pectoris; E78.00 Pure hypercholesterolemia, unspecified; I25.5 Ischemic cardiomyopathy; E87.6 Hypokalemia; F02.80 Dementia in other diseases classified elsewhere, unspecified severity, without behavioral disturbance, psychotic disturbance, mood disturbance, and anxiety; F17.210 Nicotine dependence, cigarettes, uncomplicated; E80.7 Disorder of bilirubin metabolism, unspecified; E87.8 Other disorders of electrolyte and fluid balance, not elsewhere classified; F41.9 Anxiety disorder, unspecified; B96.4 Proteus (mirabilis) (morganii) as the cause of diseases classified elsewhere; R62.7 Adult failure to thrive; Z79.01 Long term (current) use of anticoagulants; Z79.02 Long term (current) use of antithrombotics/antiplatelets; Z79.890 Hormone replacement therapy; Z79.899 Other long term (current) drug therapy; Z86.718 Personal history of other venous thrombosis and embolism; Z95.810 Presence of automatic (implantable) cardiac defibrillator; Z95.5 Presence of coronary angioplasty implant and graft
CPT/HCPCS: 36415; 51702; 70450; 71045; 72125; 80048; 80053; 81001; 82550; 82803; 82962; 83605; 83735; 84100; 84145; 84443; 84484; 85025; 85610; 85730; 87077; 87086; 87088; 87186; 87633; 87635; 93005; 93308; 93970; 94668; 97162; 97166; 97530; 97802; 99285; Q9957; A4216

== ENCOUNTER 2024-04-08 12:43 | Inpatient (IN) | payer MEDICARE, BC, SELFPAY ==
[2024-04-08 13:10] VITALS: BP 128/64; PULSE 55; RESP 16; TEMP 36.7; O2SAT 97; BMI 19.7
[2024-04-08 15:00] VITALS: PULSE 55; RESP 16; O2SAT 97
--- NOTE | 2024-04-08 16:30 | NURSING ---
UPDATED FAMILY ON A STAFF MEMBER TESTED POSITIVE FOR COVID. UPDATED PT ALSO,PT STATED SHE UNDERSTOOD.
--- NOTE | 2024-04-08 16:50 | NURSING ---
PT ARRIVED TO UNIT AT 1245. ANGELA REMOVED AT 12 NOON. PT HAS NOT VOIDED YET AND BLADDER SCANNED FOR 293. WILL CONTINUE TO MONITOR.
[2024-04-08] MEDS: Galantamine Hydrobromide 4 MG Tablet 8 MG PO (17:59)
[2024-04-08] MEDS: Ensure Plus High Protein 120 ML LIQUID PO ×2 (18:01→20:41)
[2024-04-08] MEDS: Menthol/Lanolin/Calamine/Znox 113 GM Tube 1 APPLIC TOPICAL (20:14)
[2024-04-08] MEDS: Amiodarone 200 MG Tablet PO (20:15)
[2024-04-08] MEDS: Potassium Chloride Oral Tablet 20 MEQ PO (20:16)
[2024-04-08] MEDS: Atorvastatin Calcium 40 MG Tablet PO (20:16)
[2024-04-08] MEDS: APIXABAN 5 MG TABLET PO (20:16)
--- NOTE | 2024-04-08 20:47 | PCM.HP.STD ---
HPI - General General Date of Admission: 04/08/24 Date of Service: 04/08/24 Chief Complaint: Here for rehabilitation. HPI Narrative STANLEY RODRIGUEZ, is a 83 Female who presents with followin04/03/2024 [facility] ED with fall. Found down, confused, stuck in bathtub. Patient in bathtub for 3 days, found in empty bathtub with urine. Hungry, thirsty, diffuse body aches. Multiple pressure wounds, hypothermic, smells of urine. CK 598. Urinalysis negative. Transient VTach, defibrillator fired, amiodarone drip. 04/03/2024 Admit to ICU. Replete electrolytes, Amiodarone drip for VTach. PT/OT. IV fluids for rhabdomyolysis. 04/04/2024 IV fluids, serial CK for rhabdomyolysis. IV fluids for hyperchloremic hypernatremia. Hypokalemia corrected. Amiodarone, Eliquis for atrial fibrillation. Hold Atorvastatin, Hold HCTZ. 04/04/2024 Echo Normal LV size. LVEF 45%. Mild to moderate segmental systolic dysfunction. 04/05/2024 Amiodarone drip to Amiodarone oral. IV fluids, serial CK for rhabdomyolysis. 04/06/2024 Fever, urinalysis, consistent with UTI, Ceftriaxone IV given. IV fluids, serial CK for rhabdomyolysis. 04/07/2024 [address] further defibrillatory events. CT head negative. Rhabdomyolysis resolved. Plan SNF on discharge. 04/08/2024 Admit to TCU with debility, here for rehabilitation, strengthening, prior to discharge home. [facility] Medical History (Updated 04/08/24 @ 20:[address] Enrike Dobbins MD) Hypothyroidism Atrial fibrillation Loss of hearing Thyroid disease Smoker History of atrial fibrillation Carotid stenosis, right History of atrial fibrillation Preoperative cardiovascular examination Wears glasses Wears dentures Cancer Anxiety Back pain Bladder disease High cholesterol TIA (transient ischemic attack) Difficulty chewing Former smoker History of echocardiogram History of stress test History of pacemaker Cardiology follow-up encounter History of heart attack History of irregular heartbeat Aneurysm, carotid artery, internal Carotid stenosis, right Rash Essential hypertension Leukocytosis Paroxysmal atrial fibrillation Presence of stent in coronary artery (~10/02/17) Essential hypertension ICD (implantable cardioverter-defibrillator) discharge Chest pain Chronic dental infection Abnormal stress test GI bleed Hypokalemia Bladder cancer Atherosclerotic heart disease of [place] coronary artery without angina pectoris Ischemic cardiomyopathy Ventricular tachycardia Presence of cardiac defibrillator (~2005) Long-term use of high-risk medication Tobacco abuse Erythrocytosis Old myocardial infarction (~1997) Back problem Arthritis Bladder tumor Polycythemia vera Hypocalcemia Hyperlipidemia Cellulitis of right upper extremity 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 Polycythemia Home Medications ?Medication ?Instructions ?Recorded ?Last Taken ?Type isosorbide mononitrate 30 mg 60 mg (2 x 30 mg) PO DAILY heart 04/25/23 06/12/23 Rx tablet,extended release 24 hr #180 tabs potassium chloride 20 mEq 20 meq PO BID HYPOKALEMIA 05/23/23 06/11/23 History tablet,extended release(part/cryst) (Klor-Con M) atorvastatin 40 mg tablet 40 mg PO QHS cholesterol 30 days 06/27/23 Unknown Rx #30 tabs galantamine 4 mg tablet 8 mg PO BIDCM memory 08/01/23 Unknown History apixaban 5 mg tablet (Eliquis) 5 mg PO BID blood thinner #60 tabs 01/03/24 Unknown Rx clopidogrel 75 mg tablet 75 mg PO DAILY prevent clots #90 01/31/24 Unknown Rx tabs nitroglycerin 0.4 mg sublingual 0.4 mg sublingual UD PRN 01/31/24 Unknown Rx tablet Cardiac/Chest Pain #25 tabs levothyroxine 50 mcg tablet 50 mcg PO QDAY thyroid 02/04/24 Unknown History cholecalciferol (vitamin D3) 25 25 mcg PO DAILY supplement 04/03/24 Unknown History mcg (1,000 unit) tablet acetaminophen 325 mg tablet 650 mg (2 x 325 mg) PO Q4H PRN PRN 04/08/24 Unknown Rx Fever, pain 1-12/05 #0 tabs amiodarone 200 mg tablet 200 mg PO BID heart #0 tabs 04/08/24 Unknown Rx ceftriaxone 1 gram solution for 1 g IM DAILY infection 4 days #4 ea 04/08/24 Unknown Rx injection food supplemt, lactose-reduced 120 ml PO 4X/DAY supplement #120 mL 04/08/24 Unknown Rx 0.08 gram-1.5 kcal/mL oral liquid (Ensure Plus High Protein) losartan 25 mg tablet 25 mg PO DAILY BP #0 tabs 04/08/24 Unknown Rx metoprolol succinate 50 mg 50 mg PO DAILY pulse/BP #0 tabs 04/08/24 Unknown Rx tablet,extended release 24 hr Allergy/AdvReac Type Severity Reaction Status Date / Time doxazosin (From Cardura) AdvReac Severe Itching Verified 04/03/24 16:25 Influenza Virus Vaccines AdvReac Severe Other Verified 04/03/24 16:25 Family History Mother Heart disease Myocardial infarction Brother Cancer CAD (coronary artery disease) Brother CAD (coronary artery disease) Brother CAD (coronary artery disease) Surgical History History of cardiac catheterization History of bladder surgery History of carotid endarterectomy History of right-sided carotid endarterectomy History of implantable cardiac defibrillator (ICD) Presence of coronary angioplasty implant and graft (01/03/24) History of cataract extraction History of back surgery History of cholecystectomy History of mandibular surgery History of mandibular surgery ICD SURGERY History of back surgery Hx of cholecystectomy H/O cataract extraction Social History household members: none Smoking Status: Current some day smoker tobacco type: cigarettes how long ago did patient quit smokin years ago alcohol intake: current alcohol intake frequency: holidays/special occasions only Alcohol type: wine caffeine: Yes Type: coffee Number of servings: 4 ROS Constitutional Constitutional: Reports weakness; Denies chills, fever(s) or weight gain ENT HEENT: Denies headache(s), nasal congestion or nasal discharge Cardiovascular Cardiovascular: Denies chest pain or palpitations Respiratory/Chest Respiratory/Chest: Denies cough, excessive phlegm production or shortness of breath with exertion Gastrointestinal Gastrointestinal: Denies abdominal pain, nausea or vomiting Genitourinary Genitourinary: Denies dysuria Musculoskeletal Musculoskeletal: Denies joint pain or joint swelling Integumentary Integumentary: Denies rash or wounds Neurologic Neurologic: Denies focal weakness, numbness or tingling Psychiatric Psychiatric: Denies anxiety, auditory hallucinations, depression, homicidal ideation or suicidal ideation Vital Signs Vital Signs Vital Signs: 04/08/24 13:10 04/08/24 15:00 Temperature 98.0 F Temperature Source Temporal Pulse Rate 55 L 55 L Pulse Rhythm Regular Pulse Strength Normal (2+) Respiratory Rate 16 16 Respiratory Effort Normal Non-Labored Respiratory Depth Normal Respiratory Pattern Normal Blood Pressure 128/64 H Blood Pressure Mean 85 Blood Pressure Source Monitor Blood Pressure Position Semi-Fowlers Blood Pressure Location Left Arm Pulse Ox 97 97 Oxygen Delivery Method Room Air Room Air Weight Weight: 47.287 kg Body Mass Index (BMI) 19.7 Physical Exam Const Constitutional Narrative: Drowsy, but arousable. General Appearance: cooperative HEENT normocephalic Eyes PERRL and EOMs intact bilaterally Neck supple, no JVD and no carotid bruits Resp normal respiratory effort, normal air movement and clear to auscultation bilaterally Cardio regular rate and regular rhythm GI normal to inspection, nondistended, normoactive bowel sounds, non-tender and non-distended Extremity normal capillary refill General Extremity: Negative for edema Skin Skin Narrative: per wound nurse. Psych affect normal Appearance: appropriate Assessment & Plan Assessment/Plan (1) Debility: (2) Unresponsive episode: (3) Ventricular tachycardia: (4) Rhabdomyolysis: (5) Urinary tract infection: (6) Essential hypertension: (7) Hyperlipidemia: QUALIFIERS: Hyperlipidemia type: unspecified Qualified Code(s): E78.5 - Hyperlipidemia, unspecified (8) Coronary artery disease: (9) Atrial fibrillation: QUALIFIERS: Atrial fibrillation type: paroxysmal Qualified Code(s): I48.0 - Paroxysmal atrial fibrillation (10) Hypothyroidism: (11) Appetite loss: PLAN: Plan 83 year old female with below past medical history hospitalized for unresponsive episode 2/2 ventricular tachycardia, complicated by rhabdomyolysis, urinary tract infection, admitted to TCU with debility, here for rehabilitation, strengthening, prior to discharge home. Debility - PT/OT. Pain - Tylenol 1000mg q6 prn pain (1-10). Bowel - senna/colace 1 tablet bid, Magnesium citrate 300mL po x 1 prn.. Adult immunization - Administer pneumonia vaccine, covid vaccine, flu vaccine as appropriate. DVT prophylaxis - on Eliquis. Atrial fibrillation - Metoprolol succinate 25mg daily, Amiodarone 200mg bid, Eliquis 5mg bid. Hyperlipidemia - Atorvastatin 40mg qhs. Drug resistant P. Mirabilis UTI - Ceftriaxone 1gm iv q24 thru 04/12/2024. Coronary artery disease - Metoprolol succinate 25mg daily, Losartan 25mg daily, Isosorbide mn 60mg daily, Plavix 75mg daily, NTG 0.4mg sl daily prn. Nutrition - Ensure Plus 120mL 4x/day. Hypothyroidism - Levothyroxine 50mcg daily. Skin irritation - Calmoseptine topical bid. Hypokalemia - KCL 20meq bid.
[2024-04-09] MEDS: 0.9% Saline Lock 10 ML Syringe IV ×3 (05:10→20:28)
[2024-04-09] MEDS: Levothyroxine 50 MCG Tablet PO (05:10)
[2024-04-09 05:55] LABS: Absolute Lymphocyte Count 1.58 X10^3/uL (0.83-4.51); Absolute Neutrophil Count 6.6 X10^3/uL (2.0-7.7); Basophil# 0.06 X10^3/uL; Basophil% 0.6 % (0-1); Eosinophil# 0.13 X10^3/uL; Eosinophils% 1.4 % (0-5); Hematocrit 39.6 % (37-47); Hemoglobin 12.8 g/dL (12.0-15.0); Lymphocyte # 1.58 X10^3/ul (0.83-4.51); Lymphocyte % 16.9 % (19-41); Mean Corp Hgb Conc 32.3 g/dL (32-36); Mean Corpuscular Volume 80.3 fL (81-99); Mean Platelet Vol. 10.4 fl (6.2-12.0); Monocyte# 0.88 X10^3/uL; Monocyte% 9.4 % (0-10); NRBC Flagged by Analyzer 0 % (0-5); Neutrophil # 6.59 X10^3/uL (2.7-7.7); Neutrophil % 70.7 % (47-70); Platelet Count 254 K/mm3 (150-450); RBC Distribution Width CV 18.9 % (11.6-14.6); RBC Distribution Width SD 53.6 fl (35.1-43.9); Red Blood Count 4.93 M/mm3 (4.2-5.4); White Blood Count 9.3 K/mm3 (4.4-11.0)
[2024-04-09 06:05] LABS: Anion Gap 8 (5-15); BUN 32 mg/dL (7-18); BUN/Creat Ratio 39.6 RATIO (10-20); Chloride 107 mmol/L (98-107); Creatinine, Serum 0.81 mg/dL (0.55-1.02); EST Glomerular Filtration Rate 72 mL/min (>60); Est Glom Filt Rate - Afr Amer 87 mL/min (>60); Glucose 90 mg/dL (74-106); Potassium 4.4 mmol/L (3.5-5.1); Sodium Level 139 mmol/L (136-145)
--- NOTE | 2024-04-09 08:36 | WOUNDNOTE ---
wound photo: left medial ankle
--- NOTE | 2024-04-09 08:37 | WOUNDNOTE ---
wound photo: left lateral ankle
--- NOTE | 2024-04-09 08:37 | WOUNDNOTE ---
wound photo: right foot
--- NOTE | 2024-04-09 08:38 | WOUNDNOTE ---
wound photo: right lateral foot
--- NOTE | 2024-04-09 09:34 | CASEMGMT ---
Social Work SW reviewed chart and it was noting pt is a poor historian. SW phoned nephew to verify information for assessment. See assessment for details. Nephew shared the goal is for pt to transfer to LTC with preferences being [facility] and [facility]. Nephew has not pursued anything yet. SW to assist with referral process after a few days of clinical information has been received. Nephew noted pt is a smoker and would like to keep smoking. SW to inquire to SNFs about being a smoking facility. Nephew shared history of pt's decline and events since pt's last TCU admission May-June 2023. Nephew considered that DC home as the last time and considering pt fell in the bathtub and was not found until about 1.5 days later, with all variables considered, nephew and family are electing pt needing LTP. Nephew shared pt is stubborn and will put up a fight but pt has dx of Alzheimer's and is no longer safe at home alone. Nephew shared he has taken over pt's finances, but family is relying on pt to take medications appropriately, which she is not doing, per the nephew. 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 Nephew also reports pt being malnourished, despite him prompting her to eat meals and grocery shopping for her. Nephew also shared great concern with pt being able to drive again. Nephew provided several examples and stories of pt being un-equipped to drive. Nephew shared he is a retired [employer] Cotton Farm[employer], though he does own a business and assists pt with transportation as much as possible. Though, the amount of assistance pt requires overall is becoming too much for nephew. SW provided active listening and appreciative of history. SW entered ST order to assist in cognitive evaluation, per nephew's request to ensure pt is not able to make informed decision for discharge. Nephew stated pt thrived in TCU last time because she was taking her medications as ordered, eating, and getting stronger. SW confirmed that is common and supports the nephew's request for LTP. SW educated to Medicare benefit and this worker to assist with DC plans. IDT to provide recommendations and share with pt. Nephew appreciative. SW will continue to follow for DC planning and support. Time spent: 35 minutes Claudine Garcia MSW AIRCRAFT POWERTRAIN REPAIRER
[2024-04-09 10:00] VITALS: BP 100/58; PULSE 56; RESP 16; O2SAT 97
[2024-04-09] MEDS: Ceftriaxone 1 GM/50 mL Premix Q24 IV (10:19)
[2024-04-09] MEDS: Calcium Carbonate 500 MG Tablet PO ×2 (10:21→16:46)
[2024-04-09] MEDS: Menthol/Lanolin/Calamine/Znox 113 GM Tube 1 APPLIC TOPICAL ×2 (10:21→20:33)
[2024-04-09] MEDS: Potassium Chloride Oral Tablet 20 MEQ PO ×2 (10:22→20:27)
[2024-04-09] MEDS: APIXABAN 5 MG TABLET PO ×2 (10:22→20:28)
[2024-04-09] MEDS: Senna/Docusate Sodium 1 Tablet PO ×2 (10:26→20:28)
[2024-04-09] MEDS: Isosorbide Mononitrate 60 MG Tablet PO (10:31)
[2024-04-09] MEDS: Clopidogrel Bisulfate 75 MG Tablet PO (10:32)
[2024-04-09] MEDS: Amiodarone 200 MG Tablet PO ×2 (10:32→20:27)
[2024-04-09] MEDS: Losartan Potassium 25 MG Tablet PO (10:32)
[2024-04-09] MEDS: Ensure Plus High Protein 120 ML LIQUID PO ×3 (10:34→16:45)
[2024-04-09 10:35] VITALS: BP 100/58; PULSE 56
[2024-04-09] MEDS: Metoprolol(XL)Succ 25 MG Tablet PO (10:35)
[2024-04-09] MEDS: Tuberculin,Purif.prot.deriv. 50 TU/ML Vial 0.1 ML ID (10:43)
[2024-04-09] MEDS: 0.9% Normal Saline (100mL Bag) 100 ML 15 ML IV (11:02)
--- NOTE | 2024-04-09 15:04 | NURSING ---
AT 1300 PT MEDIUM INCONTINENT,BLADDER SCANNED FOR 103. WILL CONTINUE TO MONITOR AND VOIDING TRAILS.
--- NOTE | 2024-04-09 15:06 | NURSING ---
KRISTINRN/WOUND NURSE IN TO CHANGE PT DRESSINGS TO SYBIL FEET.
--- NOTE | 2024-04-09 15:22 | NURSING ---
Professional Benefits Sales Consultant Note; Activity Asset: Chantale Landaverde needs reminded of daily activities. She enjoys puzzles, tv and will read. He family will visits and she welcomes visits w/the ward nurse and therapy dog when available. Staff will encourage social activities, remind her of weekly activities and respect her right to say no.
[2024-04-09 16:00] VITALS: TEMP 36.7
[2024-04-09] MEDS: Atorvastatin Calcium 40 MG Tablet PO (20:27)
[2024-04-10] MEDS: Ensure Plus High Protein 120 ML LIQUID PO ×3 (05:31→17:54)
[2024-04-10] MEDS: Levothyroxine 50 MCG Tablet PO (05:31)
[2024-04-10] MEDS: Menthol/Lanolin/Calamine/Znox 113 GM Tube 1 APPLIC TOPICAL ×2 (09:32→19:57)
[2024-04-10] MEDS: Calcium Carbonate 500 MG Tablet PO ×2 (09:32→17:55)
[2024-04-10] MEDS: Amiodarone 200 MG Tablet PO ×2 (09:32→20:00)
[2024-04-10] MEDS: Losartan Potassium 25 MG Tablet PO (09:32)
[2024-04-10] MEDS: Isosorbide Mononitrate 60 MG Tablet PO (09:33)
[2024-04-10] MEDS: Clopidogrel Bisulfate 75 MG Tablet PO (09:33)
[2024-04-10] MEDS: Potassium Chloride Oral Tablet 20 MEQ PO ×2 (09:33→20:00)
[2024-04-10] MEDS: APIXABAN 5 MG TABLET PO ×2 (09:33→20:00)
[2024-04-10 09:34] VITALS: BP 159/76; PULSE 59
[2024-04-10] MEDS: Metoprolol(XL)Succ 25 MG Tablet PO (09:34)
[2024-04-10] MEDS: Acetaminophen 500 MG Tablet 1000 MG PO (09:39)
[2024-04-10] MEDS: 0.9% Saline Lock 10 ML Syringe IV (09:42)
[2024-04-10 09:43] VITALS: BP 159/76; PULSE 59; RESP 16; O2SAT 97
[2024-04-10] MEDS: Ceftriaxone 1 GM/50 mL Premix Q24 IV (09:54)
--- NOTE | 2024-04-10 13:44 | PHA.CONS_ITS ---
TCU RX Drug Regimen Review Subjective/Objective Subjective/Objective Subjective: 83 YOF admitted to TCU 04/08/24 s/p hospitalization at [facility]. Patient was admitted after a fall at home resulting in rhabdomyolysis. Hospitalization also complicated by a UTI, for which she was started on Ceftriaxone. Patient admitted to TCU for completion of antibiotics, strengthening and rehabilitation prior to discharge home. Objective: Allergies doxazosin (From Cardura) Adverse Reaction (Severe, Verified 04/03/24 16:25) Itching Influenza Virus Vaccines Adverse Reaction (Severe, Verified 04/03/24 16:25) Other painful hands Current Medications Generic Name Dose Route Start Last Admin Trade Name Freq PRN Reason Stop Dose Admin Acetaminophen 1,000 mg 04/08/24 20:42 04/10/24 09:39 Acetaminophen 500 Mg Tablet PO 1,000 mg Q6H PRN PRN Administration Pain Score 1-10 Amiodarone HCl 200 mg 04/08/24 22:00 04/10/24 09:32 Amiodarone 200 Mg Tablet PO 200 mg BID HILARY Administration Apixaban 5 mg 04/08/24 22:00 04/10/24 09:33 Apixaban 5 Mg Tablet PO 5 mg BID HILARY Administration Atorvastatin Calcium 40 mg 04/08/24 22:00 04/09/24 20:27 Atorvastatin Calcium 40 Mg Tablet PO 40 mg QHS HILARY Administration Calamine/Phenol 1 applic 04/08/24 22:00 04/10/24 09:32 Menthol/Lanolin/Calamine/Znox 113 Gm Tube TOPICAL 1 applic BID HILARY Administration Protocol Calcium Carbonate 500 mg 04/09/24 08:00 04/10/24 09:32 Calcium Carbonate 500 Mg Tablet PO 500 mg BIDCM HILARY Administration Clopidogrel Bisulfate 75 mg 04/09/24 10:00 04/10/24 09:33 Clopidogrel Bisulfate 75 Mg Tablet PO 75 mg DAILY HIL[facility] Administration Ceftriaxone Sodium 1 gm in 50 mls @ 100 mls/hr 04/09/24 10:00 04/10/24 10:45 Rocephin IV 04/12/24 10:29 Infused Q24 HILARY Infusion Sodium Chloride 100 mls @ 15 mls/hr 04/09/24 10:09 04/10/24 12:46 IV 0 mls/hr .Q6H40M PRN Infusion Saline Flush Sodium Chloride 100 mls @ 15 mls/hr 04/09/24 10:09 IV .Q6H40M PRN Additional IVPB Infusion Isosorbide Mononitrate 60 mg 04/09/24 10:00 04/10/24 09:33 Isosorbide Mononitrate 60 Mg Tablet PO 60 mg DAILY [facility] Administration Protocol Levothyroxine Sodium 50 mcg 04/09/24 06:00 04/10/24 05:31 Levothyroxine 50 Mcg Tablet PO 50 mcg DAILY@0600 HILARY Administration Losartan Potassium 25 mg 04/09/24 10:00 04/10/24 09:32 Losartan Potassium 25 Mg Tablet PO 25 mg DAILY [facility] Administration Protocol Magnesium Citrate 300 ml 04/08/24 13:06 Magnesium Citrate 300 Ml PO X1 PRN Constipation Metoprolol Succinate 25 mg 04/09/24 10:00 04/10/24 09:34 Metoprolol(Xl)Succ 25 Mg Tablet PO 25 mg DAILY [facility] Administration Protocol Nitroglycerin 0.4 mg 04/08/24 12:57 Nitroglycerin (Inpatient Use) 0.4 Mg Tab.Subl SL UD PRN Cardiac/Chest Pain Nutritional Formula (Lactose Free) 120 ml 04/08/24 17:00 04/10/24 11:39 Ensure Plus High Protein 120 Ml Liquid PO 120 ml 4X/DAY [facility] Administration Potassium Chloride 20 meq 04/08/24 22:00 04/10/24 09:33 Potassium Chloride Oral Tablet 20 Meq PO 20 meq BID HILARY Administration Senna/Docusate Sodium 1 tablet 04/08/24 22:00 04/10/24 09:34 Senna/Docusate Sodium 1 Tablet PO Not Given BID [facility] Sodium Chloride 10 - 40 ml 04/08/24 15:09 04/10/24 09:42 0.9% Saline Lock 10 Ml Syringe IV 10 ml UD PRN Administration SALINE FLUSH Tuberculin PPD 0.1 ml 04/16/24 10:00 Tuberculin,Purif.Prot.Deriv. 50 Tu/Ml Vial ID 04/16/24 10:01 X1 ONE Problem List (Updated 04/08/24 @ 20:[address] Enrike Dobbins MD) Appetite loss (Acute) Hypothyroidism (Acute) Atrial fibrillation (Acute) Coronary artery disease (Acute) Urinary tract infection (Acute) Unresponsive episode (Acute) Rhabdomyolysis (Acute) Debility (Acute) Essential hypertension (Chronic) Ventricular tachycardia (Chronic) Hyperlipidemia (Chronic) Vital Signs Temp Pulse Resp BP Pulse Ox O2 Del Method 98.1 F 59 L 16 159/76 H 97 Room Air 04/09/24 16:00 04/10/24 09:43 04/10/24 09:43 04/10/24 09:43 04/10/24 09:43 04/10/24 09:43 Oxygen Delivery Method Room Air Weight: 47.287 kg Body Mass Index (BMI) 19.7 Sodium 139 mmol/L (136-145) 04/09/24 05:04 Potassium 4.4 mmol/L (3.5-5.1) 04/09/24 05:04 Chloride 107 mmol/L (98-107) 04/09/24 05:04 Carbon Dioxide 24.0 mmol/L (21.0-32.0) 04/09/24 05:04 Anion Gap 8 (5-15) 04/09/24 05:04 BUN 32 mg/dL (7-18) H 04/09/24 05:04 Creatinine 0.81 mg/dL (0.55-1.02) 04/09/24 05:04 Est GFR (MDRD) Af Amer 87 mL/min (>60) 04/09/24 05:04 Est GFR (MDRD) Non-Af 72 mL/min (>60) 04/09/24 05:04 BUN/Creatinine Ratio 39.6 RATIO (10-20) H 04/09/24 05:04 Glucose 90 mg/dL (74-106) 04/09/24 05:04 Assessment/Plan: 1. Pain: Tylenol 1000mg PO Q6h PRN Pain 1-10. Please continue to monitor for S/S increased/decreased pain, PRN medication usage, LFTs with prolonged use. - The patient has gotten one dose of Tylenol since admission for foot pain rated 3/10, with pain rated 0/10 upon reassessment. Pain appears managed at this time. 2. UTI: Ceftriaxone 1g IV Q24hr thru 04/12/24. Please continue to monitor for resolution of infection, s/s allergic reactions, diarrhea. - Urine culture from 04/08/24 grew P. Mirabilis sensitive to ceftriaxone. Antibiotic therapy is appropriate at this time based on culture data. 3. Atrial Fibrillation: Amiodarone 200mg PO BID, Eliquis 5mg PO BID, Toprol XL 25mg PO daily. Please continue to monitor BP (range 100-159/58-76), pulse (range 55-59), S/S bleeding/bruising, H/H (Hgb 12.8, Hct 39.6 on 04/09). Note: Patient with history of DVT per hospitalization notes, and does not qualify for Eliquis dose reduction. 4. CAD: Toprol XL 25mg PO daily, Lipitor 40mg PO QHS, Plavix 75mg PO Daily, Isosorbide mononitrate 60mg PO Daily, Losartan 25mg PO Daily, Nitrostat PRN. Please continue to monitor BP (range 100-159/58-76), pulse (range 55-59), S/S bleeding/bruising, H/H (Hgb 12.8, Hct 39.6 on 04/09), potassium (last 4.4 on 04/09), dizziness, swelling. 5. Hypothyroidism: Synthroid 50mcg PO Daily. Please continue to monitor for S/S hypothyroidism, TSH (7.2 on 04/04/24). Patient's TSH is elevated, consider increasing Synthroid dose as clinically indicated (note: TSH elevated during hospitalization, dose not increased at that time). 6. Hypokalemia: K-Dur 20mEq PO BID. Please continue to monitor potassium levels (K = 4.4 on 04/09), nausea, and stomach upset. 7. GERD: Calcium carbonate 500mg PO BIDCM. Please continue to monitor for medication effectiveness, reduction of GERD flare-ups. 8. Skin Integrity: Calmoseptine topically BID. Please continue to monitor for skin irritation/ redness and skin inegrity. 9. Bowel: Senna/Docusate 1 tab PO BID, Magnesium Citrate 300mL PO x1 PRN. Please continue to monitor for increased/decreased constipation and/or diarrhea. - The patient's last documented bowel movement was today, 04/10/24. Assessment/Plan for indications treated with psychotropic medications: -The patient is not on any psychotropic medications at the time of medication list review. Medical chart and medication regimen reviewed. The following medication irregularities or issues were identified: 1. Hypothyroidism: TSH was elevated (7.2 on 04/04/24) and dose was not increased at time of hospitalization. Please consider increasing Synthroid dose as clinically indicated, thank you. Date Date of Note: 04/10/24
[2024-04-10 15:00] VITALS: PULSE 59; RESP 16; O2SAT 97
[2024-04-10 16:00] VITALS: TEMP 36.7
--- NOTE | 2024-04-10 18:50 | NURSING ---
PT HAD NOT VOIDED FOR A WHILE OR ASK/STATE SHE NEEDED TO VOID. ASKED PT TO GET UP TO BED SIDE COMMODE. PT VOIDED MODERATE AMOUNT AND HAD A BM. BLADDER SCANNED FOR 119. HAVE PT GET UP TO BED SIDE COMMODE. PT DOES NOT DRINK MUCH THREW DAY OFFER AND IN COURAGE FLUIDS.
[2024-04-10] MEDS: Senna/Docusate Sodium 1 Tablet PO (20:00)
[2024-04-10] MEDS: Atorvastatin Calcium 40 MG Tablet PO (20:00)
[2024-04-10 20:25] VITALS: BP 154/77; PULSE 58
[2024-04-11] MEDS: Levothyroxine 50 MCG Tablet PO (06:02)
[2024-04-11] MEDS: Ensure Plus High Protein 120 ML LIQUID PO ×4 (06:02→22:12)
[2024-04-11] MEDS: Acetaminophen 500 MG Tablet 1000 MG PO (06:59)
[2024-04-11 07:46] LABS: Anion Gap 7 (5-15); BUN 19 mg/dL (7-18); BUN/Creat Ratio 29.9 RATIO (10-20); Calcium,Total 8.3 mg/dL (8.5-10.1); Chloride 106 mmol/L (98-107); Creatinine, Serum 0.64 mg/dL (0.55-1.02); EST Glomerular Filtration Rate 95 mL/min (>60); Est Glom Filt Rate - Afr Amer 114 mL/min (>60); Estimated Creatinine Clearance 39.08 ml/min; Glucose 88 mg/dL (74-106); Potassium 3.9 mmol/L (3.5-5.1); Sodium Level 135 mmol/L (136-145)
[2024-04-11 08:06] VITALS: BP 143/75; PULSE 59
[2024-04-11] MEDS: Isosorbide Mononitrate 60 MG Tablet PO (08:06)
[2024-04-11] MEDS: Metoprolol(XL)Succ 25 MG Tablet PO (08:06)
[2024-04-11] MEDS: Potassium Chloride Oral Tablet 20 MEQ PO ×2 (08:06→22:14)
[2024-04-11] MEDS: Calcium Carbonate 500 MG Tablet PO ×2 (08:06→17:14)
[2024-04-11] MEDS: Clopidogrel Bisulfate 75 MG Tablet PO (08:06)
[2024-04-11] MEDS: Losartan Potassium 25 MG Tablet PO (08:06)
[2024-04-11] MEDS: APIXABAN 5 MG TABLET PO ×2 (08:06→22:13)
[2024-04-11] MEDS: Amiodarone 200 MG Tablet PO ×2 (08:06→22:13)
[2024-04-11] MEDS: Senna/Docusate Sodium 1 Tablet PO ×2 (08:06→22:14)
[2024-04-11] MEDS: Menthol/Lanolin/Calamine/Znox 113 GM Tube 1 APPLIC TOPICAL ×2 (08:07→22:12)
[2024-04-11] MEDS: Ceftriaxone 1 GM/50 mL Premix Q24 IV (08:18)
[2024-04-11] MEDS: 0.9% Saline Lock 10 ML Syringe IV ×2 (08:18→22:15)
[2024-04-11] MEDS: 0.9% Normal Saline (100mL Bag) 100 ML 15 ML IV (08:19)
[2024-04-11 09:14] VITALS: BP 143/75; PULSE 59; RESP 18; TEMP 36.4; O2SAT 96
--- NOTE | 2024-04-11 13:49 | NURSING ---
Dressing to top of right foot changed per orders. Old bandages removed. No drainage, redness, or warmth noted. ABD and Kerlix applied per orders. Dressing to left lateral and medial ankle changed per orders. Small amount of Serosanguineous drainage?noted to old bandage. Areas washed and applied. Areas covered with adaptic, cover with ABD, and wrapped with Kerlix. Denies pain/discomfort. No concerns noted or voiced.
--- NOTE | 2024-04-11 14:35 | WOUNDNOTE ---
wound photo: right upper back
--- NOTE | 2024-04-11 14:35 | WOUNDNOTE ---
wound photo: mid back
--- NOTE | 2024-04-11 14:36 | WOUNDNOTE ---
wound photo: right hip
--- NOTE | 2024-04-11 14:37 | WOUNDNOTE ---
wound photo: sacrum
--- NOTE | 2024-04-11 14:47 | NURSING ---
Wound nurse in and completed all wound treatments this shift.
--- NOTE | 2024-04-11 14:47 | CHAPLAIN ---
Type of Pastoral Visit _x__ Initial Visit ___ Follow-up Visit ___ On-call Visit ___ General Patient Visit ___ Spiritual Assessment ___ Family Conference ___ Bereavement ___ Rapid Response ___ Code Blue ___ Other (describe below) Pastoral Care Referral From _x__ Patient ___ Family ___ Nurse ___ Physician ___ Rn Clinical ___ Foundry Supervisor ___ Other (describe below) Sacrament/Intervention _x__ Active listening ___ Anointing ___ Pentecostal ___ Bereavement ___ Communion ___ Bessy exploration ___ _x__ Life review _x__ Prayer ___ Reconciliation ___ Sacrament of Sick _x__ Supportive presence ___ Wedding ___ Other (describe below) Pastoral Comments patient was seen recently in ICU and is now in TCU; pt states that she remembers the previous visit; pt is focused on what happened to her at home and 'having a hard time believing or understanding the situation of being in the bathtub for days'; pt admits that something will have to improve for her safety; pt has a nephew that cares for her; pt is talkative and focused; pt welcomes a prayer; pt says 'keep saying a thousand prayers';
--- NOTE | 2024-04-11 15:02 | NURSING ---
Staff heard patient yelling out Hey! multiple times. Staff went into room and patient in bed and stated, I don't want to be alone. Get me out of here and somewhere everyone else is at. Staff assisted patient into wheelchair and brought to common area per her request. Patient confused per baseline and verbally agitated at this time. Independent actives offered and declined. Patient currently watching TV in common area.
[2024-04-11 16:50] VITALS: PULSE 59; RESP 18; O2SAT 96
--- NOTE | 2024-04-11 19:56 | NURSING ---
Patient with increased restlessness today, redirection with short term effects, Dr. Dobbins paged, New orders: CBC, BMP, UA C&S via straight cath, orders verified via read back and acknowledged.
--- NOTE | 2024-04-11 20:21 | NURSING ---
Urine specimen collected via straight cath at this time, patient tolerated well.
[2024-04-11 20:28] LABS: Bacteria 0 SEEN /hpf (None Seen); Mucous, Urine 0 SEEN /hpf (<or=2+)
[2024-04-11 20:34] LABS: Glucose, Dipstick Normal (Normal); Ketone-Dipstick Negative (Negative); Leukocyte Esterase-Dipstick 25 /ul (Negative); Nitrite-Dipstick Negative (Negative); Occult Blood-Urine 10 /ul (Negative); Protein-Dipstick 30 mg/dl (Negative); Urine Bilirubin Dipstick Negative (Negative); Urine Urobilinogen Normal (Normal)
[2024-04-11 20:54] LABS: Color, Urine Yellow (Yellow); Urine Clarity Clear (Clear)
[2024-04-11 20:55] LABS: Red Blood Cells-Urine 0-5 SEEN /hpf (0-5); Squamous Epithelial Cells - UA 0-5 SEEN /hpf (5-10); White Blood Cells 0-5 SEEN /hpf (0-5)
--- NOTE | 2024-04-11 21:02 | NURSING ---
Lab on floor to draw labs.
[2024-04-11 21:12] LABS: Absolute Lymphocyte Count 0.89 X10^3/uL (0.83-4.51); Basophil# 0.08 X10^3/uL; Basophil% 0.7 % (0-1); Eosinophil# 0.09 X10^3/uL; Eosinophils% 0.7 % (0-5); Hematocrit 39.5 % (37-47); Hemoglobin 12.7 g/dL (12.0-15.0); Lymphocyte # 0.89 X10^3/ul (0.83-4.51); Lymphocyte % 7.2 % (19-41); Mean Corp Hgb Conc 32.2 g/dL (32-36); Mean Corpuscular Hgb 26.3 pg (27.0-32.0); Mean Platelet Vol. 10.3 fl (6.2-12.0); Monocyte# 1.06 X10^3/uL; Monocyte% 8.6 % (0-10); NRBC Flagged by Analyzer 0 % (0-5); Neutrophil # 10.04 X10^3/uL (2.7-7.7); Neutrophil % 81.7 % (47-70); Platelet Count 322 K/mm3 (150-450); RBC Distribution Width CV 18.5 % (11.6-14.6); RBC Distribution Width SD 54.8 fl (35.1-43.9); Red Blood Count 4.82 M/mm3 (4.2-5.4); White Blood Count 12.3 K/mm3 (4.4-11.0)
--- NOTE | 2024-04-11 21:18 | NURSING ---
Dr. Dobbins updated at time on urinalysis results via phone call, response: Thank you, I will wait for urine culture results.
[2024-04-11 21:27] LABS: Anion Gap 5 (5-15); BUN 26 mg/dL (7-18); BUN/Creat Ratio 33.6 RATIO (10-20); Calcium,Total 8.8 mg/dL (8.5-10.1); Chloride 105 mmol/L (98-107); Creatinine, Serum 0.77 mg/dL (0.55-1.02); EST Glomerular Filtration Rate 75 mL/min (>60); Est Glom Filt Rate - Afr Amer 91 mL/min (>60); Estimated Creatinine Clearance 39.08 ml/min; Glucose 97 mg/dL (74-106); Potassium 4.5 mmol/L (3.5-5.1); Sodium Level 137 mmol/L (136-145)
[2024-04-11] MEDS: Atorvastatin Calcium 40 MG Tablet PO (22:14)
[2024-04-12] MEDS: Acetaminophen 500 MG Tablet 1000 MG PO (00:09)
[2024-04-12] MEDS: Ensure Plus High Protein 120 ML LIQUID PO ×4 (06:47→22:33)
[2024-04-12] MEDS: Levothyroxine 50 MCG Tablet PO (06:48)
[2024-04-12 08:41] VITALS: BP 127/65; PULSE 62; RESP 16; TEMP 36.9; O2SAT 98
--- NOTE | 2024-04-12 09:15 | RAD_ITS ---
PROCEDURE: CHEST PA AND LATERAL REASON FOR EXAM: 83-year-old female, mental status change. TECHNIQUE: Frontal and lateral views of the chest. COMPARISON: Chest radiographs 04/03/2024. FINDINGS: A left-sided ICD is present. Surgical clips along the right lower neck. Heart size is mildly enlarged. The mediastinal contour is unremarkable. Mild emphysema. Trace left pleural effusion. No focal consolidation or pneumothorax. Degenerative changes are identified within the thoracic spine. RAD/Chest PA and Lateral IMPRESSION: 1. Findings of mild CHF/volume overload including mild cardiomegaly and trace l eft pleural effusion. 2. Mild emphysema. Reading Location: [id number]
[2024-04-12] MEDS: Ceftriaxone 1 GM/50 mL Premix Q24 IV (09:22)
[2024-04-12] MEDS: Amiodarone 200 MG Tablet PO ×2 (09:25→22:34)
[2024-04-12] MEDS: Clopidogrel Bisulfate 75 MG Tablet PO (09:25)
[2024-04-12] MEDS: Isosorbide Mononitrate 60 MG Tablet PO (09:25)
[2024-04-12] MEDS: Potassium Chloride Oral Tablet 20 MEQ PO ×2 (09:25→22:35)
[2024-04-12] MEDS: Losartan Potassium 25 MG Tablet PO (09:25)
[2024-04-12] MEDS: Senna/Docusate Sodium 1 Tablet PO ×2 (09:25→22:35)
[2024-04-12 09:26] VITALS: PULSE 62
[2024-04-12] MEDS: Metoprolol(XL)Succ 25 MG Tablet PO (09:26)
[2024-04-12] MEDS: APIXABAN 5 MG TABLET PO ×2 (09:26→22:35)
[2024-04-12] MEDS: Calcium Carbonate 500 MG Tablet PO ×2 (09:26→18:15)
[2024-04-12] MEDS: Menthol/Lanolin/Calamine/Znox 113 GM Tube 1 APPLIC TOPICAL ×2 (09:29→22:35)
[2024-04-12 16:00] VITALS: RESP 18
[2024-04-12] MEDS: Furosemide 40 MG Tablet PO (16:18)
--- NOTE | 2024-04-12 18:45 | NURSING ---
Dr Dobbins entered following new orders today: CXR (see chart for results), Lasix 40mg x1 dose, Covid (results - negative), Respiratory panel [received call from lab ~1800, was notified that resp panel swab needs redone. Called and notified RT], limit Na intake. Awaiting urine culture results. Pt sleepy today, rouses easily to verbal stimuli. Pleasant mood, no behaviors noted.
[2024-04-12 22:32] VITALS: BP 118/61; PULSE 66
[2024-04-12] MEDS: LORazepam 0.5 MG Tablet PO (22:34)
[2024-04-12] MEDS: Atorvastatin Calcium 40 MG Tablet PO (22:35)
[2024-04-12] MEDS: 0.9% Saline Lock 10 ML Syringe IV (22:40)
[2024-04-13] MEDS: Ensure Plus High Protein 120 ML LIQUID PO ×4 (05:36→20:47)
[2024-04-13] MEDS: Levothyroxine 50 MCG Tablet PO (05:36)
[2024-04-13] MEDS: Menthol/Lanolin/Calamine/Znox 113 GM Tube 1 APPLIC TOPICAL ×2 (09:17→20:50)
[2024-04-13] MEDS: Calcium Carbonate 500 MG Tablet PO ×2 (09:17→17:38)
[2024-04-13] MEDS: Losartan Potassium 25 MG Tablet PO (09:18)
[2024-04-13] MEDS: Amiodarone 200 MG Tablet PO ×2 (09:18→20:44)
[2024-04-13] MEDS: APIXABAN 5 MG TABLET PO ×2 (09:18→20:44)
[2024-04-13] MEDS: Isosorbide Mononitrate 60 MG Tablet PO (09:19)
[2024-04-13 09:20] VITALS: BP 141/72; PULSE 60
[2024-04-13] MEDS: Metoprolol(XL)Succ 25 MG Tablet PO (09:20)
[2024-04-13] MEDS: Potassium Chloride Oral Tablet 20 MEQ PO ×2 (09:20→20:44)
[2024-04-13] MEDS: Senna/Docusate Sodium 1 Tablet PO ×2 (09:20→20:45)
[2024-04-13] MEDS: Clopidogrel Bisulfate 75 MG Tablet PO (09:20)
[2024-04-13 16:00] VITALS: BP 141/72; PULSE 59; RESP 18; TEMP 37.3; O2SAT 97
[2024-04-13] MEDS: Acetaminophen 500 MG Tablet 1000 MG PO (17:38)
[2024-04-13] MEDS: Atorvastatin Calcium 40 MG Tablet PO (20:45)
[2024-04-13] MEDS: LORazepam 0.5 MG Tablet PO (20:47)
[2024-04-14] MEDS: LORazepam 0.5 MG Tablet PO ×2 (01:45→15:51)
[2024-04-14] MEDS: Levothyroxine 50 MCG Tablet PO (06:33)
[2024-04-14] MEDS: Ensure Plus High Protein 120 ML LIQUID PO ×5 (06:33→20:42)
[2024-04-14] MEDS: Calcium Carbonate 500 MG Tablet PO ×2 (08:22→17:56)
[2024-04-14] MEDS: Potassium Chloride Oral Tablet 20 MEQ PO ×2 (08:23→20:43)
[2024-04-14] MEDS: APIXABAN 5 MG TABLET PO ×2 (08:23→20:43)
[2024-04-14] MEDS: Amiodarone 200 MG Tablet PO ×2 (08:23→20:42)
[2024-04-14] MEDS: Isosorbide Mononitrate 60 MG Tablet PO (08:23)
[2024-04-14] MEDS: Losartan Potassium 25 MG Tablet PO (08:23)
[2024-04-14 08:24] VITALS: BP 153/78; PULSE 60
[2024-04-14] MEDS: Clopidogrel Bisulfate 75 MG Tablet PO (08:24)
[2024-04-14] MEDS: Metoprolol(XL)Succ 25 MG Tablet PO (08:24)
[2024-04-14] MEDS: Senna/Docusate Sodium 1 Tablet PO ×2 (08:24→20:43)
[2024-04-14] MEDS: Menthol/Lanolin/Calamine/Znox 113 GM Tube 1 APPLIC TOPICAL ×2 (08:29→20:41)
[2024-04-14] MEDS: 0.9% Saline Lock 10 ML Syringe IV ×2 (12:08→20:38)
[2024-04-14 16:50] VITALS: BP 128/70; PULSE 80; RESP 16; TEMP 36.6
[2024-04-14 16:55] VITALS: BP 124/74
--- NOTE | 2024-04-14 17:00 | NURSING ---
Family in this evening and they report patient has been getting agitated and requested anxiety medicine at 1550. As soon as family left, patient's chair alarm went off and family turned back into room and witnessed patient fall back against bed and slid to floor. Nurse Gabriel enters room soon after along with nurse Beatriz and they assess patient and patient denies pain and VS 128/70 97.9 80 16 94%. Patient states she was just trying to get back into bed. Assisted back to bed and patient denies pain. Family and nurse Nery states patient did not hit head. Dr. Dobbins made aware and NNO.
[2024-04-14 20:00] VITALS: PULSE 70; O2SAT 95
[2024-04-14 20:07] LABS: Bedside Glucose 119 mg/dL (74-106)
[2024-04-14] MEDS: Acetaminophen 500 MG Tablet 1000 MG PO (20:40)
[2024-04-14] MEDS: Atorvastatin Calcium 40 MG Tablet PO (20:43)
[2024-04-14 21:02] VITALS: BP 172/80
[2024-04-15] VITALS (7 sets, daily range): BP systolic 150–170; BP diastolic 70–94; PULSE 57–62; RESP 16–18; TEMP 36.1–36.5; O2SAT 97–98; BMI 18.9
[2024-04-15] MEDS: Levothyroxine 75 MCG Tablet PO (06:28)
[2024-04-15] MEDS: Amiodarone 200 MG Tablet PO ×2 (08:39→20:36)
[2024-04-15] MEDS: Calcium Carbonate 500 MG Tablet PO ×2 (08:39→16:59)
[2024-04-15] MEDS: Menthol/Lanolin/Calamine/Znox 113 GM Tube 1 APPLIC TOPICAL ×2 (08:39→20:38)
[2024-04-15] MEDS: APIXABAN 5 MG TABLET PO ×2 (08:40→20:36)
[2024-04-15] MEDS: Isosorbide Mononitrate 60 MG Tablet PO (08:40)
[2024-04-15] MEDS: Potassium Chloride Oral Tablet 20 MEQ PO ×2 (08:41→20:37)
[2024-04-15] MEDS: Clopidogrel Bisulfate 75 MG Tablet PO (08:41)
[2024-04-15] MEDS: Metoprolol(XL)Succ 25 MG Tablet PO (08:41)
[2024-04-15] MEDS: Senna/Docusate Sodium 1 Tablet PO ×2 (08:41→20:37)
[2024-04-15] MEDS: Losartan Potassium 50 MG Tablet PO (08:44)
[2024-04-15] MEDS: Acetaminophen 500 MG Tablet 1000 MG PO ×2 (08:46→22:38)
--- NOTE | 2024-04-15 10:11 | WOUNDNOTE ---
wound photo: right upper back
--- NOTE | 2024-04-15 10:12 | WOUNDNOTE ---
wound photo: mid back
--- NOTE | 2024-04-15 10:12 | WOUNDNOTE ---
wound photo: right hip
--- NOTE | 2024-04-15 10:15 | WOUNDNOTE ---
wound photo: left lateral heel
--- NOTE | 2024-04-15 10:17 | WOUNDNOTE ---
wound photo: left hand
[2024-04-15] MEDS: Ensure Plus High Protein 120 ML LIQUID PO ×2 (12:01→16:59)
--- NOTE | 2024-04-15 15:12 | CASEMGMT ---
Social Work SW sent referrals via [facility]Port to [facility], [facility] and [facility]. Will await outcomes. Claudine Garcia MSW DATABASE MANAGEMENT SPECIALIST
--- NOTE | 2024-04-15 16:53 | CASEMGMT ---
Social Work SW completed BIMS (12/10) and PHQ-2 () for MDS assessment. Claudine Garcia PHOTOLETTERING MACHINE OPERATOR GENERATOR REPAIRER
[2024-04-15] MEDS: LORazepam 0.5 MG Tablet PO (19:45)
[2024-04-15] MEDS: Atorvastatin Calcium 40 MG Tablet PO (20:37)
[2024-04-15] MEDS: 0.9% Saline Lock 10 ML Syringe IV (20:38)
--- NOTE | 2024-04-15 22:08 | NURSING ---
Addendum entered by Marlen Rosales 04/16/24 06:57: This nurse spoke with patient's niece, Liliam Garcia, with patient updates. Liliam told this nurse she will be in with her brother later this afternoon for a care plan meeting. Liliam denied having any questions or concerns at this time, she verbalized understanding to call at any time if questions/concerns arise regarding the patient. Original Note: ROUTE RIDER SUPERVISOR reports patient on floor in bathroom with second ROUTE RIDER SUPERVISOR at side. Patient immediately assessed with second RN present. ROUTE RIDER SUPERVISOR states fall was witnessed and patient did not strike head, patient was on toilet and impulsively attempted to get up from toilet without assist, ROUTE RIDER SUPERVISOR states attempted to assist patient, unsteady gait, patient lost balance, knees buckled, patient unable to remain in standing position, lowered to floor with ROUTE RIDER SUPERVISOR assist. Upon entering room patient observed sitting on bathroom floor in front of toilet with ROUTE RIDER SUPERVISOR at side. Patient c/o right hip pain, active ROM to BUE and BLE, no inward/outward rotation observed to any extremity, no shortening observed to BLE or BUE. Gripper socks in place to BLE. Assisted to wheelchair x2 staff assist. Patient is impulsive. Confused per usual. Confidential text sent via backline to Dr. Dobbins notifying of ROUTE RIDER SUPERVISOR witnessed fall, no head strike, c/o right hip pain, Eliquis and plavix as ordered. New order received from Dr. Dobbins for xray to right hip. See Vital signs.
--- NOTE | 2024-04-15 22:28 | RAD_ITS ---
PROCEDURE: HIP, UNI W/ PELVIS 2-3 VIEWS REASON FOR EXAM: Pain. Fall. TECHNIQUE: Two views of the right hip and single frontal view of the pelvis are obtained. COMPARISON: None. FINDINGS: No acute fracture or dislocation is present. Mild degenerative changes are identified. No osseous erosive changes or periosteal reaction is present. Visualized soft tissues are unremarkable. There are mild degenerative changes of the bilateral sacroiliac joints. There are degenerative changes of the visualized lumbar spine. RAD/HIP, UNI W/ Pelvis 2-3 Views IMPRESSION: No acute osseous abnormality. Reading Location: [facility]
[2024-04-15 22:59] LABS: Bedside Glucose 101 mg/dL (74-106)
[2024-04-15 23:21] LABS: Bedside Glucose 98 mg/dL (74-106)
[2024-04-16 04:27] VITALS: RESP 16
[2024-04-16] MEDS: Levothyroxine 75 MCG Tablet PO (05:00)
[2024-04-16] MEDS: Ensure Plus High Protein 120 ML LIQUID PO ×3 (05:01→17:57)
[2024-04-16 06:00] LABS: Absolute Lymphocyte Count 1.56 X10^3/uL (0.83-4.51); Absolute Neutrophil Count 5.8 X10^3/uL (2.0-7.7); Basophil# 0.07 X10^3/uL; Basophil% 0.8 % (0-1); Eosinophil# 0.31 X10^3/uL; Eosinophils% 3.6 % (0-5); Hematocrit 36.8 % (37-47); Hemoglobin 11.7 g/dL (12.0-15.0); Lymphocyte # 1.56 X10^3/ul (0.83-4.51); Lymphocyte % 18.3 % (19-41); Mean Corp Hgb Conc 31.8 g/dL (32-36); Mean Corpuscular Hgb 26.1 pg (27.0-32.0); Mean Corpuscular Volume 82.1 fL (81-99); Mean Platelet Vol. 9.4 fl (6.2-12.0); Monocyte# 0.66 X10^3/uL; Monocyte% 7.7 % (0-10); NRBC Flagged by Analyzer 0 % (0-5); Neutrophil # 5.77 X10^3/uL (2.7-7.7); Neutrophil % 67.6 % (47-70); Platelet Count 506 K/mm3 (150-450); RBC Distribution Width SD 53.7 fl (35.1-43.9); Red Blood Count 4.48 M/mm3 (4.2-5.4); White Blood Count 8.5 K/mm3 (4.4-11.0)
[2024-04-16 06:28] LABS: Anion Gap 4 (5-15); BUN 21 mg/dL (7-18); BUN/Creat Ratio 27.1 RATIO (10-20); Calcium,Total 8.3 mg/dL (8.5-10.1); Chloride 107 mmol/L (98-107); Creatinine, Serum 0.78 mg/dL (0.55-1.02); EST Glomerular Filtration Rate 75 mL/min (>60); Est Glom Filt Rate - Afr Amer 91 mL/min (>60); Estimated Creatinine Clearance 37.63 ml/min; Glucose 88 mg/dL (74-106); Potassium 4.5 mmol/L (3.5-5.1); Sodium Level 139 mmol/L (136-145)
--- NOTE | 2024-04-16 06:39 | NURSING ---
Patient very confused this shift, orientation ranges between A/O x1-3, this is per patient baseline. Patient does not understand why she is here, cannot recall falling 04/15/24. Patient keeps asking why no one is coming to get her or talk to her, staff has rounded on patient every hour. Patient gets agitated when staff tries to explain the reason she is in the hospital and on TCU. Patient received one dose of PRN Ativan this shift for anxiety, was effective. Continue to cue patient and provide teachings and education.
[2024-04-16] MEDS: Calcium Carbonate 500 MG Tablet PO ×2 (07:44→18:03)
[2024-04-16] MEDS: Amiodarone 200 MG Tablet PO ×2 (07:44→20:43)
[2024-04-16] MEDS: Potassium Chloride Oral Tablet 20 MEQ PO ×2 (07:45→20:43)
[2024-04-16] MEDS: Isosorbide Mononitrate 60 MG Tablet PO (07:45)
[2024-04-16] MEDS: Losartan Potassium 50 MG Tablet PO (07:45)
[2024-04-16] MEDS: APIXABAN 5 MG TABLET PO ×2 (07:45→20:43)
[2024-04-16] MEDS: Senna/Docusate Sodium 1 Tablet PO ×2 (07:46→20:43)
[2024-04-16] MEDS: Clopidogrel Bisulfate 75 MG Tablet PO (07:46)
[2024-04-16 07:48] VITALS: BP 162/91; PULSE 60
[2024-04-16] MEDS: Metoprolol(XL)Succ 25 MG Tablet PO (07:48)
[2024-04-16] MEDS: Menthol/Lanolin/Calamine/Znox 113 GM Tube 1 APPLIC TOPICAL (07:55)
--- NOTE | 2024-04-16 08:27 | NURSING ---
Ornamental Brick Installer Note; MDS for 04/15/2024 Complete
[2024-04-16 09:00] VITALS: BP 162/91; PULSE 60; RESP 16; TEMP 36.8; O2SAT 98
[2024-04-16 10:00] VITALS: BP 154/71
--- NOTE | 2024-04-16 14:06 | CASEMGMT ---
Social Work IDT met with patient, nephew, and additional family members for care plan meeting. Discussed patient's progress in PT/OT/ST/SN. Educated to Medicare benefit. Provided family with written communication on insurance process and copay coverage during stay. Discussed IDt's recommendation for LTP d/t safety and cognition. Family in agreement and stated she would benefit from increased socialization in a facility. SW updated that [facility] does not have any beds but [facility] can accept. Offered to refer to other SNFs and offered list of other options. Family accepts and prefers pt remain in [facility]. SW provided list of SNFs that include quality and resource data via CarePort Guide. Educated to Medicare/gov/nursinghomecompare. SW explained once there is an accepting facility, within the next two weeks, a DC date can be set to transition the pt. Family agreeable. SW will continue to follow. Claudine Garcia HAND CULTIVATOR CONTRACT LAW SPECIALIST
[2024-04-16] MEDS: Tuberculin,Purif.prot.deriv. 50 TU/ML Vial 0.1 ML ID (14:47)
[2024-04-16] MEDS: 0.9% Saline Lock 10 ML Syringe IV ×2 (17:58→20:45)
[2024-04-16] MEDS: LORazepam 0.5 MG Tablet PO (20:43)
[2024-04-16] MEDS: Atorvastatin Calcium 40 MG Tablet PO (20:43)
[2024-04-16 20:52] VITALS: BP 147/69; PULSE 63
[2024-04-17] MEDS: Menthol/Lanolin/Calamine/Znox 113 GM Tube 1 APPLIC TOPICAL ×3 (00:19→19:07)
[2024-04-17] MEDS: Ensure Plus High Protein 120 ML LIQUID PO ×4 (05:21→20:26)
[2024-04-17] MEDS: Levothyroxine 75 MCG Tablet PO (05:21)
[2024-04-17 09:17] VITALS: BP 132/56; RESP 15; TEMP 36.4
[2024-04-17 09:20] VITALS: PULSE 61
[2024-04-17] MEDS: Isosorbide Mononitrate 60 MG Tablet PO (09:20)
[2024-04-17] MEDS: APIXABAN 5 MG TABLET PO ×2 (09:20→20:21)
[2024-04-17] MEDS: Amiodarone 200 MG Tablet PO ×2 (09:20→20:21)
[2024-04-17] MEDS: Losartan Potassium 50 MG Tablet PO (09:20)
[2024-04-17] MEDS: Clopidogrel Bisulfate 75 MG Tablet PO (09:20)
[2024-04-17] MEDS: Potassium Chloride Oral Tablet 20 MEQ PO ×2 (09:20→20:21)
[2024-04-17] MEDS: Calcium Carbonate 500 MG Tablet PO ×2 (09:20→16:33)
[2024-04-17] MEDS: Senna/Docusate Sodium 1 Tablet PO ×2 (09:20→20:22)
[2024-04-17] MEDS: Metoprolol(XL)Succ 25 MG Tablet PO (09:20)
[2024-04-17] MEDS: LORazepam 0.5 MG Tablet PO (19:07)
[2024-04-17 20:00] VITALS: PULSE 60; RESP 16; O2SAT 97
[2024-04-17] MEDS: DAKIN'S SOL HALF STRENGTH (=0.25%) TOPICAL (20:14)
[2024-04-17] MEDS: 0.9% Saline Lock 10 ML Syringe IV (20:15)
[2024-04-17] MEDS: Atorvastatin Calcium 40 MG Tablet PO (20:22)
[2024-04-18] MEDS: Levothyroxine 75 MCG Tablet PO (05:57)
[2024-04-18] MEDS: Ensure Plus High Protein 120 ML LIQUID PO ×4 (05:57→20:07)
[2024-04-18 08:00] VITALS: BP 138/80; PULSE 58; RESP 18; TEMP 36.6; O2SAT 98
[2024-04-18] MEDS: Amiodarone 200 MG Tablet PO ×2 (08:23→20:02)
[2024-04-18] MEDS: Potassium Chloride Oral Tablet 20 MEQ PO ×2 (08:23→20:03)
[2024-04-18] MEDS: Clopidogrel Bisulfate 75 MG Tablet PO (08:23)
[2024-04-18] MEDS: APIXABAN 5 MG TABLET PO ×2 (08:23→20:02)
[2024-04-18] MEDS: Calcium Carbonate 500 MG Tablet PO ×2 (08:23→17:09)
[2024-04-18] MEDS: Isosorbide Mononitrate 60 MG Tablet PO (08:23)
[2024-04-18] MEDS: Losartan Potassium 50 MG Tablet PO (08:23)
[2024-04-18 08:24] VITALS: BP 138/80; PULSE 58
[2024-04-18] MEDS: Metoprolol(XL)Succ 25 MG Tablet PO (08:24)
[2024-04-18] MEDS: Menthol/Lanolin/Calamine/Znox 113 GM Tube 1 APPLIC TOPICAL ×2 (08:24→20:00)
[2024-04-18] MEDS: Senna/Docusate Sodium 1 Tablet PO ×2 (08:24→20:03)
--- NOTE | 2024-04-18 10:12 | CASEMGMT ---
Social Work SW phoned nephew to follow up on SNF choices. Family plans to tours next week and will notify this worker with preferences. EMIGDIO will continue to follow. Claudine Garcia MSW REGULATORY ADMINISTRATOR
[2024-04-18] MEDS: Acetaminophen 500 MG Tablet 1000 MG PO (11:48)
[2024-04-18] MEDS: DAKIN'S SOL HALF STRENGTH (=0.25%) TOPICAL ×2 (15:53→20:04)
[2024-04-18 16:00] VITALS: PULSE 58; RESP 18; O2SAT 98
[2024-04-18] MEDS: LORazepam 0.5 MG Tablet PO (20:00)
[2024-04-18] MEDS: Atorvastatin Calcium 40 MG Tablet PO (20:03)
[2024-04-19] MEDS: Ensure Plus High Protein 120 ML LIQUID PO ×3 (05:18→22:03)
[2024-04-19] MEDS: Levothyroxine 75 MCG Tablet PO (05:19)
[2024-04-19] MEDS: Amiodarone 200 MG Tablet PO ×2 (07:54→22:05)
[2024-04-19] MEDS: Calcium Carbonate 500 MG Tablet PO ×2 (07:54→16:51)
[2024-04-19] MEDS: DAKIN'S SOL HALF STRENGTH (=0.25%) TOPICAL ×2 (07:55→23:26)
[2024-04-19] MEDS: Isosorbide Mononitrate 60 MG Tablet PO (07:55)
[2024-04-19] MEDS: APIXABAN 5 MG TABLET PO ×2 (07:55→22:06)
[2024-04-19] MEDS: Losartan Potassium 50 MG Tablet PO (07:55)
[2024-04-19] MEDS: Potassium Chloride Oral Tablet 20 MEQ PO ×2 (07:55→22:06)
[2024-04-19 07:56] VITALS: BP 154/80; PULSE 57
[2024-04-19] MEDS: Metoprolol(XL)Succ 25 MG Tablet PO (07:56)
[2024-04-19] MEDS: Clopidogrel Bisulfate 75 MG Tablet PO (07:56)
[2024-04-19] MEDS: Senna/Docusate Sodium 1 Tablet PO ×2 (07:56→22:05)
[2024-04-19] MEDS: Menthol/Lanolin/Calamine/Znox 113 GM Tube 1 APPLIC TOPICAL ×2 (08:00→22:04)
[2024-04-19 16:00] VITALS: BP 153/70; PULSE 57; RESP 17; TEMP 36.4; O2SAT 93
[2024-04-19 22:00] VITALS: BP 160/77; PULSE 60; RESP 16
[2024-04-19] MEDS: LORazepam 0.5 MG Tablet PO (22:03)
[2024-04-19] MEDS: Atorvastatin Calcium 40 MG Tablet PO (22:05)
[2024-04-19 22:41] VITALS: PULSE 60; RESP 16
[2024-04-20] MEDS: Levothyroxine 75 MCG Tablet PO (05:39)
[2024-04-20] MEDS: Menthol/Lanolin/Calamine/Znox 113 GM Tube 1 APPLIC TOPICAL ×2 (09:30→20:32)
[2024-04-20] MEDS: APIXABAN 5 MG TABLET PO ×2 (09:31→20:31)
[2024-04-20] MEDS: Calcium Carbonate 500 MG Tablet PO ×2 (09:31→17:24)
[2024-04-20] MEDS: Amiodarone 200 MG Tablet PO ×2 (09:31→20:31)
[2024-04-20] MEDS: Losartan Potassium 50 MG Tablet PO (09:31)
[2024-04-20] MEDS: Senna/Docusate Sodium 1 Tablet PO ×2 (09:32→20:32)
[2024-04-20] MEDS: Isosorbide Mononitrate 60 MG Tablet PO (09:32)
[2024-04-20] MEDS: Potassium Chloride Oral Tablet 20 MEQ PO ×2 (09:32→20:32)
[2024-04-20] MEDS: Clopidogrel Bisulfate 75 MG Tablet PO (09:32)
[2024-04-20 09:33] VITALS: BP 119/58; PULSE 59
[2024-04-20] MEDS: Metoprolol(XL)Succ 25 MG Tablet PO (09:33)
[2024-04-20] MEDS: DAKIN'S SOL HALF STRENGTH (=0.25%) TOPICAL ×2 (09:42→20:30)
[2024-04-20 09:50] VITALS: BP 119/58; PULSE 59; RESP 16; O2SAT 98
[2024-04-20] MEDS: Ensure Plus High Protein 120 ML LIQUID PO ×3 (11:32→20:30)
[2024-04-20 15:00] VITALS: PULSE 55; RESP 16; O2SAT 97
[2024-04-20 16:00] VITALS: TEMP 37.3
[2024-04-20] MEDS: Acetaminophen 500 MG Tablet 1000 MG PO (17:25)
[2024-04-20] MEDS: LORazepam 0.5 MG Tablet PO (20:30)
[2024-04-20] MEDS: Atorvastatin Calcium 40 MG Tablet PO (20:31)
[2024-04-20 20:36] VITALS: BP 151/71; PULSE 57
[2024-04-21] MEDS: Levothyroxine 75 MCG Tablet PO (05:39)
[2024-04-21] MEDS: Losartan Potassium 50 MG Tablet PO (07:50)
[2024-04-21] MEDS: Calcium Carbonate 500 MG Tablet PO ×2 (07:50→17:35)
[2024-04-21] MEDS: Amiodarone 200 MG Tablet PO ×2 (07:50→21:21)
[2024-04-21] MEDS: Senna/Docusate Sodium 1 Tablet PO ×2 (07:52→21:23)
[2024-04-21] MEDS: Isosorbide Mononitrate 60 MG Tablet PO (07:53)
[2024-04-21] MEDS: Potassium Chloride Oral Tablet 20 MEQ PO ×2 (07:53→21:23)
[2024-04-21] MEDS: Clopidogrel Bisulfate 75 MG Tablet PO (07:53)
[2024-04-21] MEDS: APIXABAN 5 MG TABLET PO ×2 (07:53→21:21)
[2024-04-21 07:54] VITALS: BP 175/88; PULSE 61
[2024-04-21] MEDS: Metoprolol(XL)Succ 25 MG Tablet PO (07:54)
[2024-04-21] MEDS: DAKIN'S SOL HALF STRENGTH (=0.25%) TOPICAL ×2 (07:57→21:22)
[2024-04-21] MEDS: Menthol/Lanolin/Calamine/Znox 113 GM Tube 1 APPLIC TOPICAL ×2 (07:57→21:20)
[2024-04-21 10:00] VITALS: BP 175/88; PULSE 61; RESP 16; TEMP 37; O2SAT 97
[2024-04-21 12:00] VITALS: BP 154/68; PULSE 55
--- NOTE | 2024-04-21 12:19 | MDS.RN ---
Information for the MDS was obtained from review of the clinical record, interview of resident, staff, and direct observation of resident?s care.
[2024-04-21] MEDS: Acetaminophen 500 MG Tablet 1000 MG PO ×2 (14:52→21:24)
--- NOTE | 2024-04-21 15:09 | WOUNDNOTE ---
wound photo: mid back
--- NOTE | 2024-04-21 15:10 | WOUNDNOTE ---
wound photo: right hip
--- NOTE | 2024-04-21 15:11 | WOUNDNOTE ---
wound photo: left medial ankle
--- NOTE | 2024-04-21 15:12 | WOUNDNOTE ---
wound photo: left lateral ankle
--- NOTE | 2024-04-21 15:12 | WOUNDNOTE ---
wound photo: right lateral foot
--- NOTE | 2024-04-21 15:13 | WOUNDNOTE ---
wound photo: right foot
--- NOTE | 2024-04-21 15:26 | CASEMGMT ---
Social Work Nephew and niece requested to speak with this worker. - SW met with family outside of pt's room. Family toured [facility] and [facility]. Family highly prefers [facility], though unsure if [facility] has an apartment available, and is open to [place] location. SW to assist with referral and coordination of onsite, etc. SW answered questions for family. Discussed needs for pt, such as a hospital bed, FWW, walker, lift chair. SW to review with therapy their recommendations for FWW vs w/c. SW to place referral for hospital bed to see if pt will qualify. SW also offered to coordinate script for lift chair that will cover taxes, if pt chooses that route with [facility]. Family to notify this worker if that is needed. Family very appreciative of assistance. SW will continue to follow. - SW sent referral via [employer] and sent secure email to Ir[facility] at [facility] [place] and Barrera at [facility] to coordinate referral communication. SW requested onsite be scheduled with this worker prior and their team can assess for memory care or AL placement. - Nephew updated this worker that they are purchasing a lift chair from [facility] and requested script. EMIGDIO to complete. SW will continue to follow to finalize DC plans. Claudine Garcia INTERACTIVE MEDIA DIRECTOR FLOOR CASHIER
--- NOTE | 2024-04-21 17:33 | DS.PCM_ITS ---
Providers Date of Admission: 04/08/24 Primary Care Physician: Dr. Enrike Dobbins MD Consultations 04/08/24 15:15 Consult: Onc/Wound/lighting fixture installer Routine Comment: Reason for Consult:: skin tears, DTI 04/22/24 17:49 Consult: Plastic Surgery Routine Consulting Provider: Gm Freeman Reason for Consult: Stage 4 right hip pressure ulcer. EMERGENT Consult: No MD Notified: Yes Date Notified: 04/22/24 Time Notified: 17:49 Method of Notification: Text 04/29/24 09:40 Consult: Hospice / Palliative Care Routine Consulting Provider: [facility] Reason for Consult: HOSPICE - e/s Alzheimer's, trochanteric ulcer of right hip EMERGENT Consult: No MD Notified: Yes Date Notified: 04/29/24 Time Notified: 09:40 Method of Notification: Text Reason For Visit: RHABDO/UNRESPONSIVE EPISODES Diagnosis Discharge Diagnosis (1) Debility: Status: Acute Code(s): R53.81 - Other malaise (2) Unresponsive episode: Status: Resolved Code(s): R40.4 - Transient alteration of awareness (3) Ventricular tachycardia: Status: Resolved Code(s): I47.2 - Ventricular tachycardia (4) Rhabdomyolysis: Status: Resolved Code(s): M62.82 - Rhabdomyolysis (5) Urinary tract infection: Status: Acute Code(s): N39.0 - Urinary tract infection, site not specified (6) Essential hypertension: Status: Inactive Code(s): I10 - Essential (primary) hypertension (7) Hyperlipidemia: Status: Chronic Code(s): E78.5 - Hyperlipidemia, unspecified Qualifiers: Hyperlipidemia type: unspecified Qualified Code(s): E78.5 - Hyperlipidemia, unspecified (8) Coronary artery disease: Status: Acute Code(s): I25.10 - Atherosclerotic heart disease of [place] coronary artery without angina pectoris (9) Atrial fibrillation: Status: Acute Code(s): I48.91 - Unspecified atrial fibrillation Qualifiers: Atrial fibrillation type: paroxysmal Qualified Code(s): I48.0 - Paroxysmal atrial fibrillation (10) Hypothyroidism: Status: Acute Code(s): E03.9 - Hypothyroidism, unspecified (11) Appetite loss: Status: Acute Code(s): R63.0 - Anorexia Plan 83 year old female with below past medical history hospitalized for unresponsive episode 2/2 ventricular tachycardia, complicated by rhabdomyolysis, urinary tract infection, admitted to TCU with debility, here for rehabilitation, strengthening, prior to discharge home. * Debility - PT/OT. * Pain - Tylenol 1000mg q6 prn pain (1-10). * Bowel - senna/colace 1 tablet bid, Magnesium citrate 300mL po x 1 prn.. * Adult immunization - Administer pneumonia vaccine, covid vaccine, flu vaccine as appropriate. * DVT prophylaxis - on Eliquis. * Atrial fibrillation - Metoprolol succinate 25mg daily, Amiodarone 200mg bid, Eliquis 5mg bid. * Hyperlipidemia - Atorvastatin 40mg qhs. * Drug resistant P. Mirabilis UTI - Ceftriaxone 1gm iv q24 thru 04/12/2024. * Coronary artery disease - Metoprolol succinate 25mg daily, Losartan 25mg daily, Isosorbide mn 60mg daily, Plavix 75mg daily, NTG 0.4mg sl daily prn. * Nutrition - Ensure Plus 120mL 4x/day. * Hypothyroidism - Levothyroxine 50mcg daily. * Skin irritation - Calmoseptine topical bid. * Hypokalemia - KCL 20meq bid. Medications at Discharge Home Medications isosorbide mononitrate 30 mg tablet,extended release 24 hr 60 mg (2 x 30 mg) PO DAILY heart #180 tabs 04/25/23 atorvastatin 40 mg tablet 40 mg PO QHS cholesterol 30 days #30 tabs 06/27/23 apixaban 5 mg tablet (Eliquis) 5 mg PO BID blood thinner #60 tabs 01/03/24 clopidogrel 75 mg tablet 75 mg PO DAILY prevent clots #90 tabs 01/31/24 amiodarone 200 mg tablet 200 mg PO BID heart #0 tabs 04/08/24 acetaminophen 500 mg tablet 1,000 mg (2 x 500 mg) PO Q8 #0 tabs 05/07/24 calcium carbonate 500 mg (2.5 x 200 mg calcium (500 mg)) PO BIDCM #0 tabs 05/07/24 food supplemt, lactose-reduced 0.08 gram-1.5 kcal/mL oral liquid (Ensure Plus High Protein) 120 ml PO 4X/DAY #0 mL 05/07/24 levothyroxine 75 mcg tablet 75 mcg PO DAILY@0600 #0 tabs 05/07/24 lorazepam 0.5 mg tablet 0.5 mg PO Q4H PRN PRN Anxiety/Restlessness/Sleep 3 days #18 tabs 05/07/24 losartan 100 mg tablet 100 mg PO DAILY #0 tabs 05/07/24 menthol 0.44 %-zinc oxide 20.6 % topical ointment (Calmoseptine) 1 applic topical BID #0 grams 05/07/24 metoprolol succinate 25 mg tablet,extended release 24 hr 25 mg PO DAILY #0 tabs 05/07/24 potassium chloride 20 mEq tablet,extended release(part/cryst) 20 meq PO BID #0 tabs 05/07/24 sennosides 8.6 mg-docusate sodium 50 mg tablet (Stimulant Laxative Plus) 1 tab PO BID #0 tabs 05/07/24 Hospital Course Operations None Procedures None Summary of Care Provided Minutes Spent on Discharge: 35 Hospital Course: 83 year old female with below past medical history hospitalized for unresponsive episode 2/2 ventricular tachycardia, complicated by rhabdomyolysis, urinary tract infection, admitted to TCU with debility, here for rehabilitation, strengthening, prior to discharge home. Resident has stage 4 pressure ulcer right hip, clean. Discharge 05/14/2024 to [facility] in [facility]. Hospital Bed: Patient requires a hospital bed d/t needing frequent changes in position to alleviate pain, prevent ongoing pressure areas, assist in healing of current pressure areas, prevent aspiration or d/t respiratory condition. DX: Coronary artery disease, debility, Alzheimer Disease, right hip wound, bilateral lower extremity wound, bilateral heel wounds. Lift Chair: The transfer between bed and a chair or commode requires assistance of more than one person and without use of a lift, the patient would be bed- confined. Physical Exam Const alert Constitutional Narrative: Drowsy, but arousable. General Appearance: cooperative HEENT normocephalic Eyes PERRL and EOMs intact bilaterally Neck supple, no JVD and no carotid bruits Resp normal respiratory effort, normal air movement and clear to auscultation bilaterally Cardio regular rate and regular rhythm GI normal to inspection, nondistended, normoactive bowel sounds, non-tender and non-distended Extremity normal capillary refill General Extremity: Negative for edema Skin Skin Narrative: per wound nurse. Wound Narrative: I reviewed right hip pressure ulcer photo. The base appears beefy red, clean. No sign of infection. Psych affect normal Appearance: appropriate Medical Records Data Medical Nutrition Assessment Dietitian: Malnutrition Criteria Met Start: 04/09/24 12:04 Freq: Status: Active Protocol: Document 05/07/24 10:08 [facility] (Rec: 05/07/24 10:08 [facility] [id number]) Nutrition Malnutrition Evidence of Yes Malnutrition Exists Evidenced By Suboptimal Energy Intake (Moderate),Weight Loss (Severe ),Physical Changes (Moderate) Intake Problem Increased Nutrient Needs (specify) Etiology protein r/t skin breakdown Signs/Symptoms as evidenced by PI to midback, R hip, R foot Status Active Problem Inadequate Oral Intake Status Inactive Problem Clinical Problem Biting/Chewing Difficulty Etiology related to loose fitting top dentures Signs/Symptoms as evidenced by need for modified consistency diet to help w/ ease of eating per nsg Status Active Problem Acute Disease or Injury Related Malnutrition Etiology related to inadequate energy intake Signs/Symptoms as evidenced by 4.5% unintended wt loss x 2 wks, meeting ~50% of est nutritional needs and fat/muscle loss in face/orbitals/clavicle region also w/ multiple PI midback and R hip/R foot Status Active Problem Recommendation Dietitian Will order magic cup w/ lunch and dinner for increased Recommendations/ nutrition if consumed. Changes Rec consider appetite stimulant to help encourage increased po intake at meals/ONS Continue liberal regular diet d/t signs and symptoms of malnutrition Continue to provide fortified foods at meals as able for increased nutrition if consumed. Continue Ari bid w/ meals and 4 oz ensure plus high protein 4x/day w/ medpass for increased nutrition if consumed. Weight / BMI Weight Weight: 43.227 kg Body Mass Index (BMI) 17.9 ABG / Lab / Microbiology Data 05/07/24 05:22 05/07/24 05:22 Laboratory: Laboratory Results - last 24 hr 05/07/24 05:22: WBC 7.3, RBC 4.53, Hgb 11.9 L, Hct 37.2, MCV 82.1, MCH 26.3 L, MCHC 32.0, RDW Std Deviation 61.3 H, RDW Coeff of [place] 20.5 H, Plt Count 250, MPV 10.1, Immature Gran % (Auto) 0.700, Neut % (Auto) 62.3, Lymph % (Auto) 23.8, [place] % (Auto) 10.0, Eos % (Auto) 2.5, Baso % (Auto) 0.7, Absolute Neuts (auto) 4.5, Absolute Lymphs (auto) 1.73, Nucleated RBC % 0, Anisocytosis 1+, Sodium 137, Potassium 4.3, Chloride 104, Carbon Dioxide 22.6, Anion Gap 11, BUN 43 H, Creatinine 0.73, Estim Creat Clear Calc 35.72 L, Est GFR (MDRD) Af Amer Not Reportable, Est GFR (MDRD) Non-Af 81, BUN/Creatinine Ratio 59.1 H, Glucose 88, Calcium 8.8 Microbiology: Microbiology 04/22/24 18:30 Wound - Hip Gram Stain - Final 04/22/24 18:30 Wound - Hip Wound Culture - Final Proteus mirabilis 04/16/24 05:00 Nasal Secretion SARS-CoV-2 Antigen (Rapid) - Final 04/11/24 20:15 Urine Catheter - Catheter Urine Culture - Final Culture exhibits no growth. 04/12/24 20:00 Mucosa - Nasopharyngeal Respiratory Panel (PCR) - Final 04/12/24 09:40 Nasal Secretion SARS-CoV-2 Antigen (Rapid) - Final 04/09/24 05:00 Nasal Secretion SARS-CoV-2 Antigen (Rapid) - Final D/C Instructions Discharge Diet: No restrictions Discharge Activity: Return to Normal Activity, May Shower and Use Walker Weight Bearing Status: Weight bearing as tolerated Call your doctor if you observe: Fever of 101 or Higher, Inability to urinate, Inability to have a bowel movement, Shortness of breath, Dizziness, Fainting spells, Swelling in the ankles, Chest pain and Uncontrolled pain DC O2, CPAP, BIPAP Needs Home O2 Discharge instructions: No Additional Instructions: Discharge 05/14/2024 to [facility]. Please Follow Up With: [facility] When: As scheduled. Meaningful Use Info Meaningful Use Meaningful Use Diagnoses (Choose all that apply): None applicable Ischemic Stroke Statin Dosing Therapy Reference: STATIN DOSE THERAPY REFERENCE: * Patients > 75 years receive moderate or high dose statin therapy. * Patients 75 years or YOUNGER should receive HIGH intensity statin dose unless contraindicated. You will be required to document reason for non-treatment if statin daily dose does not meet guidelines. HIGH DOSE STATIN THERAPY DAILY Atorvastatin > than or = to 40 mg Rosuvastatin > than or = to 20 mg Amlodipine + Atorvastatin > than or = to 2.5/40 mg Ezetimibe + Simvastatin 10/80 mg Simvastatin 80mg Discharge Plan Admission Admit Date/Time: 04/08/24 12:43 Primary Reason for Your Visit: Debility. Attending Provider: Enrike Dobbins Chi Primary Care Provider: Enrike Dobbins Chi Consulting Providers: Gm Freeman; Niall Roche; Sandra Langston; Le Marcano; Chaya West; Breanna Ceja BRAKE LINING FINISHER; Catina Yousif Instructions Additional Instructions / Restrictions: Discharge 05/14/2024 to [facility] in [facility]. Discharge Orders/Prescriptions Prescriptions: New acetaminophen 500 mg Tablet 1,000 mg PO Q8 Qty: 0 0RF calcium carbonate 200 mg calcium (500 mg) Tablet,Chewable 500 mg PO BIDCM Qty: 0 0RF levothyroxine 75 mcg Tablet 75 mcg PO DAILY@0600 Qty: 0 0RF lorazepam 0.5 mg Tablet 0.5 mg PO Q4H PRN PRN (Reason: Anxiety/Restlessness/Sleep) 3 Days Qty: 18 0RF losartan 100 mg Tablet 100 mg PO DAILY Qty: 0 0RF menthol-zinc oxide [Calmoseptine] 0.44-20.6 % Ointment 1 applic topical BID Qty: 0 0RF Protocol: *Topical Application Instructions APPLICATION INSTRUCTIONS: bilat buttocks, ischial folds Ensure Plus High Protein 0.08 gram-1.5 kcal/mL Liquid 120 ml PO 4X/DAY Qty: 0 0RF sennosides-docusate sodium [Stimulant Laxative Plus] 8.6-50 mg Tablet 1 tab PO BID Qty: 0 0RF potassium chloride 20 mEq Tablet,Er Particles/Crystals 20 meq PO BID Qty: 0 0RF metoprolol succinate 25 mg Tablet Extended Release 24 Hr 25 mg PO DAILY Qty: 0 0RF Continued Eliquis 5 mg tablet 5 mg PO BID Qty: 60 6RF atorvastatin 40 mg Tablet 40 mg PO QHS 30 Days Qty: 30 0RF amiodarone 200 mg Tablet 200 mg PO BID Qty: 0 0RF isosorbide mononitrate 30 mg tablet extended release 24 hr 60 mg PO DAILY Qty: 180 3RF Rx Instructions: Must be white pill not red pill clopidogrel 75 mg tablet 75 mg PO DAILY Qty: 90 3RF Discontinued galantamine 4 mg tablet 8 mg PO BIDCM levothyroxine 50 mcg tablet 50 mcg PO QDAY potassium chloride [Klor-Con M20] 20 mEq tablet,ER particles/crystals 20 meq PO BID cholecalciferol (vitamin D3) 25 mcg (1,000 unit) tablet 25 mcg PO DAILY acetaminophen 325 mg Tablet 650 mg PO Q4H PRN PRN (Reason: Fever, pain -12/05) Qty: 0 0RF Ensure Plus High Protein 0.08 gram-1.5 kcal/mL Liquid 120 ml PO 4X/DAY Qty: 120 0RF metoprolol succinate 50 mg Tablet Extended Release 24 Hr 50 mg PO DAILY Qty: 0 0RF losartan 25 mg Tablet 25 mg PO DAILY Qty: 0 0RF ceftriaxone 1 gram recon soln 1 g IM DAILY 4 Days Qty: 4 0RF nitroglycerin 0.4 mg tablet, sublingual 0.4 mg SUBLINGUAL UD MDD Q5min prn PRN (Reason: Cardiac/Chest Pain) Qty: 25 3RF Referrals / Follow Up: Enrike Dobbins Chi, MD [Primary Care Provider] - Angelica Jackson PA [Med Staff - Adv Practice Prof] - 05/21/24 9:30 am Disposition Disposition (needs filled in before D/C Order can be placed): Hospice in Medical Facility
[2024-04-21] MEDS: Ensure Plus High Protein 120 ML LIQUID PO ×2 (17:36→21:19)
[2024-04-21 21:00] VITALS: PULSE 66; O2SAT 98
[2024-04-21] MEDS: LORazepam 0.5 MG Tablet PO (21:19)
[2024-04-21] MEDS: Atorvastatin Calcium 40 MG Tablet PO (21:23)
[2024-04-22] MEDS: Levothyroxine 75 MCG Tablet PO (05:39)
[2024-04-22] MEDS: Ensure Plus High Protein 120 ML LIQUID PO ×4 (05:40→21:49)
[2024-04-22] MEDS: Acetaminophen 500 MG Tablet 1000 MG PO ×3 (05:40→21:49)
[2024-04-22] MEDS: Calcium Carbonate 500 MG Tablet PO ×2 (07:52→17:12)
[2024-04-22] MEDS: Amiodarone 200 MG Tablet PO ×2 (07:53→21:53)
[2024-04-22] MEDS: Isosorbide Mononitrate 60 MG Tablet PO (07:53)
[2024-04-22] MEDS: Losartan Potassium 50 MG Tablet PO (07:53)
[2024-04-22] MEDS: Clopidogrel Bisulfate 75 MG Tablet PO (07:53)
[2024-04-22] MEDS: Potassium Chloride Oral Tablet 20 MEQ PO ×2 (07:53→21:49)
[2024-04-22] MEDS: APIXABAN 5 MG TABLET PO ×2 (07:53→21:49)
[2024-04-22 07:54] VITALS: BP 141/74; PULSE 57
[2024-04-22] MEDS: Metoprolol(XL)Succ 25 MG Tablet PO (07:54)
[2024-04-22] MEDS: Senna/Docusate Sodium 1 Tablet PO ×2 (07:54→21:53)
[2024-04-22] MEDS: DAKIN'S SOL HALF STRENGTH (=0.25%) TOPICAL ×2 (07:59→21:45)
[2024-04-22] MEDS: Menthol/Lanolin/Calamine/Znox 113 GM Tube 1 APPLIC TOPICAL ×2 (07:59→21:45)
[2024-04-22 10:00] VITALS: BP 141/74; PULSE 57; RESP 16; TEMP 36.2; O2SAT 97
[2024-04-22 13:00] VITALS: BMI 18.4
--- NOTE | 2024-04-22 13:03 | CASEMGMT ---
Social Work Giuliana rescheduled onsite for this date at 1500. Giuliana wants to see wound prior to making a decision. IDT updated. EMIGDIO will continue to follow. Claudine Garcia METAL FABRICATING SUPERVISOR STRATEGIC SOURCING CONSULTANT
--- NOTE | 2024-04-22 16:13 | CASEMGMT ---
Social Work Received outcome from [facility] that d/t pressure ulcer, they cannot accept, without the assistance from hospice services. They are willing to review once wound heals. SW inquired to [facility] wound nurse on prognosis of wound healing. The healing is anticipated to take several months, possible need for surgical intervention in the future, pending outcome from current treatment. IDT confirms the plan will need to be SNF placement. SW left with son to discuss. Claudine Garcia BEAN SORTER AUTOMOTIVE QUALITY ENGINEER
--- NOTE | 2024-04-22 18:39 | NURSING ---
Patient's nephew and his significant other come in upset this evening after call from [facility] that patient was not accepted d/t un-stageable wound to right hip. They state that they were unaware of wound to hip and did not know that she had such a significant wound. Image of wound shown to family and nephew's significant other states she is a nurse and wants a wound culture and patient to be checked for osteomyelitis. This nurse states that wound nurse is closely following patient's wounds and that she has been monitoring the healing process but that I wound make Dr. Dobbins aware of desire for further testing. Dr. Dobbins is at nurses station and approaches and states he will order wound culture and will consult Dr. Freeman. Patient's nephew reassured and thankful after discussion and deny further questions at this time. Wound culture collected and sent this evening and Dr. Freeman consulted.
[2024-04-22 20:11] LABS: M R Staph aureus DNA By PCR Negative (Negative); Probe Check PASS; Specimen Processing Control PASS; Staph aureus DNA By PCR NEGATIVE (Negative)
[2024-04-22] MEDS: Atorvastatin Calcium 40 MG Tablet PO (21:49)
[2024-04-22 21:51] VITALS: BP 145/85; PULSE 58; RESP 17; TEMP 36.3; O2SAT 99
[2024-04-23] MEDS: Acetaminophen 500 MG Tablet 1000 MG PO ×3 (04:44→20:35)
[2024-04-23] MEDS: Levothyroxine 75 MCG Tablet PO (04:44)
[2024-04-23 05:47] LABS: Absolute Lymphocyte Count 2.06 X10^3/uL (0.83-4.51); Absolute Neutrophil Count 4.6 X10^3/uL (2.0-7.7); Basophil# 0.13 X10^3/uL; Basophil% 1.6 % (0-1); Eosinophil# 0.26 X10^3/uL; Eosinophils% 3.2 % (0-5); Hematocrit 37.1 % (37-47); Hemoglobin 11.8 g/dL (12.0-15.0); Lymphocyte # 2.06 X10^3/ul (0.83-4.51); Lymphocyte % 25.4 % (19-41); Mean Corp Hgb Conc 31.8 g/dL (32-36); Mean Corpuscular Volume 81.7 fL (81-99); Mean Platelet Vol. 9.1 fl (6.2-12.0); Monocyte# 0.94 X10^3/uL; Monocyte% 11.6 % (0-10); NRBC Flagged by Analyzer 0 % (0-5); Neutrophil # 4.59 X10^3/uL (2.7-7.7); Neutrophil % 56.5 % (47-70); Platelet Count 530 K/mm3 (150-450); RBC Distribution Width CV 18.6 % (11.6-14.6); RBC Distribution Width SD 54.8 fl (35.1-43.9); Red Blood Count 4.54 M/mm3 (4.2-5.4); White Blood Count 8.1 K/mm3 (4.4-11.0)
[2024-04-23] MEDS: Menthol/Lanolin/Calamine/Znox 113 GM Tube 1 APPLIC TOPICAL ×2 (10:37→20:28)
[2024-04-23] MEDS: Calcium Carbonate 500 MG Tablet PO (10:37)
[2024-04-23 10:38] VITALS: BP 183/89; PULSE 61
[2024-04-23] MEDS: APIXABAN 5 MG TABLET PO ×2 (10:38→20:30)
[2024-04-23] MEDS: Potassium Chloride Oral Tablet 20 MEQ PO ×2 (10:38→20:30)
[2024-04-23] MEDS: Metoprolol(XL)Succ 25 MG Tablet PO (10:38)
[2024-04-23] MEDS: Amiodarone 200 MG Tablet PO ×2 (10:38→20:29)
[2024-04-23] MEDS: DAKIN'S SOL HALF STRENGTH (=0.25%) TOPICAL ×2 (10:38→20:27)
[2024-04-23] MEDS: Isosorbide Mononitrate 60 MG Tablet PO (10:38)
[2024-04-23] MEDS: Senna/Docusate Sodium 1 Tablet PO ×2 (10:38→20:32)
[2024-04-23] MEDS: Losartan Potassium 50 MG Tablet PO (10:38)
[2024-04-23] MEDS: Clopidogrel Bisulfate 75 MG Tablet PO (10:38)
[2024-04-23 10:52] VITALS: PULSE 61; RESP 16; O2SAT 99
[2024-04-23 11:00] VITALS: BP 183/89; PULSE 60; RESP 16; TEMP 36.2; O2SAT 99
--- NOTE | 2024-04-23 12:53 | WOUNDNOTE ---
Dr Freeman in to see patient for wound to the right hip. a very small amount of necrotic tissue was removed. there is less odor noted. no purulence. patient c/o some mild discomfort to wound. Dr Freeman agrees with current treatment of Dakins moistened gauze BID and will monitor the progression of the wound. D/T patient laying for an unknown amount of days in the bathtub, the pressure injury may still be evolving. Pt aware to keep wound offloaded as much as possible.
[2024-04-23] MEDS: Ensure Plus High Protein 120 ML LIQUID PO ×3 (13:41→20:28)
[2024-04-23 13:43] VITALS: BP 94/51; PULSE 55
--- NOTE | 2024-04-23 16:00 | CASEMGMT ---
Social Work EMIGDIO received return call from jarvis and CARMINE, Genesis, station engineer main line as well. EMIGDIO explained [facility] completed the onsite and d/t the hip wound, they are unable to accept without hospice services. EMIGDIO explained hospice can manage the wound, however, the therapy will stop. SW explained the information received from the wound nurse. SW suggested pt being more appropriate for SNF. Jarvis and Genesis shared, they did speak with [facility] last evening after the assessment, and received that same information. Nephew stated they were unaware of pt having a hip wound, as family was only told the pt had skin tears, specifically on her heels. Both expressed frustration with that news, and apologized to [facility] for wasting their time as they knew that was not the appropriate LOC with this type of wound care. Family stated after that phone call from [facility], they visited pt, spoke with Dr. Dobbins who was on the unit; floor nurse showed family the pt's pictures of the wound, and gained further understanding of the pain pt is enduring d/t wound. Both expressed disappointment with lack of communication since hospitalization on the pt's wound status. SW profusely apologized for miscommunication/lack of communication about the wound care. EMIGDIO explained that is not [facility]'s standard of care and will escalate to Director of the unit to investigate the breakdown of communication and resolution. SW explained that is outside of this worker's scope to discuss intensity of wound care and the AL makes the final determination on acceptance/denial. Family stated they were understanding why and how the wound originated, but were not aware pt had it. Genesis is an RN and asked several follow up questions regarding treatment plan for the wound. EMIGDIO took Genesis's questions, and will pass along to the charge nurse to get follow up. Nephew/son were gracious with the mishap, but would like further information, as they discussed privately that they do not want surgical intervention, if that is needed; they prefer comfort measures for pt given her age and comorbidities, as they are unsure pt would tolerate a surgery. EM[facility]DIO accepted and will notify charge nurse as well, as Dr. Freeman was consulted. Family appreciative. SW redirected to DC planning, explaining a DC date will not be set until further wound care is determined. Explained if therapy warrants tapering minutes, that can happen, as Medicare will continue covering for the wound care, as that is a skillable need. Though, requested family still pursue SNF decision as pt will need a DC plan. SW will continue to make referrals and assist with DC. Family agreed, expressed understanding and appreciation for this worker's assistance. - SW spoke with Director and Charge Nurse for follow up. Claudine Garcia UNINDENTURED APPRENTICE SLEEVE TAILOR
--- NOTE | 2024-04-23 17:02 | EX.PCM.CON.S ---
Assessment & Plan Assessment/Plan (1) Trochanteric ulcer of right hip: PLAN: This is an evolving pressure injury from her time while she was incapacitated Recommend pressure offloading with every 2 hours turns and a pressure offloading bed as tolerated. She should not lay on this ulcer at all Recommend Dakin's wet to dry dressings twice daily and plastic surgery will monitor and debride as needed. Recommend nutrition consult as well as nutrition labs (albumin and prealbumin) weekly. Anticipate outpatient follow-up in the wound care center. HPI Consult Data Date of Consult: 04/23/24 HPI Narrative HPI Narrative: STANLEY RODRIGUEZ, is a 83 F who presents as a patient in the transitional care unit after she was hospitalized and found unresponsive in her bathtub secondary to ventricular tachycardia complicated by rhabdomyolysis, urinary tract infection, and a pressure wound on her right hip. Patient has been progressing with therapy. The primary team has noticed a developing pressure injury over the right hip from where she was laying in the bathtub. An x-ray was obtained in the 15 April 2024 and did not demonstrate any acute bony abnormality/dislocation/fracture. Today in the transitional care unit she has a normal white blood cell count of 8. She is afebrile with stable vital signs [facility] Medical History Hypothyroidism Atrial fibrillation Loss of hearing Thyroid disease Smoker History of atrial fibrillation Carotid stenosis, right History of atrial fibrillation Preoperative cardiovascular examination Wears glasses Wears dentures Cancer Anxiety Back pain Bladder disease High cholesterol TIA (transient ischemic attack) Difficulty chewing Former smoker History of echocardiogram History of stress test History of pacemaker Cardiology follow-up encounter History of heart attack History of irregular heartbeat Aneurysm, carotid artery, internal Carotid stenosis, right Rash Essential hypertension Leukocytosis Paroxysmal atrial fibrillation Presence of stent in coronary artery (~10/02/17) Essential hypertension ICD (implantable cardioverter-defibrillator) discharge Chest pain Chronic dental infection Abnormal stress test GI bleed Hypokalemia Bladder cancer 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 Ischemic cardiomyopathy Ventricular tachycardia Presence of cardiac defibrillator (~2005) Long-term use of high-risk medication Tobacco abuse Erythrocytosis Old myocardial infarction (~1997) Back problem Arthritis Bladder tumor Polycythemia vera Hypocalcemia Hyperlipidemia Cellulitis of right upper extremity 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 Polycythemia Home Medications ?Medication ?Instructions ?Recorded ?Last Taken ?Type isosorbide mononitrate 30 mg 60 mg (2 x 30 mg) PO DAILY heart 04/25/23 06/12/23 Rx tablet,extended release 24 hr #180 tabs potassium chloride 20 mEq 20 meq PO BID HYPOKALEMIA 05/23/23 06/11/23 History tablet,extended release(part/cryst) (Klor-Con M) atorvastatin 40 mg tablet 40 mg PO QHS cholesterol 30 days 06/27/23 Unknown Rx #30 tabs galantamine 4 mg tablet 8 mg PO BIDCM memory 08/01/23 Unknown History apixaban 5 mg tablet (Eliquis) 5 mg PO BID blood thinner #60 tabs 01/03/24 Unknown Rx clopidogrel 75 mg tablet 75 mg PO DAILY prevent clots #90 01/31/24 Unknown Rx tabs nitroglycerin 0.4 mg sublingual 0.4 mg sublingual UD PRN 01/31/24 Unknown Rx tablet Cardiac/Chest Pain #25 tabs levothyroxine 50 mcg tablet 50 mcg PO QDAY thyroid 02/04/24 Unknown History cholecalciferol (vitamin D3) 25 25 mcg PO DAILY supplement 04/03/24 Unknown History mcg (1,000 unit) tablet acetaminophen 325 mg tablet 650 mg (2 x 325 mg) PO Q4H PRN PRN 04/08/24 Unknown Rx Fever, pain 1-12/05 #0 tabs amiodarone 200 mg tablet 200 mg PO BID heart #0 tabs 04/08/24 Unknown Rx ceftriaxone 1 gram solution for 1 g IM DAILY infection 4 days #4 ea 04/08/24 Unknown Rx injection food supplemt, lactose-reduced 120 ml PO 4X/DAY supplement #120 mL 04/08/24 Unknown Rx 0.08 gram-1.5 kcal/mL oral liquid (Ensure Plus High Protein) losartan 25 mg tablet 25 mg PO DAILY BP #0 tabs 04/08/24 Unknown Rx metoprolol succinate 50 mg 50 mg PO DAILY pulse/BP #0 tabs 04/08/24 Unknown Rx tablet,extended release 24 hr Allergy/AdvReac Type Severity Reaction Status Date / Time doxazosin (From Cardura) AdvReac Severe Itching Verified 04/03/24 16:25 Influenza Virus Vaccines AdvReac Severe Other Verified 04/03/24 16:25 Family History Mother Heart disease Myocardial infarction Brother Cancer CAD (coronary artery disease) Brother CAD (coronary artery disease) Brother CAD (coronary artery disease) Surgical History History of cardiac catheterization History of bladder surgery History of carotid endarterectomy History of right-sided carotid endarterectomy History of implantable cardiac defibrillator (ICD) Presence of coronary angioplasty implant and graft (01/03/24) History of cataract extraction History of back surgery History of cholecystectomy History of mandibular surgery History of mandibular surgery ICD SURGERY History of back surgery Hx of cholecystectomy H/O cataract extraction Social History household members: none Smoking Status: Current some day smoker tobacco type: cigarettes how long ago did patient quit smokin years ago alcohol intake: current alcohol intake frequency: holidays/special occasions only Alcohol type: wine caffeine: Yes Type: coffee Number of servings: 4 Physical Exam Narrative Right lateral thigh: Seen and examined today and probed. No signs of fluid collection. The wound is full-thickness and is stage III down to fascia. There is no surrounding induration or signs of cellulitis. There is minimal soft tissue between the trochanteric region of the femur (this is a trochanteric wound) and the wound. There is fibrinous exudate at the base of the wound. Medical Records Data Medical Nutrition Assessment Dietitian: Malnutrition Criteria Met Start: 04/09/24 12:04 Freq: Status: Active Protocol: Document 04/23/24 15:05 [facility] (Rec: 04/23/24 15:05 [facility] [id number]) Nutrition Malnutrition Evidence of Yes Malnutrition Exists Evidenced By Weight Loss (Severe),Physical Changes (Moderate) Intake Problem Increased Nutrient Needs (specify) Etiology protein r/t skin breakdown Signs/Symptoms as evidenced by PI to midback, R hip, R foot Status Active Problem Inadequate Oral Intake Status Inactive Problem Clinical Problem Biting/Chewing Difficulty Etiology related to loose fitting top dentures Signs/Symptoms as evidenced by need for modified consistency diet to help w/ ease of eating per nsg Status Active Problem Acute Disease or Injury Related Malnutrition Etiology related to inadequate energy intake Signs/Symptoms as evidenced by 6.2% unintended wt loss since adm, meeting ~50% of est nutritional needs and fat/muscle loss in face/orbitals/clavicle region also w/ multiple PI midback and R hip/R foot Status Active Problem Recommendation Dietitian Continue liberal regular diet d/t signs and symptoms of Recommendations/ malnutrition Changes Continue to provide fortified foods at meals as able for increased nutrition if consumed. Continue Ari bid w/ meals and 4 oz ensure plus high protein 4x/day w/ medpass for increased nutrition if consumed. Lab / Micro Data 04/23/24 05:07 04/16/24 05:08 Labs: Laboratory Results - last 24 hr 04/22/24 18:30: S.aureus Protein A PCR NEGATIVE, MRSA (PCR) Negative 04/23/24 05:07: WBC 8.1, RBC 4.54, Hgb 11.8 L, Hct 37.1, MCV 81.7, MCH 26.0 L, MCHC 31.8 L, RDW Std Deviation 54.8 H, RDW Coeff of Hood 18.6 H, Plt Count 530 H, MPV 9.1, Immature Gran % (Auto) 1.700 H, Neut % (Auto) 56.5, Lymph % (Auto) 25.4, [place] % (Auto) 11.6 H, Eos % (Auto) 3.2, Baso % (Auto) 1.6 H, Absolute Neuts (auto) 4.6, Absolute Lymphs (auto) 2.06, Nucleated RBC % 0 Micro: Microbiology 04/22/24 18:30 Wound - Hip Gram Stain - Final 04/22/24 18:30 Wound - Hip Wound Culture - Preliminary Gram negative [facility] I reviewed the x-rays of the hip Charges/Coding Multi Select Codes Visit Charges Office Visit/Consults: 27025 OP Consult L4
[2024-04-23 20:16] VITALS: BP 124/74; PULSE 56
[2024-04-23] MEDS: LORazepam 0.5 MG Tablet PO (20:29)
[2024-04-23] MEDS: Atorvastatin Calcium 40 MG Tablet PO (20:31)
[2024-04-24] MEDS: Acetaminophen 500 MG Tablet 1000 MG PO ×3 (05:17→20:35)
[2024-04-24] MEDS: Levothyroxine 75 MCG Tablet PO (05:17)
[2024-04-24] MEDS: Ensure Plus High Protein 120 ML LIQUID PO ×4 (05:18→20:34)
[2024-04-24 09:32] VITALS: BP 121/61; PULSE 56; RESP 16; TEMP 36.6; O2SAT 97
[2024-04-24] MEDS: APIXABAN 5 MG TABLET PO ×2 (09:34→20:36)
[2024-04-24] MEDS: Senna/Docusate Sodium 1 Tablet PO ×2 (09:34→20:36)
[2024-04-24] MEDS: Amiodarone 200 MG Tablet PO ×2 (09:34→20:37)
[2024-04-24] MEDS: Potassium Chloride Oral Tablet 20 MEQ PO ×2 (09:34→20:37)
[2024-04-24] MEDS: Clopidogrel Bisulfate 75 MG Tablet PO (09:34)
[2024-04-24] MEDS: Calcium Carbonate 500 MG Tablet PO ×2 (09:34→17:02)
[2024-04-24] MEDS: Losartan Potassium 50 MG Tablet PO (09:34)
[2024-04-24] MEDS: Isosorbide Mononitrate 60 MG Tablet PO (09:34)
[2024-04-24 09:35] VITALS: PULSE 71
[2024-04-24] MEDS: Metoprolol(XL)Succ 25 MG Tablet PO (09:35)
[2024-04-24] MEDS: DAKIN'S SOL HALF STRENGTH (=0.25%) TOPICAL ×2 (09:35→20:38)
[2024-04-24] MEDS: Menthol/Lanolin/Calamine/Znox 113 GM Tube 1 APPLIC TOPICAL ×2 (09:35→20:38)
[2024-04-24 09:41] VITALS: PULSE 71; RESP 16; O2SAT 97
--- NOTE | 2024-04-24 11:27 | WOUNDNOTE ---
Nursing had already changed the dressing to the right hip. peeled dressing back to assess. wound remains stable. still moderate slough noted, but appears to be lessening. Dr Freeman may perform another bedside debridement at some point.
--- NOTE | 2024-04-24 13:09 | NURSING ---
Addendum entered by Mariana Quinones 04/25/24 08:01: Correction: spoke with resident's nephew Kuldip, not son. Original Note: Notified by SW that resident's son had list of questions about wound. Called and spoke with Kuldip, discussed that wound culture had been done, physician will review results. Let him know it was passed along that family had asked about vascular consult and xray and that nursing would leave those requests for Dr. Dobbins to address. Discussed that at this time resident keeps pressure off of wound, don't see indication for a special mattress, but if anything changes a matterss can be ordered. Also discussed that podiatry doesn't come to TCU for routine nail care but will pass along to staff to address cleaning/trimming nails if appropriate. He asked that if staff unable to trim nails to let him know and he would see about having someone come in to trim them. He denied any other questions or concerns. He thanked RN for call and the great care his mother is getting.
[2024-04-24 15:58] LABS: Anion Gap 14 (5-15); BUN 38 mg/dL (4-19); BUN/Creat Ratio 51.6 RATIO (10-20); Calcium 9.1 mg/dL (7.6-11.0); Chloride 104 mmol/L (96-108); Creatinine, Serum 0.7 mg/dL (0.6-1.0); EST Glomerular Filtration Rate 80 (>60); Estimated Creatinine Clearance 36.66 ml/min; Glucose 90 mg/dL (70-99); Sodium Level 139 mmol/L (133-145)
--- NOTE | 2024-04-24 17:57 | NURSING ---
dr khanna updated on wound culture results, new order for augmentin. family requesting testing to r/o osteomyelitis. new order for MRI rt hip w/contrast.
[2024-04-24] MEDS: LORazepam 0.5 MG Tablet PO (20:34)
[2024-04-24] MEDS: Atorvastatin Calcium 40 MG Tablet PO (20:36)
[2024-04-24 20:42] VITALS: BP 152/74; PULSE 56
[2024-04-25] MEDS: Ensure Plus High Protein 120 ML LIQUID PO ×3 (04:53→17:13)
[2024-04-25] MEDS: Levothyroxine 75 MCG Tablet PO (05:00)
[2024-04-25] MEDS: Acetaminophen 500 MG Tablet 1000 MG PO ×3 (05:01→23:11)
--- NOTE | 2024-04-25 08:40 | NURSING ---
Addendum entered by Mariana Quinones 04/25/24 08:58: Spoke with [facility], they can take resident at 0915 if order faxed down. Order faxed to them. Original Note: Per MRI unable to do scan because of pacer. Updated Dr. Dobbins, verbal order for bone scan to be done.
--- NOTE | 2024-04-25 09:26 | NURSING ---
Patient left floor at 9:10am for bone scan.
--- NOTE | 2024-04-25 09:36 | NURSING ---
Patient returned to floor at 9:35am.
[2024-04-25 09:40] VITALS: BP 166/72; PULSE 55
[2024-04-25] MEDS: Senna/Docusate Sodium 1 Tablet PO ×2 (09:40→23:11)
[2024-04-25] MEDS: Calcium Carbonate 500 MG Tablet PO ×2 (09:40→17:13)
[2024-04-25] MEDS: APIXABAN 5 MG TABLET PO ×2 (09:40→23:12)
[2024-04-25] MEDS: Amiodarone 200 MG Tablet PO ×2 (09:40→23:11)
[2024-04-25] MEDS: Isosorbide Mononitrate 60 MG Tablet PO (09:40)
[2024-04-25] MEDS: Metoprolol(XL)Succ 25 MG Tablet PO (09:40)
[2024-04-25] MEDS: Potassium Chloride Oral Tablet 20 MEQ PO ×2 (09:40→23:12)
[2024-04-25] MEDS: Amox/Clavulanate 500 MG Tablet PO ×2 (09:40→17:13)
[2024-04-25] MEDS: Losartan Potassium 50 MG Tablet PO (09:40)
[2024-04-25] MEDS: Clopidogrel Bisulfate 75 MG Tablet PO (09:40)
[2024-04-25] MEDS: Menthol/Lanolin/Calamine/Znox 113 GM Tube 1 APPLIC TOPICAL ×2 (09:42→23:13)
[2024-04-25 10:08] VITALS: BP 166/72; PULSE 55; RESP 18; O2SAT 99
--- NOTE | 2024-04-25 12:10 | NURSING ---
Patient left floor at 12:05pm for bone scan.
[2024-04-25] MEDS: DAKIN'S SOL HALF STRENGTH (=0.25%) TOPICAL ×2 (13:20→23:13)
--- NOTE | 2024-04-25 14:48 | NURSING ---
Udpated Nephew Kuldip that bone scan does not show osteomyelitis. Also let him know she'd like to have hair done, he will bring quiroga or check this afternoon.
--- NOTE | 2024-04-25 16:55 | NURSING ---
Dressing to right hip changed per orders. Tolerated well. Moderate amount of serosanguineous drainage noted on old bandage. Area cleansed, Dakin moistened gauze applied to wound bed, DCD applied. No C/O's voiced.
--- NOTE | 2024-04-25 17:11 | CASEMGMT ---
Social Work Pt's nephew and SO presented to this worker's office. Inquired about DC timeframe. SW explained d/t wound care and new involvement with Dr. Freeman, there is no timeframe determined. Explained that will be determined [id number], though advanced notice will be given to family. Family in agreement. Family explained the plan is for pt to still DC to [facility], in their memory care unit, with hospice services. Family prefers pt pursue comfort care at that time and with this worker's explanation, understands pt will adopt all hospice services with election, outside of wound care. SW suggested contacting [facility] to secure the room, and can begin moving furniture into room to be ready when a DC date is set. Family agree and will pursue. SW to assist with coordination of DME and hospice once DC timeframe/date is known. Family expressed appreciation for this worker's assistance. SW will continue to follow for DC planning and support. Claudine Garcia PARKING STATION ATTENDANT CORPORATE RELATIONS MANAGER
[2024-04-25] MEDS: LORazepam 0.5 MG Tablet PO (23:09)
[2024-04-25] MEDS: Atorvastatin Calcium 40 MG Tablet PO (23:13)
[2024-04-25 23:15] VITALS: RESP 16; O2SAT 98
[2024-04-25 23:29] VITALS: BP 169/84; PULSE 61
[2024-04-26] VITALS (7 sets, daily range): BP systolic 140–160; BP diastolic 75–76; PULSE 55–60; RESP 16–18; TEMP 36.6–36.8; O2SAT 97–98
[2024-04-26] MEDS: Levothyroxine 75 MCG Tablet PO (05:20)
[2024-04-26] MEDS: Ensure Plus High Protein 120 ML LIQUID PO ×4 (05:20→21:59)
[2024-04-26] MEDS: Acetaminophen 500 MG Tablet 1000 MG PO ×3 (05:20→22:01)
[2024-04-26] MEDS: Losartan Potassium 50 MG Tablet PO (08:55)
[2024-04-26] MEDS: Calcium Carbonate 500 MG Tablet PO ×2 (08:55→17:48)
[2024-04-26] MEDS: Senna/Docusate Sodium 1 Tablet PO ×2 (08:55→22:01)
[2024-04-26] MEDS: APIXABAN 5 MG TABLET PO ×2 (08:55→21:59)
[2024-04-26] MEDS: Potassium Chloride Oral Tablet 20 MEQ PO ×2 (08:55→22:00)
[2024-04-26] MEDS: Amiodarone 200 MG Tablet PO ×2 (08:55→21:58)
[2024-04-26] MEDS: Isosorbide Mononitrate 60 MG Tablet PO (08:55)
[2024-04-26] MEDS: Amox/Clavulanate 500 MG Tablet PO ×2 (08:56→17:48)
[2024-04-26] MEDS: Clopidogrel Bisulfate 75 MG Tablet PO (08:56)
[2024-04-26] MEDS: Menthol/Lanolin/Calamine/Znox 113 GM Tube 1 APPLIC TOPICAL ×2 (08:59→21:57)
[2024-04-26] MEDS: Metoprolol(XL)Succ 25 MG Tablet PO (10:50)
[2024-04-26] MEDS: DAKIN'S SOL HALF STRENGTH (=0.25%) TOPICAL ×2 (10:51→21:59)
--- NOTE | 2024-04-26 15:00 | NURSING ---
Dr. Dobbins updated on pt's Blood pressure trending upward. N.O. Received to increase Cozaar from 50mg to 100mg daily. Order Read back.
[2024-04-26] MEDS: Atorvastatin Calcium 40 MG Tablet PO (22:00)
[2024-04-27] MEDS: Ensure Plus High Protein 120 ML LIQUID PO ×4 (05:26→20:30)
[2024-04-27] MEDS: Levothyroxine 75 MCG Tablet PO (05:27)
[2024-04-27] MEDS: Acetaminophen 500 MG Tablet 1000 MG PO ×3 (05:27→20:27)
[2024-04-27] MEDS: Amox/Clavulanate 500 MG Tablet PO ×2 (08:04→18:01)
[2024-04-27] MEDS: Calcium Carbonate 500 MG Tablet PO ×2 (08:05→18:02)
[2024-04-27] MEDS: Amiodarone 200 MG Tablet PO ×2 (08:05→20:26)
[2024-04-27] MEDS: Potassium Chloride Oral Tablet 20 MEQ PO ×2 (08:06→20:26)
[2024-04-27] MEDS: APIXABAN 5 MG TABLET PO ×2 (08:06→20:26)
[2024-04-27] MEDS: Isosorbide Mononitrate 60 MG Tablet PO (08:06)
[2024-04-27] MEDS: DAKIN'S SOL HALF STRENGTH (=0.25%) TOPICAL ×2 (08:06→20:24)
[2024-04-27 08:07] VITALS: BP 116/84; PULSE 63
[2024-04-27] MEDS: Clopidogrel Bisulfate 75 MG Tablet PO (08:07)
[2024-04-27] MEDS: Metoprolol(XL)Succ 25 MG Tablet PO (08:07)
[2024-04-27] MEDS: Senna/Docusate Sodium 1 Tablet PO ×2 (08:07→20:27)
[2024-04-27] MEDS: Losartan Potassium 100 MG Tablet PO (08:15)
[2024-04-27] MEDS: Menthol/Lanolin/Calamine/Znox 113 GM Tube 1 APPLIC TOPICAL ×2 (08:16→20:24)
[2024-04-27 10:00] VITALS: BP 116/84; PULSE 63; RESP 16; TEMP 36.2; O2SAT 99
--- NOTE | 2024-04-27 16:06 | NURSING ---
Patient up out of bed and walked in anguiano with this nurse at this time.
[2024-04-27] MEDS: Atorvastatin Calcium 40 MG Tablet PO (20:27)
[2024-04-28] MEDS: Ensure Plus High Protein 120 ML LIQUID PO ×4 (05:28→21:01)
[2024-04-28] MEDS: Acetaminophen 500 MG Tablet 1000 MG PO ×3 (05:29→21:02)
[2024-04-28] MEDS: Levothyroxine 75 MCG Tablet PO (05:29)
--- NOTE | 2024-04-28 08:00 | NURSING ---
NG tube placed, pt tolerated well. Xray ordered for placement.
[2024-04-28] MEDS: Amiodarone 200 MG Tablet PO ×2 (08:27→21:03)
[2024-04-28] MEDS: Amox/Clavulanate 500 MG Tablet PO ×2 (08:27→17:45)
[2024-04-28] MEDS: Calcium Carbonate 500 MG Tablet PO ×2 (08:27→17:45)
[2024-04-28] MEDS: Losartan Potassium 100 MG Tablet PO (08:28)
[2024-04-28] MEDS: DAKIN'S SOL HALF STRENGTH (=0.25%) TOPICAL ×2 (08:28→21:04)
[2024-04-28] MEDS: APIXABAN 5 MG TABLET PO ×2 (08:28→21:03)
[2024-04-28] MEDS: Isosorbide Mononitrate 60 MG Tablet PO (08:28)
[2024-04-28 08:29] VITALS: BP 140/74; PULSE 56
[2024-04-28] MEDS: Potassium Chloride Oral Tablet 20 MEQ PO ×2 (08:29→21:03)
[2024-04-28] MEDS: Clopidogrel Bisulfate 75 MG Tablet PO (08:29)
[2024-04-28] MEDS: Metoprolol(XL)Succ 25 MG Tablet PO (08:29)
[2024-04-28] MEDS: Senna/Docusate Sodium 1 Tablet PO ×2 (08:29→21:02)
[2024-04-28] MEDS: Menthol/Lanolin/Calamine/Znox 113 GM Tube 1 APPLIC TOPICAL ×2 (08:35→21:04)
[2024-04-28 10:00] VITALS: BP 140/74; PULSE 56; RESP 16; TEMP 36.3; O2SAT 98
[2024-04-28 10:28] LABS: Albumin, Serum 3.4 g/dL (3.4-4.8)
--- NOTE | 2024-04-28 11:43 | CASEMGMT ---
Addendum entered by Claudine Garcia 04/29/24 13:10: Hospice stated they need to proceed with their typical admissions process, meeting with family, etc, prior to determining if they can assist with then needed wound care. SW accepted and hospice to contact the nephew to schedule a meeting. - SW left detailed VM with son informing him of above, in addition to therapy beginning on 05/06 to decrease sessions, pending pt's DC date. SW will continue to follow. Addendum entered by Claudine Garcia 04/29/24 09:45: SW sent referral to [facility] via secure email with wound care request. Will await outcome. Original Note: Social Work SW corresponded via email with Irwin and Barrera at [facility] and [facility], respectively, to follow up on family's request for pt to DC to [facility] with hospice. Irwin confirmed pt would admit to [facility] memory care unit, but stated the hospice company needs to ensure they can provide twice daily wound care as their nurse's cannot. SW to contact [facility] to inquire. Claudine GARCIAW
[2024-04-28] MEDS: LORazepam 0.5 MG Tablet PO (21:02)
[2024-04-28] MEDS: Atorvastatin Calcium 40 MG Tablet PO (21:02)
[2024-04-28 21:10] VITALS: BP 162/73; PULSE 55
[2024-04-29 05:07] LABS: Prealbumin 21 mg/dL (9-32)
[2024-04-29] MEDS: Levothyroxine 75 MCG Tablet PO (06:26)
[2024-04-29] MEDS: Acetaminophen 500 MG Tablet 1000 MG PO ×3 (06:26→20:12)
[2024-04-29] MEDS: Ensure Plus High Protein 120 ML LIQUID PO ×4 (06:26→20:11)
[2024-04-29 09:08] VITALS: BMI 18.1
[2024-04-29 09:16] VITALS: BP 98/48; PULSE 55; RESP 16; TEMP 36.8; O2SAT 100
[2024-04-29] MEDS: Amox/Clavulanate 500 MG Tablet PO ×2 (09:18→16:53)
[2024-04-29] MEDS: Calcium Carbonate 500 MG Tablet PO ×2 (09:18→16:53)
[2024-04-29] MEDS: APIXABAN 5 MG TABLET PO ×2 (09:19→20:14)
[2024-04-29] MEDS: Potassium Chloride Oral Tablet 20 MEQ PO ×2 (09:19→20:15)
[2024-04-29] MEDS: Senna/Docusate Sodium 1 Tablet PO ×2 (09:19→20:15)
[2024-04-29] MEDS: Clopidogrel Bisulfate 75 MG Tablet PO (09:19)
[2024-04-29] MEDS: Menthol/Lanolin/Calamine/Znox 113 GM Tube 1 APPLIC TOPICAL ×2 (09:20→19:50)
[2024-04-29 11:28] VITALS: BP 144/68; PULSE 56
[2024-04-29] MEDS: Metoprolol(XL)Succ 25 MG Tablet PO (11:28)
[2024-04-29] MEDS: Amiodarone 200 MG Tablet PO ×2 (11:28→20:16)
[2024-04-29] MEDS: Losartan Potassium 100 MG Tablet PO (11:28)
[2024-04-29] MEDS: Isosorbide Mononitrate 60 MG Tablet PO (11:28)
[2024-04-29] MEDS: DAKIN'S SOL HALF STRENGTH (=0.25%) TOPICAL ×2 (12:24→19:49)
[2024-04-29 12:32] VITALS: PULSE 56; RESP 16; O2SAT 97
--- NOTE | 2024-04-29 13:51 | WOUNDNOTE ---
wound photo: right hip
--- NOTE | 2024-04-29 13:52 | WOUNDNOTE ---
wound photo: mid back
--- NOTE | 2024-04-29 13:53 | WOUNDNOTE ---
wound photo: right lateral foot
--- NOTE | 2024-04-29 13:53 | WOUNDNOTE ---
skin photo: left medial ankle
--- NOTE | 2024-04-29 13:54 | WOUNDNOTE ---
skin photo: left lateral ankle/heel
--- NOTE | 2024-04-29 14:26 | WOUNDNOTE ---
Called and talked with pt's nephew Kuldip. informed Kuldip that the wound to the right hip is slowly improving. Kuldip states concern that the wound was not cultured on admission. discussed that the wound did not appear to be infected and originally appeared to be superficial. explained how pressure injuries can evolve over time and the deeper tissues can be damaged and not even know it until it evolves. explained that the wound was cultured ones it became deeper and pt is on an antibiotic now to cover the bacteria. wound dimensions continue to improve. appreciative of call and aware to call of further questions or concerns arise.
[2024-04-29] MEDS: Atorvastatin Calcium 40 MG Tablet PO (20:16)
[2024-04-30 05:51] LABS: Absolute Lymphocyte Count 1.77 X10^3/uL (0.83-4.51); Absolute Neutrophil Count 5.1 X10^3/uL (2.0-7.7); Basophil# 0.08 X10^3/uL; Basophil% 0.9 % (0-1); Eosinophil# 0.69 X10^3/uL; Eosinophils% 7.9 % (0-5); Hematocrit 37.8 % (37-47); Hemoglobin 12.1 g/dL (12.0-15.0); Lymphocyte # 1.77 X10^3/ul (0.83-4.51); Lymphocyte % 20.3 % (19-41); Mean Corpuscular Hgb 26.2 pg (27.0-32.0); Mean Corpuscular Volume 81.8 fL (81-99); Mean Platelet Vol. 9.7 fl (6.2-12.0); Monocyte# 0.92 X10^3/uL; Monocyte% 10.6 % (0-10); NRBC Flagged by Analyzer 0 % (0-5); Neutrophil # 5.08 X10^3/uL (2.7-7.7); Neutrophil % 58.5 % (47-70); Platelet Count 327 K/mm3 (150-450); RBC Distribution Width SD 59.2 fl (35.1-43.9); Red Blood Count 4.62 M/mm3 (4.2-5.4); White Blood Count 8.7 K/mm3 (4.4-11.0)
[2024-04-30] MEDS: Ensure Plus High Protein 120 ML LIQUID PO ×4 (05:52→21:42)
[2024-04-30] MEDS: Levothyroxine 75 MCG Tablet PO (05:52)
[2024-04-30] MEDS: Acetaminophen 500 MG Tablet 1000 MG PO ×3 (05:52→21:39)
[2024-04-30 06:08] LABS: Anion Gap 11 (5-15); BUN 29 mg/dL (4-19); Calcium,Total 8.8 mg/dL (7.6-11.0); Carbon Dioxide 21.3 mmol/L (21.0-32.0); Chloride 104 mmol/L (98-108); Creatinine, Serum 0.73 mg/dL (0.70-1.20); EST Glomerular Filtration Rate 82 (>60); Estimated Creatinine Clearance 35.95 ml/min (50-250); Glucose 85 mg/dL (70-99); Potassium 4.1 mmol/L (3.3-5.1); Sodium Level 136 mmol/L (133-145)
--- NOTE | 2024-04-30 09:26 | WOUNDNOTE ---
Pt is scheduled for a shower later this am. Did not change dressing to the right hip at this time. dressing will be changed after shower by nursing. will continue to monitor.
[2024-04-30 10:16] VITALS: BP 137/68; PULSE 60; RESP 16; TEMP 37.2; O2SAT 99
[2024-04-30] MEDS: Amiodarone 200 MG Tablet PO ×2 (10:20→21:38)
[2024-04-30] MEDS: Amox/Clavulanate 500 MG Tablet PO ×2 (10:20→16:48)
[2024-04-30] MEDS: Calcium Carbonate 500 MG Tablet PO ×2 (10:20→16:48)
[2024-04-30 10:21] VITALS: PULSE 60
[2024-04-30] MEDS: APIXABAN 5 MG TABLET PO ×2 (10:21→21:39)
[2024-04-30] MEDS: Potassium Chloride Oral Tablet 20 MEQ PO ×2 (10:21→21:39)
[2024-04-30] MEDS: Losartan Potassium 100 MG Tablet PO (10:21)
[2024-04-30] MEDS: Metoprolol(XL)Succ 25 MG Tablet PO (10:21)
[2024-04-30] MEDS: Clopidogrel Bisulfate 75 MG Tablet PO (10:21)
[2024-04-30] MEDS: Isosorbide Mononitrate 60 MG Tablet PO (10:21)
[2024-04-30] MEDS: DAKIN'S SOL HALF STRENGTH (=0.25%) TOPICAL ×2 (10:27→21:40)
[2024-04-30] MEDS: Menthol/Lanolin/Calamine/Znox 113 GM Tube 1 APPLIC TOPICAL ×2 (10:27→21:40)
[2024-04-30 10:39] VITALS: PULSE 60; RESP 16
--- NOTE | 2024-04-30 13:09 | CASEMGMT ---
Social Work [facility] nurse, Pat, met with pt and family at 0830. Pt is appropriate for hospice and can provide wound care. Though, explained once the hospice wound nurse assesses the wound, the nurse will make the decision on how often the wound needs care and provide visits. EMIGDIO to update [facility] to notify and offered for DON to speak with hospice about specifics. Pat agreed. EMIGDIO confirmed there is not anticipate DC date at this time. - EMIGDIO updated Irwin at [facility] via secure email on above. Irwin to have DON contact hospice. EMIGDIO will continue to follow. Claudine Garcia MSW BRIDGE BUILDER
[2024-04-30] MEDS: Atorvastatin Calcium 40 MG Tablet PO (21:38)
[2024-04-30] MEDS: Senna/Docusate Sodium 1 Tablet PO (21:38)
[2024-04-30 21:46] VITALS: BP 148/70; PULSE 59
[2024-05-01] MEDS: Levothyroxine 75 MCG Tablet PO (05:40)
[2024-05-01] MEDS: Ensure Plus High Protein 120 ML LIQUID PO ×4 (05:40→19:55)
[2024-05-01] MEDS: Acetaminophen 500 MG Tablet 1000 MG PO ×3 (05:41→20:01)
[2024-05-01 08:17] VITALS: BP 119/70; PULSE 56; RESP 17; TEMP 36.3; O2SAT 99
[2024-05-01] MEDS: Calcium Carbonate 500 MG Tablet PO ×2 (08:18→16:42)
[2024-05-01 08:19] VITALS: BP 119/70; PULSE 56
[2024-05-01] MEDS: Amox/Clavulanate 500 MG Tablet PO ×2 (08:19→16:42)
[2024-05-01] MEDS: APIXABAN 5 MG TABLET PO ×2 (08:19→20:01)
[2024-05-01] MEDS: Clopidogrel Bisulfate 75 MG Tablet PO (08:19)
[2024-05-01] MEDS: Losartan Potassium 100 MG Tablet PO (08:19)
[2024-05-01] MEDS: Senna/Docusate Sodium 1 Tablet PO ×2 (08:19→20:01)
[2024-05-01] MEDS: Menthol/Lanolin/Calamine/Znox 113 GM Tube 1 APPLIC TOPICAL ×2 (08:19→19:57)
[2024-05-01] MEDS: Isosorbide Mononitrate 60 MG Tablet PO (08:19)
[2024-05-01] MEDS: Metoprolol(XL)Succ 25 MG Tablet PO (08:19)
[2024-05-01] MEDS: Potassium Chloride Oral Tablet 20 MEQ PO ×2 (08:19→20:00)
[2024-05-01] MEDS: Amiodarone 200 MG Tablet PO ×2 (08:19→20:01)
[2024-05-01] MEDS: DAKIN'S SOL HALF STRENGTH (=0.25%) TOPICAL ×2 (08:20→19:55)
--- NOTE | 2024-05-01 08:31 | PCM.PN.SRG ---
Subjective Subjective Doing well in the transitional care unit. Reports excellent dressing changes and good wound care Objective Data Objective Data Vital Signs: Vital Signs Temp Pulse Resp BP Pulse Ox O2 Del Method O2 Flow Rate 98.9 F 56 L 16 119/70 99 Room Air 94 04/30/24 10:16 05/01/24 08:19 04/30/24 10:39 05/01/24 08:19 04/30/24 10:16 04/30/24 10:39 04/14/24 16:50 Oxygen Flow Rate (L/min) 94 Oxygen Delivery Method Room Air Weight: 95 lb 14.4 oz Body Mass Index (BMI) 18.1 Intake & Output: Intake and Output for Last 24 Hours 04/29/24 04/30/24 05/01/24 23:59 23:59 23:59 Intake Total 360 / 360 530 / 530 Balance 360 / 360 530 / 530 Medical Nutrition Assessment Dietitian: Malnutrition Criteria Met Start: 04/09/24 12:04 Freq: Status: Active Protocol: Document 04/23/24 15:05 [facility] (Rec: 04/23/24 15:05 [facility] [id number]) Nutrition Malnutrition Evidence of Yes Malnutrition Exists Evidenced By Weight Loss (Severe),Physical Changes (Moderate) Intake Problem Increased Nutrient Needs (specify) Etiology protein r/t skin breakdown Signs/Symptoms as evidenced by PI to midback, R hip, R foot Status Active Problem Inadequate Oral Intake Status Inactive Problem Clinical Problem Biting/Chewing Difficulty Etiology related to loose fitting top dentures Signs/Symptoms as evidenced by need for modified consistency diet to help w/ ease of eating per nsg Status Active Problem Acute Disease or Injury Related Malnutrition Etiology related to inadequate energy intake Signs/Symptoms as evidenced by 6.2% unintended wt loss since adm, meeting ~50% of est nutritional needs and fat/muscle loss in face/orbitals/clavicle region also w/ multiple PI midback and R hip/R foot Status Active Problem Recommendation Dietitian Continue liberal regular diet d/t signs and symptoms of Recommendations/ malnutrition Changes Continue to provide fortified foods at meals as able for increased nutrition if consumed. Continue Ari bid w/ meals and 4 oz ensure plus high protein 4x/day w/ medpass for increased nutrition if consumed. Lab / Micro Data 04/30/24 05:04 04/30/24 05:04 Micro: Microbiology 04/22/24 18:30 Wound - Hip Gram Stain - Final 04/22/24 18:30 Wound - Hip Wound Culture - Final Proteus mirabilis 04/16/24 05:00 Nasal Secretion SARS-CoV-2 Antigen (Rapid) - Final 04/11/24 20:15 Urine Catheter - Catheter Urine Culture - Final Culture exhibits no growth. 04/12/24 20:00 Mucosa - Nasopharyngeal Respiratory Panel (PCR) - Final 04/12/24 09:40 Nasal Secretion SARS-CoV-2 Antigen (Rapid) - Final 04/09/24 05:00 Nasal Secretion SARS-CoV-2 Antigen (Rapid) - Final Physical Exam Narrative Right trochanteric pressure injury examined. Stage III ulcer no fluid collections healthy granulation tissue at the base Approximately 4 x 4 cm with minimal tunneling Assessment & Plan Assessment/Plan (1) Trochanteric ulcer of right hip: PLAN: Improvement of the wound with good dressing changes and pressure offloading. It will likely granulate and heal with dressing changes and pressure offloading. Recommend pressure offloading with every 2 hours turns and a pressure offloading bed as tolerated. She should not lay on this ulcer at all Recommend Dakin's wet to dry dressings twice daily and plastic surgery will monitor and debride as needed. Recommend weekly nutrition labs,. Anticipate outpatient follow-up in the wound care center. Please contact plastic surgery on the date of discharge for follow-up planning Charges/Coding Visit Charges Inpatient E&M: [id number] [facility] L1
[2024-05-01 10:00] VITALS: PULSE 56; O2SAT 99
[2024-05-01] MEDS: Atorvastatin Calcium 40 MG Tablet PO (20:01)
[2024-05-01 20:06] VITALS: BP 118/58; PULSE 56
[2024-05-02] MEDS: Levothyroxine 75 MCG Tablet PO (05:33)
[2024-05-02] MEDS: Acetaminophen 500 MG Tablet 1000 MG PO ×3 (05:33→20:38)
[2024-05-02] MEDS: Ensure Plus High Protein 120 ML LIQUID PO ×4 (05:33→20:41)
[2024-05-02 09:09] VITALS: BP 145/61; PULSE 56; RESP 16; TEMP 36.8; O2SAT 97
[2024-05-02] MEDS: Amox/Clavulanate 500 MG Tablet PO (09:12)
[2024-05-02] MEDS: Isosorbide Mononitrate 60 MG Tablet PO (09:12)
[2024-05-02] MEDS: Calcium Carbonate 500 MG Tablet PO ×2 (09:12→17:07)
[2024-05-02] MEDS: Amiodarone 200 MG Tablet PO ×2 (09:12→20:37)
[2024-05-02 09:13] VITALS: PULSE 56
[2024-05-02] MEDS: Metoprolol(XL)Succ 25 MG Tablet PO (09:13)
[2024-05-02] MEDS: Clopidogrel Bisulfate 75 MG Tablet PO (09:13)
[2024-05-02] MEDS: APIXABAN 5 MG TABLET PO ×2 (09:13→20:37)
[2024-05-02] MEDS: Losartan Potassium 100 MG Tablet PO (09:13)
[2024-05-02] MEDS: Potassium Chloride Oral Tablet 20 MEQ PO ×2 (09:13→20:37)
[2024-05-02] MEDS: DAKIN'S SOL HALF STRENGTH (=0.25%) TOPICAL ×2 (09:13→20:39)
[2024-05-02] MEDS: Senna/Docusate Sodium 1 Tablet PO ×2 (09:13→20:41)
[2024-05-02] MEDS: Menthol/Lanolin/Calamine/Znox 113 GM Tube 1 APPLIC TOPICAL ×2 (09:14→20:39)
[2024-05-02 09:32] VITALS: PULSE 60; RESP 15
--- NOTE | 2024-05-02 10:19 | WOUNDNOTE ---
Nursing had just changed the dressing to the right hip. left dressing in place. did assess the back and right lateral foot when nursing changed the dressings. all are improving.
[2024-05-02] MEDS: Atorvastatin Calcium 40 MG Tablet PO (20:37)
[2024-05-02 20:45] VITALS: BP 120/54; PULSE 56
[2024-05-03 03:59] VITALS: PULSE 56; RESP 16; O2SAT 96
[2024-05-03] MEDS: Acetaminophen 500 MG Tablet 1000 MG PO ×3 (05:56→22:54)
[2024-05-03] MEDS: Levothyroxine 75 MCG Tablet PO (05:56)
[2024-05-03] MEDS: Ensure Plus High Protein 120 ML LIQUID PO ×4 (05:57→22:59)
[2024-05-03] MEDS: Calcium Carbonate 500 MG Tablet PO ×2 (08:38→16:30)
[2024-05-03] MEDS: Menthol/Lanolin/Calamine/Znox 113 GM Tube 1 APPLIC TOPICAL ×2 (08:39→22:52)
[2024-05-03 08:43] VITALS: PULSE 56
[2024-05-03] MEDS: Clopidogrel Bisulfate 75 MG Tablet PO (08:43)
[2024-05-03] MEDS: Potassium Chloride Oral Tablet 20 MEQ PO ×2 (08:43→22:55)
[2024-05-03] MEDS: Losartan Potassium 100 MG Tablet PO (08:43)
[2024-05-03] MEDS: APIXABAN 5 MG TABLET PO ×2 (08:43→22:51)
[2024-05-03] MEDS: Isosorbide Mononitrate 60 MG Tablet PO (08:43)
[2024-05-03] MEDS: Metoprolol(XL)Succ 25 MG Tablet PO (08:43)
[2024-05-03] MEDS: Amiodarone 200 MG Tablet PO ×2 (08:43→23:02)
[2024-05-03] MEDS: Senna/Docusate Sodium 1 Tablet PO ×2 (08:43→22:59)
[2024-05-03 10:31] VITALS: BP 138/67; PULSE 57; RESP 16; TEMP 36.4; O2SAT 98
[2024-05-03] MEDS: DAKIN'S SOL HALF STRENGTH (=0.25%) TOPICAL ×2 (12:41→22:53)
--- NOTE | 2024-05-03 12:42 | NURSING ---
Dressing changed to right hip per order at this time. Resident tolerated well.
[2024-05-03] MEDS: Atorvastatin Calcium 40 MG Tablet PO (22:55)
--- NOTE | 2024-05-03 23:15 | NURSING ---
Dressing changes completed to mid back and rt hip/trochanter wound. Wound bed to mid back is 100% slough. Scant amount of serous drainage. Site cleansed w/ NS and mepliex applied. Hip/trochanter wound bed is 30% slough, 70% granulation tissue. Small amount of serosanguinous drainage noted. Cleansed wound bed w/ NS, pat dry, applied Dakins moistened gauze to wound bed, placed ABD over wound, and secured w/ paper tape. Assessed rt lateral foot wound, mepliex dated 05/02. Wound bed w/ moist, necrotic tissue, scant amount of serous drainage. Mepliex replaced. No redness, warmth, or swelling to periwound skin. Resident tolerated dressing changes well. Will continue to monitor.
[2024-05-04] MEDS: Ensure Plus High Protein 120 ML LIQUID PO ×4 (05:52→21:43)
[2024-05-04] MEDS: Levothyroxine 75 MCG Tablet PO (05:53)
[2024-05-04] MEDS: Acetaminophen 500 MG Tablet 1000 MG PO ×3 (05:54→21:41)
[2024-05-04] MEDS: Calcium Carbonate 500 MG Tablet PO ×2 (09:08→17:26)
[2024-05-04] MEDS: Menthol/Lanolin/Calamine/Znox 113 GM Tube 1 APPLIC TOPICAL ×2 (09:08→21:41)
[2024-05-04 09:13] VITALS: PULSE 55
[2024-05-04] MEDS: Isosorbide Mononitrate 60 MG Tablet PO (09:13)
[2024-05-04] MEDS: Clopidogrel Bisulfate 75 MG Tablet PO (09:13)
[2024-05-04] MEDS: Amiodarone 200 MG Tablet PO ×2 (09:13→21:42)
[2024-05-04] MEDS: Metoprolol(XL)Succ 25 MG Tablet PO (09:13)
[2024-05-04] MEDS: Potassium Chloride Oral Tablet 20 MEQ PO ×2 (09:13→21:42)
[2024-05-04] MEDS: Losartan Potassium 100 MG Tablet PO (09:13)
[2024-05-04] MEDS: Senna/Docusate Sodium 1 Tablet PO ×2 (09:13→21:41)
[2024-05-04] MEDS: APIXABAN 5 MG TABLET PO ×2 (09:13→21:42)
[2024-05-04 10:22] VITALS: BP 123/69; PULSE 55; RESP 18; TEMP 36.3; O2SAT 97
[2024-05-04] MEDS: DAKIN'S SOL HALF STRENGTH (=0.25%) TOPICAL ×2 (11:19→21:46)
[2024-05-04] MEDS: Atorvastatin Calcium 40 MG Tablet PO (21:42)
[2024-05-05] MEDS: Levothyroxine 75 MCG Tablet PO (05:23)
[2024-05-05] MEDS: Acetaminophen 500 MG Tablet 1000 MG PO ×3 (05:23→20:35)
[2024-05-05] MEDS: Ensure Plus High Protein 120 ML LIQUID PO ×4 (05:23→20:34)
[2024-05-05 07:19] LABS: Albumin, Serum 3.6 g/dL (3.4-4.8)
--- NOTE | 2024-05-05 07:53 | WOUNDNOTE ---
wound photo: right hip
[2024-05-05 08:24] VITALS: BP 165/87; PULSE 60; RESP 16; TEMP 36.2; O2SAT 98
[2024-05-05] MEDS: Calcium Carbonate 500 MG Tablet PO ×2 (08:26→17:37)
[2024-05-05] MEDS: Menthol/Lanolin/Calamine/Znox 113 GM Tube 1 APPLIC TOPICAL ×2 (08:29→20:38)
[2024-05-05] MEDS: Amiodarone 200 MG Tablet PO ×2 (08:31→20:37)
[2024-05-05] MEDS: DAKIN'S SOL HALF STRENGTH (=0.25%) TOPICAL ×2 (08:32→20:38)
[2024-05-05] MEDS: APIXABAN 5 MG TABLET PO ×2 (08:32→20:35)
[2024-05-05] MEDS: Losartan Potassium 100 MG Tablet PO (08:32)
[2024-05-05 08:33] VITALS: BP 165/87; PULSE 60
[2024-05-05] MEDS: Metoprolol(XL)Succ 25 MG Tablet PO (08:33)
[2024-05-05] MEDS: Isosorbide Mononitrate 60 MG Tablet PO (08:33)
[2024-05-05] MEDS: Clopidogrel Bisulfate 75 MG Tablet PO (08:33)
[2024-05-05] MEDS: Senna/Docusate Sodium 1 Tablet PO ×2 (08:33→20:36)
[2024-05-05] MEDS: Potassium Chloride Oral Tablet 20 MEQ PO ×2 (08:33→20:37)
[2024-05-05 10:00] VITALS: PULSE 60; RESP 16; O2SAT 98
--- NOTE | 2024-05-05 13:05 | PN.SURG_ITS ---
Subjective Subjective Doing well. Reports that she is not laying on the right side because it hurts, so she's pressure offloading the right trochanteric wound well and consistency. Objective Data Objective Data Vital Signs: Vital Signs Temp Pulse Resp BP Pulse Ox O2 Del Method O2 Flow Rate 97.1 F L 60 16 165/87 H 98 Room Air 94 05/05/24 08:24 05/05/24 08:33 05/05/24 08:24 05/05/24 08:33 05/05/24 08:24 05/05/24 08:24 04/14/24 16:50 Oxygen Flow Rate (L/min) 94 Oxygen Delivery Method Room Air Weight: 95 lb 14.4 oz Body Mass Index (BMI) 18.1 Intake & Output: Intake and Output for Last 24 Hours 05/03/24 05/05/24 05/05/24 23:59 00:59 23:59 Intake Total 1300 / 1300 540 / 540 360 / 360 Balance 1300 / 1300 540 / 540 360 / 360 Medical Nutrition Assessment Dietitian: Malnutrition Criteria Met Start: 04/09/24 12:04 Freq: Status: Active Protocol: Document 04/23/24 15:05 SLA (Rec: 04/23/24 15:05 SLA [email or web address]) Nutrition Malnutrition Evidence of Yes Malnutrition Exists Evidenced By Weight Loss (Severe),Physical Changes (Moderate) Intake Problem Increased Nutrient Needs (specify) Etiology protein r/t skin breakdown Signs/Symptoms as evidenced by PI to midback, R hip, R foot Status Active Problem Inadequate Oral Intake Status Inactive Problem Clinical Problem Biting/Chewing Difficulty Etiology related to loose fitting top dentures Signs/Symptoms as evidenced by need for modified consistency diet to help w/ ease of eating per nsg Status Active Problem Acute Disease or Injury Related Malnutrition Etiology related to inadequate energy intake Signs/Symptoms as evidenced by 6.2% unintended wt loss since adm, meeting ~50% of est nutritional needs and fat/muscle loss in face/orbitals/clavicle region also w/ multiple PI midback and R hip/R foot Status Active Problem Recommendation Dietitian Continue liberal regular diet d/t signs and symptoms of Recommendations/ malnutrition Changes Continue to provide fortified foods at meals as able for increased nutrition if consumed. Continue Ari bid w/ meals and 4 oz ensure plus high protein 4x/day w/ medpass for increased nutrition if consumed. Lab / Micro Data 04/30/24 05:04 04/30/24 05:04 Labs: Laboratory Results - last 24 hr 05/05/24 05:19: Albumin 3.6 Micro: Microbiology 04/22/24 18:30 Wound - Hip Gram Stain - Final 04/22/24 18:30 Wound - Hip Wound Culture - Final Proteus mirabilis 04/16/24 05:00 Nasal Secretion SARS-CoV-2 Antigen (Rapid) - Final 04/11/24 20:15 Urine Catheter - Catheter Urine Culture - Final Culture exhibits no growth. 04/12/24 20:00 Mucosa - Nasopharyngeal Respiratory Panel (PCR) - Final 04/12/24 09:40 Nasal Secretion SARS-CoV-2 Antigen (Rapid) - Final 04/09/24 05:00 Nasal Secretion SARS-CoV-2 Antigen (Rapid) - Final Physical Exam Narrative Right trochanteric pressure injury examined again today. Stage III ulcer no fluid collections healthy granulation tissue at the base Approximately 4 x 4 cm with minimal tunneling Assessment & Plan Assessment/Plan (1) Trochanteric ulcer of right hip: PLAN: Improvement of the wound with good dressing changes and pressure offloading. It will likely granulate and heal with dressing changes and pressure offloading. Recommend pressure offloading with every 2 hours turns and a pressure offloading bed as tolerated. She should not lay on this ulcer at all Recommend Dakin's wet to dry dressings twice daily and plastic surgery will monitor and debride as needed. Recommend weekly nutrition labs and high protein diet. Anticipate outpatient follow-up in the wound care center. Please contact plastic surgery on the date of discharge for follow-up planning Charges/Coding Visit Charges Inpatient E&M: 38786 [facility] L1
--- NOTE | 2024-05-05 18:31 | NURSING ---
OPERATIONS ANALYST CALLED THIS NURSE TO ROOM STATING PT SCRATCHED OPEN HER DRESSING TO RT HIP WHILE ON TOILET AND IS BLEEDING. THIS NURSE TO ROOM AND ASKED PT WHAT HAPPENED,PT STATED I SCRATCHED THAT AREA CAUSED IT ITCHED AND DIDNT KNOW I HAD SOME THING THERE AND BOY DOSE IT HURT. EXPLAINED TO PT THAT SHE HAD A WOUND ON RT HIP WITH A DRESSING,PT STATED O OK I'M SORRY BOY DOSE THAT HURT. THIS NURSE CLEANED AREA UP AND APPLIED NEW DRESSING PER ORDER AND GOT PT BACK IN BED AND TURNED PT TO HER LEFT SIDE. HEELS UP AND ALARM ON. PT STATED THANK YOU. RN AWARE.
--- NOTE | 2024-05-05 19:39 | PN.TCU_ITS ---
Subjective Subjective Resident seen, examined for regulatory visit. She has no new problems, concerns, issues, complaints. We did discuss her discharge plans, I told her I agreed with her nephew Kuldip, she should discharge to [place]. Saima said she wanted to kill Kuldip, but I think she meant that metaphorically. I told her if she discharges home alone, she will most likely . Objective Data Objective Data Vital Signs: Vital Signs Temp Pulse Resp BP Pulse Ox O2 Del Method O2 Flow Rate 97.1 F L 60 16 165/87 H 98 Room Air 94 05/05/24 08:24 05/05/24 10:00 05/05/24 10:00 05/05/24 08:33 05/05/24 10:00 05/05/24 10:00 04/14/24 16:50 Oxygen Flow Rate (L/min) 94 Oxygen Delivery Method Room Air Weight: 43.5 kg Body Mass Index (BMI) 18.1 Intake & Output: Intake and Output for Last 24 Hours 05/03/24 05/05/24 05/05/24 23:59 00:59 23:59 Intake Total 1300 / 1300 540 / 540 720 / 720 Balance 1300 / 1300 540 / 540 720 / 720 Medical Nutrition Assessment Dietitian: Malnutrition Criteria Met Start: 04/09/24 12:04 Freq: Status: Active Protocol: Document 04/23/24 15:05 VIRAJ (Rec: 04/23/24 15:05 VIRAJ [email or web address]) Nutrition Malnutrition Evidence of Yes Malnutrition Exists Evidenced By Weight Loss (Severe),Physical Changes (Moderate) Intake Problem Increased Nutrient Needs (specify) Etiology protein r/t skin breakdown Signs/Symptoms as evidenced by PI to midback, R hip, R foot Status Active Problem Inadequate Oral Intake Status Inactive Problem Clinical Problem Biting/Chewing Difficulty Etiology related to loose fitting top dentures Signs/Symptoms as evidenced by need for modified consistency diet to help w/ ease of eating per nsg Status Active Problem Acute Disease or Injury Related Malnutrition Etiology related to inadequate energy intake Signs/Symptoms as evidenced by 6.2% unintended wt loss since adm, meeting ~50% of est nutritional needs and fat/muscle loss in face/orbitals/clavicle region also w/ multiple PI midback and R hip/R foot Status Active Problem Recommendation Dietitian Continue liberal regular diet d/t signs and symptoms of Recommendations/ malnutrition Changes Continue to provide fortified foods at meals as able for increased nutrition if consumed. Continue Ari bid w/ meals and 4 oz ensure plus high protein 4x/day w/ medpass for increased nutrition if consumed. Lab / Micro Data 04/30/24 05:04 04/30/24 05:04 Labs: Laboratory Results - last 24 hr 05/05/24 05:19: Albumin 3.6 Micro: Microbiology 04/22/24 18:30 Wound - Hip Gram Stain - Final 04/22/24 18:30 Wound - Hip Wound Culture - Final Proteus mirabilis 04/16/24 05:00 Nasal Secretion SARS-CoV-2 Antigen (Rapid) - Final 04/11/24 20:15 Urine Catheter - Catheter Urine Culture - Final Culture exhibits no growth. 04/12/24 20:00 Mucosa - Nasopharyngeal Respiratory Panel (PCR) - Final 04/12/24 09:40 Nasal Secretion SARS-CoV-2 Antigen (Rapid) - Final 04/09/24 05:00 Nasal Secretion SARS-CoV-2 Antigen (Rapid) - Final Physical Exam Const alert Constitutional Narrative: Drowsy, but arousable. General Appearance: cooperative HEENT normocephalic Eyes PERRL and EOMs intact bilaterally Neck supple, no JVD and no carotid bruits Resp normal respiratory effort, normal air movement and clear to auscultation bilaterally Cardio regular rate and regular rhythm GI normal to inspection, nondistended, normoactive bowel sounds, non-tender and non-distended Extremity normal capillary refill General Extremity: Negative for edema Skin Skin Narrative: per wound nurse. Wound Narrative: I reviewed right hip pressure ulcer photo. The base appears beefy red, clean. No sign of infection. Psych affect normal Appearance: appropriate Assessment & Plan Assessment/Plan (1) Debility: (2) Unresponsive episode: (3) Ventricular tachycardia: (4) Rhabdomyolysis: (5) Urinary tract infection: (6) Essential hypertension: (7) Hyperlipidemia: QUALIFIERS: Hyperlipidemia type: unspecified Qualified Code(s): E 78.5 - Hyperlipidemia, unspecified (8) Coronary artery disease: (9) Atrial fibrillation: QUALIFIERS: Atrial fibrillation type: paroxysmal Qualified Code(s): I48.0 - Paroxysmal atrial fibrillation (10) Hypothyroidism: (11) Appetite loss: PLAN: Plan 83 year old female with below past medical history hospitalized for unresponsive episode 2/2 ventricular tachycardia, complicated by rhabdomyolysis, urinary tract infection, admitted to TCU with debility, here for rehabilitation, strengthening, prior to discharge home. * Debility - PT/OT. * Pain - Tylenol 1000mg q8. * Bowel - senna/colace 1 tablet bid, Magnesium citrate 300mL po x 1 prn.. * Adult immunization - Administer pneumonia vaccine, covid vaccine, flu vaccine as appropriate. * DVT prophylaxis - on Eliquis. * Atrial fibrillation - Metoprolol succinate 25mg daily, Amiodarone 200mg bid, Eliquis 5mg bid. * Hyperlipidemia - Atorvastatin 40mg qhs. * Coronary artery disease - Metoprolol succinate 25mg daily, Losartan 100mg daily, Isosorbide mn 60mg daily, Plavix 75mg daily, NTG 0.4mg sl daily prn. * Nutrition - Ensure Plus 120mL 4x/day. * Hypothyroidism - Levothyroxine 75mcg daily. * Skin irritation - Calmoseptine topical bid. * Hypokalemia - KCL 20meq bid. * Indigestion - Calcium carbonate 500mg bidcm. * Anxiety/restlessness/sleep - Lorazepam 0.5mg q4 prn, only after nonpharmacologic interventions have failed. * Right hip pressure ulcer - Dakins bid, appreciate Liliam Wilson, appreciate Dr. Gm Freeman.
[2024-05-05] MEDS: Atorvastatin Calcium 40 MG Tablet PO (20:37)
[2024-05-05 20:44] VITALS: BP 135/67; PULSE 56
[2024-05-06 05:07] LABS: Prealbumin 22 mg/dL (9-32)
[2024-05-06] MEDS: Ensure Plus High Protein 120 ML LIQUID PO ×4 (05:28→22:06)
[2024-05-06] MEDS: Levothyroxine 75 MCG Tablet PO (05:28)
[2024-05-06] MEDS: Acetaminophen 500 MG Tablet 1000 MG PO ×3 (05:28→22:08)
[2024-05-06 09:25] VITALS: BP 170/89; PULSE 61; RESP 16; TEMP 36.5; O2SAT 99
[2024-05-06 09:31] VITALS: BP 168/74
[2024-05-06 09:33] VITALS: PULSE 61
[2024-05-06] MEDS: Metoprolol(XL)Succ 25 MG Tablet PO (09:33)
[2024-05-06] MEDS: Amiodarone 200 MG Tablet PO ×2 (09:33→22:07)
[2024-05-06] MEDS: Calcium Carbonate 500 MG Tablet PO ×2 (09:33→18:11)
[2024-05-06] MEDS: APIXABAN 5 MG TABLET PO ×2 (09:33→22:07)
[2024-05-06] MEDS: Isosorbide Mononitrate 60 MG Tablet PO (09:33)
[2024-05-06] MEDS: Losartan Potassium 100 MG Tablet PO (09:33)
[2024-05-06] MEDS: Senna/Docusate Sodium 1 Tablet PO ×2 (09:34→22:07)
[2024-05-06] MEDS: Menthol/Lanolin/Calamine/Znox 113 GM Tube 1 APPLIC TOPICAL ×2 (09:34→22:10)
[2024-05-06] MEDS: Clopidogrel Bisulfate 75 MG Tablet PO (09:34)
[2024-05-06] MEDS: DAKIN'S SOL HALF STRENGTH (=0.25%) TOPICAL ×2 (09:34→22:09)
[2024-05-06] MEDS: Potassium Chloride Oral Tablet 20 MEQ PO ×2 (09:34→22:07)
[2024-05-06 09:39] VITALS: PULSE 61; RESP 16; O2SAT 99
[2024-05-06 13:00] VITALS: BMI 17.9
--- NOTE | 2024-05-06 14:35 | CASEMGMT ---
Social Work SW left VM with nephew to discuss setting DC date. Claudine Garcia DISTRIBUTION TECHNICIAN RIGGER UP
[2024-05-06] MEDS: Atorvastatin Calcium 40 MG Tablet PO (22:07)
[2024-05-06 22:13] VITALS: BP 137/72; PULSE 57
[2024-05-07 03:17] VITALS: PULSE 58; RESP 16
[2024-05-07] MEDS: Levothyroxine 75 MCG Tablet PO (05:24)
[2024-05-07] MEDS: Ensure Plus High Protein 120 ML LIQUID PO ×4 (05:24→20:18)
[2024-05-07] MEDS: Acetaminophen 500 MG Tablet 1000 MG PO ×3 (05:25→20:21)
[2024-05-07 05:59] LABS: Absolute Lymphocyte Count 1.73 X10^3/uL (0.83-4.51); Absolute Neutrophil Count 4.5 X10^3/uL (2.0-7.7); Basophil# 0.05 X10^3/uL; Basophil% 0.7 % (0-1); Eosinophil# 0.18 X10^3/uL; Eosinophils% 2.5 % (0-5); Hematocrit 37.2 % (37-47); Hemoglobin 11.9 g/dL (12.0-15.0); Lymphocyte # 1.73 X10^3/ul (0.83-4.51); Lymphocyte % 23.8 % (19-41); Mean Corpuscular Hgb 26.3 pg (27.0-32.0); Mean Corpuscular Volume 82.1 fL (81-99); Mean Platelet Vol. 10.1 fl (6.2-12.0); Monocyte# 0.73 X10^3/uL; NRBC Flagged by Analyzer 0 % (0-5); Neutrophil # 4.53 X10^3/uL (2.7-7.7); Neutrophil % 62.3 % (47-70); POSITIVE MORPHOLOGY YES; Platelet Count 250 K/mm3 (150-450); RBC Distribution Width CV 20.5 % (11.6-14.6); RBC Distribution Width SD 61.3 fl (35.1-43.9); Red Blood Count 4.53 M/mm3 (4.2-5.4); White Blood Count 7.3 K/mm3 (4.4-11.0)
[2024-05-07 06:04] LABS: Differential Indicated SCAN CRITERIA MET
[2024-05-07 06:37] LABS: Anion Gap 11 (5-15); BUN 43 mg/dL (4-19); BUN/Creat Ratio 59.1 RATIO (10-20); Calcium,Total 8.8 mg/dL (7.6-11.0); Carbon Dioxide 22.6 mmol/L (21.0-32.0); Chloride 104 mmol/L (98-108); Creatinine, Serum 0.73 mg/dL (0.70-1.20); EST Glomerular Filtration Rate 81 (>60); Estimated Creatinine Clearance 35.72 ml/min (50-250); Glucose 88 mg/dL (70-99); Potassium 4.3 mmol/L (3.3-5.1); Sodium Level 137 mmol/L (133-145)
[2024-05-07 07:17] LABS: Anisocytosis 1+
[2024-05-07] MEDS: Menthol/Lanolin/Calamine/Znox 113 GM Tube 1 APPLIC TOPICAL ×2 (08:51→20:22)
[2024-05-07] MEDS: Calcium Carbonate 500 MG Tablet PO ×2 (08:51→17:11)
[2024-05-07] MEDS: Isosorbide Mononitrate 60 MG Tablet PO (08:52)
[2024-05-07] MEDS: APIXABAN 5 MG TABLET PO ×2 (08:52→20:20)
[2024-05-07] MEDS: Amiodarone 200 MG Tablet PO ×2 (08:52→20:20)
[2024-05-07] MEDS: Losartan Potassium 100 MG Tablet PO (08:52)
[2024-05-07 08:53] VITALS: BP 151/73; PULSE 56
[2024-05-07] MEDS: Metoprolol(XL)Succ 25 MG Tablet PO (08:53)
[2024-05-07] MEDS: Senna/Docusate Sodium 1 Tablet PO ×2 (08:53→20:21)
[2024-05-07] MEDS: Clopidogrel Bisulfate 75 MG Tablet PO (08:53)
[2024-05-07] MEDS: Potassium Chloride Oral Tablet 20 MEQ PO ×2 (08:53→20:20)
[2024-05-07 09:00] VITALS: BP 151/73; PULSE 56; RESP 16; TEMP 36.6; O2SAT 99
[2024-05-07] MEDS: DAKIN'S SOL HALF STRENGTH (=0.25%) TOPICAL ×2 (10:22→20:22)
--- NOTE | 2024-05-07 11:33 | CASEMGMT ---
Social Work Nephew returned call to this worker. SW explained pt has been starting to decline physically, choosing to sleep more often and socializing less. Explained Dr. Freeman noted pt will not need srugical intervention for her wound and to continue with wound care, which hospice can take over. Discussed setting DC date for 05/14. Nephew expressed understanding and in agreement to DC date and plan. SW to schedule transport, notify [facility] and [facility]. Nephew expressed great appreciation for assistance of this worker. - SW notified Irwin at [facility]. Confirmed DC. Notified [facility] of DC date. Scheduled cot transport through [facility] for 1100. Plan: DC 05/14 to [facility] memory care in [place], [facility] Claudine GARCIAW
[2024-05-07] MEDS: LORazepam 0.5 MG Tablet PO (17:10)
--- NOTE | 2024-05-07 17:12 | NURSING ---
PT HAS NOT SLEPT TODAY AND PER REPORT LAST NIGHT EITHER. PT HAS BEEN NON COMPLIANT WITH CALL LITTLE AND ALARM. PT STATED SHE WANTED TO CALL NEPHEW TO TAKE HER HOME. EXPLAINED TO PT SHE WAS GOING TO STAY WITH US TONIGHT. PT STATED WELL MAYBE HIS GIRL FRIEND WILL COME GET ME. GAVE PT THE PHONE NUMBER. PT DID CALL NEPHEW AND HE EXPLAINED TO PT THAT SHE WAS STAYING TILL NEXT WEEK. PT STATED OK. PT NEPHEW THEN CALLED THIS NURSE AND STATED THAT HIS AUNT HAS CALLED HIM 3 TIMES. THIS NURSE EXPLAINED TO NEPHEW THAT PT HASN'T SLEPT AND HAS BEEN WANTING TO GO HOME AND THAT PT HAS HAD SOME ANXIETY AFTER BEING TOLD SHE WAS GOING TO ASSISTED LIVING. NEPHEW UNDER STOOD AND STATED HE WOULD BE IN TOMORROW TO SEE PT. STATED TO NEPHEW THAT SHE DOES HAVE A PRN THAT THIS NURSE WILL BE GIVING PT TO HOPEFULLY HELP WITH HER ANXIETY. NEPHEW THANKED THIS NURSE. RN AWARE
[2024-05-07] MEDS: Atorvastatin Calcium 40 MG Tablet PO (20:20)
[2024-05-08] MEDS: Ensure Plus High Protein 120 ML LIQUID PO ×4 (06:03→21:01)
[2024-05-08] MEDS: Acetaminophen 500 MG Tablet 1000 MG PO ×3 (06:04→21:04)
[2024-05-08] MEDS: Levothyroxine 75 MCG Tablet PO (06:04)
[2024-05-08 06:44] LABS: Anion Gap 12 (5-15); BUN 35 mg/dL (4-19); BUN/Creat Ratio 44.3 RATIO (10-20); Calcium,Total 8.8 mg/dL (7.6-11.0); Carbon Dioxide 19.7 mmol/L (21.0-32.0); Chloride 108 mmol/L (98-108); Creatinine, Serum 0.78 mg/dL (0.70-1.20); EST Glomerular Filtration Rate 75 (>60); Estimated Creatinine Clearance 35.72 ml/min (50-250); Glucose 84 mg/dL (70-99); Potassium 4.4 mmol/L (3.3-5.1); Sodium Level 139 mmol/L (133-145)
[2024-05-08 08:10] VITALS: BP 138/74; PULSE 60; RESP 16; TEMP 36.6; O2SAT 97
[2024-05-08] MEDS: Calcium Carbonate 500 MG Tablet PO ×2 (08:12→17:43)
[2024-05-08] MEDS: Isosorbide Mononitrate 60 MG Tablet PO (08:13)
[2024-05-08] MEDS: Amiodarone 200 MG Tablet PO ×2 (08:13→21:01)
[2024-05-08] MEDS: Potassium Chloride Oral Tablet 20 MEQ PO ×2 (08:13→21:02)
[2024-05-08] MEDS: Losartan Potassium 100 MG Tablet PO (08:13)
[2024-05-08] MEDS: APIXABAN 5 MG TABLET PO ×2 (08:13→21:02)
[2024-05-08 08:14] VITALS: BP 138/74; PULSE 60
[2024-05-08] MEDS: Metoprolol(XL)Succ 25 MG Tablet PO (08:14)
[2024-05-08] MEDS: Menthol/Lanolin/Calamine/Znox 113 GM Tube 1 APPLIC TOPICAL ×2 (08:14→20:59)
[2024-05-08] MEDS: Clopidogrel Bisulfate 75 MG Tablet PO (08:14)
[2024-05-08] MEDS: Senna/Docusate Sodium 1 Tablet PO ×2 (08:14→21:03)
[2024-05-08] MEDS: DAKIN'S SOL HALF STRENGTH (=0.25%) TOPICAL ×2 (09:45→20:58)
[2024-05-08 13:00] VITALS: PULSE 60; RESP 16; O2SAT 97
--- NOTE | 2024-05-08 17:40 | NURSING ---
FAMILY CAME IN AND TOOK PT DENTURES HOME.
[2024-05-08] MEDS: Atorvastatin Calcium 40 MG Tablet PO (21:03)
[2024-05-09] MEDS: Acetaminophen 500 MG Tablet 1000 MG PO ×3 (05:26→20:06)
[2024-05-09] MEDS: Levothyroxine 75 MCG Tablet PO (05:26)
[2024-05-09] MEDS: Ensure Plus High Protein 120 ML LIQUID PO ×4 (05:26→20:02)
[2024-05-09] MEDS: Calcium Carbonate 500 MG Tablet PO ×2 (07:58→17:10)
[2024-05-09 07:59] VITALS: BP 145/76; PULSE 58
[2024-05-09] MEDS: Metoprolol(XL)Succ 25 MG Tablet PO (07:59)
[2024-05-09] MEDS: Losartan Potassium 100 MG Tablet PO (07:59)
[2024-05-09] MEDS: Clopidogrel Bisulfate 75 MG Tablet PO (07:59)
[2024-05-09] MEDS: Amiodarone 200 MG Tablet PO ×2 (07:59→20:07)
[2024-05-09] MEDS: Isosorbide Mononitrate 60 MG Tablet PO (07:59)
[2024-05-09] MEDS: APIXABAN 5 MG TABLET PO ×2 (07:59→20:09)
[2024-05-09] MEDS: Potassium Chloride Oral Tablet 20 MEQ PO ×2 (07:59→20:08)
[2024-05-09] MEDS: Senna/Docusate Sodium 1 Tablet PO ×2 (07:59→20:07)
[2024-05-09] MEDS: Menthol/Lanolin/Calamine/Znox 113 GM Tube 1 APPLIC TOPICAL ×2 (08:00→20:04)
[2024-05-09 08:30] VITALS: BP 145/76; PULSE 58; RESP 18; TEMP 36.6; O2SAT 98
[2024-05-09 09:00] VITALS: PULSE 58; RESP 18; O2SAT 98
[2024-05-09 10:15] VITALS: BP 140/72; PULSE 57; RESP 16; TEMP 36.2; O2SAT 96
--- NOTE | 2024-05-09 10:15 | NURSING ---
Patient reported to activity personnel that she was feeling hot and noted to be fanning self with paper. This nurse went in to assess patient. Vs obtained, BP140/72, T97.2, P57, RR16, QSM541% RA. Warm to touch. Patient had 1 sheet, 1 bath blanket, and 1 personal moderately heavy blanket on. Personal blanket and bath blanket removed and sheet adjusted. Patient stated she felt a little better. LCTA. No cough noted. Reports having a stuffy/running nose. Will cont to monitor for any changes. Currently resting in bed, call light in reach.
[2024-05-09] MEDS: DAKIN'S SOL HALF STRENGTH (=0.25%) TOPICAL (20:01)
[2024-05-09] MEDS: Atorvastatin Calcium 40 MG Tablet PO (20:05)
[2024-05-10] MEDS: Levothyroxine 75 MCG Tablet PO (05:06)
[2024-05-10] MEDS: Ensure Plus High Protein 120 ML LIQUID PO ×4 (05:07→21:31)
[2024-05-10] MEDS: Acetaminophen 500 MG Tablet 1000 MG PO ×3 (05:07→21:30)
[2024-05-10 09:29] VITALS: BP 152/73; PULSE 57; RESP 16; TEMP 36.6; O2SAT 100
[2024-05-10] MEDS: Calcium Carbonate 500 MG Tablet PO ×2 (09:31→16:41)
[2024-05-10 09:33] VITALS: PULSE 57
[2024-05-10] MEDS: APIXABAN 5 MG TABLET PO ×2 (09:33→21:31)
[2024-05-10] MEDS: Potassium Chloride Oral Tablet 20 MEQ PO ×2 (09:33→21:32)
[2024-05-10] MEDS: Clopidogrel Bisulfate 75 MG Tablet PO (09:33)
[2024-05-10] MEDS: Metoprolol(XL)Succ 25 MG Tablet PO (09:33)
[2024-05-10] MEDS: Amiodarone 200 MG Tablet PO ×2 (09:33→21:31)
[2024-05-10] MEDS: Losartan Potassium 100 MG Tablet PO (09:33)
[2024-05-10] MEDS: Isosorbide Mononitrate 60 MG Tablet PO (09:33)
[2024-05-10] MEDS: Senna/Docusate Sodium 1 Tablet PO ×2 (09:33→21:32)
[2024-05-10] MEDS: Menthol/Lanolin/Calamine/Znox 113 GM Tube 1 APPLIC TOPICAL ×2 (09:34→21:31)
[2024-05-10] MEDS: DAKIN'S SOL HALF STRENGTH (=0.25%) TOPICAL ×2 (09:34→21:32)
[2024-05-10 09:44] VITALS: PULSE 57; RESP 16; O2SAT 92
--- NOTE | 2024-05-10 13:12 | NURSING ---
pt sat up for brkfst and lunch today in recliner chair. assisted to bed approx 1 hr after meals
[2024-05-10 21:30] VITALS: BP 159/55; PULSE 61
[2024-05-10] MEDS: Atorvastatin Calcium 40 MG Tablet PO (21:32)
[2024-05-11] MEDS: Acetaminophen 500 MG Tablet 1000 MG PO ×3 (05:47→20:13)
[2024-05-11] MEDS: Ensure Plus High Protein 120 ML LIQUID PO ×4 (05:47→20:12)
[2024-05-11] MEDS: Levothyroxine 75 MCG Tablet PO (05:47)
[2024-05-11] MEDS: Calcium Carbonate 500 MG Tablet PO ×2 (08:35→16:35)
[2024-05-11 08:36] VITALS: BP 133/74; PULSE 56
[2024-05-11] MEDS: Amiodarone 200 MG Tablet PO ×2 (08:36→20:12)
[2024-05-11] MEDS: Metoprolol(XL)Succ 25 MG Tablet PO (08:36)
[2024-05-11] MEDS: Menthol/Lanolin/Calamine/Znox 113 GM Tube 1 APPLIC TOPICAL ×2 (08:36→20:15)
[2024-05-11] MEDS: Senna/Docusate Sodium 1 Tablet PO ×2 (08:37→20:13)
[2024-05-11] MEDS: Clopidogrel Bisulfate 75 MG Tablet PO (08:37)
[2024-05-11] MEDS: APIXABAN 5 MG TABLET PO ×2 (08:38→20:12)
[2024-05-11] MEDS: Losartan Potassium 100 MG Tablet PO (08:38)
[2024-05-11] MEDS: Potassium Chloride Oral Tablet 20 MEQ PO ×2 (08:38→20:12)
[2024-05-11] MEDS: Isosorbide Mononitrate 60 MG Tablet PO (08:39)
[2024-05-11 08:51] VITALS: BP 133/74; PULSE 57; RESP 16; TEMP 36.1; O2SAT 97
[2024-05-11 10:15] VITALS: PULSE 57; RESP 16; O2SAT 97
[2024-05-11] MEDS: DAKIN'S SOL HALF STRENGTH (=0.25%) TOPICAL ×2 (10:27→20:14)
[2024-05-11] MEDS: Atorvastatin Calcium 40 MG Tablet PO (20:13)
[2024-05-11 20:19] VITALS: BP 147/85; PULSE 62
[2024-05-12] MEDS: Levothyroxine 75 MCG Tablet PO (05:09)
[2024-05-12] MEDS: Acetaminophen 500 MG Tablet 1000 MG PO ×3 (05:09→20:08)
[2024-05-12] MEDS: Ensure Plus High Protein 120 ML LIQUID PO ×4 (05:09→20:05)
[2024-05-12 06:20] LABS: Albumin, Serum 3.7 g/dL (3.4-4.8)
[2024-05-12 08:00] VITALS: BP 137/81; PULSE 58; RESP 16; O2SAT 99
[2024-05-12 08:17] VITALS: BP 137/81; PULSE 58
[2024-05-12] MEDS: Metoprolol(XL)Succ 25 MG Tablet PO (08:17)
[2024-05-12] MEDS: Clopidogrel Bisulfate 75 MG Tablet PO (08:18)
[2024-05-12] MEDS: Isosorbide Mononitrate 60 MG Tablet PO (08:18)
[2024-05-12] MEDS: Senna/Docusate Sodium 1 Tablet PO ×2 (08:18→20:08)
[2024-05-12] MEDS: APIXABAN 5 MG TABLET PO ×2 (08:18→20:06)
[2024-05-12] MEDS: Potassium Chloride Oral Tablet 20 MEQ PO ×2 (08:18→20:07)
[2024-05-12] MEDS: Amiodarone 200 MG Tablet PO ×2 (08:18→20:06)
[2024-05-12] MEDS: Calcium Carbonate 500 MG Tablet PO ×2 (08:18→17:04)
[2024-05-12] MEDS: Losartan Potassium 100 MG Tablet PO (08:18)
[2024-05-12] MEDS: Menthol/Lanolin/Calamine/Znox 113 GM Tube 1 APPLIC TOPICAL ×2 (08:19→20:04)
[2024-05-12] MEDS: DAKIN'S SOL HALF STRENGTH (=0.25%) TOPICAL ×2 (08:19→20:06)
[2024-05-12 09:15] VITALS: PULSE 58; RESP 16; O2SAT 99
--- NOTE | 2024-05-12 09:57 | NURSING ---
Dressings to right foot, mid back, and right hip changed per orders. No drainage noted. No redness or warmth noted. DCD applied. Tolerated well. Denies pain/discomfort. Patient resting in bed with eyes closed. Call light in reach.
[2024-05-12] MEDS: Atorvastatin Calcium 40 MG Tablet PO (20:08)
[2024-05-13 04:07] LABS: Prealbumin 22 mg/dL (9-32)
[2024-05-13] MEDS: Levothyroxine 75 MCG Tablet PO (05:59)
[2024-05-13] MEDS: Acetaminophen 500 MG Tablet 1000 MG PO ×3 (05:59→20:23)
[2024-05-13] MEDS: Ensure Plus High Protein 120 ML LIQUID PO ×4 (06:00→20:18)
[2024-05-13] MEDS: Menthol/Lanolin/Calamine/Znox 113 GM Tube 1 APPLIC TOPICAL ×2 (08:52→20:20)
[2024-05-13] MEDS: Amiodarone 200 MG Tablet PO ×2 (08:53→20:21)
[2024-05-13] MEDS: APIXABAN 5 MG TABLET PO ×2 (08:54→20:21)
[2024-05-13] MEDS: Losartan Potassium 100 MG Tablet PO (08:54)
[2024-05-13] MEDS: Potassium Chloride Oral Tablet 20 MEQ PO ×2 (08:54→20:22)
[2024-05-13] MEDS: Isosorbide Mononitrate 60 MG Tablet PO (08:54)
[2024-05-13 08:55] VITALS: BP 171/84; PULSE 58
[2024-05-13] MEDS: Metoprolol(XL)Succ 25 MG Tablet PO (08:55)
[2024-05-13] MEDS: Clopidogrel Bisulfate 75 MG Tablet PO (08:55)
[2024-05-13] MEDS: Senna/Docusate Sodium 1 Tablet PO ×2 (08:55→20:22)
[2024-05-13] MEDS: Calcium Carbonate 500 MG Tablet PO ×2 (09:04→17:12)
[2024-05-13 09:07] VITALS: BP 171/84; PULSE 58; RESP 16; TEMP 37.1; O2SAT 98
[2024-05-13 10:30] VITALS: PULSE 58; RESP 16; O2SAT 98
[2024-05-13 12:50] VITALS: BMI 18.0
[2024-05-13] MEDS: DAKIN'S SOL HALF STRENGTH (=0.25%) TOPICAL ×2 (12:51→20:19)
--- NOTE | 2024-05-13 14:58 | PN.SURG_ITS ---
<Statement entered by Gm Freeman MD - 05/13/24 21:16> I have personally performed a face to face assessment of the patient and have reviewed the RICHELLE Note. Subjective Subjective Patient is doing well. She denies any complaints at this time. Objective Data Objective Data Vital Signs: Vital Signs Temp Pulse Resp BP Pulse Ox O2 Del Method O2 Flow Rate 98.7 F 58 L 16 171/84 H 98 Room Air 94 05/13/24 09:07 05/13/24 09:07 05/13/24 09:07 05/13/24 09:07 05/13/24 09:07 05/13/24 09:07 04/14/24 16:50 Oxygen Flow Rate (L/min) 94 Oxygen Delivery Method Room Air Weight: 95 lb 4.8 oz Body Mass Index (BMI) 18.0 Intake & Output: Intake and Output for Last 24 Hours 05/11/24 05/12/24 05/13/24 23:59 23:59 23:59 Intake Total 800 / 800 540 / 540 600 / 600 Balance 800 / 800 540 / 540 600 / 600 Medical Nutrition Assessment Dietitian: Malnutrition Criteria Met Start: 04/09/24 12:04 Freq: Status: Active Protocol: Document 05/07/24 10:08 SLA (Rec: 05/07/24 10:08 SLA [email or web address]) Nutrition Malnutrition Evidence of Yes Malnutrition Exists Evidenced By Suboptimal Energy Intake (Moderate),Weight Loss (Severe ),Physical Changes (Moderate) Intake Problem Increased Nutrient Needs (specify) Etiology protein r/t skin breakdown Signs/Symptoms as evidenced by PI to midback, R hip, R foot Status Active Problem Inadequate Oral Intake Status Inactive Problem Clinical Problem Biting/Chewing Difficulty Etiology related to loose fitting top dentures Signs/Symptoms as evidenced by need for modified consistency diet to help w/ ease of eating per nsg Status Active Problem Acute Disease or Injury Related Malnutrition Etiology related to inadequate energy intake Signs/Symptoms as evidenced by 4.5% unintended wt loss x 2 wks, meeting ~50% of est nutritional needs and fat/muscle loss in face/orbitals/clavicle region also w/ multiple PI midback and R hip/R foot Status Active Problem Recommendation Dietitian Will order magic cup w/ lunch and dinner for increased Recommendations/ nutrition if consumed. Changes Rec consider appetite stimulant to help encourage increased po intake at meals/ONS Continue liberal regular diet d/t signs and symptoms of malnutrition Continue to provide fortified foods at meals as able for increased nutrition if consumed. Continue Ari bid w/ meals and 4 oz ensure plus high protein 4x/day w/ medpass for increased nutrition if consumed. Lab / Micro Data Attestation: I reviewed the patient's lab results. 05/07/24 05:22 05/08/24 05:08 Labs: Laboratory Results - last 24 hr 05/12/24 05:08: Prealbumin 22 Micro: Microbiology 04/22/24 18:30 Wound - Hip Gram Stain - Final 04/22/24 18:30 Wound - Hip Wound Culture - Final Proteus mirabilis 04/16/24 05:00 Nasal Secretion SARS-CoV-2 Antigen (Rapid) - Final 04/11/24 20:15 Urine Catheter - Catheter Urine Culture - Final Culture exhibits no growth. 04/12/24 20:00 Mucosa - Nasopharyngeal Respiratory Panel (PCR) - Final 04/12/24 09:40 Nasal Secretion SARS-CoV-2 Antigen (Rapid) - Final 04/09/24 05:00 Nasal Secretion SARS-CoV-2 Antigen (Rapid) - Final Physical Exam Narrative Right trochanter pressure ulcer is a stage III. It shows healthy granulation tissue. The undermining from 10-3 is decreasing. Dana wound is clear. Const alert General Appearance: cooperative HEENT normocephalic Eyes General Eye: normal appearance of both eyes Resp normal respiratory effort Effort and Inspection: able to speak in complete sentences Extremity normal to inspection Assessment & Plan Assessment/Plan (1) Trochanteric ulcer of right hip: PLAN: Plan Continue to off load. Ideally she will be on a low air loss mattress to help prevent pressure. Turn every 2 hours while in bed. Wound care is Dakin's 0.25% moistened gauze covered with ABD/super absorber twice daily. Encouraged high protein diet. She is planning on being discharged tomorrow to [facility] in [place] and [facility] care hospice. Discussed plan of care with Dr. Freeman. Typically she would follow up with Dr. Freeman at the wound healing center as an outpatient, but if she is on Hospice services, they will be able to manage her wound. Charges/Coding Visit Charges Inpatient E&M: [id number] [facility] L1
--- NOTE | 2024-05-13 15:05 | CASEMGMT ---
Social Work SW completed BIMS (12/10) and PHQ-2 () for MDS assessment. Claudine Garcia DEBURRER IT SUPPORT SPECIALIST
--- NOTE | 2024-05-13 15:06 | WOUNDNOTE ---
wound photo: right hip
[2024-05-13] MEDS: Atorvastatin Calcium 40 MG Tablet PO (20:22)
[2024-05-14] MEDS: Levothyroxine 75 MCG Tablet PO (05:02)
[2024-05-14] MEDS: Ensure Plus High Protein 120 ML LIQUID PO (05:02)
[2024-05-14] MEDS: Acetaminophen 500 MG Tablet 1000 MG PO (05:02)
[2024-05-14 05:50] LABS: Absolute Lymphocyte Count 1.77 X10^3/uL (0.83-4.51); Absolute Neutrophil Count 4.9 X10^3/uL (2.0-7.7); Basophil# 0.06 X10^3/uL; Basophil% 0.8 % (0-1); Eosinophil# 0.21 X10^3/uL; Eosinophils% 2.7 % (0-5); Hematocrit 37.6 % (37-47); Lymphocyte # 1.77 X10^3/ul (0.83-4.51); Lymphocyte % 22.8 % (19-41); Mean Corp Hgb Conc 31.9 g/dL (32-36); Mean Corpuscular Hgb 26.4 pg (27.0-32.0); Mean Corpuscular Volume 82.8 fL (81-99); Mean Platelet Vol. 9.7 fl (6.2-12.0); NRBC Flagged by Analyzer 0 % (0-5); Neutrophil # 4.94 X10^3/uL (2.7-7.7); Neutrophil % 63.8 % (47-70); POSITIVE MORPHOLOGY YES; Platelet Count 245 K/mm3 (150-450); RBC Distribution Width CV 20.7 % (11.6-14.6); Red Blood Count 4.54 M/mm3 (4.2-5.4); White Blood Count 7.8 K/mm3 (4.4-11.0)
[2024-05-14 05:53] VITALS: PULSE 62; RESP 16; O2SAT 98
[2024-05-14 06:11] LABS: Differential Indicated SCAN CRITERIA MET
[2024-05-14 06:13] LABS: Anion Gap 9 (5-15); BUN 31 mg/dL (4-19); BUN/Creat Ratio 42.8 RATIO (10-20); Calcium,Total 8.9 mg/dL (7.6-11.0); Carbon Dioxide 21.3 mmol/L (21.0-32.0); Chloride 106 mmol/L (98-108); Creatinine, Serum 0.73 mg/dL (0.70-1.20); EST Glomerular Filtration Rate 81 (>60); Estimated Creatinine Clearance 35.72 ml/min (50-250); Glucose 98 mg/dL (70-99); Potassium 3.9 mmol/L (3.3-5.1); Sodium Level 136 mmol/L (133-145)
[2024-05-14 07:08] LABS: Anisocytosis 1+; Microcytosis 1+
[2024-05-14] MEDS: Calcium Carbonate 500 MG Tablet PO (07:49)
[2024-05-14] MEDS: Amiodarone 200 MG Tablet PO (07:50)
[2024-05-14] MEDS: Menthol/Lanolin/Calamine/Znox 113 GM Tube 1 APPLIC TOPICAL (07:50)
[2024-05-14] MEDS: Isosorbide Mononitrate 60 MG Tablet PO (07:51)
[2024-05-14] MEDS: Losartan Potassium 100 MG Tablet PO (07:51)
[2024-05-14] MEDS: APIXABAN 5 MG TABLET PO (07:51)
[2024-05-14 07:52] VITALS: BP 159/83; PULSE 59
[2024-05-14] MEDS: Potassium Chloride Oral Tablet 20 MEQ PO (07:52)
[2024-05-14] MEDS: Metoprolol(XL)Succ 25 MG Tablet PO (07:52)
[2024-05-14] MEDS: Senna/Docusate Sodium 1 Tablet PO (07:52)
[2024-05-14] MEDS: Clopidogrel Bisulfate 75 MG Tablet PO (07:52)
[2024-05-14 07:59] VITALS: BP 159/83; PULSE 59; RESP 16; TEMP 36.2; O2SAT 98
--- NOTE | 2024-05-14 09:42 | NURSING ---
[facility] PICKED PT UP AT 0940 TO TRANSFER PT TO [place]. [facility] AND GAVE REPORT AND CALLED PT JEANETTE AND STATED PT WAS BEING TRANSPORTED EARLIER,JEANETTE STATED THANK YOU.
== END 2024-05-14 09:40 | disposition hospice, inpatient (51) | DRG 308 ==
PROVIDERS: Admitting Provider Family Medicine Geriatric Medicine; PCP Family Medicine Geriatric Medicine; Visit Provider Family Medicine Geriatric Medicine
DX: I47.20 Ventricular tachycardia, unspecified (principal); L89.214 Pressure ulcer of right hip, stage 4; E44.0 Moderate protein-calorie malnutrition; M62.82 Rhabdomyolysis; N39.0 Urinary tract infection, site not specified; Z16.30 Resistance to unspecified antimicrobial drugs; Z68.1 Body mass index [BMI] 19.9 or less, adult; G30.9 Alzheimer's disease, unspecified; E03.9 Hypothyroidism, unspecified; I10 Essential (primary) hypertension; E78.00 Pure hypercholesterolemia, unspecified; I25.5 Ischemic cardiomyopathy; I25.10 Atherosclerotic heart disease of native coronary artery without angina pectoris; I48.0 Paroxysmal atrial fibrillation; F17.210 Nicotine dependence, cigarettes, uncomplicated; E87.6 Hypokalemia; F02.80 Dementia in other diseases classified elsewhere, unspecified severity, without behavioral disturbance, psychotic disturbance, mood disturbance, and anxiety; Z95.5 Presence of coronary angioplasty implant and graft; Z79.01 Long term (current) use of anticoagulants; Z79.890 Hormone replacement therapy; Z79.02 Long term (current) use of antithrombotics/antiplatelets; Z95.810 Presence of automatic (implantable) cardiac defibrillator; Z79.899 Other long term (current) drug therapy; B96.4 Proteus (mirabilis) (morganii) as the cause of diseases classified elsewhere
CPT/HCPCS: 36415; 71046; 73502; 80048; 81001; 82040; 82962; 84134; 85025; 87070; 87077; 87086; 87186; 87205; 87426; 87633; 87640; 87811; 92507; 92508; 92522; 92526; 92610; 97110; 97116; 97129; 97130; 97162; 97166; 97530; 97535; 97802; 99406; A4216

== ENCOUNTER → 2024-04-25 | Outpatient (CLI) | payer MEDICARE, BC, SELFPAY ==
--- NOTE | 2024-04-25 09:06 | NM_ITS ---
PROCEDURE: BONE SCAN THREE PHASE REASON FOR EXAM: Right hip infection. TECHNIQUE: Blood flow, blood pool, and delayed phase imaging of the pelvis after radiopharmaceutical administration RADIOPHARMACEUTICAL: 26.8 mCi Technetium-99m MDP IV COMPARISON: CORRELATION WITH EXISTING RELEVANT IMAGING STUDIES (i.e. x-ray, MRI, CT, etc.): No existing relevant imaging study available , patient did not have a previous relevant imaging study. FINDINGS: Blood flow: Symmetrical. Blood pool: Focal increased uptake within the soft tissues overlying the right hip. Delayed: Unremarkable. NM/Bone Scan Three Phase IMPRESSION: Findings suggestive of localized soft tissue inflammatory process overlying the right hip joint. No bony abnormality is seen. Reading Location: [id number]
== END | disposition home or self-care (01) ==
PROVIDERS: PCP Family Medicine Geriatric Medicine; Referring Provider Family Medicine Geriatric Medicine; Visit Provider Family Medicine Geriatric Medicine
DX: L08.9 Local infection of the skin and subcutaneous tissue, unspecified (principal)
CPT/HCPCS: 78315; A9503